=== PATIENT | female | born 1965 | race Caucasian/White ===

== ENCOUNTER 2020-10-25 05:43 | Inpatient (IN) | payer OTHER, SELFPAY ==
[2020-10-25] VITALS (10 sets, daily range): BP systolic 117–150; BP diastolic 56–73; PULSE 18–79; RESP 16–20; TEMP 36.4–36.8; O2SAT 95–98; BMI 40.6
--- NOTE | 2020-10-25 06:40 | ECG_ITS ---
Test Reason : CHEST DISCOMFORT Blood Pressure : / mmHG Vent. Rate : 069 BPM Atrial Rate : 069 BPM P-R Int : 148 ms QRS Dur : 080 ms QT Int : 392 ms P-R-T Axes : 043 024 030 degrees QTc Int : 420 ms Normal sinus rhythm Normal ECG No previous ECGs available Referred By: Kei Slater Electronically Signed By:DEVIN OMER MD
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
[2020-10-25 07:17] LABS: MANUAL DIFF FLAG NO
[2020-10-25] MEDS: clonazePAM 0.5 MG TABLET PO ×3 (07:24→20:20)
[2020-10-25] MEDS: Omeprazole 40 MG CAPSULE.DR PO (07:24)
--- NOTE | 2020-10-25 07:25 | PC.NURSE ---
report taken form Jose Carlos GREER. pt resting on stretcher. no distress. calm and cooperative. pt reports feeling overwhelmed from her job. reports that this morning she felt like she didnt want to feel the pain anymore . reports she had thoughts of overdosing on meds but called her therapist/ and then came to ED for evaluation. pt labs drawn and covid/flu/rsv complete. when pt is medically clear will call n or swat for eval. pt did not want to take catepress with klonopin so only took klonopin. aware.
[2020-10-25 07:35] LABS: Basophils Percent Auto 0.3 % (0-2); Eosinophils Absolute Auto 0.1 X10*3/uL (0.0-0.4); Eosinophils Percent Auto 1.7 % (0-4); Hematocrit 45.7 % (37-47); Hemoglobin 15.3 g/dl (12.0-16.0); Imm Gran Abs Auto 0.04 X10*3/uL (0.00-0.03); Imm Gran Pct Auto 0.6 % (0.0-0.4); Lymphocytes Absolute Auto 1.4 X10*3/uL (1.2-4.9); Lymphocytes Percent Auto 20.1 % (20-40); Mean Corpuscular HGB Conc 33.5 g/dl (31.0-35.0); Mean Corpuscular Hemoglobin 30.4 pg (27.0-33.0); Mean Corpuscular Volume 90.7 fL (80-98); Mean Platelet Volume 9.7 fL (9.4-12.3); Monocytes Absolute Auto 0.5 X10*3/uL (0.1-1.2); Monocytes Percent Auto 7.6 % (2-11); Neutrophils Absolute Auto 4.8 X10*3/uL (2.0-8.3); Neutrophils Percent Auto 69.7 % (45-73); Platelet Count 257 X10*3/uL (160-400); Red Blood Count 5.04 X10*6/uL (4.20-5.50); Red Cell Distribution Width 12.4 % (11.0-16.0); White Blood Count 6.9 X10*3/uL (4.8-10.8)
[2020-10-25 07:38] LABS: Ethanol < 10 mg/dL
[2020-10-25 07:41] LABS: Alanine Aminotransferase 12 U/L (0-31); Alkaline Phosphatase 82 U/L (39-117); Anion Gap 12 (12-20); Aspartate Amino Transferase 21 U/L (5-31); Bilirubin Total 0.5 mg/dL (0.0-1.0); Blood Urea Nitrogen 14 mg/dL (9-16); Calcium 9.5 mg/dL (8.4-10.2); Carbon Dioxide 29 mmol/L (22-29); Chloride 106 mmol/L (96-108); Creatinine Clr Calc Pharmacy 79.3; Estimated Glomerular Filt Rate > 60; Glucose Random 106 mg/dL (60-115); Potassium 4.2 mmol/l (3.3-5.1); Sodium 143 mmol/L (135-145); Total Protein 6.5 g/dL (6.5-8.0)
[2020-10-25 07:47] LABS: Troponin-I High Sensitivity 5.8 ng/L (<3.5-17.0)
[2020-10-25 07:59] LABS: Influenza A PCR NEGATIVE (Negative); Influenza B PCR NEGATIVE (Negative); Resp Syncy Virus RNA Qual PCR NEGATIVE (Negative); SARS COV2 PCR INHOUSE NEGATIVE (Negative)
--- NOTE | 2020-10-25 09:28 | PC.NURSE ---
Late entry: pt transferred to ED pod. Pt reporting that she is not feeling well physically or emotionally, no further details. Reviewed crisis process with pt, and oriented to pod.
[2020-10-25 09:30] LABS: Glucose Urine UA NEG (NEG); Leukocyte Esterase Urine NEG (NEG); Nitrite Urine NEG (NEG); Specific Gravity - Urine 1.015 (1.005-1.025); Urine Blood NEG (NEG); Urine Ketones NEG (NEG); Urine Protein NEG (NEG-TRACE)
[2020-10-25 09:32] LABS: Appearance Urine CLEAR; Color Urine YELLOW
--- NOTE | 2020-10-25 09:55 | PC.NURSE ---
care team in to evaluate pt
[2020-10-25 10:06] LABS: Amphetamine Screen Urine Not Detected (Not Detect); Barbiturates, Urine Not Detected (Not Detect); Benzodiazepines Screen Urine Not Detected (Not Detect); Cannabinoid Screen Urine Not Detected (Not Detect); Cocaine Screen Urine Not Detected (Not Detect); Opiate Screen Urine Not Detected (Not Detect); Phencyclidine Screen Urine Not Detected (Not Detect)
--- NOTE | 2020-10-25 10:25 | PC.NURSE ---
Seen by CARE team, plan for inpatient bedsearch
[2020-10-25] MEDS: cloNIDine HCL 0.1 MG TABLET PO ×3 (10:42→21:25)
[2020-10-25] MEDS: Venlafaxine HCl ER 75 MG CAP.ER.24H PO (10:42)
--- NOTE | 2020-10-25 11:12 | PC.NURSE ---
Pt awake, alert, seen by care team, aware that she is awaiting inpatient bed. Reviewed w/ pty inpatient process- pt states she was admitted to psychiatric unit 17 years ago and so is somewhat familiar. No concerns reported at this time. Given am medications.
--- NOTE | 2020-10-25 15:55 | PC.NURSE ---
Pt resting in room, awake, watching television.
--- NOTE | 2020-10-25 18:51 | PC.NURSE ---
Pt ate turkey sandwich, but unable to eat dinner due to anxiety. Pt states she is anxious about inpatient admission. Spoke w/ pt about inpatient process, pt appeared to be reassured.
--- NOTE | 2020-10-25 20:14 | PC.NURSE ---
Patient in milieu watching TV, pleasant, reported anxiety 03/23, PRN klonopin 0.5 mg administered as ordered, RN to RN reported completed with M5, provider notified/transfer order in placed, deposition pending admission, will continue to monitor.
--- NOTE | 2020-10-25 22:19 | PC.ADMIT ---
this is the first admission for this 55 year old female. legal CV. dx: mdd, anxiety d/o. no drug or alcohol issues. was referred to by the care team after assessment in the er. nurse to nurse, collateral information obtained prior to admission. pt has many outpatient providers and has signed consent for all. reports + support system and has a HCP. encouraged to bring form into the hospital. 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 pt presents as anxious, reports trouble with concentration and focus. low motivation. reports poor sleep. reports decreased appetite reporting she has lost weight, 18# in 6 weeks. pt has multiple medical issues-she uses a cpap machine and has been encouraged to have it brought in. gerd, htn, herpes. pt also has a condition call common variable immune deficiency inwhich she treated with hizentra. this is a SQ administration with a portable pump. it is due on Saturday. pt encouraged to have medication and portable pump brought into the hospital. pt also reports stress incontinence. pt has already received the flu shot. oriented to unit.
[2020-10-25] MEDS: Magnesium Hydrox/Alum Hydrox 30 ML ORAL.SUSP PO (23:07)
[2020-10-25] MEDS: hydrOXYzine HCL 25 MG TABLET PO (23:09)
[2020-10-26 06:10] VITALS: BP 105/65; PULSE 73; RESP 18; TEMP 37; O2SAT 95
[2020-10-26] MEDS: Omeprazole 40 MG CAPSULE.DR PO (06:44)
[2020-10-26 08:48] LABS: Cholesterol 210 mg/dL; HDL Cholesterol 60 mg/dL; LDL Cholesterol Calculated 134 mg/dl; Triglycerides 83 mg/dL
[2020-10-26 09:08] LABS: Free T4 (Free Thyroxine) 1.15 ng/dL (0.71-1.85)
[2020-10-26 09:27] LABS: Estimated Average Glucose 97 mg/dL
[2020-10-26] MEDS: Venlafaxine HCl ER 75 MG CAP.ER.24H PO (09:29)
[2020-10-26 09:30] VITALS: BP 105/65; PULSE 73
[2020-10-26 09:30] LABS: Vitamin B12 299 pg/mL (200-900)
[2020-10-26] MEDS: cloNIDine HCL 0.1 MG TABLET PO ×3 (09:30→20:30)
[2020-10-26] MEDS: clonazePAM 0.5 MG TABLET PO ×3 (09:30→20:28)
[2020-10-26] MEDS: Acetaminophen 325 MG TABLET 650 MG PO (12:06)
[2020-10-26 14:02] VITALS: BP 117/57; PULSE 82
[2020-10-26 14:04] VITALS: BP 117/57; PULSE 82
[2020-10-26] MEDS: Magnesium Hydrox/Alum Hydrox 30 ML ORAL.SUSP PO (17:18)
[2020-10-26 18:00] VITALS: BP 118/76; PULSE 78; TEMP 36.3
[2020-10-26 20:30] VITALS: BP 130/76; PULSE 95
[2020-10-26] MEDS: hydrOXYzine HCL 25 MG TABLET PO (20:31)
--- NOTE | 2020-10-26 21:20 | P.HPPS_ITS ---
HPI Chief Complaint: MAJOR DEPRESSION,NIURKA Sources of Information: patient interviewed, chart reviewed and crisis/core team assessment reviewed HPI Narrative: Ms. Luz is a 55 year-old woman with hx of MDD/NIURKA who self presented to [facility] due to increased anxiety, depressed mood, intrusive/ruminations about somatic concerns. 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 She reports this job was very stressors. It appears that pt began to have somewhat unrealistic fear of harming a patient or having a patient code and not being able to respond appropriately. However, she reports she never had any incident with any of her patients. She also reports that she began checking her own BP incessantly during the day and although slightly elevated but fear her life was at risk. She reports worrying about her financial situation if she can't return to her job or find a new one less stressful. She reports fair sleep. She reports episodes of chest tightness, itchiness on back of neck when feeling anxious. She also has a number of GI complaints and states she has seen GI specialist who gave her carafe. She reports anxious mood has significantly increased to the point that she feels paralyzed. This has trigger symptoms of depression as patient reports feeling increasingly more helpless/hopeless about recovering from severe anxious mood and psychosomatic components. Pt reports she was started on Venlafaxine in August 37.5mg, increased to 75mg po daily begining of September 2020. Pt reports partial response. Past Psychiatric History: Inpatient admission: last inpt 17 years ago, episode of anxiety/depressio n/nightmares, feeling like bugs coming out of her mouth. OP: Pt sees Dr. Xuan Blanton MD; Anny Argueta PsyD ([phone]) Suicide attempts:none Past medication trials: prozac, wellbutrin, lithium, gabapentin, clonidine, effexor, gabapentin, clonazepam. Medical Evaluation Reviewed: Yes [facility] Medical History (Updated 10/27/20 @ 17:55 by Swapna Magaña) Anxiety Depression Hypertension PTSD (post-traumatic stress disorder) Surgical History History of hysterectomy Diagnostics Vital Signs (24Hr): Vital Signs - 24 hr 10/25/20 21:25 10/26/20 06:10 10/26/20 09:30 Temperature 98.6 F Pulse Rate 79 73 73 Respiratory Rate 18 Blood Pressure 117/56 L 105/65 105/65 Pulse Oximetry 95 10/26/20 14:02 10/26/20 14:04 10/26/20 20:30 Temperature Pulse Rate 82 82 95 Respiratory Rate Blood Pressure 117/57 L 117/57 L 130/76 Pulse Oximetry Body Mass Index 40.6 Labs Results: 10/25/20 07:09 10/25/20 07:09 Labs: Laboratory Results - last 48 hr 10/25/20 10/25/20 10/25/20 07:09 07:09 07:09 WBC 6.9 RBC 5.04 Hgb 15.3 Hct 45.7 MCV 90.7 MCH 30.4 MCHC 33.5 RDW 12.4 Plt Count 257 MPV 9.7 Immature Gran % (Auto) 0.6 H Neut % (Auto) 69.7 Lymph % (Auto) 20.1 Hartley % (Auto) 7.6 Eos % (Auto) 1.7 Baso % (Auto) 0.3 Lymph # (Auto) 1.4 Hartley # (Auto) 0.5 Eos # (Auto) 0.1 Baso # (Auto) 0.0 Abs Immat Gran (auto) 0.04 H Absolute Neuts (auto) 4.8 Absolute Nucleated RBC 0.000 Nucleated RBC % (auto) 0.0 Sodium 143 Potassium 4.2 Chloride 106 Carbon Dioxide 29 Anion Gap 12 BUN 14 Creatinine 0.90 Estim Creat Clear Calc 79.3 Estimated GFR > 60 Random Glucose 106 Estimat Average Glucose Hemoglobin A1c % Calcium 9.5 Magnesium Total Bilirubin 0.5 AST 21 ALT 12 Alkaline Phosphatase 82 Troponin I High Sens 5.8 Total Protein 6.5 Albumin 4.0 Triglycerides Cholesterol LDL Cholesterol, Calc HDL Cholesterol Vitamin B12 Folate TSH 1.20 Free T4 Urine Color Urine Appearance Urine pH Ur Specific Iuka Urine Protein Urine Glucose (UA) Urine Ketones Urine Blood Urine Nitrite Ur Leukocyte Esterase Urine Opiates Screen Ur Barbiturates Screen Ur Phencyclidine Scrn Ur Amphetamines Screen U Benzodiazepines Scrn Urine Cocaine Screen U Marijuana (THC) Screen Ethyl Alcohol Coronavirus (PCR) Influenza Type A (PCR) Influenza Type B (PCR) RSV RNA Qual (PCR) 10/25/20 10/25/20 10/25/20 07:09 07:10 09:01 WBC RBC Hgb Hct MCV MCH MCHC RDW Plt Count MPV Immature Gran % (Auto) Neut % (Auto) Lymph % (Auto) Hartley % (Auto) Eos % (Auto) Baso % (Auto) Lymph # (Auto) Hartley # (Auto) Eos # (Auto) Baso # (Auto) Abs Immat Gran (auto) Absolute Neuts (auto) Absolute Nucleated RBC Nucleated RBC % (auto) Sodium Potassium Chloride Carbon Dioxide Anion Gap BUN Creatinine Estim Creat Clear Calc Estimated GFR Random Glucose Estimat Average Glucose Hemoglobin A1c % Calcium Magnesium Total Bilirubin AST ALT Alkaline Phosphatase Troponin I High Sens Total Protein Albumin Triglycerides Cholesterol LDL Cholesterol, Calc HDL Cholesterol Vitamin B12 Folate TSH Free T4 Urine Color YELLOW Urine Appearance CLEAR Urine pH 7.0 Ur Specific Iuka 1.015 Urine Protein NEG Urine Glucose (UA) NEG Urine Ketones NEG Urine Blood NEG Urine Nitrite NEG Ur Leukocyte Esterase NEG Urine Opiates Screen Ur Barbiturates Screen Ur Phencyclidine Scrn Ur Amphetamines Screen U Benzodiazepines Scrn Urine Cocaine Screen U Marijuana (THC) Screen Ethyl Alcohol < 10 Coronavirus (PCR) NEGATIVE Influenza Type A (PCR) NEGATIVE Influenza Type B (PCR) NEGATIVE RSV RNA Qual (PCR) NEGATIVE 10/25/20 10/26/20 10/26/20 09:01 08:00 08:00 WBC RBC Hgb Hct MCV MCH MCHC RDW Plt Count MPV Immature Gran % (Auto) Neut % (Auto) Lymph % (Auto) Hartley % (Auto) Eos % (Auto) Baso % (Auto) Lymph # (Auto) Hartley # (Auto) Eos # (Auto) Baso # (Auto) Abs Immat Gran (auto) Absolute Neuts (auto) Absolute Nucleated RBC Nucleated RBC % (auto) Sodium Potassium Chloride Carbon Dioxide Anion Gap BUN Creatinine Estim Creat Clear Calc Estimated GFR Random Glucose Estimat Average Glucose 97 Hemoglobin A1c % 5.0 Calcium Magnesium 2.0 Total Bilirubin AST ALT Alkaline Phosphatase Troponin I High Sens Total Protein Albumin Triglycerides 83 Cholesterol 210 LDL Cholesterol, Calc 134 HDL Cholesterol 60 Vitamin B12 Folate TSH Free T4 1.15 Urine Color Urine Appearance Urine pH Ur Specific Iuka Urine Protein Urine Glucose (UA) Urine Ketones Urine Blood Urine Nitrite Ur Leukocyte Esterase Urine Opiates Screen Not Detected Ur Barbiturates Screen Not Detected Ur Phencyclidine Scrn Not Detected Ur Amphetamines Screen Not Detected U Benzodiazepines Scrn Not Detected Urine Cocaine Screen Not Detected U Marijuana (THC) Screen Not Detected Ethyl Alcohol Coronavirus (PCR) Influenza Type A (PCR) Influenza Type B (PCR) RSV RNA Qual (PCR) 10/26/20 08:00 WBC RBC Hgb Hct MCV MCH MCHC RDW Plt Count MPV Immature Gran % (Auto) Neut % (Auto) Lymph % (Auto) Hartley % (Auto) Eos % (Auto) Baso % (Auto) Lymph # (Auto) Hartley # (Auto) Eos # (Auto) Baso # (Auto) Abs Immat Gran (auto) Absolute Neuts (auto) Absolute Nucleated RBC Nucleated RBC % (auto) Sodium Potassium Chloride Carbon Dioxide Anion Gap BUN Creatinine Estim Creat Clear Calc Estimated GFR Random Glucose Estimat Average Glucose Hemoglobin A1c % Calcium Magnesium Total Bilirubin AST ALT Alkaline Phosphatase Troponin I High Sens Total Protein Albumin Triglycerides Cholesterol LDL Cholesterol, Calc HDL Cholesterol Vitamin B12 299 Folate 14.0 TSH Free T4 Urine Color Urine Appearance Urine pH Ur Specific Iuka Urine Protein Urine Glucose (UA) Urine Ketones Urine Blood Urine Nitrite Ur Leukocyte Esterase Urine Opiates Screen Ur Barbiturates Screen Ur Phencyclidine Scrn Ur Amphetamines Screen U Benzodiazepines Scrn Urine Cocaine Screen U Marijuana (THC) Screen Ethyl Alcohol Coronavirus (PCR) Influenza Type A (PCR) Influenza Type B (PCR) RSV RNA Qual (PCR) Meds/Allergies Meds Home Medications Acetaminophen (Acetaminophen 325 Mg Tablet) 650 mg PO Q6H PRN PRN Reason: Headache/Pain Mild Scale (1-3) Last Admin: 10/26/20 12:06 Dose: 650 mg Documented by: Al Hydroxide/Mg Hydroxide (Magnesium Hydrox/Alum Hydrox 30 Ml Oral.Susp) 30 ml PO Q6H PRN PRN Reason: Heartburn/Nausea Last Admin: 10/26/20 17:18 Dose: 30 ml Documented by: Aripiprazole (Aripiprazole 2 Mg Tablet) 2 mg PO DAILY [facility] Last Admin: 10/27/20 09:12 Dose: 2 mg Documented by: Clonazepam (Clonazepam 0.5 Mg Tablet) 0.5 mg PO TID NEERAJ Last Admin: 10/27/20 14:30 Dose: Not Given Documented by: Clonidine HCl (Clonidine Hcl 0.1 Mg Tablet) 0.1 mg PO TID [facility]; Protocol Last Admin: 10/27/20 14:31 Dose: Not Given Documented by: Hydroxyzine HCl (Hydroxyzine Hcl 25 Mg Tablet) 25 mg PO BEDTIME PRN PRN Reason: Anxiety Last Admin: 10/26/20 20:31 Dose: 25 mg Documented by: Magnesium Hydroxide (Milk Of Magnesia 30 Ml Oral.Susp) 30 ml PO DAILY PRN PRN Reason: Constipation Last Admin: 10/27/20 09:56 Dose: 30 ml Documented by: Omeprazole (Omeprazole 40 Mg Capsule.Dr) 40 mg PO DAILY [facility] Last Admin: 10/27/20 09:11 Dose: 40 mg Documented by: Simethicone (Simethicone 80 Mg Tab.Chew) 80 mg PO TIDWM [facility] Last Admin: 10/27/20 12:20 Dose: 80 mg Documented by: Trazodone HCl (Trazodone Hcl 50 Mg Tablet) 50 mg PO BEDTIME PRN PRN Reason: Insomnia Venlafaxine HCl (Venlafaxine Hcl Er 75 Mg Cap.Er.24h) 75 mg PO DAILY [facility] Last Admin: 10/27/20 09:12 Dose: 75 mg Documented by: Venlafaxine HCl (Venlafaxine Hcl Er 37.5 Mg Cap.Er.24h) 37.5 mg PO DAILY [facility] Last Admin: 10/27/20 09:12 Dose: 37.5 mg Documented by: Allergies Allergies Allergy/AdvReac Type Severity Reaction Status Date / Time ciprofloxacin Allergy rash Verified 10/25/20 06:38 nitrofurantoin Allergy rash Verified 10/25/20 06:38 [From Macrobid] Sulfa (Sulfonamide Allergy rash Verified 10/25/20 06:38 Antibiotics) quetiapine [From Seroquel] AdvReac suicidal Verified 10/25/20 06:38 ideation Mental Status Exam Mental Status Exam Narrative: Appearance: casually groomed, fair hygiene, uncomfortable with flatulence Behavior: cooperative Psychomotor: some restlessness Speech: clear, normal rate/rhythm, spontaneous TP: tangential TC: somatic complaints, rumination/intrusive thoughts about health/finances, guilt/shame Mood: anxious and depressed Affect: congruent Ah/VH: none Insight/judgment:fair x 2. Memory/cog: alert, oriented x 3. grossly intact to conversational testing. Assessment & Plan Assessment & Plan (1) Common variable immunodeficiency: Status: Acute Code(s): D83.9 - Common variable immunodeficiency, unspecified Assessment and Plan: 1. continue current medications (2) GERD (gastroesophageal reflux disease): Status: Acute Code(s): K21.9 - Gastro-esophageal reflux disease without esophagitis Assessment and Plan: 1. continue omeprazole (3) MDD (major depressive disorder), recurrent severe, without psychosis: Status: Acute Code(s): F33.2 - Major depressive disorder, recurrent severe without psychotic features Assessment and Plan: 1. Increase Venlafaxine to 112.5mg po daily 2. Start abilify 2 mg po daily. (4) NIURKA (generalized anxiety disorder): Status: Acute Code(s): F41.1 - Generalized anxiety disorder
[2020-10-27 06:55] VITALS: BP 144/77; PULSE 86; RESP 16; TEMP 36.9; O2SAT 97
[2020-10-27] MEDS: Simethicone 80 MG TAB.CHEW PO ×3 (09:11→18:14)
[2020-10-27] MEDS: Omeprazole 40 MG CAPSULE.DR PO (09:11)
[2020-10-27 09:12] VITALS: BP 144/77; PULSE 86
[2020-10-27] MEDS: cloNIDine HCL 0.1 MG TABLET PO ×2 (09:12→21:22)
[2020-10-27] MEDS: Venlafaxine HCl ER 75 MG CAP.ER.24H PO (09:12)
[2020-10-27] MEDS: ARIPiprazole 2 MG TABLET PO (09:12)
[2020-10-27] MEDS: Venlafaxine HCl ER 37.5 MG CAP.ER.24H PO (09:12)
[2020-10-27] MEDS: clonazePAM 0.5 MG TABLET PO ×2 (09:13→21:23)
[2020-10-27] MEDS: Milk of Magnesia 30 ML ORAL.SUSP PO (09:56)
--- NOTE | 2020-10-27 17:57 | HO.PSYCHPN ---
Subjective Subjective Date of Service: 10/27/20 Reason For Visit: MAJOR DEPRESSION,NIURKA Subjective Notes: Conditional Voluntary Interim History: Nursing notes reviewed. Pt continues to report intrusive thoughts, rumination about her health/finances. She endorses feelings of worthlessness, guilt/shame. She reports slightly better sleep with atarax. She reports less flatulence with simethicone. She continues to endorse feeling hopeless/helpless and passive suicidal but denies any plan or intent to hurt herself. Medication Compliance: Yes Side effects from medications: No Attending Groups: Yes Review of Systems Constitutional: Reports lethargy Cardiovascular: Reports Abdominal Cramping after Meds and Reports epigastric discomfort Gastrointestinal: Reports dyspepsia Reports Abnormal speech present Mental Status Exam Mental Status Exam Narrative: Appearance: casually groomed, fair hygiene, less uncomfortable with flatulence Behavior: cooperative Psychomotor: some restlessness Speech: clear, normal rate/rhythm, spontaneous TP: tangential TC: somatic complaints, rumination/intrusive thoughts about health/finances, guilt/shame Mood: anxious and depressed Affect: congruent Ah/VH: none Insight/judgment:fair x 2. Memory/cog: alert, oriented x 3. grossly intact to conversational testing. Diagnostics Vital Signs (24Hr): Vital Signs - 24 hr 10/26/20 18:00 10/26/20 20:30 10/27/20 06:55 Temperature 97.4 F 98.5 F Pulse Rate 78 95 86 Respiratory Rate 16 Blood Pressure 118/76 130/76 144/77 H Pulse Oximetry 97 10/27/20 09:12 Temperature Pulse Rate 86 Respiratory Rate Blood Pressure 144/77 H Pulse Oximetry Body Mass Index 40.6 Labs Results: 10/25/20 07:09 10/25/20 07:09 Labs: Laboratory Results - last 48 hr 10/26/20 10/26/20 10/26/20 08:00 08:00 08:00 Estimat Average Glucose 97 Hemoglobin A1c % 5.0 Magnesium 2.0 Triglycerides 83 Cholesterol 210 LDL Cholesterol, Calc 134 HDL Cholesterol 60 Vitamin B12 299 Folate 14.0 Free T4 1.15 Medications Medications Current Medications Generic Name Dose Route Start Last Admin Trade Name Freq PRN Reason Stop Dose Admin Acetaminophen 650 mg 10/25/20 20:25 10/26/20 12:06 Acetaminophen 325 Mg Tablet PO 650 mg Q6H PRN Administration Headache/Pain Mild Scale (1-3) Al Hydroxide/Mg Hydroxide 30 ml 10/25/20 20:25 10/26/20 17:18 Magnesium Hydrox/Alum Hydrox 30 Ml Oral.Susp PO 30 ml Q6H PRN Administration Heartburn/Nausea Aripiprazole 2 mg 10/27/20 09:00 10/27/20 09:12 Aripiprazole 2 Mg Tablet PO 2 mg DAILY NEERAJ Administration Clonazepam 0.5 mg 10/25/20 15:00 10/27/20 14:30 Clonazepam 0.5 Mg Tablet PO Not Given TID NEERAJ Clonidine HCl 0.1 mg 10/25/20 15:00 10/27/20 14:31 Clonidine Hcl 0.1 Mg Tablet PO Not Given TID [facility] Protocol Hydroxyzine HCl 25 mg 10/25/20 20:25 10/26/20 20:31 Hydroxyzine Hcl 25 Mg Tablet PO 25 mg BEDTIME PRN Administration Anxiety Magnesium Hydroxide 30 ml 10/25/20 20:25 10/27/20 09:56 Milk Of Magnesia 30 Ml Oral.Susp PO 30 ml DAILY PRN Administration Constipation Omeprazole 40 mg 10/26/20 09:00 10/27/20 09:11 Omeprazole 40 Mg Capsule.Dr PO 40 mg DAILY NEERAJ Administration Simethicone 80 mg 10/27/20 08:00 10/27/20 12:20 Simethicone 80 Mg Tab.Chew PO 80 mg TIDWM NEERAJ Administration Trazodone HCl 50 mg 10/25/20 20:25 Trazodone Hcl 50 Mg Tablet PO BEDTIME PRN Insomnia Venlafaxine HCl 75 mg 10/27/20 09:00 10/27/20 09:12 Venlafaxine Hcl Er 75 Mg Cap.Er.24h PO 75 mg DAILY NEERAJ Administration Venlafaxine HCl 37.5 mg 10/27/20 09:00 10/27/20 09:12 Venlafaxine Hcl Er 37.5 Mg Cap.Er.24h PO 37.5 mg DAILY NEERAJ Administration Allergies Allergies Allergy/AdvReac Type Severity Reaction Status Date / Time ciprofloxacin Allergy rash Verified 10/25/20 06:38 nitrofurantoin Allergy rash Verified 10/25/20 06:38 [From Macrobid] Sulfa (Sulfonamide Allergy rash Verified 10/25/20 06:38 Antibiotics) quetiapine [From Seroquel] AdvReac suicidal Verified 10/25/20 06:38 ideation Assessment & Plan Assessment & Plan (1) MDD (major depressive disorder), recurrent severe, without psychosis: Status: Acute Code(s): F33.2 - Major depressive disorder, recurrent severe without psychotic features Assessment and Plan: 1. continue venlafaxine 112.5mg po daily 2. continue abilify 2mg po daily (2) NIURKA (generalized anxiety disorder): Status: Acute Code(s): F41.1 - Generalized anxiety disorder Assessment and Plan: 1. continue clonidine and clonazepam Greater than 50% of the session was spent on counseling and/or coordination of care Patient educated on: diagnosis, medication risk/benefits and therapeutic strategies Informed Consent: understands Reason for contiued inpatient stay Substantial Risk for: harm to self and inability to function
--- NOTE | 2020-10-27 19:28 | PC.NURSE ---
Pt refused UA ; pt said has history of hysterectomy.
[2020-10-27 20:35] VITALS: BP 113/83; PULSE 95; TEMP 36.9
[2020-10-27 21:22] VITALS: BP 113/83; PULSE 95
[2020-10-27] MEDS: hydrOXYzine HCL 25 MG TABLET PO (21:23)
[2020-10-28 06:00] VITALS: BP 116/56; PULSE 70; TEMP 36.4; O2SAT 97
[2020-10-28] MEDS: clonazePAM 0.5 MG TABLET PO ×2 (08:57→20:22)
[2020-10-28] MEDS: Venlafaxine HCl ER 37.5 MG CAP.ER.24H PO (08:58)
[2020-10-28] MEDS: ARIPiprazole 2 MG TABLET PO (08:58)
[2020-10-28 08:59] VITALS: BP 116/56; PULSE 70
[2020-10-28] MEDS: Omeprazole 40 MG CAPSULE.DR PO (08:59)
[2020-10-28] MEDS: Venlafaxine HCl ER 75 MG CAP.ER.24H PO (08:59)
[2020-10-28] MEDS: cloNIDine HCL 0.1 MG TABLET PO ×2 (08:59→20:22)
[2020-10-28] MEDS: Simethicone 80 MG TAB.CHEW PO ×3 (09:02→16:41)
[2020-10-28] MEDS: hydrOXYzine HCL 50 MG TABLET PO (14:18)
[2020-10-28 15:00] VITALS: BP 135/58; PULSE 86; RESP 16; TEMP 36.9; O2SAT 97
[2020-10-28 15:17] VITALS: BP 109/51; PULSE 77; RESP 18; TEMP 36.9; O2SAT 97
--- NOTE | 2020-10-28 15:18 | PC.NURSE ---
Pt self administered Hizentra 13 gms subcutaneous.Visteral 50mg po ordered and given prior to treatment. Vital signs 15 min after the start of infusion are WNL. MHC in attendence while infusion is going. Pt denies any discomfort ,SOB or iff effects.
--- NOTE | 2020-10-28 16:12 | P.PNPSI_ITS ---
Subjective Subjective Date of Service: 10/28/20 Reason For Visit: MAJOR DEPRESSION,NIURKA Interim History: Nursing notes reviewed. Pt reports feeling very sedated with abilify. She does not that some of the intrusive thoughts of something terrible going to happen to her although present were slightly less intense. We discussed lowering clonazepam and clonidine. Pt reports fair sleep last night but thinks she slept during the day yesterday and this affected her night sleep. She continues to endorse depressed mood, anxious mood, feeling very hopeless/helpless, guilt related to decision to change jobs although we discussed that it appears something triggered this intense anxiety and fear that she would hurt her pts. Review of Systems Review of Systems Yes all other systems are reviewed and are negative Reports Abnormal speech present Mental Status Exam Mental Status Exam Narrative: Appearance: casually groomed, fair hygiene, less uncomfortable with flatulence Behavior: cooperative Psychomotor: some restlessness Speech: clear, normal rate/rhythm, spontaneous TP: tangential TC: somatic complaints, rumination/intrusive thoughts about health/finances, guilt/shame Mood: anxious and depressed Affect: congruent Ah/VH: none Insight/judgment:fair x 2. Memory/cog: alert, oriented x 3. grossly intact to conversational testing. Diagnostics Vital Signs (24Hr): Vital Signs - 24 hr 10/27/20 20:35 10/27/20 21:22 10/28/20 06:00 Temperature 98.4 F 97.6 F Pulse Rate 95 95 70 Respiratory Rate Blood Pressure 113/83 113/83 116/56 L Pulse Oximetry 97 10/28/20 08:59 10/28/20 15:00 10/28/20 15:17 Temperature 98.4 F 98.4 F Pulse Rate 70 86 77 Respiratory Rate 16 18 Blood Pressure 116/56 L 135/58 L 109/51 L Pulse Oximetry 97 97 Body Mass Index 40.6 Labs Results: 10/25/20 07:09 10/25/20 07:09 Medications Medications Current Medications Generic Name Dose Route Start Last Admin Trade Name Freq PRN Reason Stop Dose Admin Acetaminophen 650 mg 10/25/20 20:25 10/26/20 12:06 Acetaminophen 325 Mg Tablet PO 650 mg Q6H PRN Administration Headache/Pain Mild Scale (1-3) Al Hydroxide/Mg Hydroxide 30 ml 10/25/20 20:25 10/26/20 17:18 Magnesium Hydrox/Alum Hydrox 30 Ml Oral.Susp PO 30 ml Q6H PRN Administration Heartburn/Nausea Aripiprazole 2 mg 10/27/20 09:00 10/28/20 08:58 Aripiprazole 2 Mg Tablet PO 2 mg DAILY NEERAJ Administration Clonazepam 0.5 mg 10/28/20 21:00 Clonazepam 0.5 Mg Tablet PO BID NEERAJ Clonidine HCl 0.1 mg 10/28/20 21:00 Clonidine Hcl 0.1 Mg Tablet PO BID [facility] Protocol Hydroxyzine HCl 50 mg 10/28/20 13:47 10/28/20 14:18 Hydroxyzine Hcl 50 Mg Tablet PO 50 mg Q6H PRN Administration anxiety/sleep Magnesium Hydroxide 30 ml 10/25/20 20:25 10/27/20 09:56 Milk Of Magnesia 30 Ml Oral.Susp PO 30 ml DAILY PRN Administration Constipation Omeprazole 40 mg 10/26/20 09:00 10/28/20 08:59 Omeprazole 40 Mg Capsule.Dr PO 40 mg DAILY NEERAJ Administration Simethicone 80 mg 10/27/20 08:00 10/28/20 12:00 Simethicone 80 Mg Tab.Chew PO 80 mg TIDWM NEERAJ Administration Trazodone HCl 50 mg 10/25/20 20:25 Trazodone Hcl 50 Mg Tablet PO BEDTIME PRN Insomnia Venlafaxine HCl 75 mg 10/27/20 09:00 10/28/20 08:59 Venlafaxine Hcl Er 75 Mg Cap.Er.24h PO 75 mg DAILY NEERAJ Administration Venlafaxine HCl 37.5 mg 10/27/20 09:00 10/28/20 08:58 Venlafaxine Hcl Er 37.5 Mg Cap.Er.24h PO 37.5 mg DAILY NEERAJ Administration Allergies Allergies Allergy/AdvReac Type Severity Reaction Status Date / Time ciprofloxacin Allergy rash Verified 10/25/20 06:38 nitrofurantoin Allergy rash Verified 10/25/20 06:38 [From Macrobid] Sulfa (Sulfonamide Allergy rash Verified 10/25/20 06:38 Antibiotics) quetiapine [From Seroquel] AdvReac suicidal Verified 10/25/20 06:38 ideation Assessment & Plan Assessment & Plan (1) MDD (major depressive disorder), recurrent severe, without psychosis: Status: Acute Code(s): F33.2 - Major depressive disorder, recurrent severe without psychotic features Assessment and Plan: 1. continue venlafaxine 112.5mg po daily 2. continue abilify 2mg po daily (2) NIURKA (generalized anxiety disorder): Status: Acute Code(s): F41.1 - Generalized anxiety disorder Assessment and Plan: 1. Decrease clonidine from 0.1mg po TID to BID 2. Decrease clonazepam from 0.5mg po TID to BID. Greater than 50% of the session was spent on counseling and/or coordination of care
[2020-10-28 18:00] VITALS: BP 112/56; PULSE 65; TEMP 36.7
[2020-10-28 20:22] VITALS: BP 112/56; PULSE 65
[2020-10-29] MEDS: traZODone HCL 50 MG TABLET PO ×3 (02:01→22:18)
[2020-10-29 06:20] VITALS: BP 133/61; PULSE 79; RESP 16; TEMP 36.4; O2SAT 97
[2020-10-29] MEDS: Omeprazole 40 MG CAPSULE.DR PO (08:57)
[2020-10-29 08:58] VITALS: BP 133/61; PULSE 79
[2020-10-29] MEDS: clonazePAM 0.5 MG TABLET PO ×2 (08:58→20:48)
[2020-10-29] MEDS: cloNIDine HCL 0.1 MG TABLET PO (08:58)
[2020-10-29] MEDS: Venlafaxine HCl ER 75 MG CAP.ER.24H PO (08:58)
[2020-10-29] MEDS: ARIPiprazole 2 MG TABLET PO (08:59)
[2020-10-29] MEDS: Venlafaxine HCl ER 37.5 MG CAP.ER.24H PO (08:59)
[2020-10-29] MEDS: Simethicone 80 MG TAB.CHEW PO ×3 (09:21→17:09)
[2020-10-29 17:25] VITALS: BP 106/70; PULSE 75; TEMP 36.3
--- NOTE | 2020-10-29 19:53 | P.PNPSI_ITS ---
Subjective Subjective Date of Service: 10/29/20 Reason For Visit: MAJOR DEPRESSION,NIURKA Interim History: Discussed effects her work has had upon her mental health. Insightful and attempting to trace symptoms to stressors. Medication Compliance: Yes Side effects from medications: No Attending Groups: Yes Review of Systems Reports Abnormal speech present, Reports behavioral changes and Reports memory loss Psychiatric: Reports anxiety, Reports behavioral changes, Reports depression, Reports difficulty concentrating, Reports hopelessness, Reports irritability, Reports memory loss and Reports panic attacks Mental Status Exam Mental Status Exam Patient Appearance: Appropriate Patient Orientation: Person, Place, Time and Situation Level of Consciousness: Alert Patient Behavior: Talkative Mood Description: Depressed and Anxious Affect Description: Flat Patient Cognition Impaired: No Ability to Follow Directions: Good Speech Pattern: Spontaneous Speech Memory Description: Intact Hallucinations: None Delusions: Not Present Thought Process: Goal Oriented and Linear Thought Content: positive for Circumstantial, positive for Goal Oriented, p ositive for Linear, positive for Perseveration and positive for Logical Depressive Symptoms: Increased Anxiety, Insomnia and Difficulty Sleeping Judgement: Fair Diagnostics Vital Signs (24Hr): Vital Signs - 24 hr 10/28/20 20:22 10/29/20 06:20 10/29/20 08:58 Temperature 97.6 F Pulse Rate 65 79 79 Respiratory Rate 16 Blood Pressure 112/56 L 133/61 133/61 Pulse Oximetry 97 10/29/20 17:25 Temperature 97.3 F Pulse Rate 75 Respiratory Rate Blood Pressure 106/70 Pulse Oximetry Body Mass Index 40.6 Labs Results: 10/25/20 07:09 10/25/20 07:09 Medications Medications Current Medications Generic Name Dose Route Start Last Admin Trade Name Tavoq PRN Reason Stop Dose Admin Acetaminophen 650 mg 10/25/20 20:25 10/26/20 12:06 Acetaminophen 325 Mg Tablet PO 650 mg Q6H PRN Administration Headache/Pain Mild Scale (1-3) Al Hydroxide/Mg Hydroxide 30 ml 10/25/20 20:25 10/26/20 17:18 Magnesium Hydrox/Alum Hydrox 30 Ml Oral.Susp PO 30 ml Q6H PRN Administration Heartburn/Nausea Aripiprazole 2 mg 10/27/20 09:00 10/29/20 08:59 Aripiprazole 2 Mg Tablet PO 2 mg DAILY NEERAJ Administration Clonazepam 0.5 mg 10/28/20 21:00 10/29/20 08:58 Clonazepam 0.5 Mg Tablet PO 0.5 mg BID NEERAJ Administration Clonidine HCl 0.1 mg 10/28/20 21:00 10/29/20 08:58 Clonidine Hcl 0.1 Mg Tablet PO 0.1 mg BID NEERAJ Administration Protocol Hydroxyzine HCl 50 mg 10/28/20 13:47 10/28/20 14:18 Hydroxyzine Hcl 50 Mg Tablet PO 50 mg Q6H PRN Administration anxiety/sleep Magnesium Hydroxide 30 ml 10/25/20 20:25 10/27/20 09:56 Milk Of Magnesia 30 Ml Oral.Susp PO 30 ml DAILY PRN Administration Constipation Omeprazole 40 mg 10/26/20 09:00 10/29/20 08:57 Omeprazole 40 Mg Capsule.Dr PO 40 mg DAILY NEERAJ Administration Simethicone 80 mg 10/27/20 08:00 10/29/20 17:09 Simethicone 80 Mg Tab.Chew PO 80 mg TIDWM NEERAJ Administration Trazodone HCl 50 mg 10/25/20 20:25 10/29/20 02:01 Trazodone Hcl 50 Mg Tablet PO 50 mg BEDTIME PRN Administration Insomnia Venlafaxine HCl 75 mg 10/27/20 09:00 10/29/20 08:58 Venlafaxine Hcl Er 75 Mg Cap.Er.24h PO 75 mg DAILY NEERAJ Administration Venlafaxine HCl 37.5 mg 10/27/20 09:00 10/29/20 08:59 Venlafaxine Hcl Er 37.5 Mg Cap.Er.24h PO 37.5 mg DAILY NEERAJ Administration Allergies Allergies Allergy/AdvReac Type Severity Reaction Status Date / Time ciprofloxacin Allergy rash Verified 10/25/20 06:38 nitrofurantoin Allergy rash Verified 10/25/20 06:38 [From Macrobid] Sulfa (Sulfonamide Allergy rash Verified 10/25/20 06:38 Antibiotics) quetiapine [From Seroquel] AdvReac suicidal Verified 10/25/20 06:38 ideation Assessment & Plan Assessment & Plan (1) NIURKA (generalized anxiety disorder): Status: Acute Code(s): F41.1 - Generalized anxiety disorder (2) MDD (major depressive disorder), recurrent severe, without psychosis: Status: Acute Code(s): F33.2 - Major depressive disorder, recurrent severe without psychotic features Assessment and Plan: Review of Trazodone and sleep hygiene. Greater than 50% of the session was spent on counseling and/or coordination of care
[2020-10-29 21:02] VITALS: BP 107/53; PULSE 68
[2020-10-30] MEDS: Magnesium Hydrox/Alum Hydrox 30 ML ORAL.SUSP PO ×2 (02:22→21:17)
[2020-10-30] MEDS: hydrOXYzine HCL 50 MG TABLET PO (02:22)
[2020-10-30 06:35] VITALS: BP 124/69; PULSE 88; RESP 16; TEMP 35.9; O2SAT 97
[2020-10-30 08:59] VITALS: BP 124/69; PULSE 88
[2020-10-30] MEDS: Venlafaxine HCl ER 37.5 MG CAP.ER.24H PO (08:59)
[2020-10-30] MEDS: Simethicone 80 MG TAB.CHEW PO ×3 (08:59→16:42)
[2020-10-30] MEDS: Venlafaxine HCl ER 75 MG CAP.ER.24H PO (08:59)
[2020-10-30] MEDS: cloNIDine HCL 0.1 MG TABLET PO ×2 (08:59→21:13)
[2020-10-30] MEDS: clonazePAM 0.5 MG TABLET PO (09:00)
[2020-10-30] MEDS: Omeprazole 40 MG CAPSULE.DR PO (09:00)
[2020-10-30] MEDS: ARIPiprazole 2 MG TABLET PO (09:00)
[2020-10-30] MEDS: ARIPiprazole 2 MG TABLET 3 MG PO (13:01)
[2020-10-30 18:00] VITALS: BP 130/60; PULSE 82; TEMP 36.7
--- NOTE | 2020-10-30 19:58 | HO.PSYCHPN ---
Subjective Subjective Date of Service: 10/30/20 Reason For Visit: MAJOR DEPRESSION,NIURKA Interim History: Pt reports poor sleep with Trazodone, Vistaril. Reports the sensation of burning in her biceps/chest was relieved with Abilify but has returned. Discussed titration options. Medication Compliance: Yes Side effects from medications: No Attending Groups: Yes Review of Systems Reports Abnormal speech present, Reports behavioral changes and Reports memory loss Psychiatric: Reports abnormal sleep pattern, Reports anxiety, Reports behavioral changes, Reports depression, Reports difficulty concentrating, Reports hopelessness and Reports memory loss Mental Status Exam Mental Status Exam Patient Appearance: Appropriate Patient Orientation: Person, Place, Time and Situation Level of Consciousness: Awake and Alert Patient Behavior: Appropriate and Anxious Mood Description: Depressed and Anxious Affect Description: Flat Patient Cognition Impaired: No Ability to Follow Directions: Good Speech Pattern: Spontaneous Speech Memory Description: Intact Hallucinations: None Delusions: Not Present Thought Process: Intact Thought Content: positive for Intact Depressive Symptoms: Increased Anxiety, Diff. Making Decisions, Hopelessness and Increased Fatigue Judgement: Good Diagnostics Vital Signs (24Hr): Vital Signs - 24 hr 10/29/20 21:02 10/30/20 06:35 10/30/20 08:59 Temperature 96.7 F L Pulse Rate 68 88 88 Respiratory Rate 16 Blood Pressure 107/53 L 124/69 124/69 Pulse Oximetry 97 Body Mass Index 40.6 Labs Results: 10/25/20 07:09 10/25/20 07:09 Medications Medications Current Medications Generic Name Dose Route Start Last Admin Trade Name Freq PRN Reason Stop Dose Admin Acetaminophen 650 mg 10/25/20 20:25 10/26/20 12:06 Acetaminophen 325 Mg Tablet PO 650 mg Q6H PRN Administration Headache/Pain Mild Scale (1-3) Al Hydroxide/Mg Hydroxide 30 ml 10/25/20 20:25 10/30/20 02:22 Magnesium Hydrox/Alum Hydrox 30 Ml Oral.Susp PO 30 ml Q6H PRN Administration Heartburn/Nausea Aripiprazole 5 mg 10/31/20 09:00 Aripiprazole 5 Mg Tablet PO DAILY NEERAJ Clonazepam 0.5 mg 10/31/20 09:00 Clonazepam 0.5 Mg Tablet PO DAILY NEERAJ Clonazepam 1 mg 10/30/20 21:00 Clonazepam 1 Mg Tablet PO BEDTIME NEERAJ Clonidine HCl 0.1 mg 10/28/20 21:00 10/30/20 08:59 Clonidine Hcl 0.1 Mg Tablet PO 0.1 mg BID NEERAJ Administration Protocol Hydroxyzine HCl 50 mg 10/28/20 13:47 10/30/20 02:22 Hydroxyzine Hcl 50 Mg Tablet PO 50 mg Q6H PRN Administration anxiety/sleep Magnesium Hydroxide 30 ml 10/25/20 20:25 10/27/20 09:56 Milk Of Magnesia 30 Ml Oral.Susp PO 30 ml DAILY PRN Administration Constipation Omeprazole 40 mg 10/26/20 09:00 10/30/20 09:00 Omeprazole 40 Mg Capsule.Dr PO 40 mg DAILY NEERAJ Administration Simethicone 80 mg 10/27/20 08:00 10/30/20 16:42 Simethicone 80 Mg Tab.Chew PO 80 mg TIDWM NEERAJ Administration Venlafaxine HCl 75 mg 10/27/20 09:00 10/30/20 08:59 Venlafaxine Hcl Er 75 Mg Cap.Er.24h PO 75 mg DAILY NEERAJ Administration Venlafaxine HCl 37.5 mg 10/27/20 09:00 10/30/20 08:59 Venlafaxine Hcl Er 37.5 Mg Cap.Er.24h PO 37.5 mg DAILY NEERAJ Administration Allergies Allergies Allergy/AdvReac Type Severity Reaction Status Date / Time ciprofloxacin Allergy rash Verified 10/25/20 06:38 nitrofurantoin Allergy rash Verified 10/25/20 06:38 [From Macrobid] Sulfa (Sulfonamide Allergy rash Verified 10/25/20 06:38 Antibiotics) quetiapine [From Seroquel] AdvReac suicidal Verified 10/25/20 06:38 ideation Assessment & Plan Assessment & Plan (1) NIURKA (generalized anxiety disorder): Status: Acute Code(s): F41.1 - Generalized anxiety disorder Assessment and Plan: Increase Klonopin to 0.5 mg a.m. 1 mg hs (2) MDD (major depressive disorder), recurrent severe, without psychosis: Status: Acute Code(s): F33.2 - Major depressive disorder, recurrent severe without psychotic features Assessment and Plan: Increase Abilify to 5 mg daily Greater than 50% of the session was spent on counseling and/or coordination of care
[2020-10-30 21:13] VITALS: BP 130/60; PULSE 82
[2020-10-30] MEDS: clonazePAM 1 MG TABLET PO (21:13)
[2020-10-31 06:55] VITALS: BP 130/65; PULSE 84; RESP 16; TEMP 36.7; O2SAT 97
[2020-10-31] MEDS: Omeprazole 40 MG CAPSULE.DR PO (08:52)
[2020-10-31] MEDS: ARIPiprazole 5 MG TABLET PO (08:53)
[2020-10-31] MEDS: Venlafaxine HCl ER 37.5 MG CAP.ER.24H PO (08:53)
[2020-10-31] MEDS: Venlafaxine HCl ER 75 MG CAP.ER.24H PO (08:53)
[2020-10-31] MEDS: clonazePAM 0.5 MG TABLET PO (08:53)
[2020-10-31 08:54] VITALS: BP 130/65; PULSE 84
[2020-10-31] MEDS: Simethicone 80 MG TAB.CHEW PO ×3 (08:54→18:59)
[2020-10-31] MEDS: cloNIDine HCL 0.1 MG TABLET PO ×2 (08:54→21:14)
[2020-10-31] MEDS: hydrOXYzine HCL 50 MG TABLET PO (14:55)
--- NOTE | 2020-10-31 15:10 | HO.PSYCHPN ---
Subjective Subjective Date of Service: 10/31/20 Reason For Visit: MAJOR DEPRESSION,NIURKA Interim History: Pt reportsslight improvement in symptoms of depression and anxiety. Pt reports she is not as hopeless as when she first came to the unit. She also reports slight improvement in intrusive thoughts mostly of somatic concerns. She continues to endorse depressed mood, anxious mood. She reports sleep last night was fair. She denies SI/HI. She has been visible in the unit, interactive with peers. No behavioral concerns. Review of Systems Review of Systems Yes all other systems are reviewed and are negative Reports Abnormal speech present, Reports behavioral changes and Reports memory loss Psychiatric: Reports behavioral changes and Reports memory loss Mental Status Exam Mental Status Exam Narrative: Appearance: casually groomed, fair hygiene, less uncomfortable with flatulence Behavior: cooperative Psychomotor: some restlessness Speech: clear, normal rate/rhythm, spontaneous TP: tangential TC: somatic complaints, rumination/intrusive thoughts about health/finances, guilt/shame Mood: anxious and depressed Affect: congruent Ah/VH: none Insight/judgment:fair x 2. Memory/cog: alert, oriented x 3. grossly intact to conversational testing. Patient Appearance: Appropriate Patient Orientation: Person, Place, Time and Situation Level of Consciousness: Awake and Alert Patient Behavior: Appropriate and Anxious Mood Description: Depressed and Anxious Affect Description: Flat Patient Cognition Impaired: No Ability to Follow Directions: Good Speech Pattern: Spontaneous Speech Memory Description: Intact Diagnostics Vital Signs (24Hr): Vital Signs - 24 hr 10/30/20 18:00 10/30/20 21:13 10/31/20 06:55 Temperature 98.0 F 98.1 F Pulse Rate 82 82 84 Respiratory Rate 16 Blood Pressure 130/60 130/60 130/65 Pulse Oximetry 97 10/31/20 08:54 Temperature Pulse Rate 84 Respiratory Rate Blood Pressure 130/65 Pulse Oximetry Body Mass Index 40.6 Labs Results: 10/25/20 07:09 10/25/20 07:09 Medications Medications Current Medications Generic Name Dose Route Start Last Admin Trade Name Freq PRN Reason Stop Dose Admin Acetaminophen 650 mg 10/25/20 20:25 10/26/20 12:06 Acetaminophen 325 Mg Tablet PO 650 mg Q6H PRN Administration Headache/Pain Mild Scale (1-3) Al Hydroxide/Mg Hydroxide 30 ml 10/25/20 20:25 10/30/20 21:17 Magnesium Hydrox/Alum Hydrox 30 Ml Oral.Susp PO 30 ml Q6H PRN Administration Heartburn/Nausea Aripiprazole 5 mg 10/31/20 09:00 10/31/20 08:53 Aripiprazole 5 Mg Tablet PO 5 mg DAILY NEERAJ Administration Clonazepam 0.5 mg 10/31/20 09:00 10/31/20 08:53 Clonazepam 0.5 Mg Tablet PO 0.5 mg DAILY NEERAJ Administration Clonazepam 1 mg 10/30/20 21:00 10/30/20 21:13 Clonazepam 1 Mg Tablet PO 1 mg BEDTIME NEERAJ Administration Clonidine HCl 0.1 mg 10/28/20 21:00 10/31/20 08:54 Clonidine Hcl 0.1 Mg Tablet PO 0.1 mg BID NEERAJ Administration Protocol Hydroxyzine HCl 50 mg 10/28/20 13:47 10/31/20 14:55 Hydroxyzine Hcl 50 Mg Tablet PO 50 mg Q6H PRN Administration anxiety/sleep Magnesium Hydroxide 30 ml 10/25/20 20:25 10/27/20 09:56 Milk Of Magnesia 30 Ml Oral.Susp PO 30 ml DAILY PRN Administration Constipation Omeprazole 40 mg 10/26/20 09:00 10/31/20 08:52 Omeprazole 40 Mg Capsule.Dr PO 40 mg DAILY NEERAJ Administration Simethicone 80 mg 10/27/20 08:00 10/31/20 13:33 Simethicone 80 Mg Tab.Chew PO 80 mg TIDWM NEERAJ Administration Venlafaxine HCl 75 mg 10/27/20 09:00 10/31/20 08:53 Venlafaxine Hcl Er 75 Mg Cap.Er.24h PO 75 mg DAILY NEERAJ Administration Venlafaxine HCl 37.5 mg 10/27/20 09:00 10/31/20 08:53 Venlafaxine Hcl Er 37.5 Mg Cap.Er.24h PO 37.5 mg DAILY NEERAJ Administration Allergies Allergies Allergy/AdvReac Type Severity Reaction Status Date / Time ciprofloxacin Allergy rash Verified 10/25/20 06:38 nitrofurantoin Allergy rash Verified 10/25/20 06:38 [From Macrobid] Sulfa (Sulfonamide Allergy rash Verified 10/25/20 06:38 Antibiotics) quetiapine [From Seroquel] AdvReac suicidal Verified 10/25/20 06:38 ideation Assessment & Plan Assessment & Plan (1) MDD (major depressive disorder), recurrent severe, without psychosis: Status: Acute Code(s): F33.2 - Major depressive disorder, recurrent severe without psychotic features Assessment and Plan: 1. continue venlafaxine 112.5mg po daily 2. continue abilify 5mg po daily (2) NIURKA (generalized anxiety disorder): Status: Acute Code(s): F41.1 - Generalized anxiety disorder Assessment and Plan: 1. Continue clonidine 2. Continue clonazepam from 0.5mg po daily and 1mg po qhs. Greater than 50% of the session was spent on counseling and/or coordination of care
[2020-10-31 21:14] VITALS: BP 144/67; PULSE 66
[2020-10-31] MEDS: clonazePAM 1 MG TABLET PO (21:14)
[2020-10-31 22:00] VITALS: BP 144/67; PULSE 66; TEMP 36.2
[2020-11-01] MEDS: Melatonin 3 MG TABLET 6 MG PO ×2 (00:03→22:44)
[2020-11-01 06:30] VITALS: BP 113/54; PULSE 63; RESP 16; TEMP 36.4; O2SAT 97
[2020-11-01] MEDS: Venlafaxine HCl ER 37.5 MG CAP.ER.24H PO (08:59)
[2020-11-01 09:00] VITALS: BP 113/54; PULSE 63
[2020-11-01] MEDS: ARIPiprazole 5 MG TABLET PO (09:00)
[2020-11-01] MEDS: Venlafaxine HCl ER 75 MG CAP.ER.24H PO (09:00)
[2020-11-01] MEDS: Omeprazole 40 MG CAPSULE.DR PO (09:00)
[2020-11-01] MEDS: Simethicone 80 MG TAB.CHEW PO ×3 (09:00→18:03)
[2020-11-01] MEDS: cloNIDine HCL 0.1 MG TABLET PO ×2 (09:00→21:32)
[2020-11-01] MEDS: clonazePAM 0.5 MG TABLET PO (09:00)
--- NOTE | 2020-11-01 15:46 | P.PNPSI_ITS ---
Subjective Subjective Date of Service: 11/01/20 Reason For Visit: MAJOR DEPRESSION,NIURKA Interim History: Pt reports feeling less hopeless/helpless, less anxious. She also reports less intrusive thoughts. She denies SI/HI. She reports good sleep last night with current medications and addition of melatonin. She does report feeling somewhat tired during the day and wonders if this is due to clonidine in the morninig. We discussed lowering dose to 0.1mg po qhs. Review of Systems Review of Systems Yes all other systems are reviewed and are negative Reports Abnormal speech present, Reports behavioral changes and Reports memory loss Psychiatric: Reports behavioral changes and Reports memory loss Mental Status Exam Mental Status Exam Narrative: Appearance: casually groomed, fair hygiene, less uncomfortable with flatulence Behavior: cooperative Psychomotor: some restlessness Speech: clear, normal rate/rhythm, spontaneous TP: tangential TC: somatic complaints, rumination/intrusive thoughts about health/finances, guilt/shame Mood: anxious and depressed Affect: congruent Ah/VH: none Insight/judgment:fair x 2. Memory/cog: alert, oriented x 3. grossly intact to conversational testing. Patient Appearance: Appropriate Patient Orientation: Person, Place, Time and Situation Level of Consciousness: Awake and Alert Patient Behavior: Appropriate and Anxious Mood Description: Depressed and Anxious Affect Description: Flat Patient Cognition Impaired: No Ability to Follow Directions: Good Speech Pattern: Spontaneous Speech Memory Description: Intact Diagnostics Vital Signs (24Hr): Vital Signs - 24 hr 10/31/20 21:14 10/31/20 22:00 11/01/20 06:30 Temperature 97.2 F 97.5 F Pulse Rate 66 66 63 Respiratory Rate 16 Blood Pressure 144/67 H 144/67 H 113/54 L Pulse Oximetry 97 11/01/20 09:00 Temperature Pulse Rate 63 Respiratory Rate Blood Pressure 113/54 L Pulse Oximetry Body Mass Index 40.6 Labs Results: 10/25/20 07:09 10/25/20 07:09 Medications Medications Current Medications Generic Name Dose Route Start Last Admin Trade Name Freq PRN Reason Stop Dose Admin Acetaminophen 650 mg 10/25/20 20:25 10/26/20 12:06 Acetaminophen 325 Mg Tablet PO 650 mg Q6H PRN Administration Headache/Pain Mild Scale (1-3) Al Hydroxide/Mg Hydroxide 30 ml 10/25/20 20:25 10/30/20 21:17 Magnesium Hydrox/Alum Hydrox 30 Ml Oral.Susp PO 30 ml Q6H PRN Administration Heartburn/Nausea Aripiprazole 5 mg 10/31/20 09:00 11/01/20 09:00 Aripiprazole 5 Mg Tablet PO 5 mg DAILY NEERAJ Administration Clonazepam 0.5 mg 10/31/20 09:00 11/01/20 09:00 Clonazepam 0.5 Mg Tablet PO 0.5 mg DAILY NEERAJ Administration Clonazepam 1 mg 10/30/20 21:00 10/31/20 21:14 Clonazepam 1 Mg Tablet PO 1 mg BEDTIME NEERAJ Administration Clonidine HCl 0.1 mg 11/01/20 21:00 Clonidine Hcl 0.1 Mg Tablet PO BEDTIME [facility] Protocol Hydroxyzine HCl 50 mg 10/28/20 13:47 10/31/20 14:55 Hydroxyzine Hcl 50 Mg Tablet PO 50 mg Q6H PRN Administration anxiety/sleep Magnesium Hydroxide 30 ml 10/25/20 20:25 10/27/20 09:56 Milk Of Magnesia 30 Ml Oral.Susp PO 30 ml DAILY PRN Administration Constipation Melatonin 6 mg 10/31/20 15:14 11/01/20 00:03 Melatonin 3 Mg Tablet PO 6 mg BEDTIME PRN Administration Sleep Omeprazole 40 mg 10/26/20 09:00 11/01/20 09:00 Omeprazole 40 Mg Capsule.Dr PO 40 mg DAILY NEERAJ Administration Simethicone 80 mg 10/27/20 08:00 11/01/20 12:33 Simethicone 80 Mg Tab.Chew PO 80 mg TIDWM NEERAJ Administration Venlafaxine HCl 75 mg 10/27/20 09:00 11/01/20 09:00 Venlafaxine Hcl Er 75 Mg Cap.Er.24h PO 75 mg DAILY NEERAJ Administration Venlafaxine HCl 37.5 mg 10/27/20 09:00 11/01/20 08:59 Venlafaxine Hcl Er 37.5 Mg Cap.Er.24h PO 37.5 mg DAILY NEERAJ Administration Allergies Allergies Allergy/AdvReac Type Severity Reaction Status Date / Time ciprofloxacin Allergy rash Verified 10/25/20 06:38 nitrofurantoin Allergy rash Verified 10/25/20 06:38 [From Macrobid] Sulfa (Sulfonamide Allergy rash Verified 10/25/20 06:38 Antibiotics) quetiapine [From Seroquel] AdvReac suicidal Verified 10/25/20 06:38 ideation Assessment & Plan Assessment & Plan (1) MDD (major depressive disorder), recurrent severe, without psychosis: Status: Acute Code(s): F33.2 - Major depressive disorder, recurrent severe without psychotic features Assessment and Plan: 1. continue venlafaxine 112.5mg po daily 2. continue abilify 5mg po daily (2) NIURKA (generalized anxiety disorder): Status: Acute Code(s): F41.1 - Generalized anxiety disorder Assessment and Plan: 1. decrease clonidine to 0.1mg po qhs on 11/01/2020 2. Continue clonazepam from 0.5mg po daily and 1mg po qhs. Greater than 50% of the session was spent on counseling and/or coordination of care
[2020-11-01 18:00] VITALS: BP 112/77; PULSE 75; TEMP 36.6
[2020-11-01 21:32] VITALS: BP 112/77; PULSE 75
[2020-11-01] MEDS: clonazePAM 1 MG TABLET PO (21:33)
[2020-11-02 06:00] VITALS: BP 115/59; PULSE 62; RESP 18; TEMP 36.8; O2SAT 95
[2020-11-02] MEDS: Venlafaxine HCl ER 75 MG CAP.ER.24H PO (08:28)
[2020-11-02] MEDS: clonazePAM 0.5 MG TABLET PO (08:28)
[2020-11-02] MEDS: ARIPiprazole 5 MG TABLET PO (08:29)
[2020-11-02] MEDS: Omeprazole 40 MG CAPSULE.DR PO (08:29)
[2020-11-02] MEDS: Venlafaxine HCl ER 37.5 MG CAP.ER.24H PO (08:29)
[2020-11-02] MEDS: Simethicone 80 MG TAB.CHEW PO ×3 (08:52→17:13)
--- NOTE | 2020-11-02 12:49 | P.PNPSI_ITS ---
Subjective Subjective Date of Service: 11/02/20 Reason For Visit: MAJOR DEPRESSION,NIURKA Interim History: Pt reports decreased symptoms of depression, less anxious mood. She reports less intrusive thoughts of fatalistic somatic concerns. She reports last night she felt asleep but woke up few times. She denies SI/HI. She reports feeling less tired with lowered dose of clonidine without increasing her anxiety. She reports feeling more hopeful about her future. Review of Systems Review of Systems Yes all other systems are reviewed and are negative Reports Abnormal speech present, Reports behavioral changes and Reports memory l oss Psychiatric: Reports behavioral changes and Reports memory loss Mental Status Exam Mental Status Exam Narrative: Appearance: casually groomed, fair hygiene, less uncomfortable with flatulence Behavior: cooperative Psychomotor: some restlessness Speech: clear, normal rate/rhythm, spontaneous TP: tangential TC: no signs of psychosis, more future oriented, less somatic concerns Mood: okay Affect: congruent Ah/VH: none Insight/judgment:fair x 2. Memory/cog: alert, oriented x 3. grossly intact to conversational testing. Patient Appearance: Appropriate Diagnostics Vital Signs (24Hr): Vital Signs - 24 hr 11/01/20 18:00 11/01/20 21:32 11/02/20 06:00 Temperature 98 F 98.2 F Pulse Rate 75 75 62 Respiratory Rate 18 Blood Pressure 112/77 112/77 115/59 L Pulse Oximetry 95 Body Mass Index 40.6 Labs Results: 10/25/20 07:09 10/25/20 07:09 Medications Medications Current Medications Generic Name Dose Route Start Last Admin Trade Name Freq PRN Reason Stop Dose Admin Acetaminophen 650 mg 10/25/20 20:25 10/26/20 12:06 Acetaminophen 325 Mg Tablet PO 650 mg Q6H PRN Administration Headache/Pain Mild Scale (1-3) Al Hydroxide/Mg Hydroxide 30 ml 10/25/20 20:25 10/30/20 21:17 Magnesium Hydrox/Alum Hydrox 30 Ml Oral.Susp PO 30 ml Q6H PRN Administration Heartburn/Nausea Aripiprazole 5 mg 10/31/20 09:00 11/02/20 08:29 Aripiprazole 5 Mg Tablet PO 5 mg DAILY NEERAJ Administration Clonazepam 0.5 mg 10/31/20 09:00 11/02/20 08:28 Clonazepam 0.5 Mg Tablet PO 0.5 mg DAILY NEERAJ Administration Clonazepam 1 mg 10/30/20 21:00 11/01/20 21:33 Clonazepam 1 Mg Tablet PO 1 mg BEDTIME NEERAJ Administration Clonidine HCl 0.1 mg 11/01/20 21:00 11/01/20 21:32 Clonidine Hcl 0.1 Mg Tablet PO 0.1 mg BEDTIME NEERAJ Administration Protocol Hydroxyzine HCl 50 mg 10/28/20 13:47 10/31/20 14:55 Hydroxyzine Hcl 50 Mg Tablet PO 50 mg Q6H PRN Administration anxiety/sleep Magnesium Hydroxide 30 ml 10/25/20 20:25 10/27/20 09:56 Milk Of Magnesia 30 Ml Oral.Susp PO 30 ml DAILY PRN Administration Constipation Melatonin 6 mg 10/31/20 15:14 11/01/20 22:44 Melatonin 3 Mg Tablet PO 6 mg BEDTIME PRN Administration Sleep Omeprazole 40 mg 10/26/20 09:00 11/02/20 08:29 Omeprazole 40 Mg Capsule.Dr PO 40 mg DAILY NEERAJ Administration Simethicone 80 mg 10/27/20 08:00 11/02/20 08:52 Simethicone 80 Mg Tab.Chew PO 80 mg TIDWM NEERAJ Administration Venlafaxine HCl 75 mg 10/27/20 09:00 11/02/20 08:28 Venlafaxine Hcl Er 75 Mg Cap.Er.24h PO 75 mg DAILY NEERAJ Administration Venlafaxine HCl 37.5 mg 10/27/20 09:00 11/02/20 08:29 Venlafaxine Hcl Er 37.5 Mg Cap.Er.24h PO 37.5 mg DAILY NEERAJ Administration Allergies Allergies Allergy/AdvReac Type Severity Reaction Status Date / Time ciprofloxacin Allergy rash Verified 10/25/20 06:38 nitrofurantoin Allergy rash Verified 10/25/20 06:38 [From Macrobid] Sulfa (Sulfonamide Allergy rash Verified 10/25/20 06:38 Antibiotics) quetiapine [From Seroquel] AdvReac suicidal Verified 10/25/20 06:38 ideation Assessment & Plan Assessment & Plan (1) MDD (major depressive disorder), recurrent severe, without psychosis: Status: Acute Code(s): F33.2 - Major depressive disorder, recurrent severe without psychotic features Assessment and Plan: 1. INcrease venlafaxine 150mg po daily on 11/03/2020 2. continue abilify 5mg po daily (2) NIURKA (generalized anxiety disorder): Status: Acute Code(s): F41.1 - Generalized anxiety disorder Assessment and Plan: 1. decrease clonidine to 0.1mg po qhs on 11/01/2020 2. Continue clonazepam from 0.5mg po daily and 1mg po qhs. Greater than 50% of the session was spent on counseling and/or coordination of care
[2020-11-02 16:25] VITALS: BP 141/76; PULSE 79; TEMP 36.9
[2020-11-02 21:17] VITALS: BP 143/63; PULSE 70
[2020-11-02] MEDS: cloNIDine HCL 0.1 MG TABLET PO (21:17)
[2020-11-02] MEDS: clonazePAM 1 MG TABLET PO (21:17)
[2020-11-02] MEDS: hydrOXYzine HCL 50 MG TABLET PO (23:19)
[2020-11-03] MEDS: Melatonin 3 MG TABLET 6 MG PO (01:19)
[2020-11-03 06:00] VITALS: BP 112/55; PULSE 67; RESP 18; TEMP 36.1; O2SAT 96
[2020-11-03] MEDS: Simethicone 80 MG TAB.CHEW PO ×3 (09:12→17:52)
[2020-11-03] MEDS: ARIPiprazole 5 MG TABLET PO (09:12)
[2020-11-03] MEDS: Venlafaxine HCl ER 150 MG CAP.ER.24H PO (09:12)
[2020-11-03] MEDS: clonazePAM 0.5 MG TABLET PO (09:13)
[2020-11-03] MEDS: Omeprazole 40 MG CAPSULE.DR PO (09:13)
--- NOTE | 2020-11-03 12:55 | HO.PSYCHPN ---
Subjective Subjective Date of Service: 11/03/20 Reason For Visit: MAJOR DEPRESSION,NIURKA Interim History: Pt reports feeling much less depressed, more hopeful about her future. She reports less intrusive thoughts of somatic concerns and fatalistic ideas. She reports eating and sleeping better. She has been visible in the unit. She attends assigned groups. She is social with select peers. No behavioral concerns. Pt ready for discharge tomorrow. Review of Systems Review of Systems Yes all other systems are reviewed and are negative Reports Abnormal speech present, Reports behavioral changes and Reports memory loss Psychiatric: Reports behavioral changes and Reports memory loss Mental Status Exam Mental Status Exam Narrative: Appearance: casually groomed, fair hygiene, less uncomfortable with flatulence Behavior: cooperative Psychomotor: some restlessness Speech: clear, normal rate/rhythm, spontaneous TP: tangential TC: no signs of psychosis, more future oriented, less somatic concerns Mood: okay Affect: congruent Ah/VH: none Insight/judgment:fair x 2. Memory/cog: alert, oriented x 3. grossly intact to conversational testing. Patient Appearance: Appropriate Patient Orientation: Person, Place, Time and Situation Level of Consciousness: Awake and Alert Patient Behavior: Appropriate and Anxious Mood Description: Depressed and Anxious Affect Description: Flat Patient Cognition Impaired: No Ability to Follow Directions: Good Speech Pattern: Spontaneous Speech Memory Description: Intact Diagnostics Vital Signs (24Hr): Vital Signs - 24 hr 11/02/20 16:25 11/02/20 21:17 11/03/20 06:00 Temperature 98.5 F 97.0 F Pulse Rate 79 70 67 Respiratory Rate 18 Blood Pressure 141/76 H 143/63 H 112/55 L Pulse Oximetry 96 Body Mass Index 40.6 Labs Results: 10/25/20 07:09 10/25/20 07:09 Medications Medications Current Medications Generic Name Dose Route Start Last Admin Trade Name Freq PRN Reason Stop Dose Admin Acetaminophen 650 mg 10/25/20 20:25 10/26/20 12:06 Acetaminophen 325 Mg Tablet PO 650 mg Q6H PRN Administration Headache/Pain Mild Scale (1-3) Al Hydroxide/Mg Hydroxide 30 ml 10/25/20 20:25 10/30/20 21:17 Magnesium Hydrox/Alum Hydrox 30 Ml Oral.Susp PO 30 ml Q6H PRN Administration Heartburn/Nausea Aripiprazole 5 mg 10/31/20 09:00 11/03/20 09:12 Aripiprazole 5 Mg Tablet PO 5 mg DAILY NEERAJ Administration Clonazepam 0.5 mg 10/31/20 09:00 11/03/20 09:13 Clonazepam 0.5 Mg Tablet PO 0.5 mg DAILY NEERAJ Administration Clonazepam 1 mg 10/30/20 21:00 11/02/20 21:17 Clonazepam 1 Mg Tablet PO 1 mg BEDTIME NEERAJ Administration Clonidine HCl 0.1 mg 11/01/20 21:00 11/02/20 21:17 Clonidine Hcl 0.1 Mg Tablet PO 0.1 mg BEDTIME NEERAJ Administration Protocol Hydroxyzine HCl 50 mg 10/28/20 13:47 11/02/20 23:19 Hydroxyzine Hcl 50 Mg Tablet PO 50 mg Q6H PRN Administration anxiety/sleep Magnesium Hydroxide 30 ml 10/25/20 20:25 10/27/20 09:56 Milk Of Magnesia 30 Ml Oral.Susp PO 30 ml DAILY PRN Administration Constipation Melatonin 6 mg 10/31/20 15:14 11/03/20 01:19 Melatonin 3 Mg Tablet PO 6 mg BEDTIME PRN Administration Sleep Omeprazole 40 mg 10/26/20 09:00 11/03/20 09:13 Omeprazole 40 Mg Capsule.Dr PO 40 mg DAILY NEERAJ Administration Simethicone 80 mg 10/27/20 08:00 11/03/20 12:53 Simethicone 80 Mg Tab.Chew PO 80 mg TIDWM NEERAJ Administration Venlafaxine HCl 150 mg 11/03/20 09:00 11/03/20 09:12 Venlafaxine Hcl Er 150 Mg Cap.Er.24h PO 150 mg DAILY NEERAJ Administration Allergies Allergies Allergy/AdvReac Type Severity Reaction Status Date / Time ciprofloxacin Allergy rash Verified 10/25/20 06:38 nitrofurantoin Allergy rash Verified 10/25/20 06:38 [From Macrobid] Sulfa (Sulfonamide Allergy rash Verified 10/25/20 06:38 Antibiotics) quetiapine [From Seroquel] AdvReac suicidal Verified 10/25/20 06:38 ideation Assessment & Plan Assessment & Plan (1) MDD (major depressive disorder), recurrent severe, without psychosis: Status: Acute Code(s): F33.2 - Major depressive disorder, recurrent severe without psychotic features Assessment and Plan: 1. venlafaxine 150mg po daily on 11/03/2020 2. continue abilify 5mg po daily (2) NIURKA (generalized anxiety disorder): Status: Acute Code(s): F41.1 - Generalized anxiety disorder Assessment and Plan: 1. decrease clonidine to 0.1mg po qhs on 11/01/2020 2. Continue clonazepam from 0.5mg po daily and 1mg po qhs. Greater than 50% of the session was spent on counseling and/or coordination of care
[2020-11-03 18:00] VITALS: BP 128/74; PULSE 80; TEMP 36.8
[2020-11-03 20:41] VITALS: BP 128/74; PULSE 80
[2020-11-03] MEDS: clonazePAM 1 MG TABLET PO (20:41)
[2020-11-03] MEDS: cloNIDine HCL 0.1 MG TABLET PO (20:41)
[2020-11-04 06:50] VITALS: BP 110/53; PULSE 67; RESP 18; TEMP 37; O2SAT 96
[2020-11-04] MEDS: Simethicone 80 MG TAB.CHEW PO (08:43)
[2020-11-04] MEDS: Omeprazole 40 MG CAPSULE.DR PO (08:43)
[2020-11-04] MEDS: ARIPiprazole 5 MG TABLET PO (08:44)
[2020-11-04] MEDS: Venlafaxine HCl ER 150 MG CAP.ER.24H PO (08:44)
[2020-11-04] MEDS: clonazePAM 0.5 MG TABLET PO (08:44)
--- NOTE | 2020-11-04 12:02 | P.DS_ITS ---
DS: Providers Provider Date of Service: 11/05/20 Date of admission: 10/25/20 20:25 Primary care physician: Meghna Parson MD DS: Diagnosis Discharge Diagnosis (1) MDD (major depressive disorder), recurrent severe, without psychosis: Status: Acute (2) INURKA (generalized anxiety disorder): Status: Acute DS: Medications Discharge Medications Home Medications: Home Medications Medication Instructions Recorded Confirmed clonazepam [Klonopin] 0.5 mg PO TID 10/25/20 10/25/20 clonidine HCl 0.1 mg PO TID 10/25/20 10/25/20 omeprazole 40 mg PO DAILY 10/25/20 10/25/20 venlafaxine [Effexor XR] 75 mg PO DAILY 10/25/20 10/25/20 Previous Rx's Medication Instructions Recorded clonazepam 0.5 mg PO DAILY 30 Days #30 tab 11/04/20 clonazepam 1 mg PO BEDTIME 30 Days #30 tab 11/04/20 Discharge Plan Discharge Patient Disposition: Home, Self-Care Referrals: PHP Intake [Other] - 11/07/20 8:00 am Xuan Blanton MD [Physician] - 11/15/20 11:00 am (Telehealth) Meghna Parson MD [Primary Care Provider] - 11/07/20 11:30 am (VIA VIDEO OR PHONE . ) Discharge Medications: New clonidine HCl 0.1 mg Tablet 0.1 mg PO BEDTIME 30 Days Qty: 30 RF: 0 clonazepam 0.5 mg Tablet 0.5 mg PO DAILY 30 Days Qty: 30 RF: 0 clonazepam 1 mg Tablet 1 mg PO BEDTIME 30 Days Qty: 30 RF: 0 venlafaxine 150 mg Capsule,Extended Release 24hr 150 mg PO DAILY 30 Days Qty: 30 RF: 0 hydroxyzine HCl 50 mg Tablet 50 mg PO Q6H PRN (Reason: anxiety/sleep) 15 Days Qty: 30 RF: 0 melatonin 3 mg Tablet 6 mg PO BEDTIME PRN (Reason: Sleep) 30 Days Qty: 30 RF: 0 omeprazole 40 mg Capsule,Delayed Release(Dr/Ec) 40 mg PO DAILY 30 Days Qty: 30 RF: 0 simethicone [Gas Relief (simethicone)] 80 mg Tablet,Chewable 80 mg PO TIDWM 30 Days Qty: 90 RF: 0 aripiprazole [Abilify] 5 mg Tablet 5 mg PO DAILY 30 Days Qty: 30 RF: 0 Discontinued clonidine HCl 0.1 mg Tablet 0.1 mg PO TID RF: 0 venlafaxine [Effexor XR] 75 mg Capsule,Extended Release 24hr 75 mg PO DAILY RF: 0 clonazepam [Klonopin] 0.5 mg Tablet 0.5 mg PO TID RF: 0 omeprazole 40 mg Capsule,Delayed Release(Dr/Ec) 40 mg PO DAILY RF: 0 Discharge Orders: Discharge Order (Routine); Ordered 11/04/20 Ordered By: Swapna Magaña Activity on Discharge: As tolerated Stand Alone Forms: Patient Portal Discharge page Discharge Date/Time: 11/04/20 13:15 Visit Report Forms: Patient Portal Discharge page Care Plan Goals: 1. follow up with referrals 2. take medications as prescribed Health Concerns: 1. Follow up with PCP Plan of Treatment: 1. continue medications as prescribed. Mental Status Exam Mental Status Exam Narrative: Appearance: casually groomed, fair hygiene, less uncomfortable with flatulence Behavior: cooperative Psychomotor: some restlessness Speech: clear, normal rate/rhythm, spontaneous TP: tangential TC: no signs of psychosis, more future oriented, less somatic concerns Mood: okay Affect: congruent Ah/VH: none Insight/judgment:fair x 2. Memory/cog: alert, oriented x 3. grossly intact to conversational testing. Patient Appearance: Appropriate Patient Orientation: Person, Place, Time and Situation Level of Consciousness: Awake and Alert Patient Behavior: Appropriate and Anxious Mood Description: Depressed and Anxious Affect Description: Flat Patient Cognition Impaired: No Ability to Follow Directions: Good Speech Pattern: Spontaneous Speech Memory Description: Intact Data Data Completed and Pending Completed studies during hospitalization [Text1]: CBC, CMP, TSH, Lipid panel, A1C, folate, B12 Imaging None DS: Summary Hospital Course Hospital Course: [address] [address] Psychiatry Admission Note (In)Signed Patient: Germania LuzMR#: [id number]: 1965Acct:[id number]/Sex: 55 / FADM Date: 10/25/20Loc:[id number]: Orlando Martin MD cc: ~ HPI Chief Complaint: MAJOR DEPRESSION,NIURKA Sources of Information: patient interviewed, chart reviewed and crisis/core team assessment reviewed HPI Narrative: Ms. Luz is a 55 year-old woman with hx of MDD/NIURKA who self presented to [facility] due to increased anxiety, depressed mood, intrusive/ruminations about somatic concerns. 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 She reports this job was very stressful. It appears that pt began to have somewhat unrealistic fear of harming a patient or having a patient code and not being able to respond appropriately. However, she reports she never had any incident with any of her patients. She also reports that she began checking her own BP incessantly during the day and although slightly elevated but fear her life was at risk. She reports worrying about her financial situation if she can't return to her job or find a new one less stressful. She reports fair sleep. She reports episodes of chest tightness, itchiness on back of neck when feeling anxious. She also has a number of GI complaints and states she has seen GI specialist who gave her carafe. She reports anxious mood has significantly increased to the point that she feels paralyzed. This has trigger symptoms of depression as patient reports feeling increasingly more helpless/hopeless about recovering from severe anxious mood and psychosomatic components. Pt reports she was started on Venlafaxine in August 37.5mg, increased to 75mg po daily begining of September 2020. Pt reports partial response. Past Psychiatric History: Inpatient admission: last inpt 17 years ago, episode of anxiety/depressio n/nightmares, feeling like bugs coming out of her mouth. OP: Pt sees Dr. Xuan Blanton MD; Anny Argueta [facility] ([phone]) Suicide attempts:none Past medication trials: prozac, wellbutrin, lithium, gabapentin, clonidine, effexor, gabapentin, clonazepam. HOSPITAL COURSE: On the unit, Ms. Luz presented as anxious, blunted affect, intrusive thoughts of catastrophic events of medical nature. She thought she was going to for medical conditions she was not aware of, that she was going to inadvertently kill one of her patients as an RN. She reported increased anxious mood, in termittent suicidal ideation, poor sleep, poor appetite, feeling of worthlessness. She denied any plan or intent to hurt herself. She reported a similar episode more than 10 years ago when she had last inpatient admission. She denied hx of suicide attempts. After reviewing risks, benefits and alternative treatment options, she agreed to increased venlafaxine, which she reported some improvement in mood once it was started. She was on Venlafaxine 75mg po daily, which was gradually increased to 150mg po daily. She was also started on abilify to help with intrusive thoughts/rumination and boost effect of antidepressant. She was initially continued on clonidine 0.1mg po TID and clonazepam 0.5mg po TID. As patient reported decreased symptoms of anxiety and depression, she also reported feeling increasingly sedated. Therefore, clonidine was gradually decreased to 0.1mg po QHS. Clonazepam was switched to 0.5mg po daily and 1mg po qhs. Addition of melatonin for sleep was very helpful. She did use hydroxyzine as needed for anxiety, which she reported helpful. Ms. Luz gradually reported decreased symptoms of depression, less intrusive thoughts, and denied suicidal ideation. Her affect appeared brighter and she was increasingly more visible in the unit. She reported improved sleep/appetite. There were no incidences of disruptive behaviors nor use of restraints. Collateral information gathered from sister who denied any safety concerns and reported improved mood. Time Spent with Patient Time attestation: Total time spent providing and/or coordinating discharge services:
== END 2020-11-04 13:15 | disposition home or self-care (01) | DRG 885 ==
LOC: HO.ED 20:07 → HO.PM5 20:32
PROVIDERS: Clinical Nurse Specialist Psychiatric/Mental Health, Adult; Admitting Provider Psychiatry & Neurology Psychiatry; Emergency Provider Emergency Medicine Emergency Medical Services; PCP Internal Medicine; Visit Provider Social Worker
DX: F33.2 Major depressive disorder, recurrent severe without psychotic features (principal); D83.9 Common variable immunodeficiency, unspecified; F43.10 Post-traumatic stress disorder, unspecified; Z20.828 Contact with and (suspected) exposure to other viral communicable diseases; Z88.2 Allergy status to sulfonamides; K21.9 Gastro-esophageal reflux disease without esophagitis; Z79.899 Other long term (current) drug therapy
CPT/HCPCS: 0241U; 36415; 80053; 80061; 80307; 80320; 81003; 82607; 82746; 83036; 83735; 84439; 84443; 84484; 85025; 93005; 99222; 99232; 99239; 99285

== ENCOUNTER 2020-11-24 08:15 | Outpatient (RCR) | payer OTHER, SELFPAY ==
[2020-11-07 15:24] VITALS: BMI 41.5
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
--- NOTE | 2020-11-15 10:20 | PC.NURSE ---
I called and spoke with staff (Meghna) at [facility], asking about referral process for a CSP. I was informed that because pt has private insurance, there is a year long wait list to obtain a CSP.
--- NOTE | 2020-11-15 10:26 | PC.NURSE ---
I called [facility] in [place] ([phone]) and LM asking for a call back, inquiring about if [facility] might be of use to pt. She was hesitant when I spoke to her about it, and initially declined a referral. I told her I'd call for clarification around whether they might help. I did not give pt's personal info.
--- NOTE | 2020-11-16 14:08 | HO.PHPPROGNO ---
Subjective Subjective Date of Service: 11/16/20 Reason For Visit: depression Interim History: Pt overall feels much less depressed, less anxious. She denied suicidal ideation since she was discharged from hospital. She reports sleep is fair, sometimes wakes up early and unable to go back to sleep. Although she has also noted that drinking caffeineted beverages do affect quality of sleep. She does report one incidence last weekend of intrusive thoughts after she saw an exboyfriend, hearing the word whore. She states these went away. Medication Compliance: Yes Side effects from medications: No Attending Groups: Yes Review of Systems Cardiovascular: Reports no additional cardiovascular complaints Gastrointestinal: Reports no additional gastrointestinal complaints Genitourinary: Reports no additional female genitourinary complaints Musculoskeletal: Reports no additional musculoskeletal complaints Mental Status Exam Mental Status Exam Patient Appearance: Appropriate Patient Orientation: Person, Place, Time and Situation Level of Consciousness: Alert Patient Behavior: Talkative and Anxious Mood Description: Depressed and Anxious Affect Description: Anxious Patient Cognition Impaired: No Ability to Follow Directions: Good Speech Pattern: Spontaneous Speech Memory Description: Intact Diagnostics Vital Signs (24Hr): Body Mass Index 41.5 Assessment & Plan Assessment & Plan (1) NIURKA (generalized anxiety disorder): Status: Acute Code(s): F41.1 - Generalized anxiety disorder Assessment and Plan: 1. no changes in medications at this time. (2) MDD (major depressive disorder), recurrent severe, without psychosis: Status: Acute Code(s): F33.2 - Major depressive disorder, recurrent severe without psychotic features Assessment and Plan: 1. no changes in medications at this time. Certification I certify that partial hospital treatment is medically necessary due to the symptoms and problems resulting from the patient's mental illness and the failure to treat the patient at the partial hospital level of care would likely result in the patient requiring inpatient psychiatric care which could not be prevented at a less intensive level of care. Greater than 50% of the session was spent on counseling and/or coordination of care Discharge Plan Discharge Attending provider: Orlando Martin Medications: No Action clonidine HCl 0.1 mg Tablet 0.1 mg PO BEDTIME 30 Days Qty: 30 RF: 0 clonazepam 0.5 mg Tablet 0.5 mg PO DAILY 30 Days Qty: 30 RF: 0 clonazepam 1 mg Tablet 1 mg PO BEDTIME 30 Days Qty: 30 RF: 0 venlafaxine 150 mg Capsule,Extended Release 24hr 150 mg PO DAILY 30 Days Qty: 30 RF: 0 hydroxyzine HCl 50 mg Tablet 50 mg PO Q6H PRN (Reason: anxiety/sleep) 15 Days Qty: 30 RF: 0 melatonin 3 mg Tablet 6 mg PO BEDTIME PRN (Reason: Sleep) 30 Days Qty: 30 RF: 0 omeprazole 40 mg Capsule,Delayed Release(Dr/Ec) 40 mg PO DAILY 30 Days Qty: 30 RF: 0 simethicone [Gas Relief (simethicone)] 80 mg Tablet,Chewable 80 mg PO TIDWM 30 Days Qty: 90 RF: 0 aripiprazole [Abilify] 5 mg Tablet 5 mg PO DAILY 30 Days Qty: 30 RF: 0 Telehealth Telehealth Location of provider rendering services: practice address Location of patient: address on file Patient Identification confirmed using: Name, : Yes Telehealth method: video Patient verbally consented to treatment: Yes Patient verbally consented to billing insurance company: Yes Patient informed of any privacy concerns related to visit: Yes Time spent with patient (mins): 15
--- NOTE | 2020-11-24 15:41 | PC.NURSE ---
I called and LM for pt's therapist, Dr. Jacki Argueta . I gave a clinical update and informed her about pt's discharge today from [facility].
--- NOTE | 2020-11-24 16:54 | P.PNPSP_ITS ---
Subjective Subjective Date of Service: 11/24/20 Reason For Visit: depression Interim History: Today is pt's last day of PHP. She reports her in patient admission and PHP were very helpful. She denies current symptoms of depression or side effects from medication. She does not believe her regime needs adjustments. Her out patient provider will be sending in refills. She will call if there is any problem with this and we will refill. Sleep is improving, approximately five hours per night, appetite is normal. She denies substance use. She denies SI, plan or intent. I feel more hope. Medically her PCP is working with Lisinopril dosage as BP has been variable (low) and currently she is at 5 mg Medication Compliance: Yes Side effects from medications: No Attending Groups: Yes Review of Systems Cardiovascular: Reports other (lowered bp-working with PCP on Lisinopril dosages) Mental Status Exam Mental Status Exam Patient Appearance: Appropriate Patient Orientation: Person, Place, Time and Situation Level of Consciousness: Awake and Alert Patient Behavior: Appropriate Mood Description: Calm Affect Description: Calm Patient Cognition Impaired: No Ability to Follow Directions: Good Speech Pattern: Clear and Spontaneous Speech Memory Description: Intact Hallucinations: None Delusions: Not Present Thought Process: Intact Thought Content: positive for Intact Depressive Symptoms: Diff. Making Decisions Judgement: Good Diagnostics Vital Signs (24Hr): Body Mass Index 41.5 Assessment & Plan Assessment & Plan (1) MDD (major depressive disorder), recurrent severe, without psychosis: Status: Acute Code(s): F33.2 - Major depressive disorder, recurrent severe without psychotic features Assessment and Plan: -Continue current regime (2) NIURKA (generalized anxiety disorder): Status: Acute Code(s): F41.1 - Generalized anxiety disorder Certification I certify that partial hospital treatment is medically necessary due to the symptoms and problems resulting from the patient's mental illness and the failure to treat the patient at the partial hospital level of care would likely result in the patient requiring inpatient psychiatric care which could not be prevented at a less intensive level of care. Greater than 50% of the session was spent on counseling and/or coordination of care Discharge Plan Discharge Attending provider: Orlando Martin Additional Instructions: Appt with Dr. Jacki Argueta on 08/27/21, at 10:30am. Appt with Dr. Xuan Andrew on 12/14/20, at 9:30am. Also resources were given for [facility] and [facility] [facility], and other support groups at [employer], and [facility] ([email or web address]). Medications: No Action clonidine HCl 0.1 mg Tablet 0.1 mg PO BEDTIME 30 Days Qty: 30 RF: 0 clonazepam 0.5 mg Tablet 0.5 mg PO DAILY 30 Days Qty: 30 RF: 0 clonazepam 1 mg Tablet 1 mg PO BEDTIME 30 Days Qty: 30 RF: 0 venlafaxine 150 mg Capsule,Extended Release 24hr 150 mg PO DAILY 30 Days Qty: 30 RF: 0 hydroxyzine HCl 50 mg Tablet 50 mg PO Q6H PRN (Reason: anxiety/sleep) 15 Days Qty: 30 RF: 0 melatonin 3 mg Tablet 6 mg PO BEDTIME PRN (Reason: Sleep) 30 Days Qty: 30 RF: 0 omeprazole 40 mg Capsule,Delayed Release(Dr/Ec) 40 mg PO DAILY 30 Days Qty: 30 RF: 0 simethicone [Gas Relief (simethicone)] 80 mg Tablet,Chewable 80 mg PO TIDWM 30 Days Qty: 90 RF: 0 aripiprazole [Abilify] 5 mg Tablet 5 mg PO DAILY 30 Days Qty: 30 RF: 0 Telehealth Telehealth Location of provider rendering services: practice address Location of patient: address on file Patient Identification confirmed using: Name, : Yes Telehealth method: video Patient verbally consented to treatment: Yes Patient verbally consented to billing insurance company: Yes Patient informed of any privacy concerns related to visit: Yes Time spent with patient (mins): 15
== END 2020-11-24 23:55 | disposition home or self-care (01) ==
LOC: HO.PHPA 08:15
PROVIDERS: Visit Provider Psychiatry & Neurology Psychiatry
DX: F33.2 Major depressive disorder, recurrent severe without psychotic features (principal); F41.1 Generalized anxiety disorder; Z79.899 Other long term (current) drug therapy
CPT/HCPCS: 90791; 90853

== ENCOUNTER 2021-02-22 12:10 | Inpatient (IN) | payer OTHER, MEDICAID, SELFPAY ==
--- NOTE | 2021-02-22 | ECG_ITS ---
Test Reason : MEDICAL CLEAR Blood Pressure : / mmHG Vent. Rate : 071 BPM Atrial Rate : 071 BPM P-R Int : 154 ms QRS Dur : 078 ms QT Int : 378 ms P-R-T Axes : 043 031 050 degrees QTc Int : 410 ms Normal sinus rhythm Normal ECG When compared with ECG of 25-OCT-2020 07:21, No significant change was found Referred By: Luli Ribera Electronically Signed By:DEVIN OMER MD
[2021-02-22 12:16] VITALS: BP 159/76; BP 162/94; PULSE 76; PULSE 80; RESP 18; TEMP 36.5; O2SAT 97; O2SAT 98; BMI 43.9
[2021-02-22 13:04] LABS: UPreg QC Valid YES; Urine Pregnancy NEGATIVE (NEGATIVE)
[2021-02-22 13:15] LABS: Amphetamine Screen Urine Not Detected (Not Detect); Barbiturates, Urine Not Detected (Not Detect); Benzodiazepines Screen Urine Not Detected (Not Detect); Cannabinoid Screen Urine Not Detected (Not Detect); Cocaine Screen Urine Not Detected (Not Detect); Opiate Screen Urine Not Detected (Not Detect); Phencyclidine Screen Urine Not Detected (Not Detect)
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
[2021-02-22 14:12] LABS: MANUAL DIFF FLAG NO
[2021-02-22 14:22] LABS: Basophils Percent Auto 0.3 % (0-2); Eosinophils Absolute Auto 0.1 X10*3/uL (0.0-0.4); Eosinophils Percent Auto 1.2 % (0-4); Hematocrit 44.8 % (37-47); Hemoglobin 14.9 g/dl (12.0-16.0); Imm Gran Abs Auto 0.03 X10*3/uL (0.00-0.03); Imm Gran Pct Auto 0.5 % (0.0-0.4); Lymphocytes Absolute Auto 1.8 X10*3/uL (1.2-4.9); Lymphocytes Percent Auto 26.9 % (20-40); Mean Corpuscular HGB Conc 33.3 g/dl (31.0-35.0); Mean Corpuscular Hemoglobin 30.3 pg (27.0-33.0); Mean Corpuscular Volume 91.2 fL (80-98); Mean Platelet Volume 9.3 fL (9.4-12.3); Monocytes Absolute Auto 0.5 X10*3/uL (0.1-1.2); Monocytes Percent Auto 6.8 % (2-11); Neutrophils Absolute Auto 4.2 X10*3/uL (2.0-8.3); Neutrophils Percent Auto 64.3 % (45-73); Platelet Count 264 X10*3/uL (160-400); Red Blood Count 4.91 X10*6/uL (4.20-5.50); Red Cell Distribution Width 12.8 % (11.0-16.0); White Blood Count 6.6 X10*3/uL (4.8-10.8)
[2021-02-22 14:44] LABS: Ethanol < 10 mg/dL
[2021-02-22 14:47] LABS: Alanine Aminotransferase 10 U/L (0-31); Albumin Level 4.1 g/dL (3.5-5.0); Alkaline Phosphatase 87 U/L (39-117); Anion Gap 11 (12-20); Aspartate Amino Transferase 20 U/L (5-31); Bilirubin Total 0.4 mg/dL (0.0-1.0); Blood Urea Nitrogen 11 mg/dL (9-16); Calcium 9.8 mg/dL (8.4-10.2); Carbon Dioxide 30 mmol/L (22-29); Chloride 105 mmol/L (96-108); Creatinine Clr Calc Pharmacy 92.3; Estimated Glomerular Filt Rate > 60; Glucose Random 87 mg/dL (60-115); Potassium 4.4 mmol/L (3.3-5.1); Sodium 142 mmol/L (135-145); Total Protein 6.9 g/dL (6.5-8.0)
--- NOTE | 2021-02-22 15:01 | PC.NURSE ---
Report received. Pt resting comfortably in bed at current.
[2021-02-22] MEDS: clonazePAM 0.5 MG TABLET PO (15:04)
[2021-02-22 16:08] LABS: COVID-19 Test Negative (Negative); IDNOW Serial# 9DD0AD1C
--- NOTE | 2021-02-22 17:13 | PC.NURSE ---
Pt resting in bed comfortably, calm, no complaints at this time.
--- NOTE | 2021-02-22 19:11 | PC.NURSE ---
RN to RN report completed with M5, disposition pending M5 admission, patient resting in bed at this time, will continue to monitor.
[2021-02-22 20:40] VITALS: BP 146/76; PULSE 80; TEMP 36.4; O2SAT 98
[2021-02-22] MEDS: clonazePAM 1 MG TABLET PO (21:59)
[2021-02-22 22:00] VITALS: BP 129/87; PULSE 91
[2021-02-22] MEDS: cloNIDine HCL 0.1 MG TABLET PO (22:00)
[2021-02-23] MEDS: hydrOXYzine HCL 25 MG TABLET PO (01:30)
[2021-02-23] MEDS: Melatonin 3 MG TABLET 6 MG PO (01:30)
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
[2021-02-23 06:00] VITALS: BP 112/53; PULSE 68; RESP 18; TEMP 36.6; O2SAT 96
[2021-02-23 06:35] VITALS: BP 112/53; PULSE 84; RESP 18; TEMP 36.3; O2SAT 96
[2021-02-23 08:50] LABS: Cholesterol 254 mg/dL; HDL Cholesterol 67 mg/dL; LDL Cholesterol Calculated 161 mg/dl; Triglycerides 132 mg/dL
[2021-02-23 08:57] LABS: Thyroid Stimulating Hormone 1.45 uIU/mL (0.32-4.0)
[2021-02-23 09:24] LABS: Estimated Average Glucose 91 mg/dL; Hemoglobin A1c % 4.8 %
[2021-02-23] MEDS: Simethicone 80 MG TAB.CHEW PO ×2 (09:41→13:07)
[2021-02-23] MEDS: clonazePAM 1 MG TABLET PO ×2 (09:41→21:12)
[2021-02-23] MEDS: Venlafaxine HCl ER 75 MG CAP.ER.24H PO (09:41)
[2021-02-23] MEDS: ARIPiprazole 10 MG TABLET PO (09:41)
[2021-02-23] MEDS: Omeprazole 40 MG CAPSULE.DR PO (09:41)
[2021-02-23 09:42] VITALS: BP 132/63; PULSE 89
[2021-02-23] MEDS: cloNIDine HCL 0.1 MG TABLET PO ×2 (09:42→21:12)
[2021-02-23] MEDS: Venlafaxine HCl ER 150 MG CAP.ER.24H PO (09:42)
[2021-02-23] MEDS: Acetaminophen 325 MG TABLET 650 MG PO (13:07)
[2021-02-23 16:19] VITALS: BP 114/56; PULSE 82; TEMP 36.8
[2021-02-23 20:55] VITALS: BP 127/72; PULSE 77
[2021-02-23 21:12] VITALS: BP 127/72; PULSE 77
[2021-02-23] MEDS: Mirtazapine 7.5 MG TABLET PO (21:12)
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
[2021-02-24 06:20] VITALS: BP 124/58; PULSE 71; TEMP 36.8; O2SAT 95
[2021-02-24] MEDS: Omeprazole 40 MG CAPSULE.DR PO (06:23)
[2021-02-24] MEDS: Venlafaxine HCl ER 75 MG CAP.ER.24H PO (09:45)
[2021-02-24] MEDS: Venlafaxine HCl ER 150 MG CAP.ER.24H PO (09:46)
[2021-02-24] MEDS: clonazePAM 1 MG TABLET PO ×2 (09:46→21:17)
[2021-02-24 10:11] VITALS: BP 118/53; PULSE 78
[2021-02-24] MEDS: cloNIDine HCL 0.1 MG TABLET PO ×3 (10:11→21:17)
[2021-02-24] MEDS: Milk of Magnesia 30 ML ORAL.SUSP PO (10:12)
--- NOTE | 2021-02-24 10:17 | P.PNPSI_ITS ---
Subjective Subjective Date of Service: 02/24/21 Reason For Visit: SI Subjective Notes: Conditional Voluntary Interim History: pt felt somewhat better with mirtazapine depressed anxious some better perspective Medication Compliance: Yes Side effects from medications: Yes Attending Groups: Intermittent Mental Status Exam Mental Status Exam Patient Appearance: Well Grooomed Patient Orientation: Person, Place, Time and Situation Level of Consciousness: Awake and Appropriate Patient Behavior: Appropriate and Cooperative Mood Description: Depressed, Anxious and Apprehensive Affect Description: Depressed, Anxious, Nervous and Apprehensive Patient Cognition Impaired: No Ability to Follow Directions: Excellent Speech Pattern: Clear Memory Description: Intact Hallucinations: None Delusions: Not Present Thought Process: Rumination Thought Content: positive for Preoccupation, positive for Suicidal Ideation (Passive SI safe in this setting) and negative for Homicidal Ideation Depressive Symptoms: Increased Anxiety, Diff. Making Decisions, Loss of Int. in Activity and Hopelessness Judgement and Insight: Patient is asking for help became panicked and suicidal when unable to function at work Diagnostics Vital Signs (24Hr): Vital Signs - 24 hr 02/23/21 16:19 02/23/21 20:55 02/23/21 21:12 Temperature 98.3 F Pulse Rate 82 77 77 Blood Pressure 114/56 L 127/72 127/72 Pulse Oximetry 02/24/21 06:20 Temperature 98.3 F Pulse Rate 71 Blood Pressure 124/58 L Pulse Oximetry 95 Body Mass Index 43.9 Labs Results: 02/22/21 14:06 02/22/21 14:06 Labs: Laboratory Results - last 48 hr 02/22/21 02/22/21 02/22/21 12:45 12:45 14:06 WBC 6.6 RBC 4.91 Hgb 14.9 Hct 44.8 MCV 91.2 MCH 30.3 MCHC 33.3 RDW 12.8 Plt Count 264 MPV 9.3 L Immature Gran % (Auto) 0.5 H Neut % (Auto) 64.3 Lymph % (Auto) 26.9 Marin % (Auto) 6.8 Eos % (Auto) 1.2 Baso % (Auto) 0.3 Lymph # (Auto) 1.8 Marin # (Auto) 0.5 Eos # (Auto) 0.1 Baso # (Auto) 0.0 Abs Immat Gran (auto) 0.03 Absolute Neuts (auto) 4.2 Absolute Nucleated RBC 0.000 Nucleated RBC % (auto) 0.0 Sodium Potassium Chloride Carbon Dioxide Anion Gap BUN Creatinine Estim Creat Clear Calc Estimated GFR Random Glucose Estimat Average Glucose Hemoglobin A1c % Calcium Total Bilirubin AST ALT Alkaline Phosphatase Total Protein Albumin Triglycerides Cholesterol LDL Cholesterol, Calc HDL Cholesterol TSH Urine Test NEGATIVE Urine Opiates Screen Not Detected Ur Barbiturates Screen Not Detected Ur Phencyclidine Scrn Not Detected Ur Amphetamines Screen Not Detected U Benzodiazepines Scrn Not Detected Urine Cocaine Screen Not Detected U Marijuana (THC) Screen Not Detected Ethyl Alcohol COVID-19 ([facility]) COVID-19 Clin Com 02/22/21 02/22/21 02/22/21 14:06 14:06 15:34 WBC RBC Hgb Hct MCV MCH MCHC RDW Plt Count MPV Immature Gran % (Auto) Neut % (Auto) Lymph % (Auto) Marin % (Auto) Eos % (Auto) Baso % (Auto) Lymph # (Auto) Marin # (Auto) Eos # (Auto) Baso # (Auto) Abs Immat Gran (auto) Absolute Neuts (auto) Absolute Nucleated RBC Nucleated RBC % (auto) Sodium 142 Potassium 4.4 Chloride 105 Carbon Dioxide 30 H Anion Gap 11 L BUN 11 Creatinine 0.84 Estim Creat Clear Calc 92.3 Estimated GFR > 60 Random Glucose 87 Estimat Average Glucose Hemoglobin A1c % Calcium 9.8 Total Bilirubin 0.4 AST 20 ALT 10 Alkaline Phosphatase 87 Total Protein 6.9 Albumin 4.1 Triglycerides Cholesterol LDL Cholesterol, Calc HDL Cholesterol TSH Urine Test Urine Opiates Screen Ur Barbiturates Screen Ur Phencyclidine Scrn Ur Amphetamines Screen U Benzodiazepines Scrn Urine Cocaine Screen U Marijuana (THC) Screen Ethyl Alcohol < 10 COVID-19 ([facility]) Negative COVID-19 Clin Com See Note 02/23/21 02/23/21 07:56 07:56 WBC RBC Hgb Hct MCV MCH MCHC RDW Plt Count MPV Immature Gran % (Auto) Neut % (Auto) Lymph % (Auto) Marin % (Auto) Eos % (Auto) Baso % (Auto) Lymph # (Auto) Marin # (Auto) Eos # (Auto) Baso # (Auto) Abs Immat Gran (auto) Absolute Neuts (auto) Absolute Nucleated RBC Nucleated RBC % (auto) Sodium Potassium Chloride Carbon Dioxide Anion Gap BUN Creatinine Estim Creat Clear Calc Estimated GFR Random Glucose Estimat Average Glucose 91 Hemoglobin A1c % 4.8 Calcium Total Bilirubin AST ALT Alkaline Phosphatase Total Protein Albumin Triglycerides 132 Cholesterol 254 D LDL Cholesterol, Calc 161 HDL Cholesterol 67 TSH 1.45 Urine Test Urine Opiates Screen Ur Barbiturates Screen Ur Phencyclidine Scrn Ur Amphetamines Screen U Benzodiazepines Scrn Urine Cocaine Screen U Marijuana (THC) Screen Ethyl Alcohol COVID-19 ([facility]) COVID-19 Clin Com Medications Medications Current Medications Generic Name Dose Route Start Last Admin Trade Name Freq PRN Reason Stop Dose Admin Acetaminophen 650 mg 02/22/21 19:02 02/23/21 13:07 Acetaminophen 325 Mg Tablet PO 650 mg Q6H PRN Administration Headache/Pain Mild Scale (1-3) Al Hydroxide/Mg Hydroxide 30 ml 02/22/21 19:02 Magnesium Hydrox/Alum Hydrox 30 Ml Oral.Susp PO Q6H PRN Heartburn/Nausea Aripiprazole 10 mg 02/24/21 18:00 Aripiprazole 10 Mg Tablet PO DAILY@1800 [facility] Clonazepam 1 mg 02/22/21 21:00 02/24/21 09:46 Clonazepam 1 Mg Tablet PO 1 mg BID [facility] Administration Clonidine HCl 0.1 mg 02/22/21 21:00 02/23/21 21:12 Clonidine Hcl 0.1 Mg Tablet PO 0.1 mg TID [facility] Administration Protocol Hydroxyzine HCl 25 mg 02/22/21 19:02 02/23/21 01:30 Hydroxyzine Hcl 25 Mg Tablet PO 25 mg BEDTIME PRN Administration Anxiety Hydroxyzine HCl 50 mg 02/22/21 20:43 Hydroxyzine Hcl 50 Mg Tablet PO Q6H PRN anxiety/sleep Magnesium Hydroxide 30 ml 02/22/21 19:02 Milk Of Magnesia 30 Ml Oral.Susp PO DAILY PRN Constipation Melatonin 6 mg 02/22/21 20:43 02/23/21 01:30 Melatonin 3 Mg Tablet PO 6 mg BEDTIME PRN Administration Sleep Mirtazapine 7.5 mg 02/23/21 21:00 02/23/21 21:12 Mirtazapine 7.5 Mg Tablet PO 7.5 mg BEDTIME [facility] Administration Omeprazole 40 mg 02/23/21 06:30 02/24/21 06:23 Omeprazole 40 Mg Capsule.Dr PO 40 mg DAILY@0630 [facility] Administration Simethicone 80 mg 02/23/21 08:00 02/24/21 09:45 Simethicone 80 Mg Tab.Chew PO Not Given TIDWM [facility] Trazodone HCl 50 mg 02/22/21 19:02 Trazodone Hcl 50 Mg Tablet PO BEDTIME PRN Insomnia Venlafaxine HCl 75 mg 02/23/21 09:00 02/24/21 09:45 Venlafaxine Hcl Er 75 Mg Cap.Er.24h PO 75 mg DAILY [facility] Administration Venlafaxine HCl 150 mg 02/23/21 09:00 02/24/21 09:46 Venlafaxine Hcl Er 150 Mg Cap.Er.24h PO 150 mg DAILY [facility] Administration Allergies Allergies Allergy/AdvReac Type Severity Reaction Status Date / Time ciprofloxacin Allergy rash Verified 10/25/20 06:38 nitrofurantoin Allergy rash Verified 10/25/20 06:38 [From Macrobid] Sulfa (Sulfonamide Allergy rash Verified 10/25/20 06:38 Antibiotics) quetiapine [From Seroquel] AdvReac suicidal Verified 10/25/20 06:38 ideation Assessment & Plan Assessment & Plan (1) MDD (major depressive disorder), recurrent severe, without psychosis: Status: Acute Code(s): F33.2 - Major depressive disorder, recurrent severe without psychotic features (2) NIURKA (generalized anxiety disorder): Status: Acute Code(s): F41.1 - Generalized anxiety disorder (3) PTSD (post-traumatic stress disorder): Status: Acute Code(s): F43.10 - Post-traumatic stress disorder, unspecified Assessment and Plan: Diagnosis PTSD and depression Patient denies current active suicidal ideation mirtazapine started at [facility] for help with anxiety and depressive symptoms. Lower Effexor to 150 mg patient with some degree of blurred vision will hold off on increasing Abilify to 15 mg changed to evening may have less side effects. Patient wishes [facility] consider [facility] after discharge Greater than 50% of the session was spent on counseling and/or coordination of care Reason for contiued inpatient stay Substantial Risk for: harm to self, inability to function and rapid decompensation
[2021-02-24 15:32] VITALS: BP 134/67; PULSE 91
[2021-02-24] MEDS: Simethicone 80 MG TAB.CHEW PO (16:37)
[2021-02-24] MEDS: ARIPiprazole 10 MG TABLET PO (17:26)
[2021-02-24 17:45] VITALS: BP 115/54; PULSE 75; TEMP 36.8
[2021-02-24 21:00] VITALS: BP 126/74; PULSE 75
[2021-02-24 21:17] VITALS: BP 126/74; PULSE 75
[2021-02-24] MEDS: Mirtazapine 7.5 MG TABLET PO (21:17)
--- NOTE | 2021-02-24 22:13 | PC.NURSE ---
Pt had family/friend bring in her infusion pump along with a Cpap machine. Pt mentioned that she does not want to use the Cpap machine while on M5. Pt will use her infusion pump once a week either on a Saturday or Saturday.
[2021-02-25 06:15] VITALS: BP 109/58; PULSE 71; RESP 18; TEMP 36.7; O2SAT 95
[2021-02-25] MEDS: Omeprazole 40 MG CAPSULE.DR PO (06:45)
[2021-02-25 09:00] VITALS: BP 109/56; PULSE 71
[2021-02-25] MEDS: cloNIDine HCL 0.1 MG TABLET PO ×2 (09:00→14:53)
[2021-02-25] MEDS: Simethicone 80 MG TAB.CHEW PO ×3 (09:00→16:42)
[2021-02-25] MEDS: Venlafaxine HCl ER 150 MG CAP.ER.24H PO (09:00)
[2021-02-25] MEDS: clonazePAM 1 MG TABLET PO ×2 (09:00→19:58)
--- NOTE | 2021-02-25 10:13 | HO.PSYCHPN ---
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 She reports intrusive thoughts about her deteriorating health and wonders if she will ever feel less depressed or less anxious again. She reports some blurry vision, unclear if due to effexor. She denies SI/HI. She has been visible in the unit, attends some groups. Appearance: casually groomed, good hygiene, in NAD Behavior: calm, cooperative Psychomotor: no agitation or retardation noted Speech: clear, normal rate/rhythm/volume, spontaneous TP: linear TC: no signs of psychosis, hopeless/helpless Mood: depressed Affect:blunted SI:denies HI:denies AH/VH:none Delusions:none Insight/judgment:fair x 2. Memory/cog: alert, oriented x 3. grossly intact to conversational testing. Review of Systems Review of Systems Constitutional : No Weight loss, No Fever, No Chills, No Night Sweats, No Fatigue, No Malaise ENT/Mouth : No Hearing loss, No Ear Pain, No Nasal Congestion, No Sinus Pain, No Hoarseness, No sore throat, No Rhinorrhea, No Swallowing Difficulty Eyes: No Eye Pain, No Swelling, No Redness, No Foreign Body, No Discharge, No Vision Changes Cardiovascular : No Chest Pain, No SOB, No Dyspnea on Exertion, No Orthopnea, No Edema, No Palpitations Respiratory : No Cough, No Sputum, No Wheezing, No Smoke Exposure, No Dyspnea Gastrointestinal : No Nausea, No Vomiting, No Diarrhea, No Constipation, No abdominal Pain, No Hematochezia, No Melena Genitourinary : no irregular bleeding, No Dysuria, No Urinary Frequency, No Hematuria, No Urinary Incontinence, No Urgency, No Flank Pain, No Urinary Flow Changes, No Hesitancy Musculoskeletal : No joint pain, No Myalgias, No Joint Swelling Skin : No Skin Lesions, No rash Neuro : No Weakness, No Numbness, No Paresthesias, No Loss of Consciousness, No Dizziness, No Headache Psych : No Anxiety/Panic, No Depression, No SI/HI/AH/VH, No Social Issues, Heme/Lymph: No Bruising, No Bleeding,No Lymphadenopathy Endocrine : No Polyuria, No Polydipsia, No Temperature Intolerance Yes all other systems are reviewed and are negative Diagnostics Vital Signs (24Hr): Vital Signs - 24 hr 02/25/21 14:53 02/25/21 19:46 02/25/21 19:58 Temperature 97.6 F Pulse Rate 74 71 71 Respiratory Rate Blood Pressure 117/58 L 99/49 L 99/49 L Pulse Oximetry 02/25/21 22:00 02/26/21 06:00 02/26/21 08:34 Temperature 97.7 F Pulse Rate 69 73 92 Respiratory Rate 18 Blood Pressure 103/52 L 109/55 L 128/60 Pulse Oximetry 97 Body Mass Index 43.9 Labs Results: 02/22/21 14:06 02/22/21 14:06 Medications Medications Current Medications Generic Name Dose Route Start Last Admin Trade Name Freq PRN Reason Stop Dose Admin Acetaminophen 650 mg 02/22/21 19:02 02/23/21 13:07 Acetaminophen 325 Mg Tablet PO 650 mg Q6H PRN Administration Headache/Pain Mild Scale (1-3) Al Hydroxide/Mg Hydroxide 30 ml 02/22/21 19:02 Magnesium Hydrox/Alum Hydrox 30 Ml Oral.Susp PO Q6H PRN Heartburn/Nausea Aripiprazole 10 mg 02/24/21 18:00 02/25/21 17:42 Aripiprazole 10 Mg Tablet PO 10 mg DAILY@1800 NEERAJ Administration Clonazepam 1 mg 02/22/21 21:00 02/26/21 08:34 Clonazepam 1 Mg Tablet PO 1 mg BID NEERAJ Administration Clonidine HCl 0.1 mg 02/22/21 21:00 02/26/21 08:34 Clonidine Hcl 0.1 Mg Tablet PO 0.1 mg TID NEERAJ Administration Protocol Hydroxyzine HCl 25 mg 02/22/21 19:02 02/23/21 01:30 Hydroxyzine Hcl 25 Mg Tablet PO 25 mg BEDTIME PRN Administration Anxiety Hydroxyzine HCl 50 mg 02/22/21 20:43 Hydroxyzine Hcl 50 Mg Tablet PO Q6H PRN anxiety/sleep Magnesium Hydroxide 30 ml 02/22/21 19:02 02/24/21 10:12 Milk Of Magnesia 30 Ml Oral.Susp PO 30 ml DAILY PRN Administration Constipation Melatonin 6 mg 02/22/21 20:43 02/26/21 00:10 Melatonin 3 Mg Tablet PO 6 mg BEDTIME PRN Administration Sleep Mirtazapine 7.5 mg 02/23/21 21:00 02/25/21 19:58 Mirtazapine 7.5 Mg Tablet PO 7.5 mg BEDTIME NEERAJ Administration Omeprazole 40 mg 02/23/21 06:30 02/26/21 07:01 Omeprazole 40 Mg Capsule.Dr PO 40 mg DAILY@0630 NEERAJ Administration Simethicone 80 mg 02/23/21 08:00 02/26/21 08:35 Simethicone 80 Mg Tab.Chew PO 80 mg TIDWM NEERAJ Administration Trazodone HCl 50 mg 02/22/21 19:02 Trazodone Hcl 50 Mg Tablet PO BEDTIME PRN Insomnia Venlafaxine HCl 150 mg 02/23/21 09:00 02/26/21 08:35 Venlafaxine Hcl Er 150 Mg Cap.Er.24h PO 150 mg DAILY NEERAJ Administration Allergies Allergies Allergy/AdvReac Type Severity Reaction Status Date / Time ciprofloxacin Allergy rash Verified 10/25/20 06:38 nitrofurantoin Allergy rash Verified 10/25/20 06:38 [From Macrobid] Sulfa (Sulfonamide Allergy rash Verified 10/25/20 06:38 Antibiotics) quetiapine [From Seroquel] AdvReac suicidal Verified 10/25/20 06:38 ideation Assessment & Plan Assessment & Plan (1) MDD (major depressive disorder), recurrent severe, without psychosis: Status: Acute Code(s): F33.2 - Major depressive disorder, recurrent severe without psychotic features (2) NIURKA (generalized anxiety disorder): Status: Acute Code(s): F41.1 - Generalized anxiety disorder (3) PTSD (post-traumatic stress disorder): Status: Acute Code(s): F43.10 - Post-traumatic stress disorder, unspecified Assessment and Plan: Diagnosis PTSD and depression Patient denies current active suicidal ideation mirtazapine started at [facility] for help with anxiety and depressive symptoms. Lower Effexor to 150 mg patient with some degree of blurred vision will hold off on increasing Abilify to 15 mg changed to evening may have less side effects. Patient wishes to consider partial hospital after discharge Greater than 50% of the session was spent on counseling and/or coordination of care Reason for contiued inpatient stay Substantial Risk for: harm to self
[2021-02-25 14:53] VITALS: BP 117/58; PULSE 74
[2021-02-25] MEDS: ARIPiprazole 10 MG TABLET PO (17:42)
[2021-02-25 19:46] VITALS: BP 99/49; PULSE 71; TEMP 36.4
[2021-02-25 19:58] VITALS: BP 99/49; PULSE 71
[2021-02-25] MEDS: Mirtazapine 7.5 MG TABLET PO (19:58)
[2021-02-25 22:00] VITALS: BP 103/52; PULSE 69
[2021-02-26] MEDS: Melatonin 3 MG TABLET 6 MG PO ×2 (00:10→20:50)
[2021-02-26 06:00] VITALS: BP 109/55; PULSE 73; RESP 18; TEMP 36.5; O2SAT 97
[2021-02-26] MEDS: Omeprazole 40 MG CAPSULE.DR PO (07:01)
[2021-02-26 08:34] VITALS: BP 128/60; PULSE 92
[2021-02-26] MEDS: clonazePAM 1 MG TABLET PO ×2 (08:34→20:47)
[2021-02-26] MEDS: cloNIDine HCL 0.1 MG TABLET PO ×3 (08:34→20:48)
[2021-02-26] MEDS: Simethicone 80 MG TAB.CHEW PO ×3 (08:35→18:06)
[2021-02-26] MEDS: Venlafaxine HCl ER 150 MG CAP.ER.24H PO (08:35)
[2021-02-26] MEDS: Acetaminophen 325 MG TABLET 650 MG PO (10:13)
[2021-02-26] MEDS: hydrOXYzine HCL 50 MG TABLET PO (10:13)
--- NOTE | 2021-02-26 10:17 | HO.PSYCHPN ---
Subjective Subjective Date of Service: 02/26/21 Reason For Visit: SI Interim History: Pt reports sleeping slightly better. She reports appetite is fair. 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 She denies SI/HI. She continues to endorse feeling hopeless/helpless, although not suicidal. She has been visible in the unit, attends some groups. MSE Appearance: casually groomed, good hygiene, in NAD Behavior: calm, cooperative Psychomotor: no agitation or retardation noted Speech: clear, normal rate/rhythm/volume, spontaneous TP: linear TC: no signs of psychosis, hopeless/helpless Mood: depressed Affect:blunted SI:denies HI:denies AH/VH:none Delusions:none Insight/judgment:fair x 2. Memory/cog: alert, oriented x 3. grossly intact to conversational testing. Review of Systems Review of Systems Constitutional : No Weight loss, No Fever, No Chills, No Night Sweats, No Fatigue, No Malaise ENT/Mouth : No Hearing loss, No Ear Pain, No Nasal Congestion, No Sinus Pain, No Hoarseness, No sore throat, No Rhinorrhea, No Swallowing Difficulty Eyes: No Eye Pain, No Swelling, No Redness, No Foreign Body, No Discharge, No Vision Changes Cardiovascular : No Chest Pain, No SOB, No Dyspnea on Exertion, No Orthopnea, No Edema, No Palpitations Respiratory : No Cough, No Sputum, No Wheezing, No Smoke Exposure, No Dyspnea Gastrointestinal : No Nausea, No Vomiting, No Diarrhea, No Constipation, No abdominal Pain, No Hematochezia, No Melena Genitourinary : no irregular bleeding, No Dysuria, No Urinary Frequency, No Hematuria, No Urinary Incontinence, No Urgency, No Flank Pain, No Urinary Flow Changes, No Hesitancy Musculoskeletal : No joint pain, No Myalgias, No Joint Swelling Skin : No Skin Lesions, No rash Neuro : No Weakness, No Numbness, No Paresthesias, No Loss of Consciousness, No Dizziness, No Headache Psych : No Anxiety/Panic, No Depression, No SI/HI/AH/VH, No Social Issues, Heme/Lymph: No Bruising, No Bleeding,No Lymphadenopathy Endocrine : No Polyuria, No Polydipsia, No Temperature Intolerance Yes all other systems are reviewed and are negative Mental Status Exam Mental Status Exam Patient Appearance: Well Grooomed Patient Orientation: Person, Place, Time and Situation Level of Consciousness: Awake and Appropriate Patient Behavior: Appropriate and Cooperative Mood Description: Depressed, Anxious and Apprehensive Affect Description: Depressed, Anxious, Nervous and Apprehensive Patient Cognition Impaired: No Ability to Follow Directions: Excellent Speech Pattern: Clear Memory Description: Intact Diagnostics Vital Signs (24Hr): Vital Signs - 24 hr 02/25/21 14:53 02/25/21 19:46 02/25/21 19:58 Temperature 97.6 F Pulse Rate 74 71 71 Respiratory Rate Blood Pressure 117/58 L 99/49 L 99/49 L Pulse Oximetry 02/25/21 22:00 02/26/21 06:00 02/26/21 08:34 Temperature 97.7 F Pulse Rate 69 73 92 Respiratory Rate 18 Blood Pressure 103/52 L 109/55 L 128/60 Pulse Oximetry 97 Body Mass Index 43.9 Labs Results: 02/22/21 14:06 02/22/21 14:06 Medications Medications Current Medications Generic Name Dose Route Start Last Admin Trade Name Freq PRN Reason Stop Dose Admin Acetaminophen 650 mg 02/22/21 19:02 02/26/21 10:13 Acetaminophen 325 Mg Tablet PO 650 mg Q6H PRN Administration Headache/Pain Mild Scale (1-3) Al Hydroxide/Mg Hydroxide 30 ml 02/22/21 19:02 Magnesium Hydrox/Alum Hydrox 30 Ml Oral.Susp PO Q6H PRN Heartburn/Nausea Aripiprazole 10 mg 02/24/21 18:00 02/25/21 17:42 Aripiprazole 10 Mg Tablet PO 10 mg DAILY@1800 [facility]ERAJ Administration Clonazepam 1 mg 02/22/21 21:00 02/26/21 08:34 Clonazepam 1 Mg Tablet PO 1 mg BID NEERAJ Administration Clonidine HCl 0.1 mg 02/22/21 21:00 02/26/21 08:34 Clonidine Hcl 0.1 Mg Tablet PO 0.1 mg TID NEERAJ Administration Protocol Hydroxyzine HCl 25 mg 02/22/21 19:02 02/23/21 01:30 Hydroxyzine Hcl 25 Mg Tablet PO 25 mg BEDTIME PRN Administration Anxiety Hydroxyzine HCl 50 mg 02/22/21 20:43 02/26/21 10:13 Hydroxyzine Hcl 50 Mg Tablet PO 50 mg Q6H PRN Administration anxiety/sleep Magnesium Hydroxide 30 ml 02/22/21 19:02 02/24/21 10:12 Milk Of Magnesia 30 Ml Oral.Susp PO 30 ml DAILY PRN Administration Constipation Melatonin 6 mg 02/22/21 20:43 02/26/21 00:10 Melatonin 3 Mg Tablet PO 6 mg BEDTIME PRN Administration Sleep Mirtazapine 7.5 mg 02/23/21 21:00 02/25/21 19:58 Mirtazapine 7.5 Mg Tablet PO 7.5 mg BEDTIME NEERAJ Administration Omeprazole 40 mg 02/23/21 06:30 02/26/21 07:01 Omeprazole 40 Mg Capsule.Dr PO 40 mg DAILY@0630 NEERAJ Administration Simethicone 80 mg 02/23/21 08:00 02/26/21 08:35 Simethicone 80 Mg Tab.Chew PO 80 mg TIDWM NEERAJ Administration Trazodone HCl 50 mg 02/22/21 19:02 Trazodone Hcl 50 Mg Tablet PO BEDTIME PRN Insomnia Venlafaxine HCl 150 mg 02/23/21 09:00 02/26/21 08:35 Venlafaxine Hcl Er 150 Mg Cap.Er.24h PO 150 mg DAILY NEERAJ Administration Allergies Allergies Allergy/AdvReac Type Severity Reaction Status Date / Time ciprofloxacin Allergy rash Verified 10/25/20 06:38 nitrofurantoin Allergy rash Verified 10/25/20 06:38 [From Macrobid] Sulfa (Sulfonamide Allergy rash Verified 10/25/20 06:38 Antibiotics) quetiapine [From Seroquel] AdvReac suicidal Verified 10/25/20 06:38 ideation Assessment & Plan Assessment & Plan (1) MDD (major depressive disorder), recurrent severe, without psychosis: Status: Acute Code(s): F33.2 - Major depressive disorder, recurrent severe without psychotic features (2) NIURKA (generalized anxiety disorder): Status: Acute Code(s): F41.1 - Generalized anxiety disorder (3) PTSD (post-traumatic stress disorder): Status: Acute Code(s): F43.10 - Post-traumatic stress disorder, unspecified Assessment and Plan: Diagnosis PTSD and depression Patient denies current active suicidal ideation mirtazapine started at [facility] for help with anxiety and depressive symptoms. Lower Effexor to 150 mg patient with some degree of blurred vision will hold off on increasing Abilify to 15 mg changed to evening may have less side effects. Patient wishes to consider partial hospital after discharge Greater than 50% of the session was spent on counseling and/or coordination of care Reason for contiued inpatient stay Substantial Risk for: harm to self
[2021-02-26 14:41] VITALS: BP 128/60; PULSE 85
[2021-02-26] MEDS: ARIPiprazole 10 MG TABLET PO (18:06)
[2021-02-26 20:48] VITALS: BP 119/79; PULSE 80
[2021-02-26] MEDS: Mirtazapine 7.5 MG TABLET PO (20:48)
[2021-02-26 20:55] VITALS: BP 119/79; PULSE 80; TEMP 36.4
[2021-02-27 06:51] VITALS: BP 130/70; PULSE 66; TEMP 36.3; O2SAT 98
[2021-02-27] MEDS: Omeprazole 40 MG CAPSULE.DR PO (06:52)
[2021-02-27] MEDS: Venlafaxine HCl ER 150 MG CAP.ER.24H PO (08:40)
[2021-02-27 08:41] VITALS: BP 133/81; PULSE 74
[2021-02-27] MEDS: cloNIDine HCL 0.1 MG TABLET PO ×2 (08:41→14:03)
[2021-02-27] MEDS: Simethicone 80 MG TAB.CHEW PO ×3 (08:46→17:18)
[2021-02-27] MEDS: clonazePAM 1 MG TABLET PO ×2 (08:47→20:46)
[2021-02-27] MEDS: Acetaminophen 325 MG TABLET 650 MG PO (08:47)
--- NOTE | 2021-02-27 11:14 | P.PNPSI_ITS ---
Subjective Subjective Date of Service: 02/27/21 Reason For Visit: SI Interim History: Patient continues to feel quite fragile and ruminating. Catastrophic thinking continues needs much reassurance denies active thoughts of self-harm in this setting. Is fearful to return home in this state what she might do. Having intrusive flashbacks working on grounding. Medication Compliance: Yes Side effects from medications: No Attending Groups: Yes Mental Status Exam Mental Status Exam Patient Appearance: Well Grooomed Patient Orientation: Person, Place, Time and Situation Level of Consciousness: Awake and Appropriate Patient Behavior: Appropriate and Cooperative Mood Description: Depressed, Anxious, Nervous and Apprehensive Affect Description: Depressed, Anxious, Nervous and Apprehensive Patient Cognition Impaired: No Ability to Follow Directions: Excellent Speech Pattern: Clear Memory Description: Intact Hallucinations: None Delusions: Not Present Thought Process: Rumination Thought Content: positive for Perseveration, positive for Preoccupation and positive for Suicidal Ideation (fearful of impulsivity) Depressive Symptoms: Increased Anxiety, Hopelessness and Difficulty Concentrating Judgement and Insight: Patient needs much reassurance regarding events prior to admission when she was unable to function at work with then having catastrophic thinking and suicidal impulsivity she is preoccupied with this denies intent plan in this setting Diagnostics Vital Signs (24Hr): Vital Signs - 24 hr 02/26/21 14:41 02/26/21 20:48 02/26/21 20:55 Temperature 97.5 F Pulse Rate 85 80 80 Blood Pressure 128/60 119/79 119/79 Pulse Oximetry 02/27/21 06:51 02/27/21 08:41 Temperature 97.3 F Pulse Rate 66 74 Blood Pressure 130/70 133/81 Pulse Oximetry 98 Body Mass Index 43.9 Labs Results: 02/22/21 14:06 02/22/21 14:06 Medications Medications Current Medications Generic Name Dose Route Start Last Admin Trade Name Freq PRN Reason Stop Dose Admin Acetaminophen 650 mg 02/22/21 19:02 02/27/21 08:47 Acetaminophen 325 Mg Tablet PO 650 mg Q6H PRN Administration Headache/Pain Mild Scale (1-3) Al Hydroxide/Mg Hydroxide 30 ml 02/22/21 19:02 Magnesium Hydrox/Alum Hydrox 30 Ml Oral.Susp PO Q6H PRN Heartburn/Nausea Aripiprazole 15 mg 02/27/21 18:00 Aripiprazole 15 Mg Tablet PO DAILY@1800 [facility]ERAJ Clonazepam 1 mg 02/22/21 21:00 02/27/21 08:47 Clonazepam 1 Mg Tablet PO 1 mg BID NEERAJ Administration Clonidine HCl 0.1 mg 02/22/21 21:00 02/27/21 08:41 Clonidine Hcl 0.1 Mg Tablet PO 0.1 mg TID NEERAJ Administration Protocol Hydroxyzine HCl 25 mg 02/22/21 19:02 02/23/21 01:30 Hydroxyzine Hcl 25 Mg Tablet PO 25 mg BEDTIME PRN Administration Anxiety Hydroxyzine HCl 50 mg 02/22/21 20:43 02/26/21 10:13 Hydroxyzine Hcl 50 Mg Tablet PO 50 mg Q6H PRN Administration anxiety/sleep Magnesium Hydroxide 30 ml 02/22/21 19:02 02/24/21 10:12 Milk Of Magnesia 30 Ml Oral.Susp PO 30 ml DAILY PRN Administration Constipation Melatonin 6 mg 02/22/21 20:43 02/26/21 20:50 Melatonin 3 Mg Tablet PO 6 mg BEDTIME PRN Administration Sleep Mirtazapine 15 mg 02/27/21 21:00 Mirtazapine 7.5 Mg Tablet PO BEDTIME [facility] Omeprazole 40 mg 02/23/21 06:30 02/27/21 06:52 Omeprazole 40 Mg Capsule.Dr PO 40 mg DAILY@0630 [facility] Administration Simethicone 80 mg 02/23/21 08:00 02/27/21 08:46 Simethicone 80 Mg Tab.Chew PO 80 mg TIDWM NEERAJ Administration Trazodone HCl 50 mg 02/22/21 19:02 Trazodone Hcl 50 Mg Tablet PO BEDTIME PRN Insomnia Venlafaxine HCl 150 mg 02/23/21 09:00 02/27/21 08:40 Venlafaxine Hcl Er 150 Mg Cap.Er.24h PO 150 mg DAILY NEERAJ Administration Allergies Allergies Allergy/AdvReac Type Severity Reaction Status Date / Time ciprofloxacin Allergy rash Verified 10/25/20 06:38 nitrofurantoin Allergy rash Verified 10/25/20 06:38 [From Macrobid] Sulfa (Sulfonamide Allergy rash Verified 10/25/20 06:38 Antibiotics) quetiapine [From Seroquel] AdvReac suicidal Verified 10/25/20 06:38 ideation Assessment & Plan Assessment & Plan (1) MDD (major depressive disorder), recurrent severe, without psychosis: Status: Acute Code(s): F33.2 - Major depressive disorder, recurrent severe without psychotic features (2) NIURKA (generalized anxiety disorder): Status: Acute Code(s): F41.1 - Generalized anxiety disorder (3) PTSD (post-traumatic stress disorder): Status: Acute Code(s): F43.10 - Post-traumatic stress disorder, unspecified Assessment and Plan: Diagnosis PTSD and depression Patient continues with severe anxiety rumination in fear future. She did respond to reassurance encouragement for grounding and anxiety management strategies. Periods of dissociation and anxiety prior to admission caused catastrophic reaction. Increase Abilify to 15 mg does feel better taking it in the evening increase mirtazapine to 15 mg at bedtime try for step-down to partial hospital program for additional structure support coping strategies , support and safety Greater than 50% of the session was spent on counseling and/or coordination of care Reason for contiued inpatient stay Substantial Risk for: harm to self and rapid decompensation
[2021-02-27 14:03] VITALS: BP 136/58; PULSE 84
[2021-02-27] MEDS: ARIPiprazole 15 MG TABLET PO (17:18)
[2021-02-27] MEDS: Mirtazapine 7.5 MG TABLET 15 MG PO (20:46)
[2021-02-27 20:50] VITALS: BP 115/53; PULSE 97; RESP 18; TEMP 36.6; O2SAT 97
[2021-02-28 06:00] VITALS: BP 90/51; PULSE 80; RESP 16; TEMP 35.4; O2SAT 95
[2021-02-28] MEDS: Omeprazole 40 MG CAPSULE.DR PO (06:08)
[2021-02-28] MEDS: Venlafaxine HCl ER 150 MG CAP.ER.24H PO (08:49)
[2021-02-28] MEDS: Simethicone 80 MG TAB.CHEW PO ×3 (08:49→16:55)
[2021-02-28 08:53] VITALS: BP 90/51; PULSE 80
[2021-02-28] MEDS: Acetaminophen 325 MG TABLET 650 MG PO ×2 (09:56→17:00)
--- NOTE | 2021-02-28 10:23 | P.PNPSI_ITS ---
Subjective Subjective Date of Service: 02/28/21 Reason For Visit: SI Subjective Notes: Conditional Voluntary Interim History: pt with r rumination anxiety regarding her fx clonidine was held x 2 secondary to lowered systolic anxious depressed Medication Compliance: Yes Side effects from medications: Yes Attending Groups: Yes Mental Status Exam Mental Status Exam Patient Appearance: Well Grooomed Patient Orientation: Person, Place, Time and Situation Level of Consciousness: Awake and Appropriate Patient Behavior: Appropriate and Cooperative Mood Description: Depressed, Anxious, Nervous and Apprehensive Affect Description: Depressed, Anxious, Nervous and Apprehensive Patient Cognition Impaired: No Ability to Follow Directions: Excellent Speech Pattern: Clear Memory Description: Intact Hallucinations: None Delusions: Not Present Thought Process: Rumination Thought Content: positive for Perseveration, positive for Preoccupation and positive for Suicidal Ideation (fearful of impulsivity) Depressive Symptoms: Increased Anxiety, Hopelessness and Difficulty Concentrating Judgement and Insight: Patient needs much reassurance regarding events prior to admission when she was unable to function at work with then having catastrophic thinking and suicidal impulsivity she is preoccupied with this denies intent plan in this setting Diagnostics Vital Signs (24Hr): Vital Signs - 24 hr 02/27/21 14:03 02/27/21 20:50 02/28/21 06:00 Temperature 98 F 95.7 F L Pulse Rate 84 97 80 Respiratory Rate 18 16 Blood Pressure 136/58 L 115/53 L 90/51 L Pulse Oximetry 97 95 02/28/21 08:53 Temperature Pulse Rate 80 Respiratory Rate Blood Pressure 90/51 L Pulse Oximetry Body Mass Index 43.9 Labs Results: 02/22/21 14:06 02/22/21 14:06 Medications Medications Current Medications Generic Name Dose Route Start Last Admin Trade Name Freq PRN Reason Stop Dose Admin Acetaminophen 650 mg 02/22/21 19:02 02/28/21 09:56 Acetaminophen 325 Mg Tablet PO 650 mg Q6H PRN Administration Headache/Pain Mild Scale (1-3) Al Hydroxide/Mg Hydroxide 30 ml 02/22/21 19:02 Magnesium Hydrox/Alum Hydrox 30 Ml Oral.Susp PO Q6H PRN Heartburn/Nausea Aripiprazole 15 mg 02/27/21 18:00 02/27/21 17:18 Aripiprazole 15 Mg Tablet PO 15 mg DAILY@1800 NEERAJ Administration Clonidine HCl 0.1 mg 02/22/21 21:00 02/28/21 08:53 Clonidine Hcl 0.1 Mg Tablet PO Not Given TID [facility] Protocol Hydroxyzine HCl 25 mg 02/22/21 19:02 02/23/21 01:30 Hydroxyzine Hcl 25 Mg Tablet PO 25 mg BEDTIME PRN Administration Anxiety Hydroxyzine HCl 50 mg 02/22/21 20:43 02/26/21 10:13 Hydroxyzine Hcl 50 Mg Tablet PO 50 mg Q6H PRN Administration anxiety/sleep Magnesium Hydroxide 30 ml 02/22/21 19:02 02/24/21 10:12 Milk Of Magnesia 30 Ml Oral.Susp PO 30 ml DAILY PRN Administration Constipation Melatonin 6 mg 02/22/21 20:43 02/26/21 20:50 Melatonin 3 Mg Tablet PO 6 mg BEDTIME PRN Administration Sleep Mirtazapine 15 mg 02/27/21 21:00 02/27/21 20:46 Mirtazapine 7.5 Mg Tablet PO 15 mg BEDTIME [facility]ERAJ Administration Omeprazole 40 mg 02/23/21 06:30 02/28/21 06:08 Omeprazole 40 Mg Capsule.Dr PO 40 mg DAILY@0630 NEERAJ Administration Simethicone 80 mg 02/23/21 08:00 02/28/21 08:49 Simethicone 80 Mg Tab.Chew PO 80 mg TIDWM NEERAJ Administration Trazodone HCl 50 mg 02/22/21 19:02 Trazodone Hcl 50 Mg Tablet PO BEDTIME PRN Insomnia Venlafaxine HCl 150 mg 02/23/21 09:00 02/28/21 08:49 Venlafaxine Hcl Er 150 Mg Cap.Er.24h PO 150 mg DAILY NEERAJ Administration Allergies Allergies Allergy/AdvReac Type Severity Reaction Status Date / Time ciprofloxacin Allergy rash Verified 10/25/20 06:38 nitrofurantoin Allergy rash Verified 10/25/20 06:38 [From Macrobid] Sulfa (Sulfonamide Allergy rash Verified 10/25/20 06:38 Antibiotics) quetiapine [From Seroquel] AdvReac suicidal Verified 10/25/20 06:38 ideation Assessment & Plan Assessment & Plan (1) MDD (major depressive disorder), recurrent severe, without psychosis: Status: Acute Code(s): F33.2 - Major depressive disorder, recurrent severe without psychotic features (2) NIURKA (generalized anxiety disorder): Status: Acute Code(s): F41.1 - Generalized anxiety disorder (3) PTSD (post-traumatic stress disorder): Status: Acute Code(s): F43.10 - Post-traumatic stress disorder, unspecified Assessment and Plan: Some improvement in mood continues with significant anxiety in question combination of clonidine and Abilify contributing to some periods of hypotension may benefit from splitting Abilify continue to monitor blood pressure with clonidine for anxiety and PTSD symptoms mirtazapine seems to be helpful Greater than 50% of the session was spent on counseling and/or coordination of care Reason for contiued inpatient stay Substantial Risk for: inability to function and rapid decompensation
[2021-02-28 13:44] VITALS: BP 143/84; PULSE 95
[2021-02-28] MEDS: cloNIDine HCL 0.1 MG TABLET PO ×2 (13:44→20:42)
[2021-02-28] MEDS: clonazePAM 1 MG TABLET PO ×2 (14:51→20:42)
[2021-02-28] MEDS: ARIPiprazole 15 MG TABLET PO (17:22)
[2021-02-28 18:00] VITALS: BP 136/79; PULSE 103; RESP 18; TEMP 36.3; O2SAT 95
[2021-02-28 20:42] VITALS: BP 141/70; PULSE 74
[2021-02-28] MEDS: Mirtazapine 7.5 MG TABLET 15 MG PO (20:42)
[2021-03-01 06:00] VITALS: BP 113/56; PULSE 84; RESP 18; TEMP 35.6; O2SAT 95
[2021-03-01] MEDS: Omeprazole 40 MG CAPSULE.DR PO (06:42)
[2021-03-01 08:55] VITALS: BP 143/73; PULSE 90
[2021-03-01] MEDS: Venlafaxine HCl ER 150 MG CAP.ER.24H PO (08:55)
[2021-03-01] MEDS: clonazePAM 1 MG TABLET PO ×2 (08:55→20:39)
[2021-03-01] MEDS: Acetaminophen 325 MG TABLET 650 MG PO ×2 (08:55→17:59)
[2021-03-01] MEDS: Simethicone 80 MG TAB.CHEW PO ×3 (08:55→17:57)
[2021-03-01] MEDS: cloNIDine HCL 0.1 MG TABLET PO ×3 (08:55→20:39)
[2021-03-01] MEDS: Ibuprofen 400 MG TABLET PO ×2 (14:09→20:40)
[2021-03-01 14:25] VITALS: BP 142/60; PULSE 91
[2021-03-01] MEDS: ARIPiprazole 15 MG TABLET PO (17:57)
[2021-03-01 20:35] VITALS: TEMP 36.7
[2021-03-01 20:39] VITALS: BP 127/77; PULSE 79
[2021-03-01] MEDS: Mirtazapine 7.5 MG TABLET 15 MG PO (20:39)
--- NOTE | 2021-03-01 21:49 | P.PNPSI_ITS ---
Subjective Subjective Date of Service: 03/01/21 Reason For Visit: SI Subjective Notes: Conditional Voluntary Interim History: Pt improving remains ruminating intrusive thoights better with inc abilify 15 mg mirtazapine hs discussed relaxation breathing grounding enc ourage agrees to [facility] rtw half time Mental Status Exam Mental Status Exam Patient Appearance: Well Grooomed Patient Orientation: Person, Place, Time and Situation Level of Consciousness: Awake and Appropriate Patient Behavior: Cooperative Mood Description: Appropriate Affect Description: Constricted and Depressed Patient Cognition Impaired: No Ability to Follow Directions: Good Speech Pattern: Clear Memory Description: Intact Hallucinations: None Delusions: Not Present Thought Process: Goal Oriented Thought Content: positive for Intact Depressive Symptoms: Increased Anxiety and Loss of Int. in Activity Judgement: Fair Diagnostics Vital Signs (24Hr): Vital Signs - 24 hr 03/01/21 06:00 03/01/21 08:55 03/01/21 14:25 Temperature 96.1 F L Pulse Rate 84 90 91 Respiratory Rate 18 Blood Pressure 113/56 L 143/73 H 142/60 H Pulse Oximetry 95 03/01/21 20:35 03/01/21 20:39 Temperature 98.1 F Pulse Rate 79 Respiratory Rate Blood Pressure 127/77 Pulse Oximetry Body Mass Index 43.9 Labs Results: 02/22/21 14:06 02/22/21 14:06 Medications Medications Current Medications Generic Name Dose Route Start Last Admin Trade Name Freq PRN Reason Stop Dose Admin Acetaminophen 650 mg 02/22/21 19:02 03/01/21 17:59 Acetaminophen 325 Mg Tablet PO 650 mg Q6H PRN Administration Headache/Pain Mild Scale (1-3) Al Hydroxide/Mg Hydroxide 30 ml 02/22/21 19:02 Magnesium Hydrox/Alum Hydrox 30 Ml Oral.Susp PO Q6H PRN Heartburn/Nausea Aripiprazole 15 mg 02/27/21 18:00 03/01/21 17:57 Aripiprazole 15 Mg Tablet PO 15 mg DAILY@1800 NEERAJ Administration Clonazepam 1 mg 02/28/21 14:45 03/01/21 20:39 Clonazepam 1 Mg Tablet PO 1 mg BID NEERAJ Administration Clonidine HCl 0.1 mg 02/22/21 21:00 03/01/21 20:39 Clonidine Hcl 0.1 Mg Tablet PO 0.1 mg TID NEERAJ Administration Protocol Hydroxyzine HCl 25 mg 02/22/21 19:02 02/23/21 01:30 Hydroxyzine Hcl 25 Mg Tablet PO 25 mg BEDTIME PRN Administration Anxiety Hydroxyzine HCl 50 mg 02/22/21 20:43 02/26/21 10:13 Hydroxyzine Hcl 50 Mg Tablet PO 50 mg Q6H PRN Administration anxiety/sleep Ibuprofen 400 mg 03/01/21 13:21 03/01/21 20:40 Ibuprofen 400 Mg Tablet PO 400 mg Q6H PRN Administration Pain, Moderate (Pain Scale 4-6 Magnesium Hydroxide 30 ml 02/22/21 19:02 02/24/21 10:12 Milk Of Magnesia 30 Ml Oral.Susp PO 30 ml DAILY PRN Administration Constipation Melatonin 6 mg 02/22/21 20:43 02/26/21 20:50 Melatonin 3 Mg Tablet PO 6 mg BEDTIME PRN Administration Sleep Mirtazapine 15 mg 02/27/21 21:00 03/01/21 20:39 Mirtazapine 7.5 Mg Tablet PO 15 mg BEDTIME NEERAJ Administration Omeprazole 40 mg 02/23/21 06:30 03/01/21 06:42 Omeprazole 40 Mg Capsule.Dr PO 40 mg DAILY@0630 NEERAJ Administration Simethicone 80 mg 02/23/21 08:00 03/01/21 17:57 Simethicone 80 Mg Tab.Chew PO 80 mg TIDWM NEERAJ Administration Trazodone HCl 50 mg 02/22/21 19:02 Trazodone Hcl 50 Mg Tablet PO BEDTIME PRN Insomnia Venlafaxine HCl 150 mg 02/23/21 09:00 03/01/21 08:55 Venlafaxine Hcl Er 150 Mg Cap.Er.24h PO 150 mg DAILY NEERAJ Administration Allergies Allergies Allergy/AdvReac Type Severity Reaction Status Date / Time ciprofloxacin Allergy rash Verified 10/25/20 06:38 nitrofurantoin Allergy rash Verified 10/25/20 06:38 [From Macrobid] Sulfa (Sulfonamide Allergy rash Verified 10/25/20 06:38 Antibiotics) quetiapine [From Seroquel] AdvReac suicidal Verified 10/25/20 06:38 ideation Assessment & Plan Assessment & Plan (1) MDD (major depressive disorder), recurrent severe, without psychosis: Status: Acute Code(s): F33.2 - Major depressive disorder, recurrent severe without psychotic features (2) NIURKA (generalized anxiety disorder): Status: Acute Code(s): F41.1 - Generalized anxiety disorder (3) PTSD (post-traumatic stress disorder): Status: Acute Code(s): F43.10 - Post-traumatic stress disorder, unspecified Assessment and Plan: Some improvement in mood continues with significant anxiety in question combination of clonidine and Abilify contributing to some periods of hypotension may benefit from splitting Abilify continue to monitor blood pressure with clonidine for anxiety and PTSD symptoms mirtazapine seems to be helpful consider for d/c tomm Greater than 50% of the session was spent on counseling and/or coordination of care Reason for contiued inpatient stay Substantial Risk for: harm to self and rapid decompensation
[2021-03-02 06:00] VITALS: BP 112/55; PULSE 67; RESP 16; TEMP 36.1; O2SAT 95
[2021-03-02] MEDS: Omeprazole 40 MG CAPSULE.DR PO (06:56)
[2021-03-02] MEDS: clonazePAM 1 MG TABLET PO (09:19)
[2021-03-02] MEDS: Venlafaxine HCl ER 150 MG CAP.ER.24H PO (09:19)
[2021-03-02] MEDS: cloNIDine HCL 0.1 MG TABLET PO (09:19)
[2021-03-02] MEDS: Simethicone 80 MG TAB.CHEW PO (09:19)
--- NOTE | 2021-03-02 10:03 | PC.NURSE ---
PT HAS BEEN IN BEHAVIORAL CONTROL. SHE HAS BEEN VISIBLE ON THE UNIT AND SOCIAL WITH PEERS/STAFF. 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 PT IS READY AND AWARE OF DISCHARGE. SHE IS FUTURE ORIETED AND OPTIMISTIC ABOUT THE PARTIAL PROGRAM SHE WILL BE ATTENDING. PT DENIES SUICIDAL OR HOMICIDAL IDEATIONS. SHE DENIES DEPRESSION AND ANXIETY. PT HAS NO AUDITORY OR VISUAL HALLUCINATIONS. SHE HAS BEEN INDEPENDENTLY TAKING CARE OF HER ADLS SUCH BATHING AND CHANGING HER CLOTHING. PT IS EATING AND SLEEPING ADEQUATELY. SHE STATED THAT SHE FEELS MUCH BETTER THAN WHEN SHE ARRIVED . PT IS MAINTAINGING EYE CONTACT AND ENGAGING IN CONVERSATION. SHE FEELS LIKE HER HOSPITAL ADMISSION WAS BENEFICIAL TO HER MENTAL HEALTH. PT REPORTS THAT SHE FEELS SAFE ON THE UNIT AND BELIEVES SHE WILL BE SAFE UPON DISCHARGE.
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
== END 2021-03-02 11:05 | disposition home or self-care (01) | DRG 751 ==
LOC: HO.ED 19:10 → HO.PM5 19:11
PROVIDERS: Admitting Provider Social Worker; Emergency Provider Internal Medicine; PCP Internal Medicine; Visit Provider Psychiatry & Neurology Psychiatry
DX: F33.2 Major depressive disorder, recurrent severe without psychotic features (principal); R45.851 Suicidal ideations; K21.9 Gastro-esophageal reflux disease without esophagitis; F41.1 Generalized anxiety disorder; F43.10 Post-traumatic stress disorder, unspecified; Z20.822 Contact with and (suspected) exposure to COVID-19; Z88.2 Allergy status to sulfonamides; Z79.899 Other long term (current) drug therapy
CPT/HCPCS: 36415; 80053; 80061; 80307; 80320; 81025; 83036; 84443; 85025; 87635; 93005; 99285

== ENCOUNTER 2021-03-24 10:30 | Outpatient (RCR) | payer OTHER, MEDICAID, SELFPAY ==
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
[2021-03-03 13:43] VITALS: BMI 43.9
--- NOTE | 2021-03-03 13:58 | PC.ADMIT ---
Patient is a 55 year old female who was referred from where patient was admitted d/t increased in depression SI plan to overdose on her medications secondary to feeling overwhelmed with work stressors. Patient reports increased anxiety with panic attacks. Hx of trauma. Patient is on FMLA from work to work on her mental health. Patient is alert and oriented x4. calm and cooperative. Presents with depressed mood and affect. Denied SI. Gave verbal permission to email her a copy of her safety plan. Asked patient if she was feeling unsafe who could she contact and she stated crisis. Patients medications reconciled with patient and per d/c paperwork. Patient reports taking medications as prescribed.
--- NOTE | 2021-03-07 13:24 | P.PNPSP_ITS ---
Subjective Subjective Date of Service: 03/07/21 Reason For Visit: MDD, NIURKA Interim History: The patient reported improvement of her dysphoria with the increase of Remeron up to 30 mg po qhs. Her blurrry vision remains the same, most likely induced by Abilify 15 mg, she used to tolerate very well Abilify 10 mg without side effects. No safety concerns. Medication Compliance: Yes Side effects from medications: No Attending Groups: Yes Mental Status Exam Mental Status Exam Patient Appearance: Well Grooomed Patient Orientation: Person, Place, Time and Situation Level of Consciousness: Awake Patient Behavior: Appropriate Mood Description: Calm Affect Description: Appropriate Patient Cognition Impaired: No Ability to Follow Directions: Good Speech Pattern: Clear Memory Description: Intact Hallucinations: None Delusions: Not Present Thought Process: Goal Oriented Thought Content: positive for Intact Judgement: Fair Diagnostics Vital Signs (24Hr): Body Mass Index 43.9 Assessment & Plan Assessment & Plan (1) MDD (major depressive disorder), recurrent severe, without psychosis: Status: Acute Code(s): F33.2 - Major depressive disorder, recurrent severe without psychotic features Assessment and Plan: Middle age female, highly functional at baseline with MDD, PTSD and NIURKA, much better since we increased Remeron. Plan: Lower Abilify to 10 mg REst the same. (2) PTSD (post-traumatic stress disorder): Status: Acute Code(s): F43.10 - Post-traumatic stress disorder, unspecified Certification I certify that partial hospital treatment is medically necessary due to the symptoms and problems resulting from the patient's mental illness and the failure to treat the patient at the partial hospital level of care would likely result in the patient requiring inpatient psychiatric care which could not be pr evented at a less intensive level of care. Greater than 50% of the session was spent on counseling and/or coordination of care Discharge Plan Discharge Attending provider: Tyrell Dyson Primary Care Provider: Meghna Parson Medications: New mirtazapine [Remeron] 30 mg tablet 30 mg PO BEDTIME 30 Days Qty: 30 RF: 0 aripiprazole [Abilify] 10 mg tablet 10 mg PO DAILY Qty: 30 RF: 0 Discontinued aripiprazole 15 mg Tablet 15 mg PO DAILY@1800 30 Days Qty: 30 RF: 0 mirtazapine 15 mg tablet 15 mg PO BEDTIME 30 Days Qty: 30 RF: 0 No Action clonidine HCl 0.1 mg tablet 1 tab PO TID Qty: 0 RF: 0 venlafaxine 150 mg capsule,extended release 24hr 1 cap PO DAILY 30 Days Qty: 30 RF: 0 clonazepam 1 mg tablet 1 tab PO BID Qty: 0 RF: 0 hydroxyzine HCl 50 mg Tablet 50 mg PO Q6H PRN (Reason: anxiety/sleep) 15 Days Qty: 30 RF: 0 melatonin 3 mg Tablet 6 mg PO BEDTIME PRN (Reason: Sleep) 30 Days Qty: 30 RF: 0 omeprazole 40 mg Capsule,Delayed Release(Dr/Ec) 40 mg PO DAILY 30 Days Qty: 30 RF: 0 simethicone [Gas Relief (simethicone)] 80 mg Tablet,Chewable 80 mg PO TIDWM 30 Days Qty: 90 RF: 0 Referrals: Meghna Parson MD [Primary Care Provider] - 1 Week Stand Alone Forms: Patient Portal Discharge page Telehealth Telehealth Location of provider rendering services: practice address Location of patient: address on file Patient Identification confirmed using: Name, : Yes Telehealth method: video Patient verbally consented to treatment: Yes Patient verbally consented to billing insurance company: Yes Patient informed of any privacy concerns related to visit: No Time spent with patient (mins): 15
--- NOTE | 2021-03-09 12:44 | HO.PHPPROGNO ---
Subjective Subjective Date of Service: 03/09/21 Reason For Visit: MDD, NIURKA Interim History: The patient is oversedated with Remeron 30 mg, still with blurry vision. Her depression has improved, still anxious at times Medication Compliance: Yes Side effects from medications: No Attending Groups: Yes Review of Systems Acute medical concerns: No Medical Review of Systems: unchanged Mental Status Exam Mental Status Exam Patient Appearance: Well Grooomed Patient Orientation: Person, Place, Time and Situation Level of Consciousness: Awake and Appropriate Patient Behavior: Appropriate Mood Description: Calm Affect Description: Appropriate Patient Cognition Impaired: No Ability to Follow Directions: Good Speech Pattern: Clear Memory Description: Intact Hallucinations: None Delusions: Not Present Thought Process: Goal Oriented Thought Content: positive for Intact Judgement: Fair Diagnostics Vital Signs (24Hr): Body Mass Index 43.9 Assessment & Plan Assessment & Plan (1) GERD (gastroesophageal reflux disease): Status: Acute Code(s): K21.9 - Gastro-esophageal reflux disease without esophagitis Assessment and Plan: Middle age female with MDD, NIRUKA and PTSD, still with blurry vision. Plan: Keep same treatmeent, if she is still oversedated lower Remeron (2) MDD (major depressive disorder), recurrent severe, without psychosis: Status: Acute Code(s): F33.2 - Major depressive disorder, recurrent severe without psychotic features (3) NIURKA (generalized anxiety disorder): Status: Acute Code(s): F41.1 - Generalized anxiety disorder Certification I certify that partial hospital treatment is medically necessary due to the symptoms and problems resulting from the patient's mental illness and the failure to treat the patient at the partial hospital level of care would likely result in the patient requiring inpatient psychiatric care which could not be prevented at a less intensive level of care. Greater than 50% of the session was spent on counseling and/or coordination of care Discharge Plan Discharge Attending provider: Tyrell Dyson Primary Care Provider: Meghna Parson Medications: New mirtazapine [Remeron] 30 mg tablet 30 mg PO BEDTIME 30 Days Qty: 30 RF: 0 aripiprazole [Abilify] 10 mg tablet 10 mg PO DAILY Qty: 30 RF: 0 Discontinued aripiprazole 15 mg Tablet 15 mg PO DAILY@1800 30 Days Qty: 30 RF: 0 mirtazapine 15 mg tablet 15 mg PO BEDTIME 30 Days Qty: 30 RF: 0 No Action clonidine HCl 0.1 mg tablet 1 tab PO TID Qty: 0 RF: 0 venlafaxine 150 mg capsule,extended release 24hr 1 cap PO DAILY 30 Days Qty: 30 RF: 0 clonazepam 1 mg tablet 1 tab PO BID Qty: 0 RF: 0 hydroxyzine HCl 50 mg Tablet 50 mg PO Q6H PRN (Reason: anxiety/sleep) 15 Days Qty: 30 RF: 0 melatonin 3 mg Tablet 6 mg PO BEDTIME PRN (Reason: Sleep) 30 Days Qty: 30 RF: 0 omeprazole 40 mg Capsule,Delayed Release(Dr/Ec) 40 mg PO DAILY 30 Days Qty: 30 RF: 0 simethicone [Gas Relief (simethicone)] 80 mg Tablet,Chewable 80 mg PO TIDWM 30 Days Qty: 90 RF: 0 Referrals: Meghna Parson MD [Primary Care Provider] - 1 Week Stand Alone Forms: Patient Portal Discharge page Telehealth Telehealth Location of provider rendering services: practice address Location of patient: address on file Patient Identification confirmed using: Name, : Yes Telehealth method: video Patient verbally consented to treatment: Yes Patient verbally consented to billing insurance company: Yes Patient informed of any privacy concerns related to visit: No Time spent with patient (mins): 15
--- NOTE | 2021-03-16 13:24 | P.PNPSP_ITS ---
Subjective Subjective Date of Service: 03/16/21 Reason For Visit: MDD, NIURKA Interim History: The patient reported that she has been more anxious after an [employer] meeting. She feels more anxious and dysphoric at times with somatic symptoms such as diarrhea. She has tried Vistaril with minimal effect. Mental Status Exam Mental Status Exam Patient Appearance: Well Grooomed Patient Orientation: Person, Place and Time Level of Consciousness: Awake Patient Behavior: Appropriate Mood Description: Depressed and Nervous Affect Description: Anxious Patient Cognition Impaired: No Ability to Follow Directions: Good Speech Pattern: Clear Memory Description: Intact Hallucinations: None Delusions: Not Present Thought Process: Goal Oriented Thought Content: positive for Intact Depressive Symptoms: Increased Anxiety Judgement: Fair Diagnostics Vital Signs (24Hr): Body Mass Index 43.9 Assessment & Plan Assessment & Plan (1) MDD (major depressive disorder), recurrent severe, without psychosis: Status: Acute Code(s): F33.2 - Major depressive disorder, recurrent severe without psychotic features Assessment and Plan: Adult female with MDD and PTSD, more anxious triggered after an [employer]- [employer] meeting. Plan: Keep same treatment Increase Klonopin 1 mg po tid (2) NIURKA (generalized anxiety disorder): Status: Acute Code(s): F41.1 - Generalized anxiety disorder (3) PTSD (post-traumatic stress disorder): Status: Acute Code(s): F43.10 - Post-traumatic stress disorder, unspecified Certification I certify that partial hospital treatment is medically necessary due to the symptoms and problems resulting from the patient's mental illness and the failure to treat the patient at the partial hospital level of care would likely result in the patient requiring inpatient psychiatric care which could not be prevented at a less intensive level of care. Greater than 50% of the session was spent on counseling and/or coordination of care Discharge Plan Discharge Attending provider: Tyrell Dyson Primary Care Provider: Meghna Parson Medications: New mirtazapine [Remeron] 30 mg tablet 30 mg PO BEDTIME 30 Days Qty: 30 RF: 0 aripiprazole [Abilify] 10 mg tablet 10 mg PO DAILY Qty: 30 RF: 0 Changed clonazepam 1 mg tablet 1 tab PO TID PRN (Reason: anxiety) 7 Days Qty: 21 RF: 0 Discontinued aripiprazole 15 mg Tablet 15 mg PO DAILY@1800 30 Days Qty: 30 RF: 0 mirtazapine 15 mg tablet 15 mg PO BEDTIME 30 Days Qty: 30 RF: 0 No Action clonidine HCl 0.1 mg tablet 1 tab PO TID Qty: 0 RF: 0 venlafaxine 150 mg capsule,extended release 24hr 1 cap PO DAILY 30 Days Qty: 30 RF: 0 hydroxyzine HCl 50 mg Tablet 50 mg PO Q6H PRN (Reason: anxiety/sleep) 15 Days Qty: 30 RF: 0 melatonin 3 mg Tablet 6 mg PO BEDTIME PRN (Reason: Sleep) 30 Days Qty: 30 RF: 0 omeprazole 40 mg Capsule,Delayed Release(Dr/Ec) 40 mg PO DAILY 30 Days Qty: 30 RF: 0 simethicone [Gas Relief (simethicone)] 80 mg Tablet,Chewable 80 mg PO TIDWM 30 Days Qty: 90 RF: 0 Referrals: Meghna Parson MD [Primary Care Provider] - 1 Week Stand Alone Forms: Patient Portal Discharge page Telehealth Telehealth Location of provider rendering services: practice address Location of patient: address on file Patient Identification confirmed using: Name, : Yes Telehealth method: video Patient verbally consented to treatment: Yes Patient verbally consented to billing insurance company: Yes Patient informed of any privacy concerns related to visit: No Time spent with patient (mins): 15
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
--- NOTE | 2021-03-23 17:05 | P.PNPSP_ITS ---
Subjective Subjective Date of Service: 03/23/21 Reason For Visit: MDD, NIURKA Medical Problems Affecting Mental Status: No Interim History: Met with Gemrania today at 2:05pm. She reports that she tried taking 0.5 klonopin at suppertime, but it did not really help manage her overall anxiety, so she stopped. Reviewed current medications, no changes requested or suggested. Her last day in [facility] is tomorrow. She has been working on preparing herself to return to work Saturday, and is practicing anxiety reduction techniques to help keep the anxiety manageable. Germania saw eye doctor earlier this week, and blurry vision was related to eye- glass adjustment. Once completed, symptoms have gone away. She was relieved to find out that it was not due to the abilfy. She believes that she has gained skills and support in program participation, and is taking the future one day at a time . She has appointment with her psych prescriber on Saturday, and does not require any medication refills at this time. Medication Compliance: Yes Side effects from medications: No Attending Groups: Yes Review of Systems Review of Systems Yes all other systems are reviewed and are negative Mental Status Exam Mental Status Exam Patient Appearance: Well Grooomed and Appropriate Patient Orientation: Person, Place, Time and Situation Level of Consciousness: Awake and Appropriate Patient Behavior: Appropriate and Cooperative Mood Description: Calm Affect Description: Appropriate and Anxious Patient Cognition Impaired: No Ability to Follow Directions: Excellent Speech Pattern: Clear and Soft-Spoken Memory Description: Intact Hallucinations: None Delusions: Not Present Thought Process: Intact Thought Content: positive for Intact Depressive Symptoms: Increased Anxiety Judgement: Good Diagnostics Vital Signs (24Hr): Body Mass Index 43.9 Assessment & Plan Patient educated on: diagnosis, medication risk/benefits and therapeutic strategies Informed Consent: understands Reason for contiued partial hosp. stay Substantial Risk for: stable for discharge Certification I certify that partial hospital treatment is medically necessary due to the symptoms and problems resulting from the patient's mental illness and the failure to treat the patient at the partial hospital level of care would likely result in the patient requiring inpatient psychiatric care which could not be prevented at a less intensive level of care. Greater than 50% of the session was spent on counseling and/or coordination of care Discharge Plan Discharge Attending provider: Tyrell Dyson Primary Care Provider: Meghna Parson Medications: New mirtazapine [Remeron] 30 mg tablet 30 mg PO BEDTIME 30 Days Qty: 30 RF: 0 aripiprazole [Abilify] 10 mg tablet 10 mg PO DAILY Qty: 30 RF: 0 Changed clonazepam 1 mg tablet 1 tab PO TID PRN (Reason: anxiety) 7 Days Qty: 21 RF: 0 Discontinued aripiprazole 15 mg Tablet 15 mg PO DAILY@1800 30 Days Qty: 30 RF: 0 mirtazapine 15 mg tablet 15 mg PO BEDTIME 30 Days Qty: 30 RF: 0 No Action clonidine HCl 0.1 mg tablet 1 tab PO TID Qty: 0 RF: 0 venlafaxine 150 mg capsule,extended release 24hr 1 cap PO DAILY 30 Days Qty: 30 RF: 0 hydroxyzine HCl 50 mg Tablet 50 mg PO Q6H PRN (Reason: anxiety/sleep) 15 Days Qty: 30 RF: 0 melatonin 3 mg Tablet 6 mg PO BEDTIME PRN (Reason: Sleep) 30 Days Qty: 30 RF: 0 omeprazole 40 mg Capsule,Delayed Release(Dr/Ec) 40 mg PO DAILY 30 Days Qty: 30 RF: 0 simethicone [Gas Relief (simethicone)] 80 mg Tablet,Chewable 80 mg PO TIDWM 30 Days Qty: 90 RF: 0 Referrals: Meghna Parson MD [Primary Care Provider] - 1 Week Stand Alone Forms: Patient Portal Discharge page Telehealth Telehealth Location of provider rendering services: practice address Location of patient: address on file Patient Identification confirmed using: Name, : Yes Telehealth method: video Patient verbally consented to treatment: Yes Patient verbally consented to billing insurance company: Yes Patient informed of any privacy concerns related to visit: Yes Time spent with patient (mins): 15
--- NOTE | 2021-03-24 13:01 | PC.NURSE ---
Patient is discharging from the [facility] today. Reviewed patient's medications with patient. Patient taking medications as prescribed. Medication education provided. Patient reports improvement in symptoms and is ready to go back to work on Saturday.
--- NOTE | 2021-03-24 16:57 | PC.NURSE ---
I called and Left a message with pt's therapist, Jacki Argueta, informing her of pt's successful treatment stay in [facility], and successful discharge today.
== END 2021-03-27 08:49 | disposition home or self-care (01) ==
LOC: HO.PHPA 10:30
PROVIDERS: PCP Internal Medicine; Visit Provider Psychiatry & Neurology Psychiatry
DX: F33.2 Major depressive disorder, recurrent severe without psychotic features (principal); F41.1 Generalized anxiety disorder; F43.10 Post-traumatic stress disorder, unspecified; Z79.899 Other long term (current) drug therapy
CPT/HCPCS: 90791; 90853; 99212

== ENCOUNTER 2021-06-26 10:00 | Outpatient (RCR) | payer OTHER, SELFPAY ==
[2021-06-02 13:19] VITALS: BMI 46.7
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
--- NOTE | 2021-06-06 09:25 | PC.NURSE ---
Client out because of doctors appointment in am
--- NOTE | 2021-06-06 15:08 | PC.NURSE ---
06/05/21 Clients case was opened in treatment team
--- NOTE | 2021-06-08 14:26 | HO.PHPPROGNO ---
Subjective Subjective Date of Service: 06/08/21 Reason For Visit: MDD, NIURKA, PTSD Subjective Notes: [place] Warning Guardianship: No Medical Problems Affecting Mental Status: No Interim History: Ms. Luz describes feeling increased hyperalertness over the past several days, including intrusive thoughts, hearing the word bondage multiple times. She also describes feeling delusional, and says that she was watching her neighbors yesterday, and thinking that they were dealing drugs, because people had come and gone from their house several times. She states that she does not normally think they are dealing drugs. She states that she is generally ?not feeling at ease ?. We reviewed her current medications. We discussed the recent increase of Effexor from 150 mg daily to 187.5 mg daily. Patient is happy with this medication would like to continue at the 187.5 mg dose. We also discussed clonidine, and side effects related to its use. Discussed possibly omitting midday dose, patient has said she would consider it but is not ready today. We did discuss patient's Abilify 10 mg. Patient has started this medication in August 2020. Since that time, she has had 2 inpatient psychiatric hospitalizations, and 3 partial hospitalization admissions. We discussed side effect profile of Abilify, and discussed possible switch to risperidone. We discussed the risks, benefits, side effects, and alternatives. She is agreeable to making this which at this time. Patient also requesting assistance completing [facility] paperwork. Patient reports that ?I just want to feel like myself again ?. Medication Compliance: Yes Side effects from medications: No Attending Groups: Yes Review of Systems Acute medical concerns: No Medical Review of Systems: unchanged Mental Status Exam Mental Status Exam Narrative: Well-developed, overweight female, no apparent distress. Well groomed, appropriately dressed. Alert and oriented x4. Eye contact within normal limits. No involuntary movements, motor activity appears calm. Patient was calm and cooperative during encounter. Speech was fluent, unimpaired, patient is soft spoken. Patient describes mood as anxious and depressed. Affect congruent with mood. Thought process and associations appear to be goal directed. Thought content appears to be normal, future oriented. Patient reports some delusional thought regarding neighbors yesterday, does not display any today. Patient describes auditory hallucinations yesterday, although denies today. patient denies any thoughts of harm to self or others at this time. Patient appears to be reliable historian, with fair judgment and insight at this time. Ambulation not observed. Patient Appearance: Well Grooomed and Appropriate Patient Orientation: Person, Place, Time and Situation Patient Behavior: Appropriate and Cooperative Diagnostics Vital Signs (24Hr): Body Mass Index 46.7 Assessment & Plan Assessment & Plan (1) MDD (major depressive disorder), recurrent severe, without psychosis: Status: Acute Code(s): F33.2 - Major depressive disorder, recurrent severe without psychotic features Assessment and Plan: Patient is agreeable to stopping Abilify and starting risperidone. She is concerned regarding her blood pressure, and wants to start at very small dose of Risperdal. (2) NIURKA (generalized anxiety disorder): Status: Acute Code(s): F41.1 - Generalized anxiety disorder (3) PTSD (post-traumatic stress disorder): Status: Acute Code(s): F43.10 - Post-traumatic stress disorder, unspecified Assessment and Plan: 1. Lower abilify to 5mg daily X 4 days, then d/c. 2. Start risperdal 0.25mg at bedtime tonight, and after 2 days, increase dose to 0.5mg at bedtime. 3. Plan is to increase risperidone dose Saturday if tolerating well. 4. Scripts sent, including refill for Effexor XR 37.5 Patient educated on: diagnosis, medication risk/benefits and therapeutic strategies Informed Consent: understands Reason for contiued partial hosp. stay Substantial Risk for: inability to function and med/psych decompensation Certification I certify that partial hospital treatment is medically necessary due to the symptoms and problems resulting from the patient's mental illness and the failure to treat the patient at the partial hospital level of care would likely result in the patient requiring inpatient psychiatric care which could not be prevented at a less intensive level of care. Greater than 50% of the session was spent on counseling and/or coordination of care Discharge Plan Discharge Attending provider: Tyrell Dyson Medications: New risperidone 0.5 mg tablet 0.5 mg PO BEDTIME Qty: 14 RF: 0 venlafaxine [Effexor XR] 37.5 mg capsule,extended release 24hr 37.5 mg PO DAILY 14 Days Qty: 14 RF: 0 Discontinued aripiprazole [Abilify] 10 mg tablet 10 mg PO BEDTIME RF: 0 No Action clonidine HCl 0.1 mg tablet 1 tab PO TID Qty: 0 RF: 0 venlafaxine 150 mg capsule,extended release 24hr 1 cap PO DAILY 30 Days Qty: 30 RF: 0 mirtazapine [Remeron] 30 mg tablet 30 mg PO BEDTIME 30 Days Qty: 30 RF: 0 clonazepam 1 mg tablet 1 tab PO TID PRN (Reason: anxiety) 7 Days Qty: 21 RF: 0 hydroxyzine HCl 50 mg tablet 100 mg PO BEDTIME PRN (Reason: anxiety/sleep) RF: 0 Telehealth Telehealth Location of provider rendering services: practice address Location of patient: address on file Patient Identification confirmed using: Name, : Yes Telehealth method: video Patient verbally consented to treatment: Yes Patient verbally consented to billing insurance company: Yes Patient informed of any privacy concerns related to visit: Yes Time spent with patient (mins): 15
--- NOTE | 2021-06-12 17:13 | HO.PHPPROGNO ---
Subjective Subjective Date of Service: 06/12/21 Reason For Visit: MDD, NIURKA, PTSD Subjective Notes: [place] Warning Guardianship: No Medical Problems Affecting Mental Status: Yes (symptoms of a UTI) Interim History: Germania reports that she woke up this morning with urinary discomfort and dryness. She states that since she has begun taking Effexor in August of 2020 she has experienced several urinary tract infections. She reports that she took her last dose of Abilify last night. She states that she woke up Saturday morning, feeling confused, like she did not know who she was and it made her distraught. She says that it took about 10 minutes to ?come out of it ?. She also reports that her blood pressure has been running fairly low, with 90s over 50s some nights. She reports that she has been checking it 3 times a day. When asked if she takes her blood pressure before after her medications, she stated that she checks it afterwards. She was encouraged to check it before she takes her medications, as she takes both Klonopin and clonidine together. She denies any thoughts of harm to self or others at this time, no safety concerns. She does report ongoing symptoms of depression, along with anxiety. She reports that yesterday she was ?feeling really defeated . She also reports that she thinks she will need more time away from work, and was enquiring about receiving documentation from this program. Medication Compliance: Yes Side effects from medications: No Attending Groups: Yes Review of Systems Acute medical concerns: No Medical Review of Systems: changed Review of Systems Review of Systems A full review of systems was completed and was negative with the exception of pertinent positives noted in history of the presenting illness, along with complaints of urinary pain and vaginal dryness this morning. Genitourinary: Reports dysuria and Reports vaginal dryness Comments: Patient reports she feels as if she has a UTI at this time. Mental Status Exam Mental Status Exam Narrative: Well-developed, well-nourished female, no apparent distress. Alert and oriented x4. Appears stated age. Well groomed, appropriately dressed. No involuntary movements noted, motor activity calm, posture within normal limits. Manner and behavior anxious but cooperative. Speech speech was fluent, articulate, unimpaired. Mood and affect anxious, depressed. Thought process and associations were goal-directed, linear. Thought content normal, linear, future oriented. Attention and cognition appropriate. No evidence of delusional thought or any type of hallucinations at this time. Patient denies any thoughts of harm to self or others. Patient appears to be reliable historian. Judgment and insight continue fair. Ambulation not observed. Diagnostics Vital Signs (24Hr): Body Mass Index 46.7 Assessment & Plan Assessment & Plan (1) MDD (major depressive disorder), recurrent severe, without psychosis: Status: Acute Code(s): F33.2 - Major depressive disorder, recurrent severe without psychotic features Assessment and Plan: Patient reports she has completed Abilify yesterday. She has been taking the Risperdal 0.5 mg at bedtime. She reports vaginal dryness, but is not sure if it is related to a possible UTI or to the Risperdal. She is dropping off a specimen at her lab today to rule out UTI. She denies any thoughts of harm to self or others, but does endorse ongoing depressive symptoms, including feeling ?really defeated ?. She is willing to trial increase in Risperdal to 0.5 mg b.i.d. (2) NIURKA (generalized anxiety disorder): Status: Acute Code(s): F41.1 - Generalized anxiety disorder Assessment and Plan: Patient reports that she has been feeling her blood pressure is running too low, and that may be due to some of her anxiety medication. She does report that she continues with some anxious feelings, although they are lessened. A discussion of medications in sued, including dosing and scheduling of both clonidine and Klonopin. Patient reports she has been taking Klonopin consistently for the past 3 years, and that she feels it is working well. We discussed clonidine, and patient is considering either dropping 1 of the 3 doses during the day, or trying a half tab t.i.d.. She has decided that she would prefer to try a half tab t.i.d. at this time. (3) PTSD (post-traumatic stress disorder): Status: Acute Code(s): F43.10 - Post-traumatic stress disorder, unspecified Assessment and Plan: Patient reports waking up Saturday morning feeling confused, as if she were in a dissociative state and did not know who she was. She states that it did resolve after 10 minutes. Assessment and Plan: 1. Increase Risperdal to 0.5 mg b.i.d.. 2. Decrease clonidine to 0.05mg t.i.d. 3. Will see patient either Saturday or to reassess and for further medication titration. 4. No refills needed today as patient has adequate supply at this time. Patient educated on: diagnosis, medication risk/benefits and therapeutic strategies Informed Consent: understands Reason for contiued partial hosp. stay Substantial Risk for: inability to function and med/psych decompensation Certification I certify that partial hospital treatment is medically necessary due to the symptoms and problems resulting from the patient's mental illness and the failure to treat the patient at the partial hospital level of care would likely result in the patient requiring inpatient psychiatric care which could not be prevented at a less intensive level of care. Greater than 50% of the session was spent on counseling and/or coordination of care Discharge Plan Discharge Attending provider: Tyrell Dyson Medications: New risperidone 0.5 mg tablet 0.5 mg PO BEDTIME Qty: 14 RF: 0 venlafaxine [Effexor XR] 37.5 mg capsule,extended release 24hr 37.5 mg PO DAILY 14 Days Qty: 14 RF: 0 Discontinued aripiprazole [Abilify] 10 mg tablet 10 mg PO BEDTIME RF: 0 No Action clonidine HCl 0.1 mg tablet 1 tab PO TID Qty: 0 RF: 0 venlafaxine 150 mg capsule,extended release 24hr 1 cap PO DAILY 30 Days Qty: 30 RF: 0 mirtazapine [Remeron] 30 mg tablet 30 mg PO BEDTIME 30 Days Qty: 30 RF: 0 clonazepam 1 mg tablet 1 tab PO TID PRN (Reason: anxiety) 7 Days Qty: 21 RF: 0 hydroxyzine HCl 50 mg tablet 100 mg PO BEDTIME PRN (Reason: anxiety/sleep) RF: 0 Telehealth Telehealth Location of provider rendering services: practice address Location of patient: address on file Patient Identification confirmed using: Name, : Yes Telehealth method: video Patient verbally consented to treatment: Yes Patient verbally consented to billing insurance company: Yes Patient informed of any privacy concerns related to visit: Yes Time spent with patient (mins): 15
--- NOTE | 2021-06-14 18:47 | HO.PHPPROGNO ---
Subjective Subjective Date of Service: 06/14/21 Reason For Visit: MDD, NIURKA, PTSD Guardianship: No Medical Problems Affecting Mental Status: No Interim History: [place] and reports feeling increased anxiety and depressive symptoms today. Reports that she feels she may need increase in antipsychotic medication, as she is having intrusive thoughts, flashbacks, dissociative episodes, difficulty concentrating, and much difficulty functioning in daily tasks. Denies active SI or self-harm at this time, states ?I just feel very tired . She reports that she is having much difficulty functioning, and believes she would do better if she could remain in this program, as it requires accountability and structure to her day. She states that although she is not suicidal today, she has had passive SI, and is afraid intrusive thoughts as well as SI returning more severely. Patient has had several recent medication changes including switching atypical antipsychotics, and is currently involved in cross titration at this time. She also has recently lowered dose of t.i.d. clonidine, which may be adding to her anxiety. Medication Compliance: Yes Side effects from medications: No Attending Groups: Yes Review of Systems Acute medical concerns: No Medical Review of Systems: unchanged Mental Status Exam Mental Status Exam Narrative: Well-developed female, in NAD. Patient Appearance: Well Grooomed, Fatigued and Appropriate Patient Orientation: Person, Place, Time and Situation Level of Consciousness: Awake, Appropriate and Alert Patient Behavior: Appropriate, Cooperative, Anxious and Good Eye Contact Mood Description: Depressed, Anxious and Sad Affect Description: Appropriate, Depressed and Anxious Patient Cognition Impaired: No Ability to Follow Directions: Good Speech Pattern: Clear, Difficulty Finding Words and Soft-Spoken Memory Description: Intact Hallucinations: None Delusions: Not Present Perceptual Disturbances: Depersonalization (Episodes of disassociation.) Thought Process: Intact Thought Content: positive for Intact and positive for Linear Depressive Symptoms: Increased Anxiety, Diff. Making Decisions, Difficulty Sleeping, Crying Spells, Loss of Int. in Activity, Feelings of Worthlessness, Hopelessness, Isolating-Friends/Family, Feelings of Guilt, Unhappiness, Increased Fatigue, Low Self Esteem and Difficulty Concentrating Judgement: Fair Diagnostics Vital Signs (24Hr): Body Mass Index 46.7 Assessment & Plan Assessment & Plan (1) MDD (major depressive disorder), recurrent severe, without psychosis: Status: Acute Code(s): F33.2 - Major depressive disorder, recurrent severe without psychotic features Assessment and Plan: Patient reports increased anxiety and depressive symptoms, as well as PTSD symptoms. Denies SI presently. Consider further medication changes at this time. Patient is agreeable. She states that although she is not suicidal today, she has had passive SI, and is afraid intrusive thoughts as well as SI returning more severely. Patient has had several recent medication changes including switching atypical antipsychotics, and is currently involved in cross titration at this time. She also has recently lowered dose of t.i.d. clonidine from 1mg TID to 0.5 TID, due to blood pressure concersn, which may be adding to her anxiety. (2) PTSD (post-traumatic stress disorder): Status: Acute Code(s): F43.10 - Post-traumatic stress disorder, unspecified (3) NIURKA (generalized anxiety disorder): Status: Acute Code(s): F41.1 - Generalized anxiety disorder Assessment and Plan: 1. Will try increased risperidone in am, from 0.5mg to 1mg, and ocntinue 0-.5mg at bedtime. 2. Continue other medications without changes at this time. 3. Follow-up as in one to two days. Patient educated on: diagnosis, medication risk/benefits and therapeutic strategies Informed Consent: understands Reason for contiued partial hosp. stay Substantial Risk for: inability to function, rapid decompensation and med/psych decompensation Certification I certify that partial hospital treatment is medically necessary due to the symptoms and problems resulting from the patient's mental illness and the failure to treat the patient at the partial hospital level of care would likely result in the patient requiring inpatient psychiatric care which could not be prevented at a less intensive level of care. Greater than 50% of the session was spent on counseling and/or coordination of care Discharge Plan Discharge Attending provider: Tyrell Dyson Medications: New venlafaxine [Effexor XR] 37.5 mg capsule,extended release 24hr 37.5 mg PO DAILY 14 Days Qty: 14 RF: 0 risperidone 0.5 mg tablet 0.5 mg PO BID Qty: 28 RF: 0 Discontinued aripiprazole [Abilify] 10 mg tablet 10 mg PO BEDTIME RF: 0 No Action clonidine HCl 0.1 mg tablet 1 tab PO TID Qty: 0 RF: 0 venlafaxine 150 mg capsule,extended release 24hr 1 cap PO DAILY 30 Days Qty: 30 RF: 0 mirtazapine [Remeron] 30 mg tablet 30 mg PO BEDTIME 30 Days Qty: 30 RF: 0 clonazepam 1 mg tablet 1 tab PO TID PRN (Reason: anxiety) 7 Days Qty: 21 RF: 0 hydroxyzine HCl 50 mg tablet 100 mg PO BEDTIME PRN (Reason: anxiety/sleep) RF: 0 Telehealth Telehealth Location of provider rendering services: practice address Location of patient: address on file Patient Identification confirmed using: Name, : Yes Telehealth method: video Patient verbally consented to treatment: Yes Patient verbally consented to billing insurance company: Yes Patient informed of any privacy concerns related to visit: Yes Time spent with patient (mins): 15
--- NOTE | 2021-06-15 15:29 | P.PNPSP_ITS ---
Subjective Subjective Date of Service: 06/15/21 Reason For Visit: MDD, NIURKA, PTSD Subjective Notes: [place] Warning Guardianship: No Medical Problems Affecting Mental Status: No Interim History: Germania reports feeling ?like my head it is in my butt?. When asked to explain further, she stated ?I just want to cry, I just want to feel better. I am not thinking clearly. Describes feeling increased symptoms of anxiety and depression. Describes symptoms of disassociation and derealization. Denies thoughts of harm to self or others at this time, but states I feel ?disconnected ?. Denies nightmares. States, ?I just want to curl up and go to sleep right now ?. She reports she took risperidone 0.5mg at bedtime today, and took risperidone 1mg this am. She states that after taking the risperidone, she ?felt like so mebody pulled the carpet out from under me ?. She is not sure if this is related to the medication changes, or to meeting with the EMDR therapist earlier this week. Medication Compliance: Yes Side effects from medications: No Attending Groups: Yes Review of Systems Acute medical concerns: No Medical Review of Systems: unchanged Mental Status Exam Mental Status Exam Narrative: Well-developed, overweight female, appears stated age. Patient Appearance: Well Grooomed, Fatigued and Appropriate Patient Orientation: Person, Place, Time and Situation Level of Consciousness: Awake and Appropriate Patient Behavior: Appropriate, Cooperative and Good Eye Contact Mood Description: Appropriate, Depressed and Anxious Affect Description: Appropriate, Depressed and Anxious Patient Cognition Impaired: No Ability to Follow Directions: Excellent Speech Pattern: Clear, Appropriate and Coherent Memory Description: Intact Hallucinations: None Delusions: Not Present Perceptual Disturbances: Depersonalization and Derealization Thought Process: Intact, Goal Oriented and Linear Thought Content: positive for Intact and positive for Obsessional Thoughts (intrusive thoughts. ) Depressive Symptoms: Increased Anxiety, Diff. Making Decisions, Difficulty Sleeping, Crying Spells, Loss of Int. in Activity, Feelings of Worthlessness, Isolating-Friends/Family, Feelings of Guilt, Unhappiness, Increased Fatigue and Difficulty Concentrating Judgement: Fair Diagnostics Vital Signs (24Hr): Body Mass Index 46.7 Assessment & Plan Assessment & Plan (1) MDD (major depressive disorder), recurrent severe, without psychosis: Status: Acute Code(s): F33.2 - Major depressive disorder, recurrent severe without psychotic features Assessment and Plan: Patient presents with increased symptoms of depression and anxiety, mood dysregulation. Discuss medication options, including possible changes to effexor, risperidone. Risks and benefits of each medication change discussed fully. She plans to continue at Effexor 187.5 mg daily at this time. She would like to try lowering the risperdal to 0.5mg BID for now. We discussed as to whether patient feels she may benefit from a higher level of care at this time. She states that she does not feel she needs to go inpatient right now. Client does not present with safety concerns at this time, as she reports she is not having thoughts of harm to self or others. Patient was encouraged to call crisis when feeling overwhelmed over holiday weekend. She was in agreement with this plan. We discussed any further medication changes. With client's permission I did discuss further with her outpatient psychiatrist. Suggestions included DC Effexor and try another antidepressant, adding low-dose Seroquel, lithium trial. Potential medication changes to be discussed with client during next visit. (2) NIURKA (generalized anxiety disorder): Status: Acute Code(s): F41.1 - Generalized anxiety disorder (3) PTSD (post-traumatic stress disorder): Status: Acute Code(s): F43.10 - Post-traumatic stress disorder, unspecified Assessment and Plan: Patient is considering not participating in EMDR, as she believes it is causing increased startle response, intrusive thoughts, feeling dysregulated. She was encouraged to discuss further with therapy providers. Assessment and Plan: 1. Risperidone 0.5mg BID. 2. Continue other medications as prescribed. 3. Follow-up with patient Saturday06/20/21, or tomorrow if continues to decompensate. Patient educated on: diagnosis, medication risk/benefits and therapeutic strategies Informed Consent: understands Reason for contiued partial hosp. stay Substantial Risk for: inability to function, rapid decompensation and med/psych decompensation Certification I certify that partial hospital treatment is medically necessary due to the symptoms and problems resulting from the patient's mental illness and the failure to treat the patient at the partial hospital level of care would likely result in the patient requiring inpatient psychiatric care which could not be prevented at a less intensive level of care. Greater than 50% of the session was spent on counseling and/or coordination of care Discharge Plan Discharge Attending provider: Tyrell Dyson Medications: New venlafaxine [Effexor XR] 37.5 mg capsule,extended release 24hr 37.5 mg PO DAILY 14 Days Qty: 14 RF: 0 risperidone 0.5 mg tablet 0.5 mg PO BID Qty: 28 RF: 0 Discontinued aripiprazole [Abilify] 10 mg tablet 10 mg PO BEDTIME RF: 0 No Action clonidine HCl 0.1 mg tablet 1 tab PO TID Qty: 0 RF: 0 venlafaxine 150 mg capsule,extended release 24hr 1 cap PO DAILY 30 Days Qty: 30 RF: 0 mirtazapine [Remeron] 30 mg tablet 30 mg PO BEDTIME 30 Days Qty: 30 RF: 0 clonazepam 1 mg tablet 1 tab PO TID PRN (Reason: anxiety) 7 Days Qty: 21 RF: 0 hydroxyzine HCl 50 mg tablet 100 mg PO BEDTIME PRN (Reason: anxiety/sleep) RF: 0 Telehealth Telehealth Location of provider rendering services: practice address Location of patient: address on file Patient Identification confirmed using: Name, : Yes Telehealth method: video Patient verbally consented to treatment: Yes Patient verbally consented to billing insurance company: Yes Patient informed of any privacy concerns related to visit: Yes Time spent with patient (mins): 15
--- NOTE | 2021-06-20 11:42 | P.PNPSP_ITS ---
Subjective Subjective Date of Service: 06/20/21 Reason For Visit: MDD, NIURKA, PTSD Subjective Notes: [place] Warning and Conditional Voluntary Healthcare Proxy: No Guardianship: No Medical Problems Affecting Mental Status: No Interim History: Amie is a 56-year-old single female with no children who self-referred to [facility] on the advice of her therapist and psychiatrist, because of an increase in depression and anxiety symptoms, also experiencing increased PTSD symptoms. Past medication trials include Prozac, Wellbutrin, lithium, gabapentin, lamictal, abilify (15 mg was agitating, recently switched to risperdal during this [facility] admission).? 06/20: I evaluated the pt this afternoon and upon interview she reports she has continued on the lower clonidine dose of 0.05 mg TID and effexor 187.5 mg. Denies SE on increased effexor dose (in past felt blurry vision on higher dose). Does not think clonidine is helping with anxiety anymore but has not stopped due to fear of rebound sx. Says she is ?okay,? but ?still depressed.? Denies psychotic sx, ?Im not hearing voices or anything like that.? Endorses sx of increased anxiety, endorses sx of dissocuation, ?anxiety is there.? On klonopin 1 mg TID but she is likely tolerant to it at this point. Says she doesn't like being alone, this increases anxiety at bedtime. Has also been anxious about having to go back to work. She filed for FMLA but was supposed to return to work today, asked for a letter for work to excuse her for another two weeks as she would like to continue with [facility]. Says ?yesterday I didnt want to get out of bed. ? Sleep has been ?okay,? says remeron helps. No nightmares. Daytime energy is low. Endorses sx of avolition, anhedonia i.e. has dishes in the sink piled up, feels ?disgusted with myself,? still feels like her ?self confidence is blown.? Says risperdal has helped ?a little bit? with anxiety. 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 Medication Compliance: Yes Side effects from medications: No Attending Groups: Yes Review of Systems Acute medical concerns: No Medical Review of Systems: unchanged Mental Status Exam Mental Status Exam Narrative: Well developed female, in NAD. Well groomed, dressed appropriately. Sitting up in chair. Level of attention appropriate to encounter. A&OX4. No involuntary movements noted, motor activity calm. Speech fluent, unimpaired. Describes mood as anxious, depressed . Affect congruent, although much improved.? Reports does not feel depressed at this time, the continues feeling nervous, with excessive worry at times, difficulty relaxing.? Denies any panic attacks.? Denies PTSD symptoms at this time. Thought process and associations linear, goal-directed.? Thought content normal, future oriented.? No evidence of any type of delusions or hallucinations noted or reported.? Denies any type of thoughts of harm to self or others.? Reliable historian.? Judgment and insight appear intact at this time.? Ambulation not observed. Patient Appearance:?Well Grooomed and Appropriate Patient Orientation:?Person, Place, Time and Situation Diagnostics Vital Signs (24Hr): Body Mass Index 46.7 Assessment & Plan Assessment & Plan (1) MDD (major depressive disorder), recurrent severe, without psychosis: Status: Acute Code(s): F33.2 - Major depressive disorder, recurrent severe without psychotic features Assessment and Plan: 1. Continue Risperidone 0.5mg BID for mood stability, sx of derealization (switched from abilify during this [facility] admission) 2. Recommended discontinuing clonidine 0.05 mg TID when she is due for her next refill due to lack of efficacy, not likely to have rebound effects at this dose. 3. Start lamictal 25 mg QD for sx of depression, anxiety, and for mood stability. Reports past benefit on this medication. Reviewed risks and benefits, including SJS and discontinuing for rash. May increase to 50 mg after 2 weeks. 4. Continue Effexor XR 187.5 mg daily for sx of anxiety, depression, PTSD Monitor response to medications. Discharge on stabilization. Patient seen. Chart reviewed. Discussed with team. Certification I certify that partial hospital treatment is medically necessary due to the symptoms and problems resulting from the patient's mental illness and the failure to treat the patient at the partial hospital level of care would likely result in the patient requiring inpatient psychiatric care which could not be prevented at a less intensive level of care. Greater than 50% of the session was spent on counseling and/or coordination of care Discharge Plan Discharge Attending provider: Tyrell Dyson Additional Instructions: Anny RICE, 07/02/2021 , Dr Xuan Gallego 07/14/2021 Medications: New risperidone 0.5 mg tablet 0.5 mg PO BID Qty: 28 RF: 0 lamotrigine [Lamictal] 25 mg tablet 25 mg PO DAILY 30 Days Qty: 45 RF: 0 Continued venlafaxine [Effexor XR] 37.5 mg capsule,extended release 24hr 37.5 mg PO DAILY 30 Days Qty: 30 RF: 0 Discontinued clonidine HCl 0.1 mg tablet 1 tab PO TID Qty: 0 RF: 0 aripiprazole [Abilify] 10 mg tablet 10 mg PO BEDTIME RF: 0 No Action venlafaxine 150 mg capsule,extended release 24hr 1 cap PO DAILY 30 Days Qty: 30 RF: 0 mirtazapine [Remeron] 30 mg tablet 30 mg PO BEDTIME 30 Days Qty: 30 RF: 0 clonazepam 1 mg tablet 1 tab PO TID PRN (Reason: anxiety) 7 Days Qty: 21 RF: 0 hydroxyzine HCl 50 mg tablet 100 mg PO BEDTIME PRN (Reason: anxiety/sleep) RF: 0 Stand Alone Forms: Patient Portal Discharge page
--- NOTE | 2021-06-26 12:18 | P.PNPSP_ITS ---
Subjective Subjective Date of Service: 06/26/21 Reason For Visit: MDD, NIURKA, PTSD Subjective Notes: [place] Warning Guardianship: No Medical Problems Affecting Mental Status: No Interim History: Germania reports she feels that the added lamictal is working well. She describes her depressive symptoms as much improved. Denies any type of thoughts of harm to self or others. Denies any PTSD symptoms today, such as flashbacks, hyperousal or hypervigalence. Describes mood as good, but still anxious . Relates the anxiety to concern about returning to work later this month, and being able to manage at work, in relation to her underlying depression, anxiety, and PTSD. She does state however that she feels she will manage okay. No concerns with sleep, appetite, or safety. She says she believes she feels that her mood is more stabilized now than when she began PHP several weeks ago, and more prepared to discharge and return to work. Medication Compliance: Yes Side effects from medications: No Attending Groups: Yes Review of Systems Acute medical concerns: No Medical Review of Systems: unchanged Review of Systems Review of Systems Yes all other systems are reviewed and are negative Mental Status Exam Mental Status Exam Narrative: Well developed female, in NAD. Well groomed, dressed appropriately. Sitting up in chair. Level of attention appropriate to encounter. A&OX4. No involuntary movements noted, motor activity calm. Speech fluent, unimpaired. Describes mood as anxiuos . Affect congruent, although much improved. Reports does not feel depressed at this time, the continues feeling nervous, with excessive worry at times, difficulty relaxing. Denies any panic attacks. Denies PTSD symptoms at this time. Thought process and associations linear, goal-directed. Thought content normal, future oriented. No evidence of any type of delusions or hallucinations noted or reported. Denies any type of thoughts of harm to self or others. Reliable historian. Judgment and insight appear intact at this time. Ambulation not observed. Patient Appearance: Well Grooomed and Appropriate Patient Orientation: Person, Place, Time and Situation Diagnostics Vital Signs (24Hr): Body Mass Index 46.7 Assessment & Plan Assessment & Plan (1) MDD (major depressive disorder), recurrent severe, without psychosis: Status: Acute Code(s): F33.2 - Major depressive disorder, recurrent severe without psychotic features Assessment and Plan: Patient reports feeling depression is under control at this time, attributes in part to starting Lamictal. Reviewed risk and benefits of medication, including potential side effects. Patient stated that she understood. Patient denies any type of rash at this time. (2) NIURKA (generalized anxiety disorder): Status: Acute Code(s): F41.1 - Generalized anxiety disorder Assessment and Plan: Patient reports some ongoing anxiety, especially related to returning to work. Although she does states she feels her mood is more stable and that she is confident she will be able to turn to work without incident. (3) PTSD (post-traumatic stress disorder): Status: Acute Code(s): F43.10 - Post-traumatic stress disorder, unspecified Assessment and Plan: Patient denies any overt symptoms of PTSD at this time. She continues taking risperidone as ordered, with positive affect regarding any type of intrusive me mories. No type of EPS noted or reported. Assessment and Plan: 1. Patient started lamictal 25mg on 06/21/21. Plan is to continue with lamictal 25mg for one more week, then will increase to lamictal 50mg daily on 07/05, for 2 weeks. She will follow-up with outpatient provider regarding futher titration. 2. Patient is currently tapering down off of clonidine to then d/c within the next week. 3. Continue all other medications as ordered. 4. Will follow-up with outpatient prescriber going forward. Patient educated on: diagnosis, medication risk/benefits and therapeutic strategies Informed Consent: understands Reason for contiued partial hosp. stay Substantial Risk for: stable for discharge Certification I certify that partial hospital treatment is medically necessary due to the symptoms and problems resulting from the patient's mental illness and the failure to treat the patient at the partial hospital level of care would likely result in the patient requiring inpatient psychiatric care which could not be prevented at a less intensive level of care. Greater than 50% of the session was spent on counseling and/or coordination of care Discharge Plan Discharge Attending provider: Tyrell Dyson Medications: New risperidone 0.5 mg tablet 0.5 mg PO BID Qty: 28 RF: 0 lamotrigine [Lamictal] 25 mg tablet 25 mg PO DAILY 30 Days Qty: 45 RF: 0 Continued venlafaxine [Effexor XR] 37.5 mg capsule,extended release 24hr 37.5 mg PO DAILY 30 Days Qty: 30 RF: 0 Discontinued clonidine HCl 0.1 mg tablet 1 tab PO TID Qty: 0 RF: 0 aripiprazole [Abilify] 10 mg tablet 10 mg PO BEDTIME RF: 0 No Action venlafaxine 150 mg capsule,extended release 24hr 1 cap PO DAILY 30 Days Qty: 30 RF: 0 mirtazapine [Remeron] 30 mg tablet 30 mg PO BEDTIME 30 Days Qty: 30 RF: 0 clonazepam 1 mg tablet 1 tab PO TID PRN (Reason: anxiety) 7 Days Qty: 21 RF: 0 hydroxyzine HCl 50 mg tablet 100 mg PO BEDTIME PRN (Reason: anxiety/sleep) RF: 0 Stand Alone Forms: Patient Portal Discharge page Telehealth Telehealth Location of provider rendering services: practice address Location of patient: address on file Patient Identification confirmed using: Name, : Yes Telehealth method: video Patient verbally consented to treatment: Yes Patient verbally consented to billing insurance company: Yes Patient informed of any privacy concerns related to visit: Yes Time spent with patient (mins): 15
--- NOTE | 2021-06-26 12:56 | PC.NURSE ---
Patient scheduled to discharge from [facility] today. Reviewed patient medication with patient. Patient reports she is taking medications as prescribed. Medication education provided. Patient feeling ready to discharge today. Affect is much brighter, decreased depression. Patient denied thoughts to harm self. No safety concerns.
--- NOTE | 2021-06-26 14:24 | PC.NURSE ---
Left a discharge message with Anny Argueta PHD.
== END 2021-06-27 07:16 | disposition home or self-care (01) ==
LOC: HO.PHPA 10:00
PROVIDERS: Visit Provider Psychiatry & Neurology Psychiatry
DX: F33.2 Major depressive disorder, recurrent severe without psychotic features (principal); F43.10 Post-traumatic stress disorder, unspecified; F41.1 Generalized anxiety disorder; Z79.899 Other long term (current) drug therapy
CPT/HCPCS: 90791; 90853

== ENCOUNTER 2021-08-13 14:59 | Inpatient (IN) | payer OTHER, SELFPAY ==
[2021-08-13] VITALS (8 sets, daily range): BP systolic 114–148; BP diastolic 76–98; PULSE 91–109; RESP 9–24; TEMP -13.1–36.8; O2SAT 93–96; BMI 47.2
--- NOTE | 2021-08-13 | ECG_ITS ---
Test Reason : PAIN W/ INSPIRATION Blood Pressure : / mmHG Vent. Rate : 097 BPM Atrial Rate : 097 BPM P-R Int : 144 ms QRS Dur : 080 ms QT Int : 350 ms P-R-T Axes : 039 079 019 degrees QTc Int : 444 ms Poor data quality Normal sinus rhythm RSR' or QR pattern in V1 suggests right ventricular conduction delay Nonspecific ST abnormality Abnormal ECG Heart rate has increased ST more depressed Inferior leads Lateral leads Referred By: Rita Casper Electronically Signed By:NANDO ROTHMAN MD
--- NOTE | ~2021-08-13 | XR_ITS ---
EXAMINATION: XR CHEST CLINICAL INFORMATION: Shortness of breath COMPARISON: None TECHNIQUE: Frontal view of the chest was obtained. 3:28 PM FINDINGS: No significant abnormality is noted involving the heart, lungs, mediastinum, bony thorax or soft tissues. XR/XR chest 1V IMPRESSION: Unremarkable examination.
--- NOTE | ~2021-08-13 | CT_ITS ---
EXAMINATION: CT ANGIOGRAM CHEST WITH AND WITHOUT CONTRAST (CT PULMONARY ANGIOGRAM FOR PE) CLINICAL INFORMATION: Shortness of breath. Left lower extremity swelling. Elevated D-dimer. Deep vein thrombosis. COMPARISON: Chest radiograph done earlier the same day. TECHNIQUE: Prior to contrast administration, noncontrast localization images were obtained. Subsequently, multidetector volumetric imaging was performed from the thoracic inlet to below the diaphragms following the administration of 80 mL Omnipaque 350 intravenous contrast. No contrast reaction reported. Sagittal, coronal, and MIP oblique sagittal reformatted images were obtained on the CT workstation, uploaded to PACS, and reviewed. This CT examination was performed using dose optimization techniques as appropriate, variously including the following: *Automated exposure control. *Adjustment of mA and/or kV according to patient size (this includes techniques or standardized protocols for targeted exams where dose is matched to indication/reason for exam; i.e. extremities or head). *Use of iterative reconstruction technique. Total exam dose-length product 409 mGy-cm. FINDINGS: QUALITY OF STUDY/CONTRAST BOLUS: Satisfactory. PULMONARY ARTERIES: There are extensive bilateral pulmonary emboli within the right and left main pulmonary arteries extending into the segmental and subsegmental pulmonary arteries. No central pulmonary arterial dilatation. THORACIC AORTA: No aneurysm or dissection. LUNG: No focal consolidation, nodules or masses. PLEURA: No pleural effusion or pneumothorax. MEDIASTINUM: Normal heart size. No pericardial effusion. No hilar or mediastinal lymphadenopathy. There is septal bowing and prominence of the right ventricle and right atrium, consistent with right heart strain. CHEST WALL/AXILLA: No axillary or internal mammary lymphadenopathy. OSSEOUS STRUCTURES: No acute or suspicious osseous abnormality. UPPER ABDOMEN: Unremarkable. Mild reflux of contrast into the hepatic veins, which could suggest elevated right heart pressures. CT/CT angio chest PE protocol IMPRESSION: 1. Extensive bilateral pulmonary emboli involving the central right and left pulmonary arteries and extending into the segmental and subsegmental pulmonary arteries. Prominence of the right ventricle and right atrium with septal bowing, indicating right heart strain. Mild reflux of contrast into the hepatic veins, suggesting elevated right heart pressures. 2. No airspace consolidation. VTE: Positive. This critical result was discussed with Rita Casper at 7:26 PM on 08/13/2021 and it was ascertained that the content and urgency of the report was understood at the time of direct communication.
--- NOTE | ~2021-08-13 | US_ITS ---
EXAMINATION: US VENOUS WITH DOPPLER LOWER EXTREMITY, LEFT CLINICAL INFORMATION: Left lower extremity/calf swelling. Shortness of breath. COMPARISON: None TECHNIQUE: Ultrasound of the deep veins is performed from the hip to the calf with compression sonography and color and pulse Doppler assessment. Spectral analysis with color-flow imaging is performed. FINDINGS: Focal, non-occlusive thrombus within the left common femoral vein. Occlusive thrombus within the profunda femoral vein and superficial femoral vein proximally. This extends distally through the left lower extremity including the femoral, popliteal, posterior tibial, and peroneal veins. No Little's cyst. US/US venous duplex LE IMPRESSION: Occlusive thrombus throughout the left lower extremity including the profunda femoral vein, superficial femoral vein, femoral vein, popliteal vein, posterior tibial vein, and peroneal vein. This critical result was discussed with Rita Casper at 7:07 pm on 08/13/2021 and it was ascertained that the content and urgency of the report was understood at the time of direct communication.
[2021-08-13 15:23] LABS: Basophils Percent Auto 0.4 % (0-2); Eosinophils Absolute Auto 0.1 X10*3/uL (0.0-0.4); Eosinophils Percent Auto 1.3 % (0-4); Hematocrit 44.7 % (37.0-47.0); Imm Gran Abs Auto 0.08 X10*3/uL (0.00-0.03); Imm Gran Pct Auto 0.7 % (0.0-0.4); Lymphocytes Absolute Auto 2.6 X10*3/uL (1.2-4.9); Lymphocytes Percent Auto 24.1 % (20-40); MANUAL DIFF FLAG NO; Mean Corpuscular HGB Conc 33.6 g/dl (31.0-35.0); Mean Corpuscular Hemoglobin 29.2 pg (27.0-33.0); Mean Platelet Volume 9.1 fL (9.4-12.3); Monocytes Absolute Auto 0.8 X10*3/uL (0.1-1.2); Monocytes Percent Auto 6.9 % (2-11); Neutrophils Absolute Auto 7.23 x10*3/uL (2.0-8.3); Neutrophils Percent Auto 66.6 % (45-73); Platelet Count 248 X10*3/uL (160-400); Red Blood Count 5.14 X10*6/uL (4.20-5.50); White Blood Count 10.9 X10*3/uL (4.8-10.8)
[2021-08-13 15:42] LABS: Alanine Aminotransferase 7 U/L (0-31); Albumin Level 4.1 g/dL (3.5-5.0); Alkaline Phosphatase 113 U/L (39-117); Anion Gap 14 (12-20); Aspartate Amino Transferase 23 U/L (5-31); Bilirubin Total 0.3 mg/dL (0.0-1.0); Blood Urea Nitrogen 14 mg/dL (9-16); Calcium 9.3 mg/dL (8.4-10.2); Carbon Dioxide 24 mmol/L (22-29); Chloride 107 mmol/L (96-108); Creatinine Clr Calc Pharmacy 67.9; Estimated Glomerular Filt Rate 48; Glucose Random 109 mg/dL (60-115); Potassium 4.4 mmol/L (3.3-5.1); Sodium 141 mmol/L (135-145); Total Protein 7.1 g/dL (6.5-8.0)
[2021-08-13 16:05] LABS: Influenza A PCR NEGATIVE (Negative); Influenza B PCR NEGATIVE (Negative); Resp Syncy Virus RNA Qual PCR NEGATIVE (Negative); SARS COV2 PCR INHOUSE NEGATIVE (Negative)
--- NOTE | 2021-08-13 17:25 | ED.SOB ---
HPI - SOB/Dyspnea General Chief Complaint: Dyspnea Stated Complaint: sob since saturday Time Seen by Provider: 08/13/21 17:14 Source: patient Mode of arrival: ambulatory History of Present Illness HPI Narrative: 56-year-old female with a past medical history of anxiety, depression, GERD, gastric bypass, hysterectomy, HTN, PTSD, sleep apnea, presenting to the ED complaining of exertional dyspnea, SOB, substernal chest pressure, LLE swelling and pain since Saturday. Denies chest pain at present, reports began 8 hours ago however states when takes deep breath feels like tight band around chest. Denies fever, chills, cough, abdominal pain, nausea/vomiting, cigarette smoking, history of blood clots MD elicited complaint: shortness of breath, pain with inspiration and chest pain Related Data Home Medications Medication Instructions Recorded Confirmed hydroxyzine HCl 50 mg tablet 100 mg PO BEDTIME PRN 06/02/21 08/13/21 cefuroxime axetil 250 mg tablet 1 tab PO BID 08/13/21 08/13/21 immun glob G 2 gram/10mL(20 3 ml SUBCUT 08/13/21 %)-prol-IgA 0-50 mcg/mL subcutaneous syrin (Hizentra) Previous Rx's Medication Instructions Recorded venlafaxine 150 mg 1 cap PO DAILY 30 Days #30 cap 03/01/21 capsule,extended release 24 hr mirtazapine 30 mg tablet (Remeron) 30 mg PO BEDTIME 30 Days #30 tab 03/03/21 clonazepam 1 mg tablet 1 tab PO TID PRN 7 Days #21 tab 03/16/21 risperidone 0.5 mg tablet 0.5 mg PO BID #28 tab 06/14/21 lamotrigine 25 mg tablet (Lamictal) 25 mg PO DAILY 30 Days #45 tab 06/20/21 venlafaxine 37.5 mg 37.5 mg PO DAILY 30 Days #30 cap 06/20/21 capsule,extended release 24 hr (Effexor XR) Allergies Allergy/AdvReac Type Severity Reaction Status Date / Time ciprofloxacin Allergy rash Verified 10/25/20 06:38 nitrofurantoin Allergy rash Verified 10/25/20 06:38 [From Macrobid] Sulfa (Sulfonamide Allergy rash Verified 10/25/20 06:38 Antibiotics) quetiapine [From Seroquel] AdvReac suicidal Verified 10/25/20 06:38 ideation Review of Systems Review of Systems: Constitutional: No Fever, No Chills, No Fatigue, No Malaise ENT/Mouth: No Ear Pain, No Nasal Congestion, No sore throat, No Rhinorrhea, No Swallowing Difficulty Eyes: No Eye Pain, No Swelling, No Redness, No Discharge Cardiovascular: + Chest Pain, + SOB, + Dyspnea on Exertion, No Orthopnea, +Edema, No Palpitations Respiratory: No Cough, No Sputum, + Dyspnea Gastrointestinal: No Nausea, No Vomiting, No Diarrhea, No Constipation, No Abdominal pain Genitourinary: No Dysuria, No Urinary Frequency, No Hematuria, No Hesitancy Musculoskeletal: No joint pain, No Myalgias, No Joint Swelling Skin: No Skin Lesions, No rash Neuro: No Weakness, No Numbness, No Dizziness, No Headache Yes all other systems are reviewed and are negative [facility] Past Medical History Attestation statement: The following information was validated with the patient. Medical History Anxiety Common variable immunodeficiency Depression Encounter for colonoscopy following colon polyp removal GERD (gastroesophageal reflux disease) History of sciatica Hypertension PTSD (post-traumatic stress disorder) Sleep apnea Surgical History History of gastric bypass History of hysterectomy Social History Social History Household Members: None Housing: Apartment Do you presently have visiting nurse or other home services: No Alcohol intake: former Patient Tobacco Use Status: Never used Tobacco Use of substances other than those prescribed or required for medical reasons: No Currently Displaying Signs/Symptoms of Drug Intoxication Withdrawal: No Have you been hit, kicked, punched, or otherwise hurt by someone within the past year? If so, by whom?: No Do you feel safe in your current relationship?: No Current Relationship Is there a partner from a previous relationship who is making you feel unsafe now?: No Are you made to feel afraid or neglected: No Advance Directives: No Advance Directives Information Provided: No Do you have thoughts of harming others: None Do you have a plan to hurt others: No Plan Recently lost weight without trying: Unsure Nutrition Risks: No Nutritional Risk Patient : No : No Poor oral hygiene: No service: No Sexual orientation: did not discuss. Physical Exam Vital Signs: Vital Signs: Last Vital Signs Temp 98.1 F 08/14/21 00:00 Pulse 89 08/14/21 00:54 Resp 19 08/14/21 00:54 BP 138/82 08/14/21 00:54 Pulse Ox 94 08/14/21 00:54 Body Mass Index 47.2 Const: General: cooperative, healthy appearing, no acute distress, well developed, alert and awake Orientation/consciousness: patient oriented x3 Limitations: no limitations HENMT: Head: Yes normal to inspection Ears: hearing grossly normal bilaterally General nose exam: Normal external nose present Face and sinus: Yes normal facial exam Eyes: General: appearance normal, both eyes and all related structures EOM: EOMs intact bilaterally Neck: Neck: Yes normal visual inspection and Yes no meningeal signs Resp: Effort & Inspection: normal respiratory effort Auscultation: clear to auscultation bilaterally, no rales, no rhonchi and no wheezes Cardio: Rate: regular rate Heart sounds: S1 normal heart sound present and S2 normal heart sound present GI: Inspection: Yes normal to inspection Palpation (GI): Soft to palpation, nontender, no guarding and not rigid Skin: Rashes: no rashes Wounds: no wounds Neuro: General: patient oriented x3 and no meningeal signs Gait exam (Neuro): Normal gait present Extrem: Other: +LLE edema and calf tenderness Course Course Course Narrative: -1749--mild leukocytosis of 10.9 -COVID-19/influenza/RSV negative XR chest 1V IMPRESSION: Unremarkable examination. -1820-- troponin elevated to 1032.9 patient reports mild substernal chest pressure since yesterday, EKG is nonischemic > will obtain 3hr repeat > Heparin initiated, bolus and drip for NSTEMI/suspected PE -BNP 219. D-dimer 4158 > will obtain CTA. Patient on Hizentra for low IgG, likely cause of thrombosis US venous duplex LE LT IMPRESSION: Occlusive thrombus throughout the left lower extremity including the profunda femoral vein, superficial femoral vein, femoral vein, popliteal vein, posterior tibial vein, and peroneal vein. ? This critical result was discussed with Rita Casper at 7:07 pm on 08/13/2021 and it was ascertained that the content and urgency of the report was understood at the time of direct communication. >> consulted vascular, Dr. Martin will see patient tomorrow, possibly candidate for thrombolysis -repeat troponin 656.8 CT angio chest PE protocol IMPRESSION: 1. Extensive bilateral pulmonary emboli involving the central right and left pulmonary arteries and extending into the segmental and subsegmental pulmonary arteries. Prominence of the right ventricle and right atrium with septal bowing, indicating right heart strain. Mild reflux of contrast into the hepatic veins, suggesting elevated right heart pressures. 2. No airspace consolidation. VTE: Positive. >> case discussed with supervisor phosphoric acid Dr. Bernard, patient will be admitted to ICU MDM - SOB/Dyspnea MDM Narrative Medical decision making narrative: 56-year-old female with a past medical history of anxiety, depression, GERD, gastric bypass, hysterectomy, HTN, PTSD, sleep apnea, presenting to the ED complaining of exertional dyspnea, SOB, substernal chest pressure, LLE swelling and pain since Saturday. On exam initially tachypneic, now tachycardic to 109, NAD, nontoxic appearing, lungs CTA, left lower extremity edema/calf tenderness noted. Concern for CHF vs DVT/PE vs ACS. Lower concern for infectious etiology Plan: EKG, labs, CXR, COVID-19 testing, D-dimer, venous duplex ultrasound, albuterol inhaler, re-evaluate Medical Records Attestation: I reviewed the patient's medical records. Lab Data Attestation: I reviewed the patient's lab results. Result diagrams: 08/13/21 20:25 08/13/21 15:15 Labs: Lab Results 08/13/21 08/13/21 08/13/21 Range/Units 15:15 15:15 15:15 WBC 10.9 H (4.8-10.8) X10*3/uL RBC 5.14 (4.20-5.50) X10*6/uL Hgb 15.0 (12.0-16.0) g/dl Hct 44.7 (37.0-47.0) % MCV 87.0 (80.0-98.0) fL MCH 29.2 (27.0-33.0) pg MCHC 33.6 (31.0-35.0) g/dl RDW 13.0 (11.0-16.0) % Plt Count 248 (160-400) X10*3/uL MPV 9.1 L (9.4-12.3) fL Immature Gran % (Auto) 0.7 H (0.0-0.4) % Neut % (Auto) 66.6 (45-73) % Lymph % (Auto) 24.1 (20-40) % [place] % (Auto) 6.9 (2-11) % Eos % (Auto) 1.3 (0-4) % Baso % (Auto) 0.4 (0-2) % Lymph # (Auto) 2.6 (1.2-4.9) X10*3/uL [place] # (Auto) 0.8 (0.1-1.2) X10*3/uL Eos # (Auto) 0.1 (0.0-0.4) X10*3/uL Baso # (Auto) 0.0 (0.0-0.2) X10*3/uL Abs Immat Gran (auto) 0.08 H (0.00-0.03) X10*3/uL Absolute Neuts (auto) 7.23 (2.0-8.3) x10*3/uL Absolute Nucleated RBC 0.000 (0.0-0.012) X10*3/uL Nucleated RBC % (auto) 0.0 (0.0-0.2) /100WBC PT (9.9-13.0) SEC INR (0.9-1.1) APTT (24.1-38.0) SEC D-Dimer NG/ML Sodium 141 (135-145) mmol/L Potassium 4.4 (3.3-5.1) mmol/L Chloride 107 (96-108) mmol/L Carbon Dioxide 24 (22-29) mmol/L Anion Gap 14 (12-20) BUN 14 (9-16) mg/dL Creatinine 1.18 (0.5-1.4) mg/dL Estim Creat Clear Calc 67.9 Estimated GFR 48 Random Glucose 109 (60-115) mg/dL Calcium 9.3 (8.4-10.2) mg/dL Magnesium 1.9 (1.6-2.6) mg/dL Total Bilirubin 0.3 (0.0-1.0) mg/dL AST 23 (5-31) U/L ALT 7 (0-31) U/L Alkaline Phosphatase 113 D (39-117) U/L Troponin I High Sens (<3.5-17.0) ng/L B-Natriuretic Peptide (<100) pg/mL Total Protein 7.1 (6.5-8.0) g/dL Albumin 4.1 (3.5-5.0) g/dL Influenza Type A (PCR) NEGATIVE (Negative) Influenza Type B (PCR) NEGATIVE (Negative) RSV RNA Qual (PCR) NEGATIVE (Negative) SARS-CoV-2 RNA (RT-PCR) NEGATIVE (Negative) 08/13/21 08/13/21 08/13/21 Range/Units 15:15 17:42 18:51 WBC (4.8-10.8) X10*3/uL RBC (4.20-5.50) X10*6/uL Hgb (12.0-16.0) g/dl Hct (37.0-47.0) % MCV (80.0-98.0) fL MCH (27.0-33.0) pg MCHC (31.0-35.0) g/dl RDW (11.0-16.0) % Plt Count (160-400) X10*3/uL MPV (9.4-12.3) fL Immature Gran % (Auto) (0.0-0.4) % Neut % (Auto) (45-73) % Lymph % (Auto) (20-40) % [place] % (Auto) (2-11) % Eos % (Auto) (0-4) % Baso % (Auto) (0-2) % Lymph # (Auto) (1.2-4.9) X10*3/uL [place] # (Auto) (0.1-1.2) X10*3/uL Eos # (Auto) (0.0-0.4) X10*3/uL Baso # (Auto) (0.0-0.2) X10*3/uL Abs Immat Gran (auto) (0.00-0.03) X10*3/uL Absolute Neuts (auto) (2.0-8.3) x10*3/uL Absolute Nucleated RBC (0.0-0.012) X10*3/uL Nucleated RBC % (auto) (0.0-0.2) /100WBC PT 12.2 (9.9-13.0) SEC INR 1.1 (0.9-1.1) APTT 37.5 (24.1-38.0) SEC D-Dimer 4158 NG/ML Sodium (135-145) mmol/L Potassium (3.3-5.1) mmol/L Chloride (96-108) mmol/L Carbon Dioxide (22-29) mmol/L Anion Gap (12-20) BUN (9-16) mg/dL Creatinine (0.5-1.4) mg/dL Estim Creat Clear Calc Estimated GFR Random Glucose (60-115) mg/dL Calcium (8.4-10.2) mg/dL Magnesium (1.6-2.6) mg/dL Total Bilirubin (0.0-1.0) mg/dL AST (5-31) U/L ALT (0-31) U/L Alkaline Phosphatase (39-117) U/L Troponin I High Sens 1032.9 H* 656.8 H* (<3.5-17.0) ng/L B-Natriuretic Peptide 219 H (<100) pg/mL Total Protein (6.5-8.0) g/dL Albumin (3.5-5.0) g/dL Influenza Type A (PCR) (Negative) Influenza Type B (PCR) (Negative) RSV RNA Qual (PCR) (Negative) SARS-CoV-2 RNA (RT-PCR) (Negative) ECG Data Attestation: I personally reviewed and interpreted this ECG as follows: ECG interpretation date: 08/13/21 ECG interpretation time: 17:46 Interpretation: EKG normal sinus rhythm with rate of 97. Artifact present. FL interval 144. QTC 444 Critical Care Time Critical Care Time Critical Care Time: Yes Total Critical Care Time: 36 Attestation: >35 mins of critical care time was spent evaluating patient, reviewing labs, imaging, speaking to consultants, and re-evaluating patient. Discharge Plan Discharge Clinical Impression: Pulmonary embolism Qualifiers: Pulmonary embolism type: unspecified Chronicity: acute Acute cor pulmonale presence: with acute cor pulmonale Qualified Code(s): I26.09 - Other pulmonary embolism with acute cor pulmonale DVT (deep venous thrombosis) Qualifiers: DVT location: lower extremity Affected thrombotic vein of extremity: unspecified vein of extremity Chronicity: acute Laterality: left Qualified Code(s): I82.402 - Acute embolism and thrombosis of unspecified deep veins of left lower extremity Patient Disposition: Admitted As Inpatient Interventions: Admission Worksheet (ED) Last Done: 08/13/21 22:40 Discharge Date/Time: 08/13/21 22:42
[2021-08-13 17:40] LABS: Magnesium 1.9 mg/dL (1.6-2.6)
[2021-08-13] MEDS: Albuterol Sulfate 90 MCG 8 GM INHALER 4 PUFF INHALE (18:11)
[2021-08-13 18:12] LABS: B Type Natriuretic Peptide 219 pg/mL (<100); Troponin-I High Sensitivity 1032.9 ng/L (<3.5-17.0)
[2021-08-13 18:17] LABS: D Dimer 4158 NG/ML
[2021-08-13 18:50] LABS: INTERNATIONAL NORM RATIO 1.1 (0.9-1.1); Prothrombin Time 12.2 SEC (9.9-13.0)
[2021-08-13 18:53] LABS: Partial Thromboplastin Time 37.5 SEC (24.1-38.0)
[2021-08-13] MEDS: iohexoL 350 MG/ML 100 ML INFUS..BTL IV (19:09)
[2021-08-13 19:21] LABS: Troponin-I High Sensitivity 656.8 ng/L (<3.5-17.0)
[2021-08-13] MEDS: Heparin Sodium,Porcine 5,000 UNIT/ML VIAL 4000 UNIT IVPUSH (19:27)
[2021-08-13] MEDS: Heparin Sodium,Porcine/1/2NS 25,000 UNIT/250 ML IV.SOLN 10 UNIT IVCONT (19:30)
[2021-08-13 20:30] LABS: MANUAL DIFF FLAG NO
[2021-08-13 20:31] LABS: Basophils Absolute Auto 0.1 X10*3/uL (0.0-0.2); Basophils Percent Auto 0.5 % (0-2); Eosinophils Absolute Auto 0.2 X10*3/uL (0.0-0.4); Hematocrit 44.2 % (37.0-47.0); Hemoglobin 14.6 g/dl (12.0-16.0); Imm Gran Abs Auto 0.11 X10*3/uL (0.00-0.03); Imm Gran Pct Auto 0.9 % (0.0-0.4); Lymphocytes Absolute Auto 3.6 X10*3/uL (1.2-4.9); Lymphocytes Percent Auto 29.6 % (20-40); Mean Corpuscular Volume 87.9 fL (80.0-98.0); Mean Platelet Volume 9.1 fL (9.4-12.3); Monocytes Absolute Auto 0.9 X10*3/uL (0.1-1.2); Monocytes Percent Auto 7.1 % (2-11); Neutrophils Absolute Auto 7.32 x10*3/uL (2.0-8.3); Neutrophils Percent Auto 59.9 % (45-73); Platelet Count 231 X10*3/uL (160-400); Red Blood Count 5.03 X10*6/uL (4.20-5.50); Red Cell Distribution Width 13.1 % (11.0-16.0); White Blood Count 12.2 X10*3/uL (4.8-10.8)
--- NOTE | 2021-08-13 20:43 | P.HPCC_ITS ---
History of Present Illness Date of Service: 08/13/21 Attending physician on admission: Loc Bernard Chief Complaint: Dyspnea with exertion This is a 56-year-old female with a past medical history of? anxiety,? depression, GERD, gastric bypass, hysterectomy, and sleep apnea? who presents to the emergency room? with complaints of dyspnea with exertion. ? She also complained of? substernal chest pressure? and left lower extremity edema? since Saturday.? In the emergency room, ? Vital signs were stable, ?satting 93 to 95%? on room air. ? Laboratory data significant for troponin was noted to be elevated to a 1032, BNP? 218, D-dimer 4158 .? EKG nonischemic.? Chest CTA showing Extensive bilateral pulmonary emboli involving the central right and left pulmonary arteries and extending into the segmental and subsegmental pulmonary arteries. Additionally, ? left lower extremity venous dop pler showing Occlusive thrombus throughout the left lower extremity including the profunda femoral vein, superficial femoral vein, femoral vein, popliteal vein, posterior tibial vein, and peroneal vein She was started on heparin drip.?Will be admitted to the ICU for closely? monitoring of? bilateral? pulmonary emboli Review of Systems Review of Systems: Constitutional symptoms:? No weakness, fatigue, fever, sweats.?? Skin symptoms:? No rash,?? Eye symptoms:? Vision unchanged.? ENMT symptoms:? No ear pain, no sore throat, no nasal congestion.?? Respiratory symptoms:? + shortness of breath with exertion, no cough.?? Cardiovascular symptoms:?+ peripheral edema, + chest pressure. no palpitations, no syncope, no diaphoresis.?? Gastrointestinal symptoms:? No abdominal pain, no nausea.?? Genitourinary symptoms:? No dysuria, no hematuria, no vaginal bleeding.?? Musculoskeletal symptoms:? No back pain,?? Neurologic symptoms:? no dizziness, no focal weakness, no incontinence, no headache, no altered level of consciousness.?? Psychiatric symptoms:? Negative except as documented in HPI.? [facility] Past Medical History Medical History Anxiety Common variable immunodeficiency Depression Encounter for colonoscopy following colon polyp removal GERD (gastroesophageal reflux disease) History of sciatica Hypertension PTSD (post-traumatic stress disorder) Sleep apnea Functional capacity: independent ambulation Family History Family history: reviewed and not pertinent Surgical History Surgical History History of gastric bypass History of hysterectomy Social History Social History Household Members: None Housing: Apartment Do you presently have visiting nurse or other home services: No Alcohol intake: former Patient Tobacco Use Status: Never used Tobacco Advance Directives: No Advance Directives Information Provided: No service: No Sexual orientation: did not discuss. Meds Allergies Allergy/AdvReac Type Severity Reaction Status Date / Time ciprofloxacin Allergy rash Verified 10/25/20 06:38 nitrofurantoin Allergy rash Verified 10/25/20 06:38 [From Macrobid] Sulfa (Sulfonamide Allergy rash Verified 10/25/20 06:38 Antibiotics) quetiapine [From Seroquel] AdvReac suicidal Verified 10/25/20 06:38 ideation Active Medications: Current Medications Heparin Sodium (Porcine) (Heparin Sodium,Porcine 5,000 Unit/Ml Vial) 4,800 unit 40 unit/kg (4800 unit) IVPUSH PROTOCOL BOLUS PRN; Protocol PRN Reason: 40 unit/kg - Heparin Protocol Heparin Sodium (Porcine) (Heparin Sodium,Porcine 5,000 Unit/Ml Vial) 9,700 unit 80 unit/kg (9700 unit) IVPUSH PROTOCOL BOLUS PRN; Protocol PRN Reason: 80 unit/kg - Heparin Protocol Heparin Sodium/Sodium Chloride () 25,000 unit in 250 mls @ 0 mls/hr IVCONT .Q0M NEERAJ; Protocol Last Admin: 08/13/21 19:30 Dose: 8.26 units/kg/hr, 10 mls/hr Documented by: Home Medications Medication Instructions Recorded Confirmed Last Taken Type hydroxyzine HCl 50 mg tablet 100 mg PO BEDTIME PRN 06/02/21 06/02/21 06/01/21 20:00 History Physical Exam Vital Signs: Vital Signs: Last Vital Signs Temp 98.0 F 08/13/21 17:22 Pulse 92 08/13/21 20:36 Resp 13 08/13/21 20:36 BP 148/76 H 08/13/21 20:36 Pulse Ox 95 08/13/21 20:36 Body Mass Index 47.2 Cardiac: Regular rate and rhythm, Normal peripheral perfusion, bilateral lower extremity edema worse on left than right.?? Respiratory:? Lungs are clear to auscultation, respirations are non-labored.?? Gastrointestinal:? Soft, Nontender, Non distended, Normal bowel sounds.?? Back:? Nontender, Normal range of motion, Normal alignment.?? Musculoskeletal:? Normal ROM, normal strength, no tenderness, no swelling, no deformity.?? Neurological:? Alert and oriented to person, place, time, and situation, No focal neurological deficit observed.?? Lymphatics:? No lymphadenopathy.? Psychiatric:? Cooperative, appropriate mood & affect, normal judgment.?? Results Labs CBC and Chem 7: 08/13/21 20:25 08/13/21 15:15 Labs: Laboratory Results - last 24 hr 08/13/21 08/13/21 08/13/21 15:15 15:15 15:15 MCV 87.0 MCH 29.2 MCHC 33.6 RDW 13.0 Plt Count 248 MPV 9.1 L Immature Gran % (Auto) 0.7 H Neut % (Auto) 66.6 Lymph % (Auto) 24.1 [place] % (Auto) 6.9 Eos % (Auto) 1.3 Baso % (Auto) 0.4 Lymph # (Auto) 2.6 [place] # (Auto) 0.8 Eos # (Auto) 0.1 Baso # (Auto) 0.0 Abs Immat Gran (auto) 0.08 H Absolute Neuts (auto) 7.23 Absolute Nucleated RBC 0.000 Nucleated RBC % (auto) 0.0 PT INR APTT D-Dimer Anion Gap 14 Estim Creat Clear Calc 67.9 Estimated GFR 48 Random Glucose 109 Calcium 9.3 Magnesium 1.9 Total Bilirubin 0.3 AST 23 ALT 7 Alkaline Phosphatase 113 D Troponin I High Sens B-Natriuretic Peptide Total Protein 7.1 Albumin 4.1 Influenza Type A (PCR) NEGATIVE Influenza Type B (PCR) NEGATIVE RSV RNA Qual (PCR) NEGATIVE SARS-CoV-2 RNA (RT-PCR) NEGATIVE 08/13/21 08/13/21 08/13/21 15:15 17:42 18:51 MCV MCH MCHC RDW Plt Count MPV Immature Gran % (Auto) Neut % (Auto) Lymph % (Auto) [place] % (Auto) Eos % (Auto) Baso % (Auto) Lymph # (Auto) [place] # (Auto) Eos # (Auto) Baso # (Auto) Abs Immat Gran (auto) Absolute Neuts (auto) Absolute Nucleated RBC Nucleated RBC % (auto) PT 12.2 INR 1.1 APTT 37.5 D-Dimer 4158 Anion Gap Estim Creat Clear Calc Estimated GFR Random Glucose Calcium Magnesium Total Bilirubin AST ALT Alkaline Phosphatase Troponin I High Sens 1032.9 H* 656.8 H* B-Natriuretic Peptide 219 H Total Protein Albumin Influenza Type A (PCR) Influenza Type B (PCR) RSV RNA Qual (PCR) SARS-CoV-2 RNA (RT-PCR) 08/13/21 20:25 MCV 87.9 MCH 29.0 MCHC 33.0 RDW 13.1 Plt Count 231 MPV 9.1 L Immature Gran % (Auto) 0.9 H Neut % (Auto) 59.9 Lymph % (Auto) 29.6 [place] % (Auto) 7.1 Eos % (Auto) 2.0 Baso % (Auto) 0.5 Lymph # (Auto) 3.6 [place] # (Auto) 0.9 Eos # (Auto) 0.2 Baso # (Auto) 0.1 Abs Immat Gran (auto) 0.11 H Absolute Neuts (auto) 7.32 Absolute Nucleated RBC 0.000 Nucleated RBC % (auto) 0.0 PT INR APTT D-Dimer Anion Gap Estim Creat Clear Calc Estimated GFR Random Glucose Calcium Magnesium Total Bilirubin AST ALT Alkaline Phosphatase Troponin I High Sens B-Natriuretic Peptide Total Protein Albumin Influenza Type A (PCR) Influenza Type B (PCR) RSV RNA Qual (PCR) SARS-CoV-2 RNA (RT-PCR) Imaging Radiologist's Impressions: Impressions Chest X-Ray 08/13/21 15:20 IMPRESSION: Unremarkable examination. Venous Duplex 08/13/21 17:20 IMPRESSION: Occlusive thrombus throughout the left lower extremity including the profunda femoral vein, superficial femoral vein, femoral vein, popliteal vein, posterior tibial vein, and peroneal vein. This critical result was discussed with Rita Casper at 7:07 pm on 08/13/2021 and it was ascertained that the content and urgency of the report was understood at the time of direct communication. Chest CTA 08/13/21 18:26 IMPRESSION: 1. Extensive bilateral pulmonary emboli involving the central right and left pulmonary arteries and extending into the segmental and subsegmental pulmonary arteries. Prominence of the right ventricle and right atrium with septal bowing, indicating right heart strain. Mild reflux of contrast into the hepatic veins, suggesting elevated right heart pressures. 2. No airspace consolidation. VTE: Positive. This critical result was discussed with Rita Casper at 7:26 PM on 08/13/2021 and it was ascertained that the content and urgency of the report was understood at the time of direct communication. Assessment and Plan (1) Pulmonary embolism: Qualifiers: Acute cor pulmonale presence: with acute cor pulmonale Chronicity: acute Pulmonary embolism type: unspecified Qualified Code(s): I26.09 - Other pulmonary embolism with acute cor pulmonale Status: Acute Plan: Neuro: No acute issues? Cardiac:?? ?Elevated troponin:? EKG nonischemic, likely? demand from bilateral PEs.? Troponins are already trending down.? Continue to trend troponin.? ?DVT of Left lower extremity:? ? venous Doppler of lower extremity showing significant thrombus? throughout the extremity.? Started on heparin drip.? Continue heparin drip Pulmonary: ?Bilateral pulmonary emboli:? CTA demonstrated? bilateral pulmonary emboli involving central right and left pulmonary arteries. ? Patient vital signs are still stable. Started on heparin drip. Cont heparin drip.? Renal:? ??ROSSANA-? nonoliguric.? Likely hypoperfusion. ? Unable to? give? fluids at this time due to elevated BNP.? We will continue to trend? renal indices? closely Endo:?? ?No acute issues GI:?? ?No acute issues ID: ?No acute issues Heme/Onc:? No acute issues. Psych:? No acute issues. Miscellaneous:? No acute issues. Prophylaxis:? IV Heparin, ? no GI prophylaxis at this time CODE:? ? Full code Critical care time: X 60 minutes of critical care time Case reviwed with Attending Dr Bernard (2) DVT (deep venous thrombosis): Qualifiers: Affected thrombotic vein of extremity: unspecified vein of extremity Chronicity: acute DVT location: lower extremity Laterality: left Qualified Code(s): I82.402 - Acute embolism and thrombosis of unspecified deep veins of left lower extremity Status: Acute (3) ROSSANA (acute kidney injury): Status: Acute (4) Elevated troponin: Status: Acute Critical Care Time Critical Care Time (minutes): 60
--- NOTE | 2021-08-13 21:46 | PC.NURSE ---
REPORT GIVEN TO ICE NURSE. PT TRANSFERED IN BED WITH ZOLE BY THIS NURSE AND PCT.
[2021-08-13 23:15] LABS: Appearance Urine CLEAR; Color Urine YELLOW; Glucose Urine UA NEG (NEG); Leukocyte Esterase Urine NEG (NEG); Nitrite Urine NEG (NEG); Specific Gravity - Urine <= 1.005 (1.005-1.025); Urine Blood NEG (NEG); Urine Ketones NEG (NEG); Urine Protein NEG (NEG-TRACE)
[2021-08-14] VITALS (24 sets, daily range): BP systolic 99–168; BP diastolic 74–96; PULSE 85–97; RESP 7–24; TEMP 36.4–37.9; O2SAT 90–98; BMI 48.0
[2021-08-14 01:56] LABS: PTT Heparin Drip 109.4 SEC (53-77.9)
[2021-08-14] MEDS: LORazepam 2 MG/ML VIAL 0.5 MG IVPUSH (02:01)
[2021-08-14 03:02] LABS: PTT Heparin Drip 87.5 SEC (53-77.9)
[2021-08-14 05:31] LABS: MANUAL DIFF FLAG NO
[2021-08-14 05:33] LABS: Basophils Percent Auto 0.3 % (0-2); Eosinophils Absolute Auto 0.2 X10*3/uL (0.0-0.4); Eosinophils Percent Auto 1.8 % (0-4); Hematocrit 41.4 % (37.0-47.0); Hemoglobin 13.8 g/dl (12.0-16.0); Imm Gran Abs Auto 0.08 X10*3/uL (0.00-0.03); Imm Gran Pct Auto 0.8 % (0.0-0.4); Lymphocytes Absolute Auto 2.9 X10*3/uL (1.2-4.9); Lymphocytes Percent Auto 29.9 % (20-40); Mean Corpuscular HGB Conc 33.3 g/dl (31.0-35.0); Monocytes Absolute Auto 0.8 X10*3/uL (0.1-1.2); Monocytes Percent Auto 7.6 % (2-11); Neutrophils Absolute Auto 5.85 x10*3/uL (2.0-8.3); Neutrophils Percent Auto 59.6 % (45-73); Platelet Count 227 X10*3/uL (160-400); Red Blood Count 4.76 X10*6/uL (4.20-5.50); Red Cell Distribution Width 13.1 % (11.0-16.0); White Blood Count 9.8 X10*3/uL (4.8-10.8)
[2021-08-14 05:53] LABS: Albumin Level 3.6 g/dL (3.5-5.0); Anion Gap 13 (12-20); Blood Urea Nitrogen 11 mg/dL (9-16); Calcium 8.8 mg/dL (8.4-10.2); Carbon Dioxide 23 mmol/L (22-29); Chloride 108 mmol/L (96-108); Creatinine Clr Calc Pharmacy 80.1; Estimated Glomerular Filt Rate 57; Glucose Random 111 mg/dL (60-115); Phosphorus 2.7 mg/dL (2.7-4.5); Potassium 4.2 mmol/L (3.3-5.1); Sodium 140 mmol/L (135-145)
[2021-08-14 05:56] LABS: Troponin-I High Sensitivity 471.8 ng/L (<3.5-17.0)
[2021-08-14 05:57] LABS: B Type Natriuretic Peptide 395 pg/mL (<100)
--- NOTE | 2021-08-14 06:13 | PC.NURSE ---
Patient offers no complaints. PRN ativan x1 for insomnia with some effect. Remained NPO except ice chips in case of procedure this morning. Satting mid 90's on RA while awake. Desatting to high 80's with sleep. Placed on 2L NC with good effect. No Chest pain or shortness of breath. Respirations easy. Lungs dim. Left leg slight red, warm, tender to touch. Heparin gtt per protocol.
--- NOTE | 2021-08-14 09:38 | PM.CNGS ---
History of Present Illness Consult details Consult date: 08/14/21 Reason for consult: other (DVT with PE) Narrative: Very pleasant 56-year-old female in her usual state of health approximately 2 weeks prior noted acute onset of swelling of the left lower extremity. She has had prior episodes of this swelling and was attributed to cellulitis. At that time the ultrasound was negative. She presented to the emergency room acutely short of breath. She was found to have extensive left lower extremity DVT with PE. She was subsequently admitted and placed on a heparin drip. She appears to be much more stable today. She is breathing well. She now presents to us Review of Systems Constitutional: Constitutional: Reports as per HPI ENT: Reports system reviewed and no additional complaints, except as documented Cardiovascular: Cardiovascular: Denies chest pain, Denies chest pain at rest and Denies chest pain with activity Respiratory: Respiratory: Denies chest congestion and Denies cough Gastrointestinal: Gastrointestinal: Reports no additional gastrointestinal complaints Musculoskeletal: Musculoskeletal: Denies abnormal gait Integumentary/Breasts: Skin/Breast: Reports pruritus and Denies wounds Neurologic: Reports system reviewed and no additional complaints, except as documented and Denies abnormal gait Psychiatric: Psychiatric: Denies no additional psychiatric complaints PMF Past Medical History Medical History Anxiety Common variable immunodeficiency Depression Encounter for colonoscopy following colon polyp removal GERD (gastroesophageal reflux disease) History of sciatica Hypertension PTSD (post-traumatic stress disorder) Sleep apnea Functional capacity: independent ambulation Family History Family history: reviewed and not pertinent Surgical History Surgical History History of gastric bypass History of hysterectomy Social History Social History Household Members: None Housing: Apartment Do you presently have visiting nurse or other home services: No Alcohol intake: former Patient Tobacco Use Status: Never used Tobacco Use of substances other than those prescribed or required for medical reasons: No Currently Displaying Signs/Symptoms of Drug Intoxication Withdrawal: No Have you been hit, kicked, punched, or otherwise hurt by someone within the past year? If so, by whom?: No Do you feel safe in your current relationship?: No Current Relationship Is there a partner from a previous relationship who is making you feel unsafe now?: No Are you made to feel afraid or neglected: No Advance Directives: No Advance Directives Information Provided: No Do you have thoughts of harming others: None Do you have a plan to hurt others: No Plan Recently lost weight without trying: Unsure Nutrition Risks: No Nutritional Risk Patient : No : No Poor oral hygiene: No service: No Sexual orientation: did not discuss. Meds Allergies Allergy/AdvReac Type Severity Reaction Status Date / Time ciprofloxacin Allergy rash Verified 10/25/20 06:38 nitrofurantoin Allergy rash Verified 10/25/20 06:38 [From Macrobid] Sulfa (Sulfonamide Allergy rash Verified 10/25/20 06:38 Antibiotics) quetiapine [From Seroquel] AdvReac suicidal Verified 10/25/20 06:38 ideation Active Medications: Current Medications Cefuroxime Axetil (Cefuroxime Axetil 250 Mg Tablet) 250 mg PO Q12H [facility] Stop: 08/16/21 23:46 Last Admin: 08/14/21 00:11 Dose: 250 mg Documented by: Heparin Sodium (Porcine) (Heparin Sodium,Porcine 5,000 Unit/Ml Vial) 4,800 unit 40 unit/kg (4800 unit) IVPUSH PROTOCOL BOLUS PRN; Protocol PRN Reason: 40 unit/kg - Heparin Protocol Heparin Sodium (Porcine) (Heparin Sodium,Porcine 5,000 Unit/Ml Vial) 9,700 unit 80 unit/kg (9700 unit) IVPUSH PROTOCOL BOLUS PRN; Protocol PRN Reason: 80 unit/kg - Heparin Protocol Heparin Sodium/Sodium Chloride () 25,000 unit in 250 mls @ 0 mls/hr IVCONT .Q0M NEERAJ; Protocol Last Titration: 08/14/21 03:00 Dose: 4.26 units/kg/hr, 5.16 mls/hr Documented by: Lorazepam (Lorazepam 2 Mg/Ml Vial) 0.5 mg IVPUSH Q6H PRN PRN Reason: Anxiety Last Admin: 08/14/21 02:01 Dose: 0.5 mg Documented by: Home Medications Medication Instructions Recorded Confirmed Last Taken Type hydroxyzine HCl 50 mg tablet 100 mg PO BEDTIME PRN 06/02/21 08/13/21 08/12/21 21:00 History cefuroxime axetil 250 mg tablet 1 tab PO BID 08/13/21 08/13/21 08/13/21 09:00 History immun glob G 2 gram/10mL(20 3 ml SUBCUT 08/13/21 08/12/21 History %)-prol-IgA 0-50 mcg/mL subcutaneous syrin (Hizentra) Physical Exam Vital Signs: Vital Signs: Last Vital Signs Temp 97.5 F 08/14/21 09:00 Pulse 92 08/14/21 09:00 Resp 11 L 08/14/21 09:00 BP 130/93 H 08/14/21 09:00 Pulse Ox 97 08/14/21 09:00 Body Mass Index 48.0 Const: General: cooperative, healthy appearing and comfortable Orientation/consciousness: oriented to person, oriented to place and oriented to time Neck: Carotids: no bruits Chest: Chest palpation & inspection: normal inspection of the chest and normal palpation of entire chest wall Resp: Effort & Inspection: normal respiratory effort and able to speak in complete sentences Cardio: Rate: regular rate Heart sounds: S1 normal heart sound present and S2 normal heart sound present Peripheral pulses: Peripheral pulses 2+ throughout GI: Inspection: Yes normal to inspection Skin: Other: +2 edema, left greater than right General skin exam: dry skin Neuro: General: oriented to person, oriented to place and oriented to time Extrem: General: Yes edema Right lower extremity: full ROM, normal capillary refill and edema Left lower extremity: full ROM, normal capillary refill and edema Psych: Mental Status: mental status grossly normal Results Labs Result diagrams: 08/14/21 05:26 08/14/21 05:26 Labs: Abnormal lab results 08/13/21 08/13/21 08/13/21 Range/Units 15:15 15:15 18:51 WBC 10.9 H (4.8-10.8) X10*3/uL MPV 9.1 L (9.4-12.3) fL Immature Gran % (Auto) 0.7 H (0.0-0.4) % Abs Immat Gran (auto) 0.08 H (0.00-0.03) X10*3/uL PTT (Heparin Protocol) (53-77.9) SEC Troponin I High Sens 1032.9 H* 656.8 H* (<3.5-17.0) ng/L B-Natriuretic Peptide 219 H (<100) pg/mL 08/13/21 08/14/21 08/14/21 Range/Units 20:25 01:27 02:36 WBC 12.2 H (4.8-10.8) X10*3/uL MPV 9.1 L (9.4-12.3) fL Immature Gran % (Auto) 0.9 H (0.0-0.4) % Abs Immat Gran (auto) 0.11 H (0.00-0.03) X10*3/uL PTT (Heparin Protocol) 109.4 H* 87.5 H D (53-77.9) SEC Troponin I High Sens (<3.5-17.0) ng/L B-Natriuretic Peptide (<100) pg/mL 08/14/21 08/14/21 Range/Units 05:26 05:26 WBC (4.8-10.8) X10*3/uL MPV 9.0 L (9.4-12.3) fL Immature Gran % (Auto) 0.8 H (0.0-0.4) % Abs Immat Gran (auto) 0.08 H (0.00-0.03) X10*3/uL PTT (Heparin Protocol) (53-77.9) SEC Troponin I High Sens 471.8 H* (<3.5-17.0) ng/L B-Natriuretic Peptide 395 H (<100) pg/mL Short CBC 08/13/21 08/13/21 08/14/21 Range/Units 15:15 20:25 05:26 WBC 10.9 H 12.2 H 9.8 (4.8-10.8) X10*3/uL Hgb 15.0 14.6 13.8 (12.0-16.0) g/dl Hct 44.7 44.2 41.4 (37.0-47.0) % Plt Count 248 231 227 (160-400) X10*3/uL BMP 08/13/21 08/14/21 15:15 05:26 Sodium 141 140 Potassium 4.4 4.2 Chloride 107 108 Carbon Dioxide 24 23 BUN 14 11 Creatinine 1.18 1.01 Calcium 9.3 8.8 Liver Function 08/13/21 08/14/21 Range/Units 15:15 05:26 Total Bilirubin 0.3 (0.0-1.0) mg/dL AST 23 (5-31) U/L ALT 7 (0-31) U/L Alkaline Phosphatase 113 D (39-117) U/L Albumin 4.1 3.6 (3.5-5.0) g/dL Urine 08/13/21 Range/Units 23:00 Urine Color YELLOW Urine Appearance CLEAR Urine pH 6.0 (5.0-8.0) Ur Specific [place] <= 1.005 (1.005-1.025) Urine Protein NEG (NEG-TRACE) MG/DL Urine Glucose (UA) NEG (NEG) MG/DL All other labs normal. Imaging CT scan - chest: report reviewed and image reviewed Additional studies: Lower extremity venous duplex written report and images were reviewed confirming DVT of the left lower extremity Assessment and Plan (1) DVT (deep venous thrombosis): Qualifiers: Affected thrombotic vein of extremity: unspecified vein of extremity Chronicity: acute DVT location: lower extremity Laterality: left Qualified Code(s): I82.402 - Acute embolism and thrombosis of unspecified deep veins of left lower extremity Status: Acute Patient notes DVT. I have discussed the pathophysiology of venous diseasewith the patient. I have also discussed risk factor modification. I have reviewed the patient's venous testing which reveals DVT the patient would benefit from a left leg endovascular peripheral angiogram with possible angioplasty, stent, and/or thrombolysis. This has been discussed in detail with the patient along with risks, benefits, and complications. This includes but is not limited to bleeding, infection, heart attack, need for emergent surgical repair, limb ischemia, blood vessel damage, bleeding, puncture, kidney injury, bruising, allergic reaction, and skin reaction. The patient demonstrates a clear understanding. We will schedule for the next appropriate time. Thank you for allowing us to assist in this patient's care. Procedures Date of Service Date of Service: 08/14/21
[2021-08-14 10:26] LABS: PTT Heparin Drip 46.5 SEC (53-77.9)
[2021-08-14 10:40] LABS: INTERNATIONAL NORM RATIO 1.1 (0.9-1.1); Prothrombin Time 12.1 SEC (9.9-13.0)
[2021-08-14] MEDS: Heparin Sodium,Porcine 5,000 UNIT/ML VIAL 4800 UNIT IVPUSH (10:56)
--- NOTE | 2021-08-14 11:21 | PM.CCPN ---
Subjective Subjective Date of Service: 08/14/21 Interval History: 56-year-old moderately obese female with an apparent background of common variable immunodeficiency for which she takes replacement IgG and IgA and this was diagnosed after having had frequent respiratory and and bladder infections apparently has been increasingly sedentary because of a ligament injury and presented with a swollen and painful left lower extremity which in retrospect demonstrated the presence of active thrombus to a fair extent and bilateral pretty much saddle emboli near totally obstructing both the right and left pulmonary artery branches with evidence of his significant dilatation of the right ventricle with evidence of a reverse [place] effect and today is she says she is subjectively improved because she can now talk in complete sentences so dyspnea is diminished and sense of chest pressure is diminished and of course she did have a total troponin of a nearly a 1000 which I would have to say in retrospect was right ventricular in origin and although she still has right ventricular dilatation and just evidence of apical contractility my sense on comparing my echo modality to the CT scan last night is that right ventricular than a pressure in dilatation are improved Of course there is compression of the left ventricle with septal paradox but otherwise normal left ventricular anatomy and lung parenchyma were clear I did send off a medical hypercoagulable workup Critical Care Time (minutes): 45 Physical Exam Vital Signs: Vital Signs: Last Vital Signs Temp 99.3 F 08/14/21 11:00 Pulse 90 08/14/21 11:00 Resp 12 08/14/21 11:00 BP 134/93 H 08/14/21 11:00 Pulse Ox 98 08/14/21 11:00 Body Mass Index 48.0 Good bilateral carotid upstrokes no apparent neck vein distension Precordium is quiet no gallops Abdomen soft no organomegaly Chest is perfectly clear with no adventitious sounds Left lower extremity is swollen but pulses are palpable there is no skin livedo and is no cerulea Objective Data Labs CBC & Chem 7: 08/14/21 05:26 08/14/21 05:26 Labs: Laboratory Results - last 24 hr 08/13/21 08/13/21 08/13/21 15:15 15:15 15:15 WBC 10.9 H RBC 5.14 Hgb 15.0 Hct 44.7 MCV 87.0 MCH 29.2 MCHC 33.6 RDW 13.0 Plt Count 248 MPV 9.1 L Immature Gran % (Auto) 0.7 H Neut % (Auto) 66.6 Lymph % (Auto) 24.1 [place] % (Auto) 6.9 Eos % (Auto) 1.3 Baso % (Auto) 0.4 Lymph # (Auto) 2.6 [place] # (Auto) 0.8 Eos # (Auto) 0.1 Baso # (Auto) 0.0 Abs Immat Gran (auto) 0.08 H Absolute Neuts (auto) 7.23 Absolute Nucleated RBC 0.000 Nucleated RBC % (auto) 0.0 PT INR APTT PTT (Heparin Protocol) D-Dimer Sodium 141 Potassium 4.4 Chloride 107 Carbon Dioxide 24 Anion Gap 14 BUN 14 Creatinine 1.18 Estim Creat Clear Calc 67.9 Estimated GFR 48 Random Glucose 109 Calcium 9.3 Phosphorus Magnesium 1.9 Total Bilirubin 0.3 AST 23 ALT 7 Alkaline Phosphatase 113 D Troponin I High Sens B-Natriuretic Peptide Total Protein 7.1 Albumin 4.1 Urine Color Urine Appearance Urine pH Ur Specific [place] Urine Protein Urine Glucose (UA) Urine Ketones Urine Blood Urine Nitrite Ur Leukocyte Esterase Influenza Type A (PCR) NEGATIVE Influenza Type B (PCR) NEGATIVE RSV RNA Qual (PCR) NEGATIVE SARS-CoV-2 RNA (RT-PCR) NEGATIVE 08/13/21 08/13/21 08/13/21 15:15 17:42 18:51 WBC RBC Hgb Hct MCV MCH MCHC RDW Plt Count MPV Immature Gran % (Auto) Neut % (Auto) Lymph % (Auto) [place] % (Auto) Eos % (Auto) Baso % (Auto) Lymph # (Auto) [place] # (Auto) Eos # (Auto) Baso # (Auto) Abs Immat Gran (auto) Absolute Neuts (auto) Absolute Nucleated RBC Nucleated RBC % (auto) PT 12.2 INR 1.1 APTT 37.5 PTT (Heparin Protocol) D-Dimer 4158 Sodium Potassium Chloride Carbon Dioxide Anion Gap BUN Creatinine Estim Creat Clear Calc Estimated GFR Random Glucose Calcium Phosphorus Magnesium Total Bilirubin AST ALT Alkaline Phosphatase Troponin I High Sens 1032.9 H* 656.8 H* B-Natriuretic Peptide 219 H Total Protein Albumin Urine Color Urine Appearance Urine pH Ur Specific [place] Urine Protein Urine Glucose (UA) Urine Ketones Urine Blood Urine Nitrite Ur Leukocyte Esterase Influenza Type A (PCR) Influenza Type B (PCR) RSV RNA Qual (PCR) SARS-CoV-2 RNA (RT-PCR) 08/13/21 08/13/21 08/14/21 20:25 23:00 01:27 WBC 12.2 H RBC 5.03 Hgb 14.6 Hct 44.2 MCV 87.9 MCH 29.0 MCHC 33.0 RDW 13.1 Plt Count 231 MPV 9.1 L Immature Gran % (Auto) 0.9 H Neut % (Auto) 59.9 Lymph % (Auto) 29.6 [place] % (Auto) 7.1 Eos % (Auto) 2.0 Baso % (Auto) 0.5 Lymph # (Auto) 3.6 [place] # (Auto) 0.9 Eos # (Auto) 0.2 Baso # (Auto) 0.1 Abs Immat Gran (auto) 0.11 H Absolute Neuts (auto) 7.32 Absolute Nucleated RBC 0.000 Nucleated RBC % (auto) 0.0 PT INR APTT PTT (Heparin Protocol) 109.4 H* D-Dimer Sodium Potassium Chloride Carbon Dioxide Anion Gap BUN Creatinine Estim Creat Clear Calc Estimated GFR Random Glucose Calcium Phosphorus Magnesium Total Bilirubin AST ALT Alkaline Phosphatase Troponin I High Sens B-Natriuretic Peptide Total Protein Albumin Urine Color YELLOW Urine Appearance CLEAR Urine pH 6.0 Ur Specific [place] <= 1.005 Urine Protein NEG Urine Glucose (UA) NEG Urine Ketones NEG Urine Blood NEG Urine Nitrite NEG Ur Leukocyte Esterase NEG Influenza Type A (PCR) Influenza Type B (PCR) RSV RNA Qual (PCR) SARS-CoV-2 RNA (RT-PCR) 08/14/21 08/14/21 08/14/21 02:36 05:26 05:26 WBC RBC Hgb Hct MCV MCH MCHC RDW Plt Count MPV Immature Gran % (Auto) Neut % (Auto) Lymph % (Auto) [place] % (Auto) Eos % (Auto) Baso % (Auto) Lymph # (Auto) [place] # (Auto) Eos # (Auto) Baso # (Auto) Abs Immat Gran (auto) Absolute Neuts (auto) Absolute Nucleated RBC Nucleated RBC % (auto) PT INR APTT PTT (Heparin Protocol) 87.5 H D D-Dimer Sodium 140 Potassium 4.2 Chloride 108 Carbon Dioxide 23 Anion Gap 13 BUN 11 Creatinine 1.01 Estim Creat Clear Calc 80.1 Estimated GFR 57 Random Glucose 111 Calcium 8.8 Phosphorus 2.7 Magnesium 2.0 Total Bilirubin AST ALT Alkaline Phosphatase Troponin I High Sens 471.8 H* B-Natriuretic Peptide 395 H Total Protein Albumin 3.6 Urine Color Urine Appearance Urine pH Ur Specific [place] Urine Protein Urine Glucose (UA) Urine Ketones Urine Blood Urine Nitrite Ur Leukocyte Esterase Influenza Type A (PCR) Influenza Type B (PCR) RSV RNA Qual (PCR) SARS-CoV-2 RNA (RT-PCR) 08/14/21 08/14/21 08/14/21 05:26 09:58 09:58 WBC 9.8 RBC 4.76 Hgb 13.8 Hct 41.4 MCV 87.0 MCH 29.0 MCHC 33.3 RDW 13.1 Plt Count 227 MPV 9.0 L Immature Gran % (Auto) 0.8 H Neut % (Auto) 59.6 Lymph % (Auto) 29.9 [place] % (Auto) 7.6 Eos % (Auto) 1.8 Baso % (Auto) 0.3 Lymph # (Auto) 2.9 [place] # (Auto) 0.8 Eos # (Auto) 0.2 Baso # (Auto) 0.0 Abs Immat Gran (auto) 0.08 H Absolute Neuts (auto) 5.85 Absolute Nucleated RBC 0.000 Nucleated RBC % (auto) 0.0 PT 12.1 INR 1.1 APTT Cancelled PTT (Heparin Protocol) 46.5 L D D-Dimer Sodium Potassium Chloride Carbon Dioxide Anion Gap BUN Creatinine Estim Creat Clear Calc Estimated GFR Random Glucose Calcium Phosphorus Magnesium Total Bilirubin AST ALT Alkaline Phosphatase Troponin I High Sens B-Natriuretic Peptide Total Protein Albumin Urine Color Urine Appearance Urine pH Ur Specific [place] Urine Protein Urine Glucose (UA) Urine Ketones Urine Blood Urine Nitrite Ur Leukocyte Esterase Influenza Type A (PCR) Influenza Type B (PCR) RSV RNA Qual (PCR) SARS-CoV-2 RNA (RT-PCR) Quality Stroke Does the patient have a stroke diagnosis?: No VTE Prior VTE?: No VTE Risk Level:: Medical - moderate - high VTE Device Contraindication: Treatment Not Indicated VTE Drug Contraindication: N/A - Med Ordered Progress Note: A&P Assessment and plan (1) Elevated troponin: Status: Acute (2) ROSSANA (acute kidney injury): Status: Acute (3) Pulmonary embolism: Status: Acute (4) DVT (deep venous thrombosis): Status: Acute (5) Common variable immunodeficiency: Status: Acute (6) GERD (gastroesophageal reflux disease): Status: Acute (7) MDD (major depressive disorder), recurrent severe, without psychosis: Status: Acute (8) NIURKA (generalized anxiety disorder): Status: Acute (9) PTSD (post-traumatic stress disorder): Status: Acute (10) 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: Status: Acute Assessment and Plan: Fall told because she is clinically improving I will maintain the heparin and not resort to lytics unless there is an exacerbation and await the results of the hypercoagulable workup
[2021-08-14] MEDS: risperiDONE 0.5 MG TABLET PO ×2 (11:57→20:29)
[2021-08-14] MEDS: Venlafaxine HCl ER 150 MG CAP.ER.24H PO (11:57)
[2021-08-14] MEDS: Venlafaxine HCl ER 37.5 MG CAP.ER.24H PO (11:57)
[2021-08-14] MEDS: 0.9 % Sodium Chloride 1,000 ML 100 ML IVCONT (13:38)
[2021-08-14] MEDS: lamoTRIgine 100 MG TABLET PO (13:38)
--- NOTE | 2021-08-14 14:43 | PHA.MEDREC ---
Pharmacy Consult ? Medication Reconciliation Pharmacy has completed the medication reconciliation. spoke with pt at bedside
--- NOTE | 2021-08-14 16:26 | P.OP_ITS ---
Operative Note Operative Note Date of Service: 08/14/21 Narrative: Angiogram report from [facility] Preoperative diagnosis: DVT with PE Postoperative diagnosis: Same Procedure: 1. Ultrasound-guided left common femoral access 2. Vena cavogram 3. Insertion of IVC filter Surgeon:Pramod Martin M.D., FACS, RPVI Electric Range Assembler:None Anesthesia: Local with moderate conscious sedation. Total intraservice moderate sedation time was 30minutes. I monitored the patient's level of consciousness and physiologic status continuously throughout the procedure. Specimens:none Drains:none Estimated blood loss: Less than 10 ml Implant: Bard [place] retriveable filter Indications: 56-year-old female presents for evaluation of extensive DVT of the left lower extremity. There was concern that there was a proximal extent to it and she had significant clot burden. She presents for vena cavogram and IVC filter placement. The possibility of thrombolysis as well. patient has signed the informed consent after reviewing risks, complications, benefits, and alternatives previously discussed with the patient. The patient was given the opportunity to ask any additional questions or voice any concerns. All questions were answered to the patient's satisfaction. Procedure in detail: Patient was brought to the angiography suite prior to which a time-out was called for patient identification and site verification. Bilateral groins were prepped and draped in the standard surgical fashion. Under ultrasound guidance left common femoral vein was punctured with micro puncture needle and wire. Subsequently a precision 4 Algerian sheath was then placed. Bentson wire was advanced to the level of the vena cava. Vena cavogram was then undertaken. We also imaged the iliac veins at as well multiple orthogonal views were undertaken. There was no significant clot burden noted. At this point we decided to place an IVC filter. Was placed in the L2-L3 interspace. This was advanced under fluoroscopic guidance with the Bard in alley sheath. And the Bard [place] filter was then deployed. Completion vena cavogram demonstrated adequate appropriate placement. There is no postprocedure complications. 10 minutes of direct pressure was held. Adequate hemostasis was achieved. Patient was returned to recovery with stable vitals. Interpretation of films: 1. Ultrasound demonstrates appropriate femoral puncture. Image of which was saved. 2. Vena cavogram any iliacs demonstrated no significant clot. 3. Vena cava was less than 3 cm. Completion vena cavogram demonstrated appropriate placement of IVC filter. Conclusion: 1. Successful placement of IVC filter 2. Anticoagulation status: Will need long-term anticoagulation for DVT and PE This note is constructed using voice recognition software. While every effort has been made to ensure accuracy, therapeutic mentor errors may have been included. Thank you for allowing me to participate in the care of your patient. Yours sincerely, Pramod Martin MD, FACS, R.P.V.I.
[2021-08-14 17:30] LABS: PTT Heparin Drip 86.3 SEC (53-77.9)
[2021-08-14] MEDS: Heparin Sodium,Porcine/1/2NS 25,000 UNIT/250 ML IV.SOLN 5.16 UNIT IVCONT (20:24)
[2021-08-14] MEDS: Mirtazapine 30 MG TABLET PO (20:29)
[2021-08-14] MEDS: Acetaminophen 325 MG TABLET 650 MG PO (21:38)
[2021-08-14] MEDS: clonazePAM 1 MG TABLET PO (21:39)
[2021-08-14] MEDS: cloNIDine HCL 0.1 MG TABLET PO (21:39)
[2021-08-14] MEDS: Enoxaparin Sodium 120 MG/0.8 ML SYRINGE 125 MG SUBCUT (22:00)
[2021-08-15] VITALS (16 sets, daily range): BP systolic 107–145; BP diastolic 59–89; PULSE 83–112; RESP 10–23; TEMP 36.7–37.6; O2SAT 91–97; BMI 48.4
[2021-08-15 05:34] LABS: MANUAL DIFF FLAG NO
[2021-08-15 05:49] LABS: Basophils Percent Auto 0.3 % (0-2); Eosinophils Absolute Auto 0.1 X10*3/uL (0.0-0.4); Eosinophils Percent Auto 1.2 % (0-4); Hematocrit 42.1 % (37.0-47.0); Imm Gran Abs Auto 0.06 X10*3/uL (0.00-0.03); Imm Gran Pct Auto 0.7 % (0.0-0.4); Lymphocytes Absolute Auto 1.7 X10*3/uL (1.2-4.9); Lymphocytes Percent Auto 18.6 % (20-40); Mean Corpuscular HGB Conc 33.3 g/dl (31.0-35.0); Mean Corpuscular Hemoglobin 29.4 pg (27.0-33.0); Mean Corpuscular Volume 88.3 fL (80.0-98.0); Monocytes Absolute Auto 0.7 X10*3/uL (0.1-1.2); Monocytes Percent Auto 7.2 % (2-11); Neutrophils Absolute Auto 6.48 x10*3/uL (2.0-8.3); Platelet Count 228 X10*3/uL (160-400); Red Blood Count 4.77 X10*6/uL (4.20-5.50); Red Cell Distribution Width 13.2 % (11.0-16.0)
[2021-08-15 05:55] LABS: Alanine Aminotransferase < 6 U/L (0-31); Albumin Level 3.5 g/dL (3.5-5.0); Alkaline Phosphatase 93 U/L (39-117); Anion Gap 12 (12-20); Aspartate Amino Transferase 17 U/L (5-31); Bilirubin Total 0.4 mg/dL (0.0-1.0); Blood Urea Nitrogen 13 mg/dL (9-16); Calcium 8.6 mg/dL (8.4-10.2); Carbon Dioxide 23 mmol/L (22-29); Chloride 108 mmol/L (96-108); Estimated Glomerular Filt Rate > 60; Glucose Random 120 mg/dL (60-115); INTERNATIONAL NORM RATIO 1.1 (0.9-1.1); Potassium 4.3 mmol/L (3.3-5.1); Prothrombin Time 12.7 SEC (9.9-13.0); Sodium 139 mmol/L (135-145); Total Protein 6.1 g/dL (6.5-8.0)
[2021-08-15] MEDS: Acetaminophen 325 MG TABLET 650 MG PO (06:55)
[2021-08-15] MEDS: Venlafaxine HCl ER 37.5 MG CAP.ER.24H PO (08:25)
[2021-08-15] MEDS: Venlafaxine HCl ER 150 MG CAP.ER.24H PO (08:25)
[2021-08-15] MEDS: cloNIDine HCL 0.1 MG TABLET PO ×3 (08:25→20:26)
[2021-08-15] MEDS: risperiDONE 0.5 MG TABLET PO ×2 (08:26→20:26)
[2021-08-15] MEDS: clonazePAM 1 MG TABLET PO ×3 (08:26→20:26)
[2021-08-15] MEDS: lamoTRIgine 100 MG TABLET PO (08:27)
[2021-08-15] MEDS: Enoxaparin Sodium 120 MG/0.8 ML SYRINGE 125 MG SUBCUT ×2 (08:29→20:26)
--- NOTE | 2021-08-15 11:44 | P.PNCC_ITS ---
Subjective Subjective Date of Service: 08/15/21 Interval History: D6 year old female moderately obese presents with shortness of breath and hypoxemic respiratory failure and apparently had been increasingly sedentary because of a collateral ligament injury and was noted that she had left lower extremity swelling and pain positive deep vein thrombosis positive bilateral right and left main pulmonary artery of near occlusive emboli and evidence of acute cor pulmonale with positive troponin as well as significant distention of the right ventricle both on CT scan and on echo as well comp ressing the interventricular septum but hemodynamically stable with good urine output and normal blood pressures of 130 systolic She has underlying common variable immunodeficiency and has been on subcutaneous immunoglobulin since then Also has underlying depressive disorder and she is on a very comfortable medication regimen that she is happy with and functions very well Critical Care Time (minutes): 35 Physical Exam Vital Signs: Vital Signs: Last Vital Signs Temp 99.0 F 08/15/21 08:00 Pulse 91 08/15/21 11:00 Resp 18 08/15/21 11:00 BP 116/65 08/15/21 11:00 Pulse Ox 95 08/15/21 11:00 Body Mass Index 48.4 Good bilateral carotid upstrokes no neck vein distension Chest clear bilaterally no adventitious sounds Abdomen benign soft good bowel sounds no organomegaly Skin is intact mild left lower extremity edema but no cerulea Objective Data Labs CBC & Chem 7: 08/15/21 05:27 08/15/21 05:27 Labs: Laboratory Results - last 24 hr 08/14/21 08/14/21 08/14/21 09:58 09:58 17:11 WBC RBC Hgb Hct MCV MCH MCHC RDW Plt Count MPV Immature Gran % (Auto) Neut % (Auto) Lymph % (Auto) [place] % (Auto) Eos % (Auto) Baso % (Auto) Lymph # (Auto) [place] # (Auto) Eos # (Auto) Baso # (Auto) Abs Immat Gran (auto) Absolute Neuts (auto) Absolute Nucleated RBC Nucleated RBC % (auto) PT INR PTT (Heparin Protocol) 86.3 H D Factor V Leiden Cancelled Cancelled Factor V Leiden Interp Cancelled Cancelled Sodium Potassium Chloride Carbon Dioxide Anion Gap BUN Creatinine Estim Creat Clear Calc Estimated GFR Random Glucose Calcium Total Bilirubin AST ALT Alkaline Phosphatase Total Protein Albumin Prothrombin [id number] Mut TNP 08/15/21 08/15/21 08/15/21 05:27 05:27 05:27 WBC 9.0 RBC 4.77 Hgb 14.0 Hct 42.1 MCV 88.3 MCH 29.4 MCHC 33.3 RDW 13.2 Plt Count 228 MPV 9.0 L Immature Gran % (Auto) 0.7 H Neut % (Auto) 72.0 Lymph % (Auto) 18.6 L [place] % (Auto) 7.2 Eos % (Auto) 1.2 Baso % (Auto) 0.3 Lymph # (Auto) 1.7 [place] # (Auto) 0.7 Eos # (Auto) 0.1 Baso # (Auto) 0.0 Abs Immat Gran (auto) 0.06 H Absolute Neuts (auto) 6.48 Absolute Nucleated RBC 0.000 Nucleated RBC % (auto) 0.0 PT 12.7 INR 1.1 PTT (Heparin Protocol) Factor V Leiden Factor V Leiden Interp Sodium 139 Potassium 4.3 Chloride 108 Carbon Dioxide 23 Anion Gap 12 BUN 13 Creatinine 0.94 Estim Creat Clear Calc 86.0 Estimated GFR > 60 Random Glucose 120 H Calcium 8.6 Total Bilirubin 0.4 AST 17 ALT < 6 Alkaline Phosphatase 93 Total Protein 6.1 L Albumin 3.5 Prothrombin [id number] Mut Quality Stroke Does the patient have a stroke diagnosis?: No VTE Prior VTE?: No VTE Risk Level:: Medical - moderate - high VTE Device Contraindication: Treatment Not Indicated VTE Drug Contraindication: N/A - Med Ordered Progress Note: A&P Assessment and plan (1) 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: Status: Acute (2) Elevated troponin: Status: Acute (3) ROSSANA (acute kidney injury): Status: Acute (4) Pulmonary embolism: Status: Acute (5) DVT (deep venous thrombosis): Status: Acute (6) Common variable immunodeficiency: Status: Acute (7) GERD (gastroesophageal reflux disease): Status: Acute (8) MDD (major depressive disorder), recurrent severe, without psychosis: Status: Acute (9) NIURKA (generalized anxiety disorder): Status: Acute (10) PTSD (post-traumatic stress disorder): Status: Acute Assessment and Plan: At this point we made the transition to Lovenox and probably by tomorrow morning possibly transition again to apixaban at 10 mg q.12 hourly to complete a week or for an additional week and then reduce to a maintenance dose of 5 mg and probably would need to touch base with her outside truck railroad and bus motor mechanic that she sees but I could not find any connection between the immunodeficient issue and hypercoagulability and this might just be veno due to her sedentary problem
[2021-08-15 12:42] LABS: PTT (LAC) Screen 41 sec (< OR = 40)
[2021-08-15 12:46] LABS: Hexagonal Phase Neutralization NEGATIVE (NEGATIVE)
[2021-08-15 16:01] LABS: Cardiolipin IgG Ab <2.0 GPL-U/mL; Cardiolipin IgM Ab 3.1 MPL-U/mL
--- NOTE | 2021-08-15 17:18 | MHC.CM.PN ---
CM met with admitted patient in room 254 to review d/c plans. No IMM necessary. HCP on file. HCP/friend Delicia Cox ([phone]). A&Ox3. Independent. Employed. Lives alone. Uses no DME or Services. Pt. is fully vaccinated with Pfizer. D/C plan is home without services. Pt is agreeable. Transportation to be arranged by pt. She drove herself to the hospital. CM to follow for d/c needs.
[2021-08-15] MEDS: Mirtazapine 30 MG TABLET PO (20:25)
[2021-08-16] VITALS (8 sets, daily range): BP systolic 104–138; BP diastolic 52–82; PULSE 86–96; RESP 16–18; TEMP 35.9–36.8; O2SAT 92–96; BMI 49.1
--- NOTE | 2021-08-16 01:35 | PC.NURSE ---
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
[2021-08-16] MEDS: cloNIDine HCL 0.1 MG TABLET PO ×3 (08:47→21:35)
[2021-08-16] MEDS: Venlafaxine HCl ER 37.5 MG CAP.ER.24H PO (08:48)
[2021-08-16] MEDS: Venlafaxine HCl ER 150 MG CAP.ER.24H PO (08:48)
[2021-08-16] MEDS: risperiDONE 0.5 MG TABLET PO ×2 (08:48→21:37)
[2021-08-16] MEDS: lamoTRIgine 100 MG TABLET PO (08:48)
[2021-08-16] MEDS: clonazePAM 1 MG TABLET PO ×3 (08:48→21:37)
[2021-08-16] MEDS: Enoxaparin Sodium 120 MG/0.8 ML SYRINGE 125 MG SUBCUT (09:00)
[2021-08-16] MEDS: Omeprazole 20 MG CAPSULE.DR PO (12:27)
--- NOTE | 2021-08-16 13:52 | P.PNIM_ITS ---
Subjective Subjective Date of Service: 08/16/21 Interval History: Patient complaining of upper chest discomfort feels it is related to reflux, and denies shortness of breath, denies palpitation, no leg pain no other acute issues overnight. Review of Systems General no headache, no dizziness, no fever chills. CVS chest discomfort, no pressure, no palpitation. Respiratory no cough, no sob. Gastrointestinal no nausea, no vomiting, heartburn Review of Systems: Yes all other systems are reviewed and are negative Physical Exam Vital Signs: Vital Signs: Last Vital Signs Temp 98.2 F 08/16/21 07:21 Pulse 87 08/16/21 11:40 Resp 18 08/16/21 11:40 BP 112/67 08/16/21 11:40 Pulse Ox 96 08/16/21 11:40 Body Mass Index 49.1 General alert oriented x3 no acute distress Neck no neck vein distension Chest clear bilaterally no adventitious sounds Cardiovascular heart regular rate rhythm Abdomen benign, soft, good bowel sounds no organomegaly Extremities no pitting edema Neuro nonfocal Psych appropriate affect Skin no rash Objective Data Active Medications Acetaminophen (Acetaminophen 325 Mg Tablet) 650 mg PO Q6H PRN PRN Reason: Pain, Moderate (Pain Scale 4-6 Last Admin: 08/15/21 06:55 Dose: 650 mg Documented by: ALIS Al Hydroxide/Mg Hydroxide (Magnesium Hydrox/Alum Hydrox 30 Ml Oral.Susp) 15 ml PO Q4H PRN PRN Reason: Heartburn Cefuroxime Axetil (Cefuroxime Axetil 250 Mg Tablet) 250 mg PO Q12H [facility] Stop: 08/16/21 23:46 Last Admin: 08/16/21 12:27 Dose: 250 mg Documented by: UYEN Clonazepam (Clonazepam 1 Mg Tablet) 1 mg PO TID [facility] Last Admin: 08/16/21 08:48 Dose: 1 mg Documented by: UYEN Clonidine HCl (Clonidine Hcl 0.1 Mg Tablet) 0.1 mg PO TID [facility]; Protocol Last Admin: 08/16/21 08:47 Dose: 0.1 mg Documented by: UYEN Enoxaparin Sodium (Enoxaparin Sodium 120 Mg/0.8 Ml Syringe) 125 mg 1 mg/kg (125 mg) SUBCUT Q12H [facility] Last Admin: 08/16/21 09:00 Dose: 125 mg Documented by: UYEN Lamotrigine (Lamotrigine 100 Mg Tablet) 100 mg PO DAILY [facility] Last Admin: 08/16/21 08:48 Dose: 100 mg Documented by: UYEN Mirtazapine (Mirtazapine 30 Mg Tablet) 30 mg PO BEDTIME [facility] Last Admin: 08/15/21 20:25 Dose: 30 mg Documented by: MABEL Omeprazole (Omeprazole 20 Mg Capsule.Dr) 20 mg PO DAILY@0630 [facility] Last Admin: 08/16/21 12:27 Dose: 20 mg Documented by: UYEN Risperidone (Risperidone 0.5 Mg Tablet) 0.5 mg PO BID [facility] Last Admin: 08/16/21 08:48 Dose: 0.5 mg Documented by: UYEN Venlafaxine HCl (Venlafaxine Hcl Er 150 Mg Cap.Er.24h) 150 mg PO DAILY [facility] Last Admin: 08/16/21 08:48 Dose: 150 mg Documented by: UYEN Venlafaxine HCl (Venlafaxine Hcl Er 37.5 Mg Cap.Er.24h) 37.5 mg PO DAILY [facility] Last Admin: 08/16/21 08:48 Dose: 37.5 mg Documented by: UYEN Labs CBC & Chem 7: 08/15/21 05:27 08/15/21 05:27 Labs: Laboratory Results - last 24 hr 08/14/21 08/14/21 09:58 09:58 Homocysteine 10.0 Anti-Cardiolipin IgG Ab <2.0 Anti-Cardiolipin IgM Ab 3.1 Assessment and Plan (1) 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: Status: Acute (2) Elevated troponin: Status: Acute (3) Pulmonary embolism: Status: Acute (4) DVT (deep venous thrombosis): Status: Acute (5) Common variable immunodeficiency: Status: Acute (6) GERD (gastroesophageal reflux disease): Status: Acute Assessment and Plan: Bilateral pulmonary embolism with cor pulmonale and left lower extremity DVT Patient feeling significantly better with no chest pain or shortness of breath CTA demonstrated? bilateral pulmonary emboli involving central right and left pulmonary arteries DVT likely due to sedentary lifestyle and obesity, outpatient follow-up with Hematology Currently on Lovenox 90 mg b.i.d. will transition to a pexy man 10 mg q.12 hours followed by Eliquis 5 mg b.i.d. Oxygenation stable will recommend out of bed to chair GERD Will place on Prilosec recommend to sit up 45 degrees after each meal Elevated troponin likely due to right ventricular strain Echo reviewed History of common variable immunodeficiency outpatient follow-up with senior cyber security analyst and continue IVIG Morbid obesity contributing to DVT recommend low-calorie diet UTI diagnosed as outpatient continue Ceftin DVT prophylaxis on Eliquis Quality Stroke Does the patient have a stroke diagnosis?: No VTE Prior VTE?: No VTE Risk Level:: Medical - moderate - high VTE Device Contraindication: Treatment Not Indicated VTE Drug Contraindication: N/A - Med Ordered
[2021-08-16] MEDS: Acetaminophen 325 MG TABLET 650 MG PO (21:36)
[2021-08-16] MEDS: Apixaban 5 MG TABLET 10 MG PO (21:36)
[2021-08-16] MEDS: Mirtazapine 30 MG TABLET PO (21:37)
[2021-08-17 03:41] VITALS: BP 126/82; PULSE 89; RESP 16; TEMP 36.4; O2SAT 94
[2021-08-17] MEDS: Omeprazole 20 MG CAPSULE.DR PO (05:46)
[2021-08-17 06:00] VITALS: BMI 49.4
[2021-08-17 07:49] VITALS: BP 121/79; PULSE 89; RESP 18; TEMP 36.5; O2SAT 96
[2021-08-17] MEDS: risperiDONE 0.5 MG TABLET PO (09:43)
[2021-08-17] MEDS: Venlafaxine HCl ER 150 MG CAP.ER.24H PO (09:43)
[2021-08-17] MEDS: Venlafaxine HCl ER 37.5 MG CAP.ER.24H PO (09:43)
[2021-08-17 09:44] VITALS: BP 121/79; PULSE 89
[2021-08-17] MEDS: clonazePAM 1 MG TABLET PO (09:44)
[2021-08-17] MEDS: lamoTRIgine 100 MG TABLET PO (09:44)
[2021-08-17] MEDS: Apixaban 5 MG TABLET 10 MG PO (09:44)
[2021-08-17] MEDS: cloNIDine HCL 0.1 MG TABLET PO (09:44)
[2021-08-17 11:59] VITALS: BP 127/85; PULSE 90; RESP 18; TEMP 36.3; O2SAT 98
--- NOTE | 2021-08-17 12:11 | MHC.CM.PN ---
NURSE CHEMICAL MILLING PROCESSOR NOTE ELECTRONIC MEDICAL RECORD REVIEWED ALONG WITH CASE DISCUSSED AT MULTIPLE DISCIPLINARY ROUNDS PER [facility] PATIENT WILL BE DISCHARGED HOME TODAY AND WILL HAVE NEW SCRIPT FOR ELIBONNIE. THIS HAND IRONER HAS GIVEN PATIENT THE FREE 30-DAY TRIAL OFFER CARD TO TAKE TO HER PHARMACY AND THEN ASK PHARMACIST TO OBTAIN INSURANCE AUTHORIZATION FOR CONTINUATION OF MEDICATIONS ENCOURAGED HER TO FOLLOW UPM WITH PHARMNACY WELL WITH HER PRIMARY CARE DOCTOR DISCHARGE HOME NO SERVICES (NO ORDERS FOR ANY VNA AT D/C -DISCUSSED ON MULTIPLE DISCIPLINARY ROUNDS) TRANSPORTYATION PATIENT TO SELF ARRANGE PCP CHELE VERA PATIENT TO CALL FOR FOLLOW UP FOR 1 WEEK
--- NOTE | 2021-08-17 17:33 | P.DS_ITS ---
DS: Providers Provider Date of Service: 08/17/21 Date of admission: 08/13/21 19:44 Primary care physician: Meghna Parson MD DS: Diagnosis Discharge Diagnosis (1) 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: Status: Acute (2) Elevated troponin: Status: Acute (3) Pulmonary embolism: Status: Acute (4) DVT (deep venous thrombosis): Status: Acute (5) Common variable immunodeficiency: Status: Acute (6) GERD (gastroesophageal reflux disease): Status: Acute DS: Summary Hospital Course Hospital Course: Chief Complaint: Dyspnea with exertion This is a 56-year-old female with a past medical history of? anxiety,? depression, GERD, gastric bypass, hysterectomy, and sleep apnea? who presents to the emergency room? with complaints of dyspnea with exertion. ? She also complained of? substernal chest pressure? and left lower extremity edema? since Saturday.? In the emergency room, ? Vital signs were stable, ?satting 93 to 95%? on room air. ? Laboratory data significant for troponin was noted to be elevated to a 1032, BNP ? 218, D-dimer 4158 .? EKG nonischemic.? Chest CTA showing Extensive bilateral pulmonary emboli involving the central right and left pulmonary arteries and extending into the segmental and subsegmental pulmonary arteries. Additionally, ? left lower extremity venous doppler showing Occlusive thrombus throughout the left lower extremity including the profunda femoral vein, superficial femoral vein, femoral vein, popliteal vein, posterior tibial vein, and peroneal vein She was started on heparin drip.?Will be admitted to the ICU for closely? monitoring of? bilateral? pulmonary emboli Hospital course Patient admitted to intensive care unit with Bilateral pulmonary embolism with cor pulmonale and left lower extremity DVT treated with IV heparin subsequently transferred to medical floor and placed on Lovenox subQ That has been transitioned to Eliquis 10 mg twice a day for 1 week followed by Eliquis 5 mg b.i.d. patient shortness of breath and chest pressure has resolved, she has been ambulating in room, with stable oxygenation Therefore she is being discharged home with close outpatient follow-up with primary care physician, DVT likely due to sedentary lifestyle and obesity patient has been recommended to follow low-calorie diet and lose weight She was noted to have elevated troponin likely due to right ventricular strain, patient has been recommended to continue IVIG treatment for common variable immunodeficiency syndrome, and recommended to finish course of Ceftin for UTI diagnosis outpatient. Time Spent with Patient Time attestation: Total time spent providing and/or coordinating discharge services: Discharge coordination time: Greater than 30 minutes Quality: Stroke Does the patient have a stroke diagnosis?: No Physical Exam Vital Signs: Vital Signs: Last Vital Signs Temp 97.4 F 08/17/21 11:59 Pulse 90 08/17/21 11:59 Resp 18 08/17/21 11:59 BP 127/85 08/17/21 11:59 Pulse Ox 98 08/17/21 11:59 Body Mass Index 49.4 General alert orie nted x3 no acute d istress Neck no ne ck vein distension Chest clear bilat erally no adventit ious sounds Cardio vascular heart reg ular rate rhythm A bdomen benign, sof t, good bowel soun ds no organomegaly Extremities no pi tting edema Neuro nonfocal Psych pb ropriate affect Sk in no rash Discharge Plan Discharge Patient Disposition: Home, Self-Care Discharge Diagnosis: Bilateral pulmonary embolism Left lower extremity DVT Referrals: Meghna Parson MD [Primary Care Provider] - 1 Week Discharge Medications: New Eliquis 5 mg Tablet 10 mg PO BID Qty: 90 RF: 0 Continued venlafaxine 150 mg capsule,extended release 24hr 1 cap PO DAILY 30 Days Qty: 30 RF: 0 mirtazapine [Remeron] 30 mg tablet 30 mg PO BEDTIME 30 Days Qty: 30 RF: 0 hydroxyzine HCl 50 mg tablet 100 mg PO BEDTIME PRN (Reason: anxiety/sleep) RF: 0 risperidone 0.5 mg tablet 0.5 mg PO BID Qty: 28 RF: 0 venlafaxine [Effexor XR] 37.5 mg capsule,extended release 24hr 37.5 mg PO DAILY 30 Days Qty: 30 RF: 0 cefuroxime axetil 250 mg tablet 1 tab PO BID RF: 0 Hizentra 2 gram/10 mL (20 %) Syringe 65 ml SUBCUT SA@09 RF: 0 clonidine HCl 0.1 mg tablet 1 tab PO TID RF: 0 lamotrigine 100 mg tablet 1 tab PO DAILY RF: 0 clonazepam 1 mg tablet 1 tab PO TID RF: 0 Discharge Orders: Discharge Order (Routine); Ordered 08/17/21 Ordered By: Rae Coughlin Diet: advance to usual diet Activity on Discharge: As tolerated Stand Alone Forms: Patient Portal Discharge page, Work/School Release Care Plan Goals: Take Eliquis 5 mg 2 tablets twice daily for 6 more days followed by Eliquis 5 mg 1 tablet daily for next 4-6 months as per 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
[2021-08-17 19:50] LABS: Anti-Thrombin III Antigen 87 % (80-120)
[2021-08-17 22:42] LABS: Protein C Activity 107 % (70-180); Protein S Activity rflx Tot&Fr 62 % (60-140)
== END 2021-08-17 12:18 | disposition home or self-care (01) | DRG 134 ==
LOC: HO.ED 19:44 → HO.EDOVER 19:51 → HO.ICU 20:22 → HO.S3 08-15 18:10
PROVIDERS: Internal Medicine Cardiovascular Disease; Physician Assistant; Physician Assistant Medical; Surgery Vascular Surgery; Admitting Provider Registered Nurse Community Health; Emergency Provider Internal Medicine; PCP Internal Medicine; Visit Provider Hospitalist
PROC: 06H03DZ Insertion of Intraluminal Device into Inferior Vena Cava, Percutaneous Approach (ICD-10-PCS; principal; 2021-08-14 14:00)
DX: I26.09 Other pulmonary embolism with acute cor pulmonale (principal); N17.9 Acute kidney failure, unspecified; D83.9 Common variable immunodeficiency, unspecified; I82.402 Acute embolism and thrombosis of unspecified deep veins of left lower extremity; F43.10 Post-traumatic stress disorder, unspecified; F33.2 Major depressive disorder, recurrent severe without psychotic features; F41.1 Generalized anxiety disorder; E66.01 Morbid (severe) obesity due to excess calories; N39.0 Urinary tract infection, site not specified; Z68.42 Body mass index [BMI] 45.0-49.9, adult; R79.89 Other specified abnormal findings of blood chemistry; K21.9 Gastro-esophageal reflux disease without esophagitis; Z98.84 Bariatric surgery status; Z88.2 Allergy status to sulfonamides; Z20.822 Contact with and (suspected) exposure to COVID-19; Z79.01 Long term (current) use of anticoagulants; Z79.899 Other long term (current) drug therapy
CPT/HCPCS: 0241U; 36415; 37191; 71045; 71275; 80048; 80053; 81003; 81240; 81241; 82040; 83090; 83735; 83880; 84100; 84484; 85025; 85301; 85302; 85303; 85305; 85306; 85379; 85597; 85610; 85613; 85730; 86147; 93005; 93971; 94640; 96365; 96375; 99152; 99153; 99285; 99291; C1758; C1769; C1880; J1650; J2060; Q9967

== ENCOUNTER → 2021-08-31 13:45 | Outpatient (BNVA) | payer OTHER, SELFPAY | PROVIDERS: PCP Internal Medicine; Visit Provider Surgery Vascular Surgery ==

== ENCOUNTER 2021-09-10 15:03 | Emergency (ER) | payer OTHER, SELFPAY ==
--- NOTE | ~2021-09-10 | XR_ITS ---
EXAMINATION: XR CHEST CLINICAL INFORMATION: Chest pressure. Shortness of breath. COMPARISON: Most recent chest radiograph dated 08/13/2021. TECHNIQUE: Frontal view of the chest was obtained. FINDINGS: The lungs are clear. The cardiomediastinal silhouette is normal in size. There is no pleural effusion or pneumothorax. No acute osseous abnormality. XR/XR chest 1V IMPRESSION: No acute cardiopulmonary findings.
--- NOTE | ~2021-09-10 | CT_ITS ---
EXAMINATION: CT ANGIOGRAM CHEST WITH AND WITHOUT CONTRAST (CT PULMONARY ANGIOGRAM FOR PE) CLINICAL INFORMATION: Shortness of breath. Chest pressure. Bilateral saddle pulmonary embolism. COMPARISON: Chest radiograph done earlier the same day. CTA chest dated 08/13/2021. TECHNIQUE: Prior to contrast administration, noncontrast localization images were obtained. Subsequently, multidetector volumetric imaging was performed from the thoracic inlet to below the diaphragms following the administration of 71 mL Omnipaque 350 intravenous contrast. No contrast reaction reported. Sagittal, coronal, and MIP oblique sagittal reformatted images were obtained on the CT workstation, uploaded to PACS, and reviewed. This CT examination was performed using dose optimization techniques as appropriate, variously including the following: *Automated exposure control. *Adjustment of mA and/or kV according to patient size (this includes techniques or standardized protocols for targeted exams where dose is matched to indication/reason for exam; i.e. extremities or head). *Use of iterative reconstruction technique. Total exam dose-length product 484 mGy-cm. FINDINGS: QUALITY OF STUDY/CONTRAST BOLUS: Satisfactory. PULMONARY ARTERIES: Significant interval decrease in previously seen bilateral pulmonary emboli with near complete resolution. There are non-occlusive emboli within left upper and lower lobe segmental pulmonary arteries as well as within right upper lobe segmental pulmonary arteries. Findings are consistent with chronic, resolving pulmonary emboli. THORACIC AORTA: No aneurysm or dissection. LUNG: No pulmonary nodule, mass, or airspace consolidation. No evidence of parenchymal infarction. PLEURA: No pleural effusion or pneumothorax. MEDIASTINUM: Normal heart size. No pericardial effusion. No hilar or mediastinal lymphadenopathy. No evidence of septal bowing or right heart strain. CHEST WALL/AXILLA: No axillary or internal mammary lymphadenopathy. OSSEOUS STRUCTURES: No acute or suspicious osseous abnormality. UPPER ABDOMEN: Unremarkable. No reflux of contrast into the hepatic veins to suggest elevated right heart pressures. CT/CT angio chest PE protocol IMPRESSION: 1. Significant interval decrease with near complete resolution of previously seen bilateral pulmonary emboli. Persistent non-occlusive segmental bilateral pulmonary emboli. 2. No increasing or acute pulmonary embolism. 3. No pulmonary nodule, mass, or airspace consolidation. No evidence of parenchymal infarction. VTE: Negative.
--- NOTE | 2021-09-10 16:05 | ECG_ITS ---
Test Reason : SOB Blood Pressure : / mmHG Vent. Rate : 062 BPM Atrial Rate : 062 BPM P-R Int : 174 ms QRS Dur : 078 ms QT Int : 422 ms P-R-T Axes : 048 024 031 degrees QTc Int : 428 ms Normal sinus rhythm Normal ECG When compared with ECG of 13-AUG-2021 17:46, Vent. rate has decreased BY 35 BPM Referred By: Nyasia Irby Electronically Signed By:NANDO ROTHMAN MD
--- NOTE | 2021-09-10 16:05 | ED_ITS ---
HPI - SOB/Dyspnea General Chief Complaint: Dyspnea Stated Complaint: diff breathing Time Seen by Provider: 09/10/21 16:00 Source: patient Mode of arrival: ambulatory Limitations: no limitations History of Present Illness HPI Narrative: 56-year-old female presents with shortness of breath, pain on inspiration and fatigue for the past 2 days. She does report recent IVC filter on August 14 and diagnosis of bilateral saddle PEs and DVT on August 13. She has been taking her Eliquis twice a day on a daily basis. MD elicited complaint: shortness of breath, pain with inspiration and chest pain Pertinent past history: PE Onset (ago): day(s) (2) Context: recent illness Timing: constant Severity: moderate Exacerbating factors: exertion, movement and inspiration Relieving factors: nothing Known history of: PE and DVT Associated symptoms: pain with inspiration Related Data Home Medications Medication Instructions Recorded Confirmed hydroxyzine HCl 50 mg tablet 100 mg PO BEDTIME PRN 06/02/21 08/13/21 cefuroxime axetil 250 mg tablet 1 tab PO BID 08/13/21 08/13/21 immun glob G 2 gram/10mL(20 65 ml SUBCUT SA@08/13/21 08/14/21 %)-prol-IgA 0-50 mcg/mL subcutaneous syrin (Hizentra) clonazepam 1 mg tablet 1 tab PO TID 08/14/21 08/14/21 clonidine HCl 0.1 mg tablet 1 tab PO TID 08/14/21 08/14/21 lamotrigine 100 mg tablet 1 tab PO DAILY 08/14/21 08/14/21 Previous Rx's Medication Instructions Recorded venlafaxine 150 mg 1 cap PO DAILY 30 Days #30 cap 03/01/21 capsule,extended release 24 hr mirtazapine 30 mg tablet (Remeron) 30 mg PO BEDTIME 30 Days #30 tab 03/03/21 risperidone 0.5 mg tablet 0.5 mg PO BID #28 tab 06/14/21 venlafaxine 37.5 mg 37.5 mg PO DAILY 30 Days #30 cap 06/20/21 capsule,extended release 24 hr (Effexor XR) apixaban 5 mg tablet (Eliquis) 10 mg PO BID #90 tab 08/17/21 Allergies Allergy/AdvReac Type Severity Reaction Status Date / Time ciprofloxacin Allergy rash Verified 08/31/21 14:07 nitrofurantoin Allergy rash Verified 08/31/21 14:07 [From Macrobid] Sulfa (Sulfonamide Allergy rash Verified 08/31/21 14:07 Antibiotics) quetiapine [From Seroquel] AdvReac suicidal Verified 08/31/21 14:07 ideation Review of Systems Review of Systems: Constitutional: No Fever, No Chills ENT/Mouth: No sore throat, No Rhinorrhea, No Swallowing Difficulty Eyes: No Eye Pain, No Swelling, No Redness Cardiovascular: positive Chest pressure, positive SOB, No Orthopnea, positive Edema Respiratory: No Cough, No Sputum, No Wheezing, positive dyspnea Gastrointestinal: No Nausea, No Vomiting, No Diarrhea, No abdominal Pain, No Hematochezia, No Melena Genitourinary: No Dysuria, No Urinary Frequency, No Hematuria Musculoskeletal: No joint pain, No Myalgias Skin: No Skin Lesions, No rash Neuro: No Weakness, No Numbness, No Dizziness, No Headache Psych: No Anxiety/Panic, No Depression Heme/Lymph: No Bruising, No Lymphadenopathy Endocrine: No Polyuria, No Polydipsia Yes all other systems are reviewed and are negative [facility] Past Medical History Attestation statement: The following information was validated with the patient. Source: old records reviewed Medical History Anxiety Common variable immunodeficiency Common variable immunodeficiency Depression Encounter for colonoscopy following colon polyp removal NIURKA (generalized anxiety disorder) GERD (gastroesophageal reflux disease) GERD (gastroesophageal reflux disease) History of sciatica Hypertension MDD (major depressive disorder), recurrent severe, without psychosis PTSD (post-traumatic stress disorder) Sleep apnea Surgical History History of gastric bypass History of hysterectomy Social History Social History Household Members: None Housing: Apartment Do you presently have visiting nurse or other home services: No Alcohol intake: never Patient Tobacco Use Status: Never used Tobacco Advance Directives: No Advance Directives Information Provided: No service: No Current occupational status: employed Sexual orientation: did not discuss. Physical Exam Vital Signs: Vital Signs: Last Vital Signs Temp 98.0 F 09/10/21 16:37 Pulse 65 09/10/21 18:43 Resp 12 09/10/21 18:43 BP 133/78 09/10/21 18:43 Pulse Ox 99 09/10/21 16:37 Body Mass Index 47.8 Appearance: Alert. Oriented X3. No acute distress. Eyes: Pupils equal, round and reactive to light. ENT: Pharynx normal. moist Mucous membranes Neck: Normal inspection. Neck supple. no tracheal stridor. CVS: Normal heart rate and rhythm. Apical pulse equal pulses to extremities. Respiratory: No respiratory distress. Breath sounds normal. Abdomen: Soft and nontender. Skin: Skin warm and dry. Normal skin color. Normal skin turgor. Extremities: Mild bilateral extremity edema Neuro: No motor deficit. No sensory deficit. cranial nerves 2-12 intact. Course Course Course Narrative: 56-year-old female presents with pain on inspiration, shortness of breath, fatigue the past 2 days. Was diagnosed with bilateral saddle PEs and DVT August 13 with an IVC filter placed on August 14. Patient has been taking her Eliquis twice a day and has not missed any doses. Does not report any flights, trauma, or any other unusual symptoms at this time. Based on her past history we will repeat CT PE , rule out ACS. CT PE study indicates improvement. I did discuss this case with Dr. Martin, plan is to continue Eliquis as prescribed and for discharge home. Patient does understand that she must follow-up with primary care physician and or vascular as scheduled. Patient verbalized understanding of and agrees to plan of care discharge home. Consultations Consultation #1: Veronica Time: 18:00 MDM - SOB/Dyspnea Differential Diagnosis Differential diagnosis: Likely congestive heart failure, pneumonia, pulmonary embolism and anemia Medical Records Attestation: I reviewed the patient's medical records. Lab Data Attestation: I reviewed the patient's lab results. Result diagrams: 09/10/21 16:52 09/10/21 17:54 Labs: Lab Results 09/10/21 09/10/21 09/10/21 Range/Units 16:52 16:52 16:52 WBC 8.7 (4.8-10.8) X10*3/uL RBC 4.93 (4.20-5.50) X10*6/uL Hgb 14.3 (12.0-16.0) g/dl Hct 44.0 (37.0-47.0) % MCV 89.2 (80.0-98.0) fL MCH 29.0 (27.0-33.0) pg MCHC 32.5 (31.0-35.0) g/dl RDW 13.5 (11.0-16.0) % Plt Count 276 (160-400) X10*3/uL MPV 9.5 (9.4-12.3) fL Immature Gran % (Auto) 1.1 H (0.0-0.4) % Neut % (Auto) 57.9 (45-73) % Lymph % (Auto) 30.4 (20-40) % [place] % (Auto) 7.9 (2-11) % Eos % (Auto) 2.4 (0-4) % Baso % (Auto) 0.3 (0-2) % Lymph # (Auto) 2.7 (1.2-4.9) X10*3/uL [place] # (Auto) 0.7 (0.1-1.2) X10*3/uL Eos # (Auto) 0.2 (0.0-0.4) X10*3/uL Baso # (Auto) 0.0 (0.0-0.2) X10*3/uL Abs Immat Gran (auto) 0.10 H (0.00-0.03) X10*3/uL Absolute Neuts (auto) 5.1 (2.0-8.3) x10*3/uL Absolute Nucleated RBC 0.000 (0.0-0.012) X10*3/uL Nucleated RBC % (auto) 0.0 (0.0-0.2) /100WBC PT 13.8 H (9.9-13.0) SEC INR 1.2 H (0.9-1.1) APTT 42.7 H (24.1-38.0) SEC Sodium (135-145) mmol/L Potassium (3.3-5.1) mmol/L Chloride (96-108) mmol/L Carbon Dioxide (22-29) mmol/L Anion Gap (12-20) BUN (9-16) mg/dL Creatinine (0.5-1.4) mg/dL Estim Creat Clear Calc Estimated GFR Random Glucose (60-115) mg/dL Calcium (8.4-10.2) mg/dL Total Bilirubin (0.0-1.0) mg/dL Direct Bilirubin (0.0-0.5) mg/dL AST (5-31) U/L ALT (0-31) U/L Alkaline Phosphatase (39-117) U/L Troponin I High Sens 5.7 D (<3.5-17.0) ng/L B-Natriuretic Peptide 18 (<100) pg/mL Total Protein (6.5-8.0) g/dL Albumin (3.5-5.0) g/dL Lipase (8-78) U/L 09/10/21 Range/Units 17:54 WBC (4.8-10.8) X10*3/uL RBC (4.20-5.50) X10*6/uL Hgb (12.0-16.0) g/dl Hct (37.0-47.0) % MCV (80.0-98.0) fL MCH (27.0-33.0) pg MCHC (31.0-35.0) g/dl RDW (11.0-16.0) % Plt Count (160-400) X10*3/uL MPV (9.4-12.3) fL Immature Gran % (Auto) (0.0-0.4) % Neut % (Auto) (45-73) % Lymph % (Auto) (20-40) % [place] % (Auto) (2-11) % Eos % (Auto) (0-4) % Baso % (Auto) (0-2) % Lymph # (Auto) (1.2-4.9) X10*3/uL [place] # (Auto) (0.1-1.2) X10*3/uL Eos # (Auto) (0.0-0.4) X10*3/uL Baso # (Auto) (0.0-0.2) X10*3/uL Abs Immat Gran (auto) (0.00-0.03) X10*3/uL Absolute Neuts (auto) (2.0-8.3) x10*3/uL Absolute Nucleated RBC (0.0-0.012) X10*3/uL Nucleated RBC % (auto) (0.0-0.2) /100WBC PT (9.9-13.0) SEC INR (0.9-1.1) APTT (24.1-38.0) SEC Sodium 140 (135-145) mmol/L Potassium 4.6 (3.3-5.1) mmol/L Chloride 107 (96-108) mmol/L Carbon Dioxide 26 (22-29) mmol/L Anion Gap 12 (12-20) BUN 14 (9-16) mg/dL Creatinine 1.08 (0.5-1.4) mg/dL Estim Creat Clear Calc 74.7 Estimated GFR 53 Random Glucose 80 (60-115) mg/dL Calcium 9.5 D (8.4-10.2) mg/dL Total Bilirubin 0.2 (0.0-1.0) mg/dL Direct Bilirubin < 0.2 (0.0-0.5) mg/dL AST 19 (5-31) U/L ALT 9 (0-31) U/L Alkaline Phosphatase 96 (39-117) U/L Troponin I High Sens (<3.5-17.0) ng/L B-Natriuretic Peptide (<100) pg/mL Total Protein 6.4 L (6.5-8.0) g/dL Albumin 3.9 (3.5-5.0) g/dL Lipase 62 (8-78) U/L Imaging Data Chest x-ray: Attestation: I personally reviewed and interpreted this imaging study as follows: Radiologist's impression: EXAMINATION: XR CHEST CLINICAL INFORMATION: Chest pressure. Shortness of breath. COMPARISON: Most recent chest radiograph dated 08/13/2021. TECHNIQUE: Frontal view of the chest was obtained. FINDINGS: The lungs are clear. The cardiomediastinal silhouette is normal in size. There is no pleural effusion or pneumothorax. No acute osseous abnormality. XR/XR chest 1V IMPRESSION: No acute cardiopulmonary findings. CT PE: Attestation: I personally reviewed and interpreted this imaging study as follows: Radiologist's impression: EXAMINATION: CT ANGIOGRAM CHEST WITH AND WITHOUT CONTRAST (CT PULMONARY ANGIOGRAM FOR PE) CLINICAL INFORMATION: Shortness of breath. Chest pressure. Bilateral saddle pulmonary embolism. COMPARISON: Chest radiograph done earlier the same day. CTA chest dated 08/13/2021. ? TECHNIQUE: Prior to contrast administration, noncontrast localization images were obtained. ? Subsequently, multidetector volumetric imaging was performed from the thoracic inlet to below the diaphragms following the administration of 71 mL Omnipaque 350 intravenous contrast. No contrast reaction reported. Sagittal, coronal, and MIP oblique sagittal reformatted images were obtained on the CT workstation, uploaded to PACS, and reviewed. This CT examination was performed using dose optimization techniques as appropriate, variously including the following: *Automated exposure control. *Adjustment of mA and/or kV according to patient size (this includes techniques or standardized protocols for targeted exams where dose is matched to indication/reason for exam; i.e. extremities or head). *Use of iterative reconstruction technique. Total exam dose-length product 484 mGy-cm. FINDINGS: QUALITY OF STUDY/CONTRAST BOLUS: Satisfactory. PULMONARY ARTERIES: Significant interval decrease in previously seen bilateral pulmonary emboli with near complete resolution. There are non-occlusive emboli within left upper and lower lobe segmental pulmonary arteries as well as within right upper lobe segmental pulmonary arteries. Findings are consistent with chronic, resolving pulmonary emboli.? THORACIC AORTA: No aneurysm or dissection. LUNG: No pulmonary nodule, mass, or airspace consolidation. No evidence of parenchymal infarction. PLEURA: No pleural effusion or pneumothorax. MEDIASTINUM: Normal heart size. No pericardial effusion. No hilar or mediastinal lymphadenopathy. No evidence of septal bowing or right heart strain. CHEST WALL/AXILLA: No axillary or internal mammary lymphadenopathy. OSSEOUS STRUCTURES: No acute or suspicious osseous abnormality.? UPPER ABDOMEN: Unremarkable. No reflux of contrast into the hepatic veins to suggest elevated right heart pressures. CT/CT angio chest PE protocol IMPRESSION: 1. Significant interval decrease with near complete resolution of previously seen bilateral pulmonary emboli. Persistent non-occlusive segmental bilateral pulmonary emboli. ? 2. No increasing or acute pulmonary embolism. ? 3. No pulmonary nodule, mass, or airspace consolidation. No evidence of parenchymal infarction. ? VTE: Negative. ECG Data Attestation: I personally reviewed and interpreted this ECG as follows: Critical Care Time Critical Care Time Critical Care Time: Yes Total Critical Care Time: 40 Attestation: I have personally provided critical care time exclusive of time spent on separately billable procedures. Time includes review of laboratory data, radiol ogy results, discussion with consultants, and monitoring for potential decompensation. Interventions were performed as documented. Discharge Plan Discharge Clinical Impression: Pulmonary embolism Qualifiers: Pulmonary embolism type: unspecified Chronicity: chronic Acute cor pulmonale presence: without acute cor pulmonale Qualified Code(s): I27.82 - Chronic pulmonary embolism Patient Disposition: Home, Self-Care Instructions: Deep Vein Thrombosis (ED) Additional Instructions: you evaluated for chest pressure, shortness of breath, and pain on inspiration. CT scan PE study shows improvement to bilateral pulmonary embolisms. Please continue to take her Eliquis as prescribed. Follow-up with primary care physician as scheduled. Thank you for choosing this emergency department for evaluation. Please follow-up with primary care physician as needed. Return to the emergency department for any new, concerning, or worsening symptoms. Prescriptions: No Action venlafaxine 150 mg capsule,extended release 24hr 1 cap PO DAILY 30 Days Qty: 30 RF: 0 mirtazapine [Remeron] 30 mg tablet 30 mg PO BEDTIME 30 Days Qty: 30 RF: 0 hydroxyzine HCl 50 mg tablet 100 mg PO BEDTIME PRN (Reason: anxiety/sleep) RF: 0 risperidone 0.5 mg tablet 0.5 mg PO BID Qty: 28 RF: 0 venlafaxine [Effexor XR] 37.5 mg capsule,extended release 24hr 37.5 mg PO DAILY 30 Days Qty: 30 RF: 0 cefuroxime axetil 250 mg tablet 1 tab PO BID RF: 0 Hizentra 2 gram/10 mL (20 %) Syringe 65 ml SUBCUT SA@09 RF: 0 clonidine HCl 0.1 mg tablet 1 tab PO TID RF: 0 lamotrigine 100 mg tablet 1 tab PO DAILY RF: 0 clonazepam 1 mg tablet 1 tab PO TID RF: 0 Eliquis 5 mg Tablet 10 mg PO BID Qty: 90 RF: 0 Interventions: ED Discharge Assessment Last Done: 09/10/21 18:49 Discharge Date/Time: 09/10/21 18:58
[2021-09-10 16:37] VITALS: PULSE 71; RESP 12; TEMP 36.7; O2SAT 99; BMI 47.8
[2021-09-10 16:57] LABS: MANUAL DIFF FLAG NO
[2021-09-10 17:04] LABS: INTERNATIONAL NORM RATIO 1.2 (0.9-1.1); Prothrombin Time 13.8 SEC (9.9-13.0)
[2021-09-10 17:05] LABS: Basophils Percent Auto 0.3 % (0-2); Eosinophils Absolute Auto 0.2 X10*3/uL (0.0-0.4); Eosinophils Percent Auto 2.4 % (0-4); Hemoglobin 14.3 g/dl (12.0-16.0); Imm Gran Pct Auto 1.1 % (0.0-0.4); Lymphocytes Absolute Auto 2.7 X10*3/uL (1.2-4.9); Lymphocytes Percent Auto 30.4 % (20-40); Mean Corpuscular HGB Conc 32.5 g/dl (31.0-35.0); Mean Corpuscular Volume 89.2 fL (80.0-98.0); Mean Platelet Volume 9.5 fL (9.4-12.3); Monocytes Absolute Auto 0.7 X10*3/uL (0.1-1.2); Monocytes Percent Auto 7.9 % (2-11); Neutrophils Absolute Auto 5.1 x10*3/uL (2.0-8.3); Neutrophils Percent Auto 57.9 % (45-73); Platelet Count 276 X10*3/uL (160-400); Red Blood Count 4.93 X10*6/uL (4.20-5.50); Red Cell Distribution Width 13.5 % (11.0-16.0); White Blood Count 8.7 X10*3/uL (4.8-10.8)
[2021-09-10 17:06] LABS: Partial Thromboplastin Time 42.7 SEC (24.1-38.0)
[2021-09-10] MEDS: iohexoL 350 MG/ML 100 ML INFUS..BTL IV (17:13)
[2021-09-10 17:17] LABS: B Type Natriuretic Peptide 18 pg/mL (<100); Troponin-I High Sensitivity 5.7 ng/L (<3.5-17.0)
[2021-09-10 18:19] LABS: Alanine Aminotransferase 9 U/L (0-31); Albumin Level 3.9 g/dL (3.5-5.0); Alkaline Phosphatase 96 U/L (39-117); Anion Gap 12 (12-20); Aspartate Amino Transferase 19 U/L (5-31); Bilirubin Direct < 0.2 mg/dL (0.0-0.5); Bilirubin Total 0.2 mg/dL (0.0-1.0); Blood Urea Nitrogen 14 mg/dL (9-16); Calcium 9.5 mg/dL (8.4-10.2); Carbon Dioxide 26 mmol/L (22-29); Chloride 107 mmol/L (96-108); Creatinine Clr Calc Pharmacy 74.7; Estimated Glomerular Filt Rate 53; Glucose Random 80 mg/dL (60-115); Lipase 62 U/L (8-78); Potassium 4.6 mmol/L (3.3-5.1); Sodium 140 mmol/L (135-145); Total Protein 6.4 g/dL (6.5-8.0)
[2021-09-10 18:43] VITALS: BP 133/78; PULSE 65; RESP 12
== END 2021-09-10 18:58 | disposition home or self-care (01) ==
PROVIDERS: Nurse Practitioner Family; Emergency Provider Internal Medicine; PCP Internal Medicine
DX: I27.82 Chronic pulmonary embolism (principal); R06.02 Shortness of breath; R53.83 Other fatigue; I10 Essential (primary) hypertension; Z86.718 Personal history of other venous thrombosis and embolism; Z79.01 Long term (current) use of anticoagulants
CPT/HCPCS: 36415; 71045; 71275; 80048; 80076; 83690; 83880; 84484; 85025; 85610; 85730; 93005; 99284; 99291; Q9967

== ENCOUNTER 2021-09-27 08:54 | Emergency (ER) | payer OTHER, SELFPAY ==
--- NOTE | ~2021-09-27 | CT_ITS ---
EXAMINATION: CT ANGIOGRAM OF THE CHEST WITH AND WITHOUT CONTRAST (CT PULMONARY ANGIOGRAM FOR PE) CLINICAL INFORMATION: Reason for Exam chest pain prior PE COMPARISON: CTA chest 09/10/2021, 08/13/2021, left lower extremity venous Doppler 08/13/2021, IVC filter placement 08/14/2021. TECHNIQUE: Prior to contrast administration, noncontrast localization images were obtained. Subsequently, multidetector volumetric imaging was performed from the thoracic inlet to below the diaphragms following the administration of 75 mL Omnipaque 350 intravenous contrast. Sagittal, coronal, and MIP oblique sagittal reformatted images were obtained on the CT workstation, uploaded to PACS, and reviewed. This CT examination was performed using dose optimization techniques as appropriate, variously including the following: *Automated exposure control *Adjustment of mA and/or kV according to patient size (this includes techniques or standardized protocols for targeted exams where dose is matched to indication/reason for exam; i.e. extremities or head) *Use of iterative reconstruction technique Total exam dose-length product 875 mGy-cm FINDINGS: QUALITY OF STUDY/CONTRAST BOLUS: Satisfactory. PULMONARY ARTERIES: There is no acute central or segmental pulmonary emboli. Some minor linear stranding is again present in the right interlobar pulmonary artery and left lower lobe pulmonary artery, representing chronic sequela from recent acute PE. Other chronic pulmonary embolism findings appear to have resolved since prior imaging. THORACIC AORTA: No aneurysm or dissection. LUNG: The central airways are clear. No endobronchial lesion or bronchiectasis. No lobar or segmental airspace consolidation or groundglass opacities. PLEURA: No pleural effusion or pneumothorax. MEDIASTINUM: Normal heart size. No pericardial effusion. No hilar or mediastinal lymphadenopathy. No evidence of septal bowing or right heart strain. CHEST WALL/AXILLA: No axillary or internal mammary lymphadenopathy. OSSEOUS STRUCTURES: No acute or suspicious osseous abnormality. UPPER ABDOMEN: Unremarkable. No reflux of contrast into the hepatic veins to suggest elevated right heart pressures. CT/CT angio chest PE protocol IMPRESSION: 1. No acute pulmonary embolism. No thoracic aortic dissection. 2. Sequela from prior PE with minor linear stranding in right interlobar pulmonary artery and left lower lobe pulmonary artery. Other chronic PE findings resolved. 3. No pneumothorax, airspace consolidation, or effusion. VTE: negative
[2021-09-27 09:41] VITALS: BP 135/60; PULSE 83; RESP 16; TEMP 36.2; O2SAT 96; BMI 48.5
[2021-09-27 10:09] LABS: D Dimer High Sensitivity < 150 NG/ML
[2021-09-27 10:30] LABS: Anion Gap 10 (12-20); Blood Urea Nitrogen 21 mg/dL (9-16); Calcium 9.2 mg/dL (8.4-10.2); Carbon Dioxide 25 mmol/L (22-29); Chloride 111 mmol/L (96-108); Creatinine Clr Calc Pharmacy 79.1; Estimated Glomerular Filt Rate 56; Glucose Random 96 mg/dL (60-115); Potassium 4.3 mmol/L (3.3-5.1); Sodium 142 mmol/L (135-145)
--- NOTE | 2021-09-27 14:11 | ECG_ITS ---
Test Reason : SOB Blood Pressure : / mmHG Vent. Rate : 063 BPM Atrial Rate : 063 BPM P-R Int : 174 ms QRS Dur : 076 ms QT Int : 422 ms P-R-T Axes : 045 016 026 degrees QTc Int : 431 ms Normal sinus rhythm Low voltage QRS Borderline ECG When compared with ECG of 10-SEP-2021 18:16, No significant change was found Referred By: Nikki Chopra Electronically Signed By:DEVIN OMER MD
--- NOTE | 2021-09-27 14:13 | ED.CHESTPAIN ---
HPI - Chest Pain General Chief Complaint: General Medical Stated Complaint: lung breast pain diff breathing Time Seen by Provider: 09/27/21 14:10 Source: patient Mode of arrival: ambulatory Limitations: no limitations History of Present Illness MD complaint: chest pain Pertinent past history: other (PE back in july on eliquis BID and has IVC filter for LLE DVT had saddle at that time) Onset (ago): hour(s) (woke up with symptoms this AM) Timing of current episode: constant Prior episodes: Yes Onset: during rest Pain location: left chest, right chest and posterior Pain radiation: none Severity: moderate Quality: sharp Relieving factors: nothing Exacerbating factors: inspiration Context: history of DVT/PE Associated symptoms: dyspnea Treatment prior to arrival: none Related Data Home Medications Medication Instructions Recorded Confirmed hydroxyzine HCl 50 mg tablet 100 mg PO BEDTIME PRN 06/02/21 08/13/21 cefuroxime axetil 250 mg tablet 1 tab PO BID 08/13/21 08/13/21 immun glob G 2 gram/10mL(20 65 ml SUBCUT SA@08/13/21 08/14/21 %)-prol-IgA 0-50 mcg/mL subcutaneous syrin (Hizentra) clonazepam 1 mg tablet 1 tab PO TID 08/14/21 08/14/21 clonidine HCl 0.1 mg tablet 1 tab PO TID 08/14/21 08/14/21 lamotrigine 100 mg tablet 1 tab PO DAILY 08/14/21 08/14/21 Previous Rx's Medication Instructions Recorded venlafaxine 150 mg 1 cap PO DAILY 30 Days #30 cap 03/01/21 capsule,extended release 24 hr mirtazapine 30 mg tablet (Remeron) 30 mg PO BEDTIME 30 Days #30 tab 03/03/21 risperidone 0.5 mg tablet 0.5 mg PO BID #28 tab 06/14/21 venlafaxine 37.5 mg 37.5 mg PO DAILY 30 Days #30 cap 06/20/21 capsule,extended release 24 hr (Effexor XR) apixaban 5 mg tablet (Eliquis) 10 mg PO BID #90 tab 08/17/21 Allergies Allergy/AdvReac Type Severity Reaction Status Date / Time ciprofloxacin Allergy rash Verified 08/31/21 14:07 nitrofurantoin Allergy rash Verified 08/31/21 14:07 [From Macrobid] Sulfa (Sulfonamide Allergy rash Verified 08/31/21 14:07 Antibiotics) quetiapine [From Seroquel] AdvReac suicidal Verified 08/31/21 14:07 ideation Review of Systems Review of Systems: Constitutional : No Weight loss, No Fever, No Chills ENT/Mouth : No sore throat, No Rhinorrhea Eyes: No Eye Pain, No Swelling Cardiovascular : pos Chest Pain, pos SOB, no Dyspnea on Exertion, No Orthopnea, No Edema, No Palpitations Respiratory : No Cough, No Sputum Gastrointestinal : no Nausea, No Vomiting, No Diarrhea, No abdominal Pain, No Hematochezia, No Melena Genitourinary : No Dysuria, No Urinary Frequency Musculoskeletal : No joint pain, No Myalgias, No Joint Swelling Skin : No Skin Lesions, No rash Neuro : No Weakness, No Numbness, No Dizziness, No Headache Psych : No Anxiety/Panic, No Depression Heme/Lymph: No Bruising, No Lymphadenopathy Endocrine : No Polyuria, No Polydipsia All other systems reviewed and are negative [facility] Past Medical History Attestation statement: The following information was validated with the patient. 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 Anxiety Common variable immunodeficiency Common variable immunodeficiency Depression DVT (deep venous thrombosis) Encounter for colonoscopy following colon polyp removal NIURKA (generalized anxiety disorder) GERD (gastroesophageal reflux disease) GERD (gastroesophageal reflux disease) History of sciatica Hypertension MDD (major depressive disorder), recurrent severe, without psychosis PTSD (post-traumatic stress disorder) Sleep apnea Surgical History History of gastric bypass History of hysterectomy Social History Social History Household Members: None Housing: Apartment Do you presently have visiting nurse or other home services: No Alcohol intake: never Patient Tobacco Use Status: Never used Tobacco Use of substances other than those prescribed or required for medical reasons: No Advance Directives: Yes Advance Directives Information Provided: Yes Advance Directives on File: No service: No Current occupational status: employed Sexual orientation: did not discuss. Physical Exam Vital Signs: Vital Signs: Last Vital Signs Temp 97.1 F 09/27/21 09:41 Pulse 73 09/27/21 14:44 Resp 17 09/27/21 14:44 BP 143/78 H 09/27/21 14:44 Pulse Ox 98 09/27/21 14:44 BMI result Body Mass Index 48.5 Appearance: Alert. Oriented X3. No acute distress. Eyes: Pupils equal, round and reactive to light. ENT: Pharynx normal. Neck: Normal inspection. Neck supple. CVS: Normal heart rate and rhythm. Pulses normal. Respiratory: No respiratory distress. Breath sounds normal. Abdomen: Soft and non-tender. Skin: Skin warm and dry. Normal skin color. Normal skin turgor. Extremities: No lower extremity edema. No calf ttp Neuro: Oriented X 3. No motor deficit. No sensory deficit. Course Course Course Narrative: trop flat, COVID negative CTA no acute findings signed out pending UA - Dr. Hunt [facility] - Chest Pain MDM Narrative Medical decision making narrative: 56 yo female with reported unprovoked massive PE back in July on eliquis and IVC filter - here with R and left posterior rib pain feels like prior PE has not missed doses - at this time will need labs, CTA, UA , EKG troponin x1, dispo per results and findings. Unlikely PE given medications and IVC filter. Lab Data Result diagrams: 09/27/21 14:42 09/27/21 09:56 Labs: Lab Results 09/27/21 09/27/21 09/27/21 Range/Units 09:56 09:56 14:42 WBC 7.7 (4.8-10.8) X10*3/uL RBC 4.83 (4.20-5.50) X10*6/uL Hgb 13.9 (12.0-16.0) g/dl Hct 42.5 (37.0-47.0) % MCV 88.0 (80.0-98.0) fL MCH 28.8 (27.0-33.0) pg MCHC 32.7 (31.0-35.0) g/dl RDW 14.0 (11.0-16.0) % Plt Count 278 (160-400) X10*3/uL MPV 9.3 L (9.4-12.3) fL Immature Gran % (Auto) 1.0 H (0.0-0.4) % Neut % (Auto) 57.8 (45-73) % Lymph % (Auto) 29.8 (20-40) % Kimball % (Auto) 8.4 (2-11) % Eos % (Auto) 2.6 (0-4) % Baso % (Auto) 0.4 (0-2) % Lymph # (Auto) 2.3 (1.2-4.9) X10*3/uL Kimball # (Auto) 0.6 (0.1-1.2) X10*3/uL Eos # (Auto) 0.2 (0.0-0.4) X10*3/uL Baso # (Auto) 0.0 (0.0-0.2) X10*3/uL Abs Immat Gran (auto) 0.08 H (0.00-0.03) X10*3/uL Absolute Neuts (auto) 4.4 (2.0-8.3) x10*3/uL Absolute Nucleated RBC 0.000 (0.0-0.012) X10*3/uL Nucleated RBC % (auto) 0.0 (0.0-0.2) /100WBC D-Dimer High Sensitivty < 150 NG/ML Sodium 142 (135-145) mmol/L Potassium 4.3 (3.3-5.1) mmol/L Chloride 111 H (96-108) mmol/L Carbon Dioxide 25 (22-29) mmol/L Anion Gap 10 L (12-20) BUN 21 H (9-16) mg/dL Creatinine 1.03 (0.5-1.4) mg/dL Estim Creat Clear Calc 79.1 Estimated GFR 56 Random Glucose 96 (60-115) mg/dL Calcium 9.2 (8.4-10.2) mg/dL Troponin I High Sens (<3.5-17.0) ng/L COVID-19 ([facility]) (Negative) COVID-19 Clin Com 09/27/21 09/27/21 Range/Units 14:42 14:42 WBC (4.8-10.8) X10*3/uL RBC (4.20-5.50) X10*6/uL Hgb (12.0-16.0) g/dl Hct (37.0-47.0) % MCV (80.0-98.0) fL MCH (27.0-33.0) pg MCHC (31.0-35.0) g/dl RDW (11.0-16.0) % Plt Count (160-400) X10*3/uL MPV (9.4-12.3) fL Immature Gran % (Auto) (0.0-0.4) % Neut % (Auto) (45-73) % Lymph % (Auto) (20-40) % Kimball % (Auto) (2-11) % Eos % (Auto) (0-4) % Baso % (Auto) (0-2) % Lymph # (Auto) (1.2-4.9) X10*3/uL Kimball # (Auto) (0.1-1.2) X10*3/uL Eos # (Auto) (0.0-0.4) X10*3/uL Baso # (Auto) (0.0-0.2) X10*3/uL Abs Immat Gran (auto) (0.00-0.03) X10*3/uL Absolute Neuts (auto) (2.0-8.3) x10*3/uL Absolute Nucleated RBC (0.0-0.012) X10*3/uL Nucleated RBC % (auto) (0.0-0.2) /100WBC D-Dimer High Sensitivty NG/ML Sodium (135-145) mmol/L Potassium (3.3-5.1) mmol/L Chloride (96-108) mmol/L Carbon Dioxide (22-29) mmol/L Anion Gap (12-20) BUN (9-16) mg/dL Creatinine (0.5-1.4) mg/dL Estim Creat Clear Calc Estimated GFR Random Glucose (60-115) mg/dL Calcium (8.4-10.2) mg/dL Troponin I High Sens 4.2 (<3.5-17.0) ng/L COVID-19 ([facility]) Negative (Negative) COVID-19 Clin Com See Note ECG Data ECG #1: Attestation: I personally reviewed and interpreted this ECG as follows: ECG interpretation date: 09/27/21 ECG interpretation time: 14:58 Interpretation: Rate: 63 Rhythm: NSR [place]: normal Normal P waves. Normal ILYA. Normal QRS complex. ST T wave : no ASIF, normal qTC: normal prior studies: no acute ischemia The study has been interpreted contemporaneously by me. . Discharge Plan Discharge Clinical Impression: Posterior chest pain Patient Disposition: Home, Self-Care Instructions: Chest Pain (ED) Additional Instructions: return to ED for any worsening symptoms or concerns EKG, troponin heart markers normal, CTA no blood clots COVID negative Prescriptions: No Action venlafaxine 150 mg capsule,extended release 24hr 1 cap PO DAILY 30 Days Qty: 30 RF: 0 mirtazapine [Remeron] 30 mg tablet 30 mg PO BEDTIME 30 Days Qty: 30 RF: 0 hydroxyzine HCl 50 mg tablet 100 mg PO BEDTIME PRN (Reason: anxiety/sleep) RF: 0 risperidone 0.5 mg tablet 0.5 mg PO BID Qty: 28 RF: 0 venlafaxine [Effexor XR] 37.5 mg capsule,extended release 24hr 37.5 mg PO DAILY 30 Days Qty: 30 RF: 0 cefuroxime axetil 250 mg tablet 1 tab PO BID RF: 0 Hizentra 2 gram/10 mL (20 %) Syringe 65 ml SUBCUT SA@09 RF: 0 clonidine HCl 0.1 mg tablet 1 tab PO TID RF: 0 lamotrigine 100 mg tablet 1 tab PO DAILY RF: 0 clonazepam 1 mg tablet 1 tab PO TID RF: 0 Eliquis 5 mg Tablet 10 mg PO BID Qty: 90 RF: 0 Referrals: Meghna Parson MD [Primary Care Provider] - 2 days (if not better) Stand Alone Forms: Work/School Release
[2021-09-27 14:44] VITALS: BP 143/78; PULSE 73; RESP 17; O2SAT 98
[2021-09-27 14:48] LABS: MANUAL DIFF FLAG NO
[2021-09-27 14:52] LABS: Basophils Percent Auto 0.4 % (0-2); Eosinophils Absolute Auto 0.2 X10*3/uL (0.0-0.4); Eosinophils Percent Auto 2.6 % (0-4); Hematocrit 42.5 % (37.0-47.0); Hemoglobin 13.9 g/dl (12.0-16.0); Imm Gran Abs Auto 0.08 X10*3/uL (0.00-0.03); Lymphocytes Absolute Auto 2.3 X10*3/uL (1.2-4.9); Lymphocytes Percent Auto 29.8 % (20-40); Mean Corpuscular HGB Conc 32.7 g/dl (31.0-35.0); Mean Corpuscular Hemoglobin 28.8 pg (27.0-33.0); Mean Platelet Volume 9.3 fL (9.4-12.3); Monocytes Absolute Auto 0.6 X10*3/uL (0.1-1.2); Monocytes Percent Auto 8.4 % (2-11); Neutrophils Absolute Auto 4.4 x10*3/uL (2.0-8.3); Neutrophils Percent Auto 57.8 % (45-73); Platelet Count 278 X10*3/uL (160-400); Red Blood Count 4.83 X10*6/uL (4.20-5.50); White Blood Count 7.7 X10*3/uL (4.8-10.8)
[2021-09-27 15:05] LABS: COVID-19 Test Negative (Negative); IDNOW Serial# 9DD0AD1C
[2021-09-27 15:11] LABS: Troponin-I High Sensitivity 4.2 ng/L (<3.5-17.0)
[2021-09-27] MEDS: iohexoL 350 MG/ML 100 ML INFUS..BTL IV (15:35)
[2021-09-27 16:51] VITALS: BP 151/98; PULSE 65; RESP 18; O2SAT 99
[2021-09-27 17:00] LABS: Appearance Urine CLEAR; Color Urine YELLOW; Glucose Urine UA NEG (NEG); Leukocyte Esterase Urine NEG (NEG); Nitrite Urine NEG (NEG); PH 5.5 (5.0-8.0); Urine Blood NEG (NEG); Urine Ketones NEG (NEG); Urine Protein NEG (NEG-TRACE)
== END 2021-09-27 17:46 | disposition home or self-care (01) ==
PROVIDERS: Emergency Medicine; Emergency Provider Emergency Medicine; PCP Internal Medicine
DX: R07.89 Other chest pain (principal); I10 Essential (primary) hypertension; Z86.718 Personal history of other venous thrombosis and embolism; Z86.711 Personal history of pulmonary embolism; Z79.01 Long term (current) use of anticoagulants; Z20.822 Contact with and (suspected) exposure to COVID-19
CPT/HCPCS: 36415; 71275; 80048; 81003; 84484; 85025; 85379; 87635; 93005; 99284; Q9967

== ENCOUNTER → 2022-03-13 15:16 | Outpatient (BNVA) | payer OTHER, SELFPAY | PROVIDERS: PCP Internal Medicine; Visit Provider Surgery Vascular Surgery | DX: I82.409 Acute embolism and thrombosis of unspecified deep veins of unspecified lower extremity (principal) ==

== ENCOUNTER 2025-04-28 08:22 | Outpatient (AMB) | payer OTHER, SELFPAY ==
--- OUTSIDE RECORDS SUMMARY | 2025-04-28 08:25 | XMS_ITS | Encounter Summary ---
Author Organization [facility] Address [address] [place] [address] Phone Care Team Providers Care Weaving Supervisor Name Role Phone Aretha Bain NP Primary Care Provider [phone] Encounter Details Date Type Department Care Team (Late Contact Info) Description 08/12/2023 Documentation Only [facility] [address] [place] [phone] Marian Alicia MD [address] [place] [id number] Social History Tobacco Use Types Packs/Day Years Used Date Smoking Tobacco: Never Assessed Comments Unknown Sex and Gender Information Value Date Recorded Sex Assigned at Not on file Legal Sex Female 1:59 PM EDT Gender Identity Not on file Sexual Orientation Not on file documented as of this encounter Plan of Treatment Upcoming Encounters Date Type Department Care Team (Late Contact Info) Description 09/29/2025 4:15 PM EST Office Visit [facility] [address] [place] [phone] Jamison Avila MD [address] [place] [address] [place] [address] documented as of this encounter Visit Diagnoses Not on filedocumented in this encounter Care Teams Weaving Supervisor Relationship Specialty Start Date End Date Aretha Bain NP [address] [place] [address] [address] [place] [address] PCP - General Nurse Practitioner 04/12/25 documented as of this encounter
--- OUTSIDE RECORDS SUMMARY | 2025-04-28 08:25 | XMS_ITS | Clinical Summary ---
Author Organization [facility] Address [address] [place] [address] Phone Care Team Providers Care Scientific Publications Editor Name Role Phone Aretah Bain NP Primary Care Provider [phone] Family History Medical History Relation Name Comments Melanoma Maternal Grandmother Melanoma Mother Melanoma Sister Relation Name Status Comments Maternal Grandmother Mother Sister Social History Tobacco Use Types Packs/Day Years Used Date Smoking Tobacco: Never Smokeless Tobacco: Never Comments Unknown Sex and Gender Information Value Date Recorded Sex Assigned at Not on file Legal Sex Female 3:28 AM EST Gender Identity Not on file Sexual Orientation Not on file Obstetrics History Plan of Treatment Upcoming Encounters Date Type Department Care Team ([facility] Contact Info) Description 08/19/2025 2:30 PM EST Office Visit Bariatric Surgery - [address] [phone] Charito Monzon MD [address] [phone] Health Maintenance Due Date Last Done Comments Breast Cancer Screening 1966 DTaP,Tdap,and Td Vaccines (1 - Tdap) 1985 Hepatitis B Vaccines (1 of 3 - 19+ 3-dose series) 1985 Cervical Cancer Screening: P ap Smear 1987 Pneumococcal Vaccine: 50+ Ye ars (1 of 1 - PCV) 2016 Zoster Vaccines (1 of 2) 2016 Colorectal Cancer Screening: Colonoscopy 09/22/2022 Depression Screening 09/22/2022 HIV Screening 09/22/2022 Hepatitis C Screening 09/22/2022 Social Influencers of Health Screening 09/22/2022 COVID-19 Vaccine (1 - 2023-2 5 season) 2024 Influenza Vaccine (#1) 2025 HIB Vaccines Aged Out No longer eligi ble based on patient's age to complete this topic HPV Vaccines Aged Out No longer eligi ble based on patient's age to complete this topic Hepatitis A Vaccines Aged Out No long er eligible based on patient's age to complete this topic IPV Vaccines Aged Out No longer eligi ble based on patient's age to complete this topic MMR Vaccines Aged Out No longer eligi ble based on patient's age to complete this topic Meningococcal ACWY Vaccine Aged Out N o longer eligible based on patient's age to complete this topic Meningococcal B Vaccine Aged Out No l onger eligible based on patient's age to complete this topic RSV Immunization Patients Un vipin 20 months Aged Out No longer eligible b ased on patient's age to complete this topic Varicella Vaccines Aged Out No longer eligible based on patient's age to complete this topic Insurance [phone] (Work) [address] [place] [address] MEDICAID - [place] Care Teams Scientific Publications Editor Relationship Specialty Start Date End Date Aretha Bain NP [address] [facility] [address] [place] [phone] PCP - General Nurse Practitioner 03/02/25
--- NOTE | 2025-04-28 09:08 | A.OFFVIS_ITS ---
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[facility] BMI 55.7 Allergies ciprofloxacin Allergy (Verified 04/28/25 09:08) rash nitrofurantoin (From Macrobid) Allergy (Verified 04/28/25 09:08) rash Sulfa (Sulfonamide Antibiotics) Allergy (Verified 04/28/25 09:08) rash quetiapine (From Seroquel) Adverse Reaction (Verified 04/28/25 09:08) suicidal ideation Medication List - Last Reconciled 04/28/25 by Jarvis Mccarthy MD clonazepam 1 tab PO TID clonidine HCl 1 tab PO TID lamotrigine 1 tab PO DAILY losartan 100 mg PO DAILY omeprazole 40 mg PO DAILY risperidone 0.5 mg PO BID risperidone 1 mg PO BID venlafaxine ER 1 cap PO DAILY 30 days [vitamin d 3 PO] warfarin 5 mg PO DAILY HPI HPI 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[facility] BMI 55.7: Details: Start time: 9.05am, End time: 9.55am I spent 40 minutes speaking with the patient on the phone plus an additional 5 minutes reviewing and updating records for a total of 45 minutes HPI Comments Details: Previous weight loss efforts: MyFitnessPal (calorie countinlbs), WW Wakes up: 8am, Sleeps: 9pm Breakfast: 8.15am (Yogurt, scrambled eggs, Latvian muffin) Lunch: 1pm (Fast food, or cottage cheese) Dinner: 6pm (Cod, steak, chicken) Snacks: 4pm (nuts) Exercise: none Beverages: Coffee (2 Espressos with milk), Tea: (Green tea: 3/wk plain), Soda: rarely, juice: none, ETOH: none PFSH Medical History (Updated 04/28/25 @ 09:33 by Jarvis Mccarthy MD) DJD (degenerative joint disease) Morbid obesity with BMI of 50.0-59.9, adult Sleep apnea treated with continuous positive airway pressure (CPAP) 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 DVT (deep venous thrombosis) History of sciatica Sleep apnea Common variable immunodeficiency GERD (gastroesophageal reflux disease) Encounter for colonoscopy following colon polyp removal NIURKA (generalized anxiety disorder) MDD (major depressive disorder), recurrent severe, without psychosis GERD (gastroesophageal reflux disease) Common variable immunodeficiency Hypertension Anxiety Depression PTSD (post-traumatic stress disorder) Surgical History (Updated 04/28/25 @ 09:19 by Jarvis Mccarthy MD) History of hysterectomy Family History (Updated 04/06/25 @ 08:57 by Skye Stewart CMA) Mother Thyroid condition Acute ITP Anxiety Depression Father CHF (congestive heart failure) Enlarged heart Stomach cancer Social History Household Members: None Housing: Apartment Do you presently have visiting nurse or other home services: No Alcohol intake: never Comment: Pt is A&O and ambulates independently w/walker Patient Tobacco Use Status: Never used Tobacco service: No Current occupational status: employed Sexual orientation: did not discuss. Telehealth Telehealth Telehealth Platform: Telephone Location of provider rendering services: practice address Location of patient: address on file Patient Identification confirmed using: Name, : Yes Telehealth method: voice only Patient verbally consented to treatment: Yes Patient verbally consented to billing insurance company: Yes Patient informed of any privacy concerns related to visit: Yes Minutes spent on Phone/Video with Pt.: 45 Assessment & Plan Assessment & Plan (1) Morbid obesity with BMI of 50.0-59.9, adult: Code(s): E66.01 - Morbid (severe) obesity due to excess calories; Z68.43 - Body mass index [BMI] 50.0-59.9, adult Category: Medical Plan: 1. Plan for lap sleeve gastrectomy. If diaphragmatic or ventral hernias are present at time of surgery, these will be repaired laparoscopically as well. I emphasized the importance of close follow-up, adherence to instructions and good communication. The surgery does not replace the need to change your lifestlyle which is the cause of the obesity problem. The surgery provides the motivation to try again to change your lifestyle, it reduces the appetite and make the johnson sition to a better lifestyle easier and doubles the amount of weight you would lose compared to doing the lifestyle change without the surgery. You will need to be on a liquid diet with protein shakes for 2 weeks before surgery to maximize weight loss and boost your nutritional status to recover better from surgery and also for the first two weeks after surgery to let the stomach heal before we introduce other foods. After the first 2 weeks we will introduce protein bars and soft foods like scrambled eggs, cottage cheese and yogurt and after the 6th week will introduce meat, fish and cooked vegetables in small amounts. Over time you should be able to eat everything in small amounts. Side effects like nausea, vomiting, heartburn or abdominal pain are not common in the practice unless you are not following in the practice. This operation requires lifetime commitment to following in our practice and communication with me. You will much less weight and experience side effects if you don?t communicate or not following in the practice. Complications are rare and in our practice is about 1/10 of the national average. However, you can develop bleeding that may require transfusion (hasn?t happened for year in the practice), you may from complications (we did not have any deaths in the practice) and infections. Infections are usually a result of breakdown in communication or not unde rstanding or following directions correctly. They are difficult to treat, they can happen during the first 6 weeks, they may require to be in the hospital for weeks or even months, not being able to eat by mouth and you may have drains and surgeries to try and correct the issue. Other risks and complications include possible conversion to an open procedure, leaks, small bowel obstruction, blood clots, cardiac, or pulmonary complications, as senior care complications such as ulcers, insufficient weight loss and vitamin deficiencies. 2. You will receive a link of our software pb to generate an individualized nutritional and exercise plan specific for you. Please send me a screenshot of the plans you will generate Meal to include lean meat (beef, fish, pork, turkey, chicken), or english yogurt, or egg whites, or beans with a salad with olive oil and fruits (berries, pears, apples, kiwi). Avoid salt, breads, potatoes, rice, pasta, desserts. 3. If you choose shakes, each shake would be drunk slowly, like coffee in a period of 2 hours. 4. If you choose bars, cut each bar in 4 pieces and eat each piece in 30min to make each bar last 2 hours. 5. I emphasized the importance of measuring accurately the food portion and measure it when serving the food in plate 6. The meal portions include a specific number of forks of meat and salad. You always eat the meat portion but you can replace up to half of salad/vegetables portion with rice, potatoes or pasta, or a fruit if you like. The less you do it the better weight loss will be. 7. One full-size fork is what it can be scooped on the fork without falling aside and not what can be bit with the fork. Use regular forks like those you find in a typical restaurant. 8. Please buy the body composition scale we discussed and send me weight measurements as soon as possible and then once a week. Always include your diet and exercise plan. 9. The best choice would be to purchase a stationary bike, elliptical or treadmill at home that can track calories. Use the [employer] pb to create an exercise plan. 11. Goal is to lose at least 1.5-2lbs per week 12. Goal to lose 10% of your weight before surgery, which is about 31lbs. Ult imate weight goal: 283lbs before surgery 13. Please follow the diet plan exactly without any change. If you don't like something about the plan or you feel hungry you need to communicate with me so I can help you revise the plan. You should not change the plan yourself. 14. To be scheduled for EGD to assess the stomach's anatomy.The possibility of biopsies was discussed. Patient needs to avoid use of NSAIDs and aspirin for 1 week prior to EGD. You must be on liquids only the day before your endoscopy. Risks of perforation and bleeding was discussed with the patient. This will be an outpatient procedure with IV sedation. 15. Start the Zepbound when you get your body composition scale once a week. We discussed the potential side effects of Zepbound such as nausea, vomiting, abdominal pain, diarrhea and constipation and you will need to contact me if any of these symptoms occur or for any other new symptom you may experience Orders: Orders C Reactive Protein Today E66.01 - Morbid (severe) obesity due to excess calories, G47.30 - Sleep apnea, unspecified, I10 - Essential (primary) hypertension, I27.82 - Chronic pulmonary embolism, I82.402 - Acute embolism and thrombosis of unspecified deep veins of left lower extremity, K21.9 - Gastro- esophageal reflux disease without esophagitis, Z68.43 - Body mass index [BMI] 50.0-59.9, adult Hemoglobin A1c Today E66.01 - Morbid (severe) obesity due to excess calories, G47.30 - Sleep apnea, unspecified, I10 - Essential (primary) hypertension, I27.82 - Chronic pulmonary embolism, I82.402 - Acute embolism and thrombosis of unspecified deep veins of left lower extremity, K21.9 - Gastro-esophageal reflux disease without esophagitis, Z68.43 - Body mass index [BMI] 50.0-59.9, adult Complete Blood Count Auto Diff Today E66.01 - Morbid (severe) obesity due to excess calories, G47.30 - Sleep apnea, unspecified, I10 - Essential (primary) hypertension, I27.82 - Chronic pulmonary embolism, I82.402 - Acute embolism and thrombosis of unspecified deep veins of left lower extremity, K21.9 - Gastro- esophageal reflux disease without esophagitis, Z68.43 - Body mass index [BMI] 50.0-59.9, adult Lipid Panel Today E66.01 - Morbid (severe) obesity due to excess calories, G47.30 - Sleep apnea, unspecified, I10 - Essential (primary) hypertension, I27.82 - Chronic pulmonary embolism, I82.402 - Acute embolism and thrombosis of unspecified deep veins of left lower extremity, K21.9 - Gastro-esophageal reflux disease without esophagitis, Z68.43 - Body mass index [BMI] 50.0-59.9, adult Vitamin B12 and Folate Today E66.01 - Morbid (severe) obesity due to excess calories, G47.30 - Sleep apnea, unspecified, I10 - Essential (primary) hypertension, I27.82 - Chronic pulmonary embolism, I82.402 - Acute embolism and thrombosis of unspecified deep veins of left lower extremity, K21.9 - Gastro- esophageal reflux disease without esophagitis, Z68.43 - Body mass index [BMI] 50.0-59.9, adult Vitamin B1 Today E66.01 - Morbid (severe) obesity due to excess calories, G47.30 - Sleep apnea, unspecified, I10 - Essential (primary) hypertension, I27.82 - Chronic pulmonary embolism, I82.402 - Acute embolism and thrombosis of unspecified deep veins of left lower extremity, K21.9 - Gastro-esophageal reflux disease without esophagitis, Z68.43 - Body mass index [BMI] 50.0-59.9, adult TSH reflex Free T4 Today E66.01 - Morbid (severe) obesity due to excess calories, G47.30 - Sleep apnea, unspecified, I10 - Essential (primary) hypertension, I27.82 - Chronic pulmonary embolism, I82.402 - Acute embolism and thrombosis of unspecified deep veins of left lower extremity, K21.9 - Gastro- esophageal reflux disease without esophagitis, Z68.43 - Body mass index [BMI] 50.0-59.9, adult Ferritin Today E66.01 - Morbid (severe) obesity due to excess calories, G47.30 - Sleep apnea, unspecified, I10 - Essential (primary) hypertension, I27.82 - Chronic pulmonary embolism, I82.402 - Acute embolism and thrombosis of unspecified deep veins of left lower extremity, K21.9 - Gastro-esophageal reflux disease without esophagitis, Z68.43 - Body mass index [BMI] 50.0-59.9, adult FL upper GI w air Today E66.01 - Morbid (severe) obesity due to excess calories, G47.30 - Sleep apnea, unspecified, I10 - Essential (primary) hypertension, I27.82 - Chronic pulmonary embolism, I82.402 - Acute embolism and thrombosis of unspecified deep veins of left lower extremity, K21.9 - Gastro- esophageal reflux disease without esophagitis, Z68.43 - Body mass index [BMI] 50.0-59.9, adult Insulin Today E66.01 - Morbid (severe) obesity due to excess calories, G47.30 - Sleep apnea, unspecified, I10 - Essential (primary) hypertension, I27.82 - Chronic pulmonary embolism, I82.402 - Acute embolism and thrombosis of unspecified deep veins of left lower extremity, K21.9 - Gastro-esophageal reflux disease without esophagitis, Z68.43 - Body mass index [BMI] 50.0-59.9, adult H Pylori Breath Test Today E66.01 - Morbid (severe) obesity due to excess calories, G47.30 - Sleep apnea, unspecified, I10 - Essential (primary) hypertension, I27.82 - Chronic pulmonary embolism, I82.402 - Acute embolism and thrombosis of unspecified deep veins of left lower extremity, K21.9 - Gastro- esophageal reflux disease without esophagitis, Z68.43 - Body mass index [BMI] 50.0-59.9, adult IRON PROFILE Today E66.01 - Morbid (severe) obesity due to excess calories, G47.30 - Sleep apnea, unspecified, I10 - Essential (primary) hypertension, I27.82 - Chronic pulmonary embolism, I82.402 - Acute embolism and thrombosis of unspecified deep veins of left lower extremity, K21.9 - Gastro-esophageal reflux disease without esophagitis, Z68.43 - Body mass index [BMI] 50.0-59.9, adult Comprehensive Met. Panel Today E66.01 - Morbid (severe) obesity due to excess calories, G47.30 - Sleep apnea, unspecified, I10 - Essential (primary) hypertension, I27.82 - Chronic pulmonary embolism, I82.402 - Acute embolism and thrombosis of unspecified deep veins of left lower extremity, K21.9 - Gastro- esophageal reflux disease without esophagitis, Z68.43 - Body mass index [BMI] 50.0-59.9, adult Zinc Today E66.01 - Morbid (severe) obesity due to excess calories, G47.30 - Sleep apnea, unspecified, I10 - Essential (primary) hypertension, I27.82 - Chronic pulmonary embolism, I82.402 - Acute embolism and thrombosis of unspecified deep veins of left lower extremity, K21.9 - Gastro-esophageal reflux disease without esophagitis, Z68.43 - Body mass index [BMI] 50.0-59.9, adult Vitamin A Today E66.01 - Morbid (severe) obesity due to excess calories, G47.30 - Sleep apnea, unspecified, I10 - Essential (primary) hypertension, I27.82 - Chronic pulmonary embolism, I82.402 - Acute embolism and thrombosis of unspecified deep veins of left lower extremity, K21.9 - Gastro-esophageal reflux disease without esophagitis, Z68.43 - Body mass index [BMI] 50.0-59.9, adult Vitamin D 25-OH Total Today E66.01 - Morbid (severe) obesity due to excess calories, G47.30 - Sleep apnea, unspecified, I10 - Essential (primary) hypertension, I27.82 - Chronic pulmonary embolism, I82.402 - Acute embolism and thrombosis of unspecified deep veins of left lower extremity, K21.9 - Gastro- esophageal reflux disease without esophagitis, Z68.43 - Body mass index [BMI] 50.0-59.9, adult US abdomen comp w elastography Today E66.01 - Morbid (severe) obesity due to excess calories, G47.30 - Sleep apnea, unspecified, I10 - Essential (primary) hypertension, I27.82 - Chronic pulmonary embolism, I82.402 - Acute embolism and thrombosis of unspecified deep veins of left lower extremity, K21.9 - Gastro- esophageal reflux disease without esophagitis, Z68.43 - Body mass index [BMI] 50.0-59.9, adult XR chest 2V Today E66.01 - Morbid (severe) obesity due to excess calories, G47.30 - Sleep apnea, unspecified, I10 - Essential (primary) hypertension, I27.82 - Chronic pulmonary embolism, I82.402 - Acute embolism and thrombosis of unspecified deep veins of left lower extremity, K21.9 - Gastro-esophageal reflux disease without esophagitis, Z68.43 - Body mass index [BMI] 50.0-59.9, adult ECG 12 lead EKG Today E66.01 - Morbid (severe) obesity due to excess calories, G47.30 - Sleep apnea, unspecified, I10 - Essential (primary) hypertension, I27.82 - Chronic pulmonary embolism, I82.402 - Acute embolism and thrombosis of unspecified deep veins of left lower extremity, K21.9 - Gastro-esophageal reflux disease without esophagitis, Z68.43 - Body mass index [BMI] 50.0-59.9, adult Referrals Behavioral Health Referral E66.01 - Morbid (severe) obesity due to excess calories, G47.30 - Sleep apnea, unspecified, I10 - Essential (primary) hypertension, I27.82 - Chronic pulmonary embolism, I82.402 - Acute embolism and thrombosis of unspecified deep veins of left lower extremity, K21.9 - Gastro- esophageal reflux disease without esophagitis, Z68.43 - Body mass index [BMI] 50.0-59.9, adult Nutrition/Dietitian Referral E66.01 - Morbid (severe) obesity due to excess calories, G47.30 - Sleep apnea, unspecified, I10 - Essential (primary) hypertension, I27.82 - Chronic pulmonary embolism, I82.402 - Acute embolism and thrombosis of unspecified deep veins of left lower extremity, K21.9 - Gastro- esophageal reflux disease without esophagitis, Z68.43 - Body mass index [BMI] 50.0-59.9, adult Medications: New tirzepatide (weight loss) (Zepbound) 2.5 mg (0.5 mL) subcut QWEEK 2 mL 0RF 4 weeks E66.01 - Morbid (severe) obesity due to excess calories, Z68.43 - Body mass index [BMI] 50.0-59.9, adult
[2025-04-28 09:25] VITALS: BMI 55.6
== END 2025-04-28 09:56 | disposition home or self-care (01) ==
LOC: HO.HBS 08:22
PROVIDERS: PCP Nurse Practitioner Family; Visit Provider Surgery
DX: E66.01 Morbid (severe) obesity due to excess calories (principal); Z68.43 Body mass index [BMI] 50.0-59.9, adult
CPT/HCPCS: 98010

== ENCOUNTER 2025-04-30 09:19 | Outpatient (REF) | payer OTHER, SELFPAY ==
--- NOTE | ~2025-04-30 | XR_ITS ---
CLINICAL HISTORY: E66.01 - Morbid (severe) obesity due to excess calories 2 view chest x-ray Comparison: None provided Findings: Lungs are clear without acute infiltrates. No pneumothorax. Heart size normal. No acute bony abnormalities. Impression: No acute processes This document has been electronically signed by: Shahbaz June MD on 04/30/2025 21:00:23
--- NOTE | 2025-04-30 09:24 | ECG_ITS ---
Test Reason : MOR OBS Blood Pressure : */* mmHG Vent. Rate : 80 BPM Atrial Rate : 80 BPM P-R Int : 144 ms QRS Dur : 84 ms QT Int : 372 ms P-R-T Axes : 61 31 70 degrees QTcB Int : 429 ms Normal sinus rhythm Nonspecific ST and T wave abnormality Abnormal ECG When compared with ECG of 27-Sep-2021 14:40, ST now depressed in Anterior leads Referred By: Jarvis Mccarthy Electronically Signed By: JOSEPH CRUZ
--- OUTSIDE RECORDS SUMMARY | 2025-04-30 09:25 | XMS_ITS | Encounter Summary ---
Author Organization [facility] Address [address] [facility] [address] [place] [address] Phone Care Team Providers Care Plant And Equipment Worker Name Role Phone Demond Roegr MD Unavailable [phone] FeltTianna ng MD Unavailable [phone] Yasmeen Ward MD Unavailable [email or web address] Meghna Parson MD Primary Care Provi vipin Madalyn Rogers MD Primary Care Provide r Meghna Parson MD Primary Care Provi vipin Macho Vincent DO Unavailable Camila Nayak SALESPERSON USED CARS Unavailable Mile Reynolds PUBLICITY EXPERT Unavailable Marian Alicia MD Primary Care Provider [phone] Encounter Details Date Type Department Care Team (Late st Contact Info) Description 12/10/2018 Ancillary Orders [facility], X-Ray - [address] [address] Meghna Parson MD [address] [place], [place] [id number] [email or web address] Social History Tobacco Use Types Packs/Day Years Used Date Smoking Tobacco: Never Smokeless Tobacco: Never Alcohol Use Standard Drinks/Week Comments No 0 (1 standard drink = 0.6 oz pur e alcohol) Comments No Sex and Gender Information Value Date Recorded Sex Assigned at Female 01/19/2022 5:34 PM EDT Legal Sex Female 7:45 PM EST Gender Identity Female 01/19/2022 5:34 PM EDT Sexual Orientation Not on file documented as of this encounter Plan of Treatment Not on file documented as of this encounter Results * XR Sacrum and Coccyx (12/10/2018 11:25 AM EST) Anatomical Region Laterality Modality L-spine Radiographic Jessica ging 12/10/2018 12:2 7 PM EST Impressions 12/10/2018 4:36 PM EST No evidence for acute fracture. Degenerative lumbar spondylosis. POS - [email or web address] Edited by: Nicole Gonsalves on 12/10/2018 1:04 PM Narrative 12/10/2018 4:36 PM EST EXAMS: XR SACRUM AND COCCYX, XR LUMBOSACRAL SPINE 4 OR MORE VIEWS HISTORY: Fell yesterday, pain in tailbone. TECHNIQUE: Five views lumbosacral spine, 3 views sacrococcyx. COMPARISON: None FINDINGS: Lumbosacral spine, sacrum and coccyx: No evidence for acute fracture. Normal height and alignment of the lumbosacral vertebrae. There is multilevel degenerative disc space narrowing with anterior marginal osteophytes, endplate sclerotic changes at L4-L5 and L2-L3. Normal sacroiliac joints. Facet arthritic changes notable L3 through S1 bilaterally. Procedure Note Gaby Torres MD - 12/10/2018 EXAMS: XR SACRUM AND COCCYX, XR LUMBOSACRAL SPINE 4 OR MORE VIEWS HISTORY: Fell yesterday, pain in tailbone. TECHNIQUE: Five views lumbosacral spine, 3 views sacrococcyx. COMPARISON: None FINDINGS: Lumbosacral spine, sacrum and coccyx: No evidence for acute fracture. Normal height and alignment of thelumbosacral vertebrae. There is multilevel degenerative disc space narrowing with anteriormarginal osteophytes, endplate sclerotic changes at L4-L5 and L2-L3.Normal sacroiliac joints. Facet arthritic changes notable L3 through [id number]. IMPRESSION: No evidence for acute fracture. Degenerative lumbar spondylosis. POS - [email or web address] Edited by: Nicole Gonsalves on 12/10/2018 1:04 PM Meghna Parson MD IMG XR SPINE Fin al Result * XR LUMBOSACRAL SPINE 4 OR MORE VIEWS (12/10/2018 11:24 AM EST) Anatomical Region Laterality Modality L-spine Radiographic Jessica ging 12/10/2018 12:2 7 PM EST Impressions 12/10/2018 4:36 PM EST No evidence for acute fracture. Degenerative lumbar spondylosis. POS - [email or web address] Edited by: Nicole Gonsalves on 12/10/2018 1:04 PM Narrative 12/10/2018 4:36 PM EST EXAMS: XR SACRUM AND COCCYX, XR LUMBOSACRAL SPINE 4 OR MORE VIEWS HISTORY: Fell yesterday, pain in tailbone. TECHNIQUE: Five views lumbosacral spine, 3 views sacrococcyx. COMPARISON: None FINDINGS: Lumbosacral spine, sacrum and coccyx: No evidence for acute fracture. Normal height and alignment of the lumbosacral vertebrae. There is multilevel degenerative disc space narrowing with anterior marginal osteophytes, endplate sclerotic changes at L4-L5 and L2-L3. Normal sacroiliac joints. Facet arthritic changes notable L3 through S1 bilaterally. Procedure Note Gaby Torres MD - 12/10/2018 EXAMS: XR SACRUM AND COCCYX, XR LUMBOSACRAL SPINE 4 OR MORE VIEWS HISTORY: Fell yesterday, pain in tailbone. TECHNIQUE: Five views lumbosacral spine, 3 views sacrococcyx. COMPARISON: None FINDINGS: Lumbosacral spine, sacrum and coccyx: No evidence for acute fracture. Normal height and alignment of thelumbosacral vertebrae. There is multilevel degenerative disc space narrowing with anteriormarginal osteophytes, endplate sclerotic changes at L4-L5 and L2-L3.Normal sacroiliac joints. Facet arthritic changes notable L3 through [id number]. IMPRESSION: No evidence for acute fracture. Degenerative lumbar spondylosis. POS - [email or web address] Edited by: Nicole Gonsalves on 12/10/2018 1:04 PM us Meghna Parson MD IMG XR SPINE Fin al Result * XR KNEE 4 OR MORE VIEWS (LEFT) (12/10/2018 11:24 AM EST) Anatomical Region Laterality Modality Knee Left Radiographic Jessica ging 12/10/2018 12:2 1 PM EST Impressions 12/10/2018 4:36 PM EST No acute fracture. Tricompartmental degenerative arthrosis, moderate in the medial compartment. POS - [email or web address] Edited by: Nicole Gonsalves on 12/10/2018 12:57 PM Narrative 12/10/2018 4:36 PM EST EXAM: XR KNEE 4 OR MORE VIEWS (LEFT) HISTORY: Pain after a fall, left knee pain after a fall. TECHNIQUE: Four views of the left knee. COMPARISON: None. FINDINGS: There is no fracture or dislocation. No joint effusion. Moderate medial compartment joint space narrowing with distal femoral and proximal tibial marginal osteophytes. Small marginal osteophytes in the lateral compartment with preservation of the joint space. Small posterior patellar osteophytes at the patellofemoral joint. No abnormal periosteal reaction. Procedure Note Gaby Torres MD - 12/10/2018 EXAM: XR KNEE 4 OR MORE VIEWS (LEFT) HISTORY: Pain after a fall, left knee pain after a fall. TECHNIQUE: Four views of the left knee. COMPARISON: None. FINDINGS: There is no fracture or dislocation. No joint effusion. Moderate medial compartment joint space narrowing with distal femoral andproximal tibial marginal osteophytes. Small marginal osteophytes in thelateral compartment with preservation of the joint space. Small posteriorpatellar osteophytes at the patellofemoral joint. No abnormal periostealreaction. IMPRESSION: No acute fracture. Tricompartmental degenerative arthrosis, moderate in the medialcompartment. POS - [email or web address] Edited by: Nicole Gonsalves on 12/10/2018 12:57 PM Meghna Parson MD IMG XR LOWER EXTREM ITY Final Result documented in this encounter Visit Diagnoses Diagnosis Pain Generalized pain Pain Generalized pain Pain Generalized pain Pain Generalized pain documented in this encounter Additional Health Concerns Infection Onset Date Last Indicated Resolved Time CoV-Exposed Comment:Recent close contact documented in the COVID-19 PCR/PRO order 09/25/2021 10/03/2021 10/10/2021 1:[address] CoV-Presumed 10/09/2022 10/09/2022 10/30/2022 1:21 AM EST CoV-Risk 03/01/2023 03/01/2023 03/12/2023 1:22 AM EDT documented as of this encounter Care Teams Plant And Equipment Worker Relationship Specialty Start Date End Date Meghna Parson MD [email or web address] PCP - General Internal Medicine 08/19/17 11/29/19 Madalyn Rogers MD [address] [place] [address] PCP - General 11/30/19 12/30/20 Meghna Pasron MD [email or web address] PCP - General Internal Medicine 12/31/20 01/04/22 Marian Alicia MD [address] [place] [address], [address] [place] [address] [email or web address] PCP - General Family Medicine 01/05/22 Demond Roger MD [address] [place] [address] [email or web address] Historical LMR Provider 02/24/15 10/21/21 Tianna Coello MD [address] [place] [address] [email or web address] Historical LMR Provider 02/24/15 10/21/21 Yasmeen Ward MD [email or web address] Historical LMR Provider 02/24/1510/21 Macho Vincent DO [address] [place] [address] [email or web address] Primary Oncologist Hematology and Oncology 09/13/21 Camila Nayak FNP [address] [place] [address] [email or web address] Nurse Practitioner Medical Oncology 11/03/21 Mile Reynolds CNP [address] [place] [address] [email or web address] Nurse Practitioner Medical Oncology 11/03/21 documented as of this encounter Additional Source Comments The information contained in this document represents components of the legal health record. It is not the complete legal health record.[facility]
--- OUTSIDE RECORDS SUMMARY | 2025-04-30 09:25 | XMS_ITS | Clinical Summary ---
Author Organization [facility] Address [address] [place] [address] Phone Care Team Providers Care Analysis Specialist Name Role Phone Aretha Bain NP Primary Care Provider [phone] Family History Medical History Relation Name Comments [...] Upcoming Encounters Date Type Department Care Team ([facility] Contact Info) Description 08/19/2025 2:30 PM EST Office Visit Bariatric Surgery - [address] [address] Charito Monzon MD [address] [address] Health Maintenance Due Date Last Done Comments [...] patient's age to complete this topic Insurance [phone] (Work) [address] [place] [address] MEDICA[place] - [place] Care Teams Analysis Specialist Relationship Specialty Start Date End Date Aretha Bain NP 75 [facility] 1 [place] [address] PCP - General Nurse Practitioner 03/02/25
--- OUTSIDE RECORDS SUMMARY | 2025-04-30 09:25 | XMS_ITS | Encounter Summary ---
Author Organization [facility] Address [address] [place] [address] Phone Care Team Providers Care Front Facer Name Role Phone Aretha Bain NP Primary Care Provider [phone] Encounter Details Date Type Department Care Team (Late Contact Info) Description 08/12/2023 Documentation Only [facility] [address] [place] [phone] Marian Alicia MD [address] [place] [address] Social History Tobacco Use Types Packs/Day Years [...] Visit [facility] [address] [place] [phone] Jamison Avila MD [address] [place] [address] [place] [address] documented as of this encounter Visit Diagnoses Not on filedocumented in this encounter Care Teams Front Facer Relationship Specialty Start Date End Date Aretha Bain NP [address] [place] [address] 1 [place] [address] PCP - General Nurse Practitioner 04/12/25 documented as of this encounter
== END 2025-04-30 09:20 | disposition home or self-care (01) ==
LOC: HO.XRAY 09:19
PROVIDERS: PCP Nurse Practitioner Family; Visit Provider Surgery
DX: E66.01 Morbid (severe) obesity due to excess calories (principal); I27.82 Chronic pulmonary embolism; I10 Essential (primary) hypertension; K21.9 Gastro-esophageal reflux disease without esophagitis; G47.30 Sleep apnea, unspecified; I82.402 Acute embolism and thrombosis of unspecified deep veins of left lower extremity; Z68.43 Body mass index [BMI] 50.0-59.9, adult
CPT/HCPCS: 71046; 93005

== ENCOUNTER → 2025-04-30 09:24 | Outpatient (BNV) | payer OTHER, SELFPAY | PROVIDERS: PCP Nurse Practitioner Family; Visit Provider Internal Medicine | DX: R94.31 Abnormal electrocardiogram [ECG] [EKG] (principal); E66.01 Morbid (severe) obesity due to excess calories | CPT/HCPCS: 93010 ==

== ENCOUNTER → 2025-04-30 09:37 | Outpatient (BNV) | payer OTHER, SELFPAY | PROVIDERS: PCP Nurse Practitioner Family; Visit Provider Radiology Diagnostic Radiology | DX: E66.01 Morbid (severe) obesity due to excess calories (principal) | CPT/HCPCS: 71046 ==

== ENCOUNTER 2025-05-03 07:20 | Outpatient (REF) | payer OTHER, SELFPAY ==
--- OUTSIDE RECORDS SUMMARY | 2025-05-03 07:23 | XMS_ITS | Encounter Summary ---
Author Organization [facility] Address [address] [place] [address] Care Team Providers Care Cnc Mill And Lathe Operator Name Role Phone Community, Pcp Primary Care Provider Meghna Wright Primary Care Provider Unaaniceto ilable Encounter Details Date Type Department Care Team Description 02/07/2017 Release of Information Medical Records [address] [place] [id number] Abstract, Provider Social History Tobacco Use Types Packs/Day Years Used Date Smoking Tobacco: Never Assessed Sex Assigned at Date Recorded Not on file documented as of this encounter Plan of Treatment Not on file documented as of this encounter Visit Diagnoses Not on filedocumented in this encounter Care Teams Cnc Mill And Lathe Operator Relationship Specialty Start Date End Date Community, Pcp PCP - General Internal Medicine 11/02/16 02/07/17 Meghna Parson PCP - General Internal Medicine 02/08/17 documented as of this encounter
--- OUTSIDE RECORDS SUMMARY | 2025-05-03 07:23 | XMS_ITS | Clinical Summary ---
Author Organization 175 [facility] Address [address] [place] [address] Phone Care Team Providers Care Asphalt Spreader Name Role Phone Aretha Bain NP Primary Care Provider [phone] Family History Medical History Relation Name Comments [...] Upcoming Encounters Date Type Department Care Team ([facility] Contact Info) Description 08/19/2025 2:30 PM EST Office Visit Bariatric Surgery - [address] [address] Charito Monzon MD [address] [address] Health Maintenance Due Date Last Done Comments Breast Cancer Screening 1966 DTaP,Tdap,and Td Vaccines (1 - Tdap) 1985 Hepatitis B Vaccines (1 of 3 - 19+ 3-dose series) 1985 Cervical Cancer Screening: P ap Smear 1987 Pneumococcal Vaccine: 50+ Ye ars (1 of 1 - PCV) 2016 Zoster Vaccines (1 of 2) 2016 Colorectal Cancer Screening: Colonoscopy 09/22/2022 HIV Screening 09/22/2022 Hepatitis C Screening 09/22/2022 Social Influencers of Health Screening 09/22/2022 COVID-19 Vaccine (1 - 2023-2 5 season) 2024 Depression Screening 10/14/2024 Influenza Vaccine (#1) 2025 RSV Immunization Adult Patie nts (1 - 1-dose 75+ series) 2041 HIB Vaccines Aged Out No longer eligi [...] patient's age to complete this topic Insurance [phone] (Work) [address] [id number] MEDICA[place] - [place] Care Teams Asphalt Spreader Relationship Specialty Start Date End Date Aretha Bain NP 75 [facility] 1 [place] [phone] PCP - General Nurse Practitioner 03/02/25
--- OUTSIDE RECORDS SUMMARY | 2025-05-03 07:23 | XMS_ITS | Encounter Summary ---
Author Organization [facility] Address [address] [facility] [address] [place] [address] Phone Care Team Providers Care Flake Or Shred Roll Operator Name Role Phone Demond Roger MD Unavailable [phone] FeltTianna ng MD Unavailable [phone] Yasmeen Ward MD Unavailable [email or web address] Meghna Parson MD Primary Care Provi vipin Madalyn Rogers MD Primary Care Provide r Meghna Parson MD Primary Care Provi vipin Macho Vincent DO Unavailable Camila Nayak APPLICATION ANALYST Unavailable Mile Reynolds CLOTH WEAVER Unavailable Marian Alicia MD Primary Care Provider [phone] Encounter Details Date Type Department Care Team (Late st Contact Info) Description 12/10/2018 Ancillary Orders [facility], X-Ray - [address] [address] Meghna Parson MD [address] [place], [place] [phone] [email or web address] Pain Social History Tobacco Use Types Packs/Day [...] joints. Facet arthritic changes notable L3 through [id number]. IMPRESSION: No evidence for acute fracture. Degenerative [...] joints. Facet arthritic changes notable L3 through [id number]. IMPRESSION: No evidence for acute fracture. Degenerative lumbar spondylosis. POS - [email or web address] Edited by: Nicole Gonsalves on 12/10/2018 1:04 PM us Meghna Parson MD IMG XR SPINE Fin al Result * XR KNEE 4 OR MORE VIEWS (LEFT) (12/10/2018 11:24 AM EST) Anatomical Region Laterality Modality Knee Left Radiographic Jesscia ging 12/10/2018 12:2 1 PM EST Impressions [...] documented as of this encounter Care Teams Flake Or Shred Roll Operator Relationship Specialty Start Date End Date Meghna Parson MD [email or web address] PCP - General Internal Medicine 08/19/17 11/29/19 Madalyn Rogers MD [address] [place] [address] PCP - General 11/30/19 12/30/20 Meghna Parson MD [email or web address] PCP - General Internal Medicine 12/31/20 01/04/22 Marian Alicia MD [address] [place] [address], [address] [place] [address] [email or web address] PCP - General Family Medicine 01/05/22 Demond Roger MD [address] [place] [address] [email or web address] Historical LMR Provider 02/24/15 10/21/21 Tianna Coello MD [address] [place] [address] [email or web address] Historical LMR Provider 02/24/15 10/21/21 Yasmeen Ward MD [email or web address] Historical LMR Provider 02/24/1510/21 Macho Vincent DO [address] [place] [address] [email or web address] Primary Oncologist Hematology and Oncology 09/13/21 Camila Nayak FNP [address] [place] [address] [email or web address] Nurse Practitioner Medical Oncology 11/03/21 Mile Reynolds CNP [address] [place] [address] [email or web address] Nurse Practitioner Medical Oncology 11/03/21 documented as of this encounter Additional Source Comments The information contained in this document represents components of the legal health record. It is not the complete legal health record.[facility]
--- OUTSIDE RECORDS SUMMARY | 2025-05-03 07:23 | XMS_ITS | Encounter Summary ---
Author Organization [facility] Address [address] [place] [address] Phone Care Team Providers Care Public Health Veterinarian Name Role Phone Aretha Bain NP Primary Care Provider Encounter Details Date Type Department Care Team (Late Contact Info) Description 08/12/2023 Documentation Only [facility] [address] [place] [phone] Marian Alicia MD [address] [place] [address] Social History Tobacco Use Types Packs/Day Years [...] Visit [facility] [address] [place] [phone] Jamison Avila MD [address] [place] [address] [place] [address] documented as of this encounter Visit Diagnoses Not on filedocumented in this encounter Care Teams Public Health Veterinarian Relationship Specialty Start Date End Date Aretha Bain NP [address] [place] [address] 1 [place] [address] PCP - General Nurse Practitioner 04/12/25 documented as of this encounter
[2025-05-03 07:34] LABS: MANUAL DIFF FLAG NO
[2025-05-03 08:04] LABS: Hematocrit 44.8 % (37.0-47.0); Hemoglobin 14.7 g/dl (12.0-16.0); Imm Gran Abs Auto 0.17 X10*3/uL (0.00-0.03); Imm Gran Pct Auto 1.3 % (0.0-0.4); Lymphocytes Absolute Auto 3.0 X10*3/uL (1.2-4.9); Mean Corpuscular HGB Conc 32.8 g/dl (31.0-35.0); Mean Corpuscular Hemoglobin 28.5 pg (27.0-33.0); Mean Corpuscular Volume 87.0 fL (80.0-98.0); NRBC Abs Auto 0.000 X10*3/uL (0.0-0.012); NRBC Pct Auto 0.0 /100WBC (0.0-0.2); Platelet Count 337 X10*3/uL (160-400); Red Blood Count 5.15 X10*6/uL (4.20-5.50); White Blood Count 12.7 X10*3/uL (4.8-10.8)
[2025-05-03 08:16] LABS: Hemoglobin A1C 133.4110 umol/L; Total Hemoglobin (HGBA1C) 3856.0978 umol/L
[2025-05-03 08:41] LABS: Alanine Aminotransferase 17 U/L (0-31); Albumin Level 4.3 g/dL (3.5-5.0); Alkaline Phosphatase 123 U/L (39-117); Anion Gap 14 (12-20); Aspartate Amino Transferase 20 U/L (5-31); Blood Urea Nitrogen 29 mg/dL (9-16); Calcium 9.2 mg/dL (8.4-10.2); Carbon Dioxide 33 mmol/L (22-29); Chloride 102 mmol/L (96-108); Cholesterol 235 mg/dL (<200); Estimated Glomerular Filt Rate 33; HDL Cholesterol 47 mg/dL (>40); Iron 48 mcg/dL (30-160); Percent Iron Saturation 21 % (15-50); Potassium 3.4 mmol/L (3.3-5.1); Sodium 146 mmol/L (135-145); Total Iron Binding Capacity 234 mcg/dL (228-428); Total Protein 6.8 g/dL (6.5-8.0); Triglycerides 244 mg/dL (<150); Unsaturated Iron Binding 186 ug/dL
[2025-05-03 09:01] LABS: Ferritin 104 ng/mL (10-250)
[2025-05-03 09:09] LABS: Folate 4.8 ng/mL (> or = 4.0); Vitamin B12 378 pg/mL (200-900)
== END 2025-05-03 07:21 | disposition home or self-care (01) ==
LOC: HO.LAB 07:20
PROVIDERS: PCP Nurse Practitioner Family; Visit Provider Surgery
DX: I82.402 Acute embolism and thrombosis of unspecified deep veins of left lower extremity (principal); I27.82 Chronic pulmonary embolism; I10 Essential (primary) hypertension; K21.9 Gastro-esophageal reflux disease without esophagitis; G47.30 Sleep apnea, unspecified; Z99.89 Dependence on other enabling machines and devices; E66.01 Morbid (severe) obesity due to excess calories; Z68.43 Body mass index [BMI] 50.0-59.9, adult
CPT/HCPCS: 36415; 80053; 80061; 82306; 82607; 82728; 82746; 83036; 83525; 83540; 84425; 84443; 84590; 84630; 85025; 86140

== ENCOUNTER 2025-05-18 14:14 | Outpatient (AMB) | payer OTHER, SELFPAY ==
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
--- OUTSIDE RECORDS SUMMARY | 2025-05-18 14:54 | XMS_ITS | Encounter Summary ---
Author Organization [facility] Address [address] [place] [address] Phone Care Team Providers Care Beverage Inspection Machine Tender Name Role Phone Demond Roger MD Unavailable [phone] FeltTianna ng MD Unavailable [phone] Yasmeen Ward MD Unavailable [email or web address] Meghna Parson MD Primary Care Provi vipin Madalyn Rogers MD Primary Care Provide r Meghna Parson MD Primary Care Provi vipin Macho Vincent DO Unavailable Camila Nayak INSTRUCTIONAL DESIGN CONSULTANT Unavailable [phone] ELECTRICAL PANEL BUILDER Unavailable Marian Alicia MD Primary Care Provider [phone] Encounter Details Date Type Department Care Team (Late st Contact Info) Description 12/10/2018 Ancillary Orders [facility], X-Ray - [address] [address] Meghna Parson MD [address] [place], [place] [id number] [email or web address] Social History Tobacco Use Types Packs/Day [...] joints. Facet arthritic changes notable L3 through [id number]. IMPRESSION: No evidence for acute fracture. Degenerative [...] joints. Facet arthritic changes notable L3 through [id number]. IMPRESSION: No evidence for acute fracture. Degenerative [...] documented as of this encounter Care Teams Beverage Inspection Machine Tender Relationship Specialty Start Date End Date Meghna Parson MD [email or web address] PCP - General Internal Medicine 08/19/17 11/29/19 Madalyn Rogers MD [address] [place] [address] PCP - General 11/30/19 12/30/20 Meghna Parson MD [email or web address] PCP - General Internal Medicine 12/31/20 01/04/22 Marian Alicia MD [address] [place] [address], [address] [place] [address] [email or web address] PCP - General Family Medicine 01/05/22 Demond Roger MD [address] [place] [address] [email or web address] Historical LMR Provider 02/24/15 10/21/21 Tianna Coello MD [address] [place] [id number] [email or web address] Historical LMR Provider 02/24/15 10/21/21 Yasmeen Ward MD [email or web address] Historical LMR Provider 02/24/1510/21 Macho Vincent DO [address] [place] [address] [email or web address] Primary Oncologist Hematology and Oncology 09/13/21 Camila Nayak FNP [address] [place] [address] [email or web address] Nurse Practitioner Medical Oncology 11/03/21 Mile Reynolds CNP [address] [place] [address] [email or web address] Nurse Practitioner Medical Oncology 11/03/21 documented as of this encounter Additional Source Comments The information contained in this document represents components of the legal health record. It is not the complete legal health record.[facility]
--- OUTSIDE RECORDS SUMMARY | 2025-05-18 14:54 | XMS_ITS | Clinical Summary ---
Author Organization [address] [facility] Address [address] [place] [address] Phone Care Team Providers Care O And M Supervisor Name Role Phone Aretha Bain NP Primary Care Provider [phone] Family History Medical History Relation Name Comments [...] Upcoming Encounters Date Type Department Care Team ([facility] Contact Info) Description 08/19/2025 2:30 PM EST Office Visit Bariatric Surgery - [address] [address] Charito Monzon MD [address] [address] Health Maintenance Due Date Last Done Comments [...] patient's age to complete this topic Insurance [phone] (Work) [address] [id number] MEDICA[place] Care Teams O And M Supervisor Relationship Specialty Start Date End Date Aretha Bain NP [address] [facility] [address] [place] [phone] PCP - General Nurse Practitioner 03/02/25
--- OUTSIDE RECORDS SUMMARY | 2025-05-18 14:54 | XMS_ITS | Encounter Summary ---
Author Organization [facility] Address [address] [place] [address] Phone Care Team Providers Care Tool Specialist Name Role Phone Aretha Bain NP Primary Care Provider [phone] Encounter Details Date Type Department Care Team (Late Contact Info) Description 08/12/2023 Documentation Only [facility] [address] [place] [phone] Marian Alicia MD [address] [place] [phone] Social History Tobacco Use Types Packs/Day Years [...] Visit [facility] [address] [place] [phone] Jamison Avila MD [address] [place] [address] [place] [address] documented as of this encounter Visit Diagnoses Not on filedocumented in this encounter Care Teams Tool Specialist Relationship Specialty Start Date End Date Aretha Bain NP [address] [place] [address] [address] [place] [address] PCP - General Nurse Practitioner 04/12/25 documented as of this encounter
--- OUTSIDE RECORDS SUMMARY | 2025-05-18 14:54 | XMS_ITS | Encounter Summary ---
Author Organization [facility] Address [address] [place] [address] Care Team Providers Care Vision Therapist Name Role Phone Community, Pcp Primary Care Provider Meghna Wright Primary Care Provider Unaaniceto ilable Encounter Details Date Type Department Care Team Description 02/07/2017 Release of Information Medical Records [address] [place] [id number] Abstract, Provider Social History Tobacco Use Types Packs/Day Years Used Date Smoking Tobacco: Never Assessed Sex Assigned at Date Recorded Not on file documented as of this encounter Plan of Treatment Not on file documented as of this encounter Visit Diagnoses Not on filedocumented in this encounter Care Teams Vision Therapist Relationship Specialty Start Date End Date Community, Pcp PCP - General Internal Medicine 11/02/16 02/07/17 Meghna Parson PCP - General Internal Medicine 02/08/17 documented as of this encounter
== END 2025-05-18 15:11 | disposition home or self-care (01) ==
LOC: HO.HBST 14:14
PROVIDERS: PCP Nurse Practitioner Family; Visit Provider Counselor Mental Health
DX: F43.10 Post-traumatic stress disorder, unspecified (principal); F33.2 Major depressive disorder, recurrent severe without psychotic features; F41.9 Anxiety disorder, unspecified; Z71.89 Other specified counseling
CPT/HCPCS: 90791

== ENCOUNTER 2025-05-26 09:19 | Day surgery (SDC) | payer OTHER, SELFPAY ==
[2025-05-24 15:02] VITALS: BMI 55.6
--- NOTE | 2025-05-24 15:10 | HO.ANESPROP2 ---
HPI - Anesthesia Eval Consult details Narrative: 60yo F for Upper Endoscopy 2020 saddle PE/DVT (IVC filter placed)- on warfarin with artixtra bridge BMI 55 Anesthesia Pre-Procedure Meds Is the patient on any of the following meds?: GLP1/DPP4 PMFSH Active Problems Active Problems: All Active Problems Vitamin B1 deficiency (Acute) Abnormal EKG (Acute) Elevated troponin (Acute) Pulmonary embolism (Acute) MDD (major depressive disorder), recurrent severe, without psychosis (Acute) DJD (degenerative joint disease) (Acute) GERD (gastroesophageal reflux disease) (Acute) Morbid obesity with BMI of 50.0-59.9, adult (Acute) Sleep apnea treated with continuous positive airway pressure (CPAP) (Acute) Hypertension (Acute) Depression (Acute) Anxiety (Acute) PTSD (post-traumatic stress disorder) (Acute) DVT (deep venous thrombosis) (Acute) Past Medical History Medical History DJD (degenerative joint disease) Morbid obesity with BMI of 50.0-59.9, adult Sleep apnea treated with continuous positive airway pressure (CPAP) 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 DVT (deep venous thrombosis) History of sciatica NIURKA (generalized anxiety disorder) MDD (major depressive disorder), recurrent severe, without psychosis GERD (gastroesophageal reflux disease) Common variable immunodeficiency Hypertension Anxiety Depression PTSD (post-traumatic stress disorder) Family History Family History (Updated 04/06/25 @ 08:57 by Skye Stewart CMA) Mother Thyroid condition Acute ITP Anxiety Depression Father CHF (congestive heart failure) Enlarged heart Stomach cancer Surgical History Surgical History (Updated 05/26/25 @ 10:04 by Beverly Martinez RN) H/O colonoscopy History of esophagogastroduodenoscopy (EGD) History of inferior vena caval filter placement History of hysterectomy Social History Social History Household Members: None Housing: Apartment Do you presently have visiting nurse or other home services: No Alcohol intake: never Comment: Pt is A&O and ambulates independently w/walker Patient Tobacco Use Status: Never used Tobacco service: No Current occupational status: employed Sexual orientation: did not discuss. Meds Allergies Allergy/AdvReac Type Severity Reaction Status Date / Time ciprofloxacin Allergy rash Verified 05/26/25 09:57 nitrofurantoin (From Allergy rash Verified 05/26/25 09:57 Macrobid) Sulfa (Sulfonamide Allergy rash Verified 05/26/25 09:57 Antibiotics) quetiapine (From Seroquel) AdvReac suicidal Verified 05/26/25 09:57 ideation Home Medications ?Medication ?Instructions ?Recorded ?Confirmed ?Last Taken ?Type clonazepam 1 mg tablet 1 tab PO TID 08/14/21 05/24/25 05/25/25 History clonidine HCl 0.1 mg tablet 1 tab PO TID 08/14/21 05/24/25 05/12/25 History lamotrigine 100 mg tablet 1 tab PO DAILY 08/14/21 05/24/25 05/25/25 History risperidone 1 mg tablet 1 mg PO BID 03/13/22 05/24/25 05/25/25 History warfarin 5 mg tablet 5 mg PO DAILY 03/13/22 05/24/25 05/18/25 History vitamin d 3 PO 04/07/25 05/04/25 04/28/25 History losartan 100 mg tablet 100 mg PO DAILY 04/28/25 05/24/25 05/12/25 History omeprazole 40 mg capsule,delayed 40 mg PO DAILY 04/28/25 05/24/25 05/25/25 History release Exam Height,Weight and Vital Signs: Height 5 ft 3 in Weight 142.456 kg Pertinent Lab Results Pertinent Lab Results: Laboratory Tests 05/03/25 07:33 WBC 12.7 H Hgb 14.7 Hct 44.8 Plt Count 337 Sodium 146 H Potassium 3.4 Chloride 102 Carbon Dioxide 33 H BUN 29 H Creatinine 1.60 H Narrative Narrative: EKG 04/2025 Vent. Rate : 80 BPM Atrial Rate : 80 BPM P-R Int : 144 ms QRS Dur : 84 ms QT Int : 372 ms P-R-T Axes : 61 31 70 degrees QTcB Int : 429 ms Normal sinus rhythm Nonspecific ST and T wave abnormality Abnormal ECG When compared with ECG of 27-Sep-2021 14:40, ST now depressed in Anterior leads
[2025-05-26 10:04] VITALS: BMI 53.0
[2025-05-26 10:10] VITALS: BP 137/69; PULSE 73; RESP 16; TEMP 35.9; O2SAT 92
[2025-05-26] MEDS: Lactated Ringers 1,000 ML 80 ML IVCONT (10:18)
[2025-05-26 10:19] LABS: INTERNATIONAL NORM RATIO 1.1 (0.9-1.1); Prothrombin Time 12.3 SEC (10.9-12.4)
--- NOTE | 2025-05-26 10:38 | MHC.SHP ---
Pre-Procedural Eval Section A - 24 Hr Update-Section A only Date of Service: 05/26/25 The patient is an INPATIENT: No The patient has been examined within 24 hours of the surgical procedure. The History & Physical has been completed within 30 days and I have reviewed it.: Yes Section B - Complete if H&P > 30 days Chief Complaint: Morbid (severe) obesity due to excess calories Details of Present Illness: GERD Relevant Family History (Specify if Yes): No Relevant Social History: None Present Medications: None Medical History: No relevant PMH History of Previous Operations: No relevant previous surgery Allergies: Allergies Allergy/AdvReac Type Severity Reaction Status Date / Time ciprofloxacin Allergy rash Verified 05/26/25 09:57 nitrofurantoin (From Allergy rash Verified 05/26/25 09:57 Macrobid) Sulfa (Sulfonamide Allergy rash Verified 05/26/25 09:57 Antibiotics) quetiapine (From Seroquel) AdvReac suicidal Verified 05/26/25 09:57 ideation Review of Systems Sugical H&P ROS: Negative: Constitution, Cardiovascular, Respiratory, Neurological, Psychiatric, Hem-Onc, Allergic/Immunologic, Gastrointestinal, Genitourinary, Musculoskeletal, Integumentary, Endocrine and Eyes/Ears/Nose/Throat Exam Surgical H&P Exam: Normal: HEENT, Normal: Heart, Normal: Lungs, Normal: Extremities, Normal: Abdomen, Normal: Skin and Normal: Neurological Plan Diagnosis/Plan: Unchanged (EGD to assess etiology of GERD. Risks of bleeding and perforation were discussed with the patient and she is in agreement with the plan.) I have reviewed the history and physical and performed a pertinent physical examination on my patient. No changes have occurred unless specified. Time Spent With Patient Time: Total time managing care of this patient today ____ minutes.
--- NOTE | 2025-05-26 10:39 | P.BOP_ITS ---
Brief Operative Note Date of Service: 05/26/25 Pre-op diagnosis: GERD Procedure: PROCEDURE DATE: 05/26/2025 PREOPERATIVE DIAGNOSIS: GERD POSTOPERATIVE DIAGNOSIS: ?Same as above. Small diaphragmatic hernia PROCEDURE: [id number] with biopsies Surgeon: Alejandro Mccarthy M.D.. Ph.D. Marketing Information Coordinator: None ? Anesthesia: IV sedation Estimated blood loss: ?Minimal FINDINGS AND PROCEDURE: ? OPERATIVE INDICATIONS: ?The patient is a 70 year old female known to me who is interested in bariatric surgery. The patient has GERD. Based on this information I recommended an upper endoscopy to evaluate the patient's symptoms. Risks and complications of the surgery were discussed with the patient in advance particularly the possibility of perforation or bleeding that may require surgical intervention. The patient understood the risks and was in agreement with the plan. ? PROCEDURE: After informed consent was obtained by the patient, the patient was ?transferred to the Operating Room and was placed in the supine position.? After successful induction of IV sedation, a mouth block was inserted and the patient was placed in the left lateral decubitus position. An upper endoscopy was performed next, the oropharynx and esophagus appeared within the normal limits. There was a small 2cm hiatal hernia. The z-line was smooth. Two biopsies were obtained from the distal esophagus 2-3 cm proximal to the GE junction and two additional biopsies from the GE junction. The stomach was entered and it appeared to be of normal size. There was no gastritis at distal antrum. There was no stricture or ulcer. A biopsy was obtained from the gastric fundus and the antrum. No significant bleeding was noted from any of the biopsy sites. Retroflexion of the scope confirmed the presence of a small diaphragmatic hernia. The scope was then advanced into the duodenum which appeared to be normal as well. At that point the duodenum ?and the stomach were decompressed and the scope was withdrawn from the patient's mouth. The patient extubated and was transferred in stable condition to the Recovery Room for further care. I was present and performed all steps of the procedure. There were no residents to assist with this case. Matt Mccarthy M.D., Ph.D. Surgeon: Jarvis Mccarthy MD Anesthesia: MAC Was an Marketing Information Coordinator used for this Procedure?: No Estimated blood loss (mL): 0 IV fluids (mL): 400 Urine output (mL): 0 (No Donaldson to record output) Pathology: other (1) antrum x1, 2) fundus x1, 3) GE junction x2, 4) distal esophagus x2) Condition: stable Disposition: PACU
[2025-05-26 11:02] VITALS: BP 106/67; PULSE 77; RESP 16; TEMP 36.2; O2SAT 92
[2025-05-26 11:16] VITALS: BP 131/75; PULSE 73; RESP 16; TEMP 36.2; O2SAT 93
== END 2025-05-26 11:44 | disposition home or self-care (01) ==
PROVIDERS: Nurse Practitioner; PCP Nurse Practitioner Family; Visit Provider Surgery
PROC: 0DJ08ZZ Inspection of Upper Intestinal Tract, Via Natural or Artificial Opening Endoscopic (ICD-10-PCS; CPT 43235; principal; 2025-05-26 11:00)
DX: K21.9 Gastro-esophageal reflux disease without esophagitis (principal); E66.01 Morbid (severe) obesity due to excess calories; Z68.43 Body mass index [BMI] 50.0-59.9, adult; K44.9 Diaphragmatic hernia without obstruction or gangrene; I10 Essential (primary) hypertension; M19.90 Unspecified osteoarthritis, unspecified site; K29.70 Gastritis, unspecified, without bleeding; G47.33 Obstructive sleep apnea (adult) (pediatric); I26.02 Saddle embolus of pulmonary artery with acute cor pulmonale; I82.509 Chronic embolism and thrombosis of unspecified deep veins of unspecified lower extremity; Z95.828 Presence of other vascular implants and grafts; D83.9 Common variable immunodeficiency, unspecified; F33.2 Major depressive disorder, recurrent severe without psychotic features; F41.1 Generalized anxiety disorder; F43.10 Post-traumatic stress disorder, unspecified; Z79.01 Long term (current) use of anticoagulants; Z99.89 Dependence on other enabling machines and devices; Z79.899 Other long term (current) drug therapy; Z88.1 Allergy status to other antibiotic agents; Z88.2 Allergy status to sulfonamides; Z88.8 Allergy status to other drugs, medicaments and biological substances
CPT/HCPCS: 43239; 36415; 85610; 88305; 88313; 88342; J2003; J2704

== ENCOUNTER → 2025-05-26 09:19 | Outpatient (BNV) | payer OTHER, SELFPAY | PROVIDERS: PCP Nurse Practitioner Family; Visit Provider Surgery | DX: K44.9 Diaphragmatic hernia without obstruction or gangrene (principal) | CPT/HCPCS: 43239 ==

== ENCOUNTER → 2025-06-02 08:17 | Outpatient (REF) | payer OTHER, SELFPAY ==
--- NOTE | 2025-06-02 08:20 | CA_ITS ---
Acquisition Time: 2025-06-02 08:31:34 Total Exercise Time: 00:03:51 Test Indications: Abnormal ECG Medications: SEE H&P Protocol: DEBBIE Max HR: 146 BPM 90% of Pred: 161 BPM Max BP: 170/64 mmHG Max Work Load: 5.6 METS Exercise stress test with exercise 3 mins 51 secs of Debbie Protocol, achieving 88% MPHR, requesting to stop due to leg weakness and safety, with reports of SOB, no chest pain, without any arrythmias, with normotensive response to exercise. Without any EKG changes meeting criteria for ischemia at achieved workload. In recovery, pt's breathing improved and feeling back to baseline. Echo images obtained by tech at rest and post peak exercise. Definity contrast utilized. Test reviewed with Dr. Saxena. Referred By: Jarvis Mccarthy Electronically Signed By: Marlon Pérez
== END ==
LOC: HO.CARD 08:17
PROVIDERS: PCP Nurse Practitioner Family; Visit Provider Surgery
DX: R94.31 Abnormal electrocardiogram [ECG] [EKG] (principal)
CPT/HCPCS: 93350; Q9957

== ENCOUNTER → 2025-06-02 08:20 | Outpatient (BNV) | payer OTHER, SELFPAY | PROVIDERS: PCP Nurse Practitioner Family | DX: R06.02 Shortness of breath (principal) | CPT/HCPCS: 93016; 93018; 93350; 93352 ==

== ENCOUNTER 2025-06-03 08:19 | Outpatient (AMB) | payer OTHER, SELFPAY ==
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
== END 2025-06-03 09:55 | disposition home or self-care (01) ==
LOC: HO.HBST 08:19
PROVIDERS: PCP Nurse Practitioner Family; Visit Provider Counselor Mental Health
DX: F33.2 Major depressive disorder, recurrent severe without psychotic features (principal); F43.10 Post-traumatic stress disorder, unspecified; F41.9 Anxiety disorder, unspecified; Z71.89 Other specified counseling
CPT/HCPCS: 90837

== ENCOUNTER 2025-06-22 07:40 | Outpatient (REF) | payer OTHER, SELFPAY ==
--- NOTE | ~2025-06-22 | US_ITS ---
EXAMINATION: US ABDOMEN COMPLETE WITH LIVER ELASTOGRAPHY HISTORY: E66.01 - Morbid (severe) obesity due to excess calories TECHNIQUE: Real-time grayscale ultrasound imaging of the abdomen was performed and images were reviewed. COMPARISON: There are no prior studies available for comparison. FINDINGS: Liver: The right lobe of the liver measures 16.3 cm in size. The left lobe of the liver measures 8.3 cm in size. The liver demonstrates increased echotexture, consistent with steatosis. No focal mass or intrahepatic biliary ductal dilatation is identified. There is normal hepatopedal flow in the portal vein. Ultrasound elastography of the liver was performed with 10 separate measurements of the liver parenchyma with the patient in the supine position. Measurements were obtained approximately 2 cm below Guzman's capsule and perpendicular to the capsule. The median shear wave velocity is 1.37 m/s. The interquartile range/median (IQR/median) is 0.09. Gallbladder and biliary tree: The gallbladder is unremarkable, without evidence of calculi, wall thickening, or pericholecystic fluid. There is no sonographic Mascorro sign. The common bile duct is normal in caliber measuring 4 mm. Kidneys: The right kidney measures 11.6 cm in length. The left kidney measures 10.5 cm in length. The kidneys are unremarkable, without evidence of masses, hydronephrosis, or calculi. Pancreas: The pancreatic head, neck, and body are unremarkable. The pancreatic tail is obscured by bowel gas. Spleen: The spleen is normal in size and contour, measuring 9.9 cm in length. Abdominal aorta and inferior vena cava: The visualized portions of the abdominal aorta and inferior vena cava are normal in caliber. There is no free fluid in the abdomen. US/US abdomen comp w elastography IMPRESSION: Hepatic steatosis. The median shear wave velocity in the liver is 1.37 m/s, corresponding to a median liver stiffness of 5.62 kPa. The IQR/median value is 0.09. This is indicative of a quality data set. Findings are indicative of a low elastography value which rules out advanced chronic liver disease in asymptomatic patients. REFERENCE: Society of Radiologists in Ultrasound Liver Stiffness Thresholds (2020): LIVER STIFFNESS THRESHOLDS: *Shear wave velocity less than 1.3 m/s (Liver Stiffness equal or less than 5 kPa): High probability of being normal. *Shear wave velocity less than 1.7 m/s (Liver Stiffness less than 9 kPa): In the absence of other known clinical signs, rules out compensated advanced chronic liver disease. *Shear wave velocity between 1.7-2.1 m/s (Liver Stiffness 9-13 kPa): Suggestive of compensated advanced chronic liver disease but need further test for confirmation. *Shear wave velocity between 2.1-2.4 m/s (Liver Stiffness 13-17 kPa): Rules in compensated advanced chronic liver disease. *Shear wave velocity greater than 2.4 m/s (Liver Stiffness over 17 kPa): Suggestive of clinically significant portal hypertension. QUALITY OF DATA SET: *IQR/Median value equal or less than 0.15 implies a quality data set. *IQR/Median value over 0.15 implies a poor quality data set. SIGNIFICANT CHANGE FROM PRIOR EXAM: Significant change if liver stiffness measurement is 10% or greater from prior exam. OTHER CONSIDERATIONS: The stage of liver fibrosis may be overestimated in the setting of acute hepatitis, liver inflammation, elevated liver function tests, hepatic vascular congestion, obstructive cholestasis, non-fasting state, and infiltrative diseases such as amyloidosis and lymphoma. In some patients with NAFLD, the liver stiffness thresholds for compensated advanced chronic liver disease may be lower. In causes other than viral hepatitis and NAFLD, liver stiffness thresholds are not well established. Electronically signed by: Demond Howard MD 06/22/2025 08:24 AM EDT
--- OUTSIDE RECORDS SUMMARY | 2025-06-22 07:46 | XMS_ITS | Encounter Summary ---
Author Organization [facility] Address [address] [facility] [address] [place] [address] Phone Care Team Providers Care Furniture Mechanic Name Role Phone Demond Roger MD Unavailable [phone] FeltTianna ng MD Unavailable [phone] Yasmeen Ward MD Unavailable [email or web address] Meghna Parson MD Primary Care Provi vipin Madalyn Rogers MD Primary Care Provide r Meghna Parson MD Primary Care Provi vipin Macho Vincent DO Unavailable Camila Nayak HAIR WORKER Unavailable [phone] FORESTRY PATROLMAN Unavailable Marian Alicia MD Primary Care Provider [phone] Encounter Details Date Type Department Care Team (Late st Contact Info) Description 05/29/2018 Ancillary Orders [facility], X-Ray - [address] [address] SabasLondon MD [address] [facility] [address] [place], [place] [id number] [email or web address] Pain Social History Tobacco Use Types Packs/Day [...] as of this encounter Results * XR HIP 2-3 VW RIGHT (05/29/2018 3:42 PM EDT) Anatomical Region Laterality Modality Hip Right Radiographic Jessica ging 05/29/2018 3:56 PM EDT Impressions 05/29/2018 3:57 PM EDT No significant bony abnormality. POS [id number] Narrative 05/29/2018 3:57 PM EDT COMPARISON: None FINDINGS: AP neutral and frog-lateral views disclose no fracture, subluxation, or other acute bony abnormality. No significant joint space narrowing, periarticular spurring, or aberrant soft tissue calcifications of significance are identified. Femoral head articular surface is smooth. Procedure Note Uzair Joe MD - 05/29/2018 COMPARISON: None FINDINGS: AP neutral and frog-lateral views disclose no fracture, subluxation, orother acute bony abnormality. No significant joint space narrowing,periarticular spurring, or aberrant soft tissue calcifications ofsignificance are identified. Femoral head articular surface is smooth. IMPRESSION: No significant bony abnormality. POS [id number] London Obregon MD IMG XR PELVIS Final Result documented in this encounter Visit Diagnoses Diagnosis Pain Generalized pain Pain Generalized pain documented in this encounter Additional Health Concerns Infection Onset Date Last Indicated Resolved Time CoV-Exposed Comment:Recent close contact documented in the COVID-19 PCR/PRO order 09/25/2021 10/03/2021 10/10/2021 1:[address] CoV-Presumed 10/09/2022 10/09/2022 10/30/2022 1:21 AM EST CoV-Risk 03/01/2023 03/01/2023 03/12/2023 1:22 AM EDT documented as of this encounter Care Teams Furniture Mechanic Relationship Specialty Start Date End Date Meghna Parson MD [email or web address] PCP - General Internal Medicine 08/19/17 11/29/19 Madalyn Rogers MD [address] [place] [address] PCP - General 11/30/19 12/30/20 Meghna Parson MD [email or web address] PCP - General Internal Medicine 12/31/20 01/04/22 Marian Alicia MD [address] [place] [address] [email or web address] PCP - General Family Medicine 01/05/22 Demond Roger MD [address] [place] [address] [email or web address] Historical LMR Provider 02/24/15 10/21/21 Tianna Coello MD [address] [place] [address] [email or web address] Historical LMR Provider 02/24/15 10/21/21 Yasmeen Ward MD [email or web address] Historical LMR Provider 02/24/1510/21 Macho Vincent DO [address] [place] [address] [email or web address] Primary Oncologist Hematology and Oncology 09/13/21 Camila Nayak FNP [address] [place] [address] [email or web address] Nurse Practitioner Medical Oncology 11/03/21 Mile Reynolds CNP [address] [place] [address] [email or web address] Nurse Practitioner Medical Oncology 11/03/21 documented as of this encounter Additional Source Comments The information contained in this document represents components of the legal health record. It is not the complete legal health record.[facility]
--- OUTSIDE RECORDS SUMMARY | 2025-06-22 07:46 | XMS_ITS | Encounter Summary ---
Author Organization [facility] Address [address] [address] Phone Care Team Providers Care Train Attendant Name Role Phone Demond Roger MD Unavailable [phone] FeltTianna ng MD Unavailable [phone] Yasmeen Ward MD Unavailable [email or web address] Meghna Parson MD Primary Care Provi vipin Macho Vincent W DO Unavailable [phone] Camila Nayak LINE INSTALLER Unavailable [phone] SOFT DRINK POWDER MIXER Unavailable Marian Alicia MD Primary Care Provider [phone] Reason for Referral * Consultation (Elective) - Closed Specialty Diagnoses / Procedures Referred By Thompson t Referred To Contact Pulmonary Disease Meghna Parson MD Phone: tel: mailto:[email or web address] [address] [address] Phone: tel: Referral ID Status Reason Start Date Expiration Date Visits Re quested Visits Authorized [id number] Closed 08/25/2021 08/25/2022 1 1 Encounter Details Date Type Department Care Team (Late st Contact Info) Description 08/25/2021 Transcribe Orders [facility], Allergy and Critical Care Medicine [address] [place] [address] [place] [address] Meghna Parson MD [address] [place] [address] [email or web address] Social History Tobacco Use Types Packs/Day Years [...] as of this encounter Plan of Treatment Scheduled Referrals Name Type Priority Associated Diagnoses Order Schedule Ambulatory referral to [facility] Pulmonology Outpatient Referral Routine Ordered: 08/25/2021 documented as of this encounter Visit Diagnoses Not on filedocumented in this encounter Additional Health Concerns Infection Onset Date Last Indicated Resolved Time CoV-Exposed Comment:Recent close contact documented in the COVID-19 PCR/PRO order 09/25/2021 10/03/2021 10/10/2021 1:[address] CoV-Presumed 10/09/2022 10/09/2022 10/30/2022 1:21 AM EST CoV-Risk 03/01/2023 03/01/2023 03/12/2023 1:22 AM EDT documented as of this encounter Care Teams Train Attendant Relationship Specialty Start Date End Date Meghna Parson MD [email or web address] PCP - General Internal Medicine 12/31/20 01/04/22 Marian Alicia MD [address] [place] [address], [address] [place] [address] [email or web address] PCP - General Family Medicine 01/05/22 Demond Roger MD [address] [place] [address] [email or web address] Historical LMR Provider 02/24/15 10/21/21 Tianna Coello MD [address] [place] [address] [email or web address] Historical LMR Provider 02/24/15 10/21/21 Yasmeen Ward MD [email or web address] Historical LMR Provider 02/24/1510/21 Macho Vincent DO [address] [place] [address] [email or web address] Primary Oncologist Hematology and Oncology 09/13/21 Camila Nayak FNP [address] [place] [address] [email or web address] Nurse Practitioner Medical Oncology 11/03/21 Mile Reynolds CNP [address] [place] [address] [email or web address] Nurse Practitioner Medical Oncology 11/03/21 documented as of this encounter Additional Source Comments The information contained in this document represents components of the legal health record. It is not the complete legal health record.[facility]
--- OUTSIDE RECORDS SUMMARY | 2025-06-22 07:46 | XMS_ITS | Encounter Summary ---
Author Organization [facility] Address [address] [facility] [address] [place] [address] Phone Care Team Providers Care Meter Engineer Name Role Phone Demond Roger MD Unavailable [phone] FeltTianna ng MD Unavailable [phone] Yasmeen Ward MD Unavailable [email or web address] Meghna Parson MD Primary Care Provi vipin Madalyn Rogers MD Primary Care Provide r Meghna Parson MD Primary Care Provi vipin Macho Vincent DO Unavailable Camila Nayak VETERANS' COORDINATOR Unavailable [address] PRINCIPAL TECHNICAL SPECIALIST Unavailable Marian Alicia MD Primary Care Provider [phone] Encounter Details Date Type Department Care Team (Late st Contact Info) Description 04/17/2018 Ancillary Orders [facility], X-Ray - [address] [address] Meghna Parson MD [address] [place], [place] [phone] [email or web address]; [email or web address] Social History Tobacco Use Types Packs/Day Years [...] as of this encounter Results * XR CHEST PA AND LATERAL 2 VIEWS (04/17/2018 11:19 AM EDT) Anatomical Region Laterality Modality Chest Radiographic Jessica ging 04/17/2018 11:3 3 AM EDT Impressions 04/17/2018 12:16 PM EDT No evidence of an acute cardiopulmonary process. POS - [id number] Narrative 04/17/2018 12:16 PM EDT HISTORY: See above. COMPARISON: Multiple prior most recent 03/03/2018 FINDINGS: PA and lateral views of the chest are performed. No focal infiltrate, pleural effusion, or evidence of pulmonary edema. No pneumothorax detected. Heart and mediastinal contours are within normal limits. No new compression deformities. Procedure Note Cj Redmond MD - 04/17/2018 HISTORY: See above. COMPARISON: Multiple prior most recent 03/03/2018 FINDINGS: PA and lateral views of the chest are performed. No focal infiltrate,pleural effusion, or evidence of pulmonary edema. No pneumothoraxdetected. Heart and mediastinal contours are within normal limits. Nonew compression deformities. IMPRESSION: No evidence of an acute cardiopulmonary process. POS - [id number] Meghna Parson MD IMG XR CHEST Fin al Result documented in this encounter Visit Diagnoses Diagnosis Cough Wheezing Cough Wheezing documented in this encounter Additional Health Concerns Infection Onset Date Last Indicated Resolved Time CoV-Exposed Comment:Recent close contact documented in the COVID-19 PCR/PRO order 09/25/2021 10/03/2021 10/10/2021 1:[address] CoV-Presumed 10/09/2022 10/09/2022 10/30/2022 1:2 1 AM EST CoV-Risk 03/01/2023 03/01/2023 03/12/2023 1:22 AM EDT documented as of this encounter Care Teams Meter Engineer Relationship Specialty Start Date End Date Meghna Parson MD [email or web address] PCP - General Internal Medicine 08/19/17 11/29/19 Madalyn Rogers MD [address] [place] [address] PCP - General 11/30/19 12/30/20 Meghna Parson MD [email or web address] PCP - General Internal Medicine 12/31/20 01/04/22 Marian Alicia MD [address] [place] [address] [email or web address] PCP - General Family Medicine 01/05/22 Demond Roger MD [address] [place] [address] [email or web address] Historical LMR Provider 02/24/15 10/21/21 Tianna Coello MD [address] [place] [address] [email or web address] Historical LMR Provider 02/24/15 10/21/21 Yasmeen Ward MD [email or web address] Historical LMR Provider 02/24/1510/21 Macho Vincent DO [address] [place] [address] [email or web address] Primary Oncologist Hematology and Oncology 09/13/21 Camila Nayak FNP [address] [place] [address] [email or web address] Nurse Practitioner Medical Oncology 11/03/21 Mile Reynolds CNP [address] [place] [address] [email or web address] Nurse Practitioner Medical Oncology 11/03/21 documented as of this encounter Additional Source Comments The information contained in this document represents components of the legal health record. It is not the complete legal health record.[facility]
--- OUTSIDE RECORDS SUMMARY | 2025-06-22 07:46 | XMS_ITS | Encounter Summary ---
Author Organization [facility] Address [address] [place] [address] Phone Care Team Providers Care Fish Receiver Name Role Phone Aretha Bain NP Primary Care Provider [phone] Encounter Details Date Type Department Care Team (Late Contact Info) Description 08/12/2023 Documentation Only [facility] [address] [place] [phone] Marian Alicia MD [address] [place] [address] Social History Tobacco Use Types Packs/Day Years [...] Visit [facility] [address] [place] [phone] Jamison Avila MD [address] [place] [address] [place] [address] documented as of this encounter Visit Diagnoses Not on filedocumented in this encounter Care Teams Fish Receiver Relationship Specialty Start Date End Date Aretha Bain NP [address] [place] [address] 1 [place] [address] PCP - General Nurse Practitioner 04/12/25 documented as of this encounter
--- OUTSIDE RECORDS SUMMARY | 2025-06-22 07:46 | XMS_ITS | Encounter Summary ---
Author Organization [facility] Address [address] [facility] [address] [place] [address] Phone Care Team Providers Care Vacuum Metalizer Operator Name Role Phone Demond Roger MD Unavailable [phone] FeltTianna ng MD Unavailable [phone] Yasmeen Ward MD Unavailable [email or web address] Meghna Parson MD Primary Care Provi vipin Madalyn Rogers MD Primary Care Provide r Meghna Parson MD Primary Care Provi vipin Macho Vincent DO Unavailable [phone] Camila Nayak NARCOTICS AND/OR VICE DETECTIVE Unavailable [phone] ZIGZAG TOPSTITCHER Unavailable Marian Alicia MD Primary Care Provider [phone] Encounter Details Date Type Department Care Team (Latest Contact Info) Description 07/21/2018 Transcribe Orders [facility] Laboratory [address] [place] [address] Steven Trinidad, DO [address] [facility], [address] [place] [address] [email or web address] Hypogammaglobulinemia (Primary Dx) Social History Tobacco Use Types Packs/Day Years [...] documented as of this encounter Results * (ABNORMAL) Immunoglobulins IgG, IgA, IgM (07/21/2018 10:41 AM EDT) Pathologist [facility] IMMUNOGLOBULIN G 478(L) 700 - 1,600 mg/dL [facility] IgA 67(L) 70 - 400 mg/dL [facility] IMMUNOGLOBULIN M 43 40 - 230 mg/dL [facility] Blood 07/21/2018 10:4 1 AM EDT 07/21/2018 10:52 AM EDT us Steven Trinidad DO LAB BLOOD ORDERABLES Final R esult [facility] [address] [place] [address] * (ABNORMAL) IgG subclasses (07/21/2018 10:41 AM EDT) Pathologist [facility] IGG 1 217(L) 341 - 894 mg/dL [facility] DPT OF LAB MED AND PAT+ IGG 2 181 171 - 632 mg/dl [facility] DPT OF LAB MED AND PAT+ IGG 3 85.1 18.4 - 106.0 mg/dl [facility] DPT OF LAB MED AND PAT+ IGG 4 10.7 2.4 - 121.0 mg/dl [facility] DPT OF LAB MED AND PAT+ TOTAL IGG 463(L) 767 - 1,590 mg/dl [facility] DPT OF LAB MED AND PAT+ Blood 07/21/2018 10:4 1 AM EDT 07/21/2018 10:51 AM EDT Steven Trinidad DO LAB BLOOD ORDERABLES Final R esult [facility] DPT OF LAB MED AND PAT+ [address] [place] [address] * (ABNORMAL) Monoclonal protein study, serum (07/21/2018 10:41 AM EDT) TOTAL PROTEIN 5.9(L) 6.3 - 7.9 g/dL [facility] DPT OF LAB MED AND PAT+ ALBUMIN 3.2(L) 3.4 - 4.7 g/dL [facility] DPT OF LAB MED AND PAT+ ALPHA-1 GLOBULIN 0.2 0.1 - 0.3 g/dL [facility] DPT OF LAB MED AND PAT+ ALPHA-2 GLOBULIN 1.0 0.6 - 1.0 g/dL [facility] DPT OF LAB MED AND PAT+ BETA-GLOBULIN 0.9 0.7 - 1.2 g/dL [facility] DPT OF LAB MED AND PAT+ GAMMA-GLOBULIN 0.5(L) 0.6 - 1.6 g/dL [facility] DPT OF LAB MED AND PAT+ A/G RATIO 1.19 [facility] DPT OF LAB MED AND PAT+ M SPIKE Test component not applicable or not reported. not reported [facility] DPT OF LAB MED AND PAT+ M SPIKE Test component not applicable or not reported. not reported [facility] DPT OF LAB MED AND PAT+ IMPRESSION SEE NOTE [facility] DPT OF LAB MED AND PAT+ Comment: (NOTE) Hypogammaglobulinemia See Immunofixation. IMMUNOFIXATION No monoclonal protein detected. [facility] DPT OF LAB MED AND PAT+ Blood 07/21/2018 10:4 1 AM EDT 07/21/2018 10:51 AM EDT Steven Trinidad DO LAB BLOOD ORDERABLES Final R esult [facility] DPT OF LAB MED AND PAT+ [address] [place] [address] * Tetanus antitoxoid antibody, IgG (07/21/2018 10:41 AM EDT) Tetanus Ab, IgG Positive [facility] LAB MED/PATH [facility]ODGE Comment: (NOTE) REFERENCE VALUE Vaccinated: Positive (>= 0.01 IU/mL) Unvaccinated: Negative (< 0.01 IU/mL) Tetanus IgG Value 1.97 IU/mL [facility] LAB MED/PATH SUPERIOR Comment: (NOTE) ADDITIONAL INFORMATION This test was developed and its performance characteristics determined by [facility] in a manner consistent with CLIA requirements. This test has not been cleared or approved by the U.S. Food and Drug Administration. Blood 07/21/2018 10:4 1 AM EDT 07/21/2018 10:51 AM EDT Steven Trinidad LAB BLOOD ORDERABLES Final R esult [facility] LAB MED/PATH [address] [place] [address] * (ABNORMAL) Comprehensive metabolic panel (07/21/2018 10:41 AM EDT) Pathologist [facility] SODIUM 145 133 - 146 mmol/L [facility] POTASSIUM 4.0 3.3 - 5.1 mmol/L [facility] CHLORIDE 106 96 - 108 mmol/L [facility] CO2 28 21 - 35 mmol/L [facility] BUN 14 6 - 19 mg/dL [facility] CREATININE 1.00 0.5 - 1.5 mg/dL [facility] GLUCOSE 84 70 - 99 mg/dL [facility] ALBUMIN 4.1 3.9 - 4.8 g/dL [facility] TOTAL PROTEIN 6.1(L) 6.5 - 8.0 g/dL [facility] CALCIUM 9.6 8.4 - 10.3 mg/dL [facility] ALKALINE PHOSPHATASE 70 39 - 117 U/L [facility] TOTAL BILIRUBIN 0.3 0.0 - 1.2 mg/dL [facility] AST 21 0 - 37 U/L [facility] ALT 14 0 - 40 U/L [facility] GLOBULIN 2.0 1 - 4.8 g/dL [facility] EGFR 65 >59 mL/min/1.7 3m2 [facility] Comment:If patient is black, multiply result by 1.159. Estimated glomerular filtration rate calculated using the CKD-EPI equation. ANION GAP 15 10 - 20 mmol/L [facility] Blood 07/21/2018 10:4 1 AM EDT 07/21/2018 10:52 AM EDT us Steven Trinidad DO LAB BLOOD ORDERABLES Final R esult [facility] [address] [place] [address] * (ABNORMAL) CBC and differential (07/21/2018 10:41 AM EDT) WBC 7.14 3.40 - 11.20 K/uL [facility] RBC 4.86(H) 3.80 - 4.80 M/uL [facility] HGB 14.6 12.0 - 15.0 g/dL [facility] HCT 43.4 36.0 - 46.0 % [facility] PLT 259 130 - 400 K/uL [facility] MCV 89.3 79.0 - 98.0 fL [facility] MCH 30.0 27.0 - 34.8 pg [facility] MCHC 33.6 31.5 - 36.0 g/dL [facility] RDW 13.0 10.8 - 14.6 % [facility] MPV 10.0 9.4 - 12.4 fl [facility] NRBC 0.00 /100 WBCs [facility] ABSOLUTE NRBC 0.00 K/uL [facility] DIFF METHOD Auto [facility] NEUTS 58.4 45.30 - 77.70 % [facility] LYMPHS 32.5 12.30 - 39.70 % [facility] MONOS 6.7 4.10 - 12.80 % [facility] EOS 1.5 0 - 7.2 % [facility] BASOS 0.3 0 - 2.80 % [facility] Granulocytes, immature (%) 0.6 0.0 - 0.9 % [facility] ABSOLUTE NEUTS 4.17 1.40 - 7.70 K/uL [facility] ABSOLUTE LYMPHS 2.32 0.60 - 3.20 K/uL [facility] ABSOLUTE MONOS 0.48 0.11 - 0.59 K/uL [facility] ABSOLUTE EOS 0.11 0.01 - 0.50 K/uL [facility] ABSOLUTE BASOS 0.02 0.00 - 0.08 K/uL [facility] Granulocytes, immature 0.04 0.00 - 0.05 K/uL [facility] Blood 07/21/2018 10:4 1 AM EDT 07/21/2018 10:52 AM EDT Steven Trinidad DO LAB BLOOD ORDERABLES Final R esult Performing Organization Address City/State/[facility] Co de Phone Number [address] [address] documented in this encounter Visit Diagnoses Diagnosis Hypogammaglobulinemia- Primary Unspecified hypogammaglobulinemia documented in this encounter Additional Health Concerns Infection Onset Date Last Indicated Resolved Time CoV-Exposed Comment:Recent close contact documented in the COVID-19 PCR/PRO order 09/25/2021 10/03/2021 10/10/2021 1:[address] CoV-Presumed 10/09/2022 10/09/2022 10/30/2022 1:21 AM EST CoV-Risk 03/01/2023 03/01/2023 03/12/2023 1:22 AM EDT documented as of this encounter Care Teams Vacuum Metalizer Operator Relationship Specialty Start Date End Date Meghna Parson MD [email or web address] PCP - General Internal Medicine 08/19/17 11/29/19 Madalyn Rogers MD [address] [place] [address] PCP - General 11/30/19 12/30/20 Meghna Parson MD [email or web address] PCP - General Internal Medicine 12/31/20 01/04/22 Marian Alicia MD [address] [place] [address] [address] [place] [address] [email or web address] PCP - General Family Medicine 01/05/22 Demond Roger MD [address] [place] [address] [email or web address] Historical LMR Provider 02/24/15 10/21/21 Tianna Coello MD [address] [place] [address] [email or web address] Historical LMR Provider 02/24/15 10/21/21 Yasmeen Ward MD [email or web address] Historical LMR Provider 02/24/1510/21 Macho Vincent DO [address] [place] [address] [email or web address] [email or web address]. [facility] Primary Oncologist Hematology and Oncology 09/13/21 Camila Nayak FNP [address] [place] [address] [email or web address] Nurse Practitioner Medical Oncology 11/03/21 Mile Reynolds CNP [address] [place] [address] [email or web address] Nurse Practitioner Medical Oncology 11/03/21 documented as of this encounter Additional Source Comments The information contained in this document represents components of the legal health record. It is not the complete legal health record.[facility]
--- OUTSIDE RECORDS SUMMARY | 2025-06-22 07:46 | XMS_ITS | Encounter Summary ---
Author Organization [facility] Address [address] [facility] [address] [place] [address] Phone Care Team Providers Care Personalized Living Assistant Name Role Phone Demond Roger MD Unavailable [phone] FeltTianna ng MD Unavailable [phone] Yasmeen Ward MD Unavailable [email or web address] Meghna Parson MD Primary Care Provi vipin Madalyn Rogers MD Primary Care Provide r Meghna Parson MD Primary Care Provi vipin Macho Vincent DO Unavailable Camila Nayak REHABILITATION TECH Unavailable Mile Reynolds BOX CAR CHECKER Unavailable Marian Alicia MD Primary Care Provider [phone] Encounter Details Date Type Department Care Team (Late st Contact Info) Description 01/26/2019 Ancillary Orders [facility], X-Ray - [address] [address] Meghna Parson MD [address] [place], [place] [id number] [email or web address] Hip pain, left Social History Tobacco Use Types Packs/Day Years [...] of this encounter Results * XR HIP 2 VW LEFT PLUS PELVIS (01/26/2019 2:45 PM EDT) Anatomical Region Laterality Modality Hip Left Radiographic Jessica ging 01/26/2019 3:02 PM EDT Impressions 01/26/2019 3:05 PM EDT No acute fracture or bony displacement is seen. No definitive explanation for left hip pain is seen. There are degenerative changes evident at the L4-5 disc space level. S/S: Fall 6 weeks ago, left hip pain POS - [id number] Narrative 01/26/2019 3:05 PM EDT COMPARISON: Left hip x-ray 05/26/2015 FINDINGS: An AP film of the pelvis obtained along with 2 separate coned-down views of the left hip. There are negligible degenerative changes in the hips. No acute bony injury or bony displacement is evident. No periarticular calcifications are seen. The SI joints are unremarkable. There are degenerative changes at the L4-5 interspace. Procedure Note Volodymyr Rubin MD - 01/26/2019 COMPARISON: Left hip x-ray 05/26/2015 FINDINGS: An AP film of the pelvis obtained along with 2 separate coned-down viewsof the left hip. There are negligible degenerative changes in the hips. No acute bony injury or bony displacement is evident. No periarticular calcifications are seen. The SI joints are unremarkable. There are degenerative changes at the L4-5 interspace. IMPRESSION: No acute fracture or bony displacement is seen. No definitive explanationfor left hip pain is seen. There are degenerative changes evident at theL4-5 disc space level. S/S: Fall 6 weeks ago, left hip pain POS - [id number] Meghna Parson MD IMG XR PELVIS Fin al Result documented in this encounter Visit Diagnoses Diagnosis Hip pain, left Pain in joint, pelvic region and thigh Hip pain, left Pain in joint, pelvic region and thigh documented in this encounter Additional Health Concerns Infection Onset Date Last Indicated Resolved Time CoV-Exposed Comment:Recent close contact documented in the COVID-19 PCR/PRO order 09/25/2021 10/03/2021 10/10/2021 1:[address] CoV-Presumed 10/09/2022 10/09/2022 10/30/2022 1:21 AM EST CoV-Risk 03/01/2023 03/01/2023 03/12/2023 1:22 AM EDT documented as of this encounter Care Teams Personalized Living Assistant Relationship Specialty Start Date End Date Meghna Parson MD [email or web address] PCP - General Internal Medicine 08/19/17 11/29/19 Madalyn Rogers MD [address] [place] [address] PCP - General 11/30/19 12/30/20 Meghna Parson MD [email or web address] PCP - General Internal Medicine 12/31/20 01/04/22 Marian Alicia MD [address] [place] [address] 7 [place] [address] [email or web address] PCP - General Family Medicine 01/05/22 Demond Roger MD [address] [place] [address] [email or web address] Historical LMR Provider 02/24/15 10/21/21 Tianna Coello MD [address] [place] [address] [email or web address] Historical LMR Provider 02/24/15 10/21/21 Yasmeen Ward MD [email or web address] Historical LMR Provider 02/24/1510/21 Macho Vincent DO [address] [place] [address] [email or web address] Primary Oncologist Hematology and Oncology 09/13/21 Camila Nayak FNP [address] [place] [address] Nurse Practitioner Medical Oncology 11/03/21 Mile Reynolds CNP [address] [place] [address] Nurse Practitioner Medical Oncology 11/03/21 documented as of this encounter Additional Source Comments The information contained in this document represents components of the legal health record. It is not the complete legal health record.[facility]
--- OUTSIDE RECORDS SUMMARY | 2025-06-22 07:46 | XMS_ITS | Encounter Summary ---
Author Organization [facility] Address [address] [facility] [address] [place] [address] Phone Care Team Providers Care Improvement Manager Name Role Phone Demond Roger MD Unavailable [phone] FeltmateTianna MD Unavailable [phone] Yasmeen Ward MD Unavailable [email or web address] Madalyn Rogers MD Primary Care Provide r Meghna Parson MD Primary Care Provi vipin Macho Vincent W DO Unavailable Camila Nayak HOGSHEAD HOOPER Unavailable Mile Reynolds STUD DRIVER Unavailable Marian Alicia MD Primary Care Provider [phone] Encounter Details Date Type Department Care Team (Late st Contact Info) Description 07/14/2020 Procedure Pass [facility], [address] [id number] Social History Tobacco Use Types Packs/Day Years [...] documented as of this encounter Care Teams Improvement Manager Relationship Specialty Start Date End Date Madalyn Rogers MD [address] [place] [address] PCP - General 11/30/19 12/30/20 Meghna Parson MD [address] [place] [address] [email or web address] PCP - General Internal Medicine 12/31/20 01/04/22 Marian Alicia MD [address] [place] [address], [facility] 7 [place] [address] [email or web address] PCP - General Family Medicine 01/05/22 Demond Roger MD [address] [place] [address] [email or web address] Historical LMR Provider 02/24/15 10/21/21 Tianna Coello MD [address] [place] [address] [email or web address] Historical LMR Provider 02/24/15 10/21/21 Yasmeen Ward MD [email or web address] Historical LMR Provider 02/24/1510/21 Macho Vincent DO [address] [place] [address] [email or web address] Primary Oncologist Hematology and Oncology 09/13/21 Camila Nayak FNP [address] [place] [address] [email or web address] Nurse Practitioner Medical Oncology 11/03/21 Mile Reynolds CNP [address] [place] [address] [email or web address] Nurse Practitioner Medical Oncology 11/03/21 documented as of this encounter Additional Source Comments The information contained in this document represents components of the legal health record. It is not the complete legal health record.[facility]
--- OUTSIDE RECORDS SUMMARY | 2025-06-22 07:46 | XMS_ITS | Encounter Summary ---
Author Organization [facility] Address [address] [facility] [address] [place] [address] Phone Care Team Providers Care Chef Manager Name Role Phone Demond Roger MD Unavailable [phone] FeltmateTianna MD Unavailable [phone] Yasmeen Ward MD Unavailable [email or web address] Madalyn Rogers MD Primary Care Provide r Meghna Parson MD Primary Care Provi vipin CarltonMacho gary W DO Unavailable [phone] Camila Nayak CHEMISTRY TECHNICAL OFFICER Unavailable [phone] [employer] PESTICIDE USE MEDICAL COORDINATOR Unavailable Marian Alicia MD Primary Care Provider [phone] Encounter Details Date Type Department Care Team (Late st Contact Info) Description 07/14/2020 Ancillary Orders Virtual Department [address] [place] [address] Meghna Parson MD [address] [place], [place] [phone] [email or web address] Breast screening Social History Tobacco Use Types Packs/Day Years [...] documented as of this encounter Results * BI MAMMOGRAM SCREENING WITH TOMOSYNTHESIS WITH CAD (BILATERAL) (09/09/2020 7:57 AM EST) Anatomical Region Laterality Modality Breast Left, Breast Right, Breast Bilateral Bila teral Mammography 09/09/2020 8:04 AM EST Impressions 09/09/2020 8:06 AM EST No mammographic evidence of malignancy. BI-RADS CATEGORY: 1 - Negative. DENSITY: There are scattered fibroglandular densities. Narrative 09/09/2020 8:06 AM EST Standard digital full-field 2-D C view and two-plane tomographic imaging was performed and compared with multiple prior studies, most recently 09/07/2019, with utilization of computer-aided detection. The breasts are composed of scattered fibroglandular densities. The stromal markings are essentially unchanged in overall appearance and distribution. No dominant spiculated mass, suspicious clustered microcalcifications, or focal zone of pathologic skin thickening or retraction are noted to have arisen in the interim. Procedure Note Thad Edwards MD - 09/09/2020 Standard digital full-field 2-D C view and two-plane tomographic imagingwas performed and compared with multiple prior studies, most ilfdwqvc35/25/2019, with utilization of computer-aided detection. The breasts are composed of scattered fibroglandular densities. Thestromal markings are essentially unchanged in overall appearance anddistribution. No dominant spiculated mass, suspicious clusteredmicrocalcifications, or focal zone of pathologic skin thickening orretraction are noted to have arisen in the interim. IMPRESSION: No mammographic evidence of malignancy. BI-RADS CATEGORY: 1 - Negative. DENSITY: There are scattered fibroglandular densities. us Meghna Parson MD IMG MG EXAMS Fin al Result documented in this encounter Visit Diagnoses Diagnosis Breast screening Breast screening, unspecified Breast screening Breast screening, unspecified documented in this encounter Additional Health Concerns Infection Onset Date Last Indicated Resolved Time CoV-Exposed Comment:Recent close contact documented in the COVID-19 PCR/PRO order 09/25/2021 10/03/2021 10/10/2021 1:[address] CoV-Presumed 10/09/2022 10/09/2022 10/30/2022 1:21 AM EST CoV-Risk 03/01/2023 03/01/2023 03/12/2023 1:22 AM EDT documented as of this encounter Care Teams Chef Manager Relationship Specialty Start Date End Date Madalyn Rogers MD [address] [place] [address] PCP - General 11/30/19 12/30/20 Meghna Parson MD [address] [place] [address] [email or web address] PCP - General Internal Medicine 12/31/20 01/04/22 Marian Alicia MD [address] [place] [address], [facility] 7 [place] [address] [email or web address] PCP - General Family Medicine 01/05/22 Demond Roger MD [address] [place] [address] [email or web address] Historical LMR Provider 02/24/15 10/21/21 Tianna Coello MD [address] [place] [address] [email or web address] Historical LMR Provider 02/24/15 10/21/21 Yasmeen Ward MD [email or web address] Historical LMR Provider 02/24/1510/21 Macho Vincent DO [address] [place] [address] [email or web address] Primary Oncologist Hematology and Oncology 09/13/21 Camila Nayak FNP [address] [place] [address] [email or web address] Nurse Practitioner Medical Oncology 11/03/21 Mile Reynolds CNP [address] [place] [address] [email or web address] Nurse Practitioner Medical Oncology 11/03/21 documented as of this encounter Additional Source Comments The information contained in this document represents components of the legal health record. It is not the complete legal health record.[facility]
--- OUTSIDE RECORDS SUMMARY | 2025-06-22 07:46 | XMS_ITS | Encounter Summary ---
Author Organization [facility] Address [address] [facility] [address] [place] [address] Phone Care Team Providers Care Production Line Solderer Name Role Phone Demond Roger MD Unavailable [phone] FeltTianna ng MD Unavailable [phone] Yasmeen Ward MD Unavailable [email or web address] Meghna Parson MD Primary Care Provi vipin Madalyn Rogers MD Primary Care Provide r Meghna Parson MD Primary Care Provi vipin Macho Vincent DO Unavailable [phone] Camila Nayak ELECTRICAL MAINTENANCE MAN Unavailable [phone] Mile Reynolds LPN RN HOSPICE Unavailable Marian Alicia MD Primary Care Provider [phone] Encounter Details Date Type Department Care Team (Late st Contact Info) Description 10/28/2018 Transcribe Orders [facility] Specimen Processing [address] [place] [address] Meghna Parson MD [address] [place], [place] [phone] [email or web address] Urinary tract infection without hematuria, site unspecified (Primary Dx) Social History Tobacco Use Types [...] as of this encounter Results * (ABNORMAL) Urine culture (10/28/2018 4:37 PM EST) Specimen Source/ Description URINE CLEAN CATCH URINE [facility] Special Requests None [facility] GRAM STAIN NO ORGANISMS SEEN [facility] Culture/Test 10,000 to 100,000 colony forming units per ml MIXED HAYLEE (3 OR MORE COLONY TYPES) Culture indicates contamination . Please resubmit if necessary.(A) [facility] Report Status 10/30/2018 FINAL [facility] Urine (Urine) 10/28/2018 4:3 7 PM EST 10/28/2018 4:39 PM EST us Meghna Parson MD MICROBIOLOGY - GENE [facility] ORDERABLES Final Result [facility] [address] [place] [address] * (ABNORMAL) Urinalysis (10/28/2018 4:37 PM EST) COLOR Yellow Yellow [facility] CLARITY Clear [facility] GLUCOSE Negative Negative [facility] BILI Negative Negative [facility] KETONES Negative Negative [facility] SPECIFIC GRAVITY 1.010 1.005 - 1.030 [facility] BLOOD Negative Negative [facility] PH 6.0 5.0 - 8.0 [facility] Protein-UA Negative Negative [facility] NITRITE Negative Negative [facility] Leukocyte esterase, ur Trace(A) Negative [facility] Urine (Urine) 10/28/2018 4:3 7 PM EST 10/28/2018 4:39 PM EST Meghna Parson MD URINE ORDERABLES Fi nal Result [facility] [address] [place] [address] documented in this encounter Visit Diagnoses Diagnosis Urinary tract infection without hematuria, site unspecified- Primary documented in this encounter Additional Health Concerns Infection Onset Date Last Indicated Resolved Time CoV-Exposed Comment:Recent close contact documented in the COVID-19 PCR/PRO order 09/25/2021 10/03/2021 10/10/2021 1:[address] CoV-Presumed 10/09/2022 10/09/2022 10/30/2022 1:21 AM EST CoV-Risk 03/01/2023 03/01/2023 03/12/2023 1:22 AM EDT documented as of this encounter Care Teams Production Line Solderer Relationship Specialty Start Date End Date Meghna Parson MD [email or web address] PCP - General Internal Medicine 08/19/17 11/29/19 Madalyn Rogers MD [address] [place] [address] PCP - General 11/30/19 12/30/20 Meghna Parson MD [email or web address] PCP - General Internal Medicine 12/31/20 01/04/22 Marian Alicia MD [address] [place] [address] 7 [place] [address] PCP - General Family Medicine 01/05/22 Demond Roger MD [address] [place] [address] [email or web address] Historical LMR Provider 02/24/15 10/21/21 Tianna Coello MD [address] [place] [address] [email or web address] Historical LMR Provider 02/24/15 10/21/21 Yasmeen Ward MD [email or web address] Historical LMR Provider 02/24/1510/21 Macho Vincent DO [address] [place] [address] [email or web address] Primary Oncologist Hematology and Oncology 09/13/21 Camila Nayak FNP [address] [place] [address] Nurse Practitioner Medical Oncology 11/03/21 Mile Reynolds CNP [address] [place] [address] [email or web address] Nurse Practitioner Medical Oncology 11/03/21 documented as of this encounter Additional Source Comments The information contained in this document represents components of the legal health record. It is not the complete legal health record.[facility]
--- OUTSIDE RECORDS SUMMARY | 2025-06-22 07:46 | XMS_ITS | Encounter Summary ---
Author Organization [facility] Address [address] [address] Phone Care Team Providers Care Bowl Sander Name Role Phone Demond Roger MD Unavailable [phone] FeltTianna ng MD Unavailable [phone] Yasmeen Ward MD Unavailable [email or web address] Meghna Parson MD Primary Care Provi vipin Madalyn Rogers MD Primary Care Provide r Meghna Parson MD Primary Care Provi vipin Macho Vincent DO Unavailable [phone] Camila Nayak WAREHOUSE ORDER PULLER Unavailable [phone] Mile Reynolds CUP SETTER LOCKSTITCH Unavailable Marian Alicia MD Primary Care Provider [phone] Reason for Referral * Physical Therapy (Routine) - Closed Specialty Diagnoses / Procedures Referred By Thompson t Referred To Contact Physical Therapy Diagnoses SI (sacroiliac) pain Meghna Parson MD Phone: tel: mailto:[email or web address] [address] [place] [address] Phone: tel: Referral ID Status Reason Start Date Expiration Date Visits Re quested Visits Authorized [id number] Closed 01/27/2019 01/28/2020 1 1 Encounter Details Date Type Department Care Team (Latest Contact Info) Description 01/27/2019 Transcribe Orders [facility] [address] [place] [address] Meghna Parson MD [address] [place] [address] [email or web address] SI (sacroiliac) pain (Primary Dx) Social History Tobacco Use Types [...] Associated Diagnoses Order Schedule Ambulatory referral to [facility] Physical Therapy Outpatient Referral Routine SI (sacroiliac) pain Ordered: 01/27/2019 documented as of this encounter Visit Diagnoses Diagnosis SI (sacroiliac) pain- Primary Disorders of sacrum documented in this encounter Additional Health Concerns Infection Onset Date Last Indicated Resolved Time CoV-Exposed Comment:Recent close contact documented in the COVID-19 PCR/PRO order 09/25/2021 10/03/2021 10/10/2021 1:[address] CoV-Presumed 10/09/2022 10/09/2022 10/30/2022 1:21 AM EST CoV-Risk 03/01/2023 03/01/2023 03/12/2023 1:22 AM EDT documented as of this encounter Care Teams Bowl Sander Relationship Specialty Start Date End Date Meghna Parson MD [email or web address] PCP - General Internal Medicine 08/19/17 11/29/19 Madalyn Rogers MD [address] [place] [address] PCP - General 11/30/19 12/30/20 Meghna Parson MD [email or web address] PCP - General Internal Medicine 12/31/20 01/04/22 Marian Alicia MD [address] [place] [address] [email or web address] PCP - General Family Medicine 01/05/22 Demond Roger MD [address] [place] [address] [email or web address] Historical LMR Provider 02/24/15 10/21/21 Tianna Coello MD [address] [place] [address] [email or web address] Historical LMR Provider 02/24/15 10/21/21 Yasmeen Ward MD [email or web address] Historical LMR Provider 02/24/1510/21 Macho Vincent DO [address] [place] [address] [email or web address] Primary Oncologist Hematology and Oncology 09/13/21 Camila Nayak FNP [address] [place] [address] [email or web address] Nurse Practitioner Medical Oncology 11/03/21 Mile Reynolds CNP [address] [place] [address] [email or web address] Nurse Practitioner Medical Oncology 11/03/21 documented as of this encounter Additional Source Comments The information contained in this document represents components of the legal health record. It is not the complete legal health record.[facility]
--- OUTSIDE RECORDS SUMMARY | 2025-06-22 07:46 | XMS_ITS | Encounter Summary ---
Author Organization [facility] Address [address] [facility] [address] [place] [address] Phone Care Team Providers Care Health And Physical Education Professor Name Role Phone Demond Roger MD Unavailable [phone] FeltmateTianna MD Unavailable [phone] Yasmeen Ward MD Unavailable [email or web address] Meghna Parson MD Primary Care Provi vipin CarltonMacho gary W DO Unavailable [phone] Camila Nayak PRODUCTION ILLUSTRATOR Unavailable Mile Reynolds HOSPICE HOME CARE COORDINATOR Unavailable Marian Alicia MD Primary Care Provider [phone] Encounter Details Date Type Department Care Team (Late st Contact Info) Description 08/28/2021 Procedure Pass [facility], [facility] [address] [place], [place] [phone] Social History Tobacco Use Types Packs/Day Years [...] documented as of this encounter Care Teams Health And Physical Education Professor Relationship Specialty Start Date End Date Meghna Parson MD [email or web address] PCP - General Internal Medicine 12/31/20 01/04/22 Marian Alicia MD [address] [place] [address] 7 [place] [address] [email or web address] PCP - General Family Medicine 01/05/22 Demond Roger MD [address] [place] [address] [email or web address] Historical LMR Provider 02/24/15 10/21/21 Tianna Coello MD [address] [place] [address] [email or web address] Historical LMR Provider 02/24/15 10/21/21 Yasmeen Ward MD [email or web address] Historical LMR Provider 02/24/1510/21 Macho Vincent DO [address] [place] [address] [email or web address] Primary Oncologist Hematology and Oncology 09/13/21 Camila Nayak FNP [address] [place] [address] [email or web address] Nurse Practitioner Medical Oncology 11/03/21 Mile Reynolds CNP [address] [place] [address] [email or web address] Nurse Practitioner Medical Oncology 11/03/21 documented as of this encounter Additional Source Comments The information contained in this document represents components of the legal health record. It is not the complete legal health record.[facility]
--- OUTSIDE RECORDS SUMMARY | 2025-06-22 07:46 | XMS_ITS | Encounter Summary ---
Author Organization [facility] Address [address] [place] [address] Phone Care Team Providers Care Medical Service Technician Name Role Phone Demond Roger MD Unavailable [phone] FeltTianna ng MD Unavailable [phone] Yasmeen Ward MD Unavailable [email or web address] Meghna Parson MD Primary Care Provi vipin Madalyn Rogers MD Primary Care Provide r Meghna Parson MD Primary Care Provi vipin Macho Vincent DO Unavailable Camila Nayak DEVELOPMENTAL THERAPIST Unavailable Mile Reynolds 1ST PRESSMAN [employer] Unavailable Marian Alicia MD Primary Care Provider [phone] Encounter Details Date Type Department Care Team (Late st Contact Info) Description 07/31/2018 Ancillary Orders Virtual Department [address] [place] [address] Meghna Parson MD [address] [place], [place] [id number] [email or web address] Breast screening Social History Tobacco Use Types [...] MAMMOGRAM SCREENING WITH TOMOSYNTHESIS WITH CAD (BILATERAL) (09/05/2018 7:54 AM EST) Anatomical Region Laterality Modality Breast Left, Breast Right, Breast Bilateral Bila teral Mammography 09/05/2018 9:25 AM EST Impressions 09/05/2018 9:29 AM EST No mammographic signs of malignancy. Annual screening is recommended. BI-RADS CATEGORY: 1 - Negative. DENSITY: There are scattered fibroglandular densities. POS - [id number] Narrative 09/05/2018 9:29 AM EST Bilateral mammography is performed in conjunction with computed aided detection. 3-D tomography along with 2-D C view imaging was also performed. Comparison made to previous dated as far back as 08/21/2013 and as recent as 09/06/2017. Patient is reportedly status-post left breast biopsy. No suspicious masses, areas of architectural distortion or suspicious microcalcifications. Procedure Note Chema Shoemaker MD - 09/05/2018 Bilateral mammography is performed in conjunction with computed aideddetection. 3-D tomography along with 2-D C view imaging was alsoperformed. Comparison made to previous dated as far back as 08/21/2013 andas recent as 09/06/2017. Patient is reportedly status-post left breast biopsy. No suspicious masses, areas of architectural distortion or suspiciousmicrocalcifications. IMPRESSION: No mammographic signs of malignancy. Annual screening is recommended. BI-RADS CATEGORY: 1 - Negative. DENSITY: There are scattered fibroglandular densities. POS - [id number] Meghna Parson MD IMG MG EXAMS Fin [...] documented as of this encounter Care Teams Medical Service Technician Relationship Specialty Start Date End Date Meghna Parson MD [email or web address] PCP - General Internal Medicine 08/19/17 11/29/19 Madalyn Rogers MD [address] [place] [address] PCP - General 11/30/19 12/30/20 Meghna Parson MD [email or web address] PCP - General Internal Medicine 12/31/20 01/04/22 Marian Alicia MD [address] [place] [address], [address] [place] [address] PCP - General Family Medicine 01/05/22 Demond Roger MD [address] [place] [address] [email or web address] LMR Provider 02/24/15 10/21/21 Tianna Coello MD [address] [place] [address] [email or web address] Historical LMR Provider 02/24/15 10/21/21 Yasmeen Ward MD [email or web address] Historical LMR Provider 02/24/1510/21 aMcho Vincent DO [address] [place] [address] [email or web address] Primary Oncologist Hematology and Oncology 09/13/21 Camila Nayak FNP [address] [place] [address] [email or web address] Nurse Practitioner Medical Oncology 11/03/21 Mile Reynolds CNP [address] [place] [address] [email or web address] Nurse Practitioner Medical Oncology 11/03/21 documented as of this encounter Additional Source Comments The information contained in this document represents components of the legal health record. It is not the complete legal health record.[facility]
--- OUTSIDE RECORDS SUMMARY | 2025-06-22 07:46 | XMS_ITS | Clinical Summary ---
Author Organization [facility], Address [address] [place] [address] Phone Care Team Providers Care Laser Set Up Operator Name Role Phone Aretha Bain NP Primary Care Provider [phone] Allergies Active Allergy Reactions Criticality Noted Date Comments Amoxicillin Rash Low 08/26/2023 Ciprofloxacin Rash Low 02/07/2017 Fluconazole Rash Low 10/18/2021 Lorazepam 10/18/2021 Other reaction(s): agitation Other reaction(s): agitation Nitrofurantoin Anaphylaxis High 07/25/2004 Other reaction(s): Rash Oxycodone-Acetaminophen GI intolerance 07/25/20 04 Quetiapine 10/18/2021 Other reaction(s): loss of appetite Other reaction(s): loss of appetite Quinolones Itching,Rash Low 07/25/2004 Risperidone 08/26/2023 Other reaction(s): rash Sulfa Antibiotics Anaphylaxis High 07/25/2004 Sulfamethoxazole-Trimethopr im 02/07/2017 Medications buPROPion XL (WELLBUTRIN XL) 300 MG 24 hr tablet 08/21/2023 Active clonazePAM (KlonoPIN) 1 MG tablet 08/22/2023 Active cloNIDine (CATAPRES) 0.1 MG tablet Take 0.1 mg by mouth 06/20/2023 Active lamoTRIgine (LaMICtal) 100 MG tablet TAKE 2 & 1/2 TABLETS BY MOUTH ONCE DAILY 08/16/2023 Active risperiDONE (RisperDAL) 1 MG tablet Take 1 mg by mouth 08/09/2023 Active venlafaxine XR (EFFEXOR-XR) 150 MG 24 hr capsule Take 300 mg by mouth 1 (one) time each day 06/19/2023 Active warfarin (COUMADIN) 5 MG tablet Take 5 mg by mouth 06/19/2023 Active torsemide (DEMADEX) 20 MG tablet TAKE 1 TABLET BY MOUTH EVERY DAY 90 tablet 3 11/12/2024 Active losartan (Cozaar) 100 MG tablet Take 1 tablet (100 mg total) by mouth 1 (one) time each day 30 tablet 11 04/12/2025 Active Active Problems Problem Noted Date Diagnosed Date Hypertension 10/18/2021 08/26/2023 Overview (08/26/2023): Last Assessment & Plan: Well-controlled, off lisinopril. Encounters Date Type Department Care Team Description 04/12/2025 4:00 PM EDT Office Visit [facility] [address] [place] [address] Jamison Avila MD Hypertensive heart and chronic kidney disease without heart failure, with stage 1 through stage 4 chronic kidney disease, or unspecified chronic kidney disease (Primary Dx); Stage 3a chronic kidney disease (HCC) from Last 3 Months Immunizations Immunization Administration Dates Next Due DT 06/28/1998 Influenza, MDCK, PF, Quadrivalent 07/20/2017 Influenza, Quadrivalent, Pre servative Free 07/25/2023,08/13/2022,06/29/2021,08/02,08/11/2018 Influenza, Unspecified 06/25/2010 Pfizer SARS-COV-2 12/14/2020,11/23/2020 Pneumococcal Polysaccharide 05/25/2008, 8 Pneumococcal, Unspecified 05/05/2008 Social History Tobacco Use Types Packs/Day Years Used Date Smoking Tobacco: Never Assessed Comments Unknown Sex and Gender Information Value Date Recorded Sex Assigned at Not on file Legal Sex Female 1:59 PM EDT Gender Identity Not on file Sexual Orientation Not on file Plan of Treatment Upcoming Encounters Date Type Department Care Team (Late st Contact Info) Description 09/29/2025 4:15 PM EST [facility] [address] [place] [phone] Jamison Avila MD [address] [place] [phone] Health Maintenance Due Date Last Done Comments Breast Cancer Screening 1965 Hepatitis B Vaccine (1 of 3 - 19+ 3-dose series) 1985 Pneumococcal Vaccine: 50+ Ye ars (3 of 3 - PCV) 05/25/2009 05/25/2008, 05/05/2008, 05/05/2008 Colorectal Cancer Screening: Annual FOBT 2015 Colorectal Cancer Screening: Colonoscopy 2015 Colorectal Cancer Screening: Sigmoidoscopy 2015 Influenza Vaccine (#1) 2025 , 08/13/2022, 06/29/2021, Additional history exists Pneumococcal Vaccine: Peds ( 0 to 5 Years) and At-Risk Patients (6 to 49 Years) Discontinued 05/25/2008, 05/05/2008, 05/05/2008 Insurance Medicaid [place] [facility] Care Teams Laser Set Up Operator Relationship Specialty Start Date End Date Aretha Bain NP [address] [facility] [address] [place] [address] PCP - General Nurse Practitioner 04/12/25
--- OUTSIDE RECORDS SUMMARY | 2025-06-22 07:46 | XMS_ITS | Encounter Summary ---
Author Organization [facility] Address [address] [place] [address] Phone Care Team Providers Care Carbonator Name Role Phone Demond Roger MD Unavailable [phone] FeltTianna ng MD Unavailable [phone] Yasmeen Ward MD Unavailable [email or web address] Meghna Parson MD Primary Care Provi vipin Madalyn Rogers MD Primary Care Provide r Meghna Parson MD Primary Care Provi vipin Macho Vincent DO Unavailable Camila Nayak HAND LASTER Unavailable [phone] BLOOD BANK ATTENDANT Unavailable Marian Alicia MD Primary Care Provider [phone] Encounter Details Date Type Department Care Team (Late st Contact Info) Description 04/24/2018 Transcribe Orders [facility] [address] [place] [address] Meghna Parson MD [address] [place], [place] [phone] [email or web address] Screening for tuberculosis (Primary Dx) Social History Tobacco Use Types [...] documented as of this encounter Results * Quantiferon-TB Gold (04/24/2018 4:17 PM EDT) [facility] QuantiFERON-TB Gold Negative Negative [facility] Comment: (NOTE) No interferon-gamma response to M. tuberculosis antigens was detected. Infection with M. tuberculosis is unlikely. A single negative result does not exclude infection with M. tuberculosis. In patients at high risk for M.tuberculosis infection, a second test should be considered in accordance with the 2017 ATS/IDSA/CDC Clinical Practice Guidelines for Diagnosis of Tuberculosis in Adults and Children [Lewinsohn DM et. al. Clin. Infect. Dis. 2017;64(2):111-115]. TB1 Ag minus Nil 0.01 IU/mL [facility] HODGE TB2 Ag minus Nil 0.01 IU/mL [facility] Mitogen minus Nil >10.00 IU/mL [facility] HOGDE Nil Result 0.01 IU/mL [facility] HODGE Blood 04/24/2018 4:17 PM EDT 04/24/2018 4:18 PM EDT us Meghna Parson MD LAB BLOOD ORDERABLE S Final Result [facility] [address] [place] [address] documented in this encounter Visit Diagnoses Diagnosis Screening for tuberculosis- Primary Screening examination for pulmonary tuberculosis documented in this encounter Additional Health Concerns Infection Onset Date Last Indicated Resolved Time CoV-Exposed Comment:Recent close contact documented in the COVID-19 PCR/PRO order 09/25/2021 10/03/2021 10/10/2021 1:[address] CoV-Presumed 10/09/2022 10/09/2022 10/30/2022 1:21 AM EST CoV-Risk 03/01/2023 03/01/2023 03/12/2023 1:22 AM EDT documented as of this encounter Care Teams Carbonator Relationship Specialty Start Date End Date Meghna Parson MD PCP - General Internal Medicine 08/19/17 11/29/19 Madalyn Rogers MD [address] [place] [address] PCP - General 11/30/19 12/30/20 Meghna Parson MD PCP - General Internal Medicine 12/31/20 01/04/22 Marian Alicia MD [address] [place] [address] 7 [place] [address] [email or web address] PCP - General Family Medicine 01/05/22 Demond Roger MD [address] [place] [address] [email or web address] Historical LMR Provider 02/24/15 10/21/21 Tianna Coello MD [address] [place] [address] [email or web address] Historical LMR Provider 02/24/15 10/21/21 Yasmeen Ward MD [email or web address] Historical LMR Provider 02/24/1510/21 Macho Vincent DO [address] [place] [address] [email or web address] Primary Oncologist Hematology and Oncology 09/13/21 Camila Nayak FNP [address] [place] [address] [email or web address] Nurse Practitioner Medical Oncology 11/03/21 Mile Reynolds CNP [address] [place] [address] [email or web address] Nurse Practitioner Medical Oncology 11/03/21 documented as of this encounter Additional Source Comments The information contained in this document represents components of the legal health record. It is not the complete legal health record.[facility]
--- OUTSIDE RECORDS SUMMARY | 2025-06-22 07:46 | XMS_ITS | Encounter Summary ---
Author Organization [facility] Address [address] [facility] [address] [place] [address] Phone Care Team Providers Care Fluorescent Lamp Replacer Name Role Phone Demond Roger MD Unavailable [phone] FeltTianna ng MD Unavailable [phone] Yasmeen Ward MD Unavailable [email or web address] Meghna Parson MD Primary Care Provi vipin Madalyn Rogers MD Primary Care Provide r Meghna Parson MD Primary Care Provi vipin Macho Vincent DO Unavailable [phone] Camila Nayak PRECISION DEVICES INSPECTOR/TESTER Unavailable Mile Reynolds FARMWORKER FUR Unavailable Marian Alicia MD Primary Care Provider [phone] Encounter Details Date Type Department Care Team (Late st Contact Info) Description 03/05/2018 Ancillary Orders Virtual Department [address] [place] [address] London Obregon MD [address] [facility] [address] [place] [address] [email or web address] Dyspnea, unspecified type; Hypoxemia; Cough; Wheeze; Pulmonary HTN Social History Tobacco Use Types Packs/Day Years [...] documented as of this encounter Results * TTE COMPREHENSIVE (03/06/2018 8:45 AM EDT) Body Surface Area 2.1 m2 Height 160 m Weight 110 kg Systolic BP 109 mmHg Diastolic BP 58 mmHg Left Atrium Dimension Anterior-Posterior 34 15 - 40 mm Aortic Valve Mean Gradient 5.00 mmHg Aortic Valve Time Velocity Integral 304.00 mm Aortic Valve Peak Velocity 1,480.00 mm/s Aortic Valve Peak Gradient 9.00 mmHg Aortic Sinus Diameter 29 mm Ascending Aorta Diameter 26 mm Inferior Vena Cava Diameter 20 0.0 - 21 mm Interventricular Septum Thickness 9 mm Left Ventricle Internal Diameter End Diastole 49 37 - 52 mm Left Ventricle Internal Diameter End Systole 33 22 - 35 mm Left Ventricular Outflow Tract Diameter 19.00 mm LVOT VTI REST 190.00 mm Left Ventricular Outflow Tract Velocity 916.00 mm/s Left Ventricular Outflow Tract Gradient at Rest 3.00 mmHg Left Ventricular Posterior Wall Thickness 9 mm Ejection Fraction 63 50 - 75 Percent Mitral Valve Deceleration Time 193.00 ms Mitral Valve A Wave Speed 815.00 mm/s Mitral Valve E Wave Speed 990.00 mm/s Right Ventricle Basal Diameter 34.80 25 - 41 mm Tricuspid Valve Peak Velocity 2.51 mm/s Raw LV EF% 55 % Aortic Valve Sinus Index 1 14 20 - 32 mm Ascending Aorta Diameter 12 mm Aortic Sinus Index 14 mm Ascending Aorta Index 12 mm Mitral Valve Ea Septal Wave Speed 7.0 cm/s Mitral Valve Ea Lateral Wave Speed 10.3 cm/s Anatomical Region Laterality Modality Heart Ultrasound Narrative 03/06/2018 12:43 PM EDT Left ventricular systolic function is normal. There are no segmental left ventricular wall motion abnormalities noted. The estimated ejection fraction is 63% (Normal 50-75%). There is trace mitral regurgitation The RVSP is calculated at 28 mmHg. Normal pulmonary pressures No prior studies for comparison Left Ventricle The left ventricular cavity size and wall thickness are normal. Left ventricular systolic function is normal. There are no segmental left ventricular wall motion abnormalities noted. The estimated ejection fraction is 63% (Normal 50-75%). The left ventricular ejection fraction was measured by visual estimate. Left ventricular diastolic function appears within normal limits for age. Right Ventricle The right ventricular size is normal. Left Atrium The left atrium is normal in size. LA VolBPIn 23 ml/m2 The left atrial anterior-posterior dimension measures 34 mm (normal 15-40 mm). The pulmonary venous flow profiles are normal. Pulmonary vein connections were not well seen. Right Atrium The right atrium is normal in size. The IVC is normal in size (2.1cm or less). The IVC measures 20 mm (normal <=21 mm). The IVC demonstrates normal collapse with inspiration which is consistent with normal RA pressure. Mitral Valve The mitral valve appears normal. MV E/A 1.2 Leaflet thickness is normal. There is trace mitral regurgitation detected by spectral and color Doppler. Tricuspid Valve The tricuspid valve appears normal. TR pkVel 2.51 m/s. TR pkPG 25 mm Hg. Assuming RAP of 3 mmHg. The RVSP is calculated at 28 mmHg. Normal pulmonary pressures. There is evidence of trace to mild tricuspid regurgitation by color and spectral Doppler. Aortic Valve There is no evidence of aortic regurgitation by color and spectral Doppler. The visualized portions of the thoracic aorta appear normal. Interatrial Septum The interatrial septum appears normal. Interventricular Septum Interventricular septal motion appears normal. General Findings The image quality was good (2). Comparison Findings No prior studies for comparison. us London Obregon MD CV ECHO ORDERABLES Final Result documented in this encounter Visit Diagnoses Diagnosis Dyspnea, unspecified type Hypoxemia Cough Wheeze Wheezing Pulmonary HTN Dyspnea, unspecified type Hypoxemia Cough Wheeze Wheezing Pulmonary HTN documented in this encounter Additional Health Concerns Infection Onset Date Last Indicated Resolved Time CoV-Exposed Comment:Recent close contact documented in the COVID-19 PCR/PRO order 09/25/2021 10/03/2021 10/10/2021 1:[address] CoV-Presumed 10/09/2022 10/09/2022 10/30/2022 1:21 AM EST CoV-Risk 03/01/2023 03/01/2023 03/12/2023 1:22 AM EDT documented as of this encounter Care Teams Fluorescent Lamp Replacer Relationship Specialty Start Date End Date Meghna Parson MD [email or web address] PCP - General Internal Medicine 08/19/17 11/29/19 Madalyn Rogers MD [address] [place] [address] PCP - General 11/30/19 12/30/20 Meghna Parson MD [email or web address] PCP - General Internal Medicine 12/31/20 01/04/22 Marian Alicia MD [address] [place] [address], [facility] 7 [place] [address] [email or web address] PCP - General Family Medicine 01/05/22 Demond Roger MD [address] [place] [address] [email or web address] Historical LMR Provider 02/24/15 10/21/21 Tianna Coello MD [address] [place] [address] [email or web address] Historical LMR Provider 02/24/15 10/21/21 Yasmeen Ward MD [email or web address] Historical LMR Provider 02/24/1510/21 Macho Vincent DO [address] [place] [address] [email or web address] Primary Oncologist Hematology and Oncology 09/13/21 Camila Nayak FNP [address] [place] [address] [email or web address] Nurse Practitioner Medical Oncology 11/03/21 Mile Reynolds CNP [address] [place] [address] [email or web address] Nurse Practitioner Medical Oncology 11/03/21 documented as of this encounter Additional Source Comments The information contained in this document represents components of the legal health record. It is not the complete legal health record.[facility]
--- OUTSIDE RECORDS SUMMARY | 2025-06-22 07:46 | XMS_ITS | Encounter Summary ---
Author Organization [facility] Address [address] [facility] [address] [place] [address] Phone Care Team Providers Care Propeller Tester Name Role Phone Demond Roger MD Unavailable [phone] FeltTianna ng MD Unavailable [phone] Yasmeen Ward MD Unavailable [email or web address] Meghna Parson MD Primary Care Provi vipin Madalyn Rogers MD Primary Care Provide r Meghna Parson MD Primary Care Provi vipin Macho Vincent DO Unavailable [phone] Camila Nayak CHILLING HOOD OPERATOR Unavailable [phone] PAPER SEALER Unavailable Marian Alicia MD Primary Care Provider [phone] Encounter Details Date Type Department Care Team (Late st Contact Info) Description 12/10/2018 Ancillary Orders [facility], X-Ray - [address] [address] Meghna Parson MD [address] [place], [place] [id number] [email or web address] Social History Tobacco Use Types Packs/Day [...] joints. Facet arthritic changes notable L3 through [id number]. IMPRESSION: No evidence for acute fracture. Degenerative [...] joints. Facet arthritic changes notable L3 through [id number]. IMPRESSION: No evidence for acute fracture. Degenerative [...] documented as of this encounter Care Teams Propeller Tester Relationship Specialty Start Date End Date Meghna Parson MD [email or web address] PCP - General Internal Medicine 08/19/17 11/29/19 Madalyn Rogers MD [address] [place] [address] PCP - General 11/30/19 12/30/20 Meghna Parson MD [email or web address] PCP - General Internal Medicine 12/31/20 01/04/22 Marian Alicia MD [address] [place] [address], [address] [place] [address] [email or web address] PCP - General Family Medicine 01/05/22 Demond Roger MD [address] [place] [address] [email or web address] Historical LMR Provider 02/24/15 10/21/21 Tianna Coello MD [address] [place] [address] [email or web address] Historical LMR Provider 02/24/15 10/21/21 Yasmeen Ward MD [email or web address] Historical LMR Provider 02/24/1510/21 Macho Vincent DO [address] [place] [address] [email or web address] Primary Oncologist Hematology and Oncology 09/13/21 Camila Nayak FNP [address] [place] [address] [email or web address] Nurse Practitioner Medical Oncology 11/03/21 Mile Reynolds CNP [address] [place] [address] [email or web address] Nurse Practitioner Medical Oncology 11/03/21 documented as of this encounter Additional Source Comments The information contained in this document represents components of the legal health record. It is not the complete legal health record.[facility]
--- OUTSIDE RECORDS SUMMARY | 2025-06-22 07:46 | XMS_ITS | Encounter Summary ---
Author Organization [facility] Address [address] [facility] [address] [place] [address] Phone Care Team Providers Care Category Consultant Name Role Phone Demond Roger MD Unavailable [phone] FeltTianna ng MD Unavailable [phone] Yasmeen Ward MD Unavailable [email or web address] Meghna Parson MD Primary Care Provi vipin Madalyn Rogers MD Primary Care Provide r Meghna Parson MD Primary Care Provi vipin Macho Vincent DO Unavailable Camila Nayak RESIDENTIAL MORTGAGE MANAGER Unavailable [phone] TENTER FRAME BACK TENDER Unavailable Marian Alicia MD Primary Care Provider [phone] Encounter Details Date Type Department Care Team (Latest Contact Info) Description 05/29/2018 Transcribe Orders [facility] Specimen Processing [address] [place] [address] London Obregon MD [address] [facility] [address] [place], [place] [id number] [email or web address] Urinary tract infection without hematuria, site unspecified [...] documented as of this encounter Results * Urine culture (05/29/2018 4:37 PM EDT) Specimen Source/ Description URINE URINE URINE [facility] Special Requests None [facility] GRAM STAIN NO ORGANISMS SEEN [facility] Culture/Test 10,000 to 100,000 colony forming units per ml MIXED HAYLEE (3 OR MORE COLONY TYPES) Culture indicates contamination . Please resubmit if necessary. [facility] Report Status 05/31/2018 FINAL [facility] Urine (Urine) 05/29/2018 4:3 7 PM EDT 05/29/2018 4:39 PM EDT London Obregon MD MICROBIOLOGY - GENERAL ORDERABL ES Final Result [address] [address] * (ABNORMAL) Urinalysis (05/29/2018 4:37 PM EDT) COLOR STRAW(A) Yellow [facility] CLARITY Clear [facility] GLUCOSE Negative Negative [facility] BILI Negative Negative [facility] KETONES Negative Negative [facility] SPECIFIC GRAVITY <1.005 1.005 - 1.030 [facility] BLOOD Negative Negative [facility] PH 5.5 5.0 - 8.0 [facility] Protein-UA Negative Negative [facility] NITRITE Negative Negative [facility] Leukocyte esterase, ur Negative Negative [facility] Urine (Urine) 05/29/2018 4:3 7 PM EDT 05/29/2018 4:39 PM EDT London Obregon MD URINE ORDERABLES Final Result Performing Organization Address City/State/[facility] Co de Phone Number [facility] [address] [place] [address] documented in this encounter Visit Diagnoses Diagnosis [...] documented as of this encounter Care Teams Category Consultant Relationship Specialty Start Date End Date Meghna Parson MD [email or web address] PCP - General Internal Medicine 08/19/17 11/29/19 Madalyn Rogers MD [address] [place] [address] PCP - General 11/30/19 12/30/20 Meghna Parson MD [email or web address] PCP - General Internal Medicine 12/31/20 01/04/22 Marian Alicia MD [address] [place] [address] 7 [place] [address] PCP - General Family Medicine 01/05/22 Demond Roger MD [address] [place] [address] [email or web address] Historical LMR Provider 02/24/15 10/21/21 Tianna Coello MD [address] [place] [address] [email or web address] Historical LMR Provider 02/24/15 10/21/21 Yasmeen Ward MD [email or web address] Historical LMR Provider 02/24/1510/21 Macho Vincent DO [address] [place] [address] [email or web address] Primary Oncologist Hematology and Oncology 09/13/21 Camila Nayak FNP [address] [place] [address] Nurse Practitioner Medical Oncology 11/03/21 Mile Reynolds CNP [address] [place] [address] [email or web address] Nurse Practitioner Medical Oncology 11/03/21 documented as of this encounter Additional Source Comments The information contained in this document represents components of the legal health record. It is not the complete legal health record.[facility]
--- OUTSIDE RECORDS SUMMARY | 2025-06-22 07:47 | XMS_ITS | Encounter Summary ---
Author Organization [facility] Address [address] [facility] [address] [place] [address] Phone Care Team Providers Care Master Fire Control Technician Name Role Phone Dell Chiang MD Primary Care Provider [phone] Demond Roger MD Unavailable [phone] FeltTianna ng MD Unavailable [phone] Yasmeen Ward MD Unavailable [email or web address] Meghna Parson MD Primary Care Provi vipin Madalyn Rogers MD Primary Care Provide r Meghna Parson MD Primary Care Provi vipin Macho Vincent W DO Unavailable Camila Nayak SPACE OFFICER Unavailable [address] Reynolds QA AUDITOR Unavailable Marian Alicia MD Primary Care Provider [phone] Encounter Details Date Type Department Care Team (Late st Contact Info) Description 08/03/2017 Ancillary Orders [facility], X-Ray - [address] [address] Meghna Parson MD 6 [place] [address] Breast screening Social History Tobacco Use Types Packs/Day Years Used Date Smoking Tobacco: Never Comments Unknown Sex and Gender Information Value Date Recorded Sex Assigned at Female 01/19/2022 5:34 PM EDT Legal Sex Female 7:45 PM EST Gender Identity Female 01/19/2022 5:34 PM EDT Sexual Orientation Not on file documented as of this encounter Plan of Treatment Not on file documented as of this encounter Results * BI MAMMOGRAM SCREENING WITH TOMOSYNTHESIS WITH CAD (BILATERAL) (09/06/2017 8:23 AM EST) Anatomical Region Laterality Modality Breast Left, Breast Right, Breast Bilateral Bila teral Mammography 09/06/2017 8:49 AM EST Impressions 09/06/2017 8:52 AM EST No mammographic evidence of malignancy. BI-RADS CATEGORY: 1 - Negative. DENSITY: There are scattered fibroglandular densities. POS - [id number] Narrative 09/06/2017 8:52 AM EST Standard digital full-field 2-D C view and two-plane tomographic imaging was performed and compared with multiple prior studies, most recently 08/06/2016, with utilization of computer-aided detection. The breasts are composed of scattered fibroglandular densities. The stromal markings are essentially unchanged in overall appearance and distribution. No dominant spiculated mass, suspicious clustered microcalcifications, or focal zone of pathologic skin thickening or retraction are noted to have arisen in the interim. Procedure Note Uzair Joe MD - 09/06/2017 Standard digital full-field 2-D C view and two-plane tomographic imagingwas performed and compared with multiple prior studies, most geianrwk61/24/2016, with utilization of computer-aided detection. The breasts are composed of scattered fibroglandular densities. Thestromal markings are essentially unchanged in overall appearance anddistribution. No dominant spiculated mass, suspicious clusteredmicrocalcifications, or focal zone of pathologic skin thickening orretraction are noted to have arisen in the interim. IMPRESSION: No mammographic evidence of malignancy. BI-RADS CATEGORY: 1 - Negative. DENSITY: There are scattered fibroglandular densities. POS - [id number] Meghna Parson MD IMG MG EXAMS Fin [...] documented as of this encounter Care Teams Master Fire Control Technician Relationship Specialty Start Date End Date Dell Chiang MD [address] [facility] [address] [place] [address] PCP - General 02/18/15 08/18/17 Meghna Parson MD [email or web address] PCP - General Internal Medicine 08/19/17 11/29/19 Madalyn Rogers MD [address] [place] [address] PCP - General 11/30/19 12/30/20 Meghna Parson MD [email or web address] PCP - General Internal Medicine 12/31/20 01/04/22 Marian Alicia MD [address] [place] [address] 7 [place] [address] [email or web address] PCP - General Family Medicine 01/05/22 Demond Roger MD [address] [place] [address] [email or web address] Historical LMR Provider 02/24/15 10/21/21 Tianna Coello MD [address] [place] [address] [email or web address] Historical LMR Provider 02/24/15 10/21/21 Yasmeen Ward MD [email or web address] Historical LMR Provider 02/24/1510/21 Macho Vincent DO [address] [place] [address] [email or web address] Primary Oncologist Hematology and Oncology 09/13/21 Camila Nayak FNP [address] [place] [address] [email or web address] Nurse Practitioner Medical Oncology 11/03/21 Mile Reynolds CNP [address] [place] [address] [email or web address] Nurse Practitioner Medical Oncology 11/03/21 documented as of this encounter Additional Source Comments The information contained in this document represents components of the legal health record. It is not the complete legal health record.[facility]
--- OUTSIDE RECORDS SUMMARY | 2025-06-22 07:47 | XMS_ITS | Encounter Summary ---
Author Organization [facility] Address [address] [address] Phone Care Team Providers Care Flotation Tender Name Role Phone Meghna Parson MD Primary Care Provi vipin Macho Vincent W DO Unavailable [phone] Camila Nayak AGRICULTURAL ECONOMIST Unavailable [phone] HEEL CEMENTER Unavailable Marian Alicia MD Primary Care Provider [phone] Encounter Details Date Type Department Care Team (Late st Contact Info) Description 11/07/2021 Ancillary Orders [facility],Outside Imaging [address] [place], [place] [id number] System, Provider Not In, [place] [address] Social History Tobacco Use Types Packs/Day Years [...] documented as of this encounter Results * US Chest Outside (No Interpretation) (08/14/2021 12:05 AM EDT) Narrative SYSTEMGENERATED, DOCUMENTATION - 11/07/2021 11:17 AM EST This study is for PACS storage only and not for interpretation. us Provider Not In System PhD IMG OUTSIDE IMAGING W /OUT INTERPRETATION Final Result documented in this encounter Visit Diagnoses Not on filedocumented in this encounter Additional Health Concerns Infection Onset Date Last Indicated Resolved Time CoV-Presumed 10/09/2022 10/09/2022 10/30/2022 1:21 AM EST CoV-Risk 03/01/2023 03/01/2023 03/12/2023 1:22 AM EDT documented as of this encounter Care Teams Flotation Tender Relationship Specialty Start Date End Date Meghna Parson MD [email or web address] PCP - General Internal Medicine 12/31/20 01/04/22 Marian Alicia MD [address] [place] [address], [address] [place] [address] [email or web address] PCP - General Family Medicine 01/05/22 Macho Vincent DO [address] [place] [address] [email or web address] Primary Oncologist Hematology and Oncology 09/13/21 Camila Nayak FNP [address] [place] [address] [email or web address] Nurse Practitioner Medical Oncology 11/03/21 Mile Reynolds CNP [address] [place] [address] Nurse Practitioner Medical Oncology 11/03/21 documented as of this encounter Additional Source Comments The information contained in this document represents components of the legal health record. It is not the complete legal health record.[facility]
--- OUTSIDE RECORDS SUMMARY | 2025-06-22 07:47 | XMS_ITS | Encounter Summary ---
Author Organization [facility] Address [address] [facility] [address] [place] [address] Phone Care Team Providers Care Scrap Metal Processing Worker Name Role Phone Demond Roger MD Unavailable [phone] FeltmateTianna MD Unavailable [phone] Yasmeen Ward MD Unavailable [email or web address] Meghna Parson MD Primary Care Provi vipin CarltonMacho gary W DO Unavailable Camila Nayak CASH MANAGEMENT OFFICER Unavailable [phone] ENVIRONMENTAL EMERGENCIES ASSISTANT Unavailable Marian Alicia MD Primary Care Provider [phone] Encounter Details Date Type Department Care Team (Late st Contact Info) Description 05/18/2021 Ancillary Orders Virtual Department [address] [place] [address] Meghna Parson MD [address] [place], [place] [id number] [email or web address] Pain and swelling of left lower leg; Redness Social History Tobacco Use Types Packs/Day Years [...] as of this encounter Results * US Lower Extremity Veins Duplex (Left) (05/18/2021 5:12 PM EDT) Anatomical Region Laterality Modality Hip Left, Thigh Left, Knee L eft, Leg Left, Ankle Left, Foot Left Ultrasound 05/18/2021 5:15 PM EDT Impressions 05/18/2021 5:17 PM EDT No evidence of deep venous thrombosis from the common femoral vein to the popliteal vein in the left lower extremity. There is an area of superficial thrombus near the medial ankle the area of patient indicates is pain. Narrative 05/18/2021 5:17 PM EDT Ultrasonic examination of the deep venous system of the left leg was performed from the common femoral vein into the upper calf and includes the posterior tibial vein at the ankle, and demonstrates preserved flow, compressibility, and augmentation throughout the visualized deep venous system. In the area of pain at the medial ankle there is a thrombosed superficial vein present over a length of somewhat more than 4 cm. Contralateral common femoral vein appears patent and compressible. No Little's cyst. Procedure Note Conrad Maher MD - 05/18/2021 Ultrasonic examination of the deep venous system of the left leg wasperformed from the common femoral vein into the upper calf and includesthe posterior tibial vein at the ankle, and demonstrates preserved flow,compressibility, and augmentation throughout the visualized deep venoussystem. In the area of pain at the medial ankle there is a thrombosedsuperficial vein present over a length of somewhat more than 4 cm.Contralateral common femoral vein appears patent and compressible. NoBaker's cyst. IMPRESSION: No evidence of deep venous thrombosis from the common femoral vein to thepopliteal vein in the left lower extremity. There is an area ofsuperficial thrombus near the medial ankle the area of patient indicatesis pain. Meghna Parson MD CV US VASCULAR Fin al Result documented in this encounter Visit Diagnoses Diagnosis Pain and swelling of left lower leg Redness Unspecified erythematous condition Pain and swelling of left lower leg Redness Unspecified erythematous condition documented in this encounter Additional Health Concerns Infection Onset Date Last Indicated Resolved Time CoV-Exposed Comment:Recent close contact documented in the COVID-19 PCR/PRO order 09/25/2021 10/03/2021 10/10/2021 1:[address] CoV-Presumed 10/09/2022 10/09/2022 10/30/2022 1:21 AM EST CoV-Risk 03/01/2023 03/01/2023 03/12/2023 1:22 AM EDT documented as of this encounter Care Teams Scrap Metal Processing Worker Relationship Specialty Start Date End Date Meghna Parson MD [email or web address] PCP - General Internal Medicine 12/31/20 01/04/22 Marian Alicia MD [address] [place] [address], [address] [place] [address] [email or web address] PCP - General Family Medicine 01/05/22 Demond Roger MD [address] [place] [address] [email or web address] Historical LMR Provider 02/24/15 10/21/21 Tianna Coello MD [address] [place] [address] [email or web address] Historical LMR Provider 02/24/15 10/21/21 Yasmeen Ward MD [email or web address] Historical LMR Provider 02/24/1510/21 Macho Vincent DO [address] [place] [address] [email or web address] Primary Oncologist Hematology and Oncology 09/13/21 Camila Nayak FNP [address] [place] [address] [email or web address] Nurse Practitioner Medical Oncology 11/03/21 Mile Reynolds CNP [address] [place] [address] [email or web address] Nurse Practitioner Medical Oncology 11/03/21 documented as of this encounter Additional Source Comments The information contained in this document represents components of the legal health record. It is not the complete legal health record.[facility]
--- OUTSIDE RECORDS SUMMARY | 2025-06-22 07:47 | XMS_ITS | Encounter Summary ---
Author Organization [facility] Address [address] [facility] [address] [place] [address] Phone Care Team Providers Care Research Leader Name Role Phone Demond Roger MD Unavailable [phone] FeltTianna ng MD Unavailable [phone] Yasmeen Ward MD Unavailable [email or web address] Meghna Parson MD Primary Care Provi vipin Madalyn Rogers MD Primary Care Provide r Meghna Parson MD Primary Care Provi vipin Macho Vincent DO Unavailable Camila Nayak XM1 TANK DRIVER Unavailable Mile Reynolds MASH PREPARATORY OPERATOR Unavailable Marian Alicia MD Primary Care Provider [phone] Encounter Details Date Type Department Care Team (Late st Contact Info) Description 08/23/2017 Transcribe Orders [facility] [address] [place] [address] Meghna Parson MD [address] [place], [place] [id number] [email or web address] Muscle pain (Primary Dx); Leg cramps; Polyuria Social History Tobacco Use Types Packs/Day Years Used Date Smoking Tobacco: Never Comments Unknown Sex and Gender Information Value Date Recorded Sex Assigned at Female 01/19/2022 5:34 PM EDT Legal Sex Female 7:45 PM EST Gender Identity Female 01/19/2022 5:34 PM EDT Sexual Orientation Not on file documented as of this encounter Plan of Treatment Not on file documented as of this encounter Procedures Procedure Name Priority Date/Time Associated Diagnosis Comments URINE CULTURE Routine 08/23/2017 12:32 PM EST Muscle pain Leg cramps Polyuria COMPREHENSIVE METABOLIC PANEL Routine 08/23/2017 12:32 PM EST Muscle pain Leg cramps Polyuria TSH WITH REFLEX Routine 08/23/2017 12:32 PM EST Muscle pain Leg cramps Polyuria URINALYSIS Routine 08/23/2017 12:32 PM EST Muscle pain Leg cramps Polyuria CBC AND DIFFERENTIAL Routine 08/23/2017 12:32 PM EST Muscle pain Leg cramps Polyuria PHOSPHORUS Routine 08/23/2017 12:32 PM EST Muscle pain Leg cramps Polyuria MAGNESIUM Routine 08/23/2017 12:32 PM EST Muscle pain Leg cramps Polyuria HEMOGLOBIN A1C Routine 08/23/2017 12:32 PM EST Muscle pain Leg cramps Polyuria CPK (CREATINE KINASE) Routine 08/23/2017 12:32 PM EST Muscle pain Leg cramps Polyuria documented in this encounter Results * (ABNORMAL) Phosphorus (08/23/2017 12:32 PM EST) PHOSPHORUS 2.3(L) 2.7 - 4.5 mg/dL [facility] Blood 08/23/2017 12:3 2 PM EST 08/23/2017 12:36 PM EST us Meghna Parson MD LAB BLOOD ORDERABLE S Final Result Performing Organization Address [facility]/ZIP Co de Phone Number [address] [address] * Magnesium (08/23/2017 12:32 PM EST) MAGNESIUM 1.8 1.6 - 2.6 mg/dL [facility] Blood 08/23/2017 12:3 2 PM EST 08/23/2017 12:36 PM EST us Meghna Parson MD LAB BLOOD ORDERABLE S Final Result Performing Organization Address [facility] Co de Phone Number [address] [address] * Urine culture (08/23/2017 12:32 PM EST) Specimen Source/ Description URINE CLEAN CATCH URINE URINE [facility] Special Requests None [facility] GRAM STAIN NO ORGANISMS SEEN [facility] Culture/Test 10,000 to 100,000 colony forming units per ml MIXED HAYLEE (3 OR MORE COLONY TYPES) Culture indicates contamination . Please resubmit if necessary. [facility] Report Status 08/25/2017 FINAL [facility] Urine (Urine) 08/23/2017 12: 32 PM EST 08/23/2017 12:37 PM EST Meghna Parson MD MICROBIOLOGY - GENE RAL ORDERABLES Final Result Performing Organization Address [facility] Co de Phone Number [address] [address] * (ABNORMAL) Urinalysis (08/23/2017 12:32 PM EST) COLOR STRAW(A) Yellow [facility] CLARITY Clear [facility] GLUCOSE Negative Negative [facility] BILI Negative Negative [facility] KETONES Negative Negative [facility] SPECIFIC GRAVITY <1.005 1.005 - 1.030 [facility] BLOOD Negative Negative [facility] PH 5.5 5.0 - 8.0 [facility] Protein-UA Negative Negative [facility] NITRITE Negative Negative [facility] Leukocyte esterase, ur Negative Negative [facility] Urine (Urine) 08/23/2017 12: 32 PM EST 08/23/2017 12:36 PM EST us Meghna Parson MD URINE ORDERABLES Fi nal Result Performing Organization Address City/[facility]/ZIP Co de Phone Number [address] [address] * Hemoglobin A1c (08/23/2017 12:32 PM EST) HEMOGLOBIN A1C 4.9 4.3 - 5.8 % [facility] Blood 08/23/2017 12:3 2 PM EST 08/23/2017 12:36 PM EST us Meghna Parson MD LAB BLOOD ORDERABLE S Final Result Performing Organization Address City/[facility]/ZIP Co de Phone Number [address] [address] * (ABNORMAL) CPK (creatine kinase) (08/23/2017 12:32 PM EST) CREATINE KINASE 483(H) 21 - 215 U/L [facility] Blood 08/23/2017 12:3 2 PM EST 08/23/2017 12:36 PM EST us Meghna Parson MD LAB BLOOD ORDERABLE S Final Result Performing Organization Address [facility]/ZIP Co de Phone Number [address] [address] * (ABNORMAL) CBC and differential (08/23/2017 12:32 PM EST) WBC 9.50 3.40 - 11.20 K/uL [facility] RBC 4.88(H) 3.80 - 4.80 M/uL [facility] HGB 14.6 12.0 - 15.0 g/dL [facility] HCT 43.7 36.0 - 46.0 % [facility] PLT 281 130 - 400 K/uL [facility] MCV 89.5 79.0 - 98.0 fL [facility] MCH 29.9 27.0 - 34.8 pg [facility] MCHC 33.4 31.5 - 36.0 g/dL [facility] RDW 12.8 10.8 - 14.6 % [facility] MPV 9.9 9.4 - 12.4 fl [facility] NRBC 0.00 /100 WBCs [facility] ABSOLUTE NRBC 0.00 K/uL [facility] DIFF METHOD Auto [facility] NEUTS 64.0 45.30 - 77.70 % [facility] LYMPHS 25.2 12.30 - 39.70 % [facility] MONOS 8.1 4.10 - 12.80 % [facility] EOS 1.6 0 - 7.2 % [facility] BASOS 0.4 0 - 2.80 % [facility] Granulocytes, immature (%) 0.7 0.0 - 0.9 % [facility] ABSOLUTE NEUTS 6.08 1.40 - 7.70 K/uL [facility] ABSOLUTE LYMPHS 2.39 0.60 - 3.20 K/uL [facility] ABSOLUTE MONOS 0.77(H) 0.11 - 0.59 K/uL [facility] ABSOLUTE EOS 0.15 0.01 - 0.50 K/uL [facility] ABSOLUTE BASOS 0.04 0.00 - 0.08 K/uL [facility] Granulocytes, immature 0.07(H) 0.00 - 0.05 K/uL [facility] Blood 08/23/2017 12:3 2 PM EST 08/23/2017 12:36 PM EST us Meghna Parson MD LAB BLOOD ORDERABLE S Final Result [address] [address] * TSH with reflex (08/23/2017 12:32 PM EST) TSH 1.44 0.27 - 4.20 uIU/mL [facility] Blood 08/23/2017 12:3 2 PM EST 08/23/2017 12:36 PM EST us Meghna Parson MD LAB BLOOD ORDERABLE S Edited Result - Final [facility] [address] [place] [address] * (ABNORMAL) Comprehensive metabolic panel (08/23/2017 12:32 PM EST) SODIUM 142 133 - 146 mmol/L [facility] POTASSIUM 3.7 3.3 - 5.1 mmol/L [facility] CHLORIDE 103 96 - 108 mmol/L [facility] CO2 28 21 - 35 mmol/L [facility] BUN 20(H) 6 - 19 mg/dL [facility] CREATININE 0.80 0.5 - 1.5 mg/dL [facility] GLUCOSE 67(L) 70 - 99 mg/dL [facility] ALBUMIN 4.3 3.9 - 4.8 g/dL [facility] TOTAL PROTEIN 6.5 6.5 - 8.0 g/dL [facility] CALCIUM 9.6 8.4 - 10.3 mg/dL [facility] ALKALINE PHOSPHATASE 73 39 - 117 U/L [facility] TOTAL BILIRUBIN 0.2 0 - 1.2 mg/dL [facility] AST 25 0 - 37 U/L [facility] ALT 13 0 - 40 U/L [facility] GLOBULIN 2.2 1 - 4.8 g/dL [facility] EGFR >60 >60 mL/min/1.7 3m2 [facility] Comment:Abnormal if <60. If patient is -Montenegrin, multiply the result by 1.21. ANION GAP 15 10 - 20 mmol/L [facility] Blood 08/23/2017 12:3 2 PM EST 08/23/2017 12:36 PM EST us Meghna Parson MD LAB BLOOD ORDERABLE S Final Result [facility] [address] [place] [address] documented in this encounter Visit Diagnoses Diagnosis Muscle pain- Primary Unspecified myalgia and myositis Leg cramps Cramp of limb Polyuria documented in this encounter Additional Health Concerns Infection Onset Date Last Indicated Resolved Time CoV-Exposed Comment:Recent close contact documented in the COVID-19 PCR/PRO order 09/25/2021 10/03/2021 10/10/2021 1:[address] CoV-Presumed 10/09/2022 10/09/2022 10/30/2022 1:21 AM EST CoV-Risk 03/01/2023 03/01/2023 03/12/2023 1:22 AM EDT documented as of this encounter Care Teams Research Leader Relationship Specialty Start Date End Date Meghna Parson MD [email or web address] PCP - General Internal Medicine 08/19/17 11/29/19 Madalyn Rogers MD [address] [place] [address] PCP - General 11/30/19 12/30/20 Meghna Parson MD [email or web address] PCP - General Internal Medicine 12/31/20 01/04/22 Marian Alicia MD [address] [place] [address] [address] [place] [address] [email or web address] PCP - General Family Medicine 01/05/22 Demond Roger MD [address] [place] [address] [email or web address] Historical LMR Provider 02/24/15 10/21/21 Tianna Coello MD [address] [place] [address] [email or web address] Historical LMR Provider 02/24/15 10/21/21 Yasmeen Ward MD [email or web address] Historical LMR Provider 02/24/1510/21 Macho Vincent DO [address] [place] [address] [email or web address] Primary Oncologist Hematology and Oncology 09/13/21 Camila Nayak FNP [address] [place] [address] [email or web address] Nurse Practitioner Medical Oncology 11/03/21 Mile Reynolds CNP [address] [place] [address] [email or web address] Nurse Practitioner Medical Oncology 11/03/21 documented as of this encounter Additional Source Comments The information contained in this document represents components of the legal health record. It is not the complete legal health record.[facility]
--- OUTSIDE RECORDS SUMMARY | 2025-06-22 07:47 | XMS_ITS | Encounter Summary ---
Author Organization [facility] Address [address] [facility] [address] [place] [address] Phone Care Team Providers Care Cnc Mill Programmer Name Role Phone Demond Roger MD Unavailable [phone] FeltmateTianna MD Unavailable [phone] Yasmeen Ward MD Unavailable [email or web address] Meghna Parson MD Primary Care Provi vipin CarltonMacho gary W DO Unavailable [phone] Camila Nayak SHUCKER Unavailable GailTristanen RESOURCE PROTECTION SPECIALIST Unavailable Marian Alicia MD Primary Care Provider [phone] Encounter Details Date Type Department Care Team (Late st Contact Info) Description 05/18/2021 Transcribe Orders Virtual Department [address] [place] [address] Meghna Parson MD [address] [place], [place] [phone] [email or web address] Cellulitis, unspecified cellulitis site (Primary Dx); Pain in left leg Social History Tobacco Use Types Packs/Day Years [...] as of this encounter Visit Diagnoses Diagnosis Cellulitis, unspecified cellulitis site- Primary Pain in left leg documented in this encounter Additional Health Concerns Infection Onset Date Last Indicated Resolved Time CoV-Exposed Comment:Recent close contact documented in the COVID-19 PCR/PRO order 09/25/2021 10/03/2021 10/10/2021 1:[address] CoV-Presumed 10/09/2022 10/09/2022 10/30/2022 1:21 AM EST CoV-Risk 03/01/2023 03/01/2023 03/12/2023 1:22 AM EDT documented as of this encounter Care Teams Cnc Mill Programmer Relationship Specialty Start Date End Date Meghna Parson MD [email or web address] PCP - General Internal Medicine 12/31/20 01/04/22 Marian Alicia MD [address] [place] [address], [address] [place] [address] [email or web address] PCP - General Family Medicine 01/05/22 Demond Roger MD [address] [place] [address] [email or web address] Historical LMR Provider 02/24/15 10/21/21 Tianna Coello MD [address] [place] [address] [email or web address] Historical LMR Provider 02/24/15 10/21/21 Yasmeen Ward MD [email or web address] Historical LMR Provider 02/24/1510/21 Macho Vincent DO [address] [place] [address] [email or web address] Primary Oncologist Hematology and Oncology 09/13/21 Camila Nayak FNP [address] [place] [address] [email or web address] Nurse Practitioner Medical Oncology 11/03/21 Mile Reynolds CNP [address] [place] [address] [email or web address] Nurse Practitioner Medical Oncology 11/03/21 documented as of this encounter Additional Source Comments The information contained in this document represents components of the legal health record. It is not the complete legal health record.[facility]
--- OUTSIDE RECORDS SUMMARY | 2025-06-22 07:47 | XMS_ITS | Encounter Summary ---
Author Organization [facility] Address [address] [address] Phone Care Team Providers Care Industrial Roofer Helper Name Role Phone Meghna Parson MD Primary Care Provi vipin Macho Vincent W DO Unavailable [phone] Camila Nayak CORPORATE TRAFFIC MANAGER Unavailable [phone] LICENSED PRACTICAL NURSE INSTRUCTOR Unavailable Marian Alicia MD Primary Care Provider [phone] Encounter Details Date Type Department Care Team (Late st Contact Info) Description 11/07/2021 Ancillary Orders [facility],Outside Imaging [address] [place], [place] [phone] System, Provider Not In, [place] [address] Social History Tobacco Use Types Packs/Day Years [...] * US Chest Outside (No Interpretation) (08/14/2021 12:00 AM EDT) Narrative SYSTEMGENERATED, DOCUMENTATION - 11/07/2021 11:16 AM EST This study is for PACS [...] documented as of this encounter Care Teams Industrial Roofer Helper Relationship Specialty Start Date End Date Meghna Parson MD [email or web address] PCP - General Internal Medicine 12/31/20 01/04/22 Marian Alicia MD [address] [place] [address], [address] [place] [address] [email or web address] PCP - General Family Medicine 01/05/22 Macho Vincent DO [address] [place] [address] [email or web address] Primary Oncologist Hematology and Oncology 09/13/21 Camila Nayak FNP [address] [place] [address] [email or web address] Nurse Practitioner Medical Oncology 11/03/21 Mile Reynolds CNP [address] [place] [address] Nurse Practitioner Medical Oncology 11/03/21 documented as of this encounter Additional Source Comments The information contained in this document represents components of the legal health record. It is not the complete legal health record.[facility]
--- OUTSIDE RECORDS SUMMARY | 2025-06-22 07:47 | XMS_ITS | Encounter Summary ---
Author Organization [facility] Address [address] [facility] [address] [place] [address] Phone Care Team Providers Care Soil Engineer Name Role Phone Dell Chiang MD Primary Care Provider Demond Roger MD Unavailable [phone] FeltTianna ng MD Unavailable [phone] Yasmeen Ward MD Unavailable [email or web address] Meghna Parson MD Primary Care Provi vipin Madalyn Rogers MD Primary Care Provide r Meghna Parson MD Primary Care Provi vipin Macho Vincent W DO Unavailable Camila Nayak HEATING AND COOLING TECHNICIAN Unavailable [phone] MAJOR LEAGUE BASEBALL PLAYER Unavailable Marian Alicia MD Primary Care Provider [phone] Encounter Details Date Type Department Care Team (Late st Contact Info) Description 08/04/2017 Ancillary Orders [address] [address] Meghna Parson MD [address] [place] [address] [email or web address] Cystic thyroid [email or web address] Social History Tobacco Use Types Packs/Day Years [...] as of this encounter Results * US Thyroid Gland (09/06/2017 8:57 AM EST) Anatomical Region Laterality Modality Neck, Head, Chest Ultrasound 09/06/2017 9:00 AM EST Impressions 09/06/2017 9:03 AM EST No significant interval change in right lobe colloid cyst since 01/28/2017. A new small cyst and a separate small nodule present in the left upper pole, not displaying sonographic features particular worrisome for a malignant process. No significant change in complex left lower pole cyst. POS [id number] Narrative 09/06/2017 9:03 AM EST COMPARISON: 01/28/2017 FINDINGS: The right thyroid lobe is grossly stable in size of 5.3 x 1.7 x 1.6 cm. Colloid cyst in the interpolar region is currently measured at 9 x 8 x 6 mm versus previous measurements of 10 x 6 x 6 mm. Right thyroid lobe is otherwise of homogeneous echo-texture. In the upper pole of the left lobe there is a new 4 x 4 x 3 mm cyst and slightly caudal to this a new 6 x 8 x 3 mm hypoechoic nodule. In the upper portion of left lobe there is a stable 8 x 9 x 5 mm hypoechoic nodule and in the lower pole a complex cyst with a small hypoechoic component currently measured 5 x 5 x 4 mm (previously 4 x 4 x 3 mm). No other interval changes are noted. Procedure Note Uzair Joe MD - 09/06/2017 COMPARISON: 01/28/2017 FINDINGS: The right thyroid lobe is grossly stable in size of 5.3 x 1.7 x 1.6 cm.Colloid cyst in the interpolar region is currently measured at 9 x 8 x 6mm versus previous measurements of 10 x 6 x 6 mm. Right thyroid lobe isotherwise of homogeneous echo-texture. In the upper pole of the left lobethere is a new 4 x 4 x 3 mm cyst and slightly caudal to this a new 6 x 8 x3 mm hypoechoic nodule. In the upper portion of left lobe there is astable 8 x 9 x 5 mm hypoechoic nodule and in the lower pole a complex cystwith a small hypoechoic component currently measured 5 x 5 x 4 mm(previously 4 x 4 x 3 mm). No other interval changes are noted. IMPRESSION: No significant interval change in right lobe colloid cyst since01/28/2017. A new small cyst and a separate small nodule present in theleft upper pole, not displaying sonographic features particular worrisomefor a malignant process. No significant change in complex left lower polecyst. POS [id number] us Meghna Parson MD IMG US THYROID Fin al Result documented in this encounter Visit Diagnoses Diagnosis Cystic thyroid nodule Cystic thyroid nodule documented in this encounter Additional Health Concerns Infection Onset Date Last Indicated Resolved Time CoV-Exposed Comment:Recent close contact documented in the COVID-19 PCR/PRO order 09/25/2021 10/03/2021 10/10/2021 1:[address] CoV-Presumed 10/09/2022 10/09/2022 10/30/2022 1:21 AM EST CoV-Risk 03/01/2023 03/01/2023 03/12/2023 1:22 AM EDT documented as of this encounter Care Teams Soil Engineer Relationship Specialty Start Date End Date Dell Chiang MD [address] [facility] [address] [place] [address] PCP - General 02/18/15 08/18/17 Meghna Parson MD [email or web address] PCP - General Internal Medicine 08/19/17 11/29/19 Madalyn Rogers MD [address] [place] [address] PCP - General 11/30/19 12/30/20 Meghna Parson MD [email or web address] PCP - General Internal Medicine 12/31/20 01/04/22 Marian Alicia MD [address] [place] [address] [address] [place] [address] [email or web address] PCP - General Family Medicine 01/05/22 Demond Roger MD [address] [place] [address] [email or web address] Historical LMR Provider 02/24/15 10/21/21 Tianna Coello MD [address] [place] [address] [email or web address] Historical LMR Provider 02/24/15 10/21/21 Yasmeen Ward MD [email or web address] Historical LMR Provider 02/24/1510/21 Macho Vincent DO [address] [place] [address] [email or web address] Primary Oncologist Hematology and Oncology 09/13/21 Camila Nayak FNP [address] [place] [address] [email or web address] Nurse Practitioner Medical Oncology 11/03/21 Mile Reynolds CNP [address] [place] [address] [email or web address] Nurse Practitioner Medical Oncology 11/03/21 documented as of this encounter Additional Source Comments The information contained in this document represents components of the legal health record. It is not the complete legal health record.[facility]
--- OUTSIDE RECORDS SUMMARY | 2025-06-22 07:47 | XMS_ITS | Encounter Summary ---
Author Organization [facility] Address [address] [place] [address] Phone Care Team Providers Care Gourmet Coffee Attendant Name Role Phone Demond Roger MD Unavailable [phone] FeltmateTianna MD Unavailable [phone] Yasmeen Ward MD Unavailable [email or web address] Meghna Parson MD Primary Care Provi vipin CarltonMacho gary W DO Unavailable [phone] Camila Nayak CLIENT RELATIONS ASSOCIATE Unavailable [phone] Pack, Mile ASSISTANT PROFESSOR OF HISTORY Unavailable Marian Alicia MD Primary Care Provider [phone] Encounter Details Date Type Department Care Team (Late st Contact Info) Description 06/13/2021 Transcribe Orders Virtual Department [address] [place] [address] Meghna Parson MD [address] [place], [place] [id number] [email or web address] Post-void dribbling (Primary Dx) Social History Tobacco Use Types [...] as of this encounter Results * US Bladder (06/27/2021 1:32 PM EDT) Anatomical Region Laterality Modality Abdomen, Kidney Ultrasound 06/27/2021 2:35 PM EDT Impressions 06/27/2021 2:37 PM EDT Normal bladder ultrasound POS [id number] Narrative 06/27/2021 2:37 PM EDT No comparison No generalized bladder wall thickening or focal filling defects. Bilateral ureteral jets are visible. Prevoid volume 288 cc. Postvoid volume 32 cc (11% residual) Procedure Note Satya Do MD - 06/27/2021 No comparison No generalized bladder wall thickening or focal filling defects. Bilateral ureteral jets are visible. Prevoid volume 288 cc. Postvoid volume 32 cc (11% residual) IMPRESSION: Normal bladder ultrasound POS [id number] Meghna Parson MD IMG US RENAL Fin al Result documented in this encounter Visit Diagnoses Diagnosis Post-void dribbling- Primary Post-void dribbling documented in this encounter Additional Health Concerns Infection Onset Date Last Indicated Resolved Time CoV-Exposed Comment:Recent close contact documented in the COVID-19 PCR/PRO order 09/25/2021 10/03/2021 10/10/2021 1:[address] CoV-Presumed 10/09/2022 10/09/2022 10/30/2022 1:21 AM EST CoV-Risk 03/01/2023 03/01/2023 03/12/2023 1:22 AM EDT documented as of this encounter Care Teams Gourmet Coffee Attendant Relationship Specialty Start Date End Date Meghna Parson MD [email or web address] PCP - General Internal Medicine 12/31/20 01/04/22 Marian Alicia MD [address] [place] [address], [address] [place] [address] [email or web address] PCP - General Family Medicine 01/05/22 Demond Roger MD [address] [place] [address] [email or web address] Historical LMR Provider 02/24/15 10/21/21 Tianna Coello MD [address] [place] [address] [email or web address] Historical LMR Provider 02/24/15 10/21/21 Yasmeen Ward MD [email or web address] Historical LMR Provider 02/24/1510/21 Macho Vincent DO [address] [place] [address] [email or web address] Primary Oncologist Hematology and Oncology 09/13/21 Camila Nayak FNP [address] [place] [address] [email or web address] Nurse Practitioner Medical Oncology 11/03/21 Mile Reynolds CNP [address] [place] [address] Nurse Practitioner Medical Oncology 11/03/21 documented as of this encounter Additional Source Comments The information contained in this document represents components of the legal health record. It is not the complete legal health record.[facility]
--- OUTSIDE RECORDS SUMMARY | 2025-06-22 07:47 | XMS_ITS | Encounter Summary ---
Author Organization [facility] Address [address] [facility] [address] [place] [address] Phone Care Team Providers Care Snuff Blender Name Role Phone Demond Roger MD Unavailable [phone] FeltTianna ng MD Unavailable [phone] Yasmeen Ward MD Unavailable [email or web address] Meghna Parson MD Primary Care Provi vipin Madalyn Rogers MD Primary Care Provide r Meghna Parson MD Primary Care Provi vipin Macho Vincent DO Unavailable [phone] Camila Nayak EMAIL MARKETING COORDINATOR Unavailable Mile Reynolds BEESWAX BLEACHER Unavailable Marian Alicia MD Primary Care Provider [phone] Encounter Details Date Type Department Care Team (Late st Contact Info) Description 02/13/2018 Transcribe Orders [facility] Laboratory [address] [place] [address] Meghna Parson MD [address] [place], [place] [phone] [email or web address] Fatigue, unspecified type (Primary Dx) Social History Tobacco Use Types [...] documented as of this encounter Results * Vitamin B12 (02/13/2018 10:08 AM EDT) VITAMIN B12 410 232 - 1,245 pg/mL [facility] Comment:The reference range had been changed on January 24, 2018 from 243 - 894pg/mL to 232 - 1245 pg/mL. Blood 02/13/2018 10:0 8 AM EDT 02/13/2018 10:14 AM EDT us Meghna Parson MD LAB BLOOD ORDERABLE S Final Result [address] [address] * Iron and iron binding capacity (02/13/2018 10:08 AM EDT) IRON 70 30 - 160 ug/dL [facility] IRON BINDING CAPACITY 229 228 - 428 ug/dL [facility] TRANSFERRIN SATURAT. 31 15 - 50 % [facility] Blood 02/13/2018 10:0 8 AM EDT 02/13/2018 10:14 AM EDT us Meghna Parson MD LAB BLOOD ORDERABLE S Final Result Performing Organization Address City/[facility]/ZIP Co de Phone Number [address] [address] * (ABNORMAL) Ferritin (02/13/2018 10:08 AM EDT) FERRITIN 154(H) 13 - 150 ug/L [facility] Blood 02/13/2018 10:0 8 AM EDT 02/13/2018 10:14 AM EDT Meghna Parson MD LAB BLOOD ORDERABLE S Final Result Performing Organization Address City/[facility]/ZIP Co de Phone Number [address] [address] * CPK (creatine kinase) (02/13/2018 10:08 AM EDT) CREATINE KINASE 173 21 - 215 U/L [facility] Blood 02/13/2018 10:0 8 AM EDT 02/13/2018 10:14 AM EDT Meghna Parson MD LAB BLOOD ORDERABLE S Final Result Performing Organization Address [facility] Co de Phone Number [address] [address] * TSH with reflex (02/13/2018 10:08 AM EDT) TSH 1.69 0.27 - 4.20 uIU/mL [facility] Blood 02/13/2018 10:0 8 AM EDT 02/13/2018 10:14 AM EDT Meghna Parson MD LAB BLOOD ORDERABLE S Final Result Performing Organization Address City/[facility] Co de Phone Number [address] [address] * CBC and differential (02/13/2018 10:08 AM EDT) WBC 7.06 3.40 - 11.20 K/uL [facility] RBC 4.79 3.80 - 4.80 M/uL [facility] HGB 14.2 12.0 - 15.0 g/dL [facility] HCT 43.5 36.0 - 46.0 % [facility] PLT 262 130 - 400 K/uL [facility] MCV 90.8 79.0 - 98.0 fL [facility] MCH 29.6 27.0 - 34.8 pg [facility] MCHC 32.6 31.5 - 36.0 g/dL [facility] RDW 12.8 10.8 - 14.6 % [facility] MPV 9.8 9.4 - 12.4 fl [facility] NRBC 0.00 /100 WBCs [facility] ABSOLUTE NRBC 0.00 K/uL [facility] DIFF METHOD Auto [facility] NEUTS 55.8 45.30 - 77.70 % [facility] LYMPHS 32.7 12.30 - 39.70 % [facility] MONOS 8.4 4.10 - 12.80 % [facility] EOS 2.1 0 - 7.2 % [facility] BASOS 0.4 0 - 2.80 % [facility] Granulocytes, immature (%) 0.6 0.0 - 0.9 % [facility] ABSOLUTE NEUTS 3.94 1.40 - 7.70 K/uL [facility] ABSOLUTE LYMPHS 2.31 0.60 - 3.20 K/uL [facility] ABSOLUTE MONOS 0.59 0.11 - 0.59 K/uL [facility] ABSOLUTE EOS 0.15 0.01 - 0.50 K/uL [facility] ABSOLUTE BASOS 0.03 0.00 - 0.08 K/uL [facility] Granulocytes, immature 0.04 0.00 - 0.05 K/uL [facility] Blood 02/13/2018 10:0 8 AM EDT 02/13/2018 10:14 AM EDT us Meghna Parson MD LAB BLOOD ORDERABLE S Final Result [facility] [address] [place] [address] * (ABNORMAL) Comprehensive metabolic panel (02/13/2018 10:08 AM EDT) Pathologist [facility] SODIUM 146 133 - 146 mmol/L [facility] POTASSIUM 4.2 3.3 - 5.1 mmol/L [facility] CHLORIDE 106 96 - 108 mmol/L [facility] CO2 27 21 - 35 mmol/L [facility] BUN 17 6 - 19 mg/dL [facility] CREATININE 1.00 0.5 - 1.5 mg/dL [facility] GLUCOSE 69(L) 70 - 99 mg/dL [facility] ALBUMIN 3.9 3.9 - 4.8 g/dL [facility] TOTAL PROTEIN 6.4(L) 6.5 - 8.0 g/dL [facility] CALCIUM 9.3 8.4 - 10.3 mg/dL [facility] ALKALINE PHOSPHATASE 77 39 - 117 U/L [facility] TOTAL BILIRUBIN 0.3 0.0 - 1.2 mg/dL [facility] AST 21 0 - 37 U/L [facility] ALT 13 0 - 40 U/L [facility] GLOBULIN 2.5 1 - 4.8 g/dL [facility] EGFR 65 >59 mL/min/1.7 3m2 [facility] Comment:If patient is black, multiply result by 1.159. The eGFR calculation has changed from the MDRD equation to the CKD-EPI equation as of December 17, 2017. ANION GAP 17 10 - 20 mmol/L [facility] Blood 02/13/2018 10:0 8 AM EDT 02/13/2018 10:14 AM EDT us Meghna Parson MD LAB BLOOD ORDERABLE S Final Result [address] [address] documented in this encounter Visit Diagnoses Diagnosis Fatigue, unspecified type- Primary documented in this encounter Additional Health Concerns Infection Onset Date Last Indicated Resolved Time CoV-Exposed Comment:Recent close contact documented in the COVID-19 PCR/PRO order 09/25/2021 10/03/2021 10/10/2021 1:[address] CoV-Presumed 10/09/2022 10/09/2022 10/30/2022 1:21 AM EST CoV-Risk 03/01/2023 03/01/2023 03/12/2023 1:22 AM EDT documented as of this encounter Care Teams Snuff Blender Relationship Specialty Start Date End Date Meghna Parson MD [email or web address] PCP - General Internal Medicine 08/19/17 11/29/19 Madalyn Rogers MD [address] [place] [address] PCP - General 11/30/19 12/30/20 Meghna Parson MD [email or web address] PCP - General Internal Medicine 12/31/20 01/04/22 Marian Alicia MD [address] [place] [address] [email or web address] PCP - General Family Medicine 01/05/22 Demond Roger MD [address] [place] [address] [email or web address] Historical LMR Provider 02/24/15 10/21/21 Tianna Coello MD [address] [place] [address] [email or web address] Historical LMR Provider 02/24/15 10/21/21 Yasmeen Ward MD [email or web address] Historical LMR Provider 02/24/1510/21 Macho Vincent DO [address] [place] [address] [email or web address] Primary Oncologist Hematology and Oncology 09/13/21 Camila Nayak FNP [address] [place] [address] [email or web address] Nurse Practitioner Medical Oncology 11/03/21 Mile Reynolds CNP [address] [place] [address] [email or web address] Nurse Practitioner Medical Oncology 11/03/21 documented as of this encounter Additional Source Comments The information contained in this document represents components of the legal health record. It is not the complete legal health record.[facility]
--- OUTSIDE RECORDS SUMMARY | 2025-06-22 07:47 | XMS_ITS | Encounter Summary ---
Author Organization [facility] Address [address] [facility] [address] [place] [address] Phone Care Team Providers Care Decorating Kiln Operator Name Role Phone Demond Roger MD Unavailable [phone] FeltmateTianna MD Unavailable [phone] Yasmeen Ward MD Unavailable [email or web address] Meghna Parson MD Primary Care Provi vipin CarltonMacho gary W DO Unavailable Camila Nayak GEOMORPHOLOGY TEACHER Unavailable GailTristanen AVIATION MEDICINE SPECIALIST Unavailable Marian Alicia MD Primary Care Provider [phone] Encounter Details Date Type Department Care Team (Late st Contact Info) Description 10/04/2021 Transcribe Orders Virtual Department 30 [place] [address] Meghna Parson MD [address] [place], [place] [phone] [email or web address] Low back pain, unspecified back pain laterality, unspecified chronicity, unspecified whether sciatica present (Primary Dx) Social History Tobacco Use Types [...] as of this encounter Visit Diagnoses Diagnosis Low back pain, unspecified back pain laterality, unspecified chronicity, unspecified whether sciatica present- Primary documented in this encounter Additional Health Concerns Infection Onset Date Last Indicated Resolved Time CoV-Exposed Comment:Recent close contact documented in the COVID-19 PCR/PRO order 09/25/2021 10/03/2021 10/10/2021 1:[address] CoV-Presumed 10/09/2022 10/09/2022 10/30/2022 1:21 AM EST CoV-Risk 03/01/2023 03/01/2023 03/12/2023 1:22 AM EDT documented as of this encounter Care Teams Decorating Kiln Operator Relationship Specialty Start Date End Date Meghna Parson MD [email or web address] PCP - General Internal Medicine 12/31/20 01/04/22 Marian Alicia MD [address] [place] [address], [address] [place] [address] [email or web address] PCP - General Family Medicine 01/05/22 Demond Roger MD [address] [place] [address] [email or web address] Historical LMR Provider 02/24/15 10/21/21 Tianna Coello MD [address] [place] [address] [email or web address] Historical LMR Provider 02/24/15 10/21/21 Yasmeen Ward MD [email or web address] Historical LMR Provider 02/24/1510/21 Macho Vincent DO [address] [place] [address] [email or web address] Primary Oncologist Hematology and Oncology 09/13/21 Camila Nayak FNP [address] [place] [address] [email or web address] Nurse Practitioner Medical Oncology 11/03/21 Mile Reynolds CNP [address] [place] [address] [email or web address] Nurse Practitioner Medical Oncology 11/03/21 documented as of this encounter Additional Source Comments The information contained in this document represents components of the legal health record. It is not the complete legal health record.[facility]
--- OUTSIDE RECORDS SUMMARY | 2025-06-22 07:47 | XMS_ITS | Encounter Summary ---
Author Organization [facility] Address [address] [facility] [address] [place] [address] Phone Care Team Providers Care Lockstitch Pocket Setter Name Role Phone Demnod Roger MD Unavailable [phone] FeltTianna ng MD Unavailable [phone] Yasmeen Ward MD Unavailable [email or web address] Meghna Parson MD Primary Care Provi vipin Madalyn Rogers MD Primary Care Provide r Meghna Parson MD Primary Care Provi vipin Macho Vincent DO Unavailable [phone] Camila Nayak RUFFLER Unavailable [phone] Mile Reynolds ACCESS NURSE Unavailable Marian Alicia MD Primary Care Provider [phone] Encounter Details Date Type Department Care Team (Late st Contact Info) Description 08/31/2019 Ancillary Orders Virtual Department 30 [place] [address] Meghna Parson MD [address] [place], [place] [phone] [email or web address] Breast screening Social History Tobacco Use [...] MAMMOGRAM SCREENING WITH TOMOSYNTHESIS WITH CAD (BILATERAL) (09/07/2019 3:23 PM EST) Anatomical Region Laterality Modality Breast Left, Breast Right, Breast Bilateral Bila teral Mammography 09/08/2019 9:36 AM EST Impressions 09/08/2019 9:37 AM EST No mammographic evidence of malignancy. Annual mammographic screening is recommended. Patients at this facility are entered into a reminder system for their next appointment. Density: There are scattered fibroglandular densities. BI-RADS CATEGORY: 1 - Negative. POS - [email or web address] Narrative 09/08/2019 9:37 AM EST CLINICAL HISTORY: * Annual TECHNIQUE: Tomosynthesis as well as 2D C-view imaging obtained. Computer-aided detection also utilized. CC and MLO views of both breasts obtained. COMPARISON: multiple prior studies through 08/21/2013 FINDINGS: There is no suspicious mass, calcification or architectural distortion. There is no worrisome change from the patient's prior study. Procedure Note Elvin Serna MD - 09/08/2019 CLINICAL HISTORY: * Annual TECHNIQUE: Tomosynthesis as well as 2D C-view imaging obtained.Computer-aided detection also utilized. CC and MLO views of both breastsobtained. COMPARISON: multiple prior studies through 08/21/2013 FINDINGS: There is no suspicious mass, calcification or architectural distortion. There is no worrisome change from the patient's prior study. IMPRESSION: No mammographic evidence of malignancy. Annual mammographic screening isrecommended. Patients at this facility are entered into a reminder systemfor their next appointment. Density: There are scattered fibroglandular densities. BI-RADS CATEGORY: 1 - Negative. POS - CDHMAM2 Meghna Parson MD IMG MG EXAMS Fin [...] documented as of this encounter Care Teams Lockstitch Pocket Setter Relationship Specialty Start Date End Date Meghna Parson MD [email or web address] PCP - General Internal Medicine 08/19/17 11/29/19 Madalyn Rogers MD [address] [place] [address] PCP - General 11/30/19 12/30/20 Meghna Parson MD [email or web address] PCP - General Internal Medicine 12/31/20 01/04/22 Marian Alicia MD [address] [place] [address] 7 [place] [address] PCP - General Family Medicine 01/05/22 Demond Roger MD [address] [place] [address] [email or web address] Historical LMR Provider 02/24/15 10/21/21 Tianna Coello MD [address] [place] [address] [email or web address] Historical LMR Provider 02/24/15 10/21/21 Yasmeen Ward MD [email or web address] Historical LMR Provider 02/24/1510/21 Macho Vincent DO [address] [place] [address] [email or web address] Primary Oncologist Hematology and Oncology 09/13/21 Camila Nayak FNP [address] [place] [address] [email or web address] Nurse Practitioner Medical Oncology 11/03/21 Mile Reynolds CNP [address] [place] [address] [email or web address] Nurse Practitioner Medical Oncology 11/03/21 documented as of this encounter Additional Source Comments The information contained in this document represents components of the legal health record. It is not the complete legal health record.[facility]
--- OUTSIDE RECORDS SUMMARY | 2025-06-22 07:47 | XMS_ITS | Encounter Summary ---
Author Organization [facility] Address [address] [facility] [address] [place] [address] Phone Care Team Providers Care Parimutuel Cashier Name Role Phone Demond Roger MD Unavailable [phone] FeltTianna ng MD Unavailable [phone] Yasmeen Ward MD Unavailable [email or web address] Meghna Parson MD Primary Care Provi vipin Madalyn Rogers MD Primary Care Provide r Meghna Parson MD Primary Care Provi vipin Macho Vincent DO Unavailable [phone] Camila Nayak CHILD PSYCHOLOGIST Unavailable Mile Reynolds LIVESTOCK FARM MANAGER Unavailable Marian Alicia MD Primary Care Provider [phone] Encounter Details Date Type Department Care Team (Latest Contact Info) Description 03/04/2018 Transcribe Orders [facility] Laboratory [address] [place] [address] SabasLondon MD [address] [facility] [address] [place], [place] [phone] [email or web address] Dyspnea, unspecified type (Primary Dx) Social History Tobacco [...] documented as of this encounter Results * D-dimer (03/04/2018 11:31 AM EDT) D-DIMER <215 <500 ng/mL [facility] Comment:In patients with low to moderate pre-test probability scores for VTE (PE or DVT), a D-Dimer cut-off less than 500 ng/mL ([facility]) has a negative predictive value (NPV) of 97 to 100%. Blood 03/04/2018 11:3 1 AM EDT 03/04/2018 11:33 AM EDT London Obregon MD LAB BLOOD ORDERABLES Final Resu lt Performing Organization Address City/State/[facility] Co de Phone Number [address] [address] documented in this encounter Visit Diagnoses Diagnosis Dyspnea, unspecified type- Primary documented in this encounter Additional Health Concerns Infection Onset Date Last Indicated Resolved Time CoV-Exposed Comment:Recent close contact documented in the COVID-19 PCR/PRO order 09/25/2021 10/03/2021 10/10/2021 1:[address] CoV-Presumed 10/09/2022 10/09/2022 10/30/2022 1:21 AM EST CoV-Risk 03/01/2023 03/01/2023 03/12/2023 1:22 AM EDT documented as of this encounter Care Teams Parimutuel Cashier Relationship Specialty Start Date End Date Meghna Parson MD [email or web address] PCP - General Internal Medicine 08/19/17 11/29/19 Madalyn Rogers MD [address] [place] [address] PCP - General 11/30/19 12/30/20 Meghna Parson MD [email or web address] PCP - General Internal Medicine 12/31/20 01/04/22 Marian Alicia MD [address] [place] [address] [email or web address] PCP - General Family Medicine 01/05/22 Demond Roger MD [address] [place] [address] [email or web address] Historical LMR Provider 02/24/15 10/21/21 Tianna Coello MD [address] [place] [address] [email or web address] Historical LMR Provider 02/24/15 10/21/21 Yasmeen Ward MD [email or web address] Historical LMR Provider 02/24/1510/21 Macho Vincent DO [address] [place] [address] [email or web address] Primary Oncologist Hematology and Oncology 09/13/21 Camila Nayak FNP [address] [place] [address] [email or web address] Nurse Practitioner Medical Oncology 11/03/21 Mile Reynolds CNP [address] [place] [address] [email or web address] Nurse Practitioner Medical Oncology 11/03/21 documented as of this encounter Additional Source Comments The information contained in this document represents components of the legal health record. It is not the complete legal health record.[facility]
--- OUTSIDE RECORDS SUMMARY | 2025-06-22 07:47 | XMS_ITS | Encounter Summary ---
Author Organization [facility] Address [address] [address] Phone Care Team Providers Care Compressor Station Operator Name Role Phone Meghna Parson MD Primary Care Provi vipin Macho Vincent W DO Unavailable [phone] Camila Nayak RUG DRYING MACHINE OPERATOR Unavailable [phone] NARROW FABRIC LOOM FIXER Unavailable Marian Alicia MD Primary Care Provider [phone] Encounter Details Date Type Department Care Team (Late st Contact Info) Description 11/07/2021 Ancillary Orders [facility],Outside Imaging [address] [place], [place] [id number] System, Provider [place] In, [place] [address] Social History Tobacco Use Types Packs/Day Years [...] as of this encounter Results * XR Chest Outside (No Interpretation) (08/13/2021 12:05 AM EDT) Narrative SYSTEMGENERATED, DOCUMENTATION - 11/07/2021 11:19 AM EST This study is for PACS [...] documented as of this encounter Care Teams Compressor Station Operator Relationship Specialty Start Date End Date Meghna Parson MD [email or web address] PCP - General Internal Medicine 12/31/20 01/04/22 Marian Alicia MD [address] [place] [address], [address] [place] [address] [email or web address] PCP - General Family Medicine 01/05/22 Macho Vincent DO [address] [place] [address] [email or web address] U Primary Oncologist Hematology and Oncology 09/13/21 Camila Nayak FNP [address] [place] [address] [email or web address] Nurse Practitioner Medical Oncology 11/03/21 Mile Reynolds CNP [address] [place] [address] Nurse Practitioner Medical Oncology 11/03/21 documented as of this encounter Additional Source Comments The information contained in this document represents components of the legal health record. It is not the complete legal health record.[facility]
--- OUTSIDE RECORDS SUMMARY | 2025-06-22 07:47 | XMS_ITS | Encounter Summary ---
Author Organization [facility] Address [address] [facility] [address] [place] [address] Phone Care Team Providers Care Applied Biology Professor Name Role Phone Demond Roger MD Unavailable [phone] FeltTianna ng MD Unavailable [phone] Yasmeen Ward MD Unavailable [email or web address] Meghna Parson MD Primary Care Provi vipin Madalyn Rogers MD Primary Care Provide r Meghna Parson MD Primary Care Provi vipin Macho Vincent DO Unavailable [phone] Camila Nayak CAR WRECKER Unavailable Mile Reynolds SKIN PEELING MACHINE OPERATOR Unavailable Marian Alciia MD Primary Care Provider [phone] Encounter Details Date Type Department Care Team (Late st Contact Info) Description 11/12/2019 Transcribe Orders Virtual Department 30 [place] [address] Meghna Parson MD [address] [place], [place] [id number] [email or web address] Dysuria (Primary Dx) Social History Tobacco Use Types [...] this encounter Results * (ABNORMAL) Urine culture (11/12/2019 4:30 PM EST) Special Requests None 11/12/2019 6:01 PM EST [facility] GRAM STAIN NO ORGANISMS SEEN 11/13/2019 9:06 AM EST [facility] Urine Culture 10,000 to 100,000 colony forming units per mL MIXED HAYLEE (3 OR MORE COLONY TYPES) Culture indicates contamination . Please resubmit if necessary.(A) 11/14/2019 10:46 AM EST [facility] Urine (Urine) 11/12/2019 4:3 0 PM EST 11/12/2019 6:00 PM EST us Meghna Parson MD MICROBIOLOGY - [facility]ENE [facility] ORDERABLES Final Result [address] [address] * (ABNORMAL) URINALYSIS WITH SEDIMENT (11/12/2019 4:30 PM EST) WBC 0-4(A) NONE SEEN /hpf [facility] RBC NONE SEEN NONE SEEN /hpf [facility] URINE EPITHELIAL 0-4(A) NONE SEEN [facility] MUCUS Trace(A) NONE SEEN /hpf [facility] BACTERIA NONE SEEN NONE SEEN /hpf [facility] COLOR Yellow Yellow [facility] CLARITY Clear [facility] GLUCOSE Negative Negative [facility] BILI Negative Negative [facility] KETONES Negative Negative [facility] SPECIFIC GRAVITY 1.015 1.005 - 1.030 [facility] BLOOD Negative Negative [facility] PH 5.5 5.0 - 8.0 [facility] Protein-UA Negative Negative [facility] NITRITE Negative Negative [facility] Leukocyte esterase, ur Negative Negative [facility] Urine (Urine) 11/12/2019 4:3 0 PM EST 11/12/2019 6:09 PM EST us Meghna Parson MD URINE ORDERABLES Fi nal Result [facility] [address] [place] [address] documented in this encounter Visit Diagnoses Diagnosis Dysuria- Primary documented in this encounter Additional Health Concerns Infection Onset Date Last Indicated Resolved Time CoV-Exposed Comment:Recent close contact documented in the COVID-19 PCR/PRO order 09/25/2021 10/03/2021 10/10/2021 1:[address] CoV-Presumed 10/09/2022 10/09/2022 10/30/2022 1:21 AM EST CoV-Risk 03/01/2023 03/01/2023 03/12/2023 1:22 AM EDT documented as of this encounter Care Teams Applied Biology Professor Relationship Specialty Start Date End Date Meghna Parson MD [email or web address] PCP - General Internal Medicine 08/19/17 11/29/19 Madalyn Rogers MD [address] [place] [address] PCP - General 11/30/19 12/30/20 Meghna Parson MD [email or web address] PCP - General Internal Medicine 12/31/20 01/04/22 Marian Alicia MD [address] [place] [address], [address] [place] [address] [email or web address] PCP - General Family Medicine 01/05/22 Demond Roger MD [address] [place] [address] [email or web address] Historical LMR Provider 02/24/15 10/21/21 Tianna Coello MD [address] [place] [address] [email or web address] Historical LMR Provider 02/24/15 10/21/21 Yasmeen Ward MD [email or web address] Historical LMR Provider 02/24/1510/21 Macho Vincent DO [address] [place] [address] [email or web address] Primary Oncologist Hematology and Oncology 09/13/21 Camila Nayak FNP [address] [place] [address] [email or web address] Nurse Practitioner Medical Oncology 11/03/21 Mile Reynolds CNP [address] [place] [address] [email or web address] Nurse Practitioner Medical Oncology 11/03/21 documented as of this encounter Additional Source Comments The information contained in this document represents components of the legal health record. It is not the complete legal health record.[facility]
--- OUTSIDE RECORDS SUMMARY | 2025-06-22 07:47 | XMS_ITS | Encounter Summary ---
Author Organization [facility] Address [address] [facility] [address] [place] [address] Phone Care Team Providers Care Pallet Assembler Name Role Phone Dell Chiang MD Primary Care Provider [phone] Demond Roger MD Unavailable [phone] FeltTianna ng MD Unavailable [phone] Yasmeen Ward MD Unavailable [email or web address] Meghan Parson MD Primary Care Provi vipin Madalyn Rogers MD Primary Care Provide r Meghna Parson MD Primary Care Provi vipin Macho Vincent DO Unavailable Camila Nayak FINISHER ACCORDION Unavailable Mile Reynolds BOX SHOOK PATCHER Unavailable Marian Alicia MD Primary Care Provider [phone] Encounter Details Date Type Department Care Team (Late st Contact Info) Description 08/05/2017 Transcribe Orders [facility] [address] [place] [address] Steven Trinidad DO [address] [facility], [address] [place] [address] [phone] (work) [email or web address] Severe persistent asthma, unspecified whether complicated (Primary Dx) Social History Tobacco Use Types [...] documented as of this encounter Results * Pulmonary Function Test (09/06/2017 8:06 AM EST) FEV1 liters FVC liters FEV1/FVC % TLC liters DLCO ml/mmHg sec Anatomical Region Laterality Modality Other Impressions 09/06/2017 8:06 AM EST PULMONARY FUNCTION STUDIES Full pulmonary function studies were performed on this 52 y.o. year-old female for evaluation of severe persistent asthma. Reviewed of the medical record reveals that the patient is a never smoker. Prior pulmonary function studies are not available for comparison. SPIROMETRY: The FEV1 is normal at 2.80 L or 117% predicted. The FVC is normal at 3.55 L or 112% predicted. The FEV1/FVC ratio is normal at 79%. After the administration of a bronchodilator agent, there is no significant change. Mid flows and peak flows are also normal. FLOW-VOLUME LOOPS: Evaluation of the flow-volume loops reveals normal morphology of both the inspiratory and expiratory limbs with no significant difference when comparing the tracings performed pre- and post-bronchodilator. LUNG VOLUME MEASUREMENTS BY PLETHYSMOGRAPHY: The total lung capacity is normal at 4.61 L or 97% predicted. The functional residual capacity is normal at 1.56 L or 80% predicted. Of note, the ERV is markedly impaired, likely representing the imprint of body habitus, DIFFUSION CAPACITY: The diffusion capacity is mildly impaired at 18.8 mL/mmHg sec or 71% predicted. Resting oxygen saturation is 97% on room air. IMPRESSION: Abnormal pulmonary function studies as evidenced essentially by an isolated mild impairment in diffusion capacity. In the setting of a markedly impaired ERV and normalization with adjustments for alveolar volume (DLCO/VA 106% predicted), this may in part be secondary to extra pulmonary restriction and body habitus, though underlying pulmonary vascular disease, anemia, and/or early interstitial lung disease cannot be excluded and clinical correlation is advised. Spirometry reveals no evidence of airflow obstruction. Lung volume measurements are normal. Steven L Amos BRISCOE PFT ORDERABLES Final Result documented in this encounter Visit Diagnoses Diagnosis Severe persistent asthma, unspecified whether complicated- Primary Severe persistent asthma, unspecified whether complicated documented in this encounter Additional Health Concerns Infection Onset Date Last Indicated Resolved Time CoV-Exposed Comment:Recent close contact documented in the COVID-19 PCR/PRO order 09/25/2021 10/03/2021 10/10/2021 1:[address] CoV-Presumed 10/09/2022 10/09/2022 10/30/2022 1:21 AM EST CoV-Risk 03/01/2023 03/01/2023 03/12/2023 1:22 AM EDT documented as of this encounter Care Teams Pallet Assembler Relationship Specialty Start Date End Date Dell Chiang MD [address] [facility] [address] [place] [address] PCP - General 02/18/15 08/18/17 Meghna Parson MD [email or web address] PCP - General Internal Medicine 08/19/17 11/29/19 Madalyn Rogers MD [address] [place] [address] PCP - General 11/30/19 12/30/20 Meghna Parson MD [email or web address] PCP - General Internal Medicine 12/31/20 01/04/22 Marian Alicia MD [address] [place] [address], [address] [place] [address] [email or web address] PCP - General Family Medicine 01/05/22 Demond Roger MD [address] [place] [address] [email or web address] Historical LMR Provider 02/24/15 10/21/21 Tianna Coello MD [address] [place] [address] [email or web address] Historical LMR Provider 02/24/15 10/21/21 Yasmeen Ward MD [email or web address] Historical LMR Provider 02/24/1510/21 Macho Vincent DO [address] [place] [address] [email or web address] Primary Oncologist Hematology and Oncology 09/13/21 Camila Nayak FNP [address] [place] [address] [email or web address] Nurse Practitioner Medical Oncology 11/03/21 Mile Reynolds CNP [address] [place] [address] [email or web address] Nurse Practitioner Medical Oncology 11/03/21 documented as of this encounter Additional Source Comments The information contained in this document represents components of the legal health record. It is not the complete legal health record.[facility]
--- OUTSIDE RECORDS SUMMARY | 2025-06-22 07:47 | XMS_ITS | Encounter Summary ---
Author Organization [facility] Address [address] [address] Phone Care Team Providers Care Aoc Director Intelligence Officer Name Role Phone Meghna Parson MD Primary Care Provi vipin Macho Vincent W DO Unavailable [phone] Camila Nayak MARZIPAN MAKER Unavailable [phone] PRESS AND BLOW MACHINE TENDER Unavailable Marian Alicia MD Primary Care Provider [phone] Encounter Details Date Type Department Care Team (Late st Contact Info) Description 11/07/2021 Ancillary Orders [facility],Outside Imaging [address] [place], [place] [id number] System, Provider [place] In, [place] [address] Social History Tobacco Use Types Packs/Day Years [...] documented as of this encounter Results * CT Chest Outside (No Interpretation) (09/27/2021 12:00 AM EST) Narrative SYSTEMGENERATED, DOCUMENTATION - 11/07/2021 11:12 AM EST This study is for PACS [...] documented as of this encounter Care Teams Aoc Director Intelligence Officer Relationship Specialty Start Date End Date Meghna Parson MD [email or web address] PCP - General Internal Medicine 12/31/20 01/04/22 Marian Alicia MD [address] [place] [address], [address] [place] [address] [email or web address] PCP - General Family Medicine 01/05/22 Macho Vincent DO [address] [place] [address] [email or web address] Primary Oncologist Hematology and Oncology 09/13/21 Camila Nayak FNP [address] [place] [address] [email or web address] Nurse Practitioner Medical Oncology 11/03/21 Mile Reynolds CNP [address] [place] [address] Nurse Practitioner Medical Oncology 11/03/21 documented as of this encounter Additional Source Comments The information contained in this document represents components of the legal health record. It is not the complete legal health record.[facility]
--- OUTSIDE RECORDS SUMMARY | 2025-06-22 07:47 | XMS_ITS | Encounter Summary ---
Author Organization [facility] Address [address] [employer] [address] [address] Phone Care Team Providers Care Oil Expeller Operator Name Role Phone Meghna Parson MD Primary Care Provi vipin Macho Vincent W DO Unavailable [phone] Camila Nayak ELECTRICAL ENGINEERING DRAFTING OFFICER Unavailable [phone] MOULDER OPERATOR Unavailable Marian Alicia MD Primary Care Provider [phone] Encounter Details Date Type Department Care Team (Late st Contact Info) Description 11/07/[address] [facility],Outside Imaging [address] [place], [place] [id number] System, Provider [place] In, [place] [address] Social History Tobacco Use Types Packs/Day Years [...] Results * CT Chest Outside (No Interpretation) (09/10/2021 12:00 AM EST) Narrative SYSTEMGENERATED, DOCUMENTATION - 11/07/2021 11:13 AM EST This study is for PACS [...] documented as of this encounter Care Teams Oil Expeller Operator Relationship Specialty Start Date End Date Meghna Parson MD [email or web address] PCP - General Internal Medicine 12/31/20 01/04/22 Marian Alicia MD [address] [place] [address], [address] [place] [address] [email or web address] PCP - General Family Medicine 01/05/22 Macho Vincent DO [address] [place] [address] [email or web address] U Primary Oncologist Hematology and Oncology 09/13/21 Camila Nayak FNP [address] [place] [address] [email or web address] Nurse Practitioner Medical Oncology 11/03/21 Mile Reynolds CNP [address] [place] [address] Nurse Practitioner Medical Oncology 11/03/21 documented as of this encounter Additional Source Comments The information contained in this document represents components of the legal health record. It is not the complete legal health record.[facility]
--- OUTSIDE RECORDS SUMMARY | 2025-06-22 07:47 | XMS_ITS | Encounter Summary ---
Author Organization [facility] Address [address] [facility] [address] [place] [address] Phone Care Team Providers Care Freight Handler Name Role Phone Demond Roger MD Unavailable [phone] FeltTianna ng MD Unavailable [phone] Yasmeen Ward MD Unavailable [email or web address] Meghna Parson MD Primary Care Provi vipin Madalyn Rogers MD Primary Care Provide r Meghna Parson MD Primary Care Provi vipin Macho Vincent DO Unavailable [phone] Camila Nayak WINDSURFING INSTRUCTOR Unavailable Mile Reynolds INFORMATION TECHNOLOGY PROGRAM MANAGER Unavailable Marian Alicia MD Primary Care Provider [phone] Encounter Details Date Type Department Care Team (Late st Contact Info) Description 11/12/2019 Ancillary Orders Virtual Department [address] [place] [address] Meghna Parson MD [address] [place], [place] [phone] [email or web address] Multinodular goiter Social History Tobacco Use Types Packs/Day Years [...] this encounter Results * US Thyroid Gland (11/30/2019 12:37 PM EST) Anatomical Region Laterality Modality Neck, Head, Chest Ultrasound 11/30/2019 1:39 PM EST Impressions 11/30/2019 2:44 PM EST Bilateral cysts/nodules as described above. No specific follow up or fine needle aspiration recommended per ACR TI-RADS. POS - [id number] Narrative 11/30/2019 2:44 PM EST THYROID ULTRASOUND INDICATION: Multinodular goiter TECHNIQUE: Ultrasound evaluation of the thyroid gland was performed with campbell scale and color Doppler imaging. COMPARISON: September 06, 2017 FINDINGS: RIGHT THYROID: Right thyroid lobe demonstrates homogeneous echotexture measuring 5.1 x 1.5 x 1.8 cm. Nodules in right lobe are as: 1. Nodule in mid pole is almost completely cystic (0), anechoic (0), wider than tall (0), with smooth margins (0) and with large comet tail artifact (0). Nodule measures 1.0 x 0.8 x 0.7 cm .As per ACR TI-RADS nodule is categorized as TR-1 (benign) . No specific follow up or fine needle aspiration is recommended. LEFT THYROID: Left thyroid lobe demonstrates heterogeneous echotexture measuring 4.4 x 1.5 x 1.7 cm. Nodule(s) in the left lobe are described below. 1. Nodule in upper pole of is cystic (0). As per ACR TI-RADS nodule is categorized as TR-1 (benign) . No specific follow up or fine needle aspiration is recommended. 2. Nodule in lower pole is almost completely cystic (0), hypoechoic (2), wider than tall (0), with smooth margins (0) and without internal echogenic foci (0) Nodule measures 0.7 x 0.7 x 0.4 cm .As per ACR TI-RADS nodule is categorized as TR-2 ( not suspicious) No specific follow up or fine needle aspiration is recommended. 3. Previous ultrasound measured two additional lesions in the mid pole that are not well defined and appears to represent heterogeneous parenchyma on today's images. ISTHMUS: The isthmus is 0.2 cm wide. There are no thyroid nodules identified. Color doppler demonstrates absence of hyperemia. Procedure Note Chely Grace MD - 11/30/2019 THYROID ULTRASOUND INDICATION: Multinodular goiter TECHNIQUE: Ultrasound evaluation of the thyroid gland was performed withgray scale and color Doppler imaging. COMPARISON: September 06, 2017 FINDINGS: RIGHT THYROID: Right thyroid lobe demonstrates homogeneous echotexturemeasuring 5.1 x 1.5 x 1.8 cm. Nodules in right lobe are as: 1. Nodule in mid pole is almost completely cystic (0), anechoic (0),wider than tall (0), with smooth margins (0) and with large comet tailartifact (0). Nodule measures 1.0 x 0.8 x 0.7 cm .As per ACR TI-RADSnodule is categorized as TR-1 (benign) . No specific follow up or fineneedle aspiration is recommended. LEFT THYROID: Left thyroid lobe demonstrates heterogeneous echotexturemeasuring 4.4 x 1.5 x 1.7 cm. Nodule(s) in the left lobe are describedbelow. 1. Nodule in upper pole of is cystic (0). As per ACR TI-RADS nodule iscategorized as TR-1 (benign) . No specific follow up or fine needleaspiration is recommended. 2. Nodule in lower pole is almost completely cystic (0), hypoechoic (2),wider than tall (0), with smooth margins (0) and without internalechogenic foci (0) Nodule measures 0.7 x 0.7 x 0.4 cm .As per ACR TI-RADSnodule is categorized as TR-2 ( not suspicious) No specific follow up orfine needle aspiration is recommended. 3. Previous ultrasound measured two additional lesions in the mid polethat are not well defined and appears to represent heterogeneousparenchyma on today's images. ISTHMUS: The isthmus is 0.2 cm wide. There are no thyroid nodulesidentified. Color doppler demonstrates absence of hyperemia. IMPRESSION: Bilateral cysts/nodules as described above. No specific follow up or fineneedle aspiration recommended per ACR TI-RADS. POS - [id number] us Meghna Parson MD IMG US THYROID Fin al Result documented in this encounter Visit Diagnoses Diagnosis Multinodular goiter Nontoxic multinodular goiter Multinodular goiter Nontoxic multinodular goiter documented in this encounter Additional Health Concerns Infection Onset Date Last Indicated Resolved Time CoV-Exposed Comment:Recent close contact documented in the COVID-19 PCR/PRO order 09/25/2021 10/03/2021 10/10/2021 1:[address] CoV-Presumed 10/09/2022 10/09/2022 10/30/2022 1:21 AM EST CoV-Risk 03/01/2023 03/01/2023 03/12/2023 1:22 AM EDT documented as of this encounter Care Teams Freight Handler Relationship Specialty Start Date End Date Meghna Parson MD [email or web address] PCP - General Internal Medicine 08/19/17 11/29/19 Madalyn Rogers MD [address] [place] [address] PCP - General 11/30/19 12/30/20 Meghna Parson MD [email or web address] PCP - General Internal Medicine 12/31/20 01/04/22 Marian Alicia MD [address] [place] [address], [address] [place] [address] [email or web address] PCP - General Family Medicine 01/05/22 Demond Roger MD [address] [place] [address] [email or web address] Historical LMR Provider 02/24/15 10/21/21 Tianna Coello MD [address] [place] [address] [email or web address] Historical LMR Provider 02/24/15 10/21/21 Yasmeen Ward MD [email or web address] Historical LMR Provider 02/24/1510/21 Macho Vincent DO [address] [place] [address] [email or web address] Primary Oncologist Hematology and Oncology 09/13/21 Camila Nayak FNP [address] [place] [address] [email or web address] Nurse Practitioner Medical Oncology 11/03/21 Mile Reynolds CNP [address] [place] [address] [email or web address] Nurse Practitioner Medical Oncology 11/03/21 documented as of this encounter Additional Source Comments The information contained in this document represents components of the legal health record. It is not the complete legal health record.[facility]
--- OUTSIDE RECORDS SUMMARY | 2025-06-22 07:47 | XMS_ITS | Clinical Summary ---
Author Organization [facility] Address [address] [address] Phone Care Team Providers Care Retail Sales Specialist Name Role Phone Macho Vincent DO Unavailable Camila Nayak CLOUD SECURITY ARCHITECT Unavailable [employer] TOOTH INSPECTOR Unavailable Marian Alicia MD Primary Care Provider [phone] Allergies Active Allergy Reactions Criticality Noted Date Comments Fluconazole Rash Low 10/18/2021 Lorazepam 10/18/2021 Other reaction(s): agitation Nitrofurantoin Monohyd/M-Cryst Anaphylaxis 07/25/2004 Percocet (Oxycodone-Acetaminophen) GI Upset 07/25/2004 Quetiapine 10/18/2021 Other reaction(s): loss of appetite Quinolones Itching 07/25/2004 Sulfa (Sulfonamide Antibiotics) Anaphylaxis 07/25/2004 Medications miconazole 2 % powder MICONAZOLE NITRATE 2% POWDER 2% POWDER; Dose: 1 APPLICATION; Form: Not available; Route: TOP; Frequency: TID; Directions: Not available; Details: Dispense: 1 Bottle(s); Status: Active; Source: JENNIFER SYKES M.D.; Date: 02/27/2011 1 Active valACYclovir (VALTREX) 1000 MG tablet Take 1,000 mg by mouth as needed. 2 Active cloNIDine HCl (CATAPRES) 0.1 MG tablet Take 0.1 mg by mouth 2 (two) times a day. Active lamoTRIgine (LAMICTAL) 100 MG IMMEDIATE release tablet Take 250 mg by mouth nightly at bedtime. 1 Active mirtazapine (REMERON) 30 MG tablet Take 30 mg by mouth nightly at bedtime. 1 Active clonazePAM (KLONOPIN) 1 MG tablet 1 mg 2 (two) times a day. 2 Active risperiDONE (RISPERDAL) 1 MG tablet 2 (two) times a day. 2 Active venlafaxine (EFFEXOR-XR) 150 MG 24 hr capsule Take 300 mg by mouth daily. Active buPROPion (WELLBUTRIN XL) 300 MG ER 24 hr tablet Take 300 mg by mouth daily. Active clotrimazole-be tamethasone (LOTRISONE) creamIndication s:Intertrigo Apply topically 2 (two) times a day. 30 g 3 Active albuterol 90 mcg/actuation inhaler Inhale 2 puffs into the lungs every 4 (four) hours. Active furosemide (LASIX) 20 MG tabletIndicatio ns:Bilateral leg edema TAKE 2 TABLETS BY MOUTH DAILY 180 tablet 3 3 Active buPROPion (WELLBUTRIN XL) 150 MG ER 24 hr tablet Take 150 mg by mouth every morning. 3 Active ketoconazole 2 % cream APPLY TWICE A DAY X 10-14 DAYS 3 Active omeprazole (PRILOSEC) 40 MG capsuleIndicati ons:Esophageal dysphagia Take 1 capsule (40 mg total) by mouth daily. 180 capsule 1 4 Active triamcinolone acetonide 0.1 % ointmentIndicat ions:Dyshidroti c eczema Apply topically 2 (two) times a day. Apply to dry skin on hands. 2 weeks on/2 weeks off repeat as needed 60 g 3 4 Active famotidine (PEPCID) 20 MG tabletIndicatio ns:Esophageal dysphagia TAKE 1 TABLET BY MOUTH TWICE A DAY 180 tablet 3 4 Active warfarin (COUMADIN) 5 MG tabletIndicatio ns:DVT (deep venous thrombosis) Take 1 tablet (5 mg total) by mouth every morning. Take 5mg daily x 6 days/week Take 2.5mg daily x 1 day/week 90 tablet 3 5 Active Active Problems Patient Care Coordination No te Formatting of this note migh t be different from the original. Height 158.6 cm no shoes 05/20/2023 Problem Noted Date Diagnosed Date Plantar fasciitis, bilateral 07/25/2023 Acute cough 03/05/2023 Assessment & Plan (03/08/2023 10:50 AM EDT): Persistent symptoms. Lungs with less ronchi but now have wheezes throughout. Will start a burst of prednisone. Continue albuterol inhaler, can try OTC expectorants to help clear mucus. Again discussed that bronchitis can last 1-3 weeks, she should continue to be feeling better. Follow up as needed. Assessment & Plan (03/05/2023 4:04 PM EDT): She reports she is feeling improved from when she was in the ED, no further fevers or chills. I am concerned that she now has ronchi throughout her lungs, rather than one-sided as was the assessment in the ED. Will repeat CXR to assess for new pneumonia and can cover with extended antibiotic coverage. If CXR is not worse she will continue to monitor symptoms. Advised that bronchitis should resolve within 1-3 weeks and if she is not feeling better she should be seen again. Urinary urgency 01/23/2023 Intertrigo 01/23/2023 Elevated serum creatinine 04/17/2022 Assessment & Plan (04/17/2022 9:29 AM EDT): Up and down over the years, will check protein:creatinine to determine if proteinuria present, which would make me more concerned about overt CKD. Chronic pain of both knees 04/17/2022 Assessment & Plan (04/17/2022 9:28 AM EDT): At this point, she has knee pain that sounds MSK in origin that is not improving w/ conservative mgmt. Recommend ortho eval. History of DVT of lower extremity 03/08/2022 Assessment & Plan (03/08/2022 9:51 AM EDT): Germania has a history of DVTs. She has a Aurora filter in place and she is also taking Coumadin with an INR of 3.4 earlier this week. I reassured her that there is no clots noted on the ultrasound that she had done earlier this week as well. Follow-up with PCP as directed. She will call if there are any other issues or concerns. She understands and agrees. History of pulmonary embolism 01/23/2022 Endometriosis 10/18/2021 Posttraumatic stress disorder 10/18/2021 Migraine headache 10/18/2021 Mass of ovary 10/18/2021 Hypertension 10/18/2021 Assessment & Plan (04/17/2022 9:27 AM EDT): Well-controlled, off lisinopril. Assessment & Plan (03/08/2022 9:45 AM EDT): Germania Diaz has hypertension and she is taking the above medication as directed without any side effects. her blood pressure is within normal limits and stable. she will follow up as directed. Anxiety 10/18/2021 Polycystic ovarian syndrome 10/18/2021 S/P insertion of IVC (inferior vena caval) filte r 10/18/2021 Overview (10/18/2021): 08/14/2021, [facility] Assessment & Plan (10/18/2021 5:02 PM EST): I have encouraged her to follow through with reevaluation in 6 months for consideration of removal. Obstructive sleep apnea on CPAP 04/02/2018 Overview (04/02/2018): Followed by sleep medicine. Assessment & Plan (04/17/2022 9:28 AM EDT): Needs fitting for new mask. Input referral to [facility] sleep med. Assessment & Plan (04/02/2018 6:07 PM EDT): Scheduled to be seen next week; she will discuss her concerns about whether her current CPAP pressure is adequate with her sleep medicine team. Chronic seasonal allergic rhinitis due to pollen 01/15/2018 Assessment & Plan (01/15/2018 12:59 PM EDT): I advised that she continue Zyrtec, and initiated trial of Singulair. Beyond this, I will defer further management to her PCP. Breast mass 01/15/2018 Overview (01/15/2018): Benign, excised by Dr Sanchez. Resolved Problems Problem Noted Date Diagnosed Date Resolved Date Right leg pain 03/08/2022 01/23/2023 Assessment & Plan (03/08/2022 9:50 AM EDT): Germania presents for right knee pain and I suspect a strain status post exam. I reviewed her most recent ultrasound showing no clot/DVT. I put a referral to physical therapy. She was appreciative. She will call if things get worse or if there are any other issues or concerns. She understands and agrees. halfway (current) use of anticoagulants 03/01/2022 03/18/2024 Assessment & Plan (04/17/2022 9:26 AM EDT): Failed eliquis ==> now coumadin due to breakthrough DVT Severe obesity 10/18/2021 01/11/2022 DVT (deep venous thrombosis) 10/18/2021 01/23/2023 Overview (10/18/2021): 08/13/2021, [facility], s/p IVC filter. Assessment & Plan (04/17/2022 9:27 AM EDT): Most recently DVT in LLE 01/2022. Monitoring. Stable on coumadin w/ no new sx. Acute saddle pulmonary embol ism with acute cor pulmonale 10/18/2021 01/23/2023 Overview (10/18/2021): 08/13/2021, [facility]. Assessment & Plan (04/17/2022 9:27 AM EDT): Hx of, now stable, though w/ ongoing complications, s/p IVC and aurora filter. Assessment & Plan (10/18/2021 5:01 PM EST): She is on anticoagulation and managed by hematology. I have no additional pulmonary recommendation at this time. I do not believe repeat pulmonary function studies would alter management in this context. That being said, I will ask my office staff to obtain images and records from [facility] and plan to review them once available. High priority for COVID-19 vaccination 10/18/2021 01/11/2022 Assessment & Plan (10/18/2021 5:00 PM EST): She was concerned about possible risks of thromboembolic disease associated with booster doses of vaccination, however given the severe Omicron surge and her risk (obesity), as well as absence of significant safety concerns for thromboembolic disease with mRNA vaccines, I have urged booster vaccination dose EVELYN. History of acute bronchitis 04/02/2018 01/23/2023 Overview (04/02/2018): Requiring prolonged prednisone taper, with clear CXR 03/03/18, resolved by mid March. Assessment & Plan (04/02/2018 6:06 PM EDT): This is my best explanation for her bout of wheezing, dyspnea and hypoxemia associated with a viral prodrome and URI symptoms. Her clear CXR, clinical improvement, normal O2 saturation in the office today and normal TTE with normal PASP are reassuring. Monitor clinically going forward. Vocal cord dysfunction 01/15/201801/15 Wheezing 01/15/2018 10/18/2021 Overview (04/02/2018): Negative methacholine challenge study on 10/28/17 arguing against asthma. Assessment & Plan (04/02/2018 6:05 PM EDT): There has been no recurrence recently, and the negative methacholine challenge study strongly argues asthma. She is doing well off all inhalers. I suspect she suffered from a viral pneumonia or bronchitis with associated wheezing and has now recovered. I would continue to monitor her off inhalers. Should ensure influenza vaccination annually, next this fall. Assessment & Plan (01/15/2018 12:59 PM EDT): This been no recent recurrence of wheezing, and the etiology for her prior episodes is unclear. The differential diagnosis would include a postinfectious inflammatory response causing a component of reactive airways disease, versus laryngeal tension and vocal cord dysfunction, as this may also be related to her history of PTSD. Thankfully,her PTSD is better controlled now and there has been no recurrence of her respiratory symptoms. I am reassured by her negative methacholine challenge study, strongly arguing against asthma in this patient, as well as essentially normal pulmonary function studies. At this time, as she is doing well, I would monitor clinically going forward. If there is recurrence or further concern regarding her symptoms, I would recommend referral to ENT and speech therapy for further evaluation as there does not appear to be any significant underlying airways or pulmonary parenchymal disease. Asthma 09/20/2017 01/15/2018 Assessment & Plan (09/20/2017 4:41 PM EST): While you may have asthma, the diagnosis is uncertain, and it would be very helpful to evaluate further. For now: STOP Symbicort. (If your breathing worsens, call us.) We will obtain a methacholine challenge study, and see you in follow-up with a FeNO (exhaled nitric oxide measurement). If asthma confirmed, will try various ICS or ICS/LABA as needed, and consider Singulair given high IgE and atopy. We would then also ensure peak flow meter, asthma action plan and education, etc. An alternate consideration given wheezing most prevalent over the anterior neck is a component of vocal cord dysfunction, which could be further evaluated and managed by ENT and speech therapy. Up to date w flu shot. Encounters Date Type Department Care Team Description 06/03/2025 Telephone Schedule [facility] [address] [place] [address] Unknown, Unknown, Appointment from Last 3 Months Immunizations Immunization Administration Dates Next Due COVID-19 (Pre-08/05) Pfizer Vaccine, mRNA, PF 12/14/2020,11/23/2020 DT 06/28/1998 INFLUENZA, SPLIT VIRUS, TRIV ALENT W/ PRESERVATIVE IM 06/25/2010 Influenza Quadrivalent MDCK Preservative Free IM 07/20/2017 Influenza Quadrivalent Prese rvative Free IM 07/25/2023,08/13/2022,06/29/2021,08/02,08/11/2018 Influenza, Unspecified Formulation 07/25(Deferred: Patient Decision - Gets the flu shot elsewhere., Ordered By: [id number]) Pneumococcal polysaccharide PPSV23 05/25/2008, Pneumococcal, Unspecified Formulation 05/05/2008 Family History Medical History Relation Comments Aortic aneurysm Father Cataracts Father Heart failure Father Breast cancer Maternal Aunt Breast cancer Maternal Grandmother Breast cancer Mother Lung cancer Mother synovial sarcoma , primary pulmonary Relation Status Comments Father Alive Maternal Aunt Maternal Grandmother 94 Mother 57 of synov ial sarcoma Social History Tobacco Use Types Packs/Day Years Used Date Smoking Tobacco: Never Smokeless Tobacco: Never Tobacco Cessation:Counseling Given: Not Answered Alcohol Use Standard Drinks/Week Comments No 0 (1 standard drink = 0.6 oz pur e alcohol) Child or Family Care Answer Date Record ed Do you have problems with on e of the following making it difficult for you to work, study, or receive health care? No 01/08/2022 Education Answer Date Recorded Are you interested in more education? Not on nathalie e 01/14/2024 Are you concerned about learning? Not on file 01/14/2024 No 01/14/2024 No 01/14/2024 Food Answer Date Recorded Within the past 6 months we worried whether our food would run out before we got money to buy more. Never True 01/08/2022 Within the past 6 months the food we bought just didn't last and we didn't have enough money to get more. Never True Residential Stability Answer Date Recor ded What is your housing situation today? I have drake sing 01/08/2022 How many times have you move d in the past 12 months? Zero (I did not move) 01/08/2022 Paying for Meds Answer Date Recorded Do you have trouble paying for medicines? No 01/08/2022 Paying Utility Bills Answer Date Record ed Do you have trouble paying your heating or elect ricity bill? No 01/08/2022 Transportation Answer Date Recorded Has the lack of transportati on kept you from medical appointments or from getting medications? No 01/08/2022 Unemployment Answer Date Recorded Are you currently unemployed or working on a part-time or temporary basis, and looking for work? No 01/08/2022 Digital Access Answer Date Recorded No 03/06/2023 No 03/06/2023 Reliable internet access at home? Not on file 03/06/2023 Device with a working camera? Not on file Intimate Partner Violence Answer Date R ecorded Are you denied basic needs s uch as food, clothing, or medical care? No 03/01/2023 In the past 12 months have y ou been in a relationship with a person who hurts, threatens, or tries to control you? No 03/01/2023 Are you denied basic needs s uch as food, clothing, or medical care? No 03/01/2023 In the past 12 months have y ou been in a relationship with a person who hurts, threatens, or tries to control you? No 03/01/2023 Comments No Sex and Gender Information Value Date Recorded Sex Assigned at Female 01/19/2022 5:34 PM EDT Legal Sex Female 7:45 PM EST Gender Identity Female 01/19/2022 5:34 PM EDT Sexual Orientation Not on file Last Filed Vital Signs Vital Sign Reading Time Taken Comments Blood Pressure 120/60 11/05/2023 1:23 PM EST Pulse 92 11/05/2023 1:23 PM EST Temperature 36.3 C (97.3 F) 11/05/2023 1:23 PM EST Respiratory Rate 33 03/01/2023 10:00 PM EDT Oxygen Saturation 96% 11/05/2023 1:23 PM EST Inhaled Oxygen Concentration - - Weight 154 kg (339 lb 9.6 oz) 11/05/2023 1:23 PM EST Height 158.6 cm (5' 2.44 ) 11/05/2023 1:23 PM ES T Body Mass Index 61.24 11/05/2023 1:23 PM EST Plan of Treatment Health Maintenance Due Date Last Done Comments Adult Td,Tdap Booster 1966 COLOGUARD 2011 COLONOSCOPY 2011 COLORECTAL CANCER SCREENING 2011 FIT TEST 2011 FOBT 2011 SIGMOIDOSCOPY 2011 VIRTUAL COLONOSCOPY 2011 PNEUMOCOCCAL VACCINES (50+ years) (2 of 2 - PCV) 2016 05/25/2008, 05/05/2008 ZOSTER VACCINES (1 of 2) 2016 DEPRESSION SCREENING 01/24/2024 01/23/2023 BLOOD PRESSURE 05/05/2024 11/05/2023 COVID-19 VACCINE ( season) 2024 10/20/2021, 12/14/2020, 11/23/2020 MAMMOGRAM 02/04/2025 02/04/2023, 08/15, 09/09/2020, Additional history exists INFLUENZA VACCINE (#1) 2025 , 08/13/2022, 06/29/2021, Additional history exists SCREENING FOR DIABETES 07/27/2026 07/27/2023, 2022 LIPID PANEL 07/27/2028 07/27/2023, 12/13, 02/28/2019 HEPATITIS C SCREENING Completed 04/20/2008 HIV ONE-TIME SCREENING (18-65 YEARS) Completed 04/20/2008 SMOKING STATUS SCREENING (Once After 26 Yrs) Completed 11/05/2023 HEPATITIS A VACCINES Aged Out No long er eligible based on patient's age to complete this topic HIB VACCINES Aged Out No longer eligi ble based on patient's age to complete this topic MENINGOCOCCAL VACCINES (ACWY) Aged Out No longer eligible based on patient's age to complete this topic MENINGOCOCCAL VACCINES (B) Aged Out N o longer eligible based on patient's age to complete this topic Medical Devices Not on file Procedures Procedure Name Priority Date/Time Associated Diagnosis Comments LIPID PANEL Routine 07/27/2023 8:13 AM EDT Primary hypertension Elevated serum creatinine BI MAMMOGRAM SCREENING WITH TOMOSYNTHESIS WITH CAD (BILATERAL) Routine 02/04/2023 3:14 PM EDT Screening mammogram for breast cancer from Last 3 Months or Most Recently Relevant to Health Maintenance Results * (ABNORMAL) Lipid panel (07/27/2023 8:13 AM EDT) HDL 56 mg/dL [facility] Comment: Interpretation <40 mg/dL: Low HDL cholesterol (major risk factor for CHD) Greater than or equal to 60 mg/dL: High HDL cholesterol ( negative risk factor for CHD) HDL - cholesterol is affected by a number of factors, e.g. smoking, excerise, hormones, sex and age. CHOLESTEROL 271(H) 0 - 240 mg/dL [facility] TRIGLYCERIDES 193(H) 30 - 160 mg/dL [facility] LDL 176(H) 50 - 129 mg/dL [facility] Comment: LDL levels in terms of risk for coronary heart disease: <100 mg/dL: Optimal 100-129 mg/dL: Near or above optimal 130-159 mg/dL: Borderline high 160-189 mg/dL: High >190 mg/dL: Very High CARDIAC RISK RATIO 4.8(H) 3.3 - 4.4 C [facility] Blood 07/27/2023 8:13 AM EDT 07/27/2023 8:21 AM EDT us Marian Alicia MD LAB BLOOD ORDERABLES Bonnie l Result Performing Organization Address City/State/[facility] Co de Phone Number [address] [address] * BI MAMMOGRAM SCREENING WITH TOMOSYNTHESIS WITH CAD (BILATERAL) (02/04/2023 3:14 PM EDT) Anatomical Region Laterality Modality Breast Left, Breast Right, Breast Bilateral Bila teral Mammography 02/04/2023 8:23 PM EDT Impressions 02/04/2023 8:28 PM EDT BILATERAL BREASTS: Negative, no specific mammographic evidence of malignancy. Normal interval follow-up is recommended in 12 months. BI-RADS: BI-RADS CATEGORY: 1 - Negative. DENSITY: There are scattered fibroglandular densities. Narrative 02/04/2023 8:28 PM EDT STUDY: BI MAMMOGRAM SCREENING WITH TOMOSYNTHESIS WITH CAD (BILATERAL) TECHNIQUE: Bilateral full-field digital screening mammography is obtained and read in conjunction with computer-aided detection. Tomosynthesis as well as 2-D C view imaging were obtained. COMPARISON: Comparison made to multiple prior, most recent September 08, 2021, and most remote July 21, 2015. BREAST COMPOSITION: There are scattered areas of fibroglandular density BILATERAL BREASTS: No significant masses, suspicious calcifications or other abnormalities are seen in either breast. Procedure Note Chely Grace MD - 02/04/2023 STUDY: BI MAMMOGRAM SCREENING WITH TOMOSYNTHESIS WITH CAD (BILATERAL) TECHNIQUE: Bilateral full-field digital screening mammography is obtainedand read in conjunction with computer-aided detection. Tomosynthesis aswell as 2-D C view imaging were obtained. COMPARISON: Comparison made to multiple prior, most recent August, and most remote July 21, 2015. BREAST COMPOSITION: There are scattered areas of fibroglandulardensity BILATERAL BREASTS: No significant masses, suspicious calcifications orother abnormalities are seen in either breast. IMPRESSION: BILATERAL BREASTS: Negative, no specific mammographic evidence ofmalignancy. Normal interval follow-up is recommended in 12 months. BI-RADS: BI-RADS CATEGORY: 1 - Negative. DENSITY: There are scattered fibroglandular densities. Marian Alicia MD IMG MG EXAMS Final Res ult from Last 3 Months or Most Recently Relevant to Health Maintenance Insurance [facility] [place] [place] [address] [place] [address] [place] [address] [place] [facility] [place] [facility] [place] [facility] Advance Directives For more information, please contact: [phone] (9AM - 5PM Estella/[facility], Saturday-Saturday) Documents on File Type Date Recorded Patient Bisque Cleaner Expl anation Advance Directive - Non Epic LMR 09/13/2011 12:00 AM Care Teams Retail Sales Specialist Relationship Specialty Start Date End Date Marian Alicia MD [address] [place] [address], [address] [place] Cameron [id number] PCP - General Family Medicine 01/05/22 Macho Vincent DO [address] [place] [id number] [email or web address] Primary Oncologist Hematology and Oncology 09/13/21 Camila Nayak FNP [address] [place] [id number] [email or web address] Nurse Practitioner Medical Oncology 11/03/21 Mile Reynolds CNP [address] [place] [id number] [email or web address] Nurse Practitioner Medical Oncology 11/03/21 Additional Source Comments The information contained in this document represents components of the legal health record. It is not the complete legal health record.[facility]
--- OUTSIDE RECORDS SUMMARY | 2025-06-22 07:47 | XMS_ITS | Encounter Summary ---
Author Organization [facility] Address [address] [facility] [address] [place] [address] Phone Care Team Providers Care Wine Steward/Stewardess Name Role Phone Dell Chiang MD Primary Care Provider [phone] Demond Roger MD Unavailable [phone] FeltTianna ng MD Unavailable [phone] Yasmeen Ward MD Unavailable [email or web address] Meghna Parson MD Primary Care Provi vipin Madalyn Rogers MD Primary Care Provide r Meghna Parson MD Primary Care Provi vipin Macho Vincent W DO Unavailable Camila Nayak DIRECTOR DIGITAL CATALOGUE Unavailable [phone] Mile Reynolds MEDICAL TECHNOLOGIST GENERALIST Unavailable Marian Alicia MD Primary Care Provider [phone] Encounter Details Date Type Department Care Team (Late st Contact Info) Description 08/04/2017 Ancillary Orders [address] [address] Meghna Parson MD 6 [place] [address] [email or web address] Social History Tobacco Use Types Packs/Day Years [...] documented as of this encounter Care Teams Wine Steward/Stewardess Relationship Specialty Start Date End Date Dell Chiang MD [address] [facility] [address] [place] [address] PCP - General 02/18/15 08/18/17 Meghna Parson MD [email or web address] PCP - General Internal Medicine 08/19/17 11/29/19 Madalyn Rogers MD [address] [place] [address] PCP - General 11/30/19 12/30/20 Meghna Parson MD [email or web address] PCP - General Internal Medicine 12/31/20 01/04/22 Marian Alicia MD [address] [place] [address], [address] [place] [address] [email or web address] PCP - General Family Medicine 01/05/22 Demond Roger MD [address] [place] [address] [email or web address] Historical LMR Provider 02/24/15 10/21/21 Tianna Coello MD [address] [place] [address] [email or web address] Historical LMR Provider 02/24/15 10/21/21 Yasmeen Ward MD [email or web address] Historical LMR Provider 02/24/1510/21 Macho Vincent DO [address] [place] [address] [email or web address] Primary Oncologist Hematology and Oncology 09/13/21 Camila Nayak FNP [address] [place] [address] [email or web address] Nurse Practitioner Medical Oncology 11/03/21 Mile Reynolds CNP [address] [place] [address] [email or web address] Nurse Practitioner Medical Oncology 11/03/21 documented as of this encounter Additional Source Comments The information contained in this document represents components of the legal health record. It is not the complete legal health record.[facility]
--- OUTSIDE RECORDS SUMMARY | 2025-06-22 07:47 | XMS_ITS | Encounter Summary ---
Author Organization [facility] Address [address] [facility] [address] [place] [address] Phone Care Team Providers Care Certified Retinal Angiographer Name Role Phone Demond Roger MD Unavailable [phone] FeltmateTianna MD Unavailable [phone] Yasmeen Ward MD Unavailable [email or web address] Meghna Parson MD Primary Care Provi vipin CarltonMacho gary W DO Unavailable Camila Nayak COILED TUBING SUPERVISOR Unavailable Gail, Mile EMPLOYEE COMMUNICATIONS COORDINATOR Unavailable Marian Alicia MD Primary Care Provider [phone] Encounter Details Date Type Department Care Team (Late st Contact Info) Description 08/25/2021 Procedure Pass [facility] [address] [place], [place] [id number] Social History Tobacco Use Types Packs/Day Years [...] documented as of this encounter Care Teams Certified Retinal Angiographer Relationship Specialty Start Date End Date Meghna Parsno MD [email or web address] PCP - General Internal Medicine 12/31/20 01/04/22 Marian Alicia MD [address] [place] [address] [email or web address] PCP - General Family Medicine 01/05/22 Demond Roger MD [address] [place] [address] [email or web address] Historical LMR Provider 02/24/15 10/21/21 Tianna Coello MD [address] [place] [address] [email or web address] Historical LMR Provider 02/24/15 10/21/21 Yasmeen Ward MD [email or web address] Historical LMR Provider 02/24/1510/21 Macho Vincent DO [address] [place] [address] [email or web address] Primary Oncologist Hematology and Oncology 09/13/21 Camila Nayak FNP [address] [place] [address] [email or web address] Nurse Practitioner Medical Oncology 11/03/21 Mile Reynolds CNP [address] [place] [address] [email or web address] Nurse Practitioner Medical Oncology 11/03/21 documented as of this encounter Additional Source Comments The information contained in this document represents components of the legal health record. It is not the complete legal health record.[facility]
--- OUTSIDE RECORDS SUMMARY | 2025-06-22 07:47 | XMS_ITS | Encounter Summary ---
Author Organization [facility], Address [address] [place] [address] Phone Care Team Providers Care Breakdown Man Name Role Phone Aretha Bain CANCER REGISTRY COORDINATOR Primary Care Provider [phone] Encounter Details Date Type Department Care Team (Late st Contact Info) Description 08/12/2023 Documentation Only [facility] [place] [address] [place] [phone] Marian Alicia MD [address] [place] [address] 7 [place] [address] Social History Tobacco Use Types Packs/Day Years [...] Visit [facility], [address] [place] [phone] Jamison Avila MD [address] [place] [phone] documented as of this encounter Visit Diagnoses Not on filedocumented in this encounter Care Teams Breakdown Man Relationship Specialty Start Date End Date Aretha Bain NP [address] [facility] 1 [place] [address] PCP - General Nurse Practitioner 04/12/25 documented as of this encounter
--- OUTSIDE RECORDS SUMMARY | 2025-06-22 07:47 | XMS_ITS | Encounter Summary ---
Author Organization [facility] Address [address] [facility] [address] [place] [address] Phone Care Team Providers Care Design Technology Teacher Name Role Phone Demond Roger MD Unavailable [phone] FeltTianna ng MD Unavailable [phone] Yasmeen Ward MD Unavailable [email or web address] Meghna Parson MD Primary Care Provi vipin Madalyn Rogers MD Primary Care Provide r Meghna Parson MD Primary Care Provi vipin Macho Vincent DO Unavailable Camila Nayak FOWL BLOOD TESTER Unavailable Mile Reynolds PEARL DIGGER Unavailable Marian Alicia MD Primary Care Provider [phone] Encounter Details Date Type Department Care Team (Late st Contact Info) Description 09/18/2019 Ancillary Orders [facility], X-Ray - [address] [address] Georgie Olsen MD [address] [place] [phone] [email or web address] Pneumonia due to infectious organism, unspecified laterality, unspecified part of lung Social History Tobacco Use Types Packs/Day Years [...] XR CHEST PA AND LATERAL 2 VIEWS (09/18/2019 9:58 AM EST) Anatomical Region Laterality Modality Chest Radiographic Jessica ging 09/18/2019 10:0 9 AM EST Impressions 09/18/2019 10:11 AM EST Minor left-sided atelectasis or scarring. No other cardiopulmonary pathology. Narrative 09/18/2019 10:11 AM EST PA and lateral chest, 2 views Compare 04/17/2018. There are a few linear densities in the left mid lung field suggesting scarring or atelectasis. No shant infiltrate/consolidation is apparent on either side. No hyperinflation effusion No interstitial disease Normal heart and mediastinal contour. Procedure Note Satya Do MD - 09/18/2019 PA and lateral chest, 2 views Compare 04/17/2018. There are a few linear densities in the left mid lung field suggestingscarring or atelectasis. No shant infiltrate/consolidation is apparent on either side. No hyperinflation effusion No interstitial disease Normal heart and mediastinal contour. IMPRESSION: Minor left-sided atelectasis or scarring. No other cardiopulmonarypathology. us Georgie Olsen MD IMG XR CHEST Final Resul t documented in this encounter Visit Diagnoses Diagnosis Pneumonia due to infectious organism, unspecified laterality, unspecified part of lung Pneumonia due to infectious organism, unspecified laterality, unspecified part of lung documented in this encounter Additional Health Concerns Infection Onset Date Last Indicated Resolved Time CoV-Exposed Comment:Recent close contact documented in the COVID-19 PCR/PRO order 09/25/2021 10/03/2021 10/10/2021 1:[address] CoV-Presumed 10/09/2022 10/09/2022 10/30/2022 1:21 AM EST CoV-Risk 03/01/2023 03/01/2023 03/12/2023 1:22 AM EDT documented as of this encounter Care Teams Design Technology Teacher Relationship Specialty Start Date End Date Meghna Parson MD [email or web address] PCP - General Internal Medicine 08/19/17 11/29/19 Madalyn Rogers MD [address] [place] [address] PCP - General 11/30/19 12/30/20 Meghna Parson MD [email or web address] PCP - General Internal Medicine 12/31/20 01/04/22 Marian Alicia MD [address] [place] [address] 7 [place] [address] [email or web address] PCP - General Family Medicine 01/05/22 Demond Roger MD [address] [place] [address] [email or web address] Historical LMR Provider 02/24/15 10/21/21 Tianna Coello MD [address] [place] [address] [email or web address] Historical LMR Provider 02/24/15 10/21/21 Yasmeen Ward MD [email or web address] Historical LMR Provider 02/24/1510/21 Macho Vincent DO [address] [place] [address] [email or web address] Primary Oncologist Hematology and Oncology 09/13/21 Camila Nayak FNP [address] [place] [address] [email or web address] Nurse Practitioner Medical Oncology 11/03/21 Mile Reynolds CNP [address] [place] [address] [email or web address] Nurse Practitioner Medical Oncology 11/03/21 documented as of this encounter Additional Source Comments The information contained in this document represents components of the legal health record. It is not the complete legal health record.[facility]
--- OUTSIDE RECORDS SUMMARY | 2025-06-22 07:47 | XMS_ITS | Encounter Summary ---
Author Organization [facility] Address [address] [place] [address] Phone Care Team Providers Care Bone Char Kiln Tender Name Role Phone Macho Vincent DO Unavailable Camila Nayak MACHINE GUN MECHANIC Unavailable [phone] [employer] TAP OUT OPERATOR Unavailable Marian Alicia MD Primary Care Provider [phone] Encounter Details Date Type Department Care Team (Late st Contact Info) Description 08/13/2022 Procedure Pass [address] [address] Social History Tobacco Use Types Packs/Day Years [...] Answer Date Recorded Are you interested in help w ith more adult education (for example, completing high school, GED, job training, learning the [place]or[place] language, technical skills, or developing parenting skills)? No 01/08/2022 Food Answer Date Recorded Within the past [...] your housing situation today? I have drake stoner 01/08/2022 How many times have you move [...] basis, and looking for work? No 01/08/2022 Comments No Sex and Gender Information Value [...] CoV-Risk 03/01/2023 03/01/2023 03/12/2023 1:22 AM EDT Assessment Noted Time PHQ-2 Depression Total Score: 1 01/24/20 23 4:10 PM EDT documented as of this encounter Care Teams Bone Char Kiln Tender Relationship Specialty Start Date End Date Marian Alicia MD [address] [place] [address], [facility] 7 [place], [place] [id number] [email or web address] PCP - General Family Medicine 01/05/22 Macho Vincent DO [address] [place] [address] [email or web address] Primary Oncologist Hematology and Oncology 09/13/21 Camila Nayak FNP [address] [place] [address] [email or web address] Nurse Practitioner Medical Oncology 11/03/21 Mile Reynolds CNP [address] [place] [address] [email or web address] Nurse Practitioner Medical Oncology 11/03/21 documented as of this encounter Additional Source Comments The information contained in this document represents components of the legal health record. It is not the complete legal health record.[facility]
--- OUTSIDE RECORDS SUMMARY | 2025-06-22 07:47 | XMS_ITS | Encounter Summary ---
Author Organization [facility] Address [address] [employer] [address] [address] Phone Care Team Providers Care Maintenance Mechanic Helper Name Role Phone Meghna Parson MD Primary Care Provi vipin Macho Vincent W DO Unavailable [phone] Camila Nayak BATTERY WRECKER OPERATOR Unavailable [phone] Pack Mile BLAST FURNACE KEEPER Unavailable Marian Alicia MD Primary Care Provider [phone] Encounter Details Date Type Department Care Team (Late st Contact Info) Description 11/07/2021 Ancillary Orders [facility],Outside Imaging [address] [place], [place] [id number] System, Provider Not In, [place] [address] Social History Tobacco Use Types Packs/Day Years [...] Results * CT Chest Outside (No Interpretation) (08/13/2021 12:00 AM EDT) Narrative SYSTEMGENERATED, DOCUMENTATION - 11/07/2021 11:18 AM EST This study is for PACS [...] documented as of this encounter Care Teams Maintenance Mechanic Helper Relationship Specialty Start Date End Date Meghna Parson MD [email or web address] PCP - General Internal Medicine 12/31/20 01/04/22 Marian Alicia MD [address] [place] [address], [address] [place] [address] [email or web address] PCP - General Family Medicine 01/05/22 Macho Vincent DO [address] [place] [address] [email or web address] Primary Oncologist Hematology and Oncology 09/13/21 Camila Nayak FNP [address] [place] [address] [email or web address] Nurse Practitioner Medical Oncology 11/03/21 Mile Reynolds CNP [address] [place] [address] Nurse Practitioner Medical Oncology 11/03/21 documented as of this encounter Additional Source Comments The information contained in this document represents components of the legal health record. It is not the complete legal health record.[facility]
--- OUTSIDE RECORDS SUMMARY | 2025-06-22 07:47 | XMS_ITS | Encounter Summary ---
Author Organization [facility] Address [address] [facility] [address] [place] [address] Phone Care Team Providers Care Furnace And Wash Equipment Operator Name Role Phone Demond Roger MD Unavailable [phone] FeltTianna ng MD Unavailable [phone] Yasmeen Wrad MD Unavailable [email or web address] Meghna Parson MD Primary Care Provi vipin Madalyn Rogers MD Primary Care Provide r Meghna Parson MD Primary Care Provi vipin Macho Vincent DO Unavailable [phone] Camila Nayak ANALYTICAL LAB ANALYST Unavailable Mile Reynolds LITIGATION ATTORNEY Unavailable Marian Alicia MD Primary Care Provider [phone] Encounter Details Date Type Department Care Team (Late st Contact Info) Description 11/12/2017 Ancillary Orders Virtual Department [address] [place] [address] Meghna Parson MD [address] [place], [place] [phone] [email or web address] History Tobacco Use Types Packs/Day Years [...] documented as of this encounter Care Teams Furnace And Wash Equipment Operator Relationship Specialty Start Date End Date Meghna Parson MD [email or web address] PCP - General Internal Medicine 08/19/17 11/29/19 Madalyn Rogers MD [address] [place] [address] PCP - General 11/30/19 12/30/20 Meghna Parson MD [email or web address] PCP - General Internal Medicine 12/31/20 01/04/22 Marian Alicia MD [address] [place] [address], [address] [place] [address] [email or web address] PCP - General Family Medicine 01/05/22 Demond Roger MD [address] [place] [address] [email or web address] Historical LMR Provider 02/24/15 10/21/21 Tianna Coello MD [address] [place] [address] [email or web address] Historical LMR Provider 02/24/15 10/21/21 Yasmeen Ward MD [email or web address] Historical LMR Provider 02/24/1510/21 Macho Vincent DO [address] [place] [address] [email or web address] Primary Oncologist Hematology and Oncology 09/13/21 Camila Nayak FNP [address] [place] [address] [email or web address] Nurse Practitioner Medical Oncology 11/03/21 Mile Reynolds CNP [address] [place] [address] [email or web address] Nurse Practitioner Medical Oncology 11/03/21 documented as of this encounter Additional Source Comments The information contained in this document represents components of the legal health record. It is not the complete legal health record.[facility]
--- OUTSIDE RECORDS SUMMARY | 2025-06-22 07:47 | XMS_ITS | Encounter Summary ---
Author Organization [facility] Address [address] [facility] [address] [place] [address] Phone Care Team Providers Care Harbor Department Manager Name Role Phone Dell hCiang MD Primary Care Provider [phone] Demond Roger MD Unavailable [phone] FeltTianna ng MD Unavailable [phone] Yasmeen Ward MD Unavailable [email or web address] Meghna Parson MD Primary Care Provi vipin Madalyn Rogers MD Primary Care Provide r Meghna Parson MD Primary Care Provi vipin Macho Vincent W DO Unavailable [phone] Camila Nayak EXTRACTOR PLANT OPERATOR Unavailable [phone] COLOR SHOP HELPER Unavailable Marian Alicia MD Primary Care Provider [phone] Encounter Details Date Type Department Care Team (Late st Contact Info) Description 08/13/2017 Ancillary Orders [facility] Department [address] [place] [address] Meghna Parson MD [address] [place], [place] [phone] [email or web address] Chest discomfort Social History Tobacco Use Types Packs/Day Years [...] documented as of this encounter Results * FL UGI SERIES DOUBLE CONTRAST (09/09/2017 9:13 AM EST) Anatomical Region Laterality Modality Abdomen Radiographic Jessica ging 09/09/2017 8:10 AM EST Impressions 09/09/2017 12:55 PM EST Probable subcentimeter erosions in the pharynx. Small sliding hiatal hernia with mild gastroesophageal reflux. FLUOROSCOPY TIME: 2 min. 36 sec; 37 IMAGES/FRAMES POS - [id number] Edited by: Isis Jalloh on 09/09/2017 10:13 AM Narrative 09/09/2017 12:55 PM EST HISTORY: Indigestion. Sensation of food being stuck in chest. Possible herpetic lesions seen in the pharynx on clinical exam. COMPARISON: None FINDINGS: Vessel Ordinary Seaman AP view of the abdomen shows a nonobstructed bowel gas pattern. No abdominal stones of concern. Lung bases are clear. Double contrast upper GI examination is performed. Patient swallowed effervescent gas crystals and barium contrast material without difficulty with prompt flow into the stomach. One or two subcentimeter filling defects with surrounding barium in the pharynx concerning for erosions. No mucosal lesion involving the esophagus. No evidence of an esophageal mass or significant stricturing. Small sliding hiatal hernia with mild degree of gastroesophageal reflux. Normal esophageal motility. Normal gastric contours and gastric distention. No evidence of a gastric mass or ulceration. No fold thickening. No duodenal abnormality. Procedure Note Cj Redmond MD - 09/09/2017 HISTORY: Indigestion. Sensation of food being stuck in chest. Possibleherpetic lesions seen in the pharynx on clinical exam. COMPARISON: None FINDINGS: Vessel Ordinary Seaman AP view of the abdomen shows a nonobstructed bowel gas pattern. Noabdominal stones of concern. Lung bases are clear. Double contrast upper GI examination is performed. Patient swallowedeffervescent gas crystals and barium contrast material without difficultywith prompt flow into the stomach. One or two subcentimeter filling defects with surrounding barium in thepharynx concerning for erosions. No mucosal lesion involving theesophagus. No evidence of an esophageal mass or significant stricturing.Small sliding hiatal hernia with mild degree of gastroesophageal reflux.Normal esophageal motility. Normal gastric contours and gastric distention. No evidence of a gastricmass or ulceration. No fold thickening. No duodenal abnormality. IMPRESSION: Probable subcentimeter erosions in the pharynx. Small sliding hiatal hernia with mild gastroesophageal reflux. FLUOROSCOPY TIME: 2 min. 36 sec; 37 IMAGES/FRAMES POS - [id number] Edited by: Isis Jalloh on 09/09/2017 10:13 AM Meghna Parson MD IMG FL MISC Fin al Result documented in this encounter Visit Diagnoses Diagnosis Chest discomfort Other chest pain Chest discomfort Other chest pain documented in this encounter Additional Health Concerns Infection Onset Date Last Indicated Resolved Time CoV-Exposed Comment:Recent close contact documented in the COVID-19 PCR/PRO order 09/25/2021 10/03/2021 10/10/2021 1:[address] CoV-Presumed 10/09/2022 10/09/2022 10/30/2022 1:21 AM EST CoV-Risk 03/01/2023 03/01/2023 03/12/2023 1:22 AM EDT documented as of this encounter Care Teams Harbor Department Manager Relationship Specialty Start Date End Date Dell Chiang MD [address] [place] [address] PCP - General 02/18/15 08/18/17 Meghna Parson MD [email or web address] PCP - General Internal Medicine 08/19/17 11/29/19 Madalyn Rogers MD [address] [place] [address] PCP - General 11/30/19 12/30/20 Meghna Parson MD [email or web address] PCP - General Internal Medicine 12/31/20 01/04/22 Marian Alicia MD [address] [place] [address] 7 [place] [address] [email or web address] PCP - General Family Medicine 01/05/22 Demond Roger MD [address] [place] [address] [email or web address] Historical LMR Provider 02/24/15 10/21/21 Tianna Coello MD [address] [place] [address] [email or web address] Historical LMR Provider 02/24/15 10/21/21 Yasmeen Ward MD [email or web address] Historical LMR Provider 02/24/1510/21 Macho Vincent DO [address] [place] [address] [email or web address] Primary Oncologist Hematology and Oncology 09/13/21 Camila Nayak FNP [address] [place] [address] [email or web address] Nurse Practitioner Medical Oncology 11/03/21 Mile Reynolds CNP [address] [place], [place] [id number] [email or web address] Nurse Practitioner Medical Oncology 11/03/21 documented as of this encounter Additional Source Comments The information contained in this document represents components of the legal health record. It is not the complete legal health record.[facility]
--- OUTSIDE RECORDS SUMMARY | 2025-06-22 07:47 | XMS_ITS | Encounter Summary ---
Author Organization [facility] Address [address] [facility] [address] [place] [address] Phone Care Team Providers Care Director Of Acquisition Marketing Name Role Phone Demond Roger MD Unavailable [phone] FeltmateTianna MD Unavailable [phone] Yasmeen Ward MD Unavailable [email or web address] Meghna Parson MD Primary Care Provi vipin CarltonMacho gary W DO Unavailable [phone] Camila Nayak AMPOULE FILLER AND SEALER Unavailable GailTristanen FUR STORAGE CLERK Unavailable Marian Alicia MD Primary Care Provider [phone] Encounter Details Date Type Department Care Team (Late st Contact Info) Description 10/10/2021 Ancillary Orders Virtual Department [address] [place] [address] Meghna Parson MD [address] [place], [place] [id number] [email or web address] Low back pain, unspecified back pain laterality, unspecified chronicity, unspecified whether sciatica present; RUQ pain Social History Tobacco Use Types Packs/Day Years [...] as of this encounter Results * US ABDOMEN LIMITED RIGHT UPPER QUADRANT (10/11/2021 10:30 AM EST) Anatomical Region Laterality Modality Abdomen Ultrasound 10/11/2021 10:3 7 AM EST Impressions 10/11/2021 10:38 AM EST 1.No acute findings. 2.Hepatic steatosis. Narrative 10/11/2021 10:38 AM EST COMPARISON: None. LIMITED ABDOMEN ULTRASOUND FINDINGS: Liver: Diffusely echogenic. No focal lesions. Gallbladder: Normal. Common bile duct: Normal-4 mm. Pancreas: Imaged pancreas is normal. The pancreatic tail is obscured by bowel gas. Right Kidney: No hydronephrosis. Proximal abdominal aorta/IVC/Main Portal Vein: Unremarkable. Procedure Note Ricardo Sawyer MD - 10/11/2021 COMPARISON: None. LIMITED ABDOMEN ULTRASOUND FINDINGS: Liver: Diffusely echogenic. No focal lesions. Gallbladder: Normal. Common bile duct: Normal-4 mm. Pancreas: Imaged pancreas is normal. The pancreatic tail is obscured bybowel gas. Right Kidney: No hydronephrosis. Proximal abdominal aorta/IVC/Main Portal Vein: Unremarkable. IMPRESSION: 1.No acute findings. 2.Hepatic steatosis. Meghna Parson MD IMG US ABDOMEN Fin al Result documented in this encounter Visit Diagnoses Diagnosis Low back pain, unspecified back pain laterality, unspecified chronicity, unspecified whether sciatica present RUQ pain Abdominal pain, right upper quadrant Low back pain, unspecified back pain laterality, unspecified chronicity, unspecified whether sciatica present RUQ pain Abdominal pain, right upper quadrant documented in this encounter Additional Health Concerns Infection Onset Date Last Indicated Resolved Time CoV-Exposed Comment:Recent close contact documented in the COVID-19 PCR/PRO order 09/25/2021 10/03/2021 10/10/2021 1:[address] CoV-Presumed 10/09/2022 10/09/2022 10/30/2022 1:21 AM EST CoV-Risk 03/01/2023 03/01/2023 03/12/2023 1:22 AM EDT documented as of this encounter Care Teams Director Of Acquisition Marketing Relationship Specialty Start Date End Date Meghna Parson MD [email or web address] PCP - General Internal Medicine 12/31/20 01/04/22 Marian Alicia MD [address] [place] [address] 7 [place] [address] [email or web address] PCP - General Family Medicine 01/05/22 Demond Roger MD [address] [place] [address] [email or web address] Historical LMR Provider 02/24/15 10/21/21 Tianna Coello MD [address] [place] [address] [email or web address] Historical LMR Provider 02/24/15 10/21/21 Yasmeen Ward MD [email or web address] Historical LMR Provider 02/24/1510/21 Macho Vincent DO [address] [place] [address] [email or web address] Primary Oncologist Hematology and Oncology 09/13/21 Camila Nayak FNP [address] [place] [address] [email or web address] Nurse Practitioner Medical Oncology 11/03/21 Mile Reynolds CNP [address] [place] [address] [email or web address] Nurse Practitioner Medical Oncology 11/03/21 documented as of this encounter Additional Source Comments The information contained in this document represents components of the legal health record. It is not the complete legal health record.[facility]
--- OUTSIDE RECORDS SUMMARY | 2025-06-22 07:47 | XMS_ITS | Encounter Summary ---
Author Organization [facility] Address [address] [facility] [address] [place] [address] Phone Care Team Providers Care Chili Powder Mixer Name Role Phone Dell Chiang MD Primary Care Provider [phone] Demond Roger MD Unavailable [phone] FeltTianna ng MD Unavailable [phone] Yasmeen Ward MD Unavailable [email or web address] Meghna Parson MD Primary Care Provi vipin Madalyn Rogers MD Primary Care Provide r Meghna Parson MD Primary Care Provi vipin Macho Vincent W DO Unavailable Camila Nayak BOOT REPAIRER Unavailable [phone] FILTER PRESS OPERATOR Unavailable Marian Alicia MD Primary Care Provider [phone] Encounter Details Date Type Department Care Team (Late st Contact Info) Description 08/04/2017 Ancillary Orders [address] [address] Meghna Parson MD 6 [place] [address] [email or web address] Social History Tobacco Use Types Packs/Day Years [...] documented as of this encounter Care Teams Chili Powder Mixer Relationship Specialty Start Date End Date Dell Chiang MD [address] [facility] [address] [place] [address] PCP - General 02/18/15 08/18/17 Meghna Parson MD [email or web address] PCP - General Internal Medicine 08/19/17 11/29/19 Madalyn Rogers MD [address] [place] [address] PCP - General 11/30/19 12/30/20 Meghna Parson MD [email or web address] PCP - General Internal Medicine 12/31/20 01/04/22 Marian Alicia MD [address] [place] [address], [address] [place] [address] [email or web address] PCP - General Family Medicine 01/05/22 Demond Roger MD [address] [place] [address] [email or web address] Historical LMR Provider 02/24/15 10/21/21 Tianna Coello MD [address] [place] [address] [email or web address] Historical LMR Provider 02/24/15 10/21/21 Yasmeen Ward MD [email or web address] Historical LMR Provider 02/24/1510/21 Macho Vincent DO [address] [place] [address] [email or web address] Primary Oncologist Hematology and Oncology 09/13/21 Camila Nayak FNP [address] [place] [address] [email or web address] Nurse Practitioner Medical Oncology 11/03/21 Mile Reynolds CNP [address] [place] [address] [email or web address] Nurse Practitioner Medical Oncology 11/03/21 documented as of this encounter Additional Source Comments The information contained in this document represents components of the legal health record. It is not the complete legal health record.[facility]
--- OUTSIDE RECORDS SUMMARY | 2025-06-22 07:47 | XMS_ITS | Encounter Summary ---
Author Organization [facility] Address [address] [facility] [address] [place] [address] Phone Care Team Providers Care Coating Inspector Name Role Phone Demond Roger MD Unavailable [phone] FeltTianna ng MD Unavailable [phone] Yasmeen Ward MD Unavailable [email or web address] Meghna Parson MD Primary Care Provi vipin Madalyn Rogers MD Primary Care Provide r Meghna Parson MD Primary Care Provi vipin Macho Vincent DO Unavailable Camila Nayak BEER RUNNER Unavailable [phone] BELT PRESS OPERATOR Unavailable Marian Alicia MD Primary Care Provider [phone] Encounter Details Date Type Department Care Team (Late st Contact Info) Description 03/03/2018 Ancillary Orders [facility], X-Ray - [address] [address] SabasLondon MD [address] [facility] [address] [place], [place] [id number] [email or web address] Dyspnea, unspecified type Social History Tobacco Use Types Packs/Day Years [...] XR CHEST PA AND LATERAL 2 VIEWS (03/03/2018 12:57 PM EDT) Anatomical Region Laterality Modality Chest Radiographic Jessica ging 03/03/2018 12:5 9 PM EDT Impressions 03/03/2018 1:03 PM EDT No evidence of an acute cardiopulmonary process. POS - [id number] Narrative 03/03/2018 1:03 PM EDT HISTORY: Cough, shortness of breath, chest tightness COMPARISON: Multiple prior most recent 12/10/2016 FINDINGS: PA and lateral views of the chest are performed. No focal infiltrate, pleural effusion, or evidence of pulmonary edema. No pneumothorax detected. Heart and mediastinal contours are within normal limits. Stable mild anterior wedging of a few contiguous mid thoracic vertebral bodies. No new compression deformities. Old right lower rib fracture deformities. Procedure Note Cj Redmond MD - 03/03/2018 HISTORY: Cough, shortness of breath, chest tightness COMPARISON: Multiple prior most recent 12/10/2016 FINDINGS: PA and lateral views of the chest are performed. No focal infiltrate,pleural effusion, or evidence of pulmonary edema. No pneumothoraxdetected. Heart and mediastinal contours are within normal limits.Stable mild anterior wedging of a few contiguous mid thoracic vertebralbodies. No new compression deformities. Old right lower rib fracturedeformities. IMPRESSION: No evidence of an acute cardiopulmonary process. POS - [id number] London Obregon MD IMG XR CHEST Final Result documented in this encounter Visit Diagnoses Diagnosis Dyspnea, unspecified type Dyspnea, unspecified type documented in this encounter Additional Health Concerns Infection Onset Date Last Indicated Resolved Time CoV-Exposed Comment:Recent close contact documented in the COVID-19 PCR/PRO order 09/25/2021 10/03/2021 10/10/2021 1:[address] CoV-Presumed 10/09/2022 10/09/2022 10/30/2022 1:21 AM EST CoV-Risk 03/01/2023 03/01/2023 03/12/2023 1:22 AM EDT documented as of this encounter Care Teams Coating Inspector Relationship Specialty Start Date End Date Meghna Parson MD [email or web address] PCP - General Internal Medicine 08/19/17 11/29/19 Madalyn Rogers MD [address] [place] [address] PCP - General 11/30/19 12/30/20 Meghna Parson MD [email or web address] PCP - General Internal Medicine 12/31/20 01/04/22 Marian Alicia MD [address] [place] [address] 7 [place] [address] [email or web address] PCP - General Family Medicine 01/05/22 Demond Roger MD [address] [place] [address] [email or web address] Historical LMR Provider 02/24/15 10/21/21 Tianna Coello MD [address] [place] [address] [email or web address] Historical LMR Provider 02/24/15 10/21/21 Yasmeen Ward MD [email or web address] Historical LMR Provider 02/24/1510/21 Macho Vincent DO [address] [place] [address] [email or web address] Primary Oncologist Hematology and Oncology 09/13/21 Camila Nayak FNP [address] [place] [address] [email or web address] Nurse Practitioner Medical Oncology 11/03/21 Mile Reynolds CNP [address] [place] [address] [email or web address] Nurse Practitioner Medical Oncology 11/03/21 documented as of this encounter Additional Source Comments The information contained in this document represents components of the legal health record. It is not the complete legal health record.[facility]
--- OUTSIDE RECORDS SUMMARY | 2025-06-22 07:47 | XMS_ITS | Encounter Summary ---
Author Organization [facility] Address [address] [place] [address] Phone Care Team Providers Care Search Developer Name Role Phone Macho Vincent DO Unavailable Camila Nayak SALES TRADER Unavailable [phone] [employer] ACCOUNTING SUPERVISOR Unavailable Marian Alicia MD Primary Care Provider [phone] Encounter Details Date Type Department Care Team (Late st Contact Info) Description 03/01/2023 Procedure [facility], Ct Scan - [address] [address] Social History Tobacco Use Types Packs/Day Years [...] high school, GED, job training, learning the Sammarinese language, technical skills, or developing parenting skills)? [...] basis, and looking for work? No 01/08/2022 Intimate Partner Violence Answer Date R ecorded [...] on file documented as of this encounter Functional Status * Calculated C-SSRS Risk Score (Lifetime/Recent) Answer Date of Assessment Author No Risk Indicated 03/01/2023 3:51 PM EDT Yanick Gonzales, ZOEY * [place] Suicide Severity Rating Scale (Screener/Recent Self-Report) Question Answer Date of Assessment Author 1. Wish to be (Past 1 Month) No 023 3:51 PM EDT Yanick Gonzales, RN 2. Non-Specific Active Suici maru Thoughts (Past 1 Month) No 03/01/2023 3:51 PM EDT Estuardo Gonzales RN documented as of this encounter Plan of Treatment Not on file documented as of this encounter Visit Diagnoses Not on filedocumented in this encounter Additional Health Concerns Infection Onset Date Last Indicated Resolved Time CoV-Risk 03/01/2023 03/01/2023 03/12/2023 1:22 AM EDT Assessment Noted Time PHQ-2 Depression Total Score: 1 01/24/20 23 4:10 PM EDT documented as of this encounter Care Teams Search Developer Relationship Specialty Start Date End Date Marian Alicia MD [address] [place] [address], [address] [place] [address] [email or web address] PCP - General Family Medicine 01/05/22 Macho Vincent DO [address] [place] [address] [email or web address] Primary Oncologist Hematology and Oncology 09/13/21 Camila Nayak FNP [address] [place] [address] [email or web address] Nurse Practitioner Medical Oncology 11/03/21 Mile Reynolds CNP [address] [place] [address] [email or web address] Nurse Practitioner Medical Oncology 11/03/21 documented as of this encounter Additional Source Comments The information contained in this document represents components of the legal health record. It is not the complete legal health record.[facility]
--- OUTSIDE RECORDS SUMMARY | 2025-06-22 07:47 | XMS_ITS | Encounter Summary ---
Author Organization [facility], Address [address] [place] [address] Phone Care Team Providers Care Technology And Engineering Teacher Name Role Phone Aretha Bain PORTABLE MACHINE CUTTER Primary Care Provider [phone] Encounter Details Date Type Department Care Team (Late st Contact Info) Description 08/12/2023 Documentation Only [facility] - [place]ie [address] [place] [phone] Marian Alicia MD [address] [place] [address] 7 [place] [address] Social History Tobacco Use Types Packs/Day Years [...] Visit [facility], [address] [place] [phone] Jamison Avila MD [address] [place] [phone] documented as of this encounter Visit Diagnoses Not on filedocumented in this encounter Care Teams Technology And Engineering Teacher Relationship Specialty Start Date End Date Aretha Bain NP [address] [facility] [address] [place] [address] PCP - General Nurse Practitioner 04/12/25 documented as of this encounter
--- OUTSIDE RECORDS SUMMARY | 2025-06-22 07:47 | XMS_ITS | Encounter Summary ---
Author Organization [facility] Address [address] [facility] [address] [place] [address] Phone Care Team Providers Care Airport Skilled Maintenance Supervisor Name Role Phone Demond Roger MD Unavailable [phone] FeltmateTianna MD Unavailable [phone] Yasmeen Ward MD Unavailable [email or web address] Meghna Parson MD Primary Care Provi vipin CarltonMacho gary W DO Unavailable Camila Nayak SOCIAL ORGANIZATION PROFESSOR Unavailable Pack, Mile CUSTOMER CARE CONSULTANT Unavailable Marian Alicia MD Primary Care Provider [phone] Encounter Details Date Type Department Care Team (Late st Contact Info) Description 10/03/2021 Transcribe Orders Virtual Department [address] [place] [address] Meghna Parson MD [address] [place], [place] [id number] [email or web address] Exposure to COVID-19 virus (Primary Dx) Social History Tobacco Use Types [...] documented as of this encounter Results * COVID-19 PCR Order (10/04/2021 12:58 PM EST) COVID Testing Status Specimen received in analyzing lab. Results should be available within 24 to 48 hrs. [facility] Symptomatic? NO [facility] Other 10/04/2021 12:5 8 PM EST 10/04/2021 2:19 PM EST us Meghna Parson MD BODY FLUIDS AND STO OLS ORDERABLES Final Result Performing Organization Address City/State/[facility] Co de Phone Number [address] [address] [facility] [address] [place] [address] documented in this encounter Visit Diagnoses Diagnosis Exposure to COVID-19 virus- Primary documented in this encounter Additional Health Concerns Infection Onset Date Last Indicated Resolved Time CoV-Exposed Comment:Recent close contact documented in the COVID-19 PCR/PRO order 09/25/2021 10/03/2021 10/10/2021 1:[address] CoV-Presumed 10/09/2022 10/09/2022 10/30/2022 1:21 AM EST CoV-Risk 03/01/2023 03/01/2023 03/12/2023 1:22 AM EDT documented as of this encounter Care Teams Airport Skilled Maintenance Supervisor Relationship Specialty Start Date End Date Meghna Parson MD [email or web address] PCP - General Internal Medicine 12/31/20 01/04/22 Marian Alicia MD [address] [place] [address], [address] [place] [address] [email or web address] PCP - General Family Medicine 01/05/22 eDmond Roger MD [address] [place] [address] [email or web address] Historical LMR Provider 02/24/15 10/21/21 Tianna Coello MD [address] [place] [address] [email or web address] Historical LMR Provider 02/24/15 10/21/21 Yasmeen Ward MD [email or web address] Historical LMR Provider 02/24/1510/21 Macho Vincent DO [address] [place] [address] [email or web address] Primary Oncologist Hematology and Oncology 09/13/21 Camila Nayak FNP [address] [place] [address] [email or web address] Nurse Practitioner Medical Oncology 11/03/21 Mile Reynolds CNP [address] [place] [address] [email or web address] Nurse Practitioner Medical Oncology 11/03/21 documented as of this encounter Additional Source Comments The information contained in this document represents components of the legal health record. It is not the complete legal health record.[facility]
--- OUTSIDE RECORDS SUMMARY | 2025-06-22 07:48 | XMS_ITS | Encounter Summary ---
Author Organization [facility] Address [address] [facility] [address] [place] [address] Phone Care Team Providers Care Dedicated Intermodal Truck Driver Name Role Phone Demond Roger MD Unavailable [phone] FeltmateTianna MD Unavailable [phone] Yasmeen Ward MD Unavailable [email or web address] Meghna Parson MD Primary Care Provi vipin CarltonMacho gary W DO Unavailable Camila Nayak SENIOR GENETIC COUNSELOR Unavailable Gail, Mile SECURITY AUDITOR Unavailable Marian Alicia MD Primary Care Provider [phone] Encounter Details Date Type Department Care Team (Late st Contact Info) Description 05/22/2021 Ancillary Orders [facility], X-Ray - [address] [address] [place], London Verde MD [address] [facility] [address] [place], [place] [id number] [email or web address] Erythema Social History Tobacco Use Types Packs/Day Years [...] XR CHEST PA AND LATERAL 2 VIEWS (05/22/2021 12:50 PM EDT) Anatomical Region Laterality Modality Chest Computed Radiogr aphy 05/22/2021 12:5 3 PM EDT Impressions 05/22/2021 12:54 PM EDT No acute abnormality. Narrative 05/22/2021 12:54 PM EDT XR CHEST PA AND LATERAL 2 VIEWS COMPARISON: September 18, 2019 FINDINGS: Devices/Tubes/Lines: None. Lungs: Normal. The lungs are clear. No focal consolidation or pulmonary edema. Pleura: Normal. No pleural effusion or pneumothorax. Heart/Mediastinum: Normal heart and mediastinum. Bones/Soft Tissues: No significant skeletal abnormality. Procedure Note Chely Grace MD - 05/22/2021 XR CHEST PA AND LATERAL 2 VIEWS COMPARISON: September 18, 2019 FINDINGS: Devices/Tubes/Lines: None. Lungs: Normal. The lungs are clear. No focal consolidation or pulmonaryedema. Pleura: Normal. No pleural effusion or pneumothorax. Heart/Mediastinum: Normal heart and mediastinum. Bones/Soft Tissues: No significant skeletal abnormality. IMPRESSION: No acute abnormality. London Obregon MD IMG XR CHEST Final Result documented in this encounter Visit Diagnoses Diagnosis Erythema Unspecified erythematous condition Erythema Unspecified erythematous condition documented in this encounter Additional Health Concerns Infection Onset Date Last Indicated Resolved Time CoV-Exposed Comment:Recent close contact documented in the COVID-19 PCR/PRO order 09/25/2021 10/03/2021 10/10/2021 1:[address] CoV-Presumed 10/09/2022 10/09/2022 10/30/2022 1:21 AM EST CoV-Risk 03/01/2023 03/01/2023 03/12/2023 1:22 AM EDT documented as of this encounter Care Teams Dedicated Intermodal Truck Driver Relationship Specialty Start Date End Date Meghna Parson MD [email or web address] PCP - General Internal Medicine 12/31/20 01/04/22 Marian Alicia MD [address] [place] [address] 7 [place] [address] [email or web address] PCP - General Family Medicine 01/05/22 Demond Roger MD [address] [place] [address] [email or web address] Historical LMR Provider 02/24/15 10/21/21 Tianna Coello MD [address] [place] [address] [email or web address] Historical LMR Provider 02/24/15 10/21/21 Yasmeen Ward MD [email or web address] Historical LMR Provider 02/24/1510/21 Macho Vincent DO [address] [place] [address] [email or web address] Primary Oncologist Hematology and Oncology 09/13/21 Camila Nayak FNP [address] [place] [address] [email or web address] Nurse Practitioner Medical Oncology 11/03/21 Mile Reynolds CNP [address] [place], [place] [phone] [email or web address] Nurse Practitioner Medical Oncology 11/03/21 documented as of this encounter Additional Source Comments The information contained in this document represents components of the legal health record. It is not the complete legal health record.[facility]
--- OUTSIDE RECORDS SUMMARY | 2025-06-22 07:48 | XMS_ITS | Clinical Summary ---
Author Organization [address] [facility] Address [address] [place] [address] Phone Care Team Providers Care Curing Press Maintainer Name Role Phone Aretha Bani NP Primary Care Provider Family History Medical History Relation Name Comments [...] on file Obstetrics History Plan of Treatment Health Maintenance Due Date [...] 09/22/2022 Social Influencers of Health Screening 09/22/2022 Depression Screening 10/14/2024 COVID-19 Vaccine (1 - 2023-2 5 season) 2025 Influenza Vaccine (#1) 2025 RSV Immunization Adult [...] patient's age to complete this topic Insurance * Guarantor: Germania Luz Account Type Relation to Patient Date of Phone Billing Address Personal/Family Self 1965 [phone] (Work) [address] [place] [place] [address] MEDICAID - [place] Care Teams Curing Press Maintainer Relationship Specialty Start Date End Date Aretha Bain NP [address] [place] [phone] PCP - General Nurse Practitioner 03/02/25
--- OUTSIDE RECORDS SUMMARY | 2025-06-22 07:48 | XMS_ITS | Encounter Summary ---
Author Organization [facility] Address [address] [facility] [address] [place] [address] Phone Care Team Providers Care Scheduling Specialist Name Role Phone Demond Roger MD Unavailable [phone] FeltTianna ng MD Unavailable [phone] Yasmeen Ward MD Unavailable [email or web address] Meghna Parson MD Primary Care Provi vipin Madalyn Rogers MD Primary Care Provide r Meghna Parson MD Primary Care Provi vipin Macho Vincent DO Unavailable Camila Nayak ASSOCIATE CIVIL ENGINEER Unavailable [phone] Mile Reynolds CUSTOMS BROKERAGE AGENT Unavailable Marian Alicia MD Primary Care Provider [phone] Encounter Details Date Type Department Care Team (Late st Contact Info) Description 10/24/2017 Transcribe Orders [facility] [address] [place] [address] Bairon Aparicio MD, [place] [address] [id number] [email or web address] Social History Tobacco Use Types Packs/Day Years [...] documented as of this encounter Care Teams Scheduling Specialist Relationship Specialty Start Date End Date Meghna Parson MD [email or web address] PCP - General Internal Medicine 08/19/17 11/29/19 Madalyn Rogers MD [address] [place] [address] PCP - General 11/30/19 12/30/20 Meghna Parson MD [email or web address] PCP - General Internal Medicine 12/31/20 01/04/22 Marian Alicia MD [address] [place] [address], [address] [place] [address] PCP - General Family Medicine 01/05/22 Demond Roger MD [address] [place] [address] [email or web address] Historical LMR Provider 02/24/15 10/21/21 Tianna Coello MD [address] [place] [address] [email or web address] Historical LMR Provider 02/24/15 10/21/21 Yasmeen Ward MD [email or web address] Historical LMR Provider 02/24/1510/21 Macho Vincent DO [address] [place] [address] [email or web address] Primary Oncologist Hematology and Oncology 09/13/21 Camila Nayak FNP [address] [place] [address] [email or web address] Nurse Practitioner Medical Oncology 11/03/21 Mile Reynolds CNP [address] [place] [address] [email or web address] Nurse Practitioner Medical Oncology 11/03/21 documented as of this encounter Additional Source Comments The information contained in this document represents components of the legal health record. It is not the complete legal health record.[facility]
--- OUTSIDE RECORDS SUMMARY | 2025-06-22 07:48 | XMS_ITS | Encounter Summary ---
Author Organization [facility] Address [address] [facility] [address] [place] [address] Phone Care Team Providers Care Pharmacist'S Aide Name Role Phone Macho Vincent DO Unavailable Camila Nayak TEACHER EDUCATION DIRECTOR Unavailable [phone] PackMile BOTTLE BLOWER Unavailable Marian Alicia MD Primary Care Provider [phone] Reason for Visit * Reason Onset Date Comments Appointment 06/03/2025 Encounter Details Date Type Department Care Team (Late st Contact Info) Description 06/03/2025 Telephone [facility] [employer] [facility] [address] [place], [place] [phone] Unknown, Unknown, Appointment Social History Tobacco Use Types Packs/Day Years [...] on file documented as of this encounter Progress Notes * Marian Choi - 06/03/2025 9:32 AM EDT PT lvm on 06/02 requesting a call back to go over information on getting a consult with the weight loss dept. Central Support Owner/Photographer (Please do not reply to this user; this inbox is not monitored.) Thank you. documented in this encounter Plan of Treatment Not on file documented as of this encounter Visit Diagnoses Not on filedocumented in this encounter Additional Health Concerns Assessment Noted Time PHQ-2 Depression Total Score: 1 01/24/20 23 4:10 PM EDT documented as of this encounter Care Teams Pharmacist'S Aide Relationship Specialty Start Date End Date Marian Alicia MD [address] [place] [address], [address] [place] [address] [email or web address] PCP - General Family Medicine 01/05/22 Macho Vincent DO [address] [place] [address] [email or web address] Primary Oncologist Hematology and Oncology 09/13/21 Camila Nayak FNP [address] [place] [address] Nurse Practitioner Medical Oncology 11/03/21 Mile Reynolds CNP [address] [place] [address] Nurse Practitioner Medical Oncology 11/03/21 documented as of this encounter Additional Source Comments The information contained in this document represents components of the legal health record. It is not the complete legal health record.[facility]
== END 2025-06-22 07:41 | disposition home or self-care (01) ==
LOC: HO.US 07:40
PROVIDERS: PCP Nurse Practitioner Family; Visit Provider Surgery
DX: E66.01 Morbid (severe) obesity due to excess calories (principal); Z68.43 Body mass index [BMI] 50.0-59.9, adult; K21.9 Gastro-esophageal reflux disease without esophagitis; I10 Essential (primary) hypertension
CPT/HCPCS: 76700; 76981

== ENCOUNTER → 2025-06-22 07:42 | Outpatient (BNV) | payer OTHER, SELFPAY | PROVIDERS: PCP Nurse Practitioner Family; Visit Provider Radiology Diagnostic Radiology | DX: E66.01 Morbid (severe) obesity due to excess calories (principal); K76.0 Fatty (change of) liver, not elsewhere classified | CPT/HCPCS: 76700 ==

== ENCOUNTER 2025-06-25 08:35 | Outpatient (AMB) | payer OTHER, SELFPAY ==
[2025-06-25 00:13] VITALS: BMI 50.9
--- NOTE | 2025-06-25 00:13 | MHC.OFFVISWM ---
VS Expanded 06/25/25 00:13 Height 5 ft 3 in Weight 287 lb 8 oz BMI 50.9 Body Fat % 70.8 Body Fat Mass 203.7 Fat Free Mass 84 Visceral Fat Rating 30 Body Water % 20 Body Water Mass 57.5 Basal Metabolic Rate/Score 1,193 Intake Visit Reasons: TV Pre Op LSG 07/06/25 Allergies ciprofloxacin Allergy (Verified 06/25/25 00:24) rash nitrofurantoin (From Macrobid) Allergy (Verified 06/25/25 00:24) rash Sulfa (Sulfonamide Antibiotics) Allergy (Verified 06/25/25 00:24) rash quetiapine (From Seroquel) Adverse Reaction (Verified 06/25/25 00:24) suicidal ideation Medication List - Last Reconciled 06/25/25 by Jarvis Mccarthy MD clonazepam 1 tab PO TID clonidine HCl 1 tab PO TID fondaparinux 2.5 mg (0.5 mL) subcut Q24H fondaparinux 2.5 mg (0.5 mL) subcut Q24H lamotrigine 1 tab PO DAILY losartan 100 mg PO DAILY omeprazole 40 mg PO DAILY ondansetron 4 mg PO Q12H pantoprazole 40 mg PO DAILY polyethylene glycol 3350 17 grams PO DAILY risperidone 0.5 mg PO BID risperidone 1 mg PO BID sucralfate 10 mL PO BID thiamine HCl (vitamin B1) 100 mg PO DAILY tirzepatide (weight loss) (Zepbound) 2.5 mg (0.5 mL) subcut QWEEK tirzepatide (weight loss) (Zepbound) 5 mg (0.5 mL) subcut QWEEK venlafaxine ER 1 cap PO DAILY 30 days [vitamin d 3 PO] warfarin 5 mg PO DAILY HPI HPI TV Pre Op LSG 07/06/25: Details: Start time: 3pm, End time: 3.30pm I spent 25 minutes speaking with the patient on the phone plus an additional 5 minutes reviewing and updating records for a total of 30 minutes HPI Comments Details: Overall weight loss: Is doing 2 half bottles of Fairlife, 4 Zone Perfect bars and one meal (11 forks each) Exercise: stationary bike for 300 calories daily PFSH Medical History DJD (degenerative joint disease) Morbid obesity with BMI of 50.0-59.9, adult Sleep apnea treated with continuous positive airway pressure (CPAP) 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 DVT (deep venous thrombosis) History of sciatica NIURKA (generalized anxiety disorder) MDD (major depressive disorder), recurrent severe, without psychosis GERD (gastroesophageal reflux disease) Common variable immunodeficiency Hypertension Anxiety Depression PTSD (post-traumatic stress disorder) Surgical History (Updated 05/26/25 @ 10:04 by Beverly Martinez RN) H/O colonoscopy History of esophagogastroduodenoscopy (EGD) History of inferior vena caval filter placement History of hysterectomy Family History (Updated 04/06/25 @ 08:57 by Skye Stewart CMA) Mother Thyroid condition Acute ITP Anxiety Depression Father CHF (congestive heart failure) Enlarged heart Stomach cancer Social History Household Members: None Housing: Apartment Do you presently have visiting nurse or other home services: No Alcohol intake: never Comment: Pt is A&O and ambulates independently w/walker Patient Tobacco Use Status: Never used Tobacco service: No Current occupational status: employed Sexual orientation: did not discuss. Physical Exam Vital Signs: BMI result Body Mass Index 50.9 Telehealth Telehealth Telehealth Platform: Telephone Location of provider rendering services: practice address Location of patient: address on file Patient Identification confirmed using: Name, : Yes Telehealth method: voice only Patient verbally consented to treatment: Yes Patient verbally consented to billing insurance company: Yes Patient informed of any privacy concerns related to visit: Yes Minutes spent on Phone/Video with Pt.: 30 Assessment & Plan Assessment & Plan (1) Morbid obesity with BMI of 50.0-59.9, adult: Code(s): E66.01 - Morbid (severe) obesity due to excess calories; Z68.43 - Body mass index [BMI] 50.0-59.9, adult Category: Medical Plan: 1. Plan for lap sleeve gastrectomy including upper GI endoscopy. All tests has been completed and reviewed and the patient is cleared for the surgery. If diaphragmatic or ventral hernias are present at time of surgery, these will be repaired laparoscopically as well. The surgery does not replace the need to change your lifestlyle which is the cause of the obesity problem. The surgery provides the motivation to try again to change your lifestyle, it reduces the appetite and make the transition to a better lifestyle easier and doubles the amount of weight you would lose compared to doing the lifestyle change without the surgery. You will need to be on a liquid diet with protein shakes for 2 weeks before surgery to maximize weight loss and boost your nutritional status to recover better from surgery and also for the first two weeks after surgery to let the stomach heal before we introduce other foods. After the first 2 weeks we will introduce protein bars and soft foods like scrambled eggs, cottage cheese and yogurt and after the 6th week will introduce meat, fish and cooked vegetables in small amounts. Over time you should be able to eat everything in small amounts. Side effects like nausea, vomiting, heartburn or abdominal pain are not common in the practice unless you are not following in the practice. This operation requires lifetime commitment to following in our practice and communication with me. You will much less weight and experience side effects if you don?t communicate or not following in the practice. Complications are rare and in our practice is about 1/10 of the national average. However, you can develop bleeding that may require transfusion (hasn?t happened for year in the practice), you may from complications (we did not have any deaths in the practice) and infections. Infections are usually a result of breakdown in communication or not understanding or following directions correctly. They are difficult to treat, they can happen during the first 6 weeks, they may require to be in the hospital for weeks or even months, not being able to eat by mouth and you may have drains and surgeries to try and correct the issue. Other risks and complications include possible conversion to an open procedure, leaks, small bowel obstruction, blood clots, cardiac, or pulmonary complications, as long term care administrator complications such as ulcers, insufficient weight loss and vitamin deficiencies. So far she has proven to be an excellent communicator and very compliant with all our directions accomplishing a great weight loss. I believe that she is an excellent candidate and she is ready. 2. Preop prescriptions were provided and explained the purpose of each one. Need to be purchased preop. Start Pantoprazole now as you get it from the pharmacy, 1 pill per day. Sucralfate and Zofran are for after surgery as needed. 3. Bowel prep: please do 7 packets of Miralax mixing each one with a an 8oz glass of water, crystal light, gatorade zero, or propel on 07/04/25 and the same amount on 07/05/25. The Miralax you begin with one packet at a time in 8oz water or crystal light, gatorade zero, or propel as early in the day as you can and you do them back to back until you finish them. Continue the protein shakes during the bowel prep. 4. Needs to purchase 1oz medicine cups . 5. Needs to purchase Children's liquid Tylenol for postop pain control. 6. She needs to stop the Zepbound no later than 06/29/25. Avoid aspirin, motrin, Advil, Aleve, Ibuprofen, Naproxyn. Tylenol is OK. 7. She needs to purchase the Celebrate multivitamins from the hospital's gift shop. 8. Will do basic preop blood work-up any day between Saturday06/28/25 and Saturday07/02/25 fasting for 12 hours and is scheduled to see the Anesthesiologist prior to the day of surgery. 9. You must stop the Coumadin on 06/30/25 (last pill that day). On 06/30/25, you will start the Fondaparinux, one injection per day, daily until 07/05/25. Do not take the Fondaparinux or Coumadin on 07/06/25. 10. Importance of adherence to postop folllow-up and recommendations was underscored and she understands that. 11. Stop food and bars as of tomorrow 06/25/25 and continue with 4 Fairlife protein shakes (8oz of Fairlife each and NOT the whole bottle) at 9am-11am, 12pm-2pm, 3pm-5pm, 6pm-8pm and one more WHOLE BOTTLE Fairlife protein shake at 9pm-11pm 12. No soups, broths or V8 13. The patient's medical history has been reviewed and they are considered low risk for post op DVT and therefore DVT prophylaxis is not considered necessary. Travel after surgery was reviewed. The patient has not disclosed any travel plans during the first 30 days after surgery and they have been advised that within the first 30 days after surgery any bus, plane, train or car travel over 2 hours in duration is contraindicated due to the possibility of developing blood clots from immobility. Any travel, needs to include periods of ambulation of 10 minutes in duration every 2 hours. Patient was instructed to discuss any plans for travel during this period with their bariatric surgeon. 14. Use your CPAP daily and bring it to the hospital with your mask 14. As of tomorrow, please check your blood pressure daily in the morning. If your blood pressure is: Below 120/70: do not take the Losartan 121/71 to 130/80: take HALF Losartan Over 131/81: take the whole Losartan 15. Please take at the day of surgery the following medications: Losartan if the blood pressure that morning is high enough to justify it based on the above parameters 16. Stop any control pills and don't use them for one month after surgery 17. Absolutely no smoking or vaping, or marijuana until the surgery and for at least the first 4 weeks. Only nicotine patches are allowed. 18. Send me weight measurements on Saturday06/30/25 and then on Saturday07/06/25, the day of surgery before you go to the hospital. 19. Avoid any steroids by mouth for any reason. Let me know if someone prescribes them to you 20. These instructions supersede anything else you read in the handbook, anything you watched in videos or classes or you were told by any other provider. If there is any conflict, you follow the above instructions and nothing else. Orders: Orders C Reactive Protein Today E66.01 - Morbid (severe) obesity due to excess calories, I10 - Essential (primary) hypertension, Z68.43 - Body mass index [BMI] 50.0-59.9, adult Comprehensive Met. Panel Today E66.01 - Morbid (severe) obesity due to excess calories, I10 - Essential (primary) hypertension, Z68.43 - Body mass index [BMI] 50.0-59.9, adult Partial Thromboplastin Time Today E66.01 - Morbid (severe) obesity due to excess calories, I10 - Essential (primary) hypertension, Z68.43 - Body mass index [BMI] 50.0-59.9, adult Prothrombin Time INR Today E66.01 - Morbid (severe) obesity due to excess calories, I10 - Essential (primary) hypertension, Z68.43 - Body mass index [BMI] 50.0-59.9, adult TSH reflex Free T4 Today E66.01 - Morbid (severe) obesity due to excess calories, I10 - Essential (primary) hypertension, Z68.43 - Body mass index [BMI] 50.0-59.9, adult Insulin Today E66.01 - Morbid (severe) obesity due to excess calories, I10 - Essential (primary) hypertension, Z68.43 - Body mass index [BMI] 50.0-59.9, adult Complete Blood Count Auto Diff Today E66.01 - Morbid (severe) obesity due to excess calories, I10 - Essential (primary) hypertension, Z68.43 - Body mass index [BMI] 50.0-59.9, adult Lipid Panel Today E66.01 - Morbid (severe) obesity due to excess calories, I10 - Essential (primary) hypertension, Z68.43 - Body mass index [BMI] 50.0-59.9, adult Hemoglobin A1c Today E66.01 - Morbid (severe) obesity due to excess calories, I10 - Essential (primary) hypertension, Z68.43 - Body mass index [BMI] 50.0-59.9, adult Type and Screen Today E66.01 - Morbid (severe) obesity due to excess calories, I10 - Essential (primary) hypertension, Z68.43 - Body mass index [BMI] 50.0-59.9, adult Medications: New pantoprazole 40 mg PO DAILY 90 tabs 0RF K21.9 - Gastro-esophageal reflux disease without esophagitis fondaparinux Start on 06/30/25 and use one per day until 07/05/25. Do not take on 07/06/25. 2.5 mg (0.5 mL) subcut Q24H 5 mL 0RF I82.402 - Acute embolism and thrombosis of unspecified deep veins of left lower extremity sucralfate 10 mL PO BID 600 mL 2RF K21.9 - Gastro-esophageal reflux disease without esophagitis ondansetron Only take one every 12 hours as needed if you have nausea 4 mg PO Q12H 20 tabs 0RF nausea and vomiting R11.0 - Nausea polyethylene glycol 3350 Mix each measuring cup with 8oz of water, Crystal light, or Gatorade zero, or Propel and do 7 measuring cups on 07/04/25 and another 7 measuring cups on 07/05/25 17 grams PO DAILY 238 grams 0RF Z01.818 - Encounter for other preprocedural examination
--- OUTSIDE RECORDS SUMMARY | 2025-06-25 09:09 | XMS_ITS | Encounter Summary ---
Author Organization [facility] Address [address] [place] [address] Phone Care Team Providers Care Director Child Development Center Name Role Phone Demond Roger MD Unavailable [phone] FeltTianna ng MD Unavailable [phone] Yasmeen Ward MD Unavailable [email or web address] Meghna Parson MD Primary Care Provi vipin Madalyn Rogers MD Primary Care Provide r Meghna Parson MD Primary Care Provi vipin Macho Vincent DO Unavailable [phone] Camila Nayak BUTTERMAKER Unavailable [phone] MAMMOGRAPHY SUPERVISOR Unavailable Marian Alicia MD Primary Care Provider [phone] Encounter Details Date Type Department Care Team (Late st Contact Info) Description 05/29/2018 Ancillary Orders [facility], X-Ray - [address] [address] SabasLondon MD [address] [facility] [address] [place], [place] [id number] [email or web address] Pain Social History Tobacco Use Types Packs/Day [...] as of this encounter Care Teams Director Child Development Center Relationship Specialty Start Date End Date Meghna Parson MD [email or web address] PCP - General Internal Medicine 08/19/17 11/29/19 Madalyn Rogers MD [address] [place] [id number] PCP - General 11/30/19 12/30/20 Meghna Pasron MD [email or web address] PCP - General Internal Medicine 12/31/20 01/04/22 Marian Alicia MD [address] [place] [address] [email or web address] PCP - General Family Medicine 01/05/22 Demond Roger MD [address] [place] [phone] [email or web address] Historical LMR Provider 02/24/15 10/21/21 Tianna Coello MD [address] [place] [id number] [email or web address] Historical LMR Provider 02/24/15 10/21/21 Yasmeen Ward MD [email or web address] Historical LMR Provider 02/24/1510/21 Macho Vincent DO [address] [place] [address] [email or web address] Primary Oncologist Hematology and Oncology 09/13/21 Camila Nayak FNP [address] [place] [phone] [email or web address] Nurse Practitioner Medical Oncology 11/03/21 Mile Reynolds CNP [address] [place] [phone] [email or web address] Nurse Practitioner Medical Oncology 11/03/21 documented as of this encounter Additional Source Comments The information contained in this document represents components of the legal health record. It is not the complete legal health record.[facility]
--- OUTSIDE RECORDS SUMMARY | 2025-06-25 09:09 | XMS_ITS | Encounter Summary ---
Author Organization [facility] Address [address] [place] [address] Phone Care Team Providers Care Scraper Operator Name Role Phone Demond Roger MD Unavailable [phone] FeltmateTianna MD Unavailable [phone] Yasmeen Ward MD Unavailable [email or web address] Madalyn Rogers MD Primary Care Provide r Meghna Parson MD Primary Care Provi vipin Macho Vincent W DO Unavailable Camila Nayak USER EXPERIENCE RESEARCHER Unavailable [phone] PSYCHOLOGY TECHNICIAN Unavailable Marian Alicia MD Primary Care Provider [phone] Encounter Details Date Type Department Care Team (Late st Contact Info) Description 07/14/2020 Procedure [facility], [address] [phone] Social History Tobacco Use Types Packs/Day Years [...] documented as of this encounter Care Teams Scraper Operator Relationship Specialty Start Date End Date Madalyn Rogers MD [address] [place] [address] PCP - General 11/30/19 12/30/20 Meghna Parson MD [address] [place] [address] [email or web address] PCP - General Internal Medicine 12/31/20 01/04/22 Marian Alicia MD [address] [place] [address], [facility] [address] [place] [address] [email or web address] PCP - General Family Medicine 01/05/22 Demond Roger MD [address] [place] [phone] [email or web address] Historical LMR Provider 02/24/15 10/21/21 Tianna Coello MD [address] [place] [phone] [email or web address] Historical LMR Provider 02/24/15 10/21/21 Yasmeen Ward MD [email or web address] Historical LMR Provider 02/24/1510/21 Macho Vincent DO [address] [place] [id number] [email or web address] Primary Oncologist Hematology and Oncology 09/13/21 Camila Nayak FNP [address] [place] [phone] [email or web address] Nurse Practitioner Medical Oncology 11/03/21 Mile Reynolds CNP [address] [place] [phone] [email or web address] Nurse Practitioner Medical Oncology 11/03/21 documented as of this encounter Additional Source Comments The information contained in this document represents components of the legal health record. It is not the complete legal health record.[facility]
--- OUTSIDE RECORDS SUMMARY | 2025-06-25 09:09 | XMS_ITS | Encounter Summary ---
Author Organization [facility] Address [address] [employer] [place] [facility] [address] [place] [address] Phone Care Team Providers Care Rewriter Name Role Phone Demond Roger MD Unavailable [phone] FeltTianna ng MD Unavailable [phone] Yasmeen Ward MD Unavailable [email or web address] Meghna Parson MD Primary Care Provi viipn Madalyn Rogers MD Primary Care Provide r Meghna Parson MD Primary Care Provi vipin Macho Vincent DO Unavailable Camila Nayak AUTOMOTIVE PARTS COUNTERPERSON Unavailable Mile Reynolds CUSTOMS DIRECTOR Unavailable Marian Alicia MD Primary Care Provider [phone] Encounter Details Date Type Department Care Team (Latest Contact Info) Description 07/21/2018 Transcribe Orders [facility] Laboratory [address] [place] [address] Steven Trinidad, DO [address] [facility], [address] [place] [address] [email or web address] Hypogammaglobulinemia (Primary Dx) Social History [...] IgA, IgM (07/21/2018 10:41 AM EDT) Pathologist [facility] IMMUNOGLOBULIN G 478(L) 700 - 1,600 mg/dL [facility] IgA 67(L) 70 - 400 mg/dL [facility] IMMUNOGLOBULIN M 43 40 - 230 mg/dL [facility] Blood 07/21/2018 10:4 1 AM EDT 07/21/2018 10:52 AM EDT us Steven Trinidad DO LAB BLOOD ORDERABLES Final R esult [facility] [address] [place] [address] * (ABNORMAL) IgG subclasses (07/21/2018 10:41 AM EDT) Pathologist [facility] IGG 1 217(L) 341 - 894 mg/dL [facility] DPT OF LAB MED AND PAT+ IGG 2 181 171 - 632 mg/dl [facility] DPT OF LAB MED AND PAT+ IGG 3 85.1 18.4 - 106.0 mg/dl [facility] DPT OF LAB MED AND PAT+ IGG 4 10.7 2.4 - 121.0 mg/dl [facility] DPT OF LAB MED AND PAT+ TOTAL IGG 463(L) 767 - 1,590 mg/dl [facility] DPT OF LAB MED AND PAT+ Blood 07/21/2018 10:4 1 AM EDT 07/21/2018 10:51 AM EDT Steven Trinidad DO LAB BLOOD ORDERABLES Final R esult [facility] DPT OF LAB MED AND PAT+ [address] [place] [address] * (ABNORMAL) Monoclonal protein study, serum (07/21/2018 10:41 AM EDT) TOTAL PROTEIN 5.9(L) 6.3 - 7.9 g/dL [facility] DPT OF LAB MED AND PAT+ ALBUMIN 3.2(L) 3.4 - 4.7 g/dL [facility] DPT OF LAB MED AND PAT+ ALPHA-1 GLOBULIN 0.2 0.1 - 0.3 g/dL [facility] DPT OF LAB MED AND PAT+ ALPHA-2 GLOBULIN 1.0 0.6 - 1.0 g/dL [facility] DPT OF LAB MED AND PAT+ BETA-GLOBULIN 0.9 0.7 - 1.2 g/dL [facility] DPT OF LAB MED AND PAT+ GAMMA-GLOBULIN 0.5(L) 0.6 - 1.6 g/dL [facility] DPT OF LAB MED AND PAT+ A/G RATIO 1.19 [facility] DPT OF LAB MED AND PAT+ M SPIKE Test component not applicable or not reported. not reported [facility] DPT OF LAB MED AND PAT+ M SPIKE Test component not applicable or not reported. not reported [facility] DPT OF LAB MED AND PAT+ IMPRESSION SEE NOTE [facility] DPT OF LAB MED AND PAT+ Comment: (NOTE) Hypogammaglobulinemia See Immunofixation. IMMUNOFIXATION No monoclonal protein detected. [facility] DPT OF LAB MED AND PAT+ Blood 07/21/2018 10:4 1 AM EDT 07/21/2018 10:51 AM EDT Steven Trinidad DO LAB BLOOD ORDERABLES Final R esult [facility] DPT OF LAB MED AND PAT+ [address] [place] [address] * Tetanus antitoxoid antibody, IgG (07/21/2018 10:41 AM EDT) Tetanus Ab, IgG Positive [facility] LAB MED/PATH [facility] Comment: (NOTE) REFERENCE VALUE Vaccinated: Positive (>= 0.01 IU/mL) Unvaccinated: Negative (< 0.01 IU/mL) Tetanus IgG Value 1.97 IU/mL [facility] LAB MED/PATH SUPERIOR Comment: (NOTE) ADDITIONAL INFORMATION This test was developed and its performance characteristics determined by [facility] in a manner consistent with CLIA requirements. This test has not been cleared or approved by the U.S. Food and Drug Administration. Blood 07/21/2018 10:4 1 AM EDT 07/21/2018 10:51 AM EDT Steven Trinidad LAB BLOOD ORDERABLES Final R esult [facility] LAB MED/PATH [address] [place] [address] * (ABNORMAL) Comprehensive metabolic panel (07/21/2018 10:41 AM EDT) Pathologist [facility] SODIUM 145 133 - 146 mmol/L [facility] POTASSIUM 4.0 3.3 - 5.1 mmol/L [facility] CHLORIDE 106 96 - 108 mmol/L [facility] CO2 28 21 - 35 mmol/L [facility] BUN 14 6 - 19 mg/dL [facility] CREATININE 1.00 0.5 - 1.5 mg/dL [facility] GLUCOSE 84 70 - 99 mg/dL [facility] ALBUMIN 4.1 3.9 - 4.8 g/dL [facility] TOTAL PROTEIN 6.1(L) 6.5 - 8.0 g/dL [facility] CALCIUM 9.6 8.4 - 10.3 mg/dL [facility] ALKALINE PHOSPHATASE 70 39 - 117 U/L [facility] TOTAL BILIRUBIN 0.3 0.0 - 1.2 mg/dL [facility] AST 21 0 - 37 U/L [facility] ALT 14 0 - 40 U/L [facility] GLOBULIN 2.0 1 - 4.8 g/dL [facility] EGFR 65 >59 mL/min/1.7 3m2 [facility] Comment:If patient is black, multiply result by 1.159. Estimated glomerular filtration rate calculated using the CKD-EPI equation. ANION GAP 15 10 - 20 mmol/L [facility] Blood 07/21/2018 10:4 1 AM EDT 07/21/2018 10:52 AM EDT us Steven Trinidad DO LAB BLOOD ORDERABLES Final R esult [facility] [address] [place] [address] * (ABNORMAL) CBC and differential (07/21/2018 10:41 AM EDT) WBC 7.14 3.40 - 11.20 K/uL [facility] RBC 4.86(H) 3.80 - 4.80 M/uL [facility] HGB 14.6 12.0 - 15.0 g/dL [facility] HCT 43.4 36.0 - 46.0 % [facility] PLT 259 130 - 400 K/uL [facility] MCV 89.3 79.0 - 98.0 fL [facility] MCH 30.0 27.0 - 34.8 pg [facility] MCHC 33.6 31.5 - 36.0 g/dL [facility] RDW 13.0 10.8 - 14.6 % [facility] MPV 10.0 9.4 - 12.4 fl [facility] NRBC 0.00 /100 WBCs [facility] ABSOLUTE NRBC 0.00 K/uL [facility] DIFF METHOD Auto [facility] NEUTS 58.4 45.30 - 77.70 % [facility] LYMPHS 32.5 12.30 - 39.70 % [facility] MONOS 6.7 4.10 - 12.80 % [facility] EOS 1.5 0 - 7.2 % [facility] BASOS 0.3 0 - 2.80 % [facility] Granulocytes, immature (%) 0.6 0.0 - 0.9 % [facility] ABSOLUTE NEUTS 4.17 1.40 - 7.70 K/uL [facility] ABSOLUTE LYMPHS 2.32 0.60 - 3.20 K/uL [facility] ABSOLUTE MONOS 0.48 0.11 - 0.59 K/uL [facility] ABSOLUTE EOS 0.11 0.01 - 0.50 K/uL [facility] ABSOLUTE BASOS 0.02 0.00 - 0.08 K/uL [facility] Granulocytes, immature 0.04 0.00 - 0.05 K/uL [facility] Blood 07/21/2018 10:4 1 AM EDT 07/21/2018 10:52 AM EDT Steven Trinidad DO LAB BLOOD ORDERABLES Final R esult Performing Organization Address City/State/[facility] Co de Phone Number [address] [address] documented in this encounter Visit Diagnoses Diagnosis Hypogammaglobulinemia- Primary Unspecified hypogammaglobulinemia documented in this encounter Additional Health Concerns Infection Onset Date Last Indicated Resolved Time CoV-Exposed Comment:Recent close contact documented in the COVID-19 PCR/PRO order 09/25/2021 10/03/2021 10/10/2021 1:[address] CoV-Presumed 10/09/2022 10/09/2022 10/30/2022 1:21 AM EST CoV-Risk 03/01/2023 03/01/2023 03/12/2023 1:22 AM EDT documented as of this encounter Care Teams Rewriter Relationship Specialty Start Date End Date Meghna Parson MD [email or web address] PCP - General Internal Medicine 08/19/17 11/29/19 Madalyn Rogers MD [address] [place] [address] PCP - General 11/30/19 12/30/20 Meghna Parson MD [email or web address] PCP - General Internal Medicine 12/31/20 01/04/22 Marian Alicia MD [address] [place] [address] [address] [place] [address] [email or web address] PCP - General Family Medicine 01/05/22 Demond Roger MD [address] [place] [address] [email or web address] Historical LMR Provider 02/24/15 10/21/21 Tianna Coello MD [address] [place] [address] [email or web address] Historical LMR Provider 02/24/15 10/21/21 Yasmeen Ward MD [email or web address] Historical LMR Provider 02/24/1510/21 Macho Vincent DO [address] [place] [address] [email or web address]. [facility] Primary Oncologist Hematology and Oncology 09/13/21 Camila Nayak FNP [address] [place] [address] [email or web address] Nurse Practitioner Medical Oncology 11/03/21 Mile Reynolds CNP [address] [place] [address] [email or web address] Nurse Practitioner Medical Oncology 11/03/21 documented as of this encounter Additional Source Comments The information contained in this document represents components of the legal health record. It is not the complete legal health record.[facility]
--- OUTSIDE RECORDS SUMMARY | 2025-06-25 09:09 | XMS_ITS | Encounter Summary ---
Author Organization [facility] Address [address] [address] Phone Care Team Providers Care Piece Worker Name Role Phone Demond Roger MD Unavailable [phone] FeltTianna ng MD Unavailable [phone] Yasmeen Ward MD Unavailable [email or web address] Meghna Parson MD Primary Care Provi vipin Madalyn Rogers MD Primary Care Provide r Meghna Parson MD Primary Care Provi vipin Macho Vincent DO Unavailable [phone] Camila Nayak KNITTING MACHINE OPERATOR HELPER Unavailable [phone] WOODWORKING SHOP HAND Unavailable Marian Alicia MD Primary Care Provider [phone] Reason for Referral * Physical Therapy (Routine) - Closed Specialty Diagnoses / Procedures Referred By Thompson t Referred To Contact Physical Therapy Diagnoses SI (sacroiliac) pain Meghna Parson MD Phone: tel: mailto:[email or web address] [address] [place] [address] Phone: tel: Referral ID Status Reason Start Date Expiration Date Visits Re quested Visits Authorized [id number] Closed 01/27/2019 01/28/2020 1 1 Encounter Details Date Type Department Care Team (Latest Contact Info) Description 01/27/2019 Transcribe Orders [facility] [address] [place] [address] Meghna Parson MD [address] [place] [address] [email or web address] SI (sacroiliac) pain (Primary Dx) Social History [...] Associated Diagnoses Order Schedule Ambulatory referral to [facility] Physical Therapy Outpatient Referral Routine SI (sacroiliac) [...] documented as of this encounter Care Teams Piece Worker Relationship Specialty Start Date End Date Meghna Parson MD [email or web address] PCP - General Internal Medicine 08/19/17 11/29/19 Madalyn Rogers MD [address] [place] [address] PCP - General 11/30/19 12/30/20 Meghna Parson MD [email or web address] PCP - General Internal Medicine 12/31/20 01/04/22 Marian Alicia MD [address] [place] [address] [email or web address] PCP - General Family Medicine 01/05/22 Demond Roger MD [address] [place] [address] [email or web address] Historical LMR Provider 02/24/15 10/21/21 Tianna Coello MD [address] [place] [address] [email or web address] Historical LMR Provider 02/24/15 10/21/21 Yasmeen Ward MD [email or web address] Historical LMR Provider 02/24/1510/21 Macho Vincent DO [address] [place] [address] [email or web address] [facility] Primary Oncologist Hematology and Oncology 09/13/21 Camila Nayak FNP [address] [place] [address] [email or web address] Nurse Practitioner Medical Oncology 11/03/21 Mile Reynolds CNP [address] [place] [address] [email or web address] Nurse Practitioner Medical Oncology 11/03/21 documented as of this encounter Additional Source Comments The information contained in this document represents components of the legal health record. It is not the complete legal health record.[facility]
--- OUTSIDE RECORDS SUMMARY | 2025-06-25 09:09 | XMS_ITS | Encounter Summary ---
Author Organization [facility] Address [address] [facility] [address] [place] [address] Phone Care Team Providers Care Guide Plant Name Role Phone Demond Roger MD Unavailable [phone] FeltTianna ng MD Unavailable [phone] Yasmeen Ward MD Unavailable [email or web address] Meghna Parson MD Primary Care Provi vipin Madalyn Rogers MD Primary Care Provide r Meghna Parson MD Primary Care Provi vipin Macho Vincent DO Unavailable Camila Nayak TECHNOLOGY INTERN Unavailable [phone] PICKUP DRIVER Unavailable Marian Alicia MD Primary Care Provider [phone] Encounter Details Date Type Department Care Team (Late st Contact Info) Description 03/05/2018 Ancillary Orders Virtual Department [address] [place] [address] London Obregon MD [address] [facility] [address] [place] [address] [email or web address] Dyspnea, unspecified type; Hypoxemia; Cough; Wheeze; Pulmonary [...] documented as of this encounter Care Teams Guide Plant Relationship Specialty Start Date End Date Meghna Parson MD [email or web address] PCP - General Internal Medicine 08/19/17 11/29/19 Madalyn Rogers MD [address] [place] [address] PCP - General 11/30/19 12/30/20 Meghna Parson MD [email or web address] PCP - General Internal Medicine 12/31/20 01/04/22 Marian Alicia MD [address] [place] [address], [facility] [address] [place] [address] [email or web address] PCP - General Family Medicine 01/05/22 Demond Roger MD [address] [place] [address] [email or web address] Historical LMR Provider 02/24/15 10/21/21 Tianna Coello MD [address] [place] [address] [email or web address] Historical LMR Provider 02/24/15 10/21/21 Yasmeen Ward MD [email or web address] Historical LMR Provider 02/24/1510/21 Macho Vincent DO [address] [place] [address] [email or web address]. [facility] Primary Oncologist Hematology and Oncology 09/13/21 Camila Nayak FNP [address] [place] [address] [email or web address] Nurse Practitioner Medical Oncology 11/03/21 Mile Reynolds CNP [address] [place] [address] [email or web address] Nurse Practitioner Medical Oncology 11/03/21 documented as of this encounter Additional Source Comments The information contained in this document represents components of the legal health record. It is not the complete legal health record.[facility]
--- OUTSIDE RECORDS SUMMARY | 2025-06-25 09:09 | XMS_ITS | Encounter Summary ---
Author Organization [facility] Address 399 [facility] [address] [place] [address] Phone Care Team Providers Care Electrical Controls Engineer Name Role Phone Demond Roger MD Unavailable [phone] FeltTianna ng MD Unavailable [phone] Yasmeen Ward MD Unavailable [email or web address] Meghna Parson MD Primary Care Provi vipin Madalyn Rogers MD Primary Care Provide r Meghna Parson MD Primary Care Provi vipin Macho Vincent DO Unavailable Camila Nayak BASEBALL INSPECTOR Unavailable Mile Reynolds CREDIT RELATIONSHIP MANAGER Unavailable Marian Alicia MD Primary Care Provider [phone] Encounter Details Date Type Department Care Team (Late st Contact Info) Description 12/10/2018 Ancillary Orders [facility], X-Ray - [address] [address] Meghna Parson MD [address] [place], [place] [phone] [email or web address] Social History Tobacco Use Types Packs/Day [...] joints. Facet arthritic changes notable L3 through [id number]. IMPRESSION: No evidence for acute fracture. Degenerative [...] joints. Facet arthritic changes notable L3 through [id number]. IMPRESSION: No evidence for acute fracture. Degenerative [...] documented as of this encounter Care Teams Electrical Controls Engineer Relationship Specialty Start Date End Date Meghna Parson MD [email or web address] PCP - General Internal Medicine 08/19/17 11/29/19 Madalyn Rogers MD [address] [place] [address] PCP - General 11/30/19 12/30/20 Meghna Parson MD [email or web address] PCP - General Internal Medicine 12/31/20 01/04/22 Marian Alicia MD [address] [place] [address], [address] [place] [address] [email or web address] PCP - General Family Medicine 01/05/22 Demond Roger MD [address] [place] [address] [email or web address] Historical LMR Provider 02/24/15 10/21/21 Tianna Coello MD [address] [place] [address] [email or web address] Historical LMR Provider 02/24/15 10/21/21 Yasmeen Ward MD [email or web address] Historical LMR Provider 02/24/1510/21 Macho Vincent DO [address] [place] [address] [email or web address] Primary Oncologist Hematology and Oncology 09/13/21 Camila Nayak FNP [address] [place] [address] [email or web address] Nurse Practitioner Medical Oncology 11/03/21 Mile Reynolds CNP [address] [place] [address] [email or web address] Nurse Practitioner Medical Oncology 11/03/21 documented as of this encounter Additional Source Comments The information contained in this document represents components of the legal health record. It is not the complete legal health record.[facility]
--- OUTSIDE RECORDS SUMMARY | 2025-06-25 09:09 | XMS_ITS | Encounter Summary ---
Author Organization [facility] Address 399 [facility] [address] [place] [address] Phone Care Team Providers Care Kennel Worker Name Role Phone Demond Roger MD Unavailable [phone] FeltTianna ng MD Unavailable [phone] Yasmeen Ward MD Unavailable [email or web address] Meghna Parson MD Primary Care Provi vipin Maadlyn Rogers MD Primary Care Provide r Meghna Parson MD Primary Care Provi vipin Macho Vincent DO Unavailable [phone] Camila Nayak FIBERGLASS BONDING MACHINE TENDER Unavailable Mile Reynolds GUIDE PLANT Unavailable Marian Alicia MD Primary Care Provider [phone] Encounter Details Date Type Department Care Team (Late st Contact Info) Description 10/28/2018 Transcribe Orders [facility] Specimen Processing [address] [place] [address] Meghna Parson MD [address] [place], [place] [phone] [email or web address] Urinary tract infection without hematuria, site unspecified [...] Specimen Source/ Description URINE CLEAN CATCH URINE [facility] Special Requests None [facility] GRAM STAIN NO ORGANISMS SEEN [facility] Culture/Test 10,000 to 100,000 colony forming units per ml MIXED HAYLEE (3 OR MORE COLONY TYPES) Culture indicates contamination . Please resubmit if necessary.(A) [facility] Report Status 10/30/2018 FINAL [facility] Urine (Urine) 10/28/2018 4:3 7 PM EST 10/28/2018 4:39 PM EST us Meghna Parson MD MICROBIOLOGY - [facility] ORDERABLES Final Result [facility] [address] [place] [address] * (ABNORMAL) Urinalysis (10/28/2018 4:37 PM EST) COLOR Yellow Yellow [facility] CLARITY Clear [facility] GLUCOSE Negative Negative [facility] BILI Negative Negative [facility] KETONES Negative Negative [facility] SPECIFIC GRAVITY 1.010 1.005 - 1.030 [facility] BLOOD Negative Negative [facility] PH 6.0 5.0 - 8.0 [facility] Protein-UA Negative Negative [facility] NITRITE Negative Negative [facility] Leukocyte esterase, ur Trace(A) Negative [facility] Urine (Urine) 10/28/2018 4:3 7 PM EST 10/28/2018 4:39 PM EST Meghna Parson MD URINE ORDERABLES Fi nal Result [facility] [address] [place] [address] documented in this encounter Visit Diagnoses Diagnosis [...] documented as of this encounter Care Teams Kennel Worker Relationship Specialty Start Date End Date Meghna Parson MD [email or web address] PCP - General Internal Medicine 08/19/17 11/29/19 Madalyn Rogers MD [address] [place] [address] PCP - General 11/30/19 12/30/20 Meghna Parson MD [email or web address] PCP - General Internal Medicine 12/31/20 01/04/22 Marian Alicia MD [address] [place] [address] [address] [place] [address] [email or web address] PCP - General Family Medicine 01/05/22 Demond Roger MD [address] [place] [address] [email or web address] Historical LMR Provider 02/24/15 10/21/21 Tianna Coello MD [address] [place] [address] [email or web address] Historical LMR Provider 02/24/15 10/21/21 Yasmeen Ward MD [email or web address] Historical LMR Provider 02/24/1510/21 Macho Vincent DO [address] [place] [address] [email or web address] Primary Oncologist Hematology and Oncology 09/13/21 Camila Nayak FNP [address] [place] [address] Nurse Practitioner Medical Oncology 11/03/21 Mile Reynolds CNP [address] [place] [address] [email or web address] Nurse Practitioner Medical Oncology 11/03/21 documented as of this encounter Additional Source Comments The information contained in this document represents components of the legal health record. It is not the complete legal health record.[facility]
--- OUTSIDE RECORDS SUMMARY | 2025-06-25 09:09 | XMS_ITS | Clinical Summary ---
Author Organization [facility], Address [address] [place] [address] Phone Care Team Providers Care Chemical Educator Name Role Phone Aretha Bain NP Primary Care Provider [phone] Allergies Active Allergy Reactions Criticality Noted Date [...] Visit [facility] [address] [place] [address] Jamison Avila MD Hypertensive heart and chronic [...] Office Visit [facility] [address] [place] [phone] Jamison Avila MD [address] [facility] [place] [phone] Health Maintenance Due Date Last Done Comments [...] Discontinued 05/25/2008, 05/05/2008, 05/05/2008 Insurance Medicaid [place] [facility] Care Teams Chemical Educator Relationship Specialty Start Date End Date Aretha Bain NP [address] [facility] 1 [place] [address] PCP - General Nurse Practitioner 04/12/25
--- OUTSIDE RECORDS SUMMARY | 2025-06-25 09:09 | XMS_ITS | Encounter Summary ---
Author Organization [facility] Address [address] [facility] [address] [place] [address] Phone Care Team Providers Care Qa Automation Engineer Name Role Phone Demond Roger MD Unavailable [phone] FeltTianna ng MD Unavailable [phone] Yasmeen Ward MD Unavailable [email or web address] Meghna Parson MD Primary Care Provi vipin Madalyn Rogers MD Primary Care Provide r Meghna Parson MD Primary Care Provi vipin Macho Vincent DO Unavailable Camila Nayak TIN WHIZ MACHINE OPERATOR Unavailable Mile Reynolds PRESS TENDER STAR SIGNAL Unavailable Marian Alicia MD Primary Care Provider [phone] Encounter Details Date Type Department Care Team (Late st Contact Info) Description 04/24/2018 Transcribe Orders [facility] Laboratory 30 [place] [address] Meghna Parson MD [address] [place], [place] [phone] [email or web address] Screening for tuberculosis (Primary Dx) Social History [...] * Quantiferon-TB Gold (04/24/2018 4:17 PM EDT) [facility] QuantiFERON-TB Gold Negative Negative [facility]PATH [facility]PERIOR Comment: (NOTE) No interferon-gamma [...] MED/PATH SUPERIOR Mitogen minus Nil >10.00 IU/mL [facility] LAB MED/PATH SUPERIOR HODGE Nil Result 0.01 IU/mL [facility] LAB MED/PATH SUPERIOR HODGE Blood 04/24/2018 4:17 PM EDT 04/24/2018 4:18 PM EDT us Meghna Parson MD LAB BLOOD ORDERABLE S Final Result [facility]PATH SUPERIOR [address] [place] [address] documented in this encounter Visit Diagnoses Diagnosis [...] documented as of this encounter Care Teams Qa Automation Engineer Relationship Specialty Start Date End Date Meghna Parson MD [email or web address] PCP - General Internal Medicine 08/19/17 11/29/19 Madalyn Rogers MD [address] [place] [address] PCP - General 11/30/19 12/30/20 Meghna Parson MD [email or web address] PCP - General Internal Medicine 12/31/20 01/04/22 Marian Alicia MD [address] [place] [address] 7 [place] [address] [email or web address] PCP - General Family Medicine 01/05/22 Demond Roger MD [address] [place] [address] [email or web address] Historical LMR Provider 02/24/15 10/21/21 Tianna Coello MD [address] [place] [address] [email or web address] Historical LMR Provider 02/24/15 10/21/21 Yasmeen Ward MD [email or web address] Historical LMR Provider 02/24/1510/21 Macho Vincent DO [address] [place] [address] [email or web address] Primary Oncologist Hematology and Oncology 09/13/21 Camila Nayak FNP [address] [place] [address] [email or web address] Nurse Practitioner Medical Oncology 11/03/21 Mile Reynolds CNP [address] [place] [address] [email or web address] Nurse Practitioner Medical Oncology 11/03/21 documented as of this encounter Additional Source Comments The information contained in this document represents components of the legal health record. It is not the complete legal health record.[facility]
--- OUTSIDE RECORDS SUMMARY | 2025-06-25 09:09 | XMS_ITS | Encounter Summary ---
Author Organization [facility] Address [address] [facility] [address] [place] [address] Phone Care Team Providers Care Visual Educator Name Role Phone Demond Roger MD Unavailable [phone] FeltmateTianna MD Unavailable [phone] Yasmeen Ward MD Unavailable [email or web address] Meghna Parson MD Primary Care Provi vipin CarltonMacho gary W DO Unavailable Camila Nayak BARTENDER SERVER Unavailable Mile Reynolds PROSECUTING ATTORNEY Unavailable Marian Alicia MD Primary Care Provider [phone] Encounter Details Date Type Department Care Team (Late st Contact Info) Description 08/28/2021 Procedure Pass [facility], [facility] 30 [place], [place] [id number] Social History Tobacco Use Types Packs/Day Years [...] documented as of this encounter Care Teams Visual Educator Relationship Specialty Start Date End Date Meghna Parson MD [email or web address] PCP - General Internal Medicine 12/31/20 01/04/22 Marian Alicia MD [address] [place] [address] 7 [place] [address] [email or web address] PCP - General Family Medicine 01/05/22 Demond Roger MD [address] [place] [address] [email or web address] Historical LMR Provider 02/24/15 10/21/21 Tianna Coello MD [address] [place] [address] [email or web address] Historical LMR Provider 02/24/15 10/21/21 Yasmeen Ward MD [email or web address] Historical LMR Provider 02/24/1510/21 Macho Vincent DO [address] [place] [address] [email or web address] Primary Oncologist Hematology and Oncology 09/13/21 Camila Nayak FNP [address] [place] [address] [email or web address] Nurse Practitioner Medical Oncology 11/03/21 Mile Reynolds CNP [address] [place] [address] [email or web address] Nurse Practitioner Medical Oncology 11/03/21 documented as of this encounter Additional Source Comments The information contained in this document represents components of the legal health record. It is not the complete legal health record.[facility]
--- OUTSIDE RECORDS SUMMARY | 2025-06-25 09:09 | XMS_ITS | Encounter Summary ---
Author Organization [facility] Address [address] [facility] [address] [place] [address] Phone Care Team Providers Care Rice Drier Name Role Phone Demond Roger MD Unavailable [phone] FeltmateTianna MD Unavailable [phone] Yasmeen Ward MD Unavailable [email or web address] Madalyn Rogers MD Primary Care Provide r Meghna Parson MD Primary Care Provi vipin CarltonMacho gary W DO Unavailable [phone] Camila Nayak CPR AMBULANCE DRIVER Unavailable [phone] [employer]EL[employer] Unavailable Marian Alicia MD Primary Care Provider [phone] Encounter Details Date Type Department Care Team (Late st Contact Info) Description 07/14/2020 Ancillary Orders Virtual Department 30 [place] [address] Meghna Parson MD [address] [place], [place] [phone] [email or web address] Breast screening Social History Tobacco Use Types [...] and compared with multiple prior studies, most mtbmbufh62/25/2019, with utilization of computer-aided detection. The breasts [...] documented as of this encounter Care Teams Rice Drier Relationship Specialty Start Date End Date Madalyn Rogers MD [address] [place] [address] PCP - General 11/30/19 12/30/20 Meghna Parson MD [address] [place] [address] [email or web address] PCP - General Internal Medicine 12/31/20 01/04/22 Marian Alicia MD [address] [place] [address], [facility] 7 [place] [address] [email or web address] PCP - General Family Medicine 01/05/22 Demond Roger MD [address] [place] [address] [email or web address] Historical LMR Provider 02/24/15 10/21/21 Tianna Coello MD [address] [place] [address] [email or web address] Historical LMR Provider 02/24/15 10/21/21 Yasmeen Ward MD [email or web address] Historical LMR Provider 02/24/1510/21 Macho Vincent DO [address] [place] [address] [email or web address] Primary Oncologist Hematology and Oncology 09/13/21 Camila Nayak FNP [address] [place] [address] [email or web address] Nurse Practitioner Medical Oncology 11/03/21 Mile Reynolds CNP [address] [place] [address] [email or web address] Nurse Practitioner Medical Oncology 11/03/21 documented as of this encounter Additional Source Comments The information contained in this document represents components of the legal health record. It is not the complete legal health record.[facility]
--- OUTSIDE RECORDS SUMMARY | 2025-06-25 09:09 | XMS_ITS | Encounter Summary ---
Author Organization [facility] Address [address] [facility] [address] [place] [address] Phone Care Team Providers Care Lorry Weigher Name Role Phone Demond Roger MD Unavailable [phone] FeltTianna ng MD Unavailable [phone] Yasmeen Ward MD Unavailable [email or web address] Meghna Parson MD Primary Care Provi vipin Macho Vincent W DO Unavailable [phone] Camila Nayak ANIMATION CAMERA OPERATOR Unavailable [phone] Reynolds ACID PUMP OPERATOR Unavailable Marian Alicia MD Primary Care Provider [phone] Reason for Referral * Consultation (Elective) - Closed Specialty Diagnoses / Procedures Referred By Thompson t Referred To Contact Pulmonary Disease Meghna Parson MD Phone: tel: [email or web address] [address] [address] Phone: tel: Referral ID Status Reason Start Date Expiration Date Visits Re quested Visits Authorized [id number] Closed 08/25/2021 08/25/2022 1 1 Encounter Details Date Type Department Care Team (Late st Contact Info) Description 08/25/2021 Transcribe Orders [facility] Pulmonary, Allergy and Critical Care Medicine [address] [place] [address] [place] [address] Meghna Parson MD [address] [place] [address] [email or web address] Social History Tobacco Use Types Packs/Day Years [...] Associated Diagnoses Order Schedule Ambulatory referral to [facility] Pulmonology Outpatient Referral Routine Ordered: 08/25/2021 [...] documented as of this encounter Care Teams Lorry Weigher Relationship Specialty Start Date End Date Meghna Parson MD [email or web address] PCP - General Internal Medicine 12/31/20 01/04/22 Marian Alicia MD [address] [place] [address], [address] [place] [address] [email or web address] PCP - General Family Medicine 01/05/22 Demond Roger MD [address] [place] [address] [email or web address] Historical LMR Provider 02/24/15 10/21/21 Tianna Coello MD [address] [place] [address] [email or web address] Historical LMR Provider 02/24/15 10/21/21 Yasmeen Ward MD [email or web address] Historical LMR Provider 02/24/1510/21 Macho Vincent DO [address] [place] [address] [email or web address] Primary Oncologist Hematology and Oncology 09/13/21 Camila Nayak FNP [address] [place] [address] [email or web address] Nurse Practitioner Medical Oncology 11/03/21 Mile Reynolds CNP [address] [place] [address] [email or web address] Nurse Practitioner Medical Oncology 11/03/21 documented as of this encounter Additional Source Comments The information contained in this document represents components of the legal health record. It is not the complete legal health record.[facility]
--- OUTSIDE RECORDS SUMMARY | 2025-06-25 09:09 | XMS_ITS | Encounter Summary ---
Author Organization [facility] Address [address] [facility] [address] [place] [address] Phone Care Team Providers Care Launch Commander Harbor Police Name Role Phone Demond Roger MD Unavailable [phone] FeltTianna ng MD Unavailable [phone] Yasmeen Ward MD Unavailable [email or web address] Meghna Parson MD Primary Care Provi vipin Madalyn Rogers MD Primary Care Provide r Meghna Parson MD Primary Care Provi vipin Macho Vincent DO Unavailable [phone] Camila Nayak CRIMINAL PSYCHOLOGIST Unavailable Mile Reynolds FOOD PRODUCTS TESTER Unavailable Marian Alicia MD Primary Care Provider [phone] Encounter Details Date Type Department Care Team (Late st Contact Info) Description 01/26/2019 Ancillary Orders [facility], X-Ray - [address] [address] Meghna Parson MD [address] [place], [place] [phone] [email or web address] Hip pain, left Social History Tobacco Use [...] documented as of this encounter Care Teams Launch Commander [employer] Police Relationship Specialty Start Date End Date Meghna Parson MD [email or web address] PCP - General Internal Medicine 08/19/17 11/29/19 Madalyn Rogers MD [address] [place] [address] PCP - General 11/30/19 12/30/20 Meghna Parson MD [email or web address] PCP - General Internal Medicine 12/31/20 01/04/22 Marian Alicia MD [address] [place] [address] 7 [place] [address] [email or web address] PCP - General Family Medicine 01/05/22 Demond Roger MD [address] [place] [address] [email or web address] Historical LMR Provider 02/24/15 10/21/21 Tianna Coello MD [address] [place] [address] [email or web address] Historical LMR Provider 02/24/15 10/21/21 Yasmeen Ward MD [email or web address] Historical LMR Provider 02/24/1510/21 Macho Vincent DO [address] [place] [address] [email or web address] Primary Oncologist Hematology and Oncology 09/13/21 Camila Nayak FNP [address] [place] [address] Nurse Practitioner Medical Oncology 11/03/21 Mile Reynolds CNP [address] [place] [address] Nurse Practitioner Medical Oncology 11/03/21 documented as of this encounter Additional Source Comments The information contained in this document represents components of the legal health record. It is not the complete legal health record.[facility]
--- OUTSIDE RECORDS SUMMARY | 2025-06-25 09:09 | XMS_ITS | Encounter Summary ---
Author Organization [facility] Address [address] [facility] [address] [place] [address] Phone Care Team Providers Care Forensic Investigator Name Role Phone Demond Roger MD Unavailable [phone] FeltTianna ng MD Unavailable [phone] Yasmeen Ward MD Unavailable [email or web address] Meghna Parson MD Primary Care Provi vipin Madalyn Rogers MD Primary Care Provide r Meghna Parson MD Primary Care Provi vipin Macho Vincent DO Unavailable Camila Nayak LEATHER SCRAPER Unavailable [phone] Reynolds FURNITURE SPRAYER Unavailable Marian Alicia MD Primary Care Provider [phone] Encounter Details Date Type Department Care Team (Late st Contact Info) Description 07/31/2018 Ancillary Orders Virtual Department 30 [place] [address] Meghna Parson MD [address] [place], [place] [id number] [email or web address] Breast screening Social History Tobacco Use Types [...] There are scattered fibroglandular densities. POS - [id number] Narrative 09/05/2018 9:29 AM EST Bilateral mammography [...] There are scattered fibroglandular densities. POS - [id number] Meghna Parson MD IMG MG EXAMS Fin [...] documented as of this encounter Care Teams Forensic Investigator Relationship Specialty Start Date End Date Meghna Parson MD [email or web address] PCP - General Internal Medicine 08/19/17 11/29/19 Madalyn Rogers MD [address] [place] [address] PCP - General 11/30/19 12/30/20 Meghna Parson MD [email or web address] PCP - General Internal Medicine 12/31/20 01/04/22 Marian Alicia MD [address] [place] [address], [address] [place] [address] [email or web address] PCP - General Family Medicine 01/05/22 Demond Roger MD [address] [place] [address] [email or web address] Chao LMR Provider 02/24/15 10/21/21 Tianna Coello MD [address] [place] [address] [email or web address] Historical LMR Provider 02/24/15 10/21/21 Yasmeen Ward MD [email or web address] Historical LMR Provider 02/24/1510/21 Macho Vincent DO [address] [place] [address] [email or web address] Primary Oncologist Hematology and Oncology 09/13/21 Camila Nayak FNP [address] [place] [address] [email or web address] Nurse Practitioner Medical Oncology 11/03/21 Mile Reynolds CNP [address] [place] [address] [email or web address] Nurse Practitioner Medical Oncology 11/03/21 documented as of this encounter Additional Source Comments The information contained in this document represents components of the legal health record. It is not the complete legal health record.[facility]
--- OUTSIDE RECORDS SUMMARY | 2025-06-25 09:09 | XMS_ITS | Encounter Summary ---
Author Organization [facility] Address [address] [facility] [address] [place] [address] Phone Care Team Providers Care Ordnance Technician Name Role Phone Demond Roger MD Unavailable [phone] FeltTianna ng MD Unavailable [phone] Yasmeen Ward MD Unavailable [email or web address] Meghna Parson MD Primary Care Provi vipin Madalyn Rogers MD Primary Care Provide r Meghna Parson MD Primary Care Provi vipin Macho Vincent DO Unavailable Camila Nayak HOST/HOSTESS RESTAURANT Unavailable [phone] Reynolds DEPARTMENTAL BUYER Unavailable Marian Alicia MD Primary Care Provider [phone] Encounter Details Date Type Department Care Team (Latest Contact Info) Description 05/29/2018 Transcribe Orders [facility] Specimen Processing 30 [place] [address] London Obregon MD [address] [facility] [address] [place], [place] [id number] [email or web address] Urinary tract infection without hematuria, site unspecified [...] EDT) Specimen Source/ Description URINE URINE URINE [facility] Special Requests None [facility] GRAM STAIN NO ORGANISMS SEEN [facility] Culture/Test 10,000 to 100,000 colony forming units per ml MIXED HAYLEE (3 OR MORE COLONY TYPES) Culture indicates contamination . Please resubmit if necessary. [facility] Report Status 05/31/2018 FINAL [facility] Urine (Urine) 05/29/2018 4:3 7 PM EDT 05/29/2018 4:39 PM EDT London Obregon MD MICROBIOLOGY - GENERAL ORDERABL ES Final Result [address] [address] * (ABNORMAL) Urinalysis (05/29/2018 4:37 PM EDT) COLOR STRAW(A) Yellow [facility] CLARITY Clear [facility] GLUCOSE Negative Negative [facility] BILI Negative Negative [facility] KETONES Negative Negative [facility] SPECIFIC GRAVITY <1.005 1.005 - 1.030 [facility] BLOOD Negative Negative [facility] PH 5.5 5.0 - 8.0 [facility] Protein-UA Negative Negative [facility] NITRITE Negative Negative [facility] Leukocyte esterase, ur Negative Negative [facility] Urine (Urine) 05/29/2018 4:3 7 PM EDT 05/29/2018 4:39 PM EDT London Obregon MD URINE ORDERABLES Final Result Performing Organization Address City/State/[facility] Co de Phone Number [facility] [address] [place] [address] documented in this encounter Visit Diagnoses Diagnosis [...] documented as of this encounter Care Teams Ordnance Technician Relationship Specialty Start Date End Date Meghna Parson MD [email or web address] PCP - General Internal Medicine 08/19/17 11/29/19 Madalyn Rogers MD [address] [place] [address] PCP - General 11/30/19 12/30/20 Meghna Parson MD [email or web address] PCP - General Internal Medicine 12/31/20 01/04/22 Marian Alicia MD [address] [place] [address] 7 [place] [address] PCP - General Family Medicine 01/05/22 Demond Roger MD [address] [place] [address] [email or web address] Historical LMR Provider 02/24/15 10/21/21 Tianna Coello MD [address] [place] [address] [email or web address] Historical LMR Provider 02/24/15 10/21/21 Yasmeen Ward MD [email or web address] Historical LMR Provider 02/24/1510/21 Macho Vincent DO [address] [place] [address] [email or web address] Primary Oncologist Hematology and Oncology 09/13/21 Camila Nayak FNP [address] [place] [address] Nurse Practitioner Medical Oncology 11/03/21 Mile Reynolds CNP [address] [place] [address] [email or web address] Nurse Practitioner Medical Oncology 11/03/21 documented as of this encounter Additional Source Comments The information contained in this document represents components of the legal health record. It is not the complete legal health record.[facility]
--- OUTSIDE RECORDS SUMMARY | 2025-06-25 09:09 | XMS_ITS | Encounter Summary ---
Author Organization [facility] [place] [facility] Address [address] [place] [address] Phone Care Team Providers Care Financial Reporting Accountant Name Role Phone Aretha Bain NP Primary Care Provider [phone] Encounter Details Date Type Department Care Team (Late Contact Info) Description 08/12/2023 Documentation Only [facility] [address] [place] [phone] Marian Alicia MD [address] [place] [address] Social History Tobacco Use Types Packs/Day Years [...] Visit [facility] [address] [place] [phone] Jamison Avila MD [address] [place] [address] [place] [address] documented as of this encounter Visit Diagnoses Not on filedocumented in this encounter Care Teams Financial Reporting Accountant Relationship Specialty Start Date End Date Aretha Bain NP [address] [place] [address] 1 [place] [address] PCP - General Nurse Practitioner 04/12/25 documented as of this encounter
--- OUTSIDE RECORDS SUMMARY | 2025-06-25 09:10 | XMS_ITS | Encounter Summary ---
Author Organization [facility] Address [address] [facility] [address] [place] [address] Phone Care Team Providers Care Movable Bulkhead Installer Name Role Phone Demond Roger MD Unavailable [phone] FeltmateTianna MD Unavailable [phone] Yasmeen Ward MD Unavailable [email or web address] Meghna Parson MD Primary Care Provi vipin CarltonMacho gary W DO Unavailable [phone] Camila Nayak PRINTING SUPERVISOR Unavailable [phone] Gail, Mile UNIVERSITY DEMONSTRATOR Unavailable Marian Alicia MD Primary Care Provider [phone] Encounter Details Date Type Department Care Team (Late st Contact Info) Description 08/25/2021 Procedure Pass [facility] [address] [place], [place] [id number] Social History Tobacco Use Types Packs/Day Years [...] documented as of this encounter Care Teams Movable Bulkhead Installer Relationship Specialty Start Date End Date Meghna Parson MD [email or web address] PCP - General Internal Medicine 12/31/20 01/04/22 Marian Alicia MD [address] [address] [email or web address] PCP - General Family Medicine 01/05/22 Demond Roger MD [address] [place] [address] [email or web address] Historical LMR Provider 02/24/15 10/21/21 Tianna Coello MD [address] [place] [address] [email or web address] Historical LMR Provider 02/24/15 10/21/21 Yasmeen Ward MD [email or web address] Historical LMR Provider 02/24/1510/21 Macho Vincent DO [address] [place] [address] [email or web address] Primary Oncologist Hematology and Oncology 09/13/21 Camila Nayak FNP [address] [place] [address] [email or web address] Nurse Practitioner Medical Oncology 11/03/21 Mile Reynolds CNP [address] [place] [address] [email or web address] Nurse Practitioner Medical Oncology 11/03/21 documented as of this encounter Additional Source Comments The information contained in this document represents components of the legal health record. It is not the complete legal health record.[facility]
--- OUTSIDE RECORDS SUMMARY | 2025-06-25 09:10 | XMS_ITS | Encounter Summary ---
Author Organization [facility] Address [address] [facility] [address] [place] [address] Phone Care Team Providers Care Section Crews Activities Clerk Name Role Phone Demond Roger MD Unavailable [phone] FeltmateTianna MD Unavailable [phone] Yasmeen Ward MD Unavailable [email or web address] Meghna Parson MD Primary Care Provi vipin CarltonMacho gary W DO Unavailable Camila Nayak HAMMER MILL OPERATOR Unavailable Pack, Mile CARPENTER PACKING Unavailable Marian Alicia MD Primary Care Provider [phone] Encounter Details Date Type Department Care Team (Late st Contact Info) Description 10/03/2021 Transcribe Orders Virtual Department 30 [place] [address] Meghna Parson MD [address] [place], [place] [id number] [email or web address] Exposure to COVID-19 virus (Primary Dx) Social [...] be available within 24 to 48 hrs. [facility] Symptomatic? NO [facility] Other 10/04/2021 12:5 8 PM EST 10/04/2021 2:19 PM EST us Meghna Parson MD BODY FLUIDS AND STO OLS ORDERABLES Final Result Performing Organization Address City/State/[facility] Co de Phone Number [address] [address] [facility] [address] [place] [address] documented in this encounter Visit Diagnoses Diagnosis [...] documented as of this encounter Care Teams Section Crews Activities Clerk Relationship Specialty Start Date End Date Meghna Parson MD [email or web address] PCP - General Internal Medicine 12/31/20 01/04/22 Marian Alicia MD [address] [place] [address], [address] [place] [address] [email or web address] PCP - General Family Medicine 01/05/22 Demond Roger MD [address] [place] [address] [email or web address] Historical LMR Provider 02/24/15 10/21/21 Tianna Coello MD [address] [place] [address] [email or web address] Historical LMR Provider 02/24/15 10/21/21 Yasmeen Ward MD [email or web address] Historical LMR Provider 02/24/1510/21 Macho Vincent DO [address] [place] [address] [email or web address] Primary Oncologist Hematology and Oncology 09/13/21 Camila Nayak FNP [address] [place] [address] [email or web address] Nurse Practitioner Medical Oncology 11/03/21 Mile Reynolds CNP [address] [place] [address] [email or web address] Nurse Practitioner Medical Oncology 11/03/21 documented as of this encounter Additional Source Comments The information contained in this document represents components of the legal health record. It is not the complete legal health record.[facility]
--- OUTSIDE RECORDS SUMMARY | 2025-06-25 09:10 | XMS_ITS | Encounter Summary ---
Author Organization [facility] Address [address] [facility] [address] [place] [address] Phone Care Team Providers Care Archivist Economic History Name Role Phone Dell Chiang MD Primary Care Provider [phone] Demond Roger MD Unavailable [phone] FeltTianna ng MD Unavailable [phone] Yasmeen Ward MD Unavailable [email or web address] Meghna Parson MD Primary Care Provi vipin Madalyn Rogers MD Primary Care Provide r Meghna Parson MD Primary Care Provi vipin Macho Vincent W DO Unavailable [phone] Camila Nayak DIRECTOR AND PROFESSOR Unavailable [phone] Mile Reynolds PROFESSIONAL ATHLETES COACH Unavailable Marian Alicia MD Primary Care Provider [phone] Encounter Details Date Type Department Care Team (Late st Contact Info) Description 08/03/2017 Ancillary Orders [facility] [place] [facility], X-Ray - [address] [address] Meghna Parson MD 6 [place] [address] Breast screening Social History Tobacco Use Types [...] There are scattered fibroglandular densities. POS - [id number] Narrative 09/06/2017 8:52 AM EST Standard digital [...] and compared with multiple prior studies, most nceuyjgm79/24/2016, with utilization of computer-aided detection. The breasts are composed of scattered fibroglandular densities. Thestromal markings are essentially unchanged in overall appearance anddistribution. No dominant spiculated mass, suspicious clusteredmicrocalcifications, or focal zone of pathologic skin thickening orretraction are noted to have arisen in the interim. IMPRESSION: No mammographic evidence of malignancy. BI-RADS CATEGORY: 1 - Negative. DENSITY: There are scattered fibroglandular densities. POS - [id number] Meghna Parson MD IMG MG EXAMS Fin [...] documented as of this encounter Care Teams Archivist Economic History Relationship Specialty Start Date End Date Dell Chiang MD [address] [facility] [address] [place] [address] PCP - General 02/18/15 08/18/17 Meghna Parson MD [email or web address] PCP - General Internal Medicine 08/19/17 11/29/19 Madalyn Rogers MD [address] [place] [address] PCP - General 11/30/19 12/30/20 Meghna Parson MD [email or web address] PCP - General Internal Medicine 12/31/20 01/04/22 Marian Alicia MD [address] [place] [address] 7 [place] [address] [email or web address] PCP - General Family Medicine 01/05/22 Demond Roger MD [address] [place] [address] [email or web address] Historical LMR Provider 02/24/15 10/21/21 Tianna Coello MD [address] [place] [address] [email or web address] Historical LMR Provider 02/24/15 10/21/21 Yasmeen Ward MD [email or web address] Historical LMR Provider 02/24/1510/21 Macho Vincent DO [address] [place] [address] [email or web address] Primary Oncologist Hematology and Oncology 09/13/21 Camila Nayak FNP [address] [place] [address] [email or web address] Nurse Practitioner Medical Oncology 11/03/21 Mile Reynolds CNP [address] [place] [address] [email or web address] Nurse Practitioner Medical Oncology 11/03/21 documented as of this encounter Additional Source Comments The information contained in this document represents components of the legal health record. It is not the complete legal health record.[facility]
--- OUTSIDE RECORDS SUMMARY | 2025-06-25 09:10 | XMS_ITS | Encounter Summary ---
Author Organization [facility] Address [address] [facility] [address] [place] [address] Phone Care Team Providers Care Bicycle Courier Name Role Phone Dell Chiang MD Primary Care Provider [phone] Demond Roger MD Unavailable [phone] FeltTianna ng MD Unavailable [phone] Yasmeen Ward MD Unavailable [email or web address] Meghna Parson MD Primary Care Provi vipin Madalyn Rogers MD Primary Care Provide r Meghna Parson MD Primary Care Provi vipin Macho Vincent W DO Unavailable Camila Nayak LADLE POURER Unavailable Mile Reynolds INDUSTRIAL ROOF PLUMBER Unavailable Marian Alicia MD Primary Care Provider [phone] Encounter Details Date Type Department Care Team (Late st Contact Info) Description 08/04/2017 Ancillary Orders [address] [address] Meghna Parson MD 6 [place] [address] [email or web address] Social History Tobacco Use Types Packs/Day Years [...] documented as of this encounter Care Teams Bicycle Courier Relationship Specialty Start Date End Date Dell Chiang MD [address] [facility] [address] [place] [address] PCP - General 02/18/15 08/18/17 Meghna Parson MD [email or web address] PCP - General Internal Medicine 08/19/17 11/29/19 Madalyn Rogers MD [address] [place] [address] PCP - General 11/30/19 12/30/20 Meghna Parson MD [email or web address] PCP - General Internal Medicine 12/31/20 01/04/22 Marian Alicia MD [address] [place] [address], [address] [place] [address] [email or web address] PCP - General Family Medicine 01/05/22 Demond Roger MD [address] [place] [address] [email or web address].[email or web address] Historical LMR Provider 02/24/15 10/21/21 Tianna Coello MD [address] [place] [address] [email or web address] Historical LMR Provider 02/24/15 10/21/21 Yasmeen Ward MD [email or web address] Historical LMR Provider 02/24/1510/21 Macho Vincent DO [address] [place] [address] [email or web address] Primary Oncologist Hematology and Oncology 09/13/21 Camila Nayak FNP [address] [place] [address] [email or web address] Nurse Practitioner Medical Oncology 11/03/21 Mile Reynolds CNP [address] [place] [address] [email or web address] Nurse Practitioner Medical Oncology 11/03/21 documented as of this encounter Additional Source Comments The information contained in this document represents components of the legal health record. It is not the complete legal health record.[facility]
--- OUTSIDE RECORDS SUMMARY | 2025-06-25 09:10 | XMS_ITS | Encounter Summary ---
Author Organization [facility] Address [address] [facility] [address] [place] [address] Phone Care Team Providers Care Web Applications Developer Name Role Phone Demond Roger MD Unavailable [phone] FeltmateTianna MD Unavailable [phone] Yasmeen Ward MD Unavailable [email or web address] Meghna Parson MD Primary Care Provi vipin CarltonMacho gary W DO Unavailable [phone] Camila Nayak GUEST SERVICE MANAGER Unavailable GailTristanen FUND ACCOUNTING MANAGER Unavailable Marian Alicia MD Primary Care Provider [phone] Encounter Details Date Type Department Care Team (Late st Contact Info) Description 10/10/2021 Ancillary Orders Virtual Department 30 [place] [address] Meghna Parson MD [address] [place], [place] [phone] [email or web address] Low back pain, unspecified back pain laterality, [...] documented as of this encounter Care Teams Web Applications Developer Relationship Specialty Start Date End Date Meghna Parson MD [email or web address] PCP - General Internal Medicine 12/31/20 01/04/22 Marian Alicia MD [address] [place] [address] 7 [place] [address] [email or web address] PCP - General Family Medicine 01/05/22 Demond Roger MD [address] [place] [address] [email or web address] Historical LMR Provider 02/24/15 10/21/21 Tianna Coello MD [address] [place] [address] [email or web address] Historical LMR Provider 02/24/15 10/21/21 Yasmeen Ward MD [email or web address] Historical LMR Provider 02/24/1510/21 Macho Vincent DO 30 [place] [address] [email or web address] Primary Oncologist Hematology and Oncology 09/13/21 Camila Nayak FNP [address] [place] [address] [email or web address] Nurse Practitioner Medical Oncology 11/03/21 Mile Reynolds CNP [address] [place] [address] [email or web address] Nurse Practitioner Medical Oncology 11/03/21 documented as of this encounter Additional Source Comments The information contained in this document represents components of the legal health record. It is not the complete legal health record.[facility]
--- OUTSIDE RECORDS SUMMARY | 2025-06-25 09:10 | XMS_ITS | Encounter Summary ---
Author Organization [facility] Address [address] [facility] [address] [place] [address] Phone Care Team Providers Care Floral Manager Name Role Phone Dell Chiang MD Primary Care Provider [phone] Demond Roger MD Unavailable [phone] FeltTianna ng MD Unavailable [phone] Yasmeen Ward MD Unavailable [email or web address] Meghna Parson MD Primary Care Provi vipin Madalyn Rogers MD Primary Care Provide r Meghna Parson MD Primary Care Provi vipin Macho Vincent W DO Unavailable Camila Nayak EXECUTIVE RELATIONS SPECIALIST Unavailable Mile Reynolds DIE CASTING MACHINE OPERATOR Unavailable Marian Alicia MD Primary Care Provider [phone] Encounter Details Date Type Department Care Team (Late st Contact Info) Description 08/04/2017 Ancillary Orders [address] [address] Meghna Parson MD 6 [place] [address] [email or web address] Social History Tobacco Use Types Packs/Day Years [...] documented as of this encounter Care Teams Floral Manager Relationship Specialty Start Date End Date Dell Chiang MD [address] [facility] [address] [place] [address] PCP - General 02/18/15 08/18/17 Meghna Parson MD [email or web address] PCP - General Internal Medicine 08/19/17 11/29/19 Madalyn Rogers MD [address] [place] [address] PCP - General 11/30/19 12/30/20 Meghna Parson MD [email or web address] PCP - General Internal Medicine 12/31/20 01/04/22 Marian Alicia MD [address] [place] [address], [address] [place] [address] [email or web address] PCP - General Family Medicine 01/05/22 Demond Roger MD [address] [place] [address] [email or web address].[facility] Historical LMR Provider 02/24/15 10/21/21 iTanna Coello MD [address] [place] [address] [email or web address] Historical LMR Provider 02/24/15 10/21/21 Yasmeen Ward MD [email or web address] Historical LMR Provider 02/24/1510/21 Macho Vincent DO [address] [place] [address] [email or web address] Primary Oncologist Hematology and Oncology 09/13/21 Camila Nayak FNP [address] [place] [address] [email or web address] Nurse Practitioner Medical Oncology 11/03/21 Mile Reynolds CNP [address] [place] [address] [email or web address] Nurse Practitioner Medical Oncology 11/03/21 documented as of this encounter Additional Source Comments The information contained in this document represents components of the legal health record. It is not the complete legal health record.[facility]
--- OUTSIDE RECORDS SUMMARY | 2025-06-25 09:10 | XMS_ITS | Encounter Summary ---
Author Organization [facility] Address [address] [facility] [address] [place] [address] Phone Care Team Providers Care Rn Nursery Name Role Phone Demond Roger MD Unavailable [phone] FeltmateTianna MD Unavailable [phone] Yasmeen Ward MD Unavailable [email or web address] Meghna Parson MD Primary Care Provi vipin CarltonMacho gary W DO Unavailable [phone] Camila Nayak HEDIS ANALYST Unavailable GailTristanen ELEVATOR ADJUSTER Unavailable Marian Alicia MD Primary Care Provider [phone] Encounter Details Date Type Department Care Team (Late st Contact Info) Description 10/04/2021 Transcribe Orders Virtual Department 30 [place] [address] Meghna Parson MD [address] [place], [place] [phone] [email or web address] Low back pain, unspecified back pain laterality, [...] documented as of this encounter Care Teams Rn Nursery Relationship Specialty Start Date End Date Mehgna Parsno MD [email or web address] PCP - General Internal Medicine 12/31/20 01/04/22 Marian Alicia MD [address] [place] [address], [address] [place] [address] [email or web address] PCP - General Family Medicine 01/05/22 Demond Roger MD [address] [place] [address] [email or web address] Historical LMR Provider 02/24/15 10/21/21 Tianna Coello MD [address] [place] [address] [email or web address] Historical LMR Provider 02/24/15 10/21/21 Yasmeen Ward MD [email or web address] Historical LMR Provider 02/24/1510/21 Macho Vincent DO [address] [place] [address] [email or web address] Primary Oncologist Hematology and Oncology 09/13/21 Camila Nayak FNP [address] [place] [address] [email or web address] Nurse Practitioner Medical Oncology 11/03/21 Mile Reynolds CNP [address] [place] [address] [email or web address] Nurse Practitioner Medical Oncology 11/03/21 documented as of this encounter Additional Source Comments The information contained in this document represents components of the legal health record. It is not the complete legal health record.[facility]
--- OUTSIDE RECORDS SUMMARY | 2025-06-25 09:11 | XMS_ITS | Encounter Summary ---
Author Organization [facility] Address [address] [facility] [address] [place] [address] Phone Care Team Providers Care Supervisor Shrimp Pond Name Role Phone Demond Roger MD Unavailable [phone] FeltTianna ng MD Unavailable [phone] Yasmeen Ward MD Unavailable [email or web address] Meghna Parson MD Primary Care Provi vipin Madalyn Rogers MD Primary Care Provide r Meghna Parson MD Primary Care Provi vipin Macho Vincent DO Unavailable [phone] Camila Nayak SUBSCRIPTION AGENT Unavailable [phone] Mile Reynolds LOG RAFT WORKER Unavailable Marian Alicia MD Primary Care Provider [phone] Encounter Details Date Type Department Care Team (Late st Contact Info) Description 11/12/2017 Ancillary Orders Virtual Department 30 [place] [address] Meghna Parson MD [address] [place], [place] [phone] [email or web address] Social History Tobacco Use Types Packs/Day Years [...] documented as of this encounter Care Teams Supervisor Shrimp Pond Relationship Specialty Start Date End Date Meghna Parson MD [email or web address] PCP - General Internal Medicine 08/19/17 11/29/19 Madalyn Rogers MD [address] [place] [address] PCP - General 11/30/19 12/30/20 Meghna Parson MD [email or web address] PCP - General Internal Medicine 12/31/20 01/04/22 Marian Alicia MD [address] [place] [address], [address] [place] [address] PCP - General Family Medicine 01/05/22 Demond Roger MD [address] [place] [address] [email or web address] Historical LMR Provider 02/24/15 10/21/21 Tianna Coello MD [address] [place] [address] [email or web address] Historical LMR Provider 02/24/15 10/21/21 Yasmeen Ward MD [email or web address] Historical LMR Provider 02/24/1510/21 Macho Vincent DO [address] [place] [address] [email or web address] Primary Oncologist Hematology and Oncology 09/13/21 Camila Nayak FNP [address] [place] [address] [email or web address] Nurse Practitioner Medical Oncology 11/03/21 Mile Reynolds CNP [address] [place] [address] [email or web address] Nurse Practitioner Medical Oncology 11/03/21 documented as of this encounter Additional Source Comments The information contained in this document represents components of the legal health record. It is not the complete legal health record.[facility]
--- OUTSIDE RECORDS SUMMARY | 2025-06-25 09:11 | XMS_ITS | Encounter Summary ---
Author Organization [facility] Address [address] [facility] [address] [place] [address] Phone Care Team Providers Care Oyster Planter Name Role Phone Demond Roger MD Unavailable [phone] FeltmateTianna MD Unavailable [phone] Yasmeen Ward MD Unavailable [email or web address] Meghna Parson MD Primary Care Provi vipin CarltonMacho gary W DO Unavailable Camila Nayak TOOTH CUTTER Unavailable Pack, Mile INSIDE FINISHER Unavailable Marian Alicia MD Primary Care Provider [phone] Encounter Details Date Type Department Care Team (Late st Contact Info) Description 05/18/2021 Ancillary Orders Virtual Department 30 [place] [address] Meghna Parson MD [address] [place], [place] [id number] [email or web address] Pain and swelling of left lower leg; [...] documented as of this encounter Care Teams Oyster Planter Relationship Specialty Start Date End Date Meghna Parson MD [email or web address] PCP - General Internal Medicine 12/31/20 01/04/22 Marian Alicia MD [address] [place] [address], [address] [place] [address] [email or web address] PCP - General Family Medicine 01/05/22 Demond Roger MD [address] [place] [address] [email or web address] Historical LMR Provider 02/24/15 10/21/21 Tianna Coello MD [address] [place] [address] [email or web address] Historical LMR Provider 02/24/15 10/21/21 Yasmeen Ward MD [email or web address] Historical LMR Provider 02/24/1510/21 Macho Vincent DO [address] [place] [address] [email or web address] Primary Oncologist Hematology and Oncology 09/13/21 Camila Nayak FNP [address] [place] [address] [email or web address] Nurse Practitioner Medical Oncology 11/03/21 Mile Reynolds CNP [address] [place] [address] [email or web address] Nurse Practitioner Medical Oncology 11/03/21 documented as of this encounter Additional Source Comments The information contained in this document represents components of the legal health record. It is not the complete legal health record.[facility]
--- OUTSIDE RECORDS SUMMARY | 2025-06-25 09:11 | XMS_ITS | Encounter Summary ---
Author Organization [facility] Address [address] [facility] [address] [place] [address] Phone Care Team Providers Care Orchid Hand Name Role Phone Demond Roger MD Unavailable [phone] FeltmateTianna MD Unavailable [phone] Yasmeen Ward MD Unavailable [email or web address] Meghna Parson MD Primary Care Provi vipin CarltonMacho gary W DO Unavailable [phone] Camila Nayak BOND TRADER Unavailable GailTristanen COMPENSATION MANAGER Unavailable Marian Alicia MD Primary Care Provider [phone] Encounter Details Date Type Department Care Team (Late st Contact Info) Description 05/18/2021 Transcribe Orders Virtual Department 30 [place] [address] Meghna Parson MD [address] [place], [place] [phone] [email or web address] Cellulitis, unspecified cellulitis site (Primary Dx); Pain [...] documented as of this encounter Care Teams Orchid Hand Relationship Specialty Start Date End Date Meghna Parson MD [email or web address] PCP - General Internal Medicine 12/31/20 01/04/22 Marian Alicia MD [address] [place] [address], [address] [place] [address] [email or web address] PCP - General Family Medicine 01/05/22 Demond Roger MD [address] [place] [address] [email or web address] Historical LMR Provider 02/24/15 10/21/21 Tianna Coello MD [address] [place] [address] [email or web address] Historical LMR Provider 02/24/15 10/21/21 Yasmeen Ward MD [email or web address] Historical LMR Provider 02/24/1510/21 Macho Vincent DO [address] [place] [address] [email or web address] Primary Oncologist Hematology and Oncology 09/13/21 Camila Nayak FNP [address] [place] [address] [email or web address] Nurse Practitioner Medical Oncology 11/03/21 Mile Reynolds CNP [address] [place] [address] [email or web address] Nurse Practitioner Medical Oncology 11/03/21 documented as of this encounter Additional Source Comments The information contained in this document represents components of the legal health record. It is not the complete legal health record.[facility]
--- OUTSIDE RECORDS SUMMARY | 2025-06-25 09:11 | XMS_ITS | Encounter Summary ---
Author Organization [facility] Address [address] [facility] [address] [place] [address] Phone Care Team Providers Care Installers Mechanical Name Role Phone Dell Chiang MD Primary Care Provider [phone] Demond Roger MD Unavailable [phone] FeltTianna gn MD Unavailable [phone] Yasmeen Ward MD Unavailable [email or web address] Meghna Parson MD Primary Care Provi vipin Madalyn Rogers MD Primary Care Provide r Meghna Parson MD Primary Care Provi vipin Macho Vincent DO Unavailable Camila Nayak PHARM TECH Unavailable Mile Reynolds DISTRICT LOSS PREVENTION MANAGER Unavailable Marian Alicia MD Primary Care Provider [phone] Encounter Details Date Type Department Care Team (Late st Contact Info) Description 08/05/2017 Transcribe Orders [facility] [address] [place] [address] Steven Trinidad DO [address] [facility], [address] [place] [address] [phone] (work) [email or web address] Severe persistent asthma, unspecified whether complicated (Primary [...] documented as of this encounter Care Teams Installers Mechanical Relationship Specialty Start Date End Date Dell Chiang MD [address] [facility] [address] [place] [address] PCP - General 02/18/15 08/18/17 Meghna Parson MD [email or web address] PCP - General Internal Medicine 08/19/17 11/29/19 Madalyn Rogers MD [address] [place] [address] PCP - General 11/30/19 12/30/20 Meghna Parson MD [email or web address] PCP - General Internal Medicine 12/31/20 01/04/22 Marian Alicia MD [address] [place] [address], [address] [place] [address] [email or web address] PCP - General Family Medicine 01/05/22 Demond Roger MD [address] [place] [address] [email or web address] Historical LMR Provider 02/24/15 10/21/21 Tianna Coello MD [address] [place] [address] [email or web address] Historical LMR Provider 02/24/15 10/21/21 Yasmeen Ward MD [email or web address] Historical LMR Provider 02/24/1510/21 Macho Vincent DO [address] [place] [address] [email or web address] Primary Oncologist Hematology and Oncology 09/13/21 Camila Nayak FNP [address] [place] [address] [email or web address] Nurse Practitioner Medical Oncology 11/03/21 Mile Reynolds CNP [address] [place] [address] [email or web address] Nurse Practitioner Medical Oncology 11/03/21 documented as of this encounter Additional Source Comments The information contained in this document represents components of the legal health record. It is not the complete legal health record.[facility]
--- OUTSIDE RECORDS SUMMARY | 2025-06-25 09:11 | XMS_ITS | Encounter Summary ---
Author Organization [facility] Address [address] [facility] [address] [place] [address] Phone Care Team Providers Care Library Clerk Talking Books Name Role Phone Dell Chiang MD Primary Care Provider [phone] Demond Roger MD Unavailable [phone] FeltTianna ng MD Unavailable [phone] Yasmeen Ward MD Unavailable [email or web address] Meghna Parson MD Primary Care Provi vipin Madalyn Rogers MD Primary Care Provide r Meghna Parson MD Primary Care Provi vipin Macho Vincent W DO Unavailable [phone] Camila Nayak KERRICK KLEANER OPERATOR Unavailable Mile Reynolds ADOLESCENT PSYCHIATRIST Unavailable Marian Alicia MD Primary Care Provider [phone] Encounter Details Date Type Department Care Team (Late st Contact Info) Description 08/13/2017 Ancillary Orders [facility] Department 30 [place] [address] Meghna Parson MD 7[address] [place], [place] [phone] [email or web address] Chest discomfort Social History Tobacco Use Types [...] pharynx on clinical exam. COMPARISON: None FINDINGS: Casting Carrier AP view of the abdomen shows a [...] pharynx on clinical exam. COMPARISON: None FINDINGS: Casting Carrier AP view of the abdomen shows a [...] documented as of this encounter Care Teams Library Clerk Talking Books Relationship Specialty Start Date End Date Dell Chiang MD [address] [place] [address] PCP - General 02/18/15 08/18/17 Meghna Parson MD [email or web address]) PCP - General Internal Medicine 08/19/17 11/29/19 Madalyn Rogers MD [address] [place] [address] PCP - General 11/30/19 12/30/20 Meghna Parson MD [email or web address] ([employer]) PCP - General Internal Medicine 12/31/20 01/04/22 Marian Alicia MD [address] [place] [address] 7 [place] [address] [email or web address] PCP - General Family Medicine 01/05/22 Demond Roger MD [address] [place] [address] [email or web address] Historical LMR Provider 02/24/15 10/21/21 Tianna Coello MD [address] [place] [address] [email or web address] Historical LMR Provider 02/24/15 10/21/21 Yasmeen Ward MD [email or web address] Historical LMR Provider 02/24/1510/21 Macho Vincent DO 30 [place] [address] [email or web address]. [facility] Primary Oncologist Hematology and Oncology 09/13/21 Camila Nayak FNP 30 [place] [address] [email or web address] Nurse Practitioner Medical Oncology 11/03/21 Mile Reynolds CNP [address] [place], [place] [address] [email or web address] Nurse Practitioner Medical Oncology 11/03/21 documented as of this encounter Additional Source Comments The information contained in this document represents components of the legal health record. It is not the complete legal health record.[facility]
--- OUTSIDE RECORDS SUMMARY | 2025-06-25 09:11 | XMS_ITS | Clinical Summary ---
Author Organization [facility] Address [address] [address] Phone Care Team Providers Care Heel Sander Rubber Name Role Phone Macho Vincent DO Unavailable [phone] Camila Nayak CIRCLE SHEAR OPERATOR Unavailable [phone] PackMile ELECTROPLATING WORKER Unavailable Marian Alicia MD Primary Care Provider [phone] Allergies Active Allergy Reactions Criticality Noted Date [...] a history of DVTs. She has a Nice filter in place and she is also [...] fitting for new mask. Input referral to [facility] sleep med. Assessment & Plan (04/02/2018 6:07 [...] issues or concerns. She understands and agrees. 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 Assessment & Plan (04/17/2022 9:27 AM EDT): Hx of, now stable, though w/ ongoing complications, s/p IVC and albertina filter. Assessment & Plan (10/18/2021 5:01 PM EST): She is on anticoagulation and managed by hematology. I have no additional pulmonary recommendation at this time. I do not believe repeat pulmonary function studies would alter management in this context. That being said, I will ask my office staff to obtain images and records from [facility] and plan to review them once [...] Type Department Care Team Description 06/03/2025 Telephone Orbiter [facility] General Surgical Care [address] [...] Gets the flu shot elsewhere., Ordered By: [id number]) Pneumococcal polysaccharide PPSV23 05/25/2008, Pneumococcal, Unspecified Formulation [...] (07/27/2023 8:13 AM EDT) HDL 56 mg/dL [facility] Comment: Interpretation <40 mg/dL: Low HDL cholesterol (major risk factor for CHD) Greater than or equal to 60 mg/dL: High HDL cholesterol ( negative risk factor for CHD) HDL - cholesterol is affected by a number of factors, e.g. smoking, excerise, hormones, sex and age. CHOLESTEROL 271(H) 0 - 240 mg/dL [facility] TRIGLYCERIDES 193(H) 30 - 160 mg/dL [facility] LDL 176(H) 50 - 129 mg/dL [facility] Comment: LDL levels in terms of risk for coronary heart disease: <100 mg/dL: Optimal 100-129 mg/dL: Near or above optimal 130-159 mg/dL: Borderline high 160-189 mg/dL: High >190 mg/dL: Very High CARDIAC RISK RATIO 4.8(H) 3.3 - 4.4 C [facility] Blood 07/27/2023 8:13 AM EDT 07/27/2023 8:21 AM EDT us Marian Alicia MD LAB BLOOD ORDERABLES Bonnie l Result Performing Organization Address City/State/[facility] Co de Phone Number [address] [address] * BI MAMMOGRAM SCREENING WITH TOMOSYNTHESIS WITH [...] Most Recently Relevant to Health Maintenance Insurance [facility] TOGETHER [facility] [place] [address] [place] [address] [place] [address] [facility]GETHER [facility] Advance Directives For more information, please contact: [phone] (9AM - 5PM Est[place]/[facility], Saturday-Saturday) Documents on File Type Date Recorded 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 anation Advance Directive - Non Epic LMR 09/13/2011 12:00 AM Care Teams Heel Sander Rubber Relationship Specialty Start Date End Date Marian Alicia MD [address] [place] [address], [address] [place] [address] PCP - General Family Medicine 01/05/22 Macho Vincent DO [address] [place] [address] [email or web address] Primary Oncologist Hematology and Oncology 09/13/21 Camila Nayak FNP [address] [place] [address] [email or web address] Nurse Practitioner Medical Oncology 11/03/21 Mile Reynolds CNP [address] [place] [address] [email or web address] Nurse Practitioner Medical Oncology 11/03/21 Additional Source Comments The information contained in this document represents components of the legal health record. It is not the complete legal health record.[facility]
--- OUTSIDE RECORDS SUMMARY | 2025-06-25 09:11 | XMS_ITS | Encounter Summary ---
Author Organization [facility] Address [address] [place] [address] Phone Care Team Providers Care Body And Frame Man Name Role Phone Macho Vincent DO Unavailable Camila Nayak SOCIAL SERVICE ASSISTANT Unavailable PackMile SENIOR BUSINESS ARCHITECT Unavailable Marian Alicia MD Primary Care Provider [phone] Encounter Details Date Type Department Care Team (Late st Contact Info) Description 08/13/2022 Procedure Pass [address] [address] Social History Tobacco Use Types Packs/Day Years [...] high school, GED, job training, learning the Irish language, technical skills, or developing parenting skills)? [...] documented as of this encounter Care Teams Body And Frame Man Relationship Specialty Start Date End Date Marian Alicia MD [address] [place] [address], [facility] 7 [place], [place] [phone] PCP - General Family Medicine 01/05/22 Macho Vincent DO [address] [place] [address] [email or web address] Primary Oncologist Hematology and Oncology 09/13/21 Camila Nayak FNP [address] [place] [address] [email or web address] Nurse Practitioner Medical Oncology 11/03/21 Mile Reynolds CNP [address] [place] [address] [email or web address] Nurse Practitioner Medical Oncology 11/03/21 documented as of this encounter Additional Source Comments The information contained in this document represents components of the legal health record. It is not the complete legal health record.[facility]
--- OUTSIDE RECORDS SUMMARY | 2025-06-25 09:11 | XMS_ITS | Encounter Summary ---
Author Organization [facility] Address [address] [facility] [address] [place] [address] Phone Care Team Providers Care General Service Officer Name Role Phone Dell Chiang MD Primary Care Provider [phone] Demond Roger MD Unavailable [phone] FeltTianna ng MD Unavailable [phone] Yasmeen Ward MD Unavailable [email or web address] Meghna Parson MD Primary Care Provi vipin Madalny Rogers MD Primary Care Provide r Meghna Parson MD Primary Care Provi vipin Macho Vincent W DO Unavailable [phone] Camila Nayak MICROFILMER Unavailable Mile Reynolds TOP LIFT NAILER Unavailable Marian Alicia MD Primary Care Provider [phone] Encounter Details Date Type Department Care Team (Late st Contact Info) Description 08/04/2017 Ancillary Orders [address] [address] Meghna Parson MD 6 [place] [address] [email or web address] Cystic thyroid nodule Social History Tobacco Use [...] documented as of this encounter Care Teams General Service Officer Relationship Specialty Start Date End Date Dell Chiang MD [address] [facility] [address] [place] [address] PCP - General 02/18/15 08/18/17 Meghna Parson MD [email or web address] PCP - General Internal Medicine 08/19/17 11/29/19 Madalyn Rogers MD [address] [place] [address] PCP - General 11/30/19 12/30/20 Meghna Parson MD [email or web address] PCP - General Internal Medicine 12/31/20 01/04/22 Marian Alicia MD [address] [place] [address] 7 [place] [address] [email or web address] PCP - General Family Medicine 01/05/22 Demond Roger MD [address] [place] [address] [email or web address] Historical LMR Provider 02/24/15 10/21/21 Tianna Coello MD [address] [place] [address] [email or web address] Historical LMR Provider 02/24/15 10/21/21 Yasmeen Ward MD [email or web address] Historical LMR Provider 02/24/1510/21 Macho Vincent DO 30 [place] [address] [email or web address]. [facility] Primary Oncologist Hematology and Oncology 09/13/21 Camila Nayak FNP 30 [place] [address] [email or web address] Nurse Practitioner Medical Oncology 11/03/21 Mile Reynolds CNP [address] [place] [address] [email or web address] Nurse Practitioner Medical Oncology 11/03/21 documented as of this encounter Additional Source Comments The information contained in this document represents components of the legal health record. It is not the complete legal health record.[facility]
--- OUTSIDE RECORDS SUMMARY | 2025-06-25 09:11 | XMS_ITS | Encounter Summary ---
Author Organization [facility] Address [address] [employer] [address] [address] Phone Care Team Providers Care Research Greenhouse Supervisor Name Role Phone Meghna Parson MD Primary Care Provi vipin Macho Vincent W DO Unavailable [phone] Camila Nayak REHABILITATION NURSE Unavailable [phone] Pack, Mile AUTOMOBILE LEASING SUPERVISOR Unavailable Marian Alicia MD Primary Care Provider [phone] Encounter Details Date Type Department Care Team (Late st Contact Info) Description 11/07/2021 Ancillary Orders [facility] [address] [place], [place] [id number] System, Provider Not In, [place] [address] Social History Tobacco Use Types Packs/Day Years [...] as of this encounter Care Teams Research Greenhouse Supervisor Relationship Specialty Start Date End Date Meghna Parson MD [email or web address] PCP - General Internal Medicine 12/31/20 01/04/22 Marian Alicia MD [address] [place] [address], [address] [place] [address] [email or web address] PCP - General Family Medicine 01/05/22 Macho Vincent DO [address] [place] [address] [email or web address] U Primary Oncologist Hematology and Oncology 09/13/21 Camila Nayak FNP [address] [place] [address] [email or web address] Nurse Practitioner Medical Oncology 11/03/21 Mile Reynolds CNP [address] [place] [address] Nurse Practitioner Medical Oncology 11/03/21 documented as of this encounter Additional Source Comments The information contained in this document represents components of the legal health record. It is not the complete legal health record.[facility]
--- OUTSIDE RECORDS SUMMARY | 2025-06-25 09:11 | XMS_ITS | Encounter Summary ---
Author Organization [facility] Address [address] [address] Phone Care Team Providers Care Family Assistant Name Role Phone Meghna Parson MD Primary Care Provi vipin Macho Vincent W DO Unavailable [phone] Camila Nayak TEXTILE CLOTHING AND FOOTWEAR MECHANIC Unavailable [phone] NEEDLE LOOM OPERATOR HELPER Unavailable Marian Alicia MD Primary Care Provider [phone] Encounter Details Date Type Department Care Team (Late st Contact Info) Description 11/07/2021 Ancillary Orders [facility],Outside Imaging [address] [place], [place] [id number] System, Provider [place] In, [place] [address] Social History Tobacco Use Types Packs/Day Years [...] documented as of this encounter Care Teams Family Assistant Relationship Specialty Start Date End Date Meghna Parson MD [email or web address] PCP - General Internal Medicine 12/31/20 01/04/22 Marian Alicia MD [address] [place] [address], [address] [place] [address] [email or web address] PCP - General Family Medicine 01/05/22 Macho Vincent DO [address] [place] [address] [email or web address] Primary Oncologist Hematology and Oncology 09/13/21 Camila Nayak FNP [address] [place] [address] [email or web address] Nurse Practitioner Medical Oncology 11/03/21 Mile Reynolds CNP [address] [place] [address] Nurse Practitioner Medical Oncology 11/03/21 documented as of this encounter Additional Source Comments The information contained in this document represents components of the legal health record. It is not the complete legal health record.[facility]
--- OUTSIDE RECORDS SUMMARY | 2025-06-25 09:11 | XMS_ITS | Encounter Summary ---
Author Organization [facility] Address [address] [facility] [address] [place] [address] Phone Care Team Providers Care Electrical Integrator Name Role Phone Demond Roger MD Unavailable [phone] FeltTianna ng MD Unavailable [phone] Yasmeen Ward MD Unavailable [email or web address] Meghna Parson MD Primary Care Provi vipin Madalyn Rogers MD Primary Care Provide r Meghna Parson MD Primary Care Provi vipin Macho Vincent DO Unavailable Camila Nayak WAFER PRODUCTION LEAD WORKER Unavailable Mile Reynolds IT INVESTMENT/PORTFOLIO MANAGER Unavailable Marian Alicia MD Primary Care Provider [phone] Encounter Details Date Type Department Care Team (Late st Contact Info) Description 02/13/2018 Transcribe Orders [facility] Laboratory 30 [place] [address] Meghna Parson MD [address] [place], [place] [id number] [email or web address] Fatigue, unspecified type (Primary Dx) Social History [...] VITAMIN B12 410 232 - 1,245 pg/mL [facility] Comment:The reference range had been changed on January 24, 2018 from 243 - 894pg/mL to 232 - 1245 pg/mL. Blood 02/13/2018 10:0 8 AM EDT 02/13/2018 10:14 AM EDT us Meghna Parson MD LAB BLOOD ORDERABLE S Final Result [address] [address] * Iron and iron binding capacity (02/13/2018 10:08 AM EDT) IRON 70 30 - 160 ug/dL [facility] IRON BINDING CAPACITY 229 228 - 428 ug/dL [facility] TRANSFERRIN SATURAT. 31 15 - 50 % [facility] Blood 02/13/2018 10:0 8 AM EDT 02/13/2018 10:14 AM EDT us Meghna Parson MD LAB BLOOD ORDERABLE S Final Result Performing Organization Address City/[facility]/ZIP Co de Phone Number [address] [address] * (ABNORMAL) Ferritin (02/13/2018 10:08 AM EDT) FERRITIN 154(H) 13 - 150 ug/L [facility] Blood 02/13/2018 10:0 8 AM EDT 02/13/2018 10:14 AM EDT Meghna Parson MD LAB BLOOD ORDERABLE S Final Result Performing Organization Address City/[facility]/ZIP Co de Phone Number [address] [address] * CPK (creatine kinase) (02/13/2018 10:08 AM EDT) CREATINE KINASE 173 21 - 215 U/L [facility] Blood 02/13/2018 10:0 8 AM EDT 02/13/2018 10:14 AM EDT Meghna Parson MD LAB BLOOD ORDERABLE S Final Result Performing Organization Address [facility] Co de Phone Number [address] [address] * TSH with reflex (02/13/2018 10:08 AM EDT) TSH 1.69 0.27 - 4.20 uIU/mL [facility] Blood 02/13/2018 10:0 8 AM EDT 02/13/2018 10:14 AM EDT Meghna Parson MD LAB BLOOD ORDERABLE S Final Result Performing Organization Address City/[facility] Co de Phone Number [address] [address] * CBC and differential (02/13/2018 10:08 AM EDT) WBC 7.06 3.40 - 11.20 K/uL [facility] RBC 4.79 3.80 - 4.80 M/uL [facility] HGB 14.2 12.0 - 15.0 g/dL [facility] HCT 43.5 36.0 - 46.0 % [facility] PLT 262 130 - 400 K/uL [facility] MCV 90.8 79.0 - 98.0 fL [facility] MCH 29.6 27.0 - 34.8 pg [facility] MCHC 32.6 31.5 - 36.0 g/dL [facility] RDW 12.8 10.8 - 14.6 % [facility] MPV 9.8 9.4 - 12.4 fl [facility] NRBC 0.00 /100 WBCs [facility] ABSOLUTE NRBC 0.00 K/uL [facility] DIFF METHOD Auto [facility] NEUTS 55.8 45.30 - 77.70 % [facility] LYMPHS 32.7 12.30 - 39.70 % [facility] MONOS 8.4 4.10 - 12.80 % [facility] EOS 2.1 0 - 7.2 % [facility] BASOS 0.4 0 - 2.80 % [facility] Granulocytes, immature (%) 0.6 0.0 - 0.9 % [facility] ABSOLUTE NEUTS 3.94 1.40 - 7.70 K/uL [facility] ABSOLUTE LYMPHS 2.31 0.60 - 3.20 K/uL [facility] ABSOLUTE MONOS 0.59 0.11 - 0.59 K/uL [facility] ABSOLUTE EOS 0.15 0.01 - 0.50 K/uL [facility] ABSOLUTE BASOS 0.03 0.00 - 0.08 K/uL [facility] Granulocytes, immature 0.04 0.00 - 0.05 K/uL [facility] Blood 02/13/2018 10:0 8 AM EDT 02/13/2018 10:14 AM EDT us Meghna Parson MD LAB BLOOD ORDERABLE S Final Result [facility] [address] [place] [address] * (ABNORMAL) Comprehensive metabolic panel (02/13/2018 10:08 AM EDT) Pathologist [facility] SODIUM 146 133 - 146 mmol/L [facility] POTASSIUM 4.2 3.3 - 5.1 mmol/L [facility] CHLORIDE 106 96 - 108 mmol/L [facility] CO2 27 21 - 35 mmol/L [facility] BUN 17 6 - 19 mg/dL [facility] CREATININE 1.00 0.5 - 1.5 mg/dL [facility] GLUCOSE 69(L) 70 - 99 mg/dL [facility] ALBUMIN 3.9 3.9 - 4.8 g/dL [facility] TOTAL PROTEIN 6.4(L) 6.5 - 8.0 g/dL [facility] CALCIUM 9.3 8.4 - 10.3 mg/dL [facility] ALKALINE PHOSPHATASE 77 39 - 117 U/L [facility] TOTAL BILIRUBIN 0.3 0.0 - 1.2 mg/dL [facility] AST 21 0 - 37 U/L [facility] ALT 13 0 - 40 U/L [facility] GLOBULIN 2.5 1 - 4.8 g/dL [facility] EGFR 65 >59 mL/min/1.7 3m2 [facility] Comment:If patient is black, multiply result by 1.159. The eGFR calculation has changed from the MDRD equation to the CKD-EPI equation as of December 17, 2017. ANION GAP 17 10 - 20 mmol/L [facility] Blood 02/13/2018 10:0 8 AM EDT 02/13/2018 10:14 AM EDT us Meghna Parson MD LAB BLOOD ORDERABLE S Final Result [address] [address] documented in this encounter Visit Diagnoses Diagnosis [...] as of this encounter Care Teams Electrical Integrator Relationship Specialty Start Date End Date Meghna Parson MD [email or web address] PCP - General Internal Medicine 08/19/17 11/29/19 Madalyn Rogers MD [address] [place] [address] PCP - General 11/30/19 12/30/20 Meghna Parson MD [email or web address] PCP - General Internal Medicine 12/31/20 01/04/22 Marian Alicia MD [address] [place] [address] [email or web address] PCP - General Family Medicine 01/05/22 Demond Roger MD [address] [place] [address] [email or web address] Historical LMR Provider 02/24/15 10/21/21 Tianna Coello MD [address] [place] [address] [email or web address] Historical LMR Provider 02/24/15 10/21/21 Yasmeen Ward MD [email or web address] Historical LMR Provider 02/24/1510/21 Macho Vincent DO [address] [place] [address] [email or web address] Primary Oncologist Hematology and Oncology 09/13/21 Camila Nayak FNP [address] [place] [address] [email or web address] Nurse Practitioner Medical Oncology 11/03/21 Mile Reynolds CNP [address] [place] [address] [email or web address] Nurse Practitioner Medical Oncology 11/03/21 documented as of this encounter Additional Source Comments The information contained in this document represents components of the legal health record. It is not the complete legal health record.[facility]
--- OUTSIDE RECORDS SUMMARY | 2025-06-25 09:11 | XMS_ITS | Encounter Summary ---
Author Organization [facility] Address [address] [facility] [address] [place] [address] Phone Care Team Providers Care Ict Business Analyst Name Role Phone Demond Roger MD Unavailable [phone] FeltTianna ng MD Unavailable [phone] Yasmeen Ward MD Unavailable [email or web address] Meghna Parson MD Primary Care Provi vipin Madalyn Rogers MD Primary Care Provide r Meghna Parson MD Primary Care Provi vipin Macho Vincent DO Unavailable Camila Nayak WARRANTY COORDINATOR Unavailable Mile Reynolds HORSE SHOW MANAGER Unavailable Marian Alicia MD Primary Care Provider [phone] Encounter Details Date Type Department Care Team (Late st Contact Info) Description 08/31/2019 Ancillary Orders Virtual Department 30 [place] [address] Meghna Parson MD [address] [place], [place] [id number] [email or web address] Breast screening Social History Tobacco Use Types [...] documented as of this encounter Care Teams Ict Business Analyst Relationship Specialty Start Date End Date Meghna Parson MD [email or web address] PCP - General Internal Medicine 08/19/17 11/29/19 Madalyn Rogers MD [address] [place] [address] PCP - General 11/30/19 12/30/20 Meghna Parson MD [email or web address] PCP - General Internal Medicine 12/31/20 01/04/22 Marian Alicia MD [address] [place] [address] 7 [place] [address] [email or web address] PCP - General Family Medicine 01/05/22 Demond Roger MD [address] [place] [address] [email or web address] Historical LMR Provider 02/24/15 10/21/21 Tianna Coello MD [address] [place] [address] [email or web address] Historical LMR Provider 02/24/15 10/21/21 Yasmeen Ward MD [email or web address] Historical LMR Provider 02/24/1510/21 Macho Vincent DO [address] [place] [address] [email or web address] Primary Oncologist Hematology and Oncology 09/13/21 Camila Nayak FNP [address] [place] [address] [email or web address] Nurse Practitioner Medical Oncology 11/03/21 Mile Reynolds CNP [address] [place] [address] [email or web address] Nurse Practitioner Medical Oncology 11/03/21 documented as of this encounter Additional Source Comments The information contained in this document represents components of the legal health record. It is not the complete legal health record.[facility]
--- OUTSIDE RECORDS SUMMARY | 2025-06-25 09:11 | XMS_ITS | Encounter Summary ---
Author Organization [facility] Address [address] [employer] [address] Phone Care Team Providers Care Video And Sound Recorder Name Role Phone Meghna Parson MD Primary Care Provi vipin Macho Vincent W DO Unavailable [phone] Camila Nayak SALES AND MARKETING ASSISTANT Unavailable [phone] CANE FLUME WATCHMAN Unavailable Marian Alicia MD Primary Care Provider [phone] Encounter Details Date Type Department Care Team (Late st Contact Info) Description 11/07/2021 Ancillary Orders [facility],Outside Imaging [address] [place], [place] [phone] System, Provider [place] In, [place] [address] Social History Tobacco Use Types Packs/Day Years [...] documented as of this encounter Care Teams Video And Sound Recorder Relationship Specialty Start Date End Date Meghna Parson MD [email or web address] PCP - General Internal Medicine 12/31/20 01/04/22 Marian Alicia MD [address] [place] [address], [address] [place] [address] [email or web address] PCP - General Family Medicine 01/05/22 Macho Vincent DO [address] [place] [address] [email or web address] Primary Oncologist Hematology and Oncology 09/13/21 Camila Nayak FNP [address] [place] [address] [email or web address] Nurse Practitioner Medical Oncology 11/03/21 Mile Reynolds CNP [address] [place] [address] Nurse Practitioner Medical Oncology 11/03/21 documented as of this encounter Additional Source Comments The information contained in this document represents components of the legal health record. It is not the complete legal health record.[facility]
--- OUTSIDE RECORDS SUMMARY | 2025-06-25 09:11 | XMS_ITS | Encounter Summary ---
Author Organization [facility] Address [address] [employer] [address] [address] Phone Care Team Providers Care School Supervisor Name Role Phone Meghna Parson MD Primary Care Provi vipin Macho Vincent W DO Unavailable [phone] Camila Nayak ULTRASOUND TECHNOL Unavailable [phone] MACHINE HOOP MAKER HELPER Unavailable Marian Alicia MD Primary Care Provider [phone] Encounter Details Date Type Department Care Team (Late st Contact Info) Description 11/07/2021 Ancillary Orders [facility],Outside Imaging [address] [place], [place] [phone] System, Provider [place] In, [place] [address] Social History Tobacco Use Types Packs/Day Years [...] documented as of this encounter Care Teams School Supervisor Relationship Specialty Start Date End Date Meghna Parson MD [email or web address] PCP - General Internal Medicine 12/31/20 01/04/22 Marian Alicia MD [address] [place] [address], [address] [place] [address] [email or web address] PCP - General Family Medicine 01/05/22 Macho Vincent DO [address] [place] [address] [email or web address] Primary Oncologist Hematology and Oncology 09/13/21 Camila Nayak FNP [address] [place] [address] [email or web address] Nurse Practitioner Medical Oncology 11/03/21 Mile Reynolds CNP [address] [place] [address] Nurse Practitioner Medical Oncology 11/03/21 documented as of this encounter Additional Source Comments The information contained in this document represents components of the legal health record. It is not the complete legal health record.[facility]
--- OUTSIDE RECORDS SUMMARY | 2025-06-25 09:11 | XMS_ITS | Encounter Summary ---
Author Organization [facility] Address [address] [employer] [address] [address] Phone Care Team Providers Care Upper Cutter Machine Name Role Phone Meghna Parson MD Primary Care Provi vipin Macho Vincent W DO Unavailable [phone] Camila Nayak INTERIOR DESIGNER Unavailable [phone] BUMBOATER Unavailable Marian Alicia MD Primary Care Provider [phone] Encounter Details Date Type Department Care Team (Late st Contact Info) Description 11/07/2021 Ancillary Orders [facility],Outside Imaging 30 [place], [place] [phone] System, Provider [place] In, [place] [address] Social History Tobacco Use Types Packs/Day Years [...] documented as of this encounter Care Teams Upper Cutter Machine Relationship Specialty Start Date End Date Meghna Parson MD [email or web address] PCP - General Internal Medicine 12/31/20 01/04/22 Marian Alicia MD [address] [place] [address], [address] [place] [address] [email or web address] PCP - General Family Medicine 01/05/22 Macho Vincent DO [address] [place] [address] [email or web address] Primary Oncologist Hematology and Oncology 09/13/21 Camila Nayak FNP [address] [place] [address] [email or web address] Nurse Practitioner Medical Oncology 11/03/21 Mile Reynolds CNP [address] [place] [address] Nurse Practitioner Medical Oncology 11/03/21 documented as of this encounter Additional Source Comments The information contained in this document represents components of the legal health record. It is not the complete legal health record.[facility]
--- OUTSIDE RECORDS SUMMARY | 2025-06-25 09:11 | XMS_ITS | Encounter Summary ---
Author Organization [facility], Address [address] [place] [address] Phone Care Team Providers Care Chemist Helper Name Role Phone Aretha Bain [employer] Primary Care Provider [phone] Encounter Details Date Type Department Care Team (Late st Contact Info) Description 08/12/2023 Documentation Only [facility] - [place] [address] [place] [phone] Marian Alicia MD [address] [place] [address] 7 [place] [address] Social History Tobacco Use Types Packs/Day Years [...] Visit [facility], [address] [place] [phone] Jamison Avila MD [address] [place] [phone] documented as of this encounter Visit Diagnoses Not on filedocumented in this encounter Care Teams Chemist Helper Relationship Specialty Start Date End Date Aretha Bain NP [address] [facility] [address] [place] [address] PCP - General Nurse Practitioner 04/12/25 documented as of this encounter
--- OUTSIDE RECORDS SUMMARY | 2025-06-25 09:11 | XMS_ITS | Encounter Summary ---
Author Organization [facility] Address [address] [facility] [address] [place] [address] Phone Care Team Providers Care Road Machinery Inspector Name Role Phone Demond Roger MD Unavailable [phone] FeltTianna gn MD Unavailable [phone] Yasmeen Ward MD Unavailable [email or web address] Meghna Parson MD Primary Care Provi vipin Madalyn Rogers MD Primary Care Provide r Meghna Parson MD Primary Care Provi vipin Macho Vincent DO Unavailable [phone] Camila Nayak TRIM OPERATOR Unavailable Mile Reynolds TELEPHONE DIAPHRAGM ASSEMBLER Unavailable Marian Alicia MD Primary Care Provider [phone] Encounter Details Date Type Department Care Team (Latest Contact Info) Description 03/04/2018 Transcribe Orders [facility] Laboratory 30 [place] [address] SabasLondon MD [address] [facility] [address] [place], [place] [phone] [email or web address] Dyspnea, unspecified type (Primary Dx) Social [...] AM EDT) D-DIMER <215 <500 ng/mL [facility] Comment:In patients with low to moderate pre-test probability scores for VTE (PE or DVT), a D-Dimer cut-off less than 500 ng/mL ([facility]) has a negative predictive value (NPV) of 97 to 100%. Blood 03/04/2018 11:3 1 AM EDT 03/04/2018 11:33 AM EDT London Obregon MD LAB BLOOD ORDERABLES Final Resu lt Performing Organization Address City/State/[facility] Co de Phone Number [address] [place] [address] [address] documented in this encounter Visit Diagnoses Diagnosis Dyspnea, unspecified type- Primary documented in this encounter Additional Health Concerns Infection Onset Date Last Indicated Resolved Time CoV-Exposed Comment:Recent close contact documented in the COVID-19 PCR/PRO order 09/25/2021 10/03/2021 10/10/2021 1:[address] CoV-Presumed 10/09/2022 10/09/2022 10/30/2022 1:21 AM EST CoV-Risk 03/01/2023 03/01/2023 03/12/2023 1:22 AM EDT documented as of this encounter Care Teams Road Machinery Inspector Relationship Specialty Start Date End Date Meghna Parson MD [email or web address] PCP - General Internal Medicine 08/19/17 11/29/19 Madalyn Rogers MD [address] [place] [address] PCP - General 11/30/19 12/30/20 Meghna Parson MD [email or web address] PCP - General Internal Medicine 12/31/20 01/04/22 Marian Alicia MD [address] [place] [address] [email or web address] PCP - General Family Medicine 01/05/22 Demond Roger MD [address] [place] [address] [email or web address] Historical LMR Provider 02/24/15 10/21/21 Tianna Coello MD [address] [place] [address] [email or web address] Historical LMR Provider 02/24/15 10/21/21 Yasmeen Ward MD [email or web address] Historical LMR Provider 02/24/1510/21 Macho Vincent DO [address] [place] [address] [email or web address] Primary Oncologist Hematology and Oncology 09/13/21 Camila Nayak FNP [address] [place] [address] [email or web address] Nurse Practitioner Medical Oncology 11/03/21 Mile Reynolds CNP [address] [place] [address] [email or web address] Nurse Practitioner Medical Oncology 11/03/21 documented as of this encounter Additional Source Comments The information contained in this document represents components of the legal health record. It is not the complete legal health record.[facility]
--- OUTSIDE RECORDS SUMMARY | 2025-06-25 09:11 | XMS_ITS | Encounter Summary ---
Author Organization [facility] Address [address] [facility] [address] [place] [address] Phone Care Team Providers Care Strainer Tender Name Role Phone Demond Roger MD Unavailable [phone] FeltmateTianna MD Unavailable [phone] Yasmeen Ward MD Unavailable [email or web address] Meghna Parson MD Primary Care Provi vipin CarltonMacho gary W DO Unavailable Camila Nayak PASSENGER BRAKEMAN Unavailable Pack, Mile SECURITY INCIDENT RESPONSE ENGINEER Unavailable Marian Alicia MD Primary Care Provider [phone] Encounter Details Date Type Department Care Team (Late st Contact Info) Description 06/13/2021 Transcribe Orders Virtual Department 30 [place] [address] Meghna Parson MD [address] [place], [place] [phone] [email or web address] Post-void dribbling (Primary Dx) Social History Tobacco [...] 2:37 PM EDT Normal bladder ultrasound POS [id number] Narrative 06/27/2021 2:37 PM EDT No comparison [...] (11% residual) IMPRESSION: Normal bladder ultrasound POS [id number] Meghna Parson MD IMG US RENAL Fin [...] documented as of this encounter Care Teams Strainer Tender Relationship Specialty Start Date End Date Meghna Parson MD [email or web address] PCP - General Internal Medicine 12/31/20 01/04/22 Marian Alicia MD [address] [place] [address], [address] [place] [address] [email or web address] PCP - General Family Medicine 01/05/22 Demond Roger MD [address] [place] [address] [email or web address] Historical LMR Provider 02/24/15 10/21/21 Tianna Coello MD [address] [place] [address] [email or web address] Historical LMR Provider 02/24/15 10/21/21 Yasmeen Ward MD [email or web address] Historical LMR Provider 02/24/1510/21 Macho Vinecnt DO [address] [place] [address] [email or web address]. [facility] Primary Oncologist Hematology and Oncology 09/13/21 Camila Nayak FNP [address] [place] [address] [email or web address] Nurse Practitioner Medical Oncology 11/03/21 Mile Reynolds CNP [address] [place] [address] Nurse Practitioner Medical Oncology 11/03/21 documented as of this encounter Additional Source Comments The information contained in this document represents components of the legal health record. It is not the complete legal health record.[facility]
--- OUTSIDE RECORDS SUMMARY | 2025-06-25 09:11 | XMS_ITS | Encounter Summary ---
Author Organization [facility] Address [address] [facility] [address] [place] [address] Phone Care Team Providers Care Glost Tile Shader Name Role Phone Demond Roger MD Unavailable [phone] FeltTianna ng MD Unavailable [phone] Yasmeen Ward MD Unavailable [email or web address] Meghna Parson MD Primary Care Provi vipin Madalyn Rogers MD Primary Care Provide r Meghna Parson MD Primary Care Provi vipin Macho Vincent DO Unavailable [phone] Camila Nayak ENDOSCOPE TECHNICIAN Unavailable Mile Reynolds CONSERVATION SCIENTIST Unavailable Marian Alicia MD Primary Care Provider [phone] Encounter Details Date Type Department Care Team (Late st Contact Info) Description 08/23/2017 Transcribe Orders [facility] Laboratory [address] [place] [address] Meghna Parson MD [address] [place], [place] [phone] [email or web address] Muscle pain (Primary Dx); Leg cramps; Polyuria [...] EST) PHOSPHORUS 2.3(L) 2.7 - 4.5 mg/dL [facility] Blood 08/23/2017 12:3 2 PM EST 08/23/2017 12:36 PM EST us Meghna Parson MD LAB BLOOD ORDERABLE S Final Result Performing Organization Address [facility]/ZIP Co de Phone Number [address] [address] * Magnesium (08/23/2017 12:32 PM EST) MAGNESIUM 1.8 1.6 - 2.6 mg/dL [facility] Blood 08/23/2017 12:3 2 PM EST 08/23/2017 12:36 PM EST us Meghna Parson MD LAB BLOOD ORDERABLE S Final Result Performing Organization Address [facility] Co de Phone Number [address] [address] * Urine culture (08/23/2017 12:32 PM EST) Specimen Source/ Description URINE CLEAN CATCH URINE URINE [facility] Special Requests None [facility] GRAM STAIN NO ORGANISMS SEEN [facility] Culture/Test 10,000 to 100,000 colony forming units per ml MIXED HAYLEE (3 OR MORE COLONY TYPES) Culture indicates contamination . Please resubmit if necessary. [facility] Report Status 08/25/2017 FINAL [facility] Urine (Urine) 08/23/2017 12: 32 PM EST 08/23/2017 12:37 PM EST Meghna Parson MD MICROBIOLOGY - GENE RAL ORDERABLES Final Result Performing Organization Address [facility] Co de Phone Number [address] [address] * (ABNORMAL) Urinalysis (08/23/2017 12:32 PM EST) COLOR STRAW(A) Yellow [facility] CLARITY Clear [facility] GLUCOSE Negative Negative [facility] BILI Negative Negative [facility] KETONES Negative Negative [facility] SPECIFIC GRAVITY <1.005 1.005 - 1.030 [facility] BLOOD Negative Negative [facility] PH 5.5 5.0 - 8.0 [facility] Protein-UA Negative Negative [facility] NITRITE Negative Negative [facility] Leukocyte esterase, ur Negative Negative [facility] Urine (Urine) 08/23/2017 12: 32 PM EST 08/23/2017 12:36 PM EST us Meghna Parson MD URINE ORDERABLES Fi nal Result Performing Organization Address City/[facility]/ZIP Co de Phone Number [address] [address] * Hemoglobin A1c (08/23/2017 12:32 PM EST) HEMOGLOBIN A1C 4.9 4.3 - 5.8 % [facility] Blood 08/23/2017 12:3 2 PM EST 08/23/2017 12:36 PM EST us Meghna Parson MD LAB BLOOD ORDERABLE S Final Result Performing Organization Address [facility]/ZIP Co de Phone Number [address] [address] * (ABNORMAL) CPK (creatine kinase) (08/23/2017 12:32 PM EST) CREATINE KINASE 483(H) 21 - 215 U/L [facility] Blood 08/23/2017 12:3 2 PM EST 08/23/2017 12:36 PM EST us Meghna Parson MD LAB BLOOD ORDERABLE S Final Result Performing Organization Address [facility]/ZIP Co de Phone Number [address] [address] * (ABNORMAL) CBC and differential (08/23/2017 12:32 PM EST) WBC 9.50 3.40 - 11.20 K/uL [facility] RBC 4.88(H) 3.80 - 4.80 M/uL [facility] HGB 14.6 12.0 - 15.0 g/dL [facility] HCT 43.7 36.0 - 46.0 % [facility] PLT 281 130 - 400 K/uL [facility] MCV 89.5 79.0 - 98.0 fL [facility] MCH 29.9 27.0 - 34.8 pg [facility] MCHC 33.4 31.5 - 36.0 g/dL [facility] RDW 12.8 10.8 - 14.6 % [facility] MPV 9.9 9.4 - 12.4 fl [facility] NRBC 0.00 /100 WBCs [facility] ABSOLUTE NRBC 0.00 K/uL [facility] DIFF METHOD Auto [facility] NEUTS 64.0 45.30 - 77.70 % [facility] LYMPHS 25.2 12.30 - 39.70 % [facility] MONOS 8.1 4.10 - 12.80 % [facility] EOS 1.6 0 - 7.2 % [facility] BASOS 0.4 0 - 2.80 % [facility] Granulocytes, immature (%) 0.7 0.0 - 0.9 % [facility] ABSOLUTE NEUTS 6.08 1.40 - 7.70 K/uL [facility] ABSOLUTE LYMPHS 2.39 0.60 - 3.20 K/uL [facility] ABSOLUTE MONOS 0.77(H) 0.11 - 0.59 K/uL [facility] ABSOLUTE EOS 0.15 0.01 - 0.50 K/uL [facility] ABSOLUTE BASOS 0.04 0.00 - 0.08 K/uL [facility] Granulocytes, immature 0.07(H) 0.00 - 0.05 K/uL [facility] Blood 08/23/2017 12:3 2 PM EST 08/23/2017 12:36 PM EST us Meghna Parson MD LAB BLOOD ORDERABLE S Final Result [address] [address] * TSH with reflex (08/23/2017 12:32 PM EST) TSH 1.44 0.27 - 4.20 uIU/mL [facility] Blood 08/23/2017 12:3 2 PM EST 08/23/2017 12:36 PM EST us Meghna Parson MD LAB BLOOD ORDERABLE S Edited Result - Final [facility] [address] [place] [address] * (ABNORMAL) Comprehensive metabolic panel (08/23/2017 12:32 PM EST) SODIUM 142 133 - 146 mmol/L [facility] POTASSIUM 3.7 3.3 - 5.1 mmol/L [facility] CHLORIDE 103 96 - 108 mmol/L [facility] CO2 28 21 - 35 mmol/L [facility] BUN 20(H) 6 - 19 mg/dL [facility] CREATININE 0.80 0.5 - 1.5 mg/dL [facility] GLUCOSE 67(L) 70 - 99 mg/dL [facility] ALBUMIN 4.3 3.9 - 4.8 g/dL [facility] TOTAL PROTEIN 6.5 6.5 - 8.0 g/dL [facility] CALCIUM 9.6 8.4 - 10.3 mg/dL [facility] ALKALINE PHOSPHATASE 73 39 - 117 U/L [facility] TOTAL BILIRUBIN 0.2 0 - 1.2 mg/dL [facility] AST 25 0 - 37 U/L [facility] ALT 13 0 - 40 U/L [facility] GLOBULIN 2.2 1 - 4.8 g/dL [facility] EGFR >60 >60 mL/min/1.7 3m2 [facility] Comment:Abnormal if <60. If patient is -Japanese, multiply the result by 1.21. ANION GAP 15 10 - 20 mmol/L [facility] Blood 08/23/2017 12:3 2 PM EST 08/23/2017 12:36 PM EST us Meghna Parson MD LAB BLOOD ORDERABLE S Final Result [facility] [address] [place] [address] documented in this encounter Visit Diagnoses Diagnosis [...] documented as of this encounter Care Teams Glost Tile Shader Relationship Specialty Start Date End Date Meghna Parson MD [email or web address] PCP - General Internal Medicine 08/19/17 11/29/19 aMdalyn Rogers MD [address] [place] [address] PCP - General 11/30/19 12/30/20 Meghna Parson MD [email or web address] PCP - General Internal Medicine 12/31/20 01/04/22 Marian Alicia MD [address] [place] [address] 7 [place] [address] PCP - General Family Medicine 01/05/22 Demond Roger MD [address] [place] [address] [email or web address] Historical LMR Provider 02/24/15 10/21/21 Tianna Coello MD [address] [place] [address] [email or web address] Historical LMR Provider 02/24/15 10/21/21 Yasmeen Ward MD [email or web address] Historical LMR Provider 02/24/1510/21 Macho Vincent DO [address] [place] [address] [email or web address] Primary Oncologist Hematology and Oncology 09/13/21 Camila Nayak FNP [address] [place] [address] [email or web address] Nurse Practitioner Medical Oncology 11/03/21 Mile Reynolds CNP [address] [place] [address] [email or web address] Nurse Practitioner Medical Oncology 11/03/21 documented as of this encounter Additional Source Comments The information contained in this document represents components of the legal health record. It is not the complete legal health record.[facility]
--- OUTSIDE RECORDS SUMMARY | 2025-06-25 09:11 | XMS_ITS | Encounter Summary ---
Author Organization [facility] Address [address] [facility] [address] [place] [address] Phone Care Team Providers Care Software Recruiter Name Role Phone Demond Roger MD Unavailable [phone] FeltTianna ng MD Unavailable [phone] Yasmeen Ward MD Unavailable [email or web address] Meghna Parson MD Primary Care Provi vipin Madalyn Rogers MD Primary Care Provide r Meghna Parson MD Primary Care Provi vipin Macho Vincent DO Unavailable Camila Nayak CHEMICAL MACHINE TENDER Unavailable Mile Reynolds ELIGIBILITY AND OCCUPANCY INTERVIEWER Unavailable Marian Alicia MD Primary Care Provider [phone] Encounter Details Date Type Department Care Team (Late st Contact Info) Description 03/03/2018 Ancillary Orders [facility], X-Ray - [address] [address] Sabas, London Verde MD [address] [facility] [address] [place], [place] [phone] [email or web address] Dyspnea, unspecified type Social History Tobacco Use [...] documented as of this encounter Care Teams Software Recruiter Relationship Specialty Start Date End Date Meghna Parson MD [email or web address] PCP - General Internal Medicine 08/19/17 11/29/19 Madalyn Rogers MD [address] [place] [address] PCP - General 11/30/19 12/30/20 Meghna Parson MD [email or web address] PCP - General Internal Medicine 12/31/20 01/04/22 Marian Alicia MD [address] [place] [address] 7 [place] [address] [email or web address] PCP - General Family Medicine 01/05/22 Demond Roger MD [address] [place] [address] [email or web address] Historical LMR Provider 02/24/15 10/21/21 Tianna Coello MD [address] [place] [address] [email or web address] Historical LMR Provider 02/24/15 10/21/21 Yasmeen Ward MD [email or web address] Historical LMR Provider 02/24/1510/21 Macho Vincent DO [address] [place] [address] [email or web address] Primary Oncologist Hematology and Oncology 09/13/21 Camila Nayak FNP [address] [place] [address] [email or web address] Nurse Practitioner Medical Oncology 11/03/21 Mile Reynolds CNP [address] [place] [address] [email or web address] Nurse Practitioner Medical Oncology 11/03/21 documented as of this encounter Additional Source Comments The information contained in this document represents components of the legal health record. It is not the complete legal health record.[facility]
--- OUTSIDE RECORDS SUMMARY | 2025-06-25 09:11 | XMS_ITS | Encounter Summary ---
Author Organization [facility], Address [address] [place] [address] Phone Care Team Providers Care Agile Developer Name Role Phone Aretha Bain ACCESS LEAD Primary Care Provider [phone] Encounter Details Date Type Department Care Team (Late st Contact Info) Description 08/12/2023 Documentation Only [facility] - [place] [address] [place] [phone] Marian Alicia MD [address] [place] [address] 7 [place] [address] Social History Tobacco Use Types Packs/Day Years [...] Visit [facility], [address] [place] [phone] Jamison Avila MD [address] [address] [place] [phone] documented as of this encounter Visit Diagnoses Not on filedocumented in this encounter Care Teams Agile Developer Relationship Specialty Start Date End Date Aretha Bain NP [address] [facility] 1 [place] [address] PCP - General Nurse Practitioner 04/12/25 documented as of this encounter
--- OUTSIDE RECORDS SUMMARY | 2025-06-25 09:11 | XMS_ITS | Encounter Summary ---
Author Organization [facility] Address [address] [facility] [address] [place] [address] Phone Care Team Providers Care Acoustical Material Worker Name Role Phone Demond Roger MD Unavailable [phone] FeltTianna ng MD Unavailable [phone] Yasmeen Ward MD Unavailable [email or web address] Meghna Parson MD Primary Care Provi vipin Madalyn Rogers MD Primary Care Provide r Meghna Parson MD Primary Care Provi vipin Macho Vincent DO Unavailable [phone] Camila Nayak CRUTCHING CONTRACTOR Unavailable Mile Reynolds TUBE BUILDER Unavailable Marian Alicia MD Primary Care Provider [phone] Encounter Details Date Type Department Care Team (Late st Contact Info) Description 09/18/2019 Ancillary Orders [facility], X-Ray - [address] [address] Georgie Olsen MD [address] [place] [phone] [email or web address] Pneumonia due to infectious [...] documented as of this encounter Care Teams Acoustical Material Worker Relationship Specialty Start Date End Date Meghna Parson MD [email or web address] PCP - General Internal Medicine 08/19/17 11/29/19 Madalyn Rogers MD [address] [place] [address] PCP - General 11/30/19 12/30/20 Meghna Parson MD [email or web address] PCP - General Internal Medicine 12/31/20 01/04/22 Marian Alicia MD [address] [place] [address] 7 [place] [address] [email or web address] PCP - General Family Medicine 01/05/22 Demond Roger MD [address] [place] [address] [email or web address] Historical LMR Provider 02/24/15 10/21/21 Tianna Coello MD [address] [place] [address] [email or web address] Historical LMR Provider 02/24/15 10/21/21 Yasmeen aWrd MD [email or web address] Historical LMR Provider 02/24/1510/21 Macho Vincent DO [address] [place] [address] [email or web address] Primary Oncologist Hematology and Oncology 09/13/21 Camila Nayak FNP [address] [place] [address] [email or web address] Nurse Practitioner Medical Oncology 11/03/21 Mile Reynolds CNP [address] [place] [address] [email or web address] Nurse Practitioner Medical Oncology 11/03/21 documented as of this encounter Additional Source Comments The information contained in this document represents components of the legal health record. It is not the complete legal health record.[facility]
--- OUTSIDE RECORDS SUMMARY | 2025-06-25 09:11 | XMS_ITS | Encounter Summary ---
Author Organization [facility] Address [address] [facility] [address] [place] [address] Phone Care Team Providers Care Company Pilot Name Role Phone Demond Roger MD Unavailable [phone] FeltTianna ng MD Unavailable [phone] Yasmeen Ward MD Unavailable [email or web address] Meghna Parson MD Primary Care Provi vipin Madalyn Rogers MD Primary Care Provide r Meghna Parson MD Primary Care Provi vipin Macho Vincent DO Unavailable Camila Nayak SCAGLIOLA MECHANIC Unavailable Mile Reynolds PACKAGING MANAGER Unavailable Marian Alicia MD Primary Care Provider [phone] Encounter Details Date Type Department Care Team (Late st Contact Info) Description 11/12/2019 Transcribe Orders Virtual Department 30 [place] [address] Meghna Parson MD [address] [place], [place] [phone] [email or web address] Dysuria (Primary Dx) Social History Tobacco Use [...] Special Requests None 11/12/2019 6:01 PM EST [facility] GRAM STAIN NO ORGANISMS SEEN 11/13/2019 9:06 AM EST [facility] Urine Culture 10,000 to 100,000 colony forming units per mL MIXED HAYLEE (3 OR MORE COLONY TYPES) Culture indicates contamination . Please resubmit if necessary.(A) 11/14/2019 10:46 AM EST [facility] Urine (Urine) 11/12/2019 4:3 0 PM EST 11/12/2019 6:00 PM EST us Meghna Parson MD MICROBIOLOGY - GENE [facility] ORDERABLES Final Result [address] [address] * (ABNORMAL) URINALYSIS WITH SEDIMENT (11/12/2019 4:30 PM EST) WBC 0-4(A) NONE SEEN /hpf [facility] RBC NONE SEEN NONE SEEN /hpf [facility] URINE EPITHELIAL 0-4(A) NONE SEEN [facility] MUCUS Trace(A) NONE SEEN /hpf [facility] BACTERIA NONE SEEN NONE SEEN /hpf [facility] COLOR Yellow Yellow [facility] CLARITY Clear [facility] GLUCOSE Negative Negative [facility] BILI Negative Negative [facility] KETONES Negative Negative [facility] SPECIFIC GRAVITY 1.015 1.005 - 1.030 [facility] BLOOD Negative Negative [facility] PH 5.5 5.0 - 8.0 [facility] Protein-UA Negative Negative [facility] NITRITE Negative Negative [facility] Leukocyte esterase, ur Negative Negative [facility] Urine (Urine) 11/12/2019 4:3 0 PM EST 11/12/2019 6:09 PM EST us Meghna Parson MD URINE ORDERABLES Fi nal Result [facility] [address] [place] [address] documented in this encounter Visit Diagnoses Diagnosis Dysuria- Primary documented in this encounter Additional Health Concerns Infection Onset Date Last Indicated Resolved Time CoV-Exposed Comment:Recent close contact documented in the COVID-19 PCR/PRO order 09/25/2021 10/03/2021 10/10/2021 1:[address] CoV-Presumed 10/09/2022 10/09/2022 10/30/2022 1:21 AM EST CoV-Risk 03/01/2023 03/01/2023 03/12/2023 1:22 AM EDT documented as of this encounter Care Teams Company Pilot Relationship Specialty Start Date End Date Meghna Parson MD [email or web address] PCP - General Internal Medicine 08/19/17 11/29/19 Madalyn Rogers MD [address] [place] [address] PCP - General 11/30/19 12/30/20 Meghna Parson MD [email or web address] PCP - General Internal Medicine 12/31/20 01/04/22 Marian Alicia MD [address] [place] [address], [address] [place] [address] [email or web address] PCP - General Family Medicine 01/05/22 Demond Roger MD [address] [place] [address] [email or web address] Historical LMR Provider 02/24/15 10/21/21 Tianna Coello MD [address] [place] [address] [email or web address] Historical LMR Provider 02/24/15 10/21/21 Yasmeen Ward MD [email or web address] Historical LMR Provider 02/24/1510/21 Macho Vincent DO [address] [place] [address] [email or web address] Primary Oncologist Hematology and Oncology 09/13/21 Camila Nayak FNP [address] [place] [address] [email or web address] Nurse Practitioner Medical Oncology 11/03/21 Mile Reynolds CNP [address] [place] [address] [email or web address] Nurse Practitioner Medical Oncology 11/03/21 documented as of this encounter Additional Source Comments The information contained in this document represents components of the legal health record. It is not the complete legal health record.[facility]
--- OUTSIDE RECORDS SUMMARY | 2025-06-25 09:12 | XMS_ITS | Encounter Summary ---
Author Organization [facility] Address [address] [employer] [facility] [address] [place] [address] Phone Care Team Providers Care Preforming Machine Operator Name Role Phone Demond Roger MD Unavailable [phone] FeltmateTianna MD Unavailable [phone] Yasmeen Ward MD Unavailable [email or web address] Meghna Parson MD Primary Care Provi vipin CarltonMacho gary W DO Unavailable Camila Nayak DYE LAB TECHNICIAN Unavailable Gail, Mile PRESSER [employer] Unavailable Marian Alicia MD Primary Care Provider [phone] Encounter Details Date Type Department Care Team (Late st Contact Info) Description 05/22/2021 Ancillary Orders [facility], X-Ray - [address] [address] Sabas, London Verde MD [address] [facility] [address] [place], [place] [id number] [email or web address] Erythema Social History Tobacco Use Types [...] documented as of this encounter Care Teams Preforming Machine Operator Relationship Specialty Start Date End Date Meghna Parson MD [email or web address] PCP - General Internal Medicine 12/31/20 01/04/22 Marian Alicia MD [address] [place] [address] 7 [place] [address] [email or web address] [email or web address] PCP - General Family Medicine 01/05/22 Demond Roger MD [address] [place] [address] [email or web address] Historical LMR Provider 02/24/15 10/21/21 Tianna Coello MD [address] [place] [address] [email or web address] Historical LMR Provider 02/24/15 10/21/21 Yasmeen Ward MD [email or web address] Historical LMR Provider 02/24/1510/21 Macho Vincent DO [address] [place] [address] [email or web address] Primary Oncologist Hematology and Oncology 09/13/21 Camila Nayak FNP [address] [place] [address] [email or web address] Nurse Practitioner Medical Oncology 11/03/21 Mile Reynolds CNP [address] [place], [place] [address] [email or web address] Nurse Practitioner Medical Oncology 11/03/21 documented as of this encounter Additional Source Comments The information contained in this document represents components of the legal health record. It is not the complete legal health record.[facility]
--- OUTSIDE RECORDS SUMMARY | 2025-06-25 09:12 | XMS_ITS | Encounter Summary ---
Author Organization [facility] Address [address] [facility] [address] [place] [address] Phone Care Team Providers Care Sketcher Name Role Phone Demond Roger MD Unavailable [phone] FeltTianna ng MD Unavailable [phone] Yasmeen Ward MD Unavailable [email or web address] Meghna Parson MD Primary Care Provi vipin Madalyn Rogers MD Primary Care Provide r Meghna Parson MD Primary Care Provi vipin Macho Vincent DO Unavailable Camila Nayak JUVENILE COUNSELOR Unavailable Mile Reynolds CHEMICAL INSPECTOR Unavailable Marian Alicia MD Primary Care Provider [phone] Encounter Details Date Type Department Care Team (Late st Contact Info) Description 10/24/2017 Transcribe Orders [facility] [address] [place] [address] Bairon Aparicio MD, [place] [address] [id number] [email or web address] Social History Tobacco Use Types Packs/Day Years [...] documented as of this encounter Care Teams Sketcher Relationship Specialty Start Date End Date Meghna Parson MD [email or web address] PCP - General Internal Medicine 08/19/17 11/29/19 Madalyn Rogers MD [address] [place] [address] PCP - General 11/30/19 12/30/20 Meghna Parson MD [email or web address] PCP - General Internal Medicine 12/31/20 01/04/22 Marian Alicia MD [address] [place] [address], [address] [place] [address] PCP - General Family Medicine 01/05/22 Demond Roger MD [address] [place] [address] [email or web address] Historical LMR Provider 02/24/15 10/21/21 Tianna Coello MD [address] [place] [address] [email or web address] Historical LMR Provider 02/24/15 10/21/21 Yasmeen Ward MD [email or web address] Historical LMR Provider 02/24/1510/21 Macho Vincent DO [address] [place] [address] [email or web address] Primary Oncologist Hematology and Oncology 09/13/21 Camila Nayak FNP [address] [place] [address] [email or web address] Nurse Practitioner Medical Oncology 11/03/21 Mile Reynolds CNP [address] [place] [address] [email or web address] Nurse Practitioner Medical Oncology 11/03/21 documented as of this encounter Additional Source Comments The information contained in this document represents components of the legal health record. It is not the complete legal health record.[facility]
--- OUTSIDE RECORDS SUMMARY | 2025-06-25 09:12 | XMS_ITS | Clinical Summary ---
Author Organization [facility] Address [address] [place] [address] Phone Care Team Providers Care Upper Tier Name Role Phone Aretha Bain NP Primary Care Provider [phone] Family History Medical History Relation Name Comments [...] of Phone Billing Address Personal/Family Self 1965 [phone] (Work) [address] [place] [address] MEDICA[place] Care Teams Upper Tier Relationship Specialty Start Date End Date Aretha Bain NP [address] [place] [phone] PCP - General Nurse Practitioner 03/02/25
--- OUTSIDE RECORDS SUMMARY | 2025-06-25 09:12 | XMS_ITS | Encounter Summary ---
Author Organization [facility] Address [address] [place] [address] Phone Care Team Providers Care Propeller Mechanic Name Role Phone Macho Vincent DO Unavailable [phone] Camila Nayak BEHAVIOR SUPPORT SPECIALIST Unavailable PackTristanen SHIFTMAN Unavailable Marian Alicia MD Primary Care Provider [phone] Encounter Details Date Type Department Care Team (Late st Contact Info) Description 03/01/2023 Procedure Pass [facility], Ct Scan - [address] [address] Social History Tobacco Use Types Packs/Day Years [...] high school, GED, job training, learning the Spanish language, technical skills, or developing parenting skills)? [...] 3:51 PM EDT Yanick Gonzales, ZOEY * Rankin Suicide Severity Rating Scale (Screener/Recent Self-Report) Question [...] as of this encounter Care Teams Propeller Mechanic Relationship Specialty Start Date End Date Marian Alicia MD [address] [place] [address], [address] [place] [address] [email or web address] PCP - General Family Medicine 01/05/22 Macho Vincent DO [address] [place] [address] [email or web address] Primary Oncologist Hematology and Oncology 09/13/21 Camila Nayak FNP [address] [place] [address] [email or web address] Nurse Practitioner Medical Oncology 11/03/21 Mile Reynolds CNP [address] [place] [address] [email or web address] Nurse Practitioner Medical Oncology 11/03/21 documented as of this encounter Additional Source Comments The information contained in this document represents components of the legal health record. It is not the complete legal health record.[facility]
--- OUTSIDE RECORDS SUMMARY | 2025-06-25 09:12 | XMS_ITS | Encounter Summary ---
Author Organization [facility] Address [address] [facility] [address] [place] [address] Phone Care Team Providers Care Drilling Engineering Manager Name Role Phone Macho Vincent DO Unavailable Camila Nayak PROJECT MGR Unavailable PackMile LOZENGE DOUGH MIXER Unavailable Marian Alicia MD Primary Care Provider [phone] Reason for Visit * Reason Onset Date Comments Appointment 06/03/2025 Encounter Details Date Type Department Care Team (Late st Contact Info) Description 06/03/2025 Telephone [facility] General Surgical Care [address] [place], [place] [phone] Unknown, Unknown, Appointment Social History Tobacco Use [...] with the weight loss dept. Central Support Dry End Operator (Please do not reply to this user; this inbox is not monitored.) Thank you. documented in this encounter Plan of Treatment Not on file documented as of this encounter Visit Diagnoses Not on filedocumented in this encounter Additional Health Concerns Assessment Noted Time PHQ-2 Depression Total Score: 1 01/24/20 23 4:10 PM EDT documented as of this encounter Care Teams Drilling Engineering Manager Relationship Specialty Start Date End Date Marian Alicia MD [address] [place] [address], [address] [place] [address] [email or web address] PCP - General Family Medicine 01/05/22 Macho Vincent DO [address] [place] [address] [email or web address] Primary Oncologist Hematology and Oncology 09/13/21 Camila Nayak FNP [address] [place] [address] Nurse Practitioner Medical Oncology 11/03/21 Mile Reynolds CNP [address] [place] [address] Nurse Practitioner Medical Oncology 11/03/21 documented as of this encounter Additional Source Comments The information contained in this document represents components of the legal health record. It is not the complete legal health record.[facility]
--- OUTSIDE RECORDS SUMMARY | 2025-06-25 09:12 | XMS_ITS | Encounter Summary ---
Author Organization [facility] Address [address] [employer] [address] [address] Phone Care Team Providers Care Technical Aid Name Role Phone Meghna Parson MD Primary Care Provi vipin Macho Vincent W DO Unavailable [phone] Camila Nayak COLLECTIONS OFFICER Unavailable [phone] Pack, Mile PIN MAKER Unavailable Marian Alicia MD Primary Care Provider [phone] Encounter Details Date Type Department Care Team (Late st Contact Info) Description 11/07/2021 Ancillary Orders [facility],Outside Imaging [address] [place], [place] [phone] System, Provider Not In, [place] [address] Social History Tobacco Use Types Packs/Day Years [...] documented as of this encounter Care Teams Technical Aid Relationship Specialty Start Date End Date Meghna Parson MD [email or web address] PCP - General Internal Medicine 12/31/20 01/04/22 Marian Alicia MD [address] [place] [address], [address] [place] [address] [email or web address] PCP - General Family Medicine 01/05/22 Macho Vincent DO [address] [place] [address] [email or web address] Primary Oncologist Hematology and Oncology 09/13/21 Camila Nayak FNP [address] [place] [address] [email or web address] Nurse Practitioner Medical Oncology 11/03/21 Mile Reynolds CNP [address] [place] [address] Nurse Practitioner Medical Oncology 11/03/21 documented as of this encounter Additional Source Comments The information contained in this document represents components of the legal health record. It is not the complete legal health record.[facility]
== END 2025-06-25 16:13 | disposition home or self-care (01) ==
LOC: HO.HBS 08:35
PROVIDERS: PCP Nurse Practitioner Family; Visit Provider Surgery
DX: E66.01 Morbid (severe) obesity due to excess calories (principal); Z68.43 Body mass index [BMI] 50.0-59.9, adult
CPT/HCPCS: 98014

== ENCOUNTER 2025-07-01 08:32 | Outpatient (REF) | payer OTHER, SELFPAY ==
[2025-07-01 09:28] LABS: MANUAL DIFF FLAG NO
[2025-07-01 09:56] LABS: Hematocrit 44.2 % (37.0-47.0); Hemoglobin 14.9 g/dl (12.0-16.0); Imm Gran Abs Auto 0.08 X10*3/uL (0.00-0.03); Imm Gran Pct Auto 0.9 % (0.0-0.4); Lymphocytes Absolute Auto 1.8 X10*3/uL (1.2-4.9); Mean Corpuscular HGB Conc 33.7 g/dl (31.0-35.0); Mean Corpuscular Hemoglobin 28.9 pg (27.0-33.0); Mean Corpuscular Volume 85.7 fL (80.0-98.0); NRBC Abs Auto 0.000 X10*3/uL (0.0-0.012); NRBC Pct Auto 0.0 /100WBC (0.0-0.2); Platelet Count 342 X10*3/uL (160-400); Red Blood Count 5.16 X10*6/uL (4.20-5.50); White Blood Count 8.5 X10*3/uL (4.8-10.8)
[2025-07-01 10:31] LABS: INTERNATIONAL NORM RATIO 2.2 (0.9-1.1); Prothrombin Time 25.4 SEC (10.9-12.4)
[2025-07-01 10:32] LABS: Partial Thromboplastin Time 49.0 SEC (26.7-34.1)
[2025-07-01 10:51] LABS: Alanine Aminotransferase 11 U/L (0-31); Albumin Level 4.6 g/dL (3.5-5.0); Alkaline Phosphatase 90 U/L (39-117); Anion Gap 10 (12-20); Aspartate Amino Transferase 20 U/L (5-31); Blood Urea Nitrogen 21 mg/dL (9-16); Calcium 9.8 mg/dL (8.4-10.2); Carbon Dioxide 27 mmol/L (22-29); Chloride 109 mmol/L (96-108); Cholesterol 227 mg/dL (<200); Estimated Glomerular Filt Rate 51; HDL Cholesterol 46 mg/dL (>40); Potassium 3.9 mmol/L (3.3-5.1); Sodium 142 mmol/L (135-145); Total Protein 6.9 g/dL (6.5-8.0); Triglycerides 125 mg/dL (<150)
== END 2025-07-01 08:33 | disposition home or self-care (01) ==
LOC: HO.LAB 08:32
PROVIDERS: PCP Nurse Practitioner Family; Visit Provider Surgery
DX: E66.01 Morbid (severe) obesity due to excess calories (principal); I10 Essential (primary) hypertension; Z68.43 Body mass index [BMI] 50.0-59.9, adult
CPT/HCPCS: 36415; 80053; 80061; 83036; 83525; 84443; 85025; 85610; 85730; 86140

== ENCOUNTER 2025-07-05 06:00 | Outpatient (REF) | payer OTHER, SELFPAY ==
--- OUTSIDE RECORDS SUMMARY | 2025-07-05 06:03 | XMS_ITS | Encounter Summary ---
Author Organization [facility] Address [address] [facility] [address] [place] [address] Phone Care Team Providers Care Ordnance Truck Installation Supervisor Name Role Phone Demond Roger MD Unavailable [phone] FeltTianna ng MD Unavailable [phone] Yasmeen Ward MD Unavailable [email or web address] Meghna Parson MD Primary Care Provi vipin Madalyn Rogers MD Primary Care Provide r Meghna Parson MD Primary Care Provi vipin Macho Vincent DO Unavailable Camila Nayak [employer] Unavailable Mile Reynolds USER SUPPORT ANALYST SUPERVISOR Unavailable Marian Alicia MD Primary Care Provider [phone] Encounter Details Date Type Department Care Team (Late st Contact Info) Description 05/29/2018 Ancillary Orders [facility], X-Ray - [address] [address] SabasLondon MD [address] [facility] [address] [place], [place] [phone] [email or web address] Pain Social History Tobacco Use [...] as of this encounter Care Teams Ordnance Truck Installation Supervisor Relationship Specialty Start Date End Date Meghna Parson MD [email or web address] PCP - General Internal Medicine 08/19/17 11/29/19 Madalyn Rogers MD [address] [place] [address] PCP - General 11/30/19 12/30/20 Meghna Parson MD [email or web address] PCP - General Internal Medicine 12/31/20 01/04/22 Marian Alicia MD [address] [place] [address] [email or web address] PCP - General Family Medicine 01/05/22 Demond Roger MD [address] [place] [address] [email or web address] Historical LMR Provider 02/24/15 10/21/21 Tianna Coello MD [address] [place] [address] [email or web address] Historical LMR Provider 02/24/15 10/21/21 Yasmeen Ward MD [email or web address] Historical LMR Provider 02/24/1510/21 Macho Vincent DO [address] [place] [address] [email or web address] Primary Oncologist Hematology and Oncology 09/13/21 Camila Nayak FNP [address] [place] [address] [email or web address] Nurse Practitioner Medical Oncology 11/03/21 Mile Reynolds CNP [address] [place] [address] [email or web address] Nurse Practitioner Medical Oncology 11/03/21 documented as of this encounter Additional Source Comments The information contained in this document represents components of the legal health record. It is not the complete legal health record.[facility]
--- OUTSIDE RECORDS SUMMARY | 2025-07-05 06:03 | XMS_ITS | Encounter Summary ---
Author Organization [facility] Address [address] [facility] [address] [place] [address] Phone Care Team Providers Care Scientific Editor Name Role Phone Demond Roger MD Unavailable [phone] FeltTianna ng MD Unavailable [phone] Yasmeen Ward MD Unavailable [email or web address] Meghna Parson MD Primary Care Provi vipin Madalyn Rogers MD Primary Care Provide r Meghna Parson MD Primary Care Provi vipin Macho Vincent DO Unavailable Camila Nayak BELT KNIFE FEEDER Unavailable [phone] Reynolds WORM PICKER Unavailable Marian Alicia MD Primary Care Provider [phone] Encounter Details Date Type Department Care Team (Late st Contact Info) Description 03/05/2018 Ancillary Orders Virtual Department 30 [place] [address] London Obregon MD [address] [facility] [address] [place] [address] [email or web address] Dyspnea, unspecified type; Hypoxemia; Cough; Wheeze; Pulmonary [...] documented as of this encounter Care Teams Scientific Editor Relationship Specialty Start Date End Date Meghna Parson MD [email or web address] PCP - General Internal Medicine 08/19/17 11/29/19 Madalyn Rogers MD [address] [place] [address] PCP - General 11/30/19 12/30/20 Meghna Parson MD [email or web address] PCP - General Internal Medicine 12/31/20 01/04/22 Marian Alicia MD [address] [place] [address], [facility] [[email or web address] 7 [place] [address] [email or web address] PCP - General Family Medicine 01/05/22 Demond Roger MD [address] [place] [address] [email or web address] Historical LMR Provider 02/24/15 10/21/21 Tianna Coello MD [address] [place] [address] [email or web address] Historical LMR Provider 02/24/15 10/21/21 Yasmeen Ward MD [email or web address] Historical LMR Provider 02/24/1510/21 Macho Vincent DO [address] [place] [address] [email or web address] Primary Oncologist Hematology and Oncology 09/13/21 Camila Nayak FNP [address] [place] [address] [email or web address] Nurse Practitioner Medical Oncology 11/03/21 Mile Reynolds CNP [address] [place] [address] [email or web address] Nurse Practitioner Medical Oncology 11/03/21 documented as of this encounter Additional Source Comments The information contained in this document represents components of the legal health record. It is not the complete legal health record.[facility]
--- OUTSIDE RECORDS SUMMARY | 2025-07-05 06:03 | XMS_ITS | Encounter Summary ---
Author Organization [facility] Address [address] [employer] [address] [place] [address] Phone Care Team Providers Care Box Brander Name Role Phone Demond Roger MD Unavailable [phone] FeltmateTianna MD Unavailable [phone] Yasmeen Ward MD Unavailable [email or web address] Madalyn Rogers MD Primary Care Provide r Meghna Parson MD Primary Care Provi vipin CarltonMacho gary W DO Unavailable [phone] Camila Nayak MILLER KILN DRIED SALT Unavailable [phone] [employer] FINANCIAL ADMINISTRATOR Unavailable Marian Alicia MD Primary Care Provider [phone] Encounter Details Date Type Department Care Team (Late st Contact Info) Description 07/14/2020 Ancillary Orders Virtual Department 30 [place] [address] Meghna Parson MD [address] [place], [place] [phone] [email or web address] Breast screening Social History Tobacco Use Types [...] and compared with multiple prior studies, most groymtfp50/25/2019, with utilization of computer-aided detection. The breasts [...] documented as of this encounter Care Teams Box Brander Relationship Specialty Start Date End Date aMdalyn Rogers MD [address] [place] [address] PCP - General 11/30/19 12/30/20 Meghna Parson MD [address] [place] [address] PCP - General Internal Medicine 12/31/20 01/04/22 Marian Alicia MD [address] [place] [address], [facility] 7 [place] [address] [email or web address] PCP - General Family Medicine 01/05/22 Demond Roger MD [address] [place] [address] [email or web address] Historical LMR Provider 02/24/15 10/21/21 Tianna Coello MD [address] [place] [address] [email or web address] Historical LMR Provider 02/24/15 10/21/21 Yasmeen Ward MD [email or web address] Historical LMR Provider 02/24/1510/21 Macho Vincent DO [address] [place] [address] [email or web address] Primary Oncologist Hematology and Oncology 09/13/21 Camila Nayak FNP [address] [place] [address] [email or web address] Nurse Practitioner Medical Oncology 11/03/21 Mile Reynolds CNP [address] [place] [address] [email or web address] Nurse Practitioner Medical Oncology 11/03/21 documented as of this encounter Additional Source Comments The information contained in this document represents components of the legal health record. It is not the complete legal health record.[facility]
--- OUTSIDE RECORDS SUMMARY | 2025-07-05 06:03 | XMS_ITS | Encounter Summary ---
Author Organization [facility] Address [address] [facility] [address] [place] [address] Phone Care Team Providers Care Botany Professor Name Role Phone Demond Roger MD Unavailable [phone] FeltTianna ng MD Unavailable [phone] Yasmeen Ward MD Unavailable [email or web address] Meghna Parson MD Primary Care Provi vipin Madalyn Rogers MD Primary Care Provide r Meghna Parson MD Primary Care Provi vipin Macho Vincent DO Unavailable [phone] Camila Nayak SENIOR COMPENSATION CONSULTANT Unavailable Mile Reynolds COMPUTER SUPPORT SPECIALIST Unavailable Marian Alicia MD Primary Care Provider [phone] Encounter Details Date Type Department Care Team (Late st Contact Info) Description 10/28/2018 Transcribe Orders [facility] Specimen Processing 30 [place] [address] Meghna Parson MD [address] [place], [place] [phone] [email or web address] Urinary tract infection without hematuria, site unspecified [...] Specimen Source/ Description URINE CLEAN CATCH URINE [facility] Special Requests None [facility] GRAM STAIN NO ORGANISMS SEEN [facility] Culture/Test 10,000 to 100,000 colony forming units per ml MIXED HAYLEE (3 OR MORE COLONY TYPES) Culture indicates contamination . Please resubmit if necessary.(A) [facility] Report Status 10/30/2018 FINAL [facility] Urine (Urine) 10/28/2018 4:3 7 PM EST 10/28/2018 4:39 PM EST us Meghna Parson MD MICROBIOLOGY - [facility] ORDERABLES Final Result [facility] 30 [place] [address] * (ABNORMAL) Urinalysis (10/28/2018 4:37 PM EST) COLOR Yellow Yellow [facility] CLARITY Clear [facility] GLUCOSE Negative Negative [facility] BILI Negative Negative [facility] KETONES Negative Negative [facility] SPECIFIC GRAVITY 1.010 1.005 - 1.030 [facility] BLOOD Negative Negative [facility] PH 6.0 5.0 - 8.0 [facility] Protein-UA Negative Negative [facility] NITRITE Negative Negative [facility] Leukocyte esterase, ur Trace(A) Negative [facility] Urine (Urine) 10/28/2018 4:3 7 PM EST 10/28/2018 4:39 PM EST Meghna Parson MD URINE ORDERABLES Fi nal Result [facility] 30 [place] [address] documented in this encounter Visit Diagnoses Diagnosis [...] documented as of this encounter Care Teams Botany Professor Relationship Specialty Start Date End Date Meghna Parson MD [email or web address] PCP - General Internal Medicine 08/19/17 11/29/19 Madalyn Rogers MD [address] [place] [address] PCP - General 11/30/19 12/30/20 Meghna Parson MD [email or web address] PCP - General Internal Medicine 12/31/20 01/04/22 Marian Alicai MD [address] [place] [address] 7 [place] [address] PCP - General Family Medicine 01/05/22 Demond Roger MD [address] [place] [address] [email or web address] Historical LMR Provider 02/24/15 10/21/21 Tianna Coello MD [address] [place] [address] [email or web address] Historical LMR Provider 02/24/15 10/21/21 Yasmene Ward MD [email or web address] Historical LMR Provider 02/24/1510/21 Macho Vincent DO [address] [place] [address] [email or web address] Primary Oncologist Hematology and Oncology 09/13/21 Camila Nayak FNP [address] [place] [address] Nurse Practitioner Medical Oncology 11/03/21 Mile Reynolds CNP [address] [place] [address] [email or web address] Nurse Practitioner Medical Oncology 11/03/21 documented as of this encounter Additional Source Comments The information contained in this document represents components of the legal health record. It is not the complete legal health record.[facility]
--- OUTSIDE RECORDS SUMMARY | 2025-07-05 06:03 | XMS_ITS | Encounter Summary ---
Author Organization [facility] Address [address] [facility] [address] [place] [address] Phone Care Team Providers Care Content Publisher Name Role Phone Demond Roger MD Unavailable [phone] FeltTianna ng MD Unavailable [phone] Yasmeen Ward MD Unavailable [email or web address] Meghna Parson MD Primary Care Provi vipin Madalyn Rogers MD Primary Care Provide r Meghna Parson MD Primary Care Provi vipin Macho Vincent DO Unavailable [phone] Camila Nayak SHOWROOM SALES ASSISTANT Unavailable Mile Renyolds FUNERAL DIRECTOR AND EMBALMER Unavailable Marian Alicia MD Primary Care Provider [phone] Encounter Details Date Type Department Care Team (Late st Contact Info) Description 04/17/2018 Ancillary Orders [facility], X-Ray - [address] [address] Meghna Parson MD [address] [place], [place] [phone] [email or web address] Cough; Wheezing Social History Tobacco Use Types [...] documented as of this encounter Care Teams Content Publisher Relationship Specialty Start Date End Date Meghna Parson MD [email or web address] PCP - General Internal Medicine 08/19/17 11/29/19 Madalyn Rogers MD [address] [place] [address] PCP - General 11/30/19 12/30/20 Meghna Parson MD [email or web address] PCP - General Internal Medicine 12/31/20 01/04/22 Marian Alicia MD [address] [place] [address] [email or web address] PCP - General Family Medicine 01/05/22 Demond Roger MD [address] [place] [address] [email or web address] Historical LMR Provider 02/24/15 10/21/21 Tianna Coello MD [address] [place] [address] [email or web address] Historical LMR Provider 02/24/15 10/21/21 Yasmeen Ward MD [email or web address] Historical LMR Provider 02/24/1510/21 Macho Vincent DO [address] [place] [address] [email or web address] Primary Oncologist Hematology and Oncology 09/13/21 Camila Nayak FNP [address] [place] [address] [email or web address] Nurse Practitioner Medical Oncology 11/03/21 Mile Reynolds CNP [address] [place] [address] [email or web address] Nurse Practitioner Medical Oncology 11/03/21 documented as of this encounter Additional Source Comments The information contained in this document represents components of the legal health record. It is not the complete legal health record.[facility]
--- OUTSIDE RECORDS SUMMARY | 2025-07-05 06:03 | XMS_ITS | Encounter Summary ---
Author Organization [facility] Address [address] [facility] [address] [place] [address] Phone Care Team Providers Care Road Monkey Name Role Phone Demond Roger MD Unavailable [phone] FeltTianna ng MD Unavailable [phone] Yasmeen Ward MD Unavailable [email or web address] Meghna Parson MD Primary Care Provi vipin Madalyn Rogers MD Primary Care Provide r Meghna Parson MD Primary Care Provi vipin Macho Vincent DO Unavailable Camila Nayak SMASH FIXER Unavailable [phone] Reynolds SECURITY SHIFT MANAGER Unavailable Marian Alicia MD Primary Care Provider [phone] Encounter Details Date Type Department Care Team (Latest Contact Info) Description 05/29/2018 Transcribe Orders [facility] Specimen Processing 30 [place] [address] London Obregon MD [address] [facility] [address] [place], [place] [id number] [email or web address] Urinary tract infection without hematuria, site unspecified [...] EDT) Specimen Source/ Description URINE URINE URINE [facility] Special Requests None [facility] GRAM STAIN NO ORGANISMS SEEN [facility] Culture/Test 10,000 to 100,000 colony forming units per ml MIXED HAYLEE (3 OR MORE COLONY TYPES) Culture indicates contamination . Please resubmit if necessary. [facility] Report Status 05/31/2018 FINAL [facility] Urine (Urine) 05/29/2018 4:3 7 PM EDT 05/29/2018 4:39 PM EDT London Obregon MD MICROBIOLOGY - GENERAL ORDERABL ES Final Result [address] [address] * (ABNORMAL) Urinalysis (05/29/2018 4:37 PM EDT) COLOR STRAW(A) Yellow [facility] CLARITY Clear [facility] GLUCOSE Negative Negative [facility] BILI Negative Negative [facility] KETONES Negative Negative [facility] SPECIFIC GRAVITY <1.005 1.005 - 1.030 [facility] BLOOD Negative Negative [facility] PH 5.5 5.0 - 8.0 [facility] Protein-UA Negative Negative [facility] NITRITE Negative Negative [facility] Leukocyte esterase, ur Negative Negative [facility] Urine (Urine) 05/29/2018 4:3 7 PM EDT 05/29/2018 4:39 PM EDT London Obregon MD URINE ORDERABLES Final Result Performing Organization Address City/State/[facility] Co de Phone Number [facility] [address] [place] [address] documented in this encounter Visit Diagnoses Diagnosis [...] as of this encounter Care Teams Road Monkey Relationship Specialty Start Date End Date Meghna Parson MD [email or web address] PCP - General Internal Medicine 08/19/17 11/29/19 Madalyn Rogers MD [address] [place] [address] PCP - General 11/30/19 12/30/20 Meghna Parson MD [email or web address] PCP - General Internal Medicine 12/31/20 01/04/22 Marian Alicia MD [address] [place] [address] 7 [place] [address] PCP - General Family Medicine 01/05/22 Demond Roger MD [address] [place] [address] [email or web address] Historical LMR Provider 02/24/15 10/21/21 Tianna Coello MD [address] [place] [address] [email or web address] Historical LMR Provider 02/24/15 10/21/21 Yasmeen Ward MD [email or web address] Historical LMR Provider 02/24/1510/21 Macho Vincent DO [address] [place] [address] [email or web address] Primary Oncologist Hematology and Oncology 09/13/21 Camila Nayak FNP [address] [place] [address] Nurse Practitioner Medical Oncology 11/03/21 Mile Reynolds CNP [address] [place] [address] [email or web address] Nurse Practitioner Medical Oncology 11/03/21 documented as of this encounter Additional Source Comments The information contained in this document represents components of the legal health record. It is not the complete legal health record.[facility]
--- OUTSIDE RECORDS SUMMARY | 2025-07-05 06:03 | XMS_ITS | Encounter Summary ---
Author Organization [facility] Address [address] [place] [address] Phone Care Team Providers Care Surface Hydrologist Name Role Phone Aretha Bain NP Primary Care Provider [phone] Encounter Details Date Type Department Care Team (Late Contact Info) Description 08/12/2023 Documentation Only [facility] [address] [place] [phone] Marian Alicia MD [address] [place] [address] Social History Tobacco Use Types Packs/Day Years [...] Visit [facility] [address] [place] [phone] Jamison Avila MD [address] [place] [address] [place] [address] documented as of this encounter Visit Diagnoses Not on filedocumented in this encounter Care Teams Surface Hydrologist Relationship Specialty Start Date End Date Aretha Bain NP [address] [place] [address] 1 [place] [address] PCP - General Nurse Practitioner 04/12/25 documented as of this encounter
--- OUTSIDE RECORDS SUMMARY | 2025-07-05 06:03 | XMS_ITS | Encounter Summary ---
Author Organization [facility] Address [address] [facility] [address] [place] [address] Phone Care Team Providers Care Meter Readers Supervisor Name Role Phone Demond Roger MD Unavailable [phone] FeltTianna ng MD Unavailable [phone] Yasmeen Ward MD Unavailable [email or web address] Meghna Parson MD Primary Care Provi vipin Madalyn Rogers MD Primary Care Provide r Meghna Parson MD Primary Care Provi vipin Macho Vincent DO Unavailable [phone] Camila Nayak ADMINISTRATOR PESTICIDE Unavailable Mile Reynolds GAS REVERSER Unavailable Marian Alicia MD Primary Care Provider [phone] Encounter Details Date Type Department Care Team (Late st Contact Info) Description 07/31/2018 Ancillary Orders Virtual Department 30 [place] [address] Meghna Parson MD [address] [place], [place] [phone] [email or web address] Breast screening Social History Tobacco Use [...] There are scattered fibroglandular densities. POS - [id number] Narrative 09/05/2018 9:29 AM EST Bilateral mammography [...] There are scattered fibroglandular densities. POS - [id number] Meghna Parson MD IMG MG EXAMS Fin [...] as of this encounter Care Teams Meter Readers Supervisor Relationship Specialty Start Date End Date Meghna Parson MD [email or web address] PCP - General Internal Medicine 08/19/17 11/29/19 Madalyn Rogers MD [address] [place] [address] PCP - General 11/30/19 12/30/20 Meghna Parson MD [email or web address] PCP - General Internal Medicine 12/31/20 01/04/22 Marian Alicia MD [address] [place] [address], [address] [place] [address] [email or web address] PCP - General Family Medicine 01/05/22 Demond Roger MD [address] [place] [address] [email or web address] Chao LMR Provider 02/24/15 10/21/21 Tianna Coello MD [address] [place] [address] [email or web address] Historical LMR Provider 02/24/15 10/21/21 Yasmeen Ward MD [email or web address] Historical LMR Provider 02/24/1510/21 Macho Vincent DO [address] [place] [address] [email or web address] Primary Oncologist Hematology and Oncology 09/13/21 Camila Nayak FNP [address] [place] [address] [email or web address] Nurse Practitioner Medical Oncology 11/03/21 Mile Reynolds CNP [address] [place] [address] [email or web address] Nurse Practitioner Medical Oncology 11/03/21 documented as of this encounter Additional Source Comments The information contained in this document represents components of the legal health record. It is not the complete legal health record.[facility]
--- OUTSIDE RECORDS SUMMARY | 2025-07-05 06:03 | XMS_ITS | Encounter Summary ---
Author Organization [facility] Address [address] [facility] [address] [place] [address] Phone Care Team Providers Care Associate Chemist Name Role Phone Demond Roger MD Unavailable [phone] FeltTianna ng MD Unavailable [phone] Yasmeen Ward MD Unavailable [email or web address] Meghna Parson MD Primary Care Provi vipin Madalyn Rogers MD Primary Care Provide r Meghna Parson MD Primary Care Provi vipin Macho Vincent DO Unavailable Camila Nayak POULTRY CLEANER Unavailable [phone] STRATEGIC MARKETING LEADER Unavailable Marian Alicia MD Primary Care Provider [phone] Encounter Details Date Type Department Care Team (Late st Contact Info) Description 12/10/2018 Ancillary Orders [facility], X-Ray - [address] [address] Meghna Parson MD [address] [place], [place] [id number] [email or web address] Social History Tobacco Use Types Packs/Day [...] joints. Facet arthritic changes notable L3 through [id number]. IMPRESSION: No evidence for acute fracture. Degenerative [...] joints. Facet arthritic changes notable L3 through [id number]. IMPRESSION: No evidence for acute fracture. Degenerative [...] documented as of this encounter Care Teams Associate Chemist Relationship Specialty Start Date End Date Meghna Parson MD [email or web address] PCP - General Internal Medicine 08/19/17 11/29/19 Madalyn Rogers MD [address] [place] [address] PCP - General 11/30/19 12/30/20 Meghna Parson MD [email or web address] PCP - General Internal Medicine 12/31/20 01/04/22 Marian Alicia MD [address] [place] [address], [address] [place] [address] [email or web address] PCP - General Family Medicine 01/05/22 Demond Roger MD [address] [place] [address] [email or web address] Historical LMR Provider 02/24/15 10/21/21 Tianna Coello MD [address] [place] [address] [email or web address] Historical LMR Provider 02/24/15 10/21/21 Yasmeen Ward MD [email or web address] Historical LMR Provider 02/24/1510/21 Macho Vincent DO [address] [place] [address] [email or web address] Primary Oncologist Hematology and Oncology 09/13/21 Camila Nayak FNP [address] [place] [address] [email or web address] Nurse Practitioner Medical Oncology 11/03/21 Mile Reynolds CNP [address] [place] [address] [email or web address] Nurse Practitioner Medical Oncology 11/03/21 documented as of this encounter Additional Source Comments The information contained in this document represents components of the legal health record. It is not the complete legal health record.[facility]
--- OUTSIDE RECORDS SUMMARY | 2025-07-05 06:03 | XMS_ITS | Clinical Summary ---
Author Organization [facility], Address [address] [place] [address] Phone Care Team Providers Care Vp Analytics Name Role Phone Aretha Bain NP Primary Care Provider [phone] Allergies Active Allergy Reactions Criticality Noted Date [...] Visit [facility] [address] [place] [address] Jamison Avila MD Hypertensive heart and chronic [...] Office Visit [facility] [address] [place] [phone] Jamison Avila MD [address] [facility] [place] [phone] Health Maintenance Due Date Last Done Comments [...] Discontinued 05/25/2008, 05/05/2008, 05/05/2008 Insurance Medicaid [place] [facility] Care Teams Vp Analytics Relationship Specialty Start Date End Date Aretha Bain NP [address] [facility] 1 [place] [address] PCP - General Nurse Practitioner 04/12/25
--- OUTSIDE RECORDS SUMMARY | 2025-07-05 06:03 | XMS_ITS | Encounter Summary ---
Author Organization [facility] Address [address] [facility] [address] [place] [address] Phone Care Team Providers Care Security Compliance Engineer Name Role Phone Demond Roger MD Unavailable [phone] FeltmateTianna MD Unavailable [phone] Yasmeen Ward MD Unavailable [email or web address] Meghna Parson MD Primary Care Provi vipin CarltonMacho gary W DO Unavailable Camila Nayak STUDENT AFFAIRS VICE PRESIDENT Unavailable Mile Reynolds SENIOR CARE SPECIALIST Unavailable Marian Alicia MD Primary Care Provider [phone] Encounter Details Date Type Department Care Team (Late st Contact Info) Description 08/28/2021 Procedure Pass [facility] [address] [place], [place] [id number] Social History Tobacco Use Types Packs/Day Years [...] documented as of this encounter Care Teams Security Compliance Engineer Relationship Specialty Start Date End Date Meghna Parson MD [email or web address] PCP - General Internal Medicine 12/31/20 01/04/22 Marian Alicia MD [address] [place] [address] 7 [place] [address] [email or web address] PCP - General Family Medicine 01/05/22 Demond Roger MD [address] [place] [address] [email or web address] Historical LMR Provider 02/24/15 10/21/21 Tianna Coello MD [address] [place] [address] [email or web address] Historical LMR Provider 02/24/15 10/21/21 Yasmeen Ward MD [email or web address] Historical LMR Provider 02/24/1510/21 Macho Vincent DO [address] [place] [address] [email or web address]. [facility] Primary Oncologist Hematology and Oncology 09/13/21 Camila Nayak FNP [address] [place] [address] [email or web address] Nurse Practitioner Medical Oncology 11/03/21 Mile Reynolds CNP [address] [place] [address] [email or web address] Nurse Practitioner Medical Oncology 11/03/21 documented as of this encounter Additional Source Comments The information contained in this document represents components of the legal health record. It is not the complete legal health record.[facility]
--- OUTSIDE RECORDS SUMMARY | 2025-07-05 06:03 | XMS_ITS | Encounter Summary ---
Author Organization [facility] Address [address] [facility] [address] [place] [address] Phone Care Team Providers Care Machine Stuffer Name Role Phone Demond Roger MD Unavailable [phone] FeltTianna ng MD Unavailable [phone] Yasmeen Ward MD Unavailable [email or web address] Meghna Parson MD Primary Care Provi vipin Madalyn Rogers MD Primary Care Provide r Meghna Parson MD Primary Care Provi vipin Macho Vincent DO Unavailable [phone] Camila Nayak SKIN PILER Unavailable Mile Reynolds SALESFORCE TRAINER Unavailable Marian Alicia MD Primary Care Provider [phone] Encounter Details Date Type Department Care Team (Late st Contact Info) Description 04/24/2018 Transcribe Orders [facility] [address] [place] [address] Meghna Parson MD [address] [place], [place] [id number] [email or web address] Screening for tuberculosis (Primary Dx) Social History [...] * Quantiferon-TB Gold (04/24/2018 4:17 PM EDT) [facility] QuantiFERON-TB Gold Negative Negative [facility] Comment: (NOTE) No interferon-gamma [...] MED/PATH SUPERIOR Mitogen minus Nil >10.00 IU/mL [facility] MED/PATH SUPERIOR HODGE Nil Result 0.01 IU/mL [facility] MED/PATH SUPERIOR HODGE Blood 04/24/2018 4:17 PM EDT 04/24/2018 4:18 PM EDT us Meghna Parson MD LAB BLOOD ORDERABLE S Final Result [facility] [address] [place] [address] documented in this encounter Visit Diagnoses Diagnosis [...] documented as of this encounter Care Teams Machine Stuffer Relationship Specialty Start Date End Date Meghna Parson MD [email or web address] PCP - General Internal Medicine 08/19/17 11/29/19 Madalyn Rogers MD [address] [place] [address] PCP - General 11/30/19 12/30/20 Meghna Parson MD [email or web address] PCP - General Internal Medicine 12/31/20 01/04/22 Marian Alicia MD [address] [place] [address] 7 [place] [address] [email or web address] PCP - General Family Medicine 01/05/22 Demond Roger MD [address] [place] [address] [email or web address] Historical LMR Provider 02/24/15 10/21/21 Tianna Coello MD [address] [place] [address] [email or web address] Historical LMR Provider 02/24/15 10/21/21 Yasmeen Ward MD [email or web address] Historical LMR Provider 02/24/1510/21 Macho Vincent DO [address] [place] [address] [email or web address] Primary Oncologist Hematology and Oncology 09/13/21 Camila Nayak FNP [address] [place] [address] [email or web address] Nurse Practitioner Medical Oncology 11/03/21 Mile Reynolds CNP [address] [place] [address] [email or web address] Nurse Practitioner Medical Oncology 11/03/21 documented as of this encounter Additional Source Comments The information contained in this document represents components of the legal health record. It is not the complete legal health record.[facility]
--- OUTSIDE RECORDS SUMMARY | 2025-07-05 06:03 | XMS_ITS | Encounter Summary ---
Author Organization [facility] Address [address] [facility] [address] [place] [address] Phone Care Team Providers Care Flooring Mechanic Name Role Phone Demond Roger MD Unavailable [phone] FeltmateTianna MD Unavailable [phone] Yasmeen Ward MD Unavailable [email or web address] Madalyn Rogers MD Primary Care Provide r Meghna Parson MD Primary Care Provi vipin Macho Vincent W DO Unavailable [phone] Camila Nayak ELEVATOR SERVICE MECHANIC Unavailable [address] Reynolds BIOLOGICS SPECIALIST Unavailable Marian Alicia MD Primary Care Provider [phone] Encounter Details Date Type Department Care Team (Late st Contact Info) Description 07/14/2020 Procedure Pass [facility], [address] [id number] Social History Tobacco Use Types Packs/Day Years [...] documented as of this encounter Care Teams Flooring Mechanic Relationship Specialty Start Date End Date Madalyn Rogers MD [address] [place] [address] PCP - General 11/30/19 12/30/20 Meghna Parson MD [address] [place] [address] [email or web address] PCP - General Internal Medicine 12/31/20 01/04/22 Marian Alicia MD [address] [place] [address], [facility] 7 [place] [address] [email or web address] PCP - General Family Medicine 01/05/22 Demond Roger MD [address] [place] [address] [email or web address] Historical LMR Provider 02/24/15 10/21/21 Tianna Coello MD [address] [place] [address] [email or web address] Historical LMR Provider 02/24/15 10/21/21 Yasmeen Ward MD [email or web address] Historical LMR Provider 02/24/1510/21 Macho Vincent DO [address] [place] [address] [email or web address] Primary Oncologist Hematology and Oncology 09/13/21 Camila Nayak FNP [address] [place] [address] [email or web address] Nurse Practitioner Medical Oncology 11/03/21 Mile Reynolds CNP [address] [place] [address] [email or web address] Nurse Practitioner Medical Oncology 11/03/21 documented as of this encounter Additional Source Comments The information contained in this document represents components of the legal health record. It is not the complete legal health record.[facility]
--- OUTSIDE RECORDS SUMMARY | 2025-07-05 06:03 | XMS_ITS | Encounter Summary ---
Author Organization [facility] Address [address] [address] Phone Care Team Providers Care Technology Director Name Role Phone Demond Roger MD Unavailable [phone] FeltTianna ng MD Unavailable [phone] Yasmeen Ward MD Unavailable [email or web address] Meghna Parson MD Primary Care Provi vipin Madalyn Rogers MD Primary Care Provide r Meghna Parson MD Primary Care Provi vipin Macho Vincent DO Unavailable [phone] Camila Nayak BUSINESS REPRESENTATIVE Unavailable [phone] SUPERINTENDENT COMPRESSOR STATIONS Unavailable Marian Alicia MD Primary Care Provider [phone] Reason for Referral * Physical Therapy (Routine) - Closed Specialty Diagnoses / Procedures Referred By Thompson t Referred To Contact Physical Therapy Diagnoses SI (sacroiliac) pain Meghna Parson MD Phone: tel: mailto:[email or web address] [address] [place] [address] Phone: tel: Referral ID Status Reason Start Date Expiration Date Visits Re quested Visits Authorized [id number] Closed 01/27/2019 01/28/2020 1 1 Encounter Details Date Type Department Care Team (Latest Contact Info) Description 01/27/2019 Transcribe Orders [facility] [address] [place] [address] Meghna Parson MD [address] [place] [address] [email or web address] SI (sacroiliac) pain (Primary Dx) Social History [...] Order Schedule Ambulatory referral to [facility] Physical Therapy Outpatient Referral Routine SI (sacroiliac) [...] documented as of this encounter Care Teams Technology Director Relationship Specialty Start Date End Date Meghna Parson MD [email or web address] PCP - General Internal Medicine 08/19/17 11/29/19 Madalyn Rogers MD [address] [place] [address] PCP - General 11/30/19 12/30/20 Meghna Parson MD [email or web address] PCP - General Internal Medicine 12/31/20 01/04/22 Marian Alicia MD [address] [place] [address] [email or web address] PCP - General Family Medicine 01/05/22 Demond Roger MD [address] [place] [address] [email or web address] Historical LMR Provider 02/24/15 10/21/21 Tianna Coello MD [address] [place] [address] [email or web address] Historical LMR Provider 02/24/15 10/21/21 Yasmeen Ward MD [email or web address] Historical LMR Provider 02/24/1510/21 Macho Vincent DO [address] [place] [address] [email or web address]. [facility] Primary Oncologist Hematology and Oncology 09/13/21 Camila Nayak FNP [address] [place] [address] [email or web address] Nurse Practitioner Medical Oncology 11/03/21 Mile Reynolds CNP [address] [place] [address] [email or web address] Nurse Practitioner Medical Oncology 11/03/21 documented as of this encounter Additional Source Comments The information contained in this document represents components of the legal health record. It is not the complete legal health record.[facility]
--- OUTSIDE RECORDS SUMMARY | 2025-07-05 06:03 | XMS_ITS | Encounter Summary ---
Author Organization [facility] Address [address] [facility] [address] [place] [address] Phone Care Team Providers Care Guest Experience Captain Name Role Phone Demond Roger MD Unavailable [phone] FeltTianna ng MD Unavailable [phone] Yasmeen Ward MD Unavailable [email or web address] Meghna Parson MD Primary Care Provi vipin Madalyn Rogers MD Primary Care Provide r Meghna Parson MD Primary Care Provi vipin Macho Vincent DO Unavailable Camila Nayak CHIEF DEPUTY COURT CLERK Unavailable [phone] Reynolds SENIOR TRIAL ATTORNEY Unavailable Marian Alicia MD Primary Care Provider [phone] Encounter Details Date Type Department Care Team (Latest Contact Info) Description 07/21/2018 Transcribe Orders [facility] Laboratory [address] [place] [address] Steven Trinidad, DO [address], [address] [place] [address] [email or web address] Hypogammaglobulinemia (Primary Dx) Social History [...] IMMUNOGLOBULIN G 478(L) 700 - 1,600 mg/dL [facility] IgA 67(L) 70 - 400 mg/dL [facility] IMMUNOGLOBULIN M 43 40 - 230 mg/dL [facility] Blood 07/21/2018 10:4 1 AM EDT 07/21/2018 10:52 AM EDT us Steven Trinidad DO LAB BLOOD ORDERABLES Final R esult [facility] [address] [place] [address] * (ABNORMAL) IgG subclasses (07/21/2018 10:41 AM EDT) Pathologist [facility] IGG 1 217(L) 341 - 894 mg/dL [facility] DPT OF LAB MED AND PAT+ IGG 2 181 171 - 632 mg/dl [facility] DPT OF LAB MED AND PAT+ IGG 3 85.1 18.4 - 106.0 mg/dl [facility] DPT OF LAB MED AND PAT+ IGG 4 10.7 2.4 - 121.0 mg/dl [facility] DPT OF LAB MED AND PAT+ TOTAL IGG 463(L) 767 - 1,590 mg/dl [facility] DPT OF LAB MED AND PAT+ Blood 07/21/2018 10:4 1 AM EDT 07/21/2018 10:51 AM EDT Steven Trinidad DO LAB BLOOD ORDERABLES Final R esult [facility] DPT OF LAB MED AND PAT+ [address] [place] [address] * (ABNORMAL) Monoclonal protein study, serum (07/21/2018 10:41 AM EDT) TOTAL PROTEIN 5.9(L) 6.3 - 7.9 g/dL [facility] DPT OF LAB MED AND PAT+ ALBUMIN 3.2(L) 3.4 - 4.7 g/dL [facility] DPT OF LAB MED AND PAT+ ALPHA-1 GLOBULIN 0.2 0.1 - 0.3 g/dL [facility] DPT OF LAB MED AND PAT+ ALPHA-2 GLOBULIN 1.0 0.6 - 1.0 g/dL [facility] DPT OF LAB MED AND PAT+ BETA-GLOBULIN 0.9 0.7 - 1.2 g/dL [facility] DPT OF LAB MED AND PAT+ GAMMA-GLOBULIN 0.5(L) 0.6 - 1.6 g/dL [facility] DPT OF LAB MED AND PAT+ A/G RATIO 1.19 [facility] DPT OF LAB MED AND PAT+ M SPIKE Test component not applicable or not reported. not reported [facility] DPT OF LAB MED AND PAT+ M SPIKE Test component not applicable or not reported. not reported [facility] DPT OF LAB MED AND PAT+ IMPRESSION SEE NOTE [facility] DPT OF LAB MED AND PAT+ Comment: (NOTE) Hypogammaglobulinemia See Immunofixation. IMMUNOFIXATION No monoclonal protein detected. [facility] DPT OF LAB MED AND PAT+ Blood 07/21/2018 10:4 1 AM EDT 07/21/2018 10:51 AM EDT Steven Trinidad DO LAB BLOOD ORDERABLES Final R esult [facility] DPT OF LAB MED AND PAT+ [address] [place] [address] * Tetanus antitoxoid antibody, IgG (07/21/2018 10:41 AM EDT) Tetanus Ab, IgG Positive [facility] LAB MED/PATH SUPERIOR HODGE Comment: (NOTE) REFERENCE VALUE Vaccinated: Positive (>= 0.01 IU/mL) Unvaccinated: Negative (< 0.01 IU/mL) Tetanus IgG Value 1.97 IU/mL [facility] DEP LAB MED/PATH SUPERIOR Comment: (NOTE) ADDITIONAL INFORMATION This test was developed and its performance characteristics determined by [facility] in a manner consistent with CLIA requirements. This test has not been cleared or approved by the U.S. Food and Drug Administration. Blood 07/21/2018 10:4 1 AM EDT 07/21/2018 10:51 AM EDT Steven Trinidad LAB BLOOD ORDERABLES Final R esult [facility] LAB MED/PATH SUPERIOR [address] [place] [address] * (ABNORMAL) Comprehensive metabolic panel (07/21/2018 10:41 AM EDT) Pathologist [facility] SODIUM 145 133 - 146 mmol/L [facility] POTASSIUM 4.0 3.3 - 5.1 mmol/L [facility] CHLORIDE 106 96 - 108 mmol/L [facility] CO2 28 21 - 35 mmol/L [facility] BUN 14 6 - 19 mg/dL [facility] CREATININE 1.00 0.5 - 1.5 mg/dL [facility] GLUCOSE 84 70 - 99 mg/dL [facility] ALBUMIN 4.1 3.9 - 4.8 g/dL [facility] TOTAL PROTEIN 6.1(L) 6.5 - 8.0 g/dL [facility] CALCIUM 9.6 8.4 - 10.3 mg/dL [facility] ALKALINE PHOSPHATASE 70 39 - 117 U/L [facility] TOTAL BILIRUBIN 0.3 0.0 - 1.2 mg/dL [facility] AST 21 0 - 37 U/L [facility] ALT 14 0 - 40 U/L [facility] GLOBULIN 2.0 1 - 4.8 g/dL [facility] EGFR 65 >59 mL/min/1.7 3m2 [facility] Comment:If patient is black, multiply result by 1.159. Estimated glomerular filtration rate calculated using the CKD-EPI equation. ANION GAP 15 10 - 20 mmol/L [facility] Blood 07/21/2018 10:4 1 AM EDT 07/21/2018 10:52 AM EDT us Steven Trinidad DO LAB BLOOD ORDERABLES Final R esult [facility] [address] [place] [address] * (ABNORMAL) CBC and differential (07/21/2018 10:41 AM EDT) WBC 7.14 3.40 - 11.20 K/uL [facility] RBC 4.86(H) 3.80 - 4.80 M/uL [facility] HGB 14.6 12.0 - 15.0 g/dL [facility] HCT 43.4 36.0 - 46.0 % [facility] PLT 259 130 - 400 K/uL [facility] MCV 89.3 79.0 - 98.0 fL [facility] MCH 30.0 27.0 - 34.8 pg [facility] MCHC 33.6 31.5 - 36.0 g/dL [facility] RDW 13.0 10.8 - 14.6 % [facility] MPV 10.0 9.4 - 12.4 fl [facility] NRBC 0.00 /100 WBCs [facility] ABSOLUTE NRBC 0.00 K/uL [facility] DIFF METHOD Auto [facility] NEUTS 58.4 45.30 - 77.70 % [facility] LYMPHS 32.5 12.30 - 39.70 % [facility] MONOS 6.7 4.10 - 12.80 % [facility] EOS 1.5 0 - 7.2 % [facility] BASOS 0.3 0 - 2.80 % [facility] Granulocytes, immature (%) 0.6 0.0 - 0.9 % [facility] ABSOLUTE NEUTS 4.17 1.40 - 7.70 K/uL [facility] ABSOLUTE LYMPHS 2.32 0.60 - 3.20 K/uL [facility] ABSOLUTE MONOS 0.48 0.11 - 0.59 K/uL [facility] ABSOLUTE EOS 0.11 0.01 - 0.50 K/uL [facility] ABSOLUTE BASOS 0.02 0.00 - 0.08 K/uL [facility] Granulocytes, immature 0.04 0.00 - 0.05 K/uL [facility] Blood 07/21/2018 10:4 1 AM EDT 07/21/2018 10:52 AM EDT Steven Trinidad DO LAB BLOOD ORDERABLES Final R esult Performing Organization Address City/State/[facility] Co de Phone Number [address] [address] documented in this encounter Visit Diagnoses Diagnosis Hypogammaglobulinemia- Primary Unspecified hypogammaglobulinemia documented in this encounter Additional Health Concerns Infection Onset Date Last Indicated Resolved Time CoV-Exposed Comment:Recent close contact documented in the COVID-19 PCR/PRO order 09/25/2021 10/03/2021 10/10/2021 1:[address] CoV-Presumed 10/09/2022 10/09/2022 10/30/2022 1:21 AM EST CoV-Risk 03/01/2023 03/01/2023 03/12/2023 1:22 AM EDT documented as of this encounter Care Teams Guest Experience Captain Relationship Specialty Start Date End Date Meghna Parson MD [email or web address] PCP - General Internal Medicine 08/19/17 11/29/19 Madalyn Rogers MD [address] [place] [address] PCP - General 11/30/19 12/30/20 Meghna Parson MD [email or web address] PCP - General Internal Medicine 12/31/20 01/04/22 Marian Alicia MD [address] [place] [address] [address] [place] [address] [email or web address] PCP - General Family Medicine 01/05/22 Demond Roger MD [address] [place] [address] [email or web address] Historical LMR Provider 02/24/15 10/21/21 Tianna Coello MD [address] [place] [address] [email or web address] Historical LMR Provider 02/24/15 10/21/21 Yasmeen Ward MD [email or web address] Historical LMR Provider 02/24/1510/21 Macho Vincent DO [address] [place] [address] [email or web address] Primary Oncologist Hematology and Oncology 09/13/21 Camila Nayak FNP [address] [place] [address] [email or web address] Nurse Practitioner Medical Oncology 11/03/21 Mile Reynolds CNP [address] [place] [address] [email or web address] Nurse Practitioner Medical Oncology 11/03/21 documented as of this encounter Additional Source Comments The information contained in this document represents components of the legal health record. It is not the complete legal health record.[facility]
--- OUTSIDE RECORDS SUMMARY | 2025-07-05 06:03 | XMS_ITS | Encounter Summary ---
Author Organization [facility] Address [address] [facility] [address] [place] [address] Phone Care Team Providers Care Arborist Name Role Phone Demond Roger MD Unavailable [phone] FeltmateTianna MD Unavailable [phone] Yasmeen Ward MD Unavailable [email or web address] Meghna Parson MD Primary Care Provi vipin CarltonMacho gary W DO Unavailable Camila Nayak BUZZLE BUFFER Unavailable Pack, Mile CUSTOM HARVESTER Unavailable Marian Alicia MD Primary Care Provider [phone] Encounter Details Date Type Department Care Team (Late st Contact Info) Description 10/03/2021 Transcribe Orders Virtual Department [address] [place] [address] Meghna Parson MD [address] [place], [place] [phone] [email or web address] Exposure to COVID-19 virus (Primary Dx) Social [...] be available within 24 to 48 hrs. [facility] Symptomatic? NO [facility] Other 10/04/2021 12:5 8 PM EST 10/04/2021 2:19 PM EST us Meghna Parson MD BODY FLUIDS AND STO OLS ORDERABLES Final Result Performing Organization Address City/State/[facility] Co de Phone Number [address] [address] [facility] [address] [place] [address] documented in this encounter Visit Diagnoses Diagnosis [...] documented as of this encounter Care Teams Arborist Relationship Specialty Start Date End Date Meghna Parson MD [email or web address] PCP - General Internal Medicine 12/31/20 01/04/22 Marian Alicia MD [address] [place] [address], [address] [place] [address] [email or web address] PCP - General Family Medicine 01/05/22 Demond Roger MD [address] [place] [address] [email or web address] Historical LMR Provider 02/24/15 10/21/21 Tianna Coello MD [address] [place] [address] [email or web address] Historical LMR Provider 02/24/15 10/21/21 Yasmeen Ward MD [email or web address] Historical LMR Provider 02/24/1510/21 Macho Vincent DO [address] [place] [address] [email or web address] Primary Oncologist Hematology and Oncology 09/13/21 Camila Nayak FNP [address] [place] [address] [email or web address] Nurse Practitioner Medical Oncology 11/03/21 Mile Reynolds CNP [address] [place] [address] [email or web address] Nurse Practitioner Medical Oncology 11/03/21 documented as of this encounter Additional Source Comments The information contained in this document represents components of the legal health record. It is not the complete legal health record.[facility]
--- OUTSIDE RECORDS SUMMARY | 2025-07-05 06:03 | XMS_ITS | Encounter Summary ---
Author Organization [facility] Address [address] [facility] [address] [place] [address] Phone Care Team Providers Care Furnace Firer Name Role Phone Demond Roger MD Unavailable [phone] FeltTianna ng MD Unavailable [phone] Yasmeen Ward MD Unavailable [email or web address] Meghna Parson MD Primary Care Provi vipin Madalyn Rogers MD Primary Care Provide r Meghna Parson MD Primary Care Provi vipin Macho Vincent DO Unavailable [phone] Camila Nayak STAVE CUTTING SUPERVISOR Unavailable [phone] PRICING LEAD Unavailable Marian Alicia MD Primary Care Provider [phone] Encounter Details Date Type Department Care Team (Late st Contact Info) Description 01/26/2019 Ancillary Orders [facility], X-Ray - [address] [address] Meghna Parson MD [address] [place], [place] [phone] [email or web address], left Social History Tobacco Use [...] as of this encounter Care Teams Furnace Firer Relationship Specialty Start Date End Date Meghna Parson MD [email or web address] PCP - General Internal Medicine 08/19/17 11/29/19 Madalyn Rogers MD [address] [place] [address] PCP - General 11/30/19 12/30/20 Meghna Parson MD [email or web address] PCP - General Internal Medicine 12/31/20 01/04/22 Marian Alicia MD [address] [place] [address] 7 [place] [address] [email or web address] PCP - General Family Medicine 01/05/22 Demond Roger MD [address] [place] [address] [email or web address] Historical LMR Provider 02/24/15 10/21/21 Tianna Coello MD [address] [place] [id number] [email or web address] Historical LMR Provider 02/24/15 10/21/21 Yasmeen Ward MD [email or web address] Historical LMR Provider 02/24/1510/21 Macho Vincent DO [address] [place] [address] [email or web address] Primary Oncologist Hematology and Oncology 09/13/21 Camila Nayak FNP [address] [place] [address] Nurse Practitioner Medical Oncology 11/03/21 Mile Reynolds CNP [address] [place] [address] Nurse Practitioner Medical Oncology 11/03/21 documented as of this encounter Additional Source Comments The information contained in this document represents components of the legal health record. It is not the complete legal health record.[facility]
--- OUTSIDE RECORDS SUMMARY | 2025-07-05 06:03 | XMS_ITS | Encounter Summary ---
Author Organization [facility] Address [address] [address] Phone Care Team Providers Care Sanforizing Machine Operator Name Role Phone Demond Roger MD Unavailable [phone] FeltTianna ng MD Unavailable [phone] Yasmeen Ward MD Unavailable [email or web address] Meghna Parson MD Primary Care Provi vipin Macho Vincent W DO Unavailable [phone] Camila Nayak ORDER CHECKER PACKER PROCESSER Unavailable [phone] SUBSTATION TECHNICIAN Unavailable Marian Alicia MD Primary Care Provider [phone] Reason for Referral * Consultation (Elective) - Closed Specialty Diagnoses / Procedures Referred By [place] t Referred To Contact Pulmonary Disease Meghna Parson MD Phone: tel: [email or web address] [address] [address] Phone: tel: Referral ID Status Reason Start Date Expiration Date Visits Re quested Visits Authorized [id number] Closed 08/25/2021 08/25/2022 1 1 Encounter Details Date Type Department Care Team (Late st Contact Info) Description 08/25/2021 Transcribe Orders [facility] Pulmonary, Allergy and Critical Care Medicine [address] [place] [address] [place] [address] Meghna Parson MD [address] [place] [address] [email or web address] Social History Tobacco Use Types Packs/Day Years [...] Associated Diagnoses Order Schedule Ambulatory referral to [facility] Pulmonology Outpatient Referral Routine Ordered: 08/25/2021 documented [...] documented as of this encounter Care Teams Sanforizing Machine Operator Relationship Specialty Start Date End Date Meghna Parson MD [email or web address] PCP - General Internal Medicine 12/31/20 01/04/22 Marian Alicia MD [address] [place] [address], [address] [place] [address] [email or web address] PCP - General Family Medicine 01/05/22 Demond Roger MD [address] [place] [address] [email or web address] Historical LMR Provider 02/24/15 10/21/21 Tianna Coello MD [address] [place] [address] [email or web address] Historical LMR Provider 02/24/15 10/21/21 Yasmeen Ward MD [email or web address] Historical LMR Provider 02/24/1510/21 Macho Vincent DO [address] [place] [address] [email or web address] Primary Oncologist Hematology and Oncology 09/13/21 Camila Nayak FNP [address] [place] [address] [email or web address] Nurse Practitioner Medical Oncology 11/03/21 Mile Reynolds CNP [address] [place] [address] [email or web address] Nurse Practitioner Medical Oncology 11/03/21 documented as of this encounter Additional Source Comments The information contained in this document represents components of the legal health record. It is not the complete legal health record.[facility]
--- OUTSIDE RECORDS SUMMARY | 2025-07-05 06:04 | XMS_ITS | Clinical Summary ---
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 Input referral to [facility] sleep med. Assessment & Plan (04/02/2018 [...] issues or concerns. She understands and agrees. 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 Assessment & Plan (04/17/2022 9:27 AM EDT): [...] staff to obtain images and records from [facility] and plan to review them once available. [...] Type Department Care Team Description 06/03/2025 Telephone [employer] [facility] [address] [place] [...] Gets the flu shot elsewhere., Ordered By: [id number]) Pneumococcal polysaccharide PPSV23 05/25/2008, Pneumococcal, Unspecified Formulation [...] SCREENING 01/24/2024 01/23/2023 BLOOD PRESSURE 05/05/2024 11/05/2023 MAMMOGRAM 02/04/2025 02/04/2023, 08/15, 09/09/2020, Additional history exists INFLUENZA VACCINE (#1) 2025 , 08/13/2022, 06/29/2021, Additional history exists COVID-19 VACCINE ( - 2024- season) 2025 10/20/2021, 12/14/2020, 11/23/2020 SCREENING FOR DIABETES 07/27/2026 07/27/2023, 2022 LIPID [...] (07/27/2023 8:13 AM EDT) HDL 56 mg/dL [facility] Comment: Interpretation <40 mg/dL: Low HDL cholesterol (major risk factor for CHD) Greater than or equal to 60 mg/dL: High HDL cholesterol ( negative risk factor for CHD) HDL - cholesterol is affected by a number of factors, e.g. smoking, excerise, hormones, sex and age. CHOLESTEROL 271(H) 0 - 240 mg/dL [facility] TRIGLYCERIDES 193(H) 30 - 160 mg/dL [facility] LDL 176(H) 50 - 129 mg/dL [facility] Comment: LDL levels in terms of risk for coronary heart disease: <100 mg/dL: Optimal 100-129 mg/dL: Near or above optimal 130-159 mg/dL: Borderline high 160-189 mg/dL: High >190 mg/dL: Very High CARDIAC RISK RATIO 4.8(H) 3.3 - 4.4 C [facility] Blood 07/27/2023 8:13 AM EDT 07/27/2023 8:21 AM EDT us Marian Alicia MD LAB BLOOD ORDERABLES Bonnie l Result Performing Organization Address City/State/[facility] Co de Phone Number [address] [address] * BI MAMMOGRAM SCREENING WITH TOMOSYNTHESIS WITH [...] Most Recently Relevant to Health Maintenance Insurance [facility] [employer] [place] [address] [place] [address] [place] [address] [facility] [place] [facility]HER [facility] Advance Directives For more information, please contact: [phone] (9AM - 5PM Estella/[facility], Saturday-Saturday) Documents on File Type Date Recorded Patient Audio Engineer Expl anation Advance Directive - Non Epic LMR 09/13/2011 12:00 AM Care Teams Head Of Geography Relationship Specialty Start Date End Date Marian Alicia MD [address] [place] [address], [address] JUANIS Cameron [address] [email or web address] PCP - General Family Medicine 01/05/22 Macho Vincent DO [address] [place] [address] [email or web address] Primary Oncologist Hematology and Oncology 09/13/21 Camila Nayak FNP [address] [place] [address] [email or web address] Nurse Practitioner Medical Oncology 11/03/21 Mile Reynolds CNP [address] [place] [address] [email or web address] Nurse Practitioner Medical Oncology 11/03/21 Additional Source Comments The information contained in this document represents components of the legal health record. It is not the complete legal health record.[facility]
--- OUTSIDE RECORDS SUMMARY | 2025-07-05 06:04 | XMS_ITS | Encounter Summary ---
Author Organization [facility] Address [address] [facility] [address] [place] [address] Phone Care Team Providers Care Software Test Technician Name Role Phone Demond Roger MD Unavailable [phone] FeltmateTianna MD Unavailable [phone] Yasmeen Ward MD Unavailable [email or web address] Meghna Parson MD Primary Care Provi vipin CarltonMacho gary W DO Unavailable Camila Nayak SUPERVISOR FELLING BUCKING Unavailable [phone] GailTristanen DANCE MASTER Unavailable Marian Alicia MD Primary Care Provider [phone] Encounter Details Date Type Department Care Team (Late st Contact Info) Description 10/04/2021 Transcribe Orders Virtual Department 30 [place] [address] Meghna Parson MD [address] [place], [place] [id number] [email or web address] Low back pain, unspecified back pain laterality, [...] as of this encounter Care Teams Software Test Technician Relationship Specialty Start Date End Date Meghna Parson MD [email or web address] PCP - General Internal Medicine 12/31/20 01/04/22 Marian Alicia MD [address] [place] [address], [address] [place] [address] [email or web address] PCP - General Family Medicine 01/05/22 Demond Roger MD [address] [place] [address] [email or web address] Historical LMR Provider 02/24/15 10/21/21 Tianna Coello MD [address] [place] [address] [email or web address] Historical LMR Provider 02/24/15 10/21/21 Yasmeen Ward MD [email or web address] Historical LMR Provider 02/24/1510/21 Macho Vincent DO [address] [place] [address] [email or web address] Primary Oncologist Hematology and Oncology 09/13/21 Camila Nayak FNP [address] [place] [address] [email or web address] Nurse Practitioner Medical Oncology 11/03/21 Mile Reynolds CNP [address] [place] [address] [email or web address] Nurse Practitioner Medical Oncology 11/03/21 documented as of this encounter Additional Source Comments The information contained in this document represents components of the legal health record. It is not the complete legal health record.[facility]
--- OUTSIDE RECORDS SUMMARY | 2025-07-05 06:04 | XMS_ITS | Encounter Summary ---
Author Organization [facility] Address [address] [facility] [address] [place] [address] Phone Care Team Providers Care Commercial Sheet Metal Foreman Name Role Phone Demond Roger MD Unavailable [phone] FeltmateTianna MD Unavailable [phone] Yasmeen Ward MD Unavailable [email or web address] Meghna Parson MD Primary Care Provi vipin CarltonMacho gary W DO Unavailable [phone] Camila Nayak GYNECOLOGIST Unavailable [phone], Mile REED WORKER Unavailable Marian Alicia MD Primary Care Provider [phone] Encounter Details Date Type Department Care Team (Late st Contact Info) Description 05/18/2021 Ancillary Orders Virtual Department 30 [place] [address] Mehgna Parson MD [address] [place], [place] [phone] [email or web address] Pain and swelling of left lower leg; [...] documented as of this encounter Care Teams Commercial Sheet Metal Foreman Relationship Specialty Start Date End Date Meghna Parson MD PCP - General Internal Medicine 12/31/20 01/04/22 Marian Alicia MD [address] [place] [address], [address] [place] [address] [email or web address] PCP - General Family Medicine 01/05/22 Demond Roger MD [address] [place] [address] [email or web address] Historical LMR Provider 02/24/15 10/21/21 Tianna Coello MD [address] [place] [address] [email or web address] Historical LMR Provider 02/24/15 10/21/21 Yasmeen Ward MD [email or web address] Historical LMR Provider 02/24/1510/21 Macho Vincent DO [address] [place] [address] [email or web address] Primary Oncologist Hematology and Oncology 09/13/21 Camila Nayak FNP [address] [place] [address] [email or web address] Nurse Practitioner Medical Oncology 11/03/21 Mile Reynolds CNP [address] [place] [address] [email or web address] Nurse Practitioner Medical Oncology 11/03/21 documented as of this encounter Additional Source Comments The information contained in this document represents components of the legal health record. It is not the complete legal health record.[facility]
--- OUTSIDE RECORDS SUMMARY | 2025-07-05 06:04 | XMS_ITS | Encounter Summary ---
Author Organization [facility] Address [address] [facility] [address] [place] [address] Phone Care Team Providers Care Supervisor Pit And Auxiliaries Name Role Phone Dell Chiang MD Primary Care Provider [phone] Demond Roger MD Unavailable [phone] FeltTianna ng MD Unavailable [phone] Yasmeen Ward MD Unavailable [email or web address] Meghna Parson MD Primary Care Provi vipin Madalyn Rogers MD Primary Care Provide r Meghna Parson MD Primary Care Provi vipin Macho Vincent W DO Unavailable [phone] Camila Nayak MEDICAL APPOINTMENT SCHEDULER Unavailable Mile Reynolds HABILITATION SPECIALIST Unavailable Marian Alicia MD Primary Care Provider [phone] Encounter Details Date Type Department Care Team (Late st Contact Info) Description 08/03/2017 Ancillary Orders [facility], X-Ray - [address] [address] Meghna Parson MD 6 [place] [address] [email or web address] Breast screening Social History Tobacco Use Types [...] There are scattered fibroglandular densities. POS - [id number] Narrative 09/06/2017 8:52 AM EST Standard digital [...] and compared with multiple prior studies, most tgupzjou61/24/2016, with utilization of computer-aided detection. The breasts are composed of scattered fibroglandular densities. Thestromal markings are essentially unchanged in overall appearance anddistribution. No dominant spiculated mass, suspicious clusteredmicrocalcifications, or focal zone of pathologic skin thickening orretraction are noted to have arisen in the interim. IMPRESSION: No mammographic evidence of malignancy. BI-RADS CATEGORY: 1 - Negative. DENSITY: There are scattered fibroglandular densities. POS - [id number] Meghna Parson MD IMG MG EXAMS Fin [...] as of this encounter Care Teams Supervisor Pit And Auxiliaries Relationship Specialty Start Date End Date Dell Chiang MD [address] [facility] [address] [place] [address] PCP - General 02/18/15 08/18/17 Meghna Parson MD [email or web address] PCP - General Internal Medicine 08/19/17 11/29/19 Madalyn Rogers MD [address] [place] [address] PCP - General 11/30/19 12/30/20 Meghna Parson MD [email or web address] PCP - General Internal Medicine 12/31/20 01/04/22 Marian Alicia MD [address] [place] [address] 7 [place] [address] [email or web address] PCP - General Family Medicine 01/05/22 Demond Roger MD [address] [place] [address] [email or web address] Historical LMR Provider 02/24/15 10/21/21 Tianna Coello MD [address] [place] [address] [email or web address] Historical LMR Provider 02/24/15 10/21/21 Yasmeen Ward MD [email or web address] Historical LMR Provider 02/24/1510/21 Macho Vincent DO [address] [place] [address] [email or web address] Primary Oncologist Hematology and Oncology 09/13/21 Camila Nayak FNP [address] [place] [address] [email or web address] Nurse Practitioner Medical Oncology 11/03/21 Mile Reynolds CNP [address] [place] [address] [email or web address] Nurse Practitioner Medical Oncology 11/03/21 documented as of this encounter Additional Source Comments The information contained in this document represents components of the legal health record. It is not the complete legal health record.[facility]
--- OUTSIDE RECORDS SUMMARY | 2025-07-05 06:04 | XMS_ITS | Encounter Summary ---
Author Organization [facility] Address [address] [place] [address] Care Team Providers Care Glass Etcher Name Role Phone Meghna Parson Primary Care Provider Unava ilable Encounter Details Date Type Department Care Team Description 12/29/2019 Fuel Cell Designer Report Medical Records [address] [place] [address] Satya Mercado Social History Tobacco Use Types Packs/Day Years Used Date Smoking Tobacco: Never Smokeless Tobacco: Never Sex Assigned at Date Recorded Not on file documented as of this encounter Plan of Treatment Not on file documented as of this encounter Visit Diagnoses Not on filedocumented in this encounter Care Teams Glass Etcher Relationship Specialty Start Date End Date Meghna Parson PCP - General Internal Medicine 02/08/17 documented as of this encounter
--- OUTSIDE RECORDS SUMMARY | 2025-07-05 06:04 | XMS_ITS | Encounter Summary ---
Author Organization [facility] Address [address] [place] [address] Phone Care Team Providers Care Mushroom Farmer Name Role Phone Macho Vincent DO Unavailable Camila Nayak REGIONAL ADMINISTRATIVE ASSISTANT Unavailable PackTristanen DIRECTOR OF VIDEO ANALYTICS Unavailable Marian Alicia MD Primary Care Provider [phone] Encounter Details Date Type Department Care Team (Late st Contact Info) Description 08/13/2022 Procedure Pass [address] [address] Social History Tobacco Use Types Packs/Day Years [...] high school, GED, job training, learning the Belarusian language, technical skills, or developing parenting skills)? [...] documented as of this encounter Care Teams Mushroom Farmer Relationship Specialty Start Date End Date Marian Alicia MD [address] [place] [address], [facility] [address] [place], [place] [phone] PCP - General Family Medicine 01/05/22 Macho Vincent DO [address] [place] [address] [email or web address] Primary Oncologist Hematology and Oncology 09/13/21 Camila Nayak FNP [address] [place] [address] [email or web address] Nurse Practitioner Medical Oncology 11/03/21 Mile Reynolds CNP [address] [place] [address] [email or web address] Nurse Practitioner Medical Oncology 11/03/21 documented as of this encounter Additional Source Comments The information contained in this document represents components of the legal health record. It is not the complete legal health record.[facility]
--- OUTSIDE RECORDS SUMMARY | 2025-07-05 06:04 | XMS_ITS | Encounter Summary ---
Author Organization [facility] Address [address] [facility] [address] [place] [address] Phone Care Team Providers Care Lens Polisher Name Role Phone Demond Roger MD Unavailable [phone] FeltmateTianna MD Unavailable [phone] Yasmeen Ward MD Unavailable [email or web address] Meghna Parson MD Primary Care Provi vipin CarltonMacho gary W DO Unavailable Camila Nayak BINDING CEMENTER FRENCH CORD Unavailable [phone], Mile CURRICULUM SPECIALIST Unavailable Marian Alicia MD Primary Care Provider [phone] Encounter Details Date Type Department Care Team (Late st Contact Info) Description 06/13/2021 Transcribe Orders Virtual Department 30 [place] [address] Meghna Parson MD [address] [place], [place] [phone] [email or web address] Post-void dribbling (Primary Dx) Social History Tobacco [...] 2:37 PM EDT Normal bladder ultrasound POS [id number] Narrative 06/27/2021 2:37 PM EDT No comparison [...] (11% residual) IMPRESSION: Normal bladder ultrasound POS [id number] Meghna Parson MD IMG US RENAL Fin [...] documented as of this encounter Care Teams Lens Polisher Relationship Specialty Start Date End Date Meghna Parson MD [email or web address] PCP - General Internal Medicine 12/31/20 01/04/22 Marian Alicia MD [address] [place] [address], [address] [place] [address] [email or web address] PCP - General Family Medicine 01/05/22 Demond Roger MD [address] [place] [address] [email or web address] Historical LMR Provider 02/24/15 10/21/21 Tianna Coello MD [address] [place] [address] [email or web address] Historical LMR Provider 02/24/15 10/21/21 Yasmeen Ward MD [email or web address] Historical LMR Provider 02/24/1510/21 Macho Vincent DO [address] [place] [address] [email or web address] Primary Oncologist Hematology and Oncology 09/13/21 Camila Nayak FNP [address] [place] [address] [email or web address] Nurse Practitioner Medical Oncology 11/03/21 Mile Reynolds CNP [address] [place] [address] Nurse Practitioner Medical Oncology 11/03/21 documented as of this encounter Additional Source Comments The information contained in this document represents components of the legal health record. It is not the complete legal health record.[facility]
--- OUTSIDE RECORDS SUMMARY | 2025-07-05 06:04 | XMS_ITS | Encounter Summary ---
Author Organization [facility] Address [address] [facility] [address] [place] [address] Phone Care Team Providers Care Time Clerk Name Role Phone Demond Roger MD Unavailable [phone] FeltmateTianna MD Unavailable [phone] Yasmeen Ward MD Unavailable [email or web address] Meghna Parson MD Primary Care Provi vipin CarltonMacho gary W DO Unavailable [phone] Camila Nayak PET CARE ASSOCIATE Unavailable [phone], Mile CLEANING VALIDATION CONSULTANT Unavailable Marian Alicia MD Primary Care Provider [phone] Encounter Details Date Type Department Care Team (Late st Contact Info) Description 08/25/2021 Procedure Pass [facility] [address] [place], [place] [id number] Social History Tobacco Use Types Packs/Day Years [...] documented as of this encounter Care Teams Time Clerk Relationship Specialty Start Date End Date Meghna Parson MD [email or web address] PCP - General Internal Medicine 12/31/20 01/04/22 Marian Alicia MD [address] [place] [address] [email or web address] PCP - General Family Medicine 01/05/22 Demond Roger MD [address] [place] [address] [email or web address] Historical LMR Provider 02/24/15 10/21/21 Tianna Coello MD [address] [place] [address] [email or web address] Historical LMR Provider 02/24/15 10/21/21 Yasemen Ward MD [email or web address] Historical LMR Provider 02/24/1510/21 Macho Vincent DO [address] [place] [address] [email or web address] Primary Oncologist Hematology and Oncology 09/13/21 Camila Nayak FNP [address] [place] [address] [email or web address] Nurse Practitioner Medical Oncology 11/03/21 Mile Reynolds CNP [address] [place] [address] [email or web address] Nurse Practitioner Medical Oncology 11/03/21 documented as of this encounter Additional Source Comments The information contained in this document represents components of the legal health record. It is not the complete legal health record.[facility]
--- OUTSIDE RECORDS SUMMARY | 2025-07-05 06:04 | XMS_ITS | Encounter Summary ---
Author Organization [facility] Address [address] [facility] [address] [place] [address] Phone Care Team Providers Care Event Planning Manager Name Role Phone Demond Roger MD Unavailable [phone] FeltTianna ng MD Unavailable [phone] Yasmeen Ward MD Unavailable [email or web address] Meghna Parson MD Primary Care Provi vipin Madalyn Rogers MD Primary Care Provide r Meghna Parson MD Primary Care Provi vipin Macho Vincent DO Unavailable [phone] Camila Nayak LINE ASSEMBLER AIRCRAFT Unavailable Mile Reynolds REHAB TECH Unavailable Marian Alicia MD Primary Care Provider [phone] Encounter Details Date Type Department Care Team (Late st Contact Info) Description 02/13/2018 Transcribe Orders [facility] Laboratory [address] [place] [address] Meghna Parson MD [address] [place], [place] [id number] [email or web address] Fatigue, unspecified type (Primary Dx) Social History [...] VITAMIN B12 410 232 - 1,245 pg/mL [facility] Comment:The reference range had been changed on January 24, 2018 from 243 - 894pg/mL to 232 - 1245 pg/mL. Blood 02/13/2018 10:0 8 AM EDT 02/13/2018 10:14 AM EDT us Meghna Parson MD LAB BLOOD ORDERABLE S Final Result [address] [address] * Iron and iron binding capacity (02/13/2018 10:08 AM EDT) IRON 70 30 - 160 ug/dL [facility] IRON BINDING CAPACITY 229 228 - 428 ug/dL [facility] TRANSFERRIN SATURAT. 31 15 - 50 % [facility] Blood 02/13/2018 10:0 8 AM EDT 02/13/2018 10:14 AM EDT us Meghna Parson MD LAB BLOOD ORDERABLE S Final Result Performing Organization Address City/[facility]/ZIP Co de Phone Number [address] [address] * (ABNORMAL) Ferritin (02/13/2018 10:08 AM EDT) FERRITIN 154(H) 13 - 150 ug/L [facility] Blood 02/13/2018 10:0 8 AM EDT 02/13/2018 10:14 AM EDT Meghna Parson MD LAB BLOOD ORDERABLE S Final Result Performing Organization Address City/[facility]/ZIP Co de Phone Number [address] [address] * CPK (creatine kinase) (02/13/2018 10:08 AM EDT) CREATINE KINASE 173 21 - 215 U/L [facility] Blood 02/13/2018 10:0 8 AM EDT 02/13/2018 10:14 AM EDT Meghna Parson MD LAB BLOOD ORDERABLE S Final Result Performing Organization Address [facility] Co de Phone Number [address] [address] * TSH with reflex (02/13/2018 10:08 AM EDT) TSH 1.69 0.27 - 4.20 uIU/mL [facility] Blood 02/13/2018 10:0 8 AM EDT 02/13/2018 10:14 AM EDT Meghna Parson MD LAB BLOOD ORDERABLE S Final Result Performing Organization Address City/[facility] Co de Phone Number [address] [address] * CBC and differential (02/13/2018 10:08 AM EDT) WBC 7.06 3.40 - 11.20 K/uL [facility] RBC 4.79 3.80 - 4.80 M/uL [facility] HGB 14.2 12.0 - 15.0 g/dL [facility] HCT 43.5 36.0 - 46.0 % [facility] PLT 262 130 - 400 K/uL [facility] MCV 90.8 79.0 - 98.0 fL [facility] MCH 29.6 27.0 - 34.8 pg [facility] MCHC 32.6 31.5 - 36.0 g/dL [facility] RDW 12.8 10.8 - 14.6 % [facility] MPV 9.8 9.4 - 12.4 fl [facility] NRBC 0.00 /100 WBCs [facility] ABSOLUTE NRBC 0.00 K/uL [facility] DIFF METHOD Auto [facility] NEUTS 55.8 45.30 - 77.70 % [facility] LYMPHS 32.7 12.30 - 39.70 % [facility] MONOS 8.4 4.10 - 12.80 % [facility] EOS 2.1 0 - 7.2 % [facility] BASOS 0.4 0 - 2.80 % [facility] Granulocytes, immature (%) 0.6 0.0 - 0.9 % [facility] ABSOLUTE NEUTS 3.94 1.40 - 7.70 K/uL [facility] ABSOLUTE LYMPHS 2.31 0.60 - 3.20 K/uL [facility] ABSOLUTE MONOS 0.59 0.11 - 0.59 K/uL [facility] ABSOLUTE EOS 0.15 0.01 - 0.50 K/uL [facility] ABSOLUTE BASOS 0.03 0.00 - 0.08 K/uL [facility] Granulocytes, immature 0.04 0.00 - 0.05 K/uL [facility] Blood 02/13/2018 10:0 8 AM EDT 02/13/2018 10:14 AM EDT us Meghna Parson MD LAB BLOOD ORDERABLE S Final Result [facility] [address] [place] [address] * (ABNORMAL) Comprehensive metabolic panel (02/13/2018 10:08 AM EDT) Pathologist [facility] SODIUM 146 133 - 146 mmol/L [facility] POTASSIUM 4.2 3.3 - 5.1 mmol/L [facility] CHLORIDE 106 96 - 108 mmol/L [facility] CO2 27 21 - 35 mmol/L [facility] BUN 17 6 - 19 mg/dL [facility] CREATININE 1.00 0.5 - 1.5 mg/dL [facility] GLUCOSE 69(L) 70 - 99 mg/dL [facility] ALBUMIN 3.9 3.9 - 4.8 g/dL [facility] TOTAL PROTEIN 6.4(L) 6.5 - 8.0 g/dL [facility] CALCIUM 9.3 8.4 - 10.3 mg/dL [facility] ALKALINE PHOSPHATASE 77 39 - 117 U/L [facility] TOTAL BILIRUBIN 0.3 0.0 - 1.2 mg/dL [facility] AST 21 0 - 37 U/L [facility] ALT 13 0 - 40 U/L [facility] GLOBULIN 2.5 1 - 4.8 g/dL [facility] EGFR 65 >59 mL/min/1.7 3m2 [facility] Comment:If patient is black, multiply result by 1.159. The eGFR calculation has changed from the MDRD equation to the CKD-EPI equation as of December 17, 2017. ANION GAP 17 10 - 20 mmol/L [facility] Blood 02/13/2018 10:0 8 AM EDT 02/13/2018 10:14 AM EDT us Meghna Parson MD LAB BLOOD ORDERABLE S Final Result [address] [address] documented in this encounter Visit Diagnoses Diagnosis Fatigue, unspecified type- Primary documented in this encounter Additional Health Concerns Infection Onset Date Last Indicated Resolved Time CoV-Exposed Comment:Recent close contact documented in the COVID-19 PCR/PRO order 09/25/2021 10/03/2021 10/10/2021 1:[address] CoV-Presumed 10/09/2022 10/09/2022 10/30/2022 1:21 AM EST CoV-Risk 03/01/2023 03/01/2023 03/12/2023 1:22 AM EDT documented as of this encounter Care Teams Event Planning Manager Relationship Specialty Start Date End Date Meghna Parson MD [email or web address] PCP - General Internal Medicine 08/19/17 11/29/19 Madalyn Rogers MD [address] [place] [address] PCP - General 11/30/19 12/30/20 Meghna Parson MD [email or web address] PCP - General Internal Medicine 12/31/20 01/04/22 Marian Alicia MD [address] [place] [address] [email or web address] PCP - General Family Medicine 01/05/22 Demond Roger MD [address] [place] [address] [email or web address] Historical LMR Provider 02/24/15 10/21/21 Tianna Coello MD [address] [place] [address] [email or web address] Historical LMR Provider 02/24/15 10/21/21 Yasmeen Ward MD [email or web address] Historical LMR Provider 02/24/1510/21 Macho Vincent DO [address] [place] [address] [email or web address] Primary Oncologist Hematology and Oncology 09/13/21 Camila Nayak FNP [address] [place] [address] [email or web address] Nurse Practitioner Medical Oncology 11/03/21 Mile Reynolds CNP [address] [place] [address] [email or web address] Nurse Practitioner Medical Oncology 11/03/21 documented as of this encounter Additional Source Comments The information contained in this document represents components of the legal health record. It is not the complete legal health record.[facility]
--- OUTSIDE RECORDS SUMMARY | 2025-07-05 06:04 | XMS_ITS | Encounter Summary ---
Author Organization [facility], Address [address] [place] [address] Phone Care Team Providers Care Screen Printing Supervisor Name Role Phone Aretha Bain WEB DESIGNER DEVELOPER Primary Care Provider [phone] Encounter Details Date Type Department Care Team (Late st Contact Info) Description 08/12/2023 Documentation Only [facility] [employer] [facility] [address] [place] [phone] Marian Alicia MD [address] [place] [address] 7 [place] [address] Social History Tobacco Use Types Packs/Day Years [...] Visit [facility], [address] [phone] Jamison Avila MD [address] [place] [phone] documented as of this encounter Visit Diagnoses Not on filedocumented in this encounter Care Teams Screen Printing Supervisor Relationship Specialty Start Date End Date Aretha Bain NP [address] [facility] 1 [place] [address] PCP - General Nurse Practitioner 04/12/25 documented as of this encounter
--- OUTSIDE RECORDS SUMMARY | 2025-07-05 06:04 | XMS_ITS | Encounter Summary ---
Author Organization [facility] Address [address] [employer] [address] [address] Phone Care Team Providers Care Manager Of Drilling Name Role Phone Meghna Parson MD Primary Care Provi vipin Macho Vincent W DO Unavailable [phone] Camila Nayak PUBLIC TRANSIT TROLLEY DRIVER Unavailable [phone] FORENSIC SCIENCE TECHNICIAN Unavailable Marian Alicia MD Primary Care Provider [phone] Encounter Details Date Type Department Care Team (Late st Contact Info) Description 11/07/2021 Ancillary Orders [facility],Outside Imaging [address] [place], [place] [phone] System, Provider [place] In, [place] [address] Social History Tobacco Use Types Packs/Day Years [...] documented as of this encounter Care Teams Manager Of Drilling Relationship Specialty Start Date End Date Meghna Parson MD [email or web address] PCP - General Internal Medicine 12/31/20 01/04/22 Marian Alicia MD [address] [place] [address], [address] [place] [address] [email or web address] PCP - General Family Medicine 01/05/22 Macho Vincent DO [address] [place] [address] [email or web address] Primary Oncologist Hematology and Oncology 09/13/21 Camila Nayak FNP [address] [place] [address] [email or web address] Nurse Practitioner Medical Oncology 11/03/21 Mile Reynolds CNP [address] [place] [address] Nurse Practitioner Medical Oncology 11/03/21 documented as of this encounter Additional Source Comments The information contained in this document represents components of the legal health record. It is not the complete legal health record.[facility]
--- OUTSIDE RECORDS SUMMARY | 2025-07-05 06:04 | XMS_ITS | Encounter Summary ---
Author Organization [facility] Address [address] [facility] [address] [place] [address] Phone Care Team Providers Care Ship Cleaner Name Role Phone Demond Roger MD Unavailable [phone] FeltTianna ng MD Unavailable [phone] Yasmeen Ward MD Unavailable [email or web address] Meghna Parson MD Primary Care Provi vipin Madalyn Rogers MD Primary Care Provide r Meghna Parson MD Primary Care Provi vipin Macho Vincent DO Unavailable [phone] Camila Nayak LECTURER IN COMPUTER SCIENCE Unavailable [phone] OCEAN BIOLOGIST Unavailable Marian Alicia MD Primary Care Provider [phone] Encounter Details Date Type Department Care Team (Latest Contact Info) Description 03/04/2018 Transcribe Orders [facility] Laboratory 30 [place] [address] SabasLondon MD [address] [facility] [address] [place], [place] [phone] [email or web address] Dyspnea, unspecified type (Primary Dx) Social History [...] AM EDT) D-DIMER <215 <500 ng/mL [facility] Comment:In patients with low to moderate pre-test probability scores for VTE (PE or DVT), a D-Dimer cut-off less than 500 ng/mL ([facility]) has a negative predictive value (NPV) of 97 to 100%. Blood 03/04/2018 11:3 1 AM EDT 03/04/2018 11:33 AM EDT London Obregon MD LAB BLOOD ORDERABLES Final Resu lt Performing Organization Address City/State/[facility] Co de Phone Number [address] [address] documented in this encounter Visit Diagnoses Diagnosis Dyspnea, unspecified type- Primary documented in this encounter Additional Health Concerns Infection Onset Date Last Indicated Resolved Time CoV-Exposed Comment:Recent close contact documented in the COVID-19 PCR/PRO order 09/25/2021 10/03/2021 10/10/2021 1:[address] CoV-Presumed 10/09/2022 10/09/2022 10/30/2022 1:21 AM EST CoV-Risk 03/01/2023 03/01/2023 03/12/2023 1:22 AM EDT documented as of this encounter Care Teams Ship Cleaner Relationship Specialty Start Date End Date Meghna Parson MD [email or web address] PCP - General Internal Medicine 08/19/17 11/29/19 Madalyn Rogers MD [address] [place] [address] PCP - General 11/30/19 12/30/20 Meghna Parson MD [email or web address] PCP - General Internal Medicine 12/31/20 01/04/22 Marian Alicia MD [address] [place] [address] [email or web address] PCP - General Family Medicine 01/05/22 Demond Roger MD [address] [place] [address] [email or web address] Historical LMR Provider 02/24/15 10/21/21 Tianna Coello MD [address] [place] [address] [email or web address] Historical LMR Provider 02/24/15 10/21/21 Yasmeen Ward MD [email or web address] Historical LMR Provider 02/24/1510/21 Macho Vincent DO [address] [place] [address] [email or web address] Primary Oncologist Hematology and Oncology 09/13/21 Camila Nayak FNP [address] [place] [address] [email or web address] Nurse Practitioner Medical Oncology 11/03/21 Mile Reynolds CNP [address] [place] [address] [email or web address] Nurse Practitioner Medical Oncology 11/03/21 documented as of this encounter Additional Source Comments The information contained in this document represents components of the legal health record. It is not the complete legal health record.[facility]
--- OUTSIDE RECORDS SUMMARY | 2025-07-05 06:04 | XMS_ITS | Encounter Summary ---
Author Organization [facility] Address [address] [facility] [address] [place] [address] Phone Care Team Providers Care Audit Officer Name Role Phone Demond Roger MD Unavailable [phone] FeltmateTianna MD Unavailable [phone] Yasmeen Ward MD Unavailable [email or web address] Meghna Parson MD Primary Care Provi vipin CarltonMacho gary W DO Unavailable Camila Nayak ROCK BREAKER Unavailable GailTristanen CUSTOMER RELATIONSHIP SPECIALIST Unavailable Marian Alicia MD Primary Care Provider [phone] Encounter Details Date Type Department Care Team (Late st Contact Info) Description 10/10/2021 Ancillary Orders Virtual Department [address] [place] [address] Meghna Parson MD [address] [place], [place] [phone] [email or web address] Low back pain, unspecified back pain laterality, [...] documented as of this encounter Care Teams Audit Officer Relationship Specialty Start Date End Date Meghna Parson MD [email or web address] PCP - General Internal Medicine 12/31/20 01/04/22 Marian Alicia MD [address] [place] [address] 7 [place] [address] [email or web address] PCP - General Family Medicine 01/05/22 Demond Roger MD [address] [place] [address] [email or web address] Historical LMR Provider 02/24/15 10/21/21 Tianna Coello MD [address] [place] [address] [email or web address] Historical LMR Provider 02/24/15 10/21/21 Yasmeen Ward MD [email or web address] Historical LMR Provider 02/24/1510/21 Macho Vincent DO [address] [place] [address] [email or web address] Primary Oncologist Hematology and Oncology 09/13/21 Camila Nayak FNP [address] [place] [address] [email or web address] Nurse Practitioner Medical Oncology 11/03/21 Mile Reynolds CNP [address] [place] [address] [email or web address] Nurse Practitioner Medical Oncology 11/03/21 documented as of this encounter Additional Source Comments The information contained in this document represents components of the legal health record. It is not the complete legal health record.[facility]
--- OUTSIDE RECORDS SUMMARY | 2025-07-05 06:04 | XMS_ITS | Encounter Summary ---
Author Organization [facility], Address [address] [place] [address] Phone Care Team Providers Care Medical Typist Name Role Phone Aretha Bain GRADUATE ASSISTANT ATHLETIC TRAINER Primary Care Provider [phone] Encounter Details Date Type Department Care Team (Late st Contact Info) Description 08/12/2023 Documentation Only [facility] [address] [place] [phone] Marian Alicia MD [address] [place] [address] 7 [place] [address] Social History Tobacco Use Types Packs/Day Years [...] Visit [facility], [address] [place] [phone] Jamison Avila MD [address] [facility] [place] [phone] documented as of this encounter Visit Diagnoses Not on filedocumented in this encounter Care Teams Medical Typist Relationship Specialty Start Date End Date Aretha Bain NP [address] [facility] 1 [place] [address] PCP - General Nurse Practitioner 04/12/25 documented as of this encounter
--- OUTSIDE RECORDS SUMMARY | 2025-07-05 06:04 | XMS_ITS | Encounter Summary ---
Author Organization [facility] Address [address] [place] [address] Phone Care Team Providers Care Internet Specialist Name Role Phone Macho Vincent DO Unavailable Camila Nayak COLOR SEPARATION PHOTOGRAPHER Unavailable PackTristanen DIRECTOR OF OPERATIONS SUPPORT Unavailable Marian Alicia MD Primary Care Provider [phone] Encounter Details Date Type Department Care Team (Late st Contact Info) Description 03/01/2023 Procedure [facility], Ct Scan - [address] [address] Social History Tobacco Use Types Packs/Day Years [...] 3:51 PM EDT Yanick Gonzales, ZOEY * Camp Suicide Severity Rating Scale (Screener/Recent Self-Report) Question [...] documented as of this encounter Care Teams Internet Specialist Relationship Specialty Start Date End Date Marian Alicia MD [address] [place] [address], [address] [place] [address] [email or web address] PCP - General Family Medicine 01/05/22 Macho Vincent DO [address] [place] [address] [email or web address] Primary Oncologist Hematology and Oncology 09/13/21 Camila Nayak FNP [address] [place] [address] [email or web address] Nurse Practitioner Medical Oncology 11/03/21 Mile Reynolds CNP [address] [place] [address] [email or web address] Nurse Practitioner Medical Oncology 11/03/21 documented as of this encounter Additional Source Comments The information contained in this document represents components of the legal health record. It is not the complete legal health record.[facility]
--- OUTSIDE RECORDS SUMMARY | 2025-07-05 06:04 | XMS_ITS | Encounter Summary ---
Author Organization [facility] Address [address] [employer] [address] [address] Phone Care Team Providers Care Gaming Manager Name Role Phone Meghna Parson MD Primary Care Provi vipin Macho Vincent W DO Unavailable [phone] Camila Nayak HEALTH UNDERWRITER Unavailable [phone], Mile HEAD OPERATOR Unavailable Marian Alicia MD Primary Care Provider [phone] Encounter Details Date Type Department Care Team (Late st Contact Info) Description 11/07/2021 Ancillary Orders [facility],Outside Imaging [address] [place], [place] [phone] System, Provider Not In, [place] [address] Social History Tobacco Use Types Packs/Day Years [...] documented as of this encounter Care Teams Gaming Manager Relationship Specialty Start Date End Date Meghna Parson MD [email or web address] PCP - General Internal Medicine 12/31/20 01/04/22 Marian Alicia MD [address] [place] [address], [address] [place] [address] [email or web address] PCP - General Family Medicine 01/05/22 Macho Vincent DO [address] [place] [address] [email or web address] U Primary Oncologist Hematology and Oncology 09/13/21 Camila Nayak FNP [address] [place] [address] [email or web address] Nurse Practitioner Medical Oncology 11/03/21 Mile Reynolds CNP [address] [place] [address] Nurse Practitioner Medical Oncology 11/03/21 documented as of this encounter Additional Source Comments The information contained in this document represents components of the legal health record. It is not the complete legal health record.[facility]
--- OUTSIDE RECORDS SUMMARY | 2025-07-05 06:04 | XMS_ITS | Clinical Summary ---
Author Organization [facility] Address [address] [place] [address] Phone Care Team Providers Care Agricultural Sciences Professor Name Role Phone Aretha Bain NP Primary Care Provider [phone] Family History Medical History Relation Name Comments [...] of Phone Billing Address Personal/Family Self 1965 [phone] (Work) [address] [place] [place] [address] [place] - [place] Care Teams Agricultural Sciences Professor Relationship Specialty Start Date End Date Aretha Bain NP [address] [place] [phone] PCP - General Nurse Practitioner 03/02/25
--- OUTSIDE RECORDS SUMMARY | 2025-07-05 06:04 | XMS_ITS | Encounter Summary ---
Author Organization [facility] Address [address] [facility] [address] [place] [address] Phone Care Team Providers Care Director Of Medical Review Name Role Phone Demond Roger MD Unavailable [phone] FeltTianna ng MD Unavailable [phone] Yasmeen Ward MD Unavailable [email or web address] Meghna Parson MD Primary Care Provi vipin Madalyn Rogers MD Primary Care Provide r Meghna Parson MD Primary Care Provi vipin Macho Vincent DO Unavailable [phone] Camila Nayak KETTLE CHIPPER Unavailable Mile Reynolds MAINSTREAMING FACILITATOR Unavailable Marian Alicia MD Primary Care Provider [phone] Encounter Details Date Type Department Care Team (Late st Contact Info) Description 09/18/2019 Ancillary Orders [facility], X-Ray - [address] [address] Georgie Olsen MD [address] [place] [phone] [email or web address] Pneumonia due to infectious [...] of this encounter Care Teams Director Of Medical Review Relationship Specialty Start Date End Date Meghna Parson MD [email or web address] PCP - General Internal Medicine 08/19/17 11/29/19 Madalyn Rogers MD [address] [place] [address] PCP - General 11/30/19 12/30/20 Meghna Parson MD [email or web address] PCP - General Internal Medicine 12/31/20 01/04/22 Marian Alicia MD [address] [place] [address] 7 [place] [address] [email or web address] PCP - General Family Medicine 01/05/22 Demond Roger MD [address] [place] [address] [email or web address] Historical LMR Provider 02/24/15 10/21/21 Tianna Coello MD [address] [place] [address] [email or web address] Historical LMR Provider 02/24/15 10/21/21 Yasmeen Ward MD [email or web address] Historical LMR Provider 02/24/1510/21 Macho Vincent DO [address] [place] [address] [email or web address] Primary Oncologist Hematology and Oncology 09/13/21 Camila Nayak FNP [address] [place] [address] [email or web address] Nurse Practitioner Medical Oncology 11/03/21 Mile Reynolds CNP [address] [place] [address] [email or web address] Nurse Practitioner Medical Oncology 11/03/21 documented as of this encounter Additional Source Comments The information contained in this document represents components of the legal health record. It is not the complete legal health record.[facility]
--- OUTSIDE RECORDS SUMMARY | 2025-07-05 06:04 | XMS_ITS | Encounter Summary ---
Author Organization [facility] Address [address] [address] Phone Care Team Providers Care Fluorescent Lamp Replacer Name Role Phone Meghna Parson MD Primary Care Provi vipin Macho Vincent W DO Unavailable [phone] Camila Nayak LASER OPERATOR Unavailable [phone] [address], Mile BURNISHER Unavailable Marian Alicia MD Primary Care Provider [phone] Encounter Details Date Type Department Care Team (Late st Contact Info) Description 11/07/2021 Ancillary Orders [facility],Outside Imaging 30 [place], [place] [id number] System, Provider [place] In, [place] [address] Social History Tobacco Use Types Packs/Day Years [...] Start Date End Date Meghna Parson MD [email or web address] PCP - General Internal Medicine 12/31/20 01/04/22 Marian Alicia MD [address] [place] [address], [address] [place] [address] [email or web address] PCP - General Family Medicine 01/05/22 Macho Vincent DO [address] [place] [address] [email or web address] U Primary Oncologist Hematology and Oncology 09/13/21 Camila Nayak FNP [address] [place] [address] [email or web address] Nurse Practitioner Medical Oncology 11/03/21 Mile Reynolds CNP [address] [place] [address] Nurse Practitioner Medical Oncology 11/03/21 documented as of this encounter Additional Source Comments The information contained in this document represents components of the legal health record. It is not the complete legal health record.[facility]
--- OUTSIDE RECORDS SUMMARY | 2025-07-05 06:04 | XMS_ITS | Encounter Summary ---
Author Organization [facility] Address [address] [facility] [address] [place] [address] Phone Care Team Providers Care Elevator Constructor Electric Name Role Phone Demond Roger MD Unavailable [phone] FeltTianna ng MD Unavailable [phone] Yasmeen Ward MD Unavailable [email or web address] Meghna Parson MD Primary Care Provi vipin Madalyn Rogers MD Primary Care Provide r Meghna Parson MD Primary Care Provi vipin Macho Vincent DO Unavailable [phone] Camila Nayak PROPERTY CARETAKER Unavailable Mile Reynolds DEMAND PLANNING MANAGER Unavailable Marian Alicia MD Primary Care Provider [phone] Encounter Details Date Type Department Care Team (Late st Contact Info) Description 11/12/2019 Ancillary Orders Virtual Department 30 [place] [address] Meghna Parson MD [address] [place], [place] [id number] [email or web address] goiter Social History Tobacco Use Types [...] aspiration recommended per ACR TI-RADS. POS - [id number] Narrative 11/30/2019 2:44 PM EST THYROID ULTRASOUND [...] aspiration recommended per ACR TI-RADS. POS - [id number] us Meghna Parson MD IMG US THYROID [...] documented as of this encounter Care Teams Elevator Constructor Electric Relationship Specialty Start Date End Date Meghna Parson MD [email or web address] PCP - General Internal Medicine 08/19/17 11/29/19 Madalyn Rogers MD [address] [place] [address] PCP - General 11/30/19 12/30/20 Meghna Parson MD [email or web address] PCP - General Internal Medicine 12/31/20 01/04/22 Marian Alicia MD [address] [place] [address], [address] [place] [address] [email or web address] PCP - General Family Medicine 01/05/22 Demond Roger MD [address] [place] [address] [email or web address] Historical LMR Provider 02/24/15 10/21/21 Tianna Coello MD [address] [place] [address] [email or web address] Historical LMR Provider 02/24/15 10/21/21 Yasmeen Ward MD [email or web address] Historical LMR Provider 02/24/1510/21 Macho Vincent DO [address] [place] [address] [email or web address]. [facility] Primary Oncologist Hematology and Oncology 09/13/21 Camila Nayak FNP [address] [place] [address] [email or web address] Nurse Practitioner Medical Oncology 11/03/21 Mile Reynolds CNP [address] [place] [address] [email or web address] Nurse Practitioner Medical Oncology 11/03/21 documented as of this encounter Additional Source Comments The information contained in this document represents components of the legal health record. It is not the complete legal health record.[facility]
--- OUTSIDE RECORDS SUMMARY | 2025-07-05 06:04 | XMS_ITS | Encounter Summary ---
Author Organization [facility] Address [address] [address] Phone Care Team Providers Care Equine Intern Name Role Phone Meghna Parson MD Primary Care Provi vipin Macho Vincent W DO Unavailable [phone] Camila Nayak POOL CLEANER Unavailable Pack Mile MUSHROOM PICKER Unavailable Marian Alicia MD Primary Care Provider [phone] Encounter Details Date Type Department Care Team (Late st Contact Info) Description 11/07/2021 Ancillary Orders [facility],Outside Imaging 30 [place], [place] [phone] System, Provider [place] In, [place] [address] Social History Tobacco Use Types Packs/Day Years [...] documented as of this encounter Care Teams Equine Intern Relationship Specialty Start Date End Date Meghna Parson MD [email or web address] PCP - General Internal Medicine 12/31/20 01/04/22 Marian Alicia MD [address] [place] [address], [address] [place] [address] [email or web address] PCP - General Family Medicine 01/05/22 Macho Vincent DO [address] [place] [address] [email or web address] U Primary Oncologist Hematology and Oncology 09/13/21 Camila Nayak FNP [address] [place] [address] [email or web address] Nurse Practitioner Medical Oncology 11/03/21 Mile Reynolds CNP [address] [place] [address] Nurse Practitioner Medical Oncology 11/03/21 documented as of this encounter Additional Source Comments The information contained in this document represents components of the legal health record. It is not the complete legal health record.[facility]
--- OUTSIDE RECORDS SUMMARY | 2025-07-05 06:04 | XMS_ITS | Encounter Summary ---
Author Organization [facility] Address [address] [address] Phone Care Team Providers Care Automation Analyst Name Role Phone Meghna Parson MD Primary Care Provi vipin Macho Vincent W DO Unavailable Camila Nayak EVENT OPERATIONS MANAGER Unavailable [phone], Mile PUBLIC HEALTH ADVISOR Unavailable Marian Alicia MD Primary Care Provider [phone] Encounter Details Date Type Department Care Team (Late st Contact Info) Description 11/07/2021 Ancillary Orders [facility],Outside Imaging 30 [place], [place] [id number] System, Provider [place] In, [place] [address] Social History Tobacco Use Types Packs/Day Years [...] documented as of this encounter Care Teams Automation Analyst Relationship Specialty Start Date End Date Meghna Parson MD [email or web address] PCP - General Internal Medicine 12/31/20 01/04/22 Marian Alicia MD [address] [place] [address], [address] [place] [address] [email or web address] PCP - General Family Medicine 01/05/22 Macho Vincent DO [address] [place] [address] [email or web address] U Primary Oncologist Hematology and Oncology 09/13/21 Camila Nayak FNP [address] [place] [address] [email or web address] Nurse Practitioner Medical Oncology 11/03/21 Mile Reynolds CNP [address] [place] [address] Nurse Practitioner Medical Oncology 11/03/21 documented as of this encounter Additional Source Comments The information contained in this document represents components of the legal health record. It is not the complete legal health record.[facility]
--- OUTSIDE RECORDS SUMMARY | 2025-07-05 06:04 | XMS_ITS | Encounter Summary ---
Author Organization [facility] Address [address] [facility] [address] [place] [address] Phone Care Team Providers Care Actuarial Science Teacher Name Role Phone Dell Chiang MD Primary Care Provider [phone] Demond Roger MD Unavailable [phone] FeltTianna ng MD Unavailable [phone] Yasmeen Ward MD Unavailable [email or web address] Meghna Parson MD Primary Care Provi vipin Madalyn Rogers MD Primary Care Provide r Meghna Parson MD Primary Care Provi vipin Macho Vincent W DO Unavailable Camila Nayak [employer] ROUTEMAN Unavailable Mile Reynolds ASSOCIATE SCHOOL PSYCHOLOGIST Unavailable Marian Alicia MD Primary Care Provider [phone] Encounter Details Date Type Department Care Team (Late st Contact Info) Description 08/04/2017 Ancillary Orders [address] [address] Meghna Parson MD 6 [place] [address] [email or web address] Cystic thyroid nodule Social History Tobacco Use [...] documented as of this encounter Care Teams Actuarial Science Teacher Relationship Specialty Start Date End Date Dell Chiang MD [address] [facility] [address] [place] [address] PCP - General 02/18/15 08/18/17 Meghna Parson MD [email or web address] PCP - General Internal Medicine 08/19/17 11/29/19 Madalyn Rogers MD [address] [place] [address] PCP - General 11/30/19 12/30/20 Meghna Parson MD [email or web address] PCP - General Internal Medicine 12/31/20 01/04/22 Marian Alicia MD [address] [place] [address] 7 [place] [address] [email or web address] PCP - General Family Medicine 01/05/22 Demond Roger MD [address] [place] [address] [email or web address] Historical LMR Provider 02/24/15 10/21/21 Tianna Coello MD [address] [place] [address] [email or web address] Historical LMR Provider 02/24/15 10/21/21 Yasmeen Ward MD [email or web address] Historical LMR Provider 02/24/1510/21 Macho Vincent DO 30 [place] [address] [email or web address] Primary Oncologist Hematology and Oncology 09/13/21 Camila Nayak FNP 30 [place] [address] [email or web address] Nurse Practitioner Medical Oncology 11/03/21 Mile Reynolds CNP [address] [place] [address] [email or web address] Nurse Practitioner Medical Oncology 11/03/21 documented as of this encounter Additional Source Comments The information contained in this document represents components of the legal health record. It is not the complete legal health record.[facility]
--- OUTSIDE RECORDS SUMMARY | 2025-07-05 06:04 | XMS_ITS | Encounter Summary ---
Author Organization [facility] Address [address] [facility] [address] [place] [address] Phone Care Team Providers Care Phone Banker Name Role Phone Demond Roger MD Unavailable [phone] FeltTianna ng MD Unavailable [phone] Yasmeen Ward MD Unavailable [email or web address] Meghna Parson MD Primary Care Provi vipin Madalyn Rogers MD Primary Care Provide r Meghna Parson MD Primary Care Provi vipin Macho Vincent DO Unavailable Camila Nayak FERMENTATION ENGINEER Unavailable [phone] Mile Reynolds GAMING ASSOCIATE Unavailable Marian Alicia MD Primary Care Provider [phone] Encounter Details Date Type Department Care Team (Late st Contact Info) Description 10/24/2017 Transcribe Orders [facility] 30 [place] [address] Bairon Aparicio MD, [place] [address] [id number] [email or web address] Social History Tobacco Use Types Packs/Day Years [...] documented as of this encounter Care Teams Phone Banker Relationship Specialty Start Date End Date Meghna Parson MD [email or web address] PCP - General Internal Medicine 08/19/17 11/29/19 Madalyn Rogers MD [address] [place] [address] PCP - General 11/30/19 12/30/20 Meghna Parson MD [email or web address] PCP - General Internal Medicine 12/31/20 01/04/22 Marian Alicia MD [address] [place] [address], [address] [place] [address] [email or web address] PCP - General Family Medicine 01/05/22 Demond Roger MD [address] [place] [address] [email or web address] Historical LMR Provider 02/24/15 10/21/21 Tianna Coello MD [address] [place] [address] [email or web address] Historical LMR Provider 02/24/15 10/21/21 Yasmeen Ward MD [email or web address] Historical LMR Provider 02/24/1510/21 Macho Vincent DO [address] [place] [address] [email or web address] Primary Oncologist Hematology and Oncology 09/13/21 Camila Nayak FNP [address] [place] [address] [email or web address] Nurse Practitioner Medical Oncology 11/03/21 Mile Reynolds CNP [address] [place] [address] [email or web address] Nurse Practitioner Medical Oncology 11/03/21 documented as of this encounter Additional Source Comments The information contained in this document represents components of the legal health record. It is not the complete legal health record.[facility]
--- OUTSIDE RECORDS SUMMARY | 2025-07-05 06:04 | XMS_ITS | Encounter Summary ---
Author Organization [facility] Address [address] [employer] [address] [address] Phone Care Team Providers Care French Folder Name Role Phone Meghna Parson MD Primary Care Provi vipin Macho Vincent W DO Unavailable [phone] Camila Nayak CAFE AIDE Unavailable [phone] Mile BOTTOM BRUSHER Unavailable Marian Alicia MD Primary Care Provider [phone] Encounter Details Date Type Department Care Team (Late st Contact Info) Description 11/07/2021 Ancillary Orders [facility],Outside Imaging 30 [place], [place] [id number] System, Provider Not In, [place] [address] Social History Tobacco Use Types Packs/Day Years [...] documented as of this encounter Care Teams French Folder Relationship Specialty Start Date End Date Meghna Parson MD [email or web address] PCP - General Internal Medicine 12/31/20 01/04/22 Marian Alicia MD [address] [place] [address], [address] [place] [address] [email or web address] PCP - General Family Medicine 01/05/22 Macho Vincent DO [address] [place] [address] [email or web address] U Primary Oncologist Hematology and Oncology 09/13/21 Camila Nayak FNP [address] [place] [address] [email or web address] Nurse Practitioner Medical Oncology 11/03/21 Mile Reynolds CNP [address] [place] [address] Nurse Practitioner Medical Oncology 11/03/21 documented as of this encounter Additional Source Comments The information contained in this document represents components of the legal health record. It is not the complete legal health record.[facility]
--- OUTSIDE RECORDS SUMMARY | 2025-07-05 06:04 | XMS_ITS | Encounter Summary ---
Author Organization [facility] Address [address] [facility] [address] [place] [address] Phone Care Team Providers Care Genetic Counselor Name Role Phone Demond Roger MD Unavailable [phone] FeltTianna ng MD Unavailable [phone] Yasmeen Ward MD Unavailable [email or web address] Meghna Parson MD Primary Care Provi vipin Madalyn Rogers MD Primary Care Provide r Meghna Parson MD Primary Care Provi vipin Macho Vincent DO Unavailable Camila Nayak CARTOGRAPHIC DESIGNER Unavailable Mile Reynolds OFFICE MOVER Unavailable Marian Alicia MD Primary Care Provider [phone] Encounter Details Date Type Department Care Team (Late st Contact Info) Description 11/12/2017 Ancillary Orders Virtual Department 30 [place] [address] Meghna Parson MD [address] [place], [place] [phone] [email or web address] Social History Tobacco Use Types Packs/Day Years [...] documented as of this encounter Care Teams Genetic Counselor Relationship Specialty Start Date End Date Meghna Parson MD [email or web address] PCP - General Internal Medicine 08/19/17 11/29/19 Madalyn Rogers MD [address] [place] [address] PCP - General 11/30/19 12/30/20 Meghna Parson MD [email or web address] PCP - General Internal Medicine 12/31/20 01/04/22 Marian Alicia MD [address] [place] [address], [address] [place] [address] PCP - General Family Medicine 01/05/22 Demond Roger MD [address] [place] [address] [email or web address] Historical LMR Provider 02/24/15 10/21/21 Tianna Coello MD [address] [place] [address] [email or web address] Historical LMR Provider 02/24/15 10/21/21 Yasmeen Ward MD [email or web address] Historical LMR Provider 02/24/1510/21 Macho Vincent DO [address] [place] [address] [email or web address] Primary Oncologist Hematology and Oncology 09/13/21 Camila Nayak FNP [address] [place] [address] [email or web address] Nurse Practitioner Medical Oncology 11/03/21 Mile Reynolds CNP [address] [place] [address] [email or web address] Nurse Practitioner Medical Oncology 11/03/21 documented as of this encounter Additional Source Comments The information contained in this document represents components of the legal health record. It is not the complete legal health record.[facility]
--- OUTSIDE RECORDS SUMMARY | 2025-07-05 06:04 | XMS_ITS | Encounter Summary ---
Author Organization [facility] Address [address] [facility] [address] [place] [address] Phone Care Team Providers Care Coil Cleaner Name Role Phone Dell Chiang MD Primary Care Provider [phone] Demond Roger MD Unavailable [phone] FeltTianna ng MD Unavailable [phone] Yasmeen Ward MD Unavailable [email or web address] Meghna Parson MD Primary Care Provi vipin Madalyn Rogers MD Primary Care Provide r Meghna Parson MD Primary Care Provi vipin Macho Vincent W DO Unavailable [phone] Camila Nayak BUFF WHEEL FABRICATOR Unavailable Mile Reynolds INSULATION SPRAYER Unavailable Marian Alicia MD Primary Care Provider [phone] Encounter Details Date Type Department Care Team (Late st Contact Info) Description 08/04/2017 Ancillary Orders [address] [address] Meghna Parson MD 6 [place] [address] [email or web address] Social History Tobacco Use Types Packs/Day Years [...] documented as of this encounter Care Teams Coil Cleaner Relationship Specialty Start Date End Date Dell Chiang MD [address] [facility] [address] [place] [address] PCP - General 02/18/15 08/18/17 Meghna Parson MD [email or web address] PCP - General Internal Medicine 08/19/17 11/29/19 Madalyn Rogers MD [address] [place] [address] PCP - General 11/30/19 12/30/20 Meghna Parson MD [email or web address] PCP - General Internal Medicine 12/31/20 01/04/22 Marian Alicia MD [address] [place] [address], [address] [place] [address] [email or web address] PCP - General Family Medicine 01/05/22 Demond Roger MD [address] [place] [address] [email or web address] Historical LMR Provider 02/24/15 10/21/21 Tianna Coello MD [address] [place] [address] [email or web address] Historical LMR Provider 02/24/15 10/21/21 Yasmeen Ward MD [email or web address] Historical LMR Provider 02/24/1510/21 Macho Vincent DO [address] [place] [address] [email or web address] Primary Oncologist Hematology and Oncology 09/13/21 Camila Nayak FNP [address] [place] [address] [email or web address] Nurse Practitioner Medical Oncology 11/03/21 Mile Reynolds CNP [address] [place] [address] [email or web address] Nurse Practitioner Medical Oncology 11/03/21 documented as of this encounter Additional Source Comments The information contained in this document represents components of the legal health record. It is not the complete legal health record.[facility]
--- OUTSIDE RECORDS SUMMARY | 2025-07-05 06:04 | XMS_ITS | Encounter Summary ---
Author Organization [facility] Address [address] [employer] [facility] [address] [place] [address] Phone Care Team Providers Care Career Coordinator Name Role Phone Demond Roger MD Unavailable [phone] FeltmateTianna MD Unavailable [phone] Yasmeen Ward MD Unavailable [email or web address] Meghna Parson MD Primary Care Provi vipin CarltonMacho gary W DO Unavailable [phone] Camila Nayak PAINTER PLATE Unavailable [phone] Gail, Mile TREAD BUILDER Unavailable Marian Alicia MD Primary Care Provider [phone] Encounter Details Date Type Department Care Team (Late st Contact Info) Description 05/22/2021 Ancillary Orders [facility], X-Ray - [address] [address] Sabas, [place] Verde MD [address] [facility] [address] [place], [place] [id number] [email or web address] Erythema Social History Tobacco Use Types Packs/Day [...] documented as of this encounter Care Teams Career Coordinator Relationship Specialty Start Date End Date Meghna Parson MD [email or web address] PCP - General Internal Medicine 12/31/20 01/04/22 Marian Alicia MD [address] [place] [address] 7 [place] [address] [email or web address] PCP - General Family Medicine 01/05/22 Demond Roger MD [address] [place] [address] [email or web address] Historical LMR Provider 02/24/15 10/21/21 Tianna Coello MD [address] [place] [address] [email or web address] Historical LMR Provider 02/24/15 10/21/21 Yasmeen Ward MD [email or web address] Historical LMR Provider 02/24/1510/21 Macho Vincent DO [address] [place] [address] [email or web address] [facility] Primary Oncologist Hematology and Oncology 09/13/21 Camila Nayak FNP [address] [place] [address] [email or web address] Nurse Practitioner Medical Oncology 11/03/21 Mile Reynolds CNP [address] [place], [place] [address] [email or web address] Nurse Practitioner Medical Oncology 11/03/21 documented as of this encounter Additional Source Comments The information contained in this document represents components of the legal health record. It is not the complete legal health record.[facility]
--- OUTSIDE RECORDS SUMMARY | 2025-07-05 06:04 | XMS_ITS | Encounter Summary ---
Author Organization [facility] Address [address] [facility] [address] [place] [address] Phone Care Team Providers Care Splicing Machine Operator Automatic Name Role Phone Demond Roger MD Unavailable [phone] FeltTianna ng MD Unavailable [phone] Yasmeen Ward MD Unavailable [email or web address] Meghna Parson MD Primary Care Provi vipin Madalyn Rogers MD Primary Care Provide r Meghna Parson MD Primary Care Provi vipin Macho Vincent DO Unavailable Camila Nayak GEOGRAPHY PROFESSOR Unavailable Mile Reynolds COMMODITIES BROKER Unavailable Marian Alicia MD Primary Care Provider [phone] Encounter Details Date Type Department Care Team (Late st Contact Info) Description 03/03/2018 Ancillary Orders [facility], X-Ray - [address] [address] SabasLondon MD [address] [facility] [address] [place], [place] [id number] [email or web address] Dyspnea, unspecified type Social History Tobacco [...] documented as of this encounter Care Teams Splicing Machine Operator Automatic Relationship Specialty Start Date End Date Meghna Parson MD [email or web address] PCP - General Internal Medicine 08/19/17 11/29/19 Madalyn Rogers MD [address] [place] [address] PCP - General 11/30/19 12/30/20 Meghna Parson MD [email or web address] PCP - General Internal Medicine 12/31/20 01/04/22 Marian Alicia MD [address] [place] [address] 7 [place] [address] [email or web address] PCP - General Family Medicine 01/05/22 Demond Roger MD [address] [place] [address] [email or web address] Historical LMR Provider 02/24/15 10/21/21 Tianna Coello MD [address] [place] [address] [email or web address] Historical LMR Provider 02/24/15 10/21/21 Yasmeen Ward MD [email or web address] Historical LMR Provider 02/24/1510/21 Macho Vincent DO [address] [place] [address] [email or web address] Primary Oncologist Hematology and Oncology 09/13/21 Camila Nayak FNP [address] [place] [address] [email or web address] Nurse Practitioner Medical Oncology 11/03/21 Mile Reynolds CNP [address] [place] [address] [email or web address] Nurse Practitioner Medical Oncology 11/03/21 documented as of this encounter Additional Source Comments The information contained in this document represents components of the legal health record. It is not the complete legal health record.[facility]
--- OUTSIDE RECORDS SUMMARY | 2025-07-05 06:04 | XMS_ITS | Encounter Summary ---
Author Organization [facility] Address [address] [facility] [address] [place] [address] Phone Care Team Providers Care Concrete Engineering Technician Name Role Phone Dell Chiang MD Primary Care Provider [phone] Demond Roger MD Unavailable [phone] FeltTianna ng MD Unavailable [phone] Yasmeen Ward MD Unavailable [email or web address] Meghna Parson MD Primary Care Provi vipin Madalyn Rogers MD Primary Care Provide r Meghna Parson MD Primary Care Provi vipin Macho Vincent DO Unavailable Camila Nayak PHARMACEUTICAL SALES Unavailable Mile Reynolds ALLIGATOR TRAPPER Unavailable Marian Alicia MD Primary Care Provider [phone] Encounter Details Date Type Department Care Team (Late st Contact Info) Description 08/05/2017 Transcribe Orders [facility] [address] [place] [address] Steven Trinidad DO [address] [facility], [address] [place] [address] [phone] (work) [email or web address] Severe persistent asthma, unspecified whether complicated (Primary [...] documented as of this encounter Care Teams Concrete Engineering Technician Relationship Specialty Start Date End Date Dell Chiang MD [address] [facility] [address] [place] [address] PCP - General 02/18/15 08/18/17 Meghna Parson MD [email or web address] PCP - General Internal Medicine 08/19/17 11/29/19 Madalyn Rogers MD [address] [place] [address] PCP - General 11/30/19 12/30/20 Meghna Parson MD [email or web address] PCP - General Internal Medicine 12/31/20 01/04/22 Marian Alicia MD [address] [place] [address], [address] [place] [address] [email or web address] PCP - General Family Medicine 01/05/22 Demond Roger MD [address] [place] [address] [email or web address] Historical LMR Provider 02/24/15 10/21/21 Tianna Coello MD [address] [place] [address] [email or web address] Historical LMR Provider 02/24/15 10/21/21 Yasmeen Ward MD [email or web address] Historical LMR Provider 02/24/1510/21 Macho Vincent DO [address] [place] [address] [email or web address] Primary Oncologist Hematology and Oncology 09/13/21 Camila Nayak FNP [address] [place] [address] [email or web address] Nurse Practitioner Medical Oncology 11/03/21 Mile Reynolds CNP [address] [place] [address] [email or web address] Nurse Practitioner Medical Oncology 11/03/21 documented as of this encounter Additional Source Comments The information contained in this document represents components of the legal health record. It is not the complete legal health record.[facility]
--- OUTSIDE RECORDS SUMMARY | 2025-07-05 06:04 | XMS_ITS | Encounter Summary ---
Author Organization [facility] Address [address] [facility] [address] [place] [address] Phone Care Team Providers Care Occupational Therapy Professor Name Role Phone Demond Roger MD Unavailable [phone] FeltTianna ng MD Unavailable [phone] Yasmeen Ward MD Unavailable [email or web address] Meghna Parson MD Primary Care Provi vipin Madalyn Rogers MD Primary Care Provide r Meghna Parson MD Primary Care Provi vipin Macho Vincent DO Unavailable Camila Nayak HOUSEKEEPING AND LAUNDRY TEAM LEADER Unavailable Mile Reynolds INSURANCE SERVICE REPRESENTATIVE Unavailable Marian Alicia MD Primary Care Provider [phone] Encounter Details Date Type Department Care Team (Late st Contact Info) Description 08/23/2017 Transcribe Orders [facility] Laboratory 30 [place] [address] Meghna Parson MD [address] [place], [place] [id number] [email or web address] Muscle pain (Primary Dx); Leg cramps; Polyuria [...] EST) PHOSPHORUS 2.3(L) 2.7 - 4.5 mg/dL [facility] Blood 08/23/2017 12:3 2 PM EST 08/23/2017 12:36 PM EST us Meghna Parson MD LAB BLOOD ORDERABLE S Final Result Performing Organization Address [facility]/ZIP Co de Phone Number [address] [address] * Magnesium (08/23/2017 12:32 PM EST) MAGNESIUM 1.8 1.6 - 2.6 mg/dL [facility] Blood 08/23/2017 12:3 2 PM EST 08/23/2017 12:36 PM EST us Meghna Parson MD LAB BLOOD ORDERABLE S Final Result Performing Organization Address [facility] Co de Phone Number [address] [address] * Urine culture (08/23/2017 12:32 PM EST) Specimen Source/ Description URINE CLEAN CATCH URINE URINE [facility] Special Requests None [facility] GRAM STAIN NO ORGANISMS SEEN [facility] Culture/Test 10,000 to 100,000 colony forming units per ml MIXED HAYLEE (3 OR MORE COLONY TYPES) Culture indicates contamination . Please resubmit if necessary. [facility] Report Status 08/25/2017 FINAL [facility] Urine (Urine) 08/23/2017 12: 32 PM EST 08/23/2017 12:37 PM EST Meghna Parson MD MICROBIOLOGY - GENE RAL ORDERABLES Final Result Performing Organization Address [facility] Co de Phone Number [address] [address] * (ABNORMAL) Urinalysis (08/23/2017 12:32 PM EST) COLOR STRAW(A) Yellow [facility] CLARITY Clear [facility] GLUCOSE Negative Negative [facility] BILI Negative Negative [facility] KETONES Negative Negative [facility] SPECIFIC GRAVITY <1.005 1.005 - 1.030 [facility] BLOOD Negative Negative [facility] PH 5.5 5.0 - 8.0 [facility] Protein-UA Negative Negative [facility] NITRITE Negative Negative [facility] Leukocyte esterase, ur Negative Negative [facility] Urine (Urine) 08/23/2017 12: 32 PM EST 08/23/2017 12:36 PM EST us Meghna Parson MD URINE ORDERABLES Fi nal Result Performing Organization Address City/[facility]/ZIP Co de Phone Number [address] [address] * Hemoglobin A1c (08/23/2017 12:32 PM EST) HEMOGLOBIN A1C 4.9 4.3 - 5.8 % [facility] Blood 08/23/2017 12:3 2 PM EST 08/23/2017 12:36 PM EST us Meghna Parson MD LAB BLOOD ORDERABLE S Final Result Performing Organization Address City/[facility]/ZIP Co de Phone Number [address] [address] * (ABNORMAL) CPK (creatine kinase) (08/23/2017 12:32 PM EST) CREATINE KINASE 483(H) 21 - 215 U/L [facility] Blood 08/23/2017 12:3 2 PM EST 08/23/2017 12:36 PM EST us Meghna Parson MD LAB BLOOD ORDERABLE S Final Result Performing Organization Address [facility]/ZIP Co de Phone Number [address] [address] * (ABNORMAL) CBC and differential (08/23/2017 12:32 PM EST) WBC 9.50 3.40 - 11.20 K/uL [facility] RBC 4.88(H) 3.80 - 4.80 M/uL [facility] HGB 14.6 12.0 - 15.0 g/dL [facility] HCT 43.7 36.0 - 46.0 % [facility] PLT 281 130 - 400 K/uL [facility] MCV 89.5 79.0 - 98.0 fL [facility] MCH 29.9 27.0 - 34.8 pg [facility] MCHC 33.4 31.5 - 36.0 g/dL [facility] RDW 12.8 10.8 - 14.6 % [facility] MPV 9.9 9.4 - 12.4 fl [facility] NRBC 0.00 /100 WBCs [facility] ABSOLUTE NRBC 0.00 K/uL [facility] DIFF METHOD Auto [facility] NEUTS 64.0 45.30 - 77.70 % [facility] LYMPHS 25.2 12.30 - 39.70 % [facility] MONOS 8.1 4.10 - 12.80 % [facility] EOS 1.6 0 - 7.2 % [facility] BASOS 0.4 0 - 2.80 % [facility] Granulocytes, immature (%) 0.7 0.0 - 0.9 % [facility] ABSOLUTE NEUTS 6.08 1.40 - 7.70 K/uL [facility] ABSOLUTE LYMPHS 2.39 0.60 - 3.20 K/uL [facility] ABSOLUTE MONOS 0.77(H) 0.11 - 0.59 K/uL [facility] ABSOLUTE EOS 0.15 0.01 - 0.50 K/uL [facility] ABSOLUTE BASOS 0.04 0.00 - 0.08 K/uL [facility] Granulocytes, immature 0.07(H) 0.00 - 0.05 K/uL [facility] Blood 08/23/2017 12:3 2 PM EST 08/23/2017 12:36 PM EST us Meghna Parson MD LAB BLOOD ORDERABLE S Final Result [address] [address] * TSH with reflex (08/23/2017 12:32 PM EST) TSH 1.44 0.27 - 4.20 uIU/mL [facility] Blood 08/23/2017 12:3 2 PM EST 08/23/2017 12:36 PM EST us Meghna Parson MD LAB BLOOD ORDERABLE S Edited Result - Final [facility] [address] [place] [address] * (ABNORMAL) Comprehensive metabolic panel (08/23/2017 12:32 PM EST) SODIUM 142 133 - 146 mmol/L [facility] POTASSIUM 3.7 3.3 - 5.1 mmol/L [facility] CHLORIDE 103 96 - 108 mmol/L [facility] CO2 28 21 - 35 mmol/L [facility] BUN 20(H) 6 - 19 mg/dL [facility] CREATININE 0.80 0.5 - 1.5 mg/dL [facility] GLUCOSE 67(L) 70 - 99 mg/dL [facility] ALBUMIN 4.3 3.9 - 4.8 g/dL [facility] TOTAL PROTEIN 6.5 6.5 - 8.0 g/dL [facility] CALCIUM 9.6 8.4 - 10.3 mg/dL [facility] ALKALINE PHOSPHATASE 73 39 - 117 U/L [facility] TOTAL BILIRUBIN 0.2 0 - 1.2 mg/dL [facility] AST 25 0 - 37 U/L [facility] ALT 13 0 - 40 U/L [facility] GLOBULIN 2.2 1 - 4.8 g/dL [facility] EGFR >60 >60 mL/min/1.7 3m2 [facility] Comment:Abnormal if <60. If patient is -Cypriot, multiply the result by 1.21. ANION GAP 15 10 - 20 mmol/L [facility] Blood 08/23/2017 12:3 2 PM EST 08/23/2017 12:36 PM EST us Meghna Parson MD LAB BLOOD ORDERABLE S Final Result [facility] [address] [place] [address] documented in this encounter Visit Diagnoses Diagnosis [...] documented as of this encounter Care Teams Occupational Therapy Professor Relationship Specialty Start Date End Date Meghna Parson MD [email or web address] PCP - General Internal Medicine 08/19/17 11/29/19 Madalyn Rogers MD [address] [place] [address] PCP - General 11/30/19 12/30/20 Meghna Parson MD [email or web address] PCP - General Internal Medicine 12/31/20 01/04/22 Marian Alicia MD [address] [place] [address] 7 [place] [address] [email or web address] PCP - General Family Medicine 01/05/22 Demond Roger MD [address] [place] [address] [email or web address] Historical LMR Provider 02/24/15 10/21/21 Tianna Coello MD [address] [place] [address] [email or web address] Historical LMR Provider 02/24/15 10/21/21 Yasmeen Ward MD [email or web address] Historical LMR Provider 02/24/1510/21 Macho Vincent DO [address] [place] [address] [email or web address] Primary Oncologist Hematology and Oncology 09/13/21 Camila Nayak FNP [address] [place] [address] [email or web address] Nurse Practitioner Medical Oncology 11/03/21 Mile Reynolds CNP [address] [place] [address] [email or web address] Nurse Practitioner Medical Oncology 11/03/21 documented as of this encounter Additional Source Comments The information contained in this document represents components of the legal health record. It is not the complete legal health record.[facility]
--- OUTSIDE RECORDS SUMMARY | 2025-07-05 06:04 | XMS_ITS | Encounter Summary ---
Author Organization [facility] Address [address] [facility] [address] [place] [address] Phone Care Team Providers Care Sports Marketing Internship Name Role Phone Demond Roger MD Unavailable [phone] FeltTianna ng MD Unavailable [phone] Yasmeen Ward MD Unavailable [email or web address] Meghna Parson MD Primary Care Provi vipin Madalyn Rogers MD Primary Care Provide r Meghna Parson MD Primary Care Provi vipin Macho iVncent DO Unavailable [phone] Camila Nayak MIND READER Unavailable Mile Reynolds CABINET AND TRIM INSTALLER Unavailable Marian Alicia MD Primary Care Provider [phone] Encounter Details Date Type Department Care Team (Late st Contact Info) Description 11/12/2019 Transcribe Orders Virtual Department [address] [place] [address] Meghna Parson MD [address] [place], [place] [phone] [email or web address] Dysuria (Primary Dx) Social History Tobacco Use [...] Special Requests None 11/12/2019 6:01 PM EST [facility] GRAM STAIN NO ORGANISMS SEEN 11/13/2019 9:06 AM EST [facility] Urine Culture 10,000 to 100,000 colony forming units per mL MIXED HAYLEE (3 OR MORE COLONY TYPES) Culture indicates contamination . Please resubmit if necessary.(A) 11/14/2019 10:46 AM EST [facility] Urine (Urine) 11/12/2019 4:3 0 PM EST 11/12/2019 6:00 PM EST us Meghna Parson MD MICROBIOLOGY - GENE [facility] ORDERABLES Final Result [address] [address] * (ABNORMAL) URINALYSIS WITH SEDIMENT (11/12/2019 4:30 PM EST) WBC 0-4(A) NONE SEEN /hpf [facility] RBC NONE SEEN NONE SEEN /hpf [facility] URINE EPITHELIAL 0-4(A) NONE SEEN [facility] MUCUS Trace(A) NONE SEEN /hpf [facility] BACTERIA NONE SEEN NONE SEEN /hpf [facility] COLOR Yellow Yellow [facility] CLARITY Clear [facility] GLUCOSE Negative Negative [facility] BILI Negative Negative [facility] KETONES Negative Negative [facility] SPECIFIC GRAVITY 1.015 1.005 - 1.030 [facility] BLOOD Negative Negative [facility] PH 5.5 5.0 - 8.0 [facility] Protein-UA Negative Negative [facility] NITRITE Negative Negative [facility] Leukocyte esterase, ur Negative Negative [facility] Urine (Urine) 11/12/2019 4:3 0 PM EST 11/12/2019 6:09 PM EST us Meghna Parson MD URINE ORDERABLES Fi nal Result [facility] [address] [place] [address] documented in this encounter Visit Diagnoses Diagnosis Dysuria- Primary documented in this encounter Additional Health Concerns Infection Onset Date Last Indicated Resolved Time CoV-Exposed Comment:Recent close contact documented in the COVID-19 PCR/PRO order 09/25/2021 10/03/2021 10/10/2021 1:[address] CoV-Presumed 10/09/2022 10/09/2022 10/30/2022 1:21 AM EST CoV-Risk 03/01/2023 03/01/2023 03/12/2023 1:22 AM EDT documented as of this encounter Care Teams Sports Marketing Internship Relationship Specialty Start Date End Date Meghna Parson MD [email or web address] PCP - General Internal Medicine 08/19/17 11/29/19 Madalyn Rogers MD [address] [place] [address] PCP - General 11/30/19 12/30/20 Meghna Parson MD [email or web address] PCP - General Internal Medicine 12/31/20 01/04/22 Marian Alicia MD [address] [place] [address], [address] [place] [address] [email or web address] PCP - General Family Medicine 01/05/22 Demond Roger MD [address] [place] [address] [email or web address] Historical LMR Provider 02/24/15 10/21/21 Tianna Coello MD [address] [place] [address] [email or web address] Historical LMR Provider 02/24/15 10/21/21 Yasmeen Ward MD [email or web address] Historical LMR Provider 02/24/1510/21 Macho Vincent DO [address] [place] [address] [email or web address] Primary Oncologist Hematology and Oncology 09/13/21 Camila Nayak FNP [address] [place] [address] [email or web address] Nurse Practitioner Medical Oncology 11/03/21 Mile Reynolds CNP [address] [place] [address] [email or web address] Nurse Practitioner Medical Oncology 11/03/21 documented as of this encounter Additional Source Comments The information contained in this document represents components of the legal health record. It is not the complete legal health record[facility]
--- OUTSIDE RECORDS SUMMARY | 2025-07-05 06:04 | XMS_ITS | Encounter Summary ---
Author Organization [facility] Address [address] [facility] [address] [place] [address] Phone Care Team Providers Care Medical Oncology Physician Name Role Phone Dell Chiang MD Primary Care Provider [phone] Demond Roger MD Unavailable [phone] FeltTianna ng MD Unavailable [phone] Yasmeen Ward MD Unavailable [email or web address] Meghna Parson MD Primary Care Provi vipin Madalyn Rogers MD Primary Care Provide r Meghna Parson MD Primary Care Provi vipin Macho Vincent W DO Unavailable [phone] Camila Nayak LEAD APPLICATION ARCHITECT Unavailable [phone] SENIOR CARE SPECIALIST Unavailable Marian Alicia MD Primary Care Provider [phone] Encounter Details Date Type Department Care Team (Late st Contact Info) Description 08/13/2017 Ancillary Orders [facility] Department 30 [place] [address] Meghna Parson MD [address] [place], [place] [address] [phone] [email or web address] Chest discomfort Social History Tobacco Use Types [...] pharynx on clinical exam. COMPARISON: None FINDINGS: Sammying Machine Operator AP view of the abdomen shows a [...] pharynx on clinical exam. COMPARISON: None FINDINGS: Sammying Machine Operator AP view of the abdomen shows a [...] as of this encounter Care Teams Medical Oncology Physician Relationship Specialty Start Date End Date Dell Chiang MD [address] [place] [address] PCP - General 02/18/15 08/18/17 Meghna Parson MD [email or web address] PCP - General Internal Medicine 08/19/17 11/29/19 Madalyn Rogers MD [address] [place] [address] PCP - General 11/30/19 12/30/20 Meghna Parson MD [email or web address] PCP - General Internal Medicine 12/31/20 01/04/22 Marian Alicia MD [address] [place] [address] 7 [place] [address] [email or web address] PCP - General Family Medicine 01/05/22 Demond Roger MD [address] [place] [address] [email or web address] Historical LMR Provider 02/24/15 10/21/21 Tianna Coello MD [address] [place] [address] [email or web address] Historical LMR Provider 02/24/15 10/21/21 Yasmeen Ward MD [email or web address] Historical LMR Provider 02/24/1510/21 Macho Vincent DO 30 [place] [address] [email or web address]. [facility] Primary Oncologist Hematology and Oncology 09/13/21 Camila Nayak FNP 30 [place] [address] [email or web address] Nurse Practitioner Medical Oncology 11/03/21 Mile Reynolds CNP [address] [place], [place] [address] [email or web address] Nurse Practitioner Medical Oncology 11/03/21 documented as of this encounter Additional Source Comments The information contained in this document represents components of the legal health record. It is not the complete legal health record.[facility]
--- OUTSIDE RECORDS SUMMARY | 2025-07-05 06:04 | XMS_ITS | Encounter Summary ---
Author Organization [facility] Address [address] [facility] [address] [place] [address] Phone Care Team Providers Care Bill Checker Name Role Phone Mahco Vincent DO Unavailable [phone] Camila Nayak FACILITIES SPECIALIST Unavailable [employer] AUTO WRECKER Unavailable Marian Alicia MD Primary Care Provider [phone] Reason for Visit * Reason Onset Date Comments Appointment 06/03/2025 Encounter Details Date Type Department Care Team (Late st Contact Info) Description 06/03/2025 Telephone [facility] [address] [place], [place] [id number] Unknown, Unknown, Appointment Social History Tobacco Use [...] with the weight loss dept. Central Support Qa Tester (Please do not reply to this user; this inbox is not monitored.) Thank you. documented in this encounter Plan of Treatment Not on file documented as of this encounter Visit Diagnoses Not on filedocumented in this encounter Additional Health Concerns Assessment Noted Time PHQ-2 Depression Total Score: 1 01/24/20 23 4:10 PM EDT documented as of this encounter Care Teams Bill Checker Relationship Specialty Start Date End Date Marian Alicia MD [address] [place] [address], [address] [place] [address] [email or web address] PCP - General Family Medicine 01/05/22 Macho Vincent DO [address] [place] [address] [email or web address] Primary Oncologist Hematology and Oncology 09/13/21 Camila Nayak FNP [address] [place] [address] Nurse Practitioner Medical Oncology 11/03/21 Mile Reynolds CNP [address] [place] [address] Nurse Practitioner Medical Oncology 11/03/21 documented as of this encounter Additional Source Comments The information contained in this document represents components of the legal health record. It is not the complete legal health record.[facility]
--- OUTSIDE RECORDS SUMMARY | 2025-07-05 06:04 | XMS_ITS | Encounter Summary ---
Author Organization [facility] Address [address] [facility] [address] [place] [address] Phone Care Team Providers Care Management Architect Name Role Phone Dell Chiang MD Primary Care Provider [phone] Demond Roger MD Unavailable [phone] FeltTianna ng MD Unavailable [phone] Yasmeen Ward MD Unavailable [email or web address] Meghna Parson MD Primary Care Provi vipin Madalyn Rogers MD Primary Care Provide r Meghna Parson MD Primary Care Provi vipin Macho Vincent W DO Unavailable Camila Nayak TYPE PROOF REPRODUCER Unavailable Mile Reynolds WALLPAPERER HELPER Unavailable Marian Alicia MD Primary Care Provider [phone] Encounter Details Date Type Department Care Team (Late st Contact Info) Description 08/04/2017 Ancillary Orders [address] [address] Meghna Parson MD 6 [place] [address] [email or web address] Social History Tobacco Use Types Packs/Day Years [...] documented as of this encounter Care Teams Management Architect Relationship Specialty Start Date End Date Dell Chiang MD [address] [facility] [address] [place] [address] PCP - General 02/18/15 08/18/17 Meghna Parson MD [email or web address] PCP - General Internal Medicine 08/19/17 11/29/19 Madalyn Rogers MD [address] [place] [address] PCP - General 11/30/19 12/30/20 Meghna Parson MD [email or web address] PCP - General Internal Medicine 12/31/20 01/04/22 Marian Alicia MD [address] [place] [address], [address] [place] [address] [email or web address] PCP - General Family Medicine 01/05/22 Demond Roger MD [address] [place] [address] [email or web address] Historical LMR Provider 02/24/15 10/21/21 Tianna Coello MD [address] [place] [address] [email or web address] Historical LMR Provider 02/24/15 10/21/21 Yasmeen Ward MD [email or web address] Historical LMR Provider 02/24/1510/21 Macho Vincent DO [address] [place] [address] [email or web address] Primary Oncologist Hematology and Oncology 09/13/21 Camila Nayak FNP [address] [place] [address] [email or web address] Nurse Practitioner Medical Oncology 11/03/21 Mile Reynolds CNP [address] [place] [address] [email or web address] Nurse Practitioner Medical Oncology 11/03/21 documented as of this encounter Additional Source Comments The information contained in this document represents components of the legal health record. It is not the complete legal health record.[facility]
--- OUTSIDE RECORDS SUMMARY | 2025-07-05 06:04 | XMS_ITS | Encounter Summary ---
Author Organization [facility] Address [address] [facility] [address] [place] [address] Phone Care Team Providers Care Die Cast Technician Name Role Phone Demond Roger MD Unavailable [phone] FeltTianna ng MD Unavailable [phone] Yasmeen Ward MD Unavailable [email or web address] Meghna Parson MD Primary Care Provi vipin Madalyn Rogers MD Primary Care Provide r Meghna Parson MD Primary Care Provi vipin Macho Vincent DO Unavailable [phone] Camila Nayak RECEIVING SUPERVISOR Unavailable [phone] BILL OF LADING CLERK Unavailable Marian Alicia MD Primary Care Provider [phone] Encounter Details Date Type Department Care Team (Late st Contact Info) Description 08/31/2019 Ancillary Orders Virtual Department 30 [place] [address] Meghna Parson MD [address]36 [place], [place] [phone] [email or web address] Breast screening Social History Tobacco Use [...] documented as of this encounter Care Teams Die Cast Technician Relationship Specialty Start Date End Date Meghna Parson MD [email or web address] PCP - General Internal Medicine 08/19/17 11/29/19 Madalyn Rogers MD [address] [place] [address] PCP - General 11/30/19 12/30/20 Meghna Parson MD [email or web address] PCP - General Internal Medicine 12/31/20 01/04/22 Marian Alicia MD [address] [place] [address] 7 [place] [address] [email or web address] PCP - General Family Medicine 01/05/22 Demond Roger MD [address] [place] [address] [email or web address] Historical LMR Provider 02/24/15 10/21/21 Tianna Coello MD [address] [place] [address] [email or web address] Historical LMR Provider 02/24/15 10/21/21 Yasmeen Ward MD [email or web address] Historical LMR Provider 02/24/1510/21 Macho Vincent DO [address] [place] [address] [email or web address] Primary Oncologist Hematology and Oncology 09/13/21 Camila Nayak FNP [address] [place] [address] [email or web address] Nurse Practitioner Medical Oncology 11/03/21 Mile Reynolds CNP [address] [place] [address] [email or web address] Nurse Practitioner Medical Oncology 11/03/21 documented as of this encounter Additional Source Comments The information contained in this document represents components of the legal health record. It is not the complete legal health record.[facility]
--- OUTSIDE RECORDS SUMMARY | 2025-07-05 06:04 | XMS_ITS | Encounter Summary ---
Author Organization [facility] Address [address] [facility] [address] [place] [address] Phone Care Team Providers Care Oven Worker Name Role Phone Demond Roger MD Unavailable [phone] FeltmateTianna MD Unavailable [phone] Yasmeen Ward MD Unavailable [email or web address] Meghna Parson MD Primary Care Provi vipin CarltonMacho gary W DO Unavailable [phone] Camila Nayak RAILROAD POLICE OFFICER Unavailable GailTristanen BOWLING ALLEY MANAGER Unavailable Marian Alicia MD Primary Care Provider [phone] Encounter Details Date Type Department Care Team (Late st Contact Info) Description 05/18/2021 Transcribe Orders Virtual Department 30 [place] [address] Meghna Parson MD 7[address] [place], [place] [phone] [email or web address] Cellulitis, unspecified cellulitis site (Primary Dx); Pain [...] documented as of this encounter Care Teams Oven Worker Relationship Specialty Start Date End Date Meghna Parson MD [email or web address] PCP - General Internal Medicine 12/31/20 01/04/22 Marian Alicia MD [address] [place] [address], [address] [place] [address] [email or web address] PCP - General Family Medicine 01/05/22 Demond Roger MD [address] [place] [address] [email or web address] Historical LMR Provider 02/24/15 10/21/21 Tianna Coello MD [address] [place] [address] [email or web address] Historical LMR Provider 02/24/15 10/21/21 Yasmeen Ward MD [email or web address] Historical LMR Provider 02/24/1510/21 Macho Vincent DO [address] [place] [address] [email or web address] Primary Oncologist Hematology and Oncology 09/13/21 Camila Nayak FNP [address] [place] [address] [email or web address] Nurse Practitioner Medical Oncology 11/03/21 Mile Reynolds CNP [address] [place] [address] [email or web address] Nurse Practitioner Medical Oncology 11/03/21 documented as of this encounter Additional Source Comments The information contained in this document represents components of the legal health record. It is not the complete legal health record.[facility]
[2025-07-05 07:39] LABS: INTERNATIONAL NORM RATIO 1.2 (0.9-1.1); Prothrombin Time 14.3 SEC (10.9-12.4)
[2025-07-05 07:42] LABS: Partial Thromboplastin Time 38.1 SEC (26.7-34.1)
== END 2025-07-05 06:01 | disposition home or self-care (01) ==
LOC: HO.LAB 06:00
PROVIDERS: PCP Nurse Practitioner Family; Visit Provider Surgery
DX: I82.402 Acute embolism and thrombosis of unspecified deep veins of left lower extremity (principal)
CPT/HCPCS: 36415; 85610; 85730

== ENCOUNTER 2025-07-06 06:25 | Inpatient (IN) | payer OTHER, SELFPAY ==
[2025-06-29 16:12] VITALS: BMI 50.8
--- NOTE | 2025-07-02 11:17 | HO.ANESPROP2 ---
Documented by User: Rita Bang NP 07/02/25 11:24 HPI - Anesthesia Eval Consult details Narrative: 60 yr old female for Gastrectomy Sleeve,EGD,possible Diaphragmatic Hernia,possible Ventral Hernia,possible Open BMI 51 JOSÉ MIGUEL: on CPAP H/O DVT: IVC filter left LE, on coumadin Anesthesia Pre-Procedure Meds Is the patient on any of the following meds?: GLP1/DPP4 PMFSH Active Problems Active Problems: All Active Problems (Updated 06/29/25 @ 16:16 by Brigida Whittington RN) Vitamin B1 deficiency (Acute) Abnormal EKG (Acute) Elevated troponin (Acute) Pulmonary embolism (Acute) MDD (major depressive disorder), recurrent severe, without psychosis (Acute) DJD (degenerative joint disease) (Acute) GERD (gastroesophageal reflux disease) (Acute) Morbid obesity with BMI of 50.0-59.9, adult (Acute) Sleep apnea treated with continuous positive airway pressure (CPAP) (Acute) Hypertension (Acute) Depression (Acute) Anxiety (Acute) PTSD (post-traumatic stress disorder) (Acute) DVT (deep venous thrombosis) (Acute) Past Medical History Medical History Steatosis, liver Hx pulmonary embolism Arthritis DJD (degenerative joint disease) Morbid obesity with BMI of 50.0-59.9, adult Sleep apnea treated with continuous positive airway pressure (CPAP) 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 DVT (deep venous thrombosis) History of sciatica NIURKA (generalized anxiety disorder) MDD (major depressive disorder), recurrent severe, without psychosis GERD (gastroesophageal reflux disease) Common variable immunodeficiency Hypertension Anxiety Depression PTSD (post-traumatic stress disorder) Family History Family History Mother Thyroid condition Acute ITP Anxiety Depression Father CHF (congestive heart failure) Enlarged heart Stomach cancer Surgical History Surgical History Hx of tonsillectomy (1975) H/O colonoscopy History of esophagogastroduodenoscopy (EGD) (05/26/25) History of inferior vena caval filter placement (08/14/21) History of hysterectomy (2003) Social History Social History Household Members Other:: father Housing: House Are you a primary adult care manager to a significant other at home: No Do you presently have visiting nurse or other home services: No Alcohol intake: never Comment: Pt is A&O and ambulates independently w/walker Patient Tobacco Use Status: Never used Tobacco e-Cigarette/Vaping Use: Never Used Use of substances other than those prescribed or required for medical reasons: No Have you been hit, kicked, punched, or otherwise hurt by someone within the past year? If so, by whom?: No Are you DNR?: No Advance Directives: No Advance Directives Information Provided: Yes Advance Directives on File: No Poor oral hygiene: No service: No Current occupational status: employed Sexual orientation: did not discuss. Meds Allergies Allergy/AdvReac Type Severity Reaction Status Date / Time ciprofloxacin Allergy rash Verified 07/06/25 06:28 nitrofurantoin (From Allergy rash Verified 07/06/25 06:28 Macrobid) Sulfa (Sulfonamide Allergy rash Verified 07/06/25 06:28 Antibiotics) quetiapine (From Seroquel) AdvReac suicidal Verified 07/06/25 06:28 ideation Home Medications ?Medication ?Instructions ?Recorded ?Confirmed ?Last Taken ?Type clonazepam 1 mg tablet 1 tab PO BID 08/14/21 07/06/25 05/25/25 History lamotrigine 100 mg tablet 2.5 tab PO DAILY 08/14/21 07/06/25 05/25/25 History risperidone 1 mg tablet 1 mg PO BEDTIME 03/13/22 07/06/25 05/25/25 History warfarin 5 mg tablet 5 mg PO DAILY 03/13/22 07/06/25 06/30/25 History losartan 100 mg tablet 100 mg PO DAILY 04/28/25 07/06/25 05/12/25 History omeprazole 40 mg capsule,delayed 40 mg PO DAILY 04/28/25 07/06/25 05/25/25 History release cholecalciferol (vitamin D3) 50 2,500 unit PO DAILY 06/29/25 07/06/25 Unknown History mcg (2,000 unit) tablet (Vitamin D3) venlafaxine 150 mg 300 mg PO DAILY 06/29/25 07/06/25 Unknown History capsule,extended release 24 hr Exam Height,Weight and Vital Signs: Height 5 ft 3 in Weight 130.181 kg Pertinent Lab Results Pertinent Lab Results: Laboratory Tests 07/01/25 09:15 Blood Type A Positive Antibody Screen NEGATIVE Laboratory Tests 07/01/25 09:26 WBC 8.5 RBC 5.16 Hgb 14.9 Hct 44.2 Plt Count 342 Sodium 142 Potassium 3.9 BUN 21 H Creatinine 1.09 Narrative Narrative: EKG 04/2025 Vent. Rate : 80 BPM Atrial Rate : 80 BPM P-R Int : 144 ms QRS Dur : 84 ms QT Int : 372 ms P-R-T Axes : 61 31 70 degrees QTcB Int : 429 ms Normal sinus rhythm Nonspecific ST and T wave abnormality Abnormal ECG When compared with ECG of 27-Sep-2021 14:40, ST now depressed in Anterior leads Stress echo 05/2025 Conclusion : Stress echo is negative for ischemia at achieved workload with low confidence of interpretation. 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 DVT (deep venous thrombosis) History of sciatica NIURKA (generalized anxiety disorder) MDD (major depressive disorder), recurrent severe, without psychosis GERD (gastroesophageal reflux disease) Common variable immunodeficiency Hypertension Anxiety Depression PTSD (post-traumatic stress disorder) Family History Family History Mother Thyroid condition Acute ITP Anxiety Depression Father CHF (congestive heart failure) Enlarged heart Stomach cancer Surgical History Surgical History Hx of tonsillectomy (1975) H/O colonoscopy History of esophagogastroduodenoscopy (EGD) (05/26/25) History of inferior vena caval filter placement (08/14/21) History of hysterectomy (2004) History of Problems with Anesthesia: No Social History Social History Household Members Other:: father Housing: House Are you a primary adult care manager to a significant other at home: No Do you presently have visiting nurse or other home services: No Alcohol intake: never Comment: Pt is A&O and ambulates independently w/walker Patient Tobacco Use Status: Never used Tobacco e-Cigarette/Vaping Use: Never Used Use of substances other than those prescribed or required for medical reasons: No Have you been hit, kicked, punched, or otherwise hurt by someone within the past year? If so, by whom?: No Are you DNR?: No Advance Directives: No Advance Directives Information Provided: Yes Advance Directives on File: No Poor oral hygiene: No service: No Current occupational status: employed Sexual orientation: did not discuss. Meds Allergies Allergy/AdvReac Type Severity Reaction Status Date / Time ciprofloxacin Allergy rash Verified 07/06/25 06:28 nitrofurantoin (From Allergy rash Verified 07/06/25 06:28 Macrobid) Sulfa (Sulfonamide Allergy rash Verified 07/06/25 06:28 Antibiotics) quetiapine (From Seroquel) AdvReac suicidal Verified 07/06/25 06:28 ideation Home Medications ?Medication ?Instructions ?Recorded ?Confirmed ?Last Taken ?Type clonazepam 1 mg tablet 1 tab PO BID 08/14/21 07/06/25 05/25/25 History lamotrigine 100 mg tablet 2.5 tab PO DAILY 08/14/21 07/06/25 05/25/25 History risperidone 1 mg tablet 1 mg PO BEDTIME 03/13/22 07/06/25 05/25/25 History warfarin 5 mg tablet 5 mg PO DAILY 03/13/22 07/06/25 06/30/25 History losartan 100 mg tablet 100 mg PO DAILY 04/28/25 07/06/25 05/12/25 History omeprazole 40 mg capsule,delayed 40 mg PO DAILY 04/28/25 07/06/25 05/25/25 History release cholecalciferol (vitamin D3) 50 2,500 unit PO DAILY 06/29/25 07/06/25 Unknown History mcg (2,000 unit) tablet (Vitamin D3) venlafaxine 150 mg 300 mg PO DAILY 06/29/25 07/06/25 Unknown History capsule,extended release 24 hr Exam Airway Mallampati Class: II TM Dist: >3cm Neck ROM: Full Loose/Missing/Broken Teeth: Yes and Lower Heart: RRR Lungs: CTA Assessment and Plan Assessment Anesthesia Assessment: Anesthesia Plan Discussed and Chart Reviewed Final Anesthetic Review History of Problems with Anesthesia: No NPO: Yes ASA Class: III Final Preanesthetic Review: Meds/Allgs Chart Reviewed, Consent Obtained/Reviewed and Anes Risks/Benef Reviewed Patient Risk: Intermediate Procedure Risk: Intermediate Anesthetic Plan Anesthetic Plan: GA Disposition: Standard PACU
[2025-07-06] VITALS (10 sets, daily range): BP systolic 122–155; BP diastolic 57–79; PULSE 68–85; RESP 13–18; TEMP 36–37; O2SAT 92–99
--- OUTSIDE RECORDS SUMMARY | 2025-07-06 06:31 | XMS_ITS | Encounter Summary ---
Author Organization [facility] Address [address] [facility] [address] [place] [address] Phone Care Team Providers Care Objective C Developer Name Role Phone Demond Roger MD Unavailable [phone] FeltmateTianna MD Unavailable [phone] Yasmeen Ward MD Unavailable [email or web address] Madalyn Rogers MD Primary Care Provide r Meghna Parson MD Primary Care Provi vipin CarltonMacho gary W DO Unavailable Camila Nayak MISSION SUPPORT SPECIALIST Unavailable [employer] GARBAGE MAN Unavailable Marian Alicia MD Primary Care Provider [phone] Encounter Details Date Type Department Care Team (Late st Contact Info) Description 07/14/2020 Ancillary Orders Virtual Department 30 [place] [address] Meghna Parson MD [address] [place], [place] [phone] [email or web address] Breast screening Social History Tobacco Use Types [...] and compared with multiple prior studies, most /25/2019, with utilization of computer-aided detection. The breasts [...] documented as of this encounter Care Teams Objective C Developer Relationship Specialty Start Date End Date Madalyn Rogers MD [address] [place] [address] PCP - General 11/30/19 12/30/20 Meghna Parson MD [address] [place] [address] [email or web address] PCP - General Internal Medicine 12/31/20 01/04/22 Marian Alicia MD [address] [place] [address], [facility] 7 [place] [address] [email or web address] PCP - General Family Medicine 01/05/22 Demond Roger MD [address] [place] [address] [email or web address] Historical LMR Provider 02/24/15 10/21/21 Tianna Coello MD [address] [place] [address] [email or web address] Historical LMR Provider 02/24/15 10/21/21 Yasmeen Ward MD [email or web address] Historical LMR Provider 02/24/1510/21 Macho Vincent DO [address] [place] [address] [email or web address] Primary Oncologist Hematology and Oncology 09/13/21 Camila Nayak FNP [address] [place] [address] [email or web address] Nurse Practitioner Medical Oncology 11/03/21 Mile Reynolds CNP [address] [place] [address] [email or web address] Nurse Practitioner Medical Oncology 11/03/21 documented as of this encounter Additional Source Comments The information contained in this document represents components of the legal health record. It is not the complete legal health record.[facility]
--- OUTSIDE RECORDS SUMMARY | 2025-07-06 06:31 | XMS_ITS | Encounter Summary ---
Author Organization [facility] Address [address] [facility] [address] [place] [address] Phone Care Team Providers Care Utility Sales And Service Manager Name Role Phone Demond Roger MD Unavailable [phone] FeltTinana ng MD Unavailable [phone] Yasmeen Ward MD Unavailable [email or web address] Meghna Parson MD Primary Care Provi vipin Madalyn Rogers MD Primary Care Provide r Meghna Parson MD Primary Care Provi vipin Macho Vincent DO Unavailable [phone] Camila Nayak TRAFFIC WORKFORCE REPRESENTATIVE Unavailable [phone] CLIENT ADVOCATE Unavailable Marian Alicia MD Primary Care Provider [phone] Encounter Details Date Type Department Care Team (Late st Contact Info) Description 03/05/2018 Ancillary Orders Virtual Department 30 [place] [address] London Obregon MD [address] [facility] [address] [place] [address] [email or web address] Dyspnea, unspecified type; Hypoxemia; Cough; Wheeze; Pulmonary [...] documented as of this encounter Care Teams Utility Sales And Service Manager Relationship Specialty Start Date End Date Meghna Parson MD [email or web address] PCP - General Internal Medicine 08/19/17 11/29/19 Madalyn Rogers MD [address] [place] [address] PCP - General 11/30/19 12/30/20 Meghna Parson MD [email or web address] PCP - General Internal Medicine 12/31/20 01/04/22 Marian Alicia MD [address] [place] [address], [facility] 7 [place] [address] [email or web address] PCP - General Family Medicine 01/05/22 Demond Roger MD [address] [place] [address] [email or web address] Historical LMR Provider 02/24/15 10/21/21 Tianna Coello MD [address] [place] [address] [email or web address] Historical LMR Provider 02/24/15 10/21/21 Yasmeen Ward MD [email or web address] Historical LMR Provider 02/24/1510/21 Macho Vincent DO [address] [place] [address] [email or web address]. [facility] Primary Oncologist Hematology and Oncology 09/13/21 Camila Nayak FNP [address] [place] [address] [email or web address] Nurse Practitioner Medical Oncology 11/03/21 Mile Reynolds CNP [address] [place] [address] [email or web address] Nurse Practitioner Medical Oncology 11/03/21 documented as of this encounter Additional Source Comments The information contained in this document represents components of the legal health record. It is not the complete legal health record.[facility]
--- OUTSIDE RECORDS SUMMARY | 2025-07-06 06:31 | XMS_ITS | Encounter Summary ---
Author Organization [facility] Address [address] [facility] [address] [place] [address] Phone Care Team Providers Care Legal Writing Professor Name Role Phone Demond Roger MD Unavailable [phone] FeltmateTianna MD Unavailable [phone] Yasmeen Ward MD Unavailable [email or web address] Meghna Parson MD Primary Care Provi vipin CarltonMacho gary W DO Unavailable [phone] Camila Nayak LICENSED AUDIOLOGIST Unavailable [phone] WEDDING DECORATOR Unavailable Marian Alicia MD Primary Care Provider [phone] Encounter Details Date Type Department Care Team (Late st Contact Info) Description 08/25/2021 Procedure Pass [facility] 30 [place], [place] [id number] Social History Tobacco Use Types Packs/Day Years [...] documented as of this encounter Care Teams Legal Writing Professor Relationship Specialty Start Date End Date Meghna Parson MD [email or web address] PCP - General Internal Medicine 12/31/20 01/04/22 Marian Alicia MD [address] [place] [address] [email or web address] PCP - General Family Medicine 01/05/22 Demond Roger MD [address] [place] [address] [email or web address] Historical LMR Provider 02/24/15 10/21/21 Tianna Coello MD [address] [place] [address] [email or web address] Historical LMR Provider 02/24/15 10/21/21 Yasmeen Ward MD [email or web address].[facility] Historical LMR Provider 02/24/1510/21 Macho Vincent DO [address] [place] [address] [email or web address] [place] Primary Oncologist Hematology and Oncology 09/13/21 Camila Nayak FNP [address] [place] [address] [email or web address] Nurse Practitioner Medical Oncology 11/03/21 Mile Reynolds CNP [address] [place] [address] [email or web address] Nurse Practitioner Medical Oncology 11/03/21 documented as of this encounter Additional Source Comments The information contained in this document represents components of the legal health record. It is not the complete legal health record.[facility]
--- OUTSIDE RECORDS SUMMARY | 2025-07-06 06:31 | XMS_ITS | Encounter Summary ---
Author Organization [facility] Address [address] [facility] [address] [place] [address] Phone Care Team Providers Care Prep Room Supervisor Name Role Phone Demond Roger MD Unavailable [phone] FeltTianna ng MD Unavailable [phone] Yasmeen Ward MD Unavailable [email or web address] Meghna Parson MD Primary Care Provi vipin Madalyn Rogers MD Primary Care Provide r Meghna Parson MD Primary Care Provi vipin Macho Vincent DO Unavailable Camila Nayak CASH TELLER Unavailable Mile Reynolds SENIOR PRODUCT CONSULTANT Unavailable Marian Alicia MD Primary Care Provider [phone] Encounter Details Date Type Department Care Team (Late st Contact Info) Description 04/24/2018 Transcribe Orders [facility] Laboratory [address] [place] [address] Meghna Parson MD [address] [place], [place] [id number] [email or web address] Screening for tuberculosis (Primary Dx) Social History [...] * Quantiferon-TB Gold (04/24/2018 4:17 PM EDT) [facility] QuantiFERON-TB Gold Negative Negative [facility] Comment: (NOTE) No [...] MED/PATH SUPERIOR Mitogen minus Nil >10.00 IU/mL [facility] LAB MED/PATH SUPERIOR HODGE Nil Result 0.01 IU/mL [facility] LAB MED/PATH SUPERIOR HODGE Blood 04/24/2018 4:17 PM EDT 04/24/2018 4:18 PM EDT us Meghna Parson MD LAB BLOOD ORDERABLE S Final Result [facility] [address] [place] [address] documented in this encounter Visit Diagnoses Diagnosis [...] documented as of this encounter Care Teams Prep Room Supervisor Relationship Specialty Start Date End Date Meghna Parson MD [email or web address] PCP - General Internal Medicine 08/19/17 11/29/19 Madalyn Rogers MD [address] [place] [address] PCP - General 11/30/19 12/30/20 Meghna Parson MD [email or web address] PCP - General Internal Medicine 12/31/20 01/04/22 Marian Alicia MD [address] [place] [address] 7 [place] [address] [email or web address] PCP - General Family Medicine 01/05/22 Demond Roger MD [address] [place] [address] [email or web address] Historical LMR Provider 02/24/15 10/21/21 Tianna Coello MD [address] [place] [address] [email or web address] Historical LMR Provider 02/24/15 10/21/21 Yasmeen Ward MD [email or web address] Historical LMR Provider 02/24/1510/21 Macho Vincent DO [address] [place] [address] [email or web address] Primary Oncologist Hematology and Oncology 09/13/21 Camila Nayak FNP [address] [place] [address] [email or web address] Nurse Practitioner Medical Oncology 11/03/21 Mile Reynolds CNP [address] [place] [address] [email or web address] Nurse Practitioner Medical Oncology 11/03/21 documented as of this encounter Additional Source Comments The information contained in this document represents components of the legal health record. It is not the complete legal health record.[facility]
--- OUTSIDE RECORDS SUMMARY | 2025-07-06 06:31 | XMS_ITS | Encounter Summary ---
Author Organization [facility] Address [address] [facility] [address] [place] [address] Phone Care Team Providers Care Electric Accounting Machine Operator Name Role Phone Demond Roger MD Unavailable [phone] FeltTianna ng MD Unavailable [phone] Yasmeen Ward MD Unavailable [email or web address] Meghna Parson MD Primary Care Provi vipin Madalyn Rogers MD Primary Care Provide r Meghna Parson MD Primary Care Provi vipin Macho Vincent DO Unavailable Camila Nayak BRANCH OPERATIONS MANAGER Unavailable Mile Reynolds FIRST AID TRAINER Unavailable Marian Alicia MD Primary Care Provider [phone] Encounter Details Date Type Department Care Team (Latest Contact Info) Description 07/21/2018 Transcribe Orders [facility] Laboratory [address] [place] [address] Steven Trinidad, DO [address] [facility], [address] [place] [address] [email or web address] Hypogammaglobulinemia (Primary Dx) Social History [...] IgA, IgM (07/21/2018 10:41 AM EDT) Pathologist [facility] IMMUNOGLOBULIN G 478(L) 700 - 1,600 mg/dL [facility] IgA 67(L) 70 - 400 mg/dL [facility] IMMUNOGLOBULIN M 43 40 - 230 mg/dL [facility] Blood 07/21/2018 10:4 1 AM EDT 07/21/2018 10:52 AM EDT us Steven Trinidad DO LAB BLOOD ORDERABLES Final R esult [facility] [address] [place] [address] * (ABNORMAL) IgG subclasses (07/21/2018 10:41 AM EDT) Pathologist [facility] IGG 1 217(L) 341 - 894 mg/dL [facility] DPT OF LAB MED AND PAT+ IGG 2 181 171 - 632 mg/dl [facility]PT OF LAB MED AND PAT+ IGG 3 85.1 18.4 - 106.0 mg/dl [facility] OF LAB MED AND PAT+ IGG 4 10.7 2.4 - 121.0 mg/dl [facility] DPT OF LAB MED AND PAT+ TOTAL IGG 463(L) 767 - 1,590 mg/dl [facility] DPT OF LAB MED AND PAT+ Blood 07/21/2018 10:4 1 AM EDT 07/21/2018 10:51 AM EDT Steven Trinidad DO LAB BLOOD ORDERABLES Final R esult [facility] DPT OF LAB MED AND PAT+ [address] [place] [address] * (ABNORMAL) Monoclonal protein study, serum (07/21/2018 10:41 AM EDT) TOTAL PROTEIN 5.9(L) 6.3 - 7.9 g/dL [facility] DPT OF LAB MED AND PAT+ ALBUMIN 3.2(L) 3.4 - 4.7 g/dL [facility] DPT OF LAB MED AND PAT+ ALPHA-1 GLOBULIN 0.2 0.1 - 0.3 g/dL [facility] DPT OF LAB MED AND PAT+ ALPHA-2 GLOBULIN 1.0 0.6 - 1.0 g/dL [facility] DPT OF LAB MED AND PAT+ BETA-GLOBULIN 0.9 0.7 - 1.2 g/dL [facility] DPT OF LAB MED AND PAT+ GAMMA-GLOBULIN 0.5(L) 0.6 - 1.6 g/dL [facility] DPT OF LAB MED AND PAT+ A/G RATIO 1.19 [facility] LAB MED AND PAT+ M SPIKE Test component not applicable or not reported. not reported [facility] DPT OF LAB MED AND PAT+ M SPIKE Test component not applicable or not reported. not reported [facility] DPT OF LAB MED AND PAT+ IMPRESSION SEE NOTE [facility] DPT OF LAB MED AND PAT+ Comment: (NOTE) Hypogammaglobulinemia See Immunofixation. IMMUNOFIXATION No monoclonal protein detected. [facility] DPT OF LAB MED AND PAT+ Blood 07/21/2018 10:4 1 AM EDT 07/21/2018 10:51 AM EDT Steven Trinidad DO LAB BLOOD ORDERABLES Final R esult [facility] DPT OF LAB MED AND PAT+ [address] [place] [address] * Tetanus antitoxoid antibody, IgG (07/21/2018 10:41 AM EDT) Tetanus Ab, IgG Positive [facility] LAB MED/PATH SUPERIOR HODGE Comment: (NOTE) REFERENCE VALUE Vaccinated: Positive (>= 0.01 IU/mL) Unvaccinated: Negative (< 0.01 IU/mL) Tetanus IgG Value 1.97 IU/mL [facility] DEP LAB MED/PATH SUPERIOR Comment: (NOTE) ADDITIONAL INFORMATION This test was developed and its performance characteristics determined by [facility] in a manner consistent with CLIA requirements. This test has not been cleared or approved by the U.S. Food and Drug Administration. Blood 07/21/2018 10:4 1 AM EDT 07/21/2018 10:51 AM EDT Steven Trinidad LAB BLOOD ORDERABLES Final R esult [facility] LAB MED/PATH SUPERIOR [address] [place] [address] * (ABNORMAL) Comprehensive metabolic panel (07/21/2018 10:41 AM EDT) Pathologist [facility] SODIUM 145 133 - 146 mmol/L [facility] POTASSIUM 4.0 3.3 - 5.1 mmol/L [facility] CHLORIDE 106 96 - 108 mmol/L [facility] CO2 28 21 - 35 mmol/L [facility] BUN 14 6 - 19 mg/dL [facility] CREATININE 1.00 0.5 - 1.5 mg/dL [facility] GLUCOSE 84 70 - 99 mg/dL [facility] ALBUMIN 4.1 3.9 - 4.8 g/dL [facility] TOTAL PROTEIN 6.1(L) 6.5 - 8.0 g/dL [facility] CALCIUM 9.6 8.4 - 10.3 mg/dL [facility] ALKALINE PHOSPHATASE 70 39 - 117 U/L [facility] TOTAL BILIRUBIN 0.3 0.0 - 1.2 mg/dL [facility] AST 21 0 - 37 U/L [facility] ALT 14 0 - 40 U/L [facility] GLOBULIN 2.0 1 - 4.8 g/dL [facility] EGFR 65 >59 mL/min/1.7 3m2 [facility] Comment:If patient is black, multiply result by 1.159. Estimated glomerular filtration rate calculated using the CKD-EPI equation. ANION GAP 15 10 - 20 mmol/L [facility] Blood 07/21/2018 10:4 1 AM EDT 07/21/2018 10:52 AM EDT us Steven Trinidad DO LAB BLOOD ORDERABLES Final R esult [facility] [address] [place] [address] * (ABNORMAL) CBC and differential (07/21/2018 10:41 AM EDT) WBC 7.14 3.40 - 11.20 K/uL [facility] RBC 4.86(H) 3.80 - 4.80 M/uL [facility] HGB 14.6 12.0 - 15.0 g/dL [facility] HCT 43.4 36.0 - 46.0 % [facility] PLT 259 130 - 400 K/uL [facility] MCV 89.3 79.0 - 98.0 fL [facility] MCH 30.0 27.0 - 34.8 pg [facility] MCHC 33.6 31.5 - 36.0 g/dL [facility] RDW 13.0 10.8 - 14.6 % [facility] MPV 10.0 9.4 - 12.4 fl [facility] NRBC 0.00 /100 WBCs [facility] ABSOLUTE NRBC 0.00 K/uL [facility] DIFF METHOD Auto [facility] NEUTS 58.4 45.30 - 77.70 % [facility] LYMPHS 32.5 12.30 - 39.70 % [facility] MONOS 6.7 4.10 - 12.80 % [facility] EOS 1.5 0 - 7.2 % [facility] BASOS 0.3 0 - 2.80 % [facility] Granulocytes, immature (%) 0.6 0.0 - 0.9 % [facility] ABSOLUTE NEUTS 4.17 1.40 - 7.70 K/uL [facility] ABSOLUTE LYMPHS 2.32 0.60 - 3.20 K/uL [facility] ABSOLUTE MONOS 0.48 0.11 - 0.59 K/uL [facility] ABSOLUTE EOS 0.11 0.01 - 0.50 K/uL [facility] ABSOLUTE BASOS 0.02 0.00 - 0.08 K/uL [facility] Granulocytes, immature 0.04 0.00 - 0.05 K/uL [facility] Blood 07/21/2018 10:4 1 AM EDT 07/21/2018 10:52 AM EDT Steven Trinidad DO LAB BLOOD ORDERABLES Final R esult Performing Organization Address City/State/[facility] Co de Phone Number [address] [address] documented in this encounter Visit Diagnoses Diagnosis Hypogammaglobulinemia- Primary Unspecified hypogammaglobulinemia documented in this encounter Additional Health Concerns Infection Onset Date Last Indicated Resolved Time CoV-Exposed Comment:Recent close contact documented in the COVID-19 PCR/PRO order 09/25/2021 10/03/2021 10/10/2021 1:[address] CoV-Presumed 10/09/2022 10/09/2022 10/30/2022 1:21 AM EST CoV-Risk 03/01/2023 03/01/2023 03/12/2023 1:22 AM EDT documented as of this encounter Care Teams Electric Accounting Machine Operator Relationship Specialty Start Date End Date Meghna Parson MD [email or web address] PCP - General Internal Medicine 08/19/17 11/29/19 Madalyn Rogers MD [address] [place] [address] PCP - General 11/30/19 12/30/20 Meghna Parson MD [email or web address] PCP - General Internal Medicine 12/31/20 01/04/22 Marian Alicia MD [address] [place] [address] [address] [place] [address] [email or web address] PCP - General Family Medicine 01/05/22 Demond Roger MD [address] [place] [address] [email or web address] Historical LMR Provider 02/24/15 10/21/21 Tianna Coello MD [address] [place] [address] [email or web address] Historical LMR Provider 02/24/15 10/21/21 Yasmeen Ward MD [email or web address] Historical LMR Provider 02/24/1510/21 Macho Vincent DO [address] [place] [address] [email or web address] Primary Oncologist Hematology and Oncology 09/13/21 Camila Nayak FNP [address] [place] [address] [email or web address] Nurse Practitioner Medical Oncology 11/03/21 Mile Reynolds CNP [address] [place] [address] [email or web address] Nurse Practitioner Medical Oncology 11/03/21 documented as of this encounter Additional Source Comments The information contained in this document represents components of the legal health record. It is not the complete legal health record.[facility]
--- OUTSIDE RECORDS SUMMARY | 2025-07-06 06:31 | XMS_ITS | Encounter Summary ---
Author Organization [facility] Address [address] [facility] [address] [place] [address] Phone Care Team Providers Care Electric Sign Wirer Name Role Phone Demond Roger MD Unavailable [phone] FeltTianna ng MD Unavailable [phone] Yasmeen Ward MD Unavailable [email or web address] Meghna Parson MD Primary Care Provi vipin Madalyn Rogers MD Primary Care Provide r Meghna Parson MD Primary Care Provi vipin Macho Vincent DO Unavailable [phone] Camila Nayak CUTTER MACHINE TENDER Unavailable [phone] Mile Reynolds TOOLROOM HELPER Unavailable Marian Alicia MD Primary Care Provider [phone] Encounter Details Date Type Department Care Team (Late st Contact Info) Description 10/28/2018 Transcribe Orders [facility] Specimen Processing [address] [place] [address] Meghna Parson MD [address] [place], [place] [id number] [email or web address] Urinary tract infection without hematuria, site unspecified [...] Specimen Source/ Description URINE CLEAN CATCH URINE [facility] Special Requests None [facility] GRAM STAIN NO ORGANISMS SEEN [facility] Culture/Test 10,000 to 100,000 colony forming units per ml MIXED HAYLEE (3 OR MORE COLONY TYPES) Culture indicates contamination . Please resubmit if necessary.(A) [facility] Report Status 10/30/2018 FINAL [facility] Urine (Urine) 10/28/2018 4:3 7 PM EST 10/28/2018 4:39 PM EST us Meghna Parson MD MICROBIOLOGY - [facility] ORDERABLES Final Result [facility] [address] [place] [address] * (ABNORMAL) Urinalysis (10/28/2018 4:37 PM EST) COLOR Yellow Yellow [facility] CLARITY Clear [facility] GLUCOSE Negative Negative [facility] BILI Negative Negative [facility] KETONES Negative Negative [facility] SPECIFIC GRAVITY 1.010 1.005 - 1.030 [facility] BLOOD Negative Negative [facility] PH 6.0 5.0 - 8.0 [facility] Protein-UA Negative Negative [facility] NITRITE Negative Negative [facility] Leukocyte esterase, ur Trace(A) Negative [facility] Urine (Urine) 10/28/2018 4:3 7 PM EST 10/28/2018 4:39 PM EST Meghna Parson MD URINE ORDERABLES Fi nal Result [facility] [address] [place] [address] documented in this encounter Visit Diagnoses Diagnosis [...] as of this encounter Care Teams Electric Sign Wirer Relationship Specialty Start Date End Date Meghna Parson MD [email or web address] PCP - General Internal Medicine 08/19/17 11/29/19 Madalyn Rogers MD [address] [place] [address] PCP - General 11/30/19 12/30/20 Meghna Parson MD [email or web address] PCP - General Internal Medicine 12/31/20 01/04/22 Marian Alicia MD [address] [place] [address] 7 [place] [address] PCP - General Family Medicine 01/05/22 Demond Roger MD [address] [place] [address] [email or web address] Historical LMR Provider 02/24/15 10/21/21 Tianna Coello MD [address] [place] [address] [email or web address] Historical LMR Provider 02/24/15 10/21/21 Yasmeen Ward MD [email or web address] Historical LMR Provider 02/24/1510/21 Macho Vincent DO [address] [place] [address] [email or web address] Primary Oncologist Hematology and Oncology 09/13/21 Camila Nayak FNP [address] [place] [address] Nurse Practitioner Medical Oncology 11/03/21 Mile Reynolds CNP [address] [place] [address] [email or web address] Nurse Practitioner Medical Oncology 11/03/21 documented as of this encounter Additional Source Comments The information contained in this document represents components of the legal health record. It is not the complete legal health record.[facility]
--- OUTSIDE RECORDS SUMMARY | 2025-07-06 06:31 | XMS_ITS | Encounter Summary ---
Author Organization [facility] Address [address] [facility] [address] [place] [address] Phone Care Team Providers Care Donor Technician Name Role Phone Demond Roger MD Unavailable [phone] FeltTianna ng MD Unavailable [phone] Yasmeen Ward MD Unavailable [email or web address] Meghna Parson MD Primary Care Provi vipin Madalyn Rogers MD Primary Care Provide r Meghna Parson MD Primary Care Provi vipin Macho Vincent DO Unavailable [phone] Camila Nayak ULTRASOUND APPLICATIONS SPECIALIST Unavailable Mile Reynolds QUALITY ASSURANCE SUPERVISOR Unavailable Marian Alicia MD Primary Care Provider [phone] Encounter Details Date Type Department Care Team (Late st Contact Info) Description 07/31/2018 Ancillary Orders Virtual Department [address] [place] [address] Meghna Parson MD [address] [place], [place] [id number] [email or web address] Breast screening Social History Tobacco Use [...] There are scattered fibroglandular densities. POS - [id number] Narrative 09/05/2018 9:29 AM EST Bilateral mammography [...] There are scattered fibroglandular densities. POS - [id number] Meghna Parson MD IMG MG EXAMS Fin [...] documented as of this encounter Care Teams Donor Technician Relationship Specialty Start Date End Date Meghna Parson MD [email or web address] PCP - General Internal Medicine 08/19/17 11/29/19 Madalyn Rogers MD [address] [place] [address] PCP - General 11/30/19 12/30/20 Meghna Parson MD [email or web address] PCP - General Internal Medicine 12/31/20 01/04/22 Marian Alicia MD [address] [place] [address], [address] [place] [address] PCP - General Family Medicine 01/05/22 Demodn Roger MD [address] [place] [address] [email or web address] Chao LMR Provider 02/24/15 10/21/21 Tianna Coello MD [address] [place] [address] [email or web address] Historical LMR Provider 02/24/15 10/21/21 Yasmeen Ward MD [email or web address] Historical LMR Provider 02/24/1510/21 Macho Vincent DO [address] [place] [address] [email or web address] Primary Oncologist Hematology and Oncology 09/13/21 Camila Nayak FNP [address] [place] [address] [email or web address] Nurse Practitioner Medical Oncology 11/03/21 Mile Reynolds CNP [address] [place] [address] [email or web address] Nurse Practitioner Medical Oncology 11/03/21 documented as of this encounter Additional Source Comments The information contained in this document represents components of the legal health record. It is not the complete legal health record.[facility]
--- OUTSIDE RECORDS SUMMARY | 2025-07-06 06:31 | XMS_ITS | Encounter Summary ---
Author Organization [facility] Address [address] [facility] [address] [place] [address] Phone Care Team Providers Care Electric Motor Tester Assembler Name Role Phone Demond Roger MD Unavailable [phone] FeltmateTianna MD Unavailable [phone] Yasmeen Ward MD Unavailable [email or web address] Meghna Parson MD Primary Care Provi vipin CarltonMacho gary W DO Unavailable [phone] Camila Nayak SHEEP OR CALF GRADER Unavailable Pack, Mile QA DEVELOPER Unavailable Marian Alicia MD Primary Care Provider [phone] Encounter Details Date Type Department Care Team (Late st Contact Info) Description 10/03/2021 Transcribe Orders Virtual Department [address] [place] [address] Meghna Parson MD [address] [place], [place] [phone] [email or web address] Exposure to COVID-19 virus (Primary Dx) Social [...] be available within 24 to 48 hrs. [facility] Symptomatic? NO [facility] Other 10/04/2021 12:5 8 PM EST 10/04/2021 2:19 PM EST us Meghna Parson MD BODY FLUIDS AND STO OLS ORDERABLES Final Result Performing Organization Address City/State/[facility] Co de Phone Number [address] [address] [facility] [address] [place] [address] documented in this encounter Visit Diagnoses Diagnosis [...] as of this encounter Care Teams Electric Motor Tester Assembler Relationship Specialty Start Date End Date Meghna Parson MD [email or web address] PCP - General Internal Medicine 12/31/20 01/04/22 Marian Alicia MD [address] [place] [address], [address] [place] [address] [email or web address] PCP - General Family Medicine 01/05/22 Demond Roger MD [address] [place] [address] [email or web address] Historical LMR Provider 02/24/15 10/21/21 Tianna Coello MD [address] [place] [address] [email or web address] Historical LMR Provider 02/24/15 10/21/21 Yasmeen Ward MD [email or web address] Historical LMR Provider 02/24/1510/21 Macho Vincent DO [address] [place] [address] [email or web address] Primary Oncologist Hematology and Oncology 09/13/21 Camila Nayak FNP [address] [place] [address] [email or web address] Nurse Practitioner Medical Oncology 11/03/21 Mile Reynolds CNP [address] [place] [address] [email or web address] Nurse Practitioner Medical Oncology 11/03/21 documented as of this encounter Additional Source Comments The information contained in this document represents components of the legal health record. It is not the complete legal health record.[facility]
--- OUTSIDE RECORDS SUMMARY | 2025-07-06 06:31 | XMS_ITS | Encounter Summary ---
Author Organization [facility] Address [address] [facility] [address] [place] [address] Phone Care Team Providers Care Quality Assurance Nurse Name Role Phone Demond Roger MD Unavailable [phone] FeltTianna ng MD Unavailable [phone] Yasmeen Ward MD Unavailable [email or web address] Meghna Parson MD Primary Care Provi vipin Macho Vincent W DO Unavailable Camila Nayak PATIENT EXPERIENCE COORDINATOR Unavailable [phone] PAPER STEAMER Unavailable Marian Alicia MD Primary Care Provider [phone] Reason for Referral * Consultation (Elective) - Closed Specialty Diagnoses / Procedures Referred By [place] t Referred To Contact Pulmonary Disease Meghna Parson MD Phone: tel: mailto:[email or web address] [address] [address] Phone: tel: Referral ID Status Reason Start Date Expiration Date Visits Re quested Visits Authorized [id number] Closed 08/25/2021 08/25/2022 1 1 Encounter Details Date Type Department Care Team (Late st Contact Info) Description 08/25/2021 Transcribe Orders [facility] Pulmonary, Allergy and Critical Care Medicine [address] [place] [address] [place] [address] Meghna Parson MD [address] [place] [address] [email or web address] Social History Tobacco Use Types Packs/Day Years [...] Diagnoses Order Schedule Ambulatory referral to [facility] Pulmonology Outpatient Referral Routine Ordered: 08/25/2021 documented [...] documented as of this encounter Care Teams Quality Assurance Nurse Relationship Specialty Start Date End Date Meghna Parson MD [email or web address] PCP - General Internal Medicine 12/31/20 01/04/22 Marian Alicia MD [address] [place] [address], [address] [place] [address] [email or web address] PCP - General Family Medicine 01/05/22 Demond Roger MD [address] [place] [address] [email or web address] Historical LMR Provider 02/24/15 10/21/21 Tianna Coello MD [address] [place] [address] [email or web address] Historical LMR Provider 02/24/15 10/21/21 Yasmeen Ward MD [email or web address] Historical LMR Provider 02/24/1510/21 Macho Vincent DO [address] [place] [address] [email or web address] Primary Oncologist Hematology and Oncology 09/13/21 Camila Nayak FNP [address] [place] [address] [email or web address] Nurse Practitioner Medical Oncology 11/03/21 Mile Reynolds CNP [address] [place] [address] [email or web address] Nurse Practitioner Medical Oncology 11/03/21 documented as of this encounter Additional Source Comments The information contained in this document represents components of the legal health record. It is not the complete legal health record.[facility]
--- OUTSIDE RECORDS SUMMARY | 2025-07-06 06:31 | XMS_ITS | Encounter Summary ---
Author Organization [facility] Address [address] [facility] [address] [place] [address] Phone Care Team Providers Care Radio Presenter Name Role Phone Demond Roger MD Unavailable [phone] FeltmateTianna MD Unavailable [phone] Yasmeen Ward MD Unavailable [email or web address] Meghna Parson MD Primary Care Provi vipin CarltonMacho gary W DO Unavailable [phone] Camila Nayak WAREHOUSE DELIVERY DRIVER Unavailable Mile Reynolds AUDIOPROSTHOLOGIST Unavailable Marian Alicia MD Primary Care Provider [phone] Encounter Details Date Type Department Care Team (Late st Contact Info) Description 08/28/2021 Procedure Pass [facility] [address] [place], [place] [phone] Social History Tobacco Use Types Packs/Day Years [...] documented as of this encounter Care Teams Radio Presenter Relationship Specialty Start Date End Date Meghna Parson MD [email or web address] PCP - General Internal Medicine 12/31/20 01/04/22 Marian Alicia MD [address] [address] 7 [place] [address] [email or web address] PCP - General Family Medicine 01/05/22 Demond Roger MD [address] [place] [address] [email or web address] Historical LMR Provider 02/24/15 10/21/21 Tianna Coello MD [address] [place] [address] [email or web address] Historical LMR Provider 02/24/15 10/21/21 Yasmeen Ward MD [email or web address] Historical LMR Provider 02/24/1510/21 Macho Vincent DO [address] [place] [address] [email or web address]. [facility] Primary Oncologist Hematology and Oncology 09/13/21 Camila Nayak FNP [address] [place] [address] [email or web address] Nurse Practitioner Medical Oncology 11/03/21 Mile Reynolds CNP [address] [place] [address] [email or web address] Nurse Practitioner Medical Oncology 11/03/21 documented as of this encounter Additional Source Comments The information contained in this document represents components of the legal health record. It is not the complete legal health record.[facility]
--- OUTSIDE RECORDS SUMMARY | 2025-07-06 06:31 | XMS_ITS | Encounter Summary ---
Author Organization [facility] Address [address] [address] Phone Care Team Providers Care Jointer Machine Operator Name Role Phone Demond Roger MD Unavailable [phone] FeltTianna ng MD Unavailable [phone] Yasmeen Ward MD Unavailable [email or web address] Meghna Parson MD Primary Care Provi vipin Madalyn Rogers MD Primary Care Provide r Meghna Parson MD Primary Care Provi vipin Macho Vincent DO Unavailable [phone] Camila Nayak FAMILY READINESS SUPPORT ASSISTANT Unavailable [phone] CEMENT CONTRACTOR Unavailable Marian Alicia MD Primary Care Provider [phone] Reason for Referral * Physical Therapy (Routine) - Closed Specialty Diagnoses / Procedures Referred By [place] t Referred To Contact Physical Therapy Diagnoses SI (sacroiliac) pain Meghna Parson MD Phone: tel: mailto:[email or web address] [address] [place] [address] Phone: tel: Referral ID Status Reason Start Date Expiration Date Visits Re quested Visits Authorized [id number] Closed 01/27/2019 01/28/2020 1 1 Encounter Details Date Type Department Care Team (Latest Contact Info) Description 01/27/2019 Transcribe Orders [facility] [address] [place] [address] Meghna Parson MD [address] [place] [address] [email or web address] SI (sacroiliac) pain (Primary Dx) Social History [...] Associated Diagnoses Order Schedule Ambulatory referral to [facility] Physical Therapy Outpatient Referral Routine SI (sacroiliac) [...] documented as of this encounter Care Teams Jointer Machine Operator Relationship Specialty Start Date End Date Meghna Parson MD [email or web address] PCP - General Internal Medicine 08/19/17 11/29/19 Madalyn Rogers MD [address] [place] [address] PCP - General 11/30/19 12/30/20 Meghna Parson MD [email or web address] PCP - General Internal Medicine 12/31/20 01/04/22 Marian Alicia MD [address] [place] [address] [email or web address] PCP - General Family Medicine 01/05/22 Demond Roger MD [address] [place] [address] [email or web address] Historical LMR Provider 02/24/15 10/21/21 Tianna Coello MD [address] [place] [address] [email or web address] .[facility] Historical LMR Provider 02/24/15 10/21/21 Yasmeen Ward MD [email or web address] Historical LMR Provider 02/24/1510/21 Macho Vincent DO [address] [place] [address] [email or web address].[email or web address]. [facility] Primary Oncologist Hematology and Oncology 09/13/21 Camila Nayak FNP [address] [place] [address] [email or web address] Nurse Practitioner Medical Oncology 11/03/21 Mile Reynolds CNP [address] [place] [address] [email or web address] Nurse Practitioner Medical Oncology 11/03/21 documented as of this encounter Additional Source Comments The information contained in this document represents components of the legal health record. It is not the complete legal health record.[facility]
--- OUTSIDE RECORDS SUMMARY | 2025-07-06 06:31 | XMS_ITS | Clinical Summary ---
Author Organization [facility] Address [address] [place] [address] Phone Care Team Providers Care Employment Service Specialist Name Role Phone Aretha Bain NP Primary Care Provider [phone] Allergies Active Allergy Reactions Criticality Noted Date [...] Visit [facility] [address] [place] [address] Jamison Avila MD Hypertensive heart and chronic [...] Office Visit [facility] [address] [place] [phone] Jamison Avila MD [address] [facility] [place] [phone] Health Maintenance Due Date Last Done Comments [...] Discontinued 05/25/2008, 05/05/2008, 05/05/2008 Insurance Medicaid [place] [facility] Care Teams Employment Service Specialist Relationship Specialty Start Date End Date Aretha Bain NP [address] [facility] 1 [place] [address] PCP - General Nurse Practitioner 04/12/25
--- OUTSIDE RECORDS SUMMARY | 2025-07-06 06:31 | XMS_ITS | Encounter Summary ---
Author Organization [facility] Address [address] [facility] [address] [place] [address] Phone Care Team Providers Care Professor Of Nursing Name Role Phone Demond Roger MD Unavailable [phone] FeltTianna ng MD Unavailable [phone] Yasmeen Ward MD Unavailable [email or web address] Meghna Parson MD Primary Care Provi vipin Madalyn Rogers MD Primary Care Provide r Meghna Parson MD Primary Care Provi vipin Macho Vincent DO Unavailable Camila Nayak FACILITIES LOCATOR Unavailable Mile Reynolds REST ROOM MATRON Unavailable Marian Alicia MD Primary Care Provider [phone] Encounter Details Date Type Department Care Team (Late st Contact Info) Description 04/17/2018 Ancillary Orders [facility], X-Ray - [address] [address] Meghna Parson MD [address] [place], [place] [phone] [email or web address] Cough; Wheezing Social History Tobacco Use Types [...] documented as of this encounter Care Teams Professor Of Nursing Relationship Specialty Start Date End Date Meghna Parson MD [email or web address] PCP - General Internal Medicine 08/19/17 11/29/19 Madalyn Rogers MD [address] [place] [address] PCP - General 11/30/19 12/30/20 Meghna Parson MD [email or web address] PCP - General Internal Medicine 12/31/20 01/04/22 Marian Alicia MD [address] [place] [address] [email or web address] PCP - General Family Medicine 01/05/22 Demond Roger MD [address] [place] [address] [email or web address] Historical LMR Provider 02/24/15 10/21/21 Tianna Coello MD [address] [place] [address] [email or web address] .[email or web address] Historical LMR Provider 02/24/15 10/21/21 Yasmeen Ward MD [email or web address] Historical LMR Provider 02/24/1510/21 Macho Vincent DO [address] [place] [address] [email or web address] Primary Oncologist Hematology and Oncology 09/13/21 Camila Naayk FNP [address] [place] [address] [email or web address] Nurse Practitioner Medical Oncology 11/03/21 Mile Reynolds CNP [address] [place] [address] [email or web address] Nurse Practitioner Medical Oncology 11/03/21 documented as of this encounter Additional Source Comments The information contained in this document represents components of the legal health record. It is not the complete legal health record.[facility]
--- OUTSIDE RECORDS SUMMARY | 2025-07-06 06:31 | XMS_ITS | Encounter Summary ---
Author Organization [facility] Address [address] [facility] [address] [place] [address] Phone Care Team Providers Care Referral And Information Aide Name Role Phone Demond Roger MD Unavailable [phone] FeltmateTianna MD Unavailable [phone] Yasmeen Ward MD Unavailable [email or web address] Madalyn Rogers MD Primary Care Provide r Meghna Parson MD Primary Care Provi vipin Macho Vincent W DO Unavailable [phone] Camila Nayak TRANSMITTER OPERATOR Unavailable [phone] REGISTERED RADIOLOGIC TECHNOLOGIST Unavailable Marian Alicia MD Primary Care Provider [phone] Encounter Details Date Type Department Care Team (Late st Contact Info) Description 07/14/2020 Procedure Pass [facility], [address] [phone] Social History Tobacco Use Types Packs/Day Years [...] documented as of this encounter Care Teams Referral And Information Aide Relationship Specialty Start Date End Date Madalyn Rogers MD [address] [place] [address] PCP - General 11/30/19 12/30/20 Meghna Parson MD [address] [place] [address] [email or web address] PCP - General Internal Medicine 12/31/20 01/04/22 Marian Alicia MD [address] [place] [address], [facility] 7 [place] [address] [email or web address] PCP - General Family Medicine 01/05/22 Demond Roger MD [address] [place] [address] [email or web address] Historical LMR Provider 02/24/15 10/21/21 Tianna Coello MD [address] [place] [address] [email or web address] Historical LMR Provider 02/24/15 10/21/21 Yasmeen Ward MD [email or web address] Historical LMR Provider 02/24/1510/21 Macho Vincent DO [address] [place] [address] [email or web address] Primary Oncologist Hematology and Oncology 09/13/21 Camila Nayak FNP [address] [place] [address] [email or web address] Nurse Practitioner Medical Oncology 11/03/21 Mile Reynolds CNP [address] [place] [address] [email or web address] Nurse Practitioner Medical Oncology 11/03/21 documented as of this encounter Additional Source Comments The information contained in this document represents components of the legal health record. It is not the complete legal health record.[facility]
--- OUTSIDE RECORDS SUMMARY | 2025-07-06 06:31 | XMS_ITS | Encounter Summary ---
Author Organization [facility] Address [address] [facility] [address] [place] [address] Phone Care Team Providers Care Director Online Marketing Name Role Phone Demond Roger MD Unavailable [phone] FeltTianna ng MD Unavailable [phone] Yasmeen Ward MD Unavailable [email or web address] Meghna Parson MD Primary Care Provi vipin Madalyn Rogers MD Primary Care Provide r Meghna Parson MD Primary Care Provi vipin Macho Vincent DO Unavailable [phone] Camila Nayak DIRECTOR INVESTMENT BANKING Unavailable Mile Reynolds TIMBER SELECTOR Unavailable Marian Alicia MD Primary Care Provider [phone] Encounter Details Date Type Department Care Team (Late st Contact Info) Description 01/26/2019 Ancillary Orders [facility], X-Ray - [address] [address] Meghna aPrson MD [address] [place], [place] [phone] .Swapdom Hip pain, left Social History Tobacco Use [...] as of this encounter Care Teams Director Online Marketing Relationship Specialty Start Date End Date Meghna Parson MD [email or web address] PCP - General Internal Medicine 08/19/17 11/29/19 Madalyn Rogers MD [address] [place] [address] PCP - General 11/30/19 12/30/20 Meghna Parson MD [email or web address] PCP - General Internal Medicine 12/31/20 01/04/22 Marian Alicia MD [address] [place] [address] 7 [place] [address] PCP - General Family Medicine 01/05/22 Demond Roger MD [address] [place] [address] [email or web address] Historical LMR Provider 02/24/15 10/21/21 Tianna Coello MD [address] [place] [address] [email or web address] Historical LMR Provider 02/24/15 10/21/21 Yasmeen Ward MD [email or web address] Historical LMR Provider 02/24/1510/21 Macho Vincent DO [address] [place] [address] [email or web address] Primary Oncologist Hematology and Oncology 09/13/21 Camila Nayak FNP [address] [place] [address] Nurse Practitioner Medical Oncology 11/03/21 Mile Reynolds CNP [address] [place] [address] Nurse Practitioner Medical Oncology 11/03/21 documented as of this encounter Additional Source Comments The information contained in this document represents components of the legal health record. It is not the complete legal health record.[facility]
--- OUTSIDE RECORDS SUMMARY | 2025-07-06 06:31 | XMS_ITS | Encounter Summary ---
Author Organization [facility] Address [address] [place] [address] Phone Care Team Providers Care Coffee Roaster Helper Name Role Phone Aretha Bain NP Primary Care Provider [phone] Encounter Details Date Type Department Care Team (Late Contact Info) Description 08/12/2023 Documentation Only [facility] [address] [place] [phone] Marian Alicia MD [address] [place] [address] Social History Tobacco Use Types Packs/Day Years [...] Visit [facility] [address] [place] [phone] Jamison Avila MD [address] [place] [address] [place] [address] documented as of this encounter Visit Diagnoses Not on filedocumented in this encounter Care Teams Coffee Roaster Helper Relationship Specialty Start Date End Date Aretha Bain NP [address] [place] [address] 1 [place] [address] PCP - General Nurse Practitioner 04/12/25 documented as of this encounter
--- OUTSIDE RECORDS SUMMARY | 2025-07-06 06:31 | XMS_ITS | Encounter Summary ---
Author Organization [facility] Address [address] [facility] [address] [place] [address] Phone Care Team Providers Care Supervisor Title Name Role Phone Demond Roger MD Unavailable [phone] FeltTianna ng MD Unavailable [phone] Yasmeen Ward MD Unavailable [email or web address] Meghna Parson MD Primary Care Provi vipin Madalyn Rogers MD Primary Care Provide r Meghna Parson MD Primary Care Provi vipin Macho Vincent DO Unavailable [phone] Camila Nayak RETAIL SHIFT SUPERVISOR Unavailable Mile Reynolds SLEEP TECHNICIAN Unavailable Marian Alicia MD Primary Care Provider [phone] Encounter Details Date Type Department Care Team (Latest Contact Info) Description 05/29/2018 Transcribe Orders [facility] Specimen Processing [address] [place] [address] London Obregon MD [address] [facility] [address] [place], [place] [phone] [email or web address] Urinary tract infection without hematuria, site [...] EDT) Specimen Source/ Description URINE URINE URINE [employer] [facility] [facility] Special Requests None [employer] [facility] GRAM STAIN NO ORGANISMS SEEN [facility] [facility] [facility] Culture/Test 10,000 to 100,000 colony forming units per ml MIXED HAYLEE (3 OR MORE COLONY TYPES) Culture indicates contamination . Please resubmit if necessary. [employer] [facility] [facility] Report Status 05/31/2018 FINAL [employer] [facility] Urine (Urine) 05/29/2018 4:3 7 PM EDT 05/29/2018 4:39 PM EDT London Obregon MD MICROBIOLOGY - GENERAL ORDERABL ES Final Result [address] [address] * (ABNORMAL) Urinalysis (05/29/2018 4:37 PM EDT) COLOR STRAW(A) Yellow [employer] [facility] CLARITY Clear [facility] [facility] [facility] GLUCOSE Negative Negative [facility] [facility] [facility] BILI Negative Negative [facility] [facility] KETONES Negative Negative [facility] [facility] SPECIFIC GRAVITY <1.005 1.005 - 1.030 [facility] [facility] BLOOD Negative Negative [facility] PH 5.5 5.0 - 8.0 [facility] [facility] Protein-UA Negative Negative [facility] [facility] NITRITE Negative Negative [facility] [facility] Leukocyte esterase, ur Negative Negative [facility] [facility] [facility] Urine (Urine) 05/29/2018 4:3 7 PM EDT 05/29/2018 4:39 PM EDT London Obregon MD URINE ORDERABLES Final Result Performing Organization Address City/State/[facility] Co de Phone Number [facility] [facility] [facility] [address] [place] [address] documented in this encounter Visit Diagnoses Diagnosis [...] as of this encounter Care Teams Supervisor Title Relationship Specialty Start Date End Date Meghna Parson MD [email or web address] PCP - General Internal Medicine 08/19/17 11/29/19 Madalyn Rogers MD [address] [place] [address] PCP - General 11/30/19 12/30/20 Meghna Parson MD [email or web address] PCP - General Internal Medicine 12/31/20 01/04/22 Marian Alicia MD [address] [place] [address] 7 [place] [address] PCP - General Family Medicine 01/05/22 Demond Roger MD [address] [place] [address] [email or web address] Historical LMR Provider 02/24/15 10/21/21 Tianna Coello MD [address] [place] [address] [email or web address] Historical LMR Provider 02/24/15 10/21/21 Yasmeen Ward MD [email or web address] Historical LMR Provider 02/24/1510/21 Macho Vincent DO [address] [place] [address] [email or web address] Primary Oncologist Hematology and Oncology 09/13/21 Camila Nayak FNP [address] [place] [address] Nurse Practitioner Medical Oncology 11/03/21 Mile Reynlods CNP [address] [place] [address] [email or web address] Nurse Practitioner Medical Oncology 11/03/21 documented as of this encounter Additional Source Comments The information contained in this document represents components of the legal health record. It is not the complete legal health record.[facility]
--- OUTSIDE RECORDS SUMMARY | 2025-07-06 06:31 | XMS_ITS | Encounter Summary ---
Author Organization [facility] Address [address] [facility] [address] [place] [address] Phone Care Team Providers Care Rodding Machine Tender Name Role Phone Demond Roger MD Unavailable [phone] FeltTianna ng MD Unavailable [phone] Yasmeen Ward MD Unavailable [email or web address] Meghna Parson MD Primary Care Provi vipin Madalyn Rogers MD Primary Care Provide r Meghna Parson MD Primary Care Provi vipin Macho Vincent DO Unavailable [phone] Camila Nayak CONTACT ACID PLANT OPERATOR HELPER Unavailable [phone] Reynolds DIVISION MANAGER Unavailable Marian Alicia MD Primary Care Provider [phone] Encounter Details Date Type Department Care Team (Late st Contact Info) Description 05/29/2018 Ancillary Orders [facility], X-Ray - [address] [address] Sabas[address] MD [address] [facility] [address] [place], [place] [id number] [email or web address] Pain Social History Tobacco Use Types Packs/Day [...] documented as of this encounter Care Teams Rodding Machine Tender Relationship Specialty Start Date End Date Meghna Parson MD [email or web address] PCP - General Internal Medicine 08/19/17 11/29/19 Madalyn Rogers MD [address] [place] [address] PCP - General 11/30/19 12/30/20 Meghna Parson MD [email or web address] PCP - General Internal Medicine 12/31/20 01/04/22 Marian Alicia MD [address] [place] [address] [email or web address] PCP - General Family Medicine 01/05/22 Demond Roger MD [address] [place] [address] [email or web address] Historical LMR Provider 02/24/15 10/21/21 Tianna Coello MD [address] [place] [address] [email or web address] Historical LMR Provider 02/24/15 10/21/21 Yasmeen Ward MD [email or web address] Historical LMR Provider 02/24/1510/21 Macho Vincent DO [address] [place] [address] [email or web address] Primary Oncologist Hematology and Oncology 09/13/21 Camila Nayak FNP [address] [place] [address] [email or web address] Nurse Practitioner Medical Oncology 11/03/21 Mile Reynolds CNP [address] [place] [address] [email or web address] Nurse Practitioner Medical Oncology 11/03/21 documented as of this encounter Additional Source Comments The information contained in this document represents components of the legal health record. It is not the complete legal health record.[facility]
--- OUTSIDE RECORDS SUMMARY | 2025-07-06 06:31 | XMS_ITS | Encounter Summary ---
Author Organization [facility] Address [address] [facility] [address] [place] [address] Phone Care Team Providers Care Making Line Worker Name Role Phone Demond Roger MD Unavailable [phone] FeltmateTianna MD Unavailable [phone] Yasmeen Ward MD Unavailable [email or web address] Meghna Parson MD Primary Care Provi vipin CarltonMacho gary W DO Unavailable Camila Nayak SUPPORT TEAM MEMBER Unavailable GailTristanen EIGHT SECTION BLOWER Unavailable Marian Alicia MD Primary Care Provider [phone] Encounter Details Date Type Department Care Team (Late st Contact Info) Description 10/04/2021 Transcribe Orders Virtual Department 30 [place] [address] Meghna Parson MD [address] [place], [place] [id number] [email or web address] Low back pain, unspecified back pain laterality, [...] documented as of this encounter Care Teams Making Line Worker Relationship Specialty Start Date End Date Meghna Parson MD [email or web address] PCP - General Internal Medicine 12/31/20 01/04/22 Marian Alicia MD [address] [place] [address], [address] [place] [address] [email or web address] PCP - General Family Medicine 01/05/22 Demond Roger MD [address] [place] [address] [email or web address] Historical LMR Provider 02/24/15 10/21/21 Tianna Coello MD [address] [place] [address] [email or web address] Historical LMR Provider 02/24/15 10/21/21 Yasmeen Ward MD [email or web address] Historical LMR Provider 02/24/1510/21 Macho Vincent DO [address] [place] [address] [email or web address] Primary Oncologist Hematology and Oncology 09/13/21 Camila Nayak FNP [address] [place] [address] [email or web address] Nurse Practitioner Medical Oncology 11/03/21 Mile Reynolds CNP [address] [place] [address] [email or web address] Nurse Practitioner Medical Oncology 11/03/21 documented as of this encounter Additional Source Comments The information contained in this document represents components of the legal health record. It is not the complete legal health record.[facility]
--- OUTSIDE RECORDS SUMMARY | 2025-07-06 06:31 | XMS_ITS | Encounter Summary ---
Author Organization [facility] Address [address] [facility] [address] [place] [address] Phone Care Team Providers Care Drapery Cutter Machine Name Role Phone Demond Roger MD Unavailable [phone] FeltTianna ng MD Unavailable [phone] Yasmeen Ward MD Unavailable [email or web address] Meghna Parson MD Primary Care Provi vipin Madlayn Rogers MD Primary Care Provide r Meghan Parson MD Primary Care Provi vipin Macho Vincent DO Unavailable [phone] Camila Nayak TOWER OPERATOR Unavailable Mile Reynolds AVIATION TECHNICAL SYSTEMS SPECIALIST Unavailable Marian Alicia MD Primary Care Provider [phone] Encounter Details Date Type Department Care Team (Late st Contact Info) Description 12/10/2018 Ancillary Orders [facility], X-Ray - [address] [address] Meghna Parson MD [address] [place], [place] [phone] [email or web address] Social History Tobacco Use Types Packs/Day [...] joints. Facet arthritic changes notable L3 through [id number]. IMPRESSION: No evidence for acute fracture. Degenerative [...] joints. Facet arthritic changes notable L3 through [id number]. IMPRESSION: No evidence for acute fracture. Degenerative [...] documented as of this encounter Care Teams Drapery Cutter Machine Relationship Specialty Start Date End Date Meghna Parson MD [email or web address] PCP - General Internal Medicine 08/19/17 11/29/19 Madalyn Rogers MD [address] [place] [address] PCP - General 11/30/19 12/30/20 Meghna Parson MD [email or web address] PCP - General Internal Medicine 12/31/20 01/04/22 Marian Alicia MD [address] [place] [address], [address] [place] [address] [email or web address] PCP - General Family Medicine 01/05/22 Demond Roger MD [address] [place] [address] [email or web address] Historical LMR Provider 02/24/15 10/21/21 Tianna Coello MD [address] [place] [address] [email or web address] Historical LMR Provider 02/24/15 10/21/21 Yasmeen Ward MD [email or web address] Historical LMR Provider 02/24/1510/21 Macho Vincent DO [address] [place] [address] [email or web address] Primary Oncologist Hematology and Oncology 09/13/21 Camila Nayak FNP [address] [place] [address] [email or web address] Nurse Practitioner Medical Oncology 11/03/21 Mile Reynolds CNP [address] [place] [address] [email or web address] Nurse Practitioner Medical Oncology 11/03/21 documented as of this encounter Additional Source Comments The information contained in this document represents components of the legal health record. It is not the complete legal health record.[facility]
--- OUTSIDE RECORDS SUMMARY | 2025-07-06 06:32 | XMS_ITS | Encounter Summary ---
Author Organization [facility] Address [address] [facility] [address] [place] [address] Phone Care Team Providers Care Threshing Machine Operator Name Role Phone Demond Roger MD Unavailable [phone] FeltTianna ng MD Unavailable [phone] Yasmeen Ward MD Unavailable [email or web address] Meghna Parson MD Primary Care Provi vipin Madalyn Rogers MD Primary Care Provide r Meghna Parson MD Primary Care Provi vipin Macho Vincent DO Unavailable Camila Nayak ROOF FIXER Unavailable Mile Reynolds PROPOSAL DEVELOPMENT MANAGER Unavailable Marian Alicia MD Primary Care Provider [phone] Encounter Details Date Type Department Care Team (Late st Contact Info) Description 11/12/2019 Ancillary Orders Virtual Department 30 [place] [address] Meghna Parson MD [address] [place], [place] [phone] [email or web address] Multinodular goiter Social History Tobacco Use Types [...] aspiration recommended per ACR TI-RADS. POS - [id number] Narrative 11/30/2019 2:44 PM EST THYROID ULTRASOUND [...] aspiration recommended per ACR TI-RADS. POS - [id number] us Meghna Parson MD IMG US THYROID [...] documented as of this encounter Care Teams Threshing Machine Operator Relationship Specialty Start Date End Date Meghna Parson MD [email or web address] PCP - General Internal Medicine 08/19/17 11/29/19 Madalyn Rogers MD [address] [place] [address] PCP - General 11/30/19 12/30/20 Meghna Parson MD [email or web address] PCP - General Internal Medicine 12/31/20 01/04/22 Marian Alicia MD [address] [place] [address], [address] [place] [address] [email or web address] PCP - General Family Medicine 01/05/22 Demond Roger MD [address] [place] [address] [email or web address] Historical LMR Provider 02/24/15 10/21/21 Tianna Coello MD [address] [place] [address] [email or web address] Historical LMR Provider 02/24/15 10/21/21 Yasmeen Ward MD [email or web address] Historical LMR Provider 02/24/1510/21 Macho Vincent DO [address] [place] [address] [email or web address]. [facility] Primary Oncologist Hematology and Oncology 09/13/21 Camila Nayak FNP [address] [place] [place] [address] [email or web address] Nurse Practitioner Medical Oncology 11/03/21 Mile Reynolds CNP [address] [place] [place] [address] [email or web address] Nurse Practitioner Medical Oncology 11/03/21 documented as of this encounter Additional Source Comments The information contained in this document represents components of the legal health record. It is not the complete legal health record.[facility]
--- OUTSIDE RECORDS SUMMARY | 2025-07-06 06:32 | XMS_ITS | Encounter Summary ---
Author Organization [facility] Address [address] [facility] [address] [place] [address] Phone Care Team Providers Care Customer Operations Associate Name Role Phone Dell Chiang MD Primary Care Provider [phone] Demond Roger MD Unavailable [phone] FeltTianna ng MD Unavailable [phone] Yasmeen Ward MD Unavailable [email or web address] Meghna Parson MD Primary Care Provi vipin Madalyn Rogers MD Primary Care Provide r Meghna Parson MD Primary Care Provi vipin Macho Vincent DO Unavailable [phone] Camila Nayak SAS STATISTICAL PROGRAMMER Unavailable Mile Reynolds FOOD QUALITY TECHNICIAN Unavailable Marian Alicia MD Primary Care Provider [phone] Encounter Details Date Type Department Care Team (Late st Contact Info) Description 08/05/2017 Transcribe Orders [facility] [address] [place] [address] Steven Trinidad DO [address] [facility], [address] [place] [address] [phone] (work) [email or web address] Severe persistent asthma, unspecified whether complicated (Primary [...] documented as of this encounter Care Teams Customer Operations Associate Relationship Specialty Start Date End Date Dell Chiang MD [address] [facility] [address] [place] [address] PCP - General 02/18/15 08/18/17 Meghna Parson MD [email or web address] PCP - General Internal Medicine 08/19/17 11/29/19 Madalyn Rogers MD [address] [place] [address] PCP - General 11/30/19 12/30/20 Meghna Parson MD [email or web address] PCP - General Internal Medicine 12/31/20 01/04/22 Marian Alicia MD [address] [place] [address], [address] [place] [address] [email or web address] PCP - General Family Medicine 01/05/22 Demond Roger MD [address] [place] [address] [email or web address] Historical LMR Provider 02/24/15 10/21/21 Tianna Coello MD [address] [place] [address] [email or web address] Historical LMR Provider 02/24/15 10/21/21 Yasmeen Ward MD [email or web address] Historical LMR Provider 02/24/1510/21 Macho Vincent DO [address] [place] [address] [email or web address] Primary Oncologist Hematology and Oncology 09/13/21 Camila Nayak FNP [address] [place] [address] [email or web address] Nurse Practitioner Medical Oncology 11/03/21 Mile Reynolds CNP [address] [place] [address] [email or web address] Nurse Practitioner Medical Oncology 11/03/21 documented as of this encounter Additional Source Comments The information contained in this document represents components of the legal health record. It is not the complete legal health record.[facility]
--- OUTSIDE RECORDS SUMMARY | 2025-07-06 06:32 | XMS_ITS | Encounter Summary ---
Author Organization [facility] Address [address] [facility] [address] [place] [address] Phone Care Team Providers Care Trucker Name Role Phone Demond Roger MD Unavailable [phone] FeltmateTianna MD Unavailable [phone] Yasmeen Ward MD Unavailable [email or web address] Meghna Parson MD Primary Care Provi vipin CarltonMacho gary W DO Unavailable [phone] Camila Nayak [employer] Unavailable [phone] GailTristanen NURSE GENERAL DUTY Unavailable Marian Alicia MD Primary Care Provider [phone] Encounter Details Date Type Department Care Team (Late st Contact Info) Description 10/10/2021 Ancillary Orders Virtual Department 30 [place] [address] Meghna Parson MD [address] [place], [place] [phone] [email or web address] Low back pain, unspecified back pain laterality, [...] documented as of this encounter Care Teams Trucker Relationship Specialty Start Date End Date Meghna Parson MD [email or web address] PCP - General Internal Medicine 12/31/20 01/04/22 Marian Alicia MD [address] [place] [address] [address] [place] [address] [email or web address] PCP - General Family Medicine 01/05/22 Demond Roger MD [address] [place] [address] [email or web address] Historical LMR Provider 02/24/15 10/21/21 Tianna Coello MD [address] [place] [address] [email or web address] Historical LMR Provider 02/24/15 10/21/21 Yasmeen Ward MD [email or web address].[facility] Historical LMR Provider 02/24/1510/21 Macho Vincent DO 30 [place] [address] [email or web address] Primary Oncologist Hematology and Oncology 09/13/21 Camila Nayak FNP [address] [place] [address] [email or web address] Nurse Practitioner Medical Oncology 11/03/21 Mile Reynolds CNP [address] [place] [address] [email or web address] Nurse Practitioner Medical Oncology 11/03/21 documented as of this encounter Additional Source Comments The information contained in this document represents components of the legal health record. It is not the complete legal health record.[facility]
--- OUTSIDE RECORDS SUMMARY | 2025-07-06 06:32 | XMS_ITS | Encounter Summary ---
Author Organization [facility] Address [address] [facility] [address] [place] [address] Phone Care Team Providers Care Job Placement Specialist Name Role Phone Demond Roger MD Unavailable [phone] FeltTianna ng MD Unavailable [phone] Yasmeen Ward MD Unavailable [email or web address] Meghna Parson MD Primary Care Provi vipin Madalyn Rogers MD Primary Care Provide r Meghna Parson MD Primary Care Provi vipin Macho Vincent DO Unavailable [phone] Camila Nayak FORECLOSURE CLERK Unavailable Mile Reynolds SURGERY ASSISTANT Unavailable Marian Alicia MD Primary Care Provider [phone] Encounter Details Date Type Department Care Team (Latest Contact Info) Description 03/04/2018 Transcribe Orders [facility] Laboratory [address] [place] [address] SabasLondon MD [address] [facility] [address] [place], [place] [phone] [email or web address] Dyspnea, unspecified type (Primary Dx) Social [...] AM EDT) D-DIMER <215 <500 ng/mL [facility] Comment:In patients with low to moderate pre-test probability scores for VTE (PE or DVT), a D-Dimer cut-off less than 500 ng/mL ([facility]) has a negative predictive value (NPV) of 97 to 100%. Blood 03/04/2018 11:3 1 AM EDT 03/04/2018 11:33 AM EDT London Obregon MD LAB BLOOD ORDERABLES Final Resu lt Performing Organization Address City/State/[facility] Co de Phone Number [address] [address] documented in this encounter Visit Diagnoses Diagnosis Dyspnea, unspecified type- Primary documented in this encounter Additional Health Concerns Infection Onset Date Last Indicated Resolved Time CoV-Exposed Comment:Recent close contact documented in the COVID-19 PCR/PRO order 09/25/2021 10/03/2021 10/10/2021 1:[address] CoV-Presumed 10/09/2022 10/09/2022 10/30/2022 1:21 AM EST CoV-Risk 03/01/2023 03/01/2023 03/12/2023 1:22 AM EDT documented as of this encounter Care Teams Job Placement Specialist Relationship Specialty Start Date End Date Meghna Parson MD [email or web address] PCP - General Internal Medicine 08/19/17 11/29/19 Madalyn Rogers MD [address] [place] [address] PCP - General 11/30/19 12/30/20 Meghna Parson MD [email or web address] PCP - General Internal Medicine 12/31/20 01/04/22 Marian Alicia MD [address] [place] [address] [email or web address] PCP - General Family Medicine 01/05/22 Demond Roger MD [address] [place] [address] [email or web address] Historical LMR Provider 02/24/15 10/21/21 Tianna Coello MD [address] [place] [address] [email or web address] Historical LMR Provider 02/24/15 10/21/21 Yasmeen Ward MD [email or web address].[facility] Historical LMR Provider 02/24/1510/21 Macho Vincent DO [address] [place] [address] [email or web address]. [facility] Primary Oncologist Hematology and Oncology 09/13/21 Camila Nayak FNP [address] [place] [address] [email or web address] Nurse Practitioner Medical Oncology 11/03/21 Mile Reynolds CNP [address] [place] [address] [email or web address] Nurse Practitioner Medical Oncology 11/03/21 documented as of this encounter Additional Source Comments The information contained in this document represents components of the legal health record. It is not the complete legal health record.[facility]
--- OUTSIDE RECORDS SUMMARY | 2025-07-06 06:32 | XMS_ITS | Encounter Summary ---
Author Organization [facility] Address [address] [address] Phone Care Team Providers Care Physical Therapy Coordinator Name Role Phone Meghna Parson MD Primary Care Provi vipin Macho Vincent W DO Unavailable [phone] Camila Nayak ON SITE CONSTRUCTION SUPERINTENDENT Unavailable [phone], Mile POLICE AND FIRE DISPATCHER Unavailable Marian Alicia MD Primary Care Provider [phone] Encounter Details Date Type Department Care Team (Late st Contact Info) Description 11/07/2021 Ancillary Orders [facility],Outside Imaging [address] [place], [place] [phone] System, Provider Not In, [place] [address] Social History Tobacco Use Types Packs/Day Years [...] documented as of this encounter Care Teams Physical Therapy Coordinator Relationship Specialty Start Date End Date Meghna Parson MD [email or web address] PCP - General Internal Medicine 12/31/20 01/04/22 Marian Alicia MD [address] [place] [address], [address] [place] [address] [email or web address] PCP - General Family Medicine 01/05/22 Macho Vincent DO [address] [place] [address] [email or web address].[email or web address] Primary Oncologist Hematology and Oncology 09/13/21 Camila Nayak FNP [address] [place] [address] [email or web address] Nurse Practitioner Medical Oncology 11/03/21 Mile Reynolds CNP [address] [place] [address] Nurse Practitioner Medical Oncology 11/03/21 documented as of this encounter Additional Source Comments The information contained in this document represents components of the legal health record. It is not the complete legal health record.[facility]
--- OUTSIDE RECORDS SUMMARY | 2025-07-06 06:32 | XMS_ITS | Encounter Summary ---
Author Organization [facility] Address [address] [facility] [address] [place] [address] Phone Care Team Providers Care Psych Rn Name Role Phone Dell Chiang MD Primary Care Provider [phone] Demond Roger MD Unavailable [phone] FeltTianna ng MD Unavailable [phone] Yasmeen Ward MD Unavailable [email or web address] Meghna Parson MD Primary Care Provi vipin Madalyn Rogers MD Primary Care Provide r Meghna Parson MD Primary Care Provi vipin Macho Vincent W DO Unavailable Camila Nayak WEB DEVELOPMENT MANAGER Unavailable [phone] Reynolds RN ONCOLOGY RESEARCH Unavailable Marian Alicia MD Primary Care Provider [phone] Encounter Details Date Type Department Care Team (Late st Contact Info) Description 08/04/2017 Ancillary Orders [address] [address] Meghna Parson MD [address] [place] [address] [email or web address] Social History Tobacco Use Types Packs/Day Years [...] documented as of this encounter Care Teams Psych Rn Relationship Specialty Start Date End Date Dell Chiang MD [address] [facility] [address] [place] [address] PCP - General 02/18/15 08/18/17 Meghna Parson MD [email or web address] PCP - General Internal Medicine 08/19/17 11/29/19 Madalyn Rogers MD [address] [place] [address] PCP - General 11/30/19 12/30/20 Meghna Parson MD [email or web address] PCP - General Internal Medicine 12/31/20 01/04/22 Marian Alicia MD [address] [place] [address], [address] [place] [address] [email or web address] PCP - General Family Medicine 01/05/22 Demond Roger MD [address] [place] [address] [email or web address] Historical LMR Provider 02/24/15 10/21/21 Tianna Coello MD [address] [place] [address] [email or web address] Historical LMR Provider 02/24/15 10/21/21 Yasmeen Ward MD [email or web address] Historical LMR Provider 02/24/1510/21 Macho Vincent DO [address] [place] [address] [email or web address] Primary Oncologist Hematology and Oncology 09/13/21 Camila Nayak FNP [address] [place] [address] [email or web address] Nurse Practitioner Medical Oncology 11/03/21 Mile Reynolds CNP [address] [place] [address] [email or web address] Nurse Practitioner Medical Oncology 11/03/21 documented as of this encounter Additional Source Comments The information contained in this document represents components of the legal health record. It is not the complete legal health record.[facility]
--- OUTSIDE RECORDS SUMMARY | 2025-07-06 06:32 | XMS_ITS | Clinical Summary ---
Author Organization [facility] Address [address] [address] Phone Care Team Providers Care Drill Sergeant Name Role Phone Macho Vincent DO Unavailable [phone] Camila Nayak MONTESSORI PRESCHOOL TEACHER Unavailable [phone] [employer]Mile EDITORIAL INTERN Unavailable Marian Alicia MD Primary Care Provider [phone] Allergies Active Allergy Reactions Criticality Noted Date [...] a history of DVTs. She has a [place] filter in place and she is also [...] fitting for new mask. Input referral to [facility] sleep med. Assessment & Plan (04/02/2018 [...] or concerns. She understands and agrees. 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 Assessment & Plan (04/17/2022 9:27 AM EDT): [...] staff to obtain images and records from [facility] and plan to review them once available. [...] Type Department Care Team Description 06/03/2025 Telephone [employer] [facility] General Surgical Care [address] [place] [...] Gets the flu shot elsewhere., Ordered By: [id number]) Pneumococcal polysaccharide PPSV23 05/25/2008, Pneumococcal, Unspecified Formulation [...] (07/27/2023 8:13 AM EDT) HDL 56 mg/dL [facility] Comment: Interpretation <40 mg/dL: Low HDL cholesterol (major risk factor for CHD) Greater than or equal to 60 mg/dL: High HDL cholesterol ( negative risk factor for CHD) HDL - cholesterol is affected by a number of factors, e.g. smoking, excerise, hormones, sex and age. CHOLESTEROL 271(H) 0 - 240 mg/dL [facility] TRIGLYCERIDES 193(H) 30 - 160 mg/dL [facility] LDL 176(H) 50 - 129 mg/dL [facility] Comment: LDL levels in terms of risk for coronary heart disease: <100 mg/dL: Optimal 100-129 mg/dL: Near or above optimal 130-159 mg/dL: Borderline high 160-189 mg/dL: High >190 mg/dL: Very High CARDIAC RISK RATIO 4.8(H) 3.3 - 4.4 C [facility] Blood 07/27/2023 8:13 AM EDT 07/27/2023 8:21 AM EDT us Marian Alicia MD LAB BLOOD ORDERABLES Bonnie l Result Performing Organization Address City/State/[facility] Co de Phone Number [address] [address] * BI MAMMOGRAM SCREENING WITH TOMOSYNTHESIS WITH [...] Most Recently Relevant to Health Maintenance Insurance [facility] TOGETHER M[employer] HALE [facility] TOGETHER [place] [place] [address] [place] [address] [place] [address]HER [place] [facility] TOGETHER MCO HALE [facility] Advance Directives For more information, please contact: [phone] (9AM - 5PM Estella/[facility], Saturday-Saturday) Documents on File Type Date Recorded Patient Cable Supervisor Expl anation Advance Directive - Non Epic LMR 09/13/2011 12:00 AM Care Teams Drill Sergeant Relationship Specialty Start Date End Date Marian Alicia MD [address] [place] [address], [address] [place] [address] [email or web address] PCP - General Family Medicine 01/05/22 Macho Vincent DO [address] [place] [address] [email or web address] Primary Oncologist Hematology and Oncology 09/13/21 Camila Nayak FNP [address] [place] [address] [email or web address] Nurse Practitioner Medical Oncology 11/03/21 Mile Reynolds CNP [address] [place] [address] [email or web address] Nurse Practitioner Medical Oncology 11/03/21 Additional Source Comments The information contained in this document represents components of the legal health record. It is not the complete legal health record.[facility]
--- OUTSIDE RECORDS SUMMARY | 2025-07-06 06:32 | XMS_ITS | Encounter Summary ---
Author Organization [facility] Address [address] [facility] [address] [address] Phone Care Team Providers Care Manufacturer Representative Name Role Phone Meghna Parson MD Primary Care Provi vipin Macho Vincent W DO Unavailable [phone] Camila Nayak LEARNING MANAGER Unavailable [phone] Pack, Mile BEADER TENDER Unavailable Marian Alicia MD Primary Care Provider [phone] Encounter Details Date Type Department Care Team (Late st Contact Info) Description 11/07/2021 Ancillary Orders [facility],Outside Imaging [address] [place], [place] [id number] System, Provider Not In, [place] [address] Social History Tobacco Use Types Packs/Day Years [...] documented as of this encounter Care Teams Manufacturer Representative Relationship Specialty Start Date End Date Meghna Parson MD [email or web address] PCP - General Internal Medicine 12/31/20 01/04/22 Marian Alicia MD [address] [place] [address], [address] [place] [address] [email or web address] PCP - General Family Medicine 01/05/22 Macho Vincent DO [address] [place] [address] [email or web address] Primary Oncologist Hematology and Oncology 09/13/21 Camila Nayak FNP [address] [place] [address] [email or web address] Nurse Practitioner Medical Oncology 11/03/21 Mile Reynolds CNP [address] [place] [address] Nurse Practitioner Medical Oncology 11/03/21 documented as of this encounter Additional Source Comments The information contained in this document represents components of the legal health record. It is not the complete legal health record.[facility]
--- OUTSIDE RECORDS SUMMARY | 2025-07-06 06:32 | XMS_ITS | Encounter Summary ---
Author Organization [facility] Address [address] [employer] [address] [address] Phone Care Team Providers Care Residential Remodeling Subcontractor Name Role Phone Meghna Parson MD Primary Care Provi vipin Macho Vincent W DO Unavailable [phone] Camila Nayak CITY ROUTE DRIVER Unavailable [phone] TAR LEVELER Unavailable Marian Alicia MD Primary Care Provider [phone] Encounter Details Date Type Department Care Team (Late st Contact Info) Description 11/07/2021 Ancillary Orders [facility],Outside Imaging [address] [place], [place] [id number] System, Provider Not In, [place] [address] Social History Tobacco Use Types Packs/Day Years [...] documented as of this encounter Care Teams Residential Remodeling Subcontractor Relationship Specialty Start Date End Date Meghna Parson MD [email or web address] PCP - General Internal Medicine 12/31/20 01/04/22 Marian Alicia MD [address] [place] [address], [address] [place] [address] [email or web address] PCP - General Family Medicine 01/05/22 Macho Vincent DO [address] [place] [address] [email or web address] Primary Oncologist Hematology and Oncology 09/13/21 Camila Nayak FNP [address] [place] [address] [email or web address] Nurse Practitioner Medical Oncology 11/03/21 Mile Reynolds CNP [address] [place] [address] Nurse Practitioner Medical Oncology 11/03/21 documented as of this encounter Additional Source Comments The information contained in this document represents components of the legal health record. It is not the complete legal health record.[facility]
--- OUTSIDE RECORDS SUMMARY | 2025-07-06 06:32 | XMS_ITS | Encounter Summary ---
Author Organization [facility] Address [address] [facility] [address] [place] [address] Phone Care Team Providers Care Finding Fastener Name Role Phone Demond Roger MD Unavailable [phone] FeltTianna ng MD Unavailable [phone] Yasmeen Ward MD Unavailable [email or web address] Meghna Parson MD Primary Care Provi vipin Madalyn Rogers MD Primary Care Provide r Meghna Parson MD Primary Care Provi vipin Macho Vincent DO Unavailable [phone] Camila Nayak MOVIE MACHINE OPERATOR Unavailable [phone] Reynolds PECAN SHELLER Unavailable Marian Alicia MD Primary Care Provider [phone] Encounter Details Date Type Department Care Team (Late st Contact Info) Description 02/13/2018 Transcribe Orders [facility] Laboratory [address] [place] [address] Meghna Parson MD [address] [place], [place] [id number] [email or web address] Fatigue, unspecified type (Primary Dx) Social History [...] VITAMIN B12 410 232 - 1,245 pg/mL [facility] Comment:The reference range had been changed on January 24, 2018 from 243 - 894pg/mL to 232 - 1245 pg/mL. Blood 02/13/2018 10:0 8 AM EDT 02/13/2018 10:14 AM EDT us Meghna Parson MD LAB BLOOD ORDERABLE S Final Result [address] [address] * Iron and iron binding capacity (02/13/2018 10:08 AM EDT) IRON 70 30 - 160 ug/dL [facility] IRON BINDING CAPACITY 229 228 - 428 ug/dL [facility] TRANSFERRIN SATURAT. 31 15 - 50 % [facility] Blood 02/13/2018 10:0 8 AM EDT 02/13/2018 10:14 AM EDT us Meghna Parson MD LAB BLOOD ORDERABLE S Final Result Performing Organization Address City/[facility]/ZIP Co de Phone Number [address] [address] * (ABNORMAL) Ferritin (02/13/2018 10:08 AM EDT) FERRITIN 154(H) 13 - 150 ug/L [facility] Blood 02/13/2018 10:0 8 AM EDT 02/13/2018 10:14 AM EDT Meghna Parson MD LAB BLOOD ORDERABLE S Final Result Performing Organization Address City/[facility]/ZIP Co de Phone Number [address] [address] * CPK (creatine kinase) (02/13/2018 10:08 AM EDT) CREATINE KINASE 173 21 - 215 U/L [facility] Blood 02/13/2018 10:0 8 AM EDT 02/13/2018 10:14 AM EDT Meghna Parson MD LAB BLOOD ORDERABLE S Final Result Performing Organization Address [facility] Co de Phone Number [address] [address] * TSH with reflex (02/13/2018 10:08 AM EDT) TSH 1.69 0.27 - 4.20 uIU/mL [facility] Blood 02/13/2018 10:0 8 AM EDT 02/13/2018 10:14 AM EDT Meghna Parson MD LAB BLOOD ORDERABLE S Final Result Performing Organization Address City/[facility] Co de Phone Number [address] [address] * CBC and differential (02/13/2018 10:08 AM EDT) WBC 7.06 3.40 - 11.20 K/uL [facility] RBC 4.79 3.80 - 4.80 M/uL [facility] HGB 14.2 12.0 - 15.0 g/dL [facility] HCT 43.5 36.0 - 46.0 % [facility] PLT 262 130 - 400 K/uL [facility] MCV 90.8 79.0 - 98.0 fL [facility] MCH 29.6 27.0 - 34.8 pg [facility] MCHC 32.6 31.5 - 36.0 g/dL [facility] RDW 12.8 10.8 - 14.6 % [facility] MPV 9.8 9.4 - 12.4 fl [facility] NRBC 0.00 /100 WBCs [facility] ABSOLUTE NRBC 0.00 K/uL [facility] DIFF METHOD Auto [facility] NEUTS 55.8 45.30 - 77.70 % [facility] LYMPHS 32.7 12.30 - 39.70 % [facility] MONOS 8.4 4.10 - 12.80 % [facility] EOS 2.1 0 - 7.2 % [facility] BASOS 0.4 0 - 2.80 % [facility] Granulocytes, immature (%) 0.6 0.0 - 0.9 % [facility] ABSOLUTE NEUTS 3.94 1.40 - 7.70 K/uL [facility] ABSOLUTE LYMPHS 2.31 0.60 - 3.20 K/uL [facility] ABSOLUTE MONOS 0.59 0.11 - 0.59 K/uL [facility] ABSOLUTE EOS 0.15 0.01 - 0.50 K/uL [facility] ABSOLUTE BASOS 0.03 0.00 - 0.08 K/uL [facility] Granulocytes, immature 0.04 0.00 - 0.05 K/uL [facility] Blood 02/13/2018 10:0 8 AM EDT 02/13/2018 10:14 AM EDT us Meghna Parson MD LAB BLOOD ORDERABLE S Final Result [facility] [address] [place] [address] * (ABNORMAL) Comprehensive metabolic panel (02/13/2018 10:08 AM EDT) Pathologist [facility] SODIUM 146 133 - 146 mmol/L [facility] POTASSIUM 4.2 3.3 - 5.1 mmol/L [facility] CHLORIDE 106 96 - 108 mmol/L [facility] CO2 27 21 - 35 mmol/L [facility] BUN 17 6 - 19 mg/dL [facility] CREATININE 1.00 0.5 - 1.5 mg/dL [facility] GLUCOSE 69(L) 70 - 99 mg/dL [facility] ALBUMIN 3.9 3.9 - 4.8 g/dL [facility] TOTAL PROTEIN 6.4(L) 6.5 - 8.0 g/dL [facility] CALCIUM 9.3 8.4 - 10.3 mg/dL [facility] ALKALINE PHOSPHATASE 77 39 - 117 U/L [facility] TOTAL BILIRUBIN 0.3 0.0 - 1.2 mg/dL [facility] AST 21 0 - 37 U/L [facility] ALT 13 0 - 40 U/L [facility] GLOBULIN 2.5 1 - 4.8 g/dL [facility] EGFR 65 >59 mL/min/1.7 3m2 [facility] Comment:If patient is black, multiply result by 1.159. The eGFR calculation has changed from the MDRD equation to the CKD-EPI equation as of December 17, 2017. ANION GAP 17 10 - 20 mmol/L [facility] Blood 02/13/2018 10:0 8 AM EDT 02/13/2018 10:14 AM EDT us Meghna Parson MD LAB BLOOD ORDERABLE S Final Result [address] [address] documented in this encounter Visit Diagnoses Diagnosis Fatigue, unspecified type- Primary documented in this encounter Additional Health Concerns Infection Onset Date Last Indicated Resolved Time CoV-Exposed Comment:Recent close contact documented in the COVID-19 PCR/PRO order 09/25/2021 10/03/2021 10/10/2021 1:[address] CoV-Presumed 10/09/2022 10/09/2022 10/30/2022 1:21 AM EST CoV-Risk 03/01/2023 03/01/2023 03/12/2023 1:22 AM EDT documented as of this encounter Care Teams Finding Fastener Relationship Specialty Start Date End Date Meghna Parson MD [email or web address] PCP - General Internal Medicine 08/19/17 11/29/19 Madalyn Rogers MD [address] [place] [address] PCP - General 11/30/19 12/30/20 Meghna Parson MD [email or web address] PCP - General Internal Medicine 12/31/20 01/04/22 Marain Alicia MD [address] [place] [address] [email or web address] PCP - General Family Medicine 01/05/22 Demond Roger MD [address] [place] [address] [email or web address] Historical LMR Provider 02/24/15 10/21/21 Tianna Coello MD [address] [place] [address] [email or web address] Historical LMR Provider 02/24/15 10/21/21 Yasmeen Ward MD [email or web address] Historical LMR Provider 02/24/1510/21 Macho Vincent DO [address] [place] [address] [email or web address] Primary Oncologist Hematology and Oncology 09/13/21 Camila Nayak FNP [address] [place] [address] [email or web address] Nurse Practitioner Medical Oncology 11/03/21 Mile Reynolds CNP [address] [place] [address] [email or web address] Nurse Practitioner Medical Oncology 11/03/21 documented as of this encounter Additional Source Comments The information contained in this document represents components of the legal health record. It is not the complete legal health record.[facility]
--- OUTSIDE RECORDS SUMMARY | 2025-07-06 06:32 | XMS_ITS | Encounter Summary ---
Author Organization [facility] Address [address] [place] [address] Phone Care Team Providers Care Wire Frame Lampshade Maker Name Role Phone Macho Vincent DO Unavailable Camila Nayak BAND ATTACHER Unavailable [phone] [employer]ristan[employer] CHILD NURSE Unavailable Marian Alicia MD Primary Care Provider [phone] Encounter Details Date Type Department Care Team (Late st Contact Info) Description 03/01/2023 Procedure Pass [facility], Ct Scan - [address] [address] Social History Tobacco Use Types Packs/Day Years [...] high school, GED, job training, learning the [place] language, technical skills, or developing parenting skills)? [...] 3:51 PM EDT Yanick Gonzales, ZOEY * [place] Suicide Severity Rating Scale (Screener/Recent Self-Report) Question [...] documented as of this encounter Care Teams Wire Frame Lampshade Maker Relationship Specialty Start Date End Date Marian Alicia MD [address] [place] [address], [address] [place] [address] [email or web address] PCP - General Family Medicine 01/05/22 Macho Vincent DO [address] [place] [address] [email or web address] Primary Oncologist Hematology and Oncology 09/13/21 Camila Nayak FNP [address] [place] [address] [email or web address] Nurse Practitioner Medical Oncology 11/03/21 Mile Reynolds CNP [address] [place] [address] [email or web address] Nurse Practitioner Medical Oncology 11/03/21 documented as of this encounter Additional Source Comments The information contained in this document represents components of the legal health record. It is not the complete legal health record.[facility]
--- OUTSIDE RECORDS SUMMARY | 2025-07-06 06:32 | XMS_ITS | Encounter Summary ---
Author Organization [facility] Address [address] [facility] [address] [place] [address] Phone Care Team Providers Care Farm Machinery Engine Mechanic Name Role Phone Demond Roger MD Unavailable [phone] FeltTianna ng MD Unavailable [phone] Yasmeen Ward MD Unavailable [email or web address] Meghna Parson MD Primary Care Provi vipin Madalyn Rogers MD Primary Care Provide r Meghna Parson MD Primary Care Provi vipin Macho Vincent DO Unavailable Camila Nayak GENERAL INTERNAL MEDICINE PHYSICIAN Unavailable [phone] TECHNOLOGY INSTRUCTOR Unavailable Marian Alicia MD Primary Care Provider [phone] Encounter Details Date Type Department Care Team (Late st Contact Info) Description 11/12/2019 Transcribe Orders Virtual Department 30 [place] [address] Meghna Parson MD [address] [place], [place] [id number] [email or web address] Dysuria (Primary Dx) Social History Tobacco Use [...] Special Requests None 11/12/2019 6:01 PM EST [facility] GRAM STAIN NO ORGANISMS SEEN 11/13/2019 9:06 AM EST [facility] Urine Culture 10,000 to 100,000 colony forming units per mL MIXED HAYLEE (3 OR MORE COLONY TYPES) Culture indicates contamination . Please resubmit if necessary.(A) 11/14/2019 10:46 AM EST [facility] Urine (Urine) 11/12/2019 4:3 0 PM EST 11/12/2019 6:00 PM EST us Meghna Parson MD MICROBIOLOGY - GENE [facility] ORDERABLES Final Result [address] [address] * (ABNORMAL) URINALYSIS WITH SEDIMENT (11/12/2019 4:30 PM EST) WBC 0-4(A) NONE SEEN /hpf [facility] RBC NONE SEEN NONE SEEN /hpf [facility] URINE EPITHELIAL 0-4(A) NONE SEEN [facility] MUCUS Trace(A) NONE SEEN /hpf [facility] BACTERIA NONE SEEN NONE SEEN /hpf [facility] COLOR Yellow Yellow [facility] CLARITY Clear [facility] GLUCOSE Negative Negative [facility] BILI Negative Negative [facility] KETONES Negative Negative [facility] SPECIFIC GRAVITY 1.015 1.005 - 1.030 [facility] BLOOD Negative Negative [facility] PH 5.5 5.0 - 8.0 [facility] Protein-UA Negative Negative [facility] NITRITE Negative Negative [facility] Leukocyte esterase, ur Negative Negative [facility] Urine (Urine) 11/12/2019 4:3 0 PM EST 11/12/2019 6:09 PM EST us Meghna Parson MD URINE ORDERABLES Fi nal Result [facility] [address] [place] [address] documented in this encounter Visit Diagnoses Diagnosis Dysuria- Primary documented in this encounter Additional Health Concerns Infection Onset Date Last Indicated Resolved Time CoV-Exposed Comment:Recent close contact documented in the COVID-19 PCR/PRO order 09/25/2021 10/03/2021 10/10/2021 1:[address] CoV-Presumed 10/09/2022 10/09/2022 10/30/2022 1:21 AM EST CoV-Risk 03/01/2023 03/01/2023 03/12/2023 1:22 AM EDT documented as of this encounter Care Teams Farm Machinery Engine Mechanic Relationship Specialty Start Date End Date Meghna Parson MD [email or web address] PCP - General Internal Medicine 08/19/17 11/29/19 Madalyn Rogers MD [address] [place] [address] PCP - General 11/30/19 12/30/20 Meghna Parson MD [email or web address] PCP - General Internal Medicine 12/31/20 01/04/22 Marian Alicia MD [address] [place] [address], [address] [place] [address] [email or web address] PCP - General Family Medicine 01/05/22 Demond Roger MD [address] [place] [address] [email or web address] Historical LMR Provider 02/24/15 10/21/21 Tianna Coello MD [address] [place] [address] [email or web address] Historical LMR Provider 02/24/15 10/21/21 Yasmeen Ward MD [email or web address] Historical LMR Provider 02/24/1510/21 Macho Vincent DO [address] [place] [address] [email or web address] Primary Oncologist Hematology and Oncology 09/13/21 Camila Nayak FNP [address] [place] [address] [email or web address] Nurse Practitioner Medical Oncology 11/03/21 Mile Reynolds CNP [address] [place] [address] [email or web address] Nurse Practitioner Medical Oncology 11/03/21 documented as of this encounter Additional Source Comments The information contained in this document represents components of the legal health record. It is not the complete legal health record.[facility]
--- OUTSIDE RECORDS SUMMARY | 2025-07-06 06:32 | XMS_ITS | Encounter Summary ---
Author Organization [facility] Address [address] [facility] [address] [place] [address] Phone Care Team Providers Care Freight Car Cleaner Delta System Name Role Phone Demond Roger MD Unavailable [phone] FeltmateTianna MD Unavailable [phone] Yasmeen Ward MD Unavailable [email or web address] Mgehna Parson MD Primary Care Provi vipin CarltonMacho gary W DO Unavailable Camila Nayak COMPENSATION COORDINATOR Unavailable [phone] LEASING MANAGER Unavailable Marian Alicia MD Primary Care Provider [phone] Encounter Details Date Type Department Care Team (Late st Contact Info) Description 05/18/2021 Ancillary Orders Virtual Department 30 [place] [address] Meghna Parson MD [address] [place], [place] [phone] [email or web address] Pain and swelling of left lower leg; [...] as of this encounter Care Teams Freight Car Cleaner [employer] Relationship Specialty Start Date End Date Meghna Parson MD [email or web address] PCP - General Internal Medicine 12/31/20 01/04/22 Marian Alicia MD [address] [place] [address], [address] [place] [address] [email or web address] PCP - General Family Medicine 01/05/22 Demond Roger MD [address] [place] [address] [email or web address] Historical LMR Provider 02/24/15 10/21/21 Tianna Coello MD [address] [place] [address] [email or web address] Historical LMR Provider 02/24/15 10/21/21 Yasmeen Ward MD [email or web address] Historical LMR Provider 02/24/1510/21 Macho Vincent DO [address] [place] [address] [email or web address] Primary Oncologist Hematology and Oncology 09/13/21 Camila Nayak FNP [address] [place] [address] [email or web address] Nurse Practitioner Medical Oncology 11/03/21 Mile Reynolds CNP [address] [place] [address] [email or web address] Nurse Practitioner Medical Oncology 11/03/21 documented as of this encounter Additional Source Comments The information contained in this document represents components of the legal health record. It is not the complete legal health record.[facility]
--- OUTSIDE RECORDS SUMMARY | 2025-07-06 06:32 | XMS_ITS | Encounter Summary ---
Author Organization [facility] Address [address] [facility] [address] [place] [address] Phone Care Team Providers Care Logistics Engineer Name Role Phone Demond Roger MD Unavailable [phone] FeltTianna ng MD Unavailable [phone] Yasmeen Ward MD Unavailable [email or web address] Meghna Parson MD Primary Care Provi vipin Madalyn Rogers MD Primary Care Provide r Meghna Parson MD Primary Care Provi vipin Macho Vincent DO Unavailable Camila Nayak INSTRUMENT TECHNOLOGIST Unavailable Mile Reynolds INSURANCE ADJUSTER Unavailable Marian Alicia MD Primary Care Provider [phone] Encounter Details Date Type Department Care Team (Late st Contact Info) Description 10/24/2017 Transcribe Orders [facility] [address] [place] [address] Bairon Aparicio MD, [place] [address] [phone] [email or web address] Social History Tobacco Use Types Packs/Day Years [...] documented as of this encounter Care Teams Logistics Engineer Relationship Specialty Start Date End Date Meghna Parson MD [email or web address] PCP - General Internal Medicine 08/19/17 11/29/19 Madalyn Rogers MD [address] [place] [address] PCP - General 11/30/19 12/30/20 Meghna Parson MD [email or web address] PCP - General Internal Medicine 12/31/20 01/04/22 Marian Alicia MD [address] [place] [address], [address] [place] [address] PCP - General Family Medicine 01/05/22 Demond Roger MD [address] [place] [address] [email or web address] Historical LMR Provider 02/24/15 10/21/21 Tianna Coello MD [address] [place] [address] [email or web address] Historical LMR Provider 02/24/15 10/21/21 Yasmeen Ward MD [email or web address] Historical LMR Provider 02/24/1510/21 Macho Vincent DO [address] [place] [address] [email or web address] Primary Oncologist Hematology and Oncology 09/13/21 Camila Nayak FNP [address] [place] [address] [email or web address] Nurse Practitioner Medical Oncology 11/03/21 Mile Reynolds CNP [address] [place] [address] [email or web address] Nurse Practitioner Medical Oncology 11/03/21 documented as of this encounter Additional Source Comments The information contained in this document represents components of the legal health record. It is not the complete legal health record.[facility]
--- OUTSIDE RECORDS SUMMARY | 2025-07-06 06:32 | XMS_ITS | Encounter Summary ---
Author Organization [facility] Address [address] [facility] [address] [place] [address] Phone Care Team Providers Care Building And Grounds Supervisor Name Role Phone Dell Chiang MD Primary Care Provider [phone] Demond Roger MD Unavailable [phone] FeltTianna ng MD Unavailable [phone] Yasmeen Ward MD Unavailable [email or web address] Meghna Parson MD Primary Care Provi vipin Madalyn Rogers MD Primary Care Provide r Meghna Parson MD Primary Care Provi vipin Macho Vincent W DO Unavailable [phone] Camila Nayak PROCUREMENT BUYER Unavailable [phone] PROPERTY CONTROLLER Unavailable Marian Alicia MD Primary Care Provider [phone] Encounter Details Date Type Department Care Team (Late st Contact Info) Description 08/04/2017 Ancillary Orders [address] [address] Meghna Parson MD 6 [place] [address] [email or web address] Cystic thyroid nodule Social History Tobacco Use [...] documented as of this encounter Care Teams Building And Grounds Supervisor Relationship Specialty Start Date End Date Dell Chiang MD [address] [facility] [address] [place] [address] PCP - General 02/18/15 08/18/17 Meghna Parson MD [email or web address] PCP - General Internal Medicine 08/19/17 11/29/19 Madalyn Rogers MD [address] [place] [address] PCP - General 11/30/19 12/30/20 Meghna Parson MD [email or web address] PCP - General Internal Medicine 12/31/20 01/04/22 Marian Alicia MD [address] [place] [address] 7 [place] [address] [email or web address] PCP - General Family Medicine 01/05/22 Demond Roger MD [address] [place] [address] [email or web address] Historical LMR Provider 02/24/15 10/21/21 Tianna Coello MD [address] [place] [address] [email or web address] Historical LMR Provider 02/24/15 10/21/21 Yasmeen Ward MD [email or web address] Historical LMR Provider 02/24/1510/21 Macho Vincent DO 30 [place] [address] [email or web address] [email or web address] Primary Oncologist Hematology and Oncology 09/13/21 Camila Nayak FNP 30 [place] [address] [email or web address] Nurse Practitioner Medical Oncology 11/03/21 Mile Reynolds CNP [address] [place] [address] [email or web address] Nurse Practitioner Medical Oncology 11/03/21 documented as of this encounter Additional Source Comments The information contained in this document represents components of the legal health record. It is not the complete legal health record.[facility]
--- OUTSIDE RECORDS SUMMARY | 2025-07-06 06:32 | XMS_ITS | Encounter Summary ---
Author Organization [facility] Address [address] [facility] [address] [place] [address] Phone Care Team Providers Care Ship Design Teacher Name Role Phone Demond Roger MD Unavailable [phone] FeltTianna ng MD Unavailable [phone] Yasmeen Ward MD Unavailable [email or web address] Meghna Parson MD Primary Care Provi vipin Madalyn Rogers MD Primary Care Provide r Meghna Parson MD Primary Care Provi vipin Macoh Vincent DO Unavailable Camila Nayak ENGINE LATHE SET UP OPERATOR Unavailable [phone] CUTTER MACHINE Unavailable Marian Alicia MD Primary Care Provider [phone] Encounter Details Date Type Department Care Team (Late st Contact Info) Description 08/23/2017 Transcribe Orders [facility] Laboratory 30 [place] [address] Meghna Parson MD [address] [place], [place] [phone] [email or web address] (now [employer]) Muscle pain (Primary Dx); Leg cramps; Polyuria [...] EST) PHOSPHORUS 2.3(L) 2.7 - 4.5 mg/dL [facility] Blood 08/23/2017 12:3 2 PM EST 08/23/2017 12:36 PM EST us Meghna Parson MD LAB BLOOD ORDERABLE S Final Result Performing Organization Address [facility]/ZIP Co de Phone Number [address] [address] * Magnesium (08/23/2017 12:32 PM EST) MAGNESIUM 1.8 1.6 - 2.6 mg/dL [facility] Blood 08/23/2017 12:3 2 PM EST 08/23/2017 12:36 PM EST us Meghna Parson MD LAB BLOOD ORDERABLE S Final Result Performing Organization Address [facility] Co de Phone Number [address] [address] * Urine culture (08/23/2017 12:32 PM EST) Specimen Source/ Description URINE CLEAN CATCH URINE URINE [facility] Special Requests None [facility] GRAM STAIN NO ORGANISMS SEEN [facility] Culture/Test 10,000 to 100,000 colony forming units per ml MIXED HAYLEE (3 OR MORE COLONY TYPES) Culture indicates contamination . Please resubmit if necessary. [facility] Report Status 08/25/2017 FINAL [facility] Urine (Urine) 08/23/2017 12: 32 PM EST 08/23/2017 12:37 PM EST Meghna Parson MD MICROBIOLOGY - GENE RAL ORDERABLES Final Result Performing Organization Address [facility] Co de Phone Number [address] [address] * (ABNORMAL) Urinalysis (08/23/2017 12:32 PM EST) COLOR STRAW(A) Yellow [facility] CLARITY Clear [facility] GLUCOSE Negative Negative [facility] BILI Negative Negative [facility] KETONES Negative Negative [facility] SPECIFIC GRAVITY <1.005 1.005 - 1.030 [facility] BLOOD Negative Negative [facility] PH 5.5 5.0 - 8.0 [facility] Protein-UA Negative Negative [facility] NITRITE Negative Negative [facility] Leukocyte esterase, ur Negative Negative [facility] Urine (Urine) 08/23/2017 12: 32 PM EST 08/23/2017 12:36 PM EST us Meghna Parson MD URINE ORDERABLES Fi nal Result Performing Organization Address City/[facility]/ZIP Co de Phone Number [address] [address] * Hemoglobin A1c (08/23/2017 12:32 PM EST) HEMOGLOBIN A1C 4.9 4.3 - 5.8 % [facility] Blood 08/23/2017 12:3 2 PM EST 08/23/2017 12:36 PM EST us Meghna Parson MD LAB BLOOD ORDERABLE S Final Result Performing Organization Address City/[facility]/ZIP Co de Phone Number [address] [address] * (ABNORMAL) CPK (creatine kinase) (08/23/2017 12:32 PM EST) CREATINE KINASE 483(H) 21 - 215 U/L [facility] Blood 08/23/2017 12:3 2 PM EST 08/23/2017 12:36 PM EST us Meghna Parson MD LAB BLOOD ORDERABLE S Final Result Performing Organization Address [facility]/ZIP Co de Phone Number [address] [address] * (ABNORMAL) CBC and differential (08/23/2017 12:32 PM EST) WBC 9.50 3.40 - 11.20 K/uL [facility] RBC 4.88(H) 3.80 - 4.80 M/uL [facility] HGB 14.6 12.0 - 15.0 g/dL [facility] HCT 43.7 36.0 - 46.0 % [facility] PLT 281 130 - 400 K/uL [facility] MCV 89.5 79.0 - 98.0 fL [facility] MCH 29.9 27.0 - 34.8 pg [facility] MCHC 33.4 31.5 - 36.0 g/dL [facility] RDW 12.8 10.8 - 14.6 % [facility] MPV 9.9 9.4 - 12.4 fl [facility] NRBC 0.00 /100 WBCs [facility] ABSOLUTE NRBC 0.00 K/uL [facility] DIFF METHOD Auto [facility] NEUTS 64.0 45.30 - 77.70 % [facility] LYMPHS 25.2 12.30 - 39.70 % [facility] MONOS 8.1 4.10 - 12.80 % [facility] EOS 1.6 0 - 7.2 % [facility] BASOS 0.4 0 - 2.80 % [facility] Granulocytes, immature (%) 0.7 0.0 - 0.9 % [facility] ABSOLUTE NEUTS 6.08 1.40 - 7.70 K/uL [facility] ABSOLUTE LYMPHS 2.39 0.60 - 3.20 K/uL [facility] ABSOLUTE MONOS 0.77(H) 0.11 - 0.59 K/uL [facility] ABSOLUTE EOS 0.15 0.01 - 0.50 K/uL [facility] ABSOLUTE BASOS 0.04 0.00 - 0.08 K/uL [facility] Granulocytes, immature 0.07(H) 0.00 - 0.05 K/uL [facility] Blood 08/23/2017 12:3 2 PM EST 08/23/2017 12:36 PM EST us Meghna Parson MD LAB BLOOD ORDERABLE S Final Result [address] [address] * TSH with reflex (08/23/2017 12:32 PM EST) TSH 1.44 0.27 - 4.20 uIU/mL [facility] Blood 08/23/2017 12:3 2 PM EST 08/23/2017 12:36 PM EST us Meghna Parson MD LAB BLOOD ORDERABLE S Edited Result - Final [facility] [address] [place] [address] * (ABNORMAL) Comprehensive metabolic panel (08/23/2017 12:32 PM EST) SODIUM 142 133 - 146 mmol/L [facility] POTASSIUM 3.7 3.3 - 5.1 mmol/L [facility] CHLORIDE 103 96 - 108 mmol/L [facility] CO2 28 21 - 35 mmol/L [facility] BUN 20(H) 6 - 19 mg/dL [facility] CREATININE 0.80 0.5 - 1.5 mg/dL [facility] GLUCOSE 67(L) 70 - 99 mg/dL [facility] ALBUMIN 4.3 3.9 - 4.8 g/dL [facility] TOTAL PROTEIN 6.5 6.5 - 8.0 g/dL [facility] CALCIUM 9.6 8.4 - 10.3 mg/dL [facility] ALKALINE PHOSPHATASE 73 39 - 117 U/L [facility] TOTAL BILIRUBIN 0.2 0 - 1.2 mg/dL [facility] AST 25 0 - 37 U/L [facility] ALT 13 0 - 40 U/L [facility] GLOBULIN 2.2 1 - 4.8 g/dL [facility] EGFR >60 >60 mL/min/1.7 3m2 [facility] Comment:Abnormal if <60. If patient is -Citizen Of [place], multiply the result by 1.21. ANION GAP 15 10 - 20 mmol/L [facility] Blood 08/23/2017 12:3 2 PM EST 08/23/2017 12:36 PM EST us Meghna Parson MD LAB BLOOD ORDERABLE S Final Result [facility] [address] [place] [address] documented in this encounter Visit Diagnoses Diagnosis [...] as of this encounter Care Teams Ship Design Teacher Relationship Specialty Start Date End Date Meghna Parson MD [email or web address] PCP - General Internal Medicine 08/19/17 11/29/19 Madalyn Rogers MD [address] [place] [address] PCP - General 11/30/19 12/30/20 Meghna Parson MD [email or web address] PCP - General Internal Medicine 12/31/20 01/04/22 Marian Alicia MD [address] [place] [address] 7 [place] [address] [email or web address] PCP - General Family Medicine 01/05/22 Demond Roger MD [address] [place] [address] [email or web address] Historical LMR Provider 02/24/15 10/21/21 Tianna Coello MD [address] [place] [address] [email or web address] Historical LMR Provider 02/24/15 10/21/21 Yasmeen Ward MD [email or web address] Historical LMR Provider 02/24/1510/21 Macho Vincent DO [address] [place] [address] [email or web address] Primary Oncologist Hematology and Oncology 09/13/21 Camila Nayak FNP [address] [place] [address] [email or web address] Nurse Practitioner Medical Oncology 11/03/21 Mile Reynolds CNP [address] [place] [address] [email or web address] Nurse Practitioner Medical Oncology 11/03/21 documented as of this encounter Additional Source Comments The information contained in this document represents components of the legal health record. It is not the complete legal health record.[facility]
--- OUTSIDE RECORDS SUMMARY | 2025-07-06 06:32 | XMS_ITS | Encounter Summary ---
Author Organization [facility], Address [address] [place] [address] Phone Care Team Providers Care Doughnut Batter Mixer Name Role Phone Aretha Bain SHOVEL LOGGER Primary Care Provider [phone] Encounter Details Date Type Department Care Team (Late st Contact Info) Description 08/12/2023 Documentation Only [facility] [address] [place] [phone] Marian Alicia MD [address] [place] [address] 7 [place] [address] Social History Tobacco Use Types Packs/Day Years [...] Visit [facility], [address] [phone] Jamison Avila MD [address] [place] [phone] documented as of this encounter Visit Diagnoses Not on filedocumented in this encounter Care Teams Doughnut Batter Mixer Relationship Specialty Start Date End Date Aretha Bain NP [address] [facility] 1 [place] [address] PCP - General Nurse Practitioner 04/12/25 documented as of this encounter
--- OUTSIDE RECORDS SUMMARY | 2025-07-06 06:32 | XMS_ITS | Encounter Summary ---
Author Organization [facility] Address [address] [place] [address] Phone Care Team Providers Care Director Of Curriculum Name Role Phone Macho Vincent DO Unavailable [phone] Camila Nayak KENO WRITER/RUNNER Unavailable [phone] PackTristanen CONTINUOUS TOWEL ROLLER Unavailable Marian Alicia MD Primary Care Provider [phone] Encounter Details Date Type Department Care Team (Late st Contact Info) Description 08/13/2022 Procedure Pass [address] [address] Social History Tobacco Use Types Packs/Day Years [...] high school, GED, job training, learning the Monegasque language, technical skills, or developing parenting skills)? [...] of this encounter Care Teams Director Of Curriculum Relationship Specialty Start Date End Date Marian Alicia MD [address] [place] [address], [address] [place], [place] [id number] [email or web address] PCP - General Family Medicine 01/05/22 Macho Vincent DO [address] [place] [address] [email or web address] Primary Oncologist Hematology and Oncology 09/13/21 Camila Nayak FNP [address] [place] [address] [email or web address] Nurse Practitioner Medical Oncology 11/03/21 Mile Reynolds CNP [address] [place] [address] [email or web address] Nurse Practitioner Medical Oncology 11/03/21 documented as of this encounter Additional Source Comments The information contained in this document represents components of the legal health record. It is not the complete legal health record.[facility]
--- OUTSIDE RECORDS SUMMARY | 2025-07-06 06:32 | XMS_ITS | Encounter Summary ---
Author Organization [facility] Address [address] [facility] [address] [place] [address] Phone Care Team Providers Care Radarman Name Role Phone Demond Roger MD Unavailable [phone] FeltmateTianna MD Unavailable [phone] Yasmeen Ward MD Unavailable [email or web address] Meghna Parson MD Primary Care Provi vipin CarltonMacho gary W DO Unavailable [phone] Camila Nayak FIELD CROP TECHNICAL OFFICER Unavailable [phone] GailTristanen LIFE TESTER OUTBOARD MOTORS Unavailable Marian Alicia MD Primary Care Provider [phone] Encounter Details Date Type Department Care Team (Late st Contact Info) Description 05/18/2021 Transcribe Orders Virtual Department 30 [place] [address] Meghna Parson MD 736 [place], [place] [id number] [email or web address] Cellulitis, unspecified cellulitis site (Primary Dx); Pain [...] documented as of this encounter Care Teams Radarman Relationship Specialty Start Date End Date Meghna Parson MD [email or web address] PCP - General Internal Medicine 12/31/20 01/04/22 Marian Alicia MD [address] [place] [address], [address] [place] [address] PCP - General Family Medicine 01/05/22 Demond Roger MD [address] [place] [address] [email or web address] Historical LMR Provider 02/24/15 10/21/21 Tianna Coello MD [address] [place] [address] [email or web address] Historical LMR Provider 02/24/15 10/21/21 Yasmeen Ward MD [email or web address] Historical LMR Provider 02/24/1510/21 Macho Vincent DO [address] [place] [address] [email or web address] Primary Oncologist Hematology and Oncology 09/13/21 Camila Nayak FNP [address] [place] [address] Nurse Practitioner Medical Oncology 11/03/21 Mile Reynolds CNP [address] [place] [address] Nurse Practitioner Medical Oncology 11/03/21 documented as of this encounter Additional Source Comments The information contained in this document represents components of the legal health record. It is not the complete legal health record.[facility]
--- OUTSIDE RECORDS SUMMARY | 2025-07-06 06:32 | XMS_ITS | Encounter Summary ---
Author Organization [facility] Address [address] [address] Phone Care Team Providers Care Medical Auditor Name Role Phone Meghna Parson MD Primary Care Provi vipin Macho Vincent W DO Unavailable [phone] Camila Nayak MACHINE ATTENDANT Unavailable [phone] Mile TERMINOLOGIST Unavailable Marian Alicia MD Primary Care Provider [phone] Encounter Details Date Type Department Care Team (Late st Contact Info) Description 11/07/2021 Ancillary Orders [facility],Outside Imaging 30 [place], [place] [address] System, Provider Not In, [place] [address] Social History Tobacco Use Types Packs/Day Years [...] as of this encounter Care Teams Medical Auditor Relationship Specialty Start Date End Date Meghna Parson MD [email or web address] PCP - General Internal Medicine 12/31/20 01/04/22 Marian Alicia MD [address] [place] [address], [address] [place] [address] [email or web address] PCP - General Family Medicine 01/05/22 Macho Vincent DO [address] [place] [address] [email or web address] U Primary Oncologist Hematology and Oncology 09/13/21 Camila Nayak FNP [address] [place] [address] [email or web address] Nurse Practitioner Medical Oncology 11/03/21 Mile Reynolds CNP [address] [place] [address] Nurse Practitioner Medical Oncology 11/03/21 documented as of this encounter Additional Source Comments The information contained in this document represents components of the legal health record. It is not the complete legal health record.[facility]
--- OUTSIDE RECORDS SUMMARY | 2025-07-06 06:32 | XMS_ITS | Encounter Summary ---
Author Organization [facility] Address [address] [address] Phone Care Team Providers Care Sink Maker Name Role Phone Meghna Parson MD Primary Care Provi vipin Macho Vincent W DO Unavailable [phone] Camila Nayak DRESSING ROOM PORTER Unavailable [phone] SELF PROPELLED DREDGE OPERATOR Unavailable Marian Alicia MD Primary Care Provider [phone] Encounter Details Date Type Department Care Team (Late st Contact Info) Description 11/07/2021 Ancillary Orders [facility],Outside Imaging 30 [place], [place] [phone] System, Provider [place] In, [place] [address] Social History Tobacco Use Types Packs/Day Years [...] documented as of this encounter Care Teams Sink Maker Relationship Specialty Start Date End Date Meghna Parson MD [email or web address] PCP - General Internal Medicine 12/31/20 01/04/22 Marian Alicia MD [address] [place] [address], [address] [place] [address] [email or web address] PCP - General Family Medicine 01/05/22 Macho Vincent DO [address] [place] [address] [email or web address] Primary Oncologist Hematology and Oncology 09/13/21 Camila Nayak FNP [address] [place] [address] [email or web address] Nurse Practitioner Medical Oncology 11/03/21 Mile Reynolds CNP [address] [place] [address] Nurse Practitioner Medical Oncology 11/03/21 documented as of this encounter Additional Source Comments The information contained in this document represents components of the legal health record. It is not the complete legal health record.[facility]
--- OUTSIDE RECORDS SUMMARY | 2025-07-06 06:32 | XMS_ITS | Encounter Summary ---
Author Organization [facility], Address [address] [place] [address] Phone Care Team Providers Care Dining Chair Seat Cushion Trimmer Name Role Phone Aretha Bain FRAME BENDER Primary Care Provider [phone] Encounter Details Date Type Department Care Team (Late st Contact Info) Description 08/12/2023 Documentation Only [facility] [address] [place] [phone] Marian Alicia MD [address] [place] [address] 7 [place] [address] Social History Tobacco Use Types Packs/Day Years [...] Visit [facility], [address] [place] [phone] Jamison Avila MD [address] [facility] [place] [address] documented as of this encounter Visit Diagnoses Not on filedocumented in this encounter Care Teams Dining Chair Seat Cushion Trimmer Relationship Specialty Start Date End Date Aretha Bain NP [address] [facility] 1 [place] [address] PCP - General Nurse Practitioner 04/12/25 documented as of this encounter
--- OUTSIDE RECORDS SUMMARY | 2025-07-06 06:32 | XMS_ITS | Clinical Summary ---
Author Organization 175 [facility] Address 175 [place] [address] Phone Care Team Providers Care Chamber Worker Name Role Phone Aretha Bain NP Primary Care Provider [phone] Family History Medical History Relation Name Comments [...] of Phone Billing Address Personal/Family Self 1965 [phone] (Work) [address] [place] [address] MED[place] Care Teams Chamber Worker Relationship Specialty Start Date End Date Aretha Bain NP [address] [place] [address] PCP - General Nurse Practitioner 03/02/25
--- OUTSIDE RECORDS SUMMARY | 2025-07-06 06:32 | XMS_ITS | Encounter Summary ---
Author Organization [facility] Address [address] [facility] [address] [place] [address] Phone Care Team Providers Care Executive Coordinator Name Role Phone Demond Roger MD Unavailable [phone] FeltTianna ng MD Unavailable [phone] Yasmeen Ward MD Unavailable [email or web address] Meghna Parson MD Primary Care Provi vipin Madalyn Rogers MD Primary Care Provide r Meghna Parson MD Primary Care Provi vipin Macho Vincent DO Unavailable Camila Nayak POURER CRANE LADLE Unavailable [phone] Mile Reynolds COMPARISON SHOPPER Unavailable Marian Alicia MD Primary Care Provider [phone] Encounter Details Date Type Department Care Team (Late st Contact Info) Description 09/18/2019 Ancillary Orders [facility], X-Ray - [address] [address] Georgie Olsen MD [address] [place] [phone] [email or web address] Pneumonia due to infectious [...] documented as of this encounter Care Teams Executive Coordinator Relationship Specialty Start Date End Date Meghna Parson MD [email or web address] PCP - General Internal Medicine 08/19/17 11/29/19 Madalyn Rogers MD [address] [place] [address] PCP - General 11/30/19 12/30/20 Meghna Parson MD [email or web address] PCP - General Internal Medicine 12/31/20 01/04/22 Marian Alicia MD [address] [place] [address] 7 [place] [address] [email or web address] PCP - General Family Medicine 01/05/22 Demond Roger MD [address] [place] [address] [email or web address] Historical LMR Provider 02/24/15 10/21/21 Tianna Coello MD [address] [place] [address] [email or web address] Historical LMR Provider 02/24/15 10/21/21 Yasmeen Ward MD [email or web address] Historical LMR Provider 02/24/1510/21 Macho Vincent DO [address] [place] [address] [email or web address] Primary Oncologist Hematology and Oncology 09/13/21 Camila Nayak FNP [address] [place] [address] [email or web address] Nurse Practitioner Medical Oncology 11/03/21 Mile Reynolds CNP [address] [place] [address] [email or web address] Nurse Practitioner Medical Oncology 11/03/21 documented as of this encounter Additional Source Comments The information contained in this document represents components of the legal health record. It is not the complete legal health record.[facility]
--- OUTSIDE RECORDS SUMMARY | 2025-07-06 06:32 | XMS_ITS | Encounter Summary ---
Author Organization [facility] Address [address] [facility] [address] [place] [address] Phone Care Team Providers Care Strainer Cleaner Name Role Phone Demond Roger MD Unavailable [phone] FeltTianna ng MD Unavailable [phone] Yasmeen Ward MD Unavailable [email or web address] Meghna Parson MD Primary Care Provi vipin Madalyn Rogers MD Primary Care Provide r Meghna Parson MD Primary Care Provi vipin Macho Vincent DO Unavailable Camila Nayak RAILROAD SURVEYOR Unavailable [phone] Mile Reynolds HANDLE ATTACHER Unavailable Marian Alicia MD Primary Care Provider [phone] Encounter Details Date Type Department Care Team (Late st Contact Info) Description 11/12/2017 Ancillary Orders Virtual Department 30 [place] [address] Meghna Parson MD 736 [place], [place] [phone] [email or web address] Social History Tobacco Use Types Packs/Day Years [...] as of this encounter Care Teams Strainer Cleaner Relationship Specialty Start Date End Date Meghna Parson MD [email or web address] PCP - General Internal Medicine 08/19/17 11/29/19 Madalyn Rogers MD [address] [place] [address] PCP - General 11/30/19 12/30/20 Meghna Parson MD [email or web address] PCP - General Internal Medicine 12/31/20 01/04/22 Marian Alicia MD [address] [place] [address], [address] [place] [address] [email or web address] PCP - General Family Medicine 01/05/22 Demond Roger MD [address] [place] [address] [email or web address] Historical LMR Provider 02/24/15 10/21/21 Tianna Coello MD [address] [place] [address] [email or web address] Historical LMR Provider 02/24/15 10/21/21 Yasmeen Ward MD [email or web address] Historical LMR Provider 02/24/1510/21 Macho Vincent DO [address] [place] [address] [email or web address] Primary Oncologist Hematology and Oncology 09/13/21 Camila Nayak FNP [address] [place] [address] [email or web address] Nurse Practitioner Medical Oncology 11/03/21 Mile Reynolds CNP [address] [place] [address] [email or web address] Nurse Practitioner Medical Oncology 11/03/21 documented as of this encounter Additional Source Comments The information contained in this document represents components of the legal health record. It is not the complete legal health record.[facility]
--- OUTSIDE RECORDS SUMMARY | 2025-07-06 06:32 | XMS_ITS | Encounter Summary ---
Author Organization [facility] Address 399 [facility] [address] [place] [address] Phone Care Team Providers Care Taco Maker Name Role Phone Dell Chiang MD Primary Care Provider [phone] Demond Roger MD Unavailable [phone] FeltTianna ng MD Unavailable [phone] Yasmeen Ward MD Unavailable [email or web address] Meghna Parson MD Primary Care Provi vipin Madalyn Rogers MD Primary Care Provide r Meghna Parson MD Primary Care Provi vipin Macho Vincent W DO Unavailable Camila Nayak SHAPING MACHINE OPERATOR Unavailable Mile Reynolds MANAGER BANK Unavailable Marian Alicia MD Primary Care Provider [phone] Encounter Details Date Type Department Care Team (Late st Contact Info) Description 08/13/2017 Ancillary Orders [facility] Department 30 [place] [address] Meghna Parson MD 736 [place], [place] [phone] [email or web address] Chest discomfort Social History Tobacco Use Types [...] pharynx on clinical exam. COMPARISON: None FINDINGS: Fan Blade Aligner AP view of the abdomen shows a [...] pharynx on clinical exam. COMPARISON: None FINDINGS: Fan Blade Aligner AP view of the abdomen shows a [...] documented as of this encounter Care Teams Taco Maker Relationship Specialty Start Date End Date Dell Chiang MD [address] [place] [address] PCP - General 02/18/15 08/18/17 Meghna Parson MD [email or web address] PCP - General Internal Medicine 08/19/17 11/29/19 Madalyn Rogers MD [address] [place] [address] PCP - General 11/30/19 12/30/20 Meghna Parson MD [email or web address] PCP - General Internal Medicine 12/31/20 01/04/22 Marian Alicia MD [address] [place] [address] 7 [place] [address] [email or web address] PCP - General Family Medicine 01/05/22 Demond Roger MD [address] [place] [address] [email or web address] Historical LMR Provider 02/24/15 10/21/21 Tianna Coello MD [address] [place] [address] [email or web address] Historical LMR Provider 02/24/15 10/21/21 Yasmeen Ward MD [email or web address] Historical LMR Provider 02/24/1510/21 Macho Vincent DO 30 [place] [address] [email or web address] [facility] Primary Oncologist Hematology and Oncology 09/13/21 Camila Nayak FNP 30 [place] [address] [email or web address] Nurse Practitioner Medical Oncology 11/03/21 Mile Reynolds CNP [address] [place], [place] [address] [email or web address] Nurse Practitioner Medical Oncology 11/03/21 documented as of this encounter Additional Source Comments The information contained in this document represents components of the legal health record. It is not the complete legal health record.[facility]
--- OUTSIDE RECORDS SUMMARY | 2025-07-06 06:32 | XMS_ITS | Encounter Summary ---
Author Organization [facility] Address 399 [facility] [address] [place] [address] Phone Care Team Providers Care Silk Screen Processor Name Role Phone Dell Chiang MD Primary Care Provider [phone] Demond Roger MD Unavailable [phone] FeltTianna ng MD Unavailable [phone] Yasmeen Ward MD Unavailable [email or web address] Meghna Parson MD Primary Care Provi vipin Madalyn Rogers MD Primary Care Provide r Meghna Parson MD Primary Care Provi vipin Macho Vincent W DO Unavailable [phone] Camila Nayak LIFE UNDERWRITER Unavailable Mile Reynolds BUGGY MAN Unavailable Marian Alicia MD Primary Care Provider [phone] Encounter Details Date Type Department Care Team (Late st Contact Info) Description 08/03/2017 Ancillary Orders [facility], X-Ray - [address] [address] Meghna Parson MD [address] [place] [address] Breast screening Social History Tobacco Use Types [...] There are scattered fibroglandular densities. POS - [id number] Narrative 09/06/2017 8:52 AM EST Standard digital [...] and compared with multiple prior studies, most vryihtjf74/24/2016, with utilization of computer-aided detection. The breasts are composed of scattered fibroglandular densities. Thestromal markings are essentially unchanged in overall appearance anddistribution. No dominant spiculated mass, suspicious clusteredmicrocalcifications, or focal zone of pathologic skin thickening orretraction are noted to have arisen in the interim. IMPRESSION: No mammographic evidence of malignancy. BI-RADS CATEGORY: 1 - Negative. DENSITY: There are scattered fibroglandular densities. POS - [id number] Meghna Parson MD IMG MG EXAMS Fin [...] documented as of this encounter Care Teams Silk Screen Processor Relationship Specialty Start Date End Date Dell Chiang MD [address] [facility] [address] [place] [address] PCP - General 02/18/15 08/18/17 Meghna Parson MD [email or web address] PCP - General Internal Medicine 08/19/17 11/29/19 Madalyn Rogers MD [address] [place] [address] PCP - General 11/30/19 12/30/20 Meghna Parson MD [email or web address] PCP - General Internal Medicine 12/31/20 01/04/22 Marian Alicia MD [address] [place] [address] 7 [place] [address] [email or web address] PCP - General Family Medicine 01/05/22 Demond Roger MD [address] [place] [address] [email or web address] Historical LMR Provider 02/24/15 10/21/21 Tianna Coello MD [address] [place] [address] [email or web address] Historical LMR Provider 02/24/15 10/21/21 Yasmeen Ward MD [email or web address] Historical LMR Provider 02/24/1510/21 Macho Vincent DO [address] [place] [address] [email or web address] Primary Oncologist Hematology and Oncology 09/13/21 Camila Nayak FNP [address] [place] [address] [email or web address] Nurse Practitioner Medical Oncology 11/03/21 Mile Reynolds CNP [address] [place] [address] [email or web address] Nurse Practitioner Medical Oncology 11/03/21 documented as of this encounter Additional Source Comments The information contained in this document represents components of the legal health record. It is not the complete legal health record.[facility]
--- OUTSIDE RECORDS SUMMARY | 2025-07-06 06:32 | XMS_ITS | Encounter Summary ---
Author Organization [facility] Address [address] [facility] [address] [place] [address] Phone Care Team Providers Care Leg Breaker Name Role Phone Demond Roger MD Unavailable [phone] FeltmateTianna MD Unavailable [phone] Yasmeen Ward MD Unavailable [email or web address] Meghna Parson MD Primary Care Provi vipin CarltonMacho gary W DO Unavailable [phone] Camila Nayak WATER HAULER Unavailable [phone], Mile SINGLE ENDING MACHINE OPERATOR Unavailable Marian Alicia MD Primary Care Provider [phone] Encounter Details Date Type Department Care Team (Late st Contact Info) Description 06/13/2021 Transcribe Orders Virtual Department 30 [place] [address] Meghna Parson MD [address] [place], [place] [id number] Post-void dribbling (Primary Dx) Social History Tobacco [...] 2:37 PM EDT Normal bladder ultrasound POS [id number] Narrative 06/27/2021 2:37 PM EDT No comparison [...] (11% residual) IMPRESSION: Normal bladder ultrasound POS [id number] Meghna Parson MD IMG US RENAL Fin [...] documented as of this encounter Care Teams Leg Breaker Relationship Specialty Start Date End Date Meghna Parson MD [email or web address] PCP - General Internal Medicine 12/31/20 01/04/22 Marian Alicia MD [address] [place] [address], [address] [place] [address] [email or web address] PCP - General Family Medicine 01/05/22 Demond Roger MD [address] [place] [address] [email or web address] Historical LMR Provider 02/24/15 10/21/21 Tianna Coello MD [address] [place] [address] [email or web address] Historical LMR Provider 02/24/15 10/21/21 Yasmeen Ward MD [email or web address] Historical LMR Provider 02/24/1510/21 Macho Vincent DO [address] [place] [address] [email or web address] Primary Oncologist Hematology and Oncology 09/13/21 Camila Nayak FNP [address] [place] [address] [email or web address] Nurse Practitioner Medical Oncology 11/03/21 Mile Reynolds CNP [address] [place] [address] Nurse Practitioner Medical Oncology 11/03/21 documented as of this encounter Additional Source Comments The information contained in this document represents components of the legal health record. It is not the complete legal health record.[facility]
--- OUTSIDE RECORDS SUMMARY | 2025-07-06 06:32 | XMS_ITS | Encounter Summary ---
Author Organization [facility] Address [address] [facility] [address] [place] [address] Phone Care Team Providers Care Registered Nurse Surgical Services Name Role Phone Demond Roger MD Unavailable [phone] FeltTianna ng MD Unavailable [phone] Yasmeen Ward MD Unavailable [email or web address] Meghna Parson MD Primary Care Provi vipin Madalyn Rogers MD Primary Care Provide r Meghna Parson MD Primary Care Provi vipin Macho Vincent DO Unavailable [phone] Camila Nayak PROGRAM DIRECTOR SCOUTING Unavailable [phone] Reynolds GOLF COURSE ASSISTANT Unavailable Marian Alicia MD Primary Care Provider [phone] Encounter Details Date Type Department Care Team (Late st Contact Info) Description 03/03/2018 Ancillary Orders [facility], X-Ray - [address] [address] [place] MD [address] [facility] [address] [place], [place] [id number] [email or web address] Dyspnea, unspecified type Social History [...] documented as of this encounter Care Teams Registered Nurse Surgical Services Relationship Specialty Start Date End Date Meghna Parson MD [email or web address] PCP - General Internal Medicine 08/19/17 11/29/19 Madalyn Rogers MD [address] [place] [address] PCP - General 11/30/19 12/30/20 Meghna Parson MD [email or web address] PCP - General Internal Medicine 12/31/20 01/04/22 Marian Alicia MD [address] [place] [address] 7 [place] [address] [email or web address] PCP - General Family Medicine 01/05/22 Demond Roger MD [address] [place] [address] [email or web address] Historical LMR Provider 02/24/15 10/21/21 Tianna Coello MD [address] [place] [address] [email or web address] Historical LMR Provider 02/24/15 10/21/21 Yasmeen Ward MD [email or web address] Historical LMR Provider 02/24/1510/21 Macho Vincent DO [address] [place] [address] [email or web address] Primary Oncologist Hematology and Oncology 09/13/21 Camila Nayak FNP [address] [place] [address] [email or web address] Nurse Practitioner Medical Oncology 11/03/21 Mile Reynolds CNP [address] [place] [address] [email or web address] Nurse Practitioner Medical Oncology 11/03/21 documented as of this encounter Additional Source Comments The information contained in this document represents components of the legal health record. It is not the complete legal health record.[facility]
--- OUTSIDE RECORDS SUMMARY | 2025-07-06 06:32 | XMS_ITS | Encounter Summary ---
Author Organization [facility] Address [address] [employer] [facility] [address] [place] [address] Phone Care Team Providers Care Field Installation Technician Name Role Phone Macho Vincent DO Unavailable [phone] Camila Nayak CHARCOAL BURNER BEEHIVE KILN Unavailable PackMile DIALYSIS CLINICAL MANAGER Unavailable Marian Alicia MD Primary Care Provider [phone] Reason for Visit * Reason Onset Date Comments Appointment 06/03/2025 Encounter Details Date Type Department Care Team (Late st Contact Info) Description 06/03/2025 Telephone [facility] General Surgical Care [address] [place], [place] [id number] Unknown, Unknown, Appointment Social History Tobacco Use [...] with the weight loss dept. Central Support Medical Billing Clerk (Please do not reply to this user; this inbox is not monitored.) Thank you. documented in this encounter Plan of Treatment Not on file documented as of this encounter Visit Diagnoses Not on filedocumented in this encounter Additional Health Concerns Assessment Noted Time PHQ-2 Depression Total Score: 1 01/24/20 23 4:10 PM EDT documented as of this encounter Care Teams Field Installation Technician Relationship Specialty Start Date End Date Marian Alicia MD [address] [place] [address], [address] [place] [address] [email or web address] PCP - General Family Medicine 01/05/22 Macho Vincent DO [address] [place] [address] [email or web address] Primary Oncologist Hematology and Oncology 09/13/21 Camila Nayak FNP [address] [place] [address] Nurse Practitioner Medical Oncology 11/03/21 Mile Reynolds CNP [address] [place] [address] Nurse Practitioner Medical Oncology 11/03/21 documented as of this encounter Additional Source Comments The information contained in this document represents components of the legal health record. It is not the complete legal health record.[facility]
--- OUTSIDE RECORDS SUMMARY | 2025-07-06 06:32 | XMS_ITS | Encounter Summary ---
Author Organization [facility] Address [address] [facility] [address] [place] [address] Phone Care Team Providers Care Certified Juvenile Probation Officer Name Role Phone Dell Chiang MD Primary Care Provider [phone] Demond Roger MD Unavailable [phone] FeltTianna ng MD Unavailable [phone] Yasmeen Ward MD Unavailable [email or web address] Meghna Parson MD Primary Care Provi vipin Madalyn Rogers MD Primary Care Provide r Meghna Parson MD Primary Care Provi vipin Macho Vincent W DO Unavailable [phone] Camila Nayak LIGHTOUT EXAMINER Unavailable Mile Reynolds SURFACE SUPPLY BREATHING APPARATUS Unavailable Marian Alicia MD Primary Care Provider [phone] Encounter Details Date Type Department Care Team (Late st Contact Info) Description 08/04/2017 Ancillary Orders [address] [address] Meghna Parson MD 6 [place] [address] [email or web address] Social History Tobacco Use Types Packs/Day Years [...] as of this encounter Care Teams Certified Juvenile Probation Officer Relationship Specialty Start Date End Date Dell Chiang MD [address] [facility] [address] [place] [address] PCP - General 02/18/15 08/18/17 Meghna Parson MD [email or web address] PCP - General Internal Medicine 08/19/17 11/29/19 Madalyn Rogers MD [address] [place] [address] PCP - General 11/30/19 12/30/20 Meghna Parson MD [email or web address] PCP - General Internal Medicine 12/31/20 01/04/22 Marian Alicia MD [address] [place] [address], [address] [place] [address] [email or web address] PCP - General Family Medicine 01/05/22 Demond Roger MD [address] [place] [address] [email or web address] Historical LMR Provider 02/24/15 10/21/21 Tianna Coello MD [address] [place] [address] [email or web address] Historical LMR Provider 02/24/15 10/21/21 Yasmeen Ward MD [email or web address] Historical LMR Provider 02/24/1510/21 Macho Vincent DO [address] [place] [address] [email or web address] Primary Oncologist Hematology and Oncology 09/13/21 Camila Nayak FNP [address] [place] [address] [email or web address] Nurse Practitioner Medical Oncology 11/03/21 Mile Reynolds CNP [address] [place] [address] [email or web address] Nurse Practitioner Medical Oncology 11/03/21 documented as of this encounter Additional Source Comments The information contained in this document represents components of the legal health record. It is not the complete legal health record.[facility]
--- OUTSIDE RECORDS SUMMARY | 2025-07-06 06:32 | XMS_ITS | Encounter Summary ---
Author Organization [facility] Address [address] [facility] [address] [place] [address] Phone Care Team Providers Care Auto Finance Sales Rep Name Role Phone Demond Roger MD Unavailable [phone] FeltTianna ng MD Unavailable [phone] Yasmeen Ward MD Unavailable [email or web address] Meghna Parson MD Primary Care Provi vipin Madalyn Rogers MD Primary Care Provide r Meghna Parson MD Primary Care Provi vipin Macho Vincent DO Unavailable [phone] Camila Nayak FRENCH TUTOR Unavailable Mile Reynolds PERFORATOR Unavailable Marian Alicia MD Primary Care Provider [phone] Encounter Details Date Type Department Care Team (Late st Contact Info) Description 08/31/2019 Ancillary Orders Virtual Department 30 [place] [address] Meghna Parson MD [address] [place], [place] [phone] [email or web address] Breast screening Social History Tobacco Use [...] documented as of this encounter Care Teams Auto Finance Sales Rep Relationship Specialty Start Date End Date Meghna Parson MD [email or web address] PCP - General Internal Medicine 08/19/17 11/29/19 Madalyn Rogers MD [address] [place] [address] PCP - General 11/30/19 12/30/20 Meghna Parson MD [email or web address] PCP - General Internal Medicine 12/31/20 01/04/22 Marian Alicia MD [address] [place] [address] 7 [place] [address] PCP - General Family Medicine 01/05/22 Demond Roger MD [address] [place] [address] [email or web address] Historical LMR Provider 02/24/15 10/21/21 Tianna Coello MD [address] [place] [address] [email or web address] Historical LMR Provider 02/24/15 10/21/21 Yasmeen Ward MD [email or web address] Historical LMR Provider 02/24/1510/21 Macho Vincent DO [address] [place] [address] [email or web address] Primary Oncologist Hematology and Oncology 09/13/21 Camila Nayak FNP [address] [place] [address] [email or web address] Nurse Practitioner Medical Oncology 11/03/21 Mile Reynolds CNP [address] [place] [address] [email or web address] Nurse Practitioner Medical Oncology 11/03/21 documented as of this encounter Additional Source Comments The information contained in this document represents components of the legal health record. It is not the complete legal health record.[facility]
--- OUTSIDE RECORDS SUMMARY | 2025-07-06 06:32 | XMS_ITS | Encounter Summary ---
Author Organization [facility] Address [address] [employer] [address] [address] Phone Care Team Providers Care Commissioning Specialist Name Role Phone Meghna Parson MD Primary Care Provi vipin Macho Vincent W DO Unavailable [phone] Camila Nayak SENIOR MAINTENANCE TECHNICIAN Unavailable [phone], [address] MANAGER STERILE Unavailable Marian Alicia MD Primary Care Provider [phone] Encounter Details Date Type Department Care Team (Late st Contact Info) Description 11/07/2021 Ancillary Orders [facility],Outside Imaging [address] [place], [place] [phone] System, Provider Not In, [place] [address] Social History Tobacco Use Types Packs/Day Years [...] documented as of this encounter Care Teams Commissioning Specialist Relationship Specialty Start Date End Date Meghna Parson MD [email or web address] PCP - General Internal Medicine 12/31/20 01/04/22 Marian Alicia MD [address] [place] [address], [address] [place] [address] [email or web address] PCP - General Family Medicine 01/05/22 Macho Vincent DO [address] [place] [address] [email or web address] Primary Oncologist Hematology and Oncology 09/13/21 Camila Nayak FNP [address] [place] [address] [email or web address] Nurse Practitioner Medical Oncology 11/03/21 Mile Reynolds CNP [address] [place] [address] Nurse Practitioner Medical Oncology 11/03/21 documented as of this encounter Additional Source Comments The information contained in this document represents components of the legal health record. It is not the complete legal health record.[facility]
--- OUTSIDE RECORDS SUMMARY | 2025-07-06 06:32 | XMS_ITS | Encounter Summary ---
Author Organization [facility] Address [address] [facility] [address] [place] [address] Phone Care Team Providers Care Brewing Director Name Role Phone Demond Roger MD Unavailable [phone] FeltmateTianna MD Unavailable [phone] Yasmeen Ward MD Unavailable [email or web address] Meghna Parson MD Primary Care Provi vipin CarltonMacho gary W DO Unavailable Camila Nayak AIRFIELD ENGINEER OFFICER Unavailable [phone], Mile DATA PROCESSING SYSTEMS CONSULTANT Unavailable Marian Alicia MD Primary Care Provider [phone] Encounter Details Date Type Department Care Team (Late st Contact Info) Description 05/22/2021 Ancillary Orders [facility], X-Ray - [address] [address] Sabas, [place] Verde MD [address] [facility] [address] [place], [place] [phone] [email or web address] Erythema Social History Tobacco Use Types [...] documented as of this encounter Care Teams Brewing Director Relationship Specialty Start Date End Date Meghna Parson MD [email or web address] PCP - General Internal Medicine 12/31/20 01/04/22 Marian Alicia MD [address] [place] [address] 7 [place] [address] [email or web address] PCP - General Family Medicine 01/05/22 Demond Roger MD [address] [place] [address] [email or web address] Historical LMR Provider 02/24/15 10/21/21 Tianna Coello MD [address] [place] [address] [email or web address] Historical LMR Provider 02/24/15 10/21/21 Yasmeen Ward MD [email or web address] Historical LMR Provider 02/24/1510/21 Macho Vincent DO 30 [place] [address] [email or web address]. [email or web address] Primary Oncologist Hematology and Oncology 09/13/21 Camila Nayak FNP [address] [place] [address] [email or web address] Nurse Practitioner Medical Oncology 11/03/21 Mile Reynolds CNP [address] [place], [place] [address] [email or web address] Nurse Practitioner Medical Oncology 11/03/21 documented as of this encounter Additional Source Comments The information contained in this document represents components of the legal health record. It is not the complete legal health record.[facility]
[2025-07-06] MEDS: Lactated Ringers 1,000 ML 999 ML IV (06:35)
[2025-07-06] MEDS: Aprepitant 32 MG/4.4 ML VIAL IVPUSH (06:45)
--- NOTE | 2025-07-06 07:17 | PHA.MEDREC ---
Pharmacy Consult ? Medication Reconciliation Pharmacy has completed the medication reconciliation. Reviewed med rec done by nursing.
--- NOTE | 2025-07-06 07:26 | P.HPSUR_ITS ---
Pre-Procedural Eval Section A - 24 Hr Update-Section A only Date of Service: 07/06/25 The patient is an INPATIENT: Yes The patient has been examined within 24 hours of the surgical procedure. The History & Physical has been completed within 30 days and I have reviewed it.: Yes Section B - Complete if H&P > 30 days Chief Complaint: sleeve gastrectomy Relevant Family History (Specify if Yes): No Relevant Social History: None Present Medications: None Medical History: No relevant PMH History of Previous Operations: No relevant previous surgery Allergies: Allergies Allergy/AdvReac Type Severity Reaction Status Date / Time ciprofloxacin Allergy rash Verified 07/06/25 06:28 nitrofurantoin (From Allergy rash Verified 07/06/25 06:28 Macrobid) Sulfa (Sulfonamide Allergy rash Verified 07/06/25 06:28 Antibiotics) quetiapine (From Seroquel) AdvReac suicidal Verified 07/06/25 06:28 ideation Review of Systems Sugical H&P ROS: Negative: Constitution, Cardiovascular, Respiratory, Neurol ogical, Psychiatric, Hem-Onc, Allergic/Immunologic, Gastrointestinal, Genitourinary, Musculoskeletal, Integumentary, Endocrine and Eyes/Ears/Nose/Throat Exam Surgical H&P Exam: Normal: HEENT, Normal: Heart, Normal: Lungs, Normal: Extremities, Normal: Abdomen, Normal: Skin and Normal: Neurological Plan Diagnosis/Plan: Unchanged I have reviewed the history and physical and performed a pertinent physical examination on my patient. No changes have occurred unless specified. Time Spent With Patient Time: Total time managing care of this patient today ____ minutes.
--- NOTE | 2025-07-06 07:30 | PM.OP ---
Brief Operative Note Date of Service: 07/06/25 Pre-op diagnosis: Morbid obesity with comorbidities (see below) Post-op diagnosis: same (& congenital abdominal adhesions) Procedure: INITIAL PATIENT BMI ON PRESENTATION AT OUR OFFICE: 55.7 kg/m2 LAST BMI BEFORE SURGERY: 50.2 kg/m2 COMORBIDITIES: sleep apnea on CPAP, hypertension, DJD, depression, anxiety, GERD, liver steatosis, history of VTE ?The patient presented to the Weight Management Program with significant obesity that was negatively impacting the patient's comorbidities as listed above.? The program is a phased program with a special focus on preoperative medical weight management to promote substantial weight loss and prepare the patients for the second phase of the program: bariatric surgery. The patient participated in an intensive weekly lifestyle ?intervention and exercise program during which the patient ?has lost between the initial office visit and the last preoperative visit 31.1 lbs, or 9.9% of initial actual body weight. It was deemed appropriate for the patient to now have bariatric surgery. In light of the current Covid-19 pandemic and the well documented strong association of obesity and increased risk of worse outcomes if infected with Covid-19 (REFERENCES:https://pubmed.ncbi.nlm.nih.gov/25516257/,?https://pubmed.ncbi.nlm.nih.gov/61613371/), any delay in undergoing bariatric surgery may lead to the patient's worsening health condition and increased?risk of more severe Covid-19 disease if infected. In addition a recent?study from [facility] [place] published in [employer] on 10/09/2021 ([email or web address]) found that, among patients with obesity, substantial weight loss achieved with surgery was associated with improved outcomes of COVID-19 infection. The findings suggest that obesity can be a modifiable risk factor for the severity of COVID-19 infection. In addition, the patient met the BMI-criteria for bariatric surgery based on the BMI on initial presentation. The patient should not be penalized for achieving such weight loss because ?it is not sustainable long-term without surgical intervention and it was achieved in preparation for bariatric surgery ?under my direction and based on my published research ([email or web address] and?[email or web address].soard.org/article/[email or web address])[email or web address]/pdf) ?that a 10% preoperative weight loss improves long-term weight loss after surgery and reduces perioperative complications.? Insurance carriers such as [facility] have endorsed my recommendations ?and have included in their policies criteria to include a 10% preoperative weight loss requirement. PROCEDURE: Esophago-gastroscopy, laparoscopic lysis of adhesions, laparoscopic sleeve gastrectomy and laparoscopic gastropexy INDICATIONS: This is a 60 year-old female who was electively scheduled for laparoscopic, possibly open sleeve gastrectomy. The risks and complications of the procedure were discussed with the patient in advance, particularly the possibility of ; pulmonary embolism; staple line leak; bleeding; GERD; cardiac, pulmonary, or renal complications; as well as long-term problems such as insufficient weight loss, vitamin deficiency, strictures, or ulcers. The patient understood all the risks, and was in agreement to proceed with surgery. DESCRIPTION OF PROCEDURE: After informed consent was obtained from the patient, the patient was given preoperative antibiotics, and was transferred to the operating room. After successful induction of general anesthesia, pneumatic compression devices were placed on both lower extremities. An upper endoscopy was performed next. The oropharynx and esophagus appeared to be within normal limits. There was no diaphragmatic hernia present.The stomach was entered. Then after all fluid and air were suctioned and the stomach was fully decompressed, the scope was withdrawn and secured in the mid esophagus. The patient was then prepped and draped in the usual sterile manner, and abdominal access was established at the right upper quadrant with the Sarah technique. A 12 mm blunt port was inserted, and the abdomen was insufflated with CO2 to a pressure of 15 mmHg. Under direct visualization, additional ports were placed, specifically two 5 mm Versi-step ports to the left upper quadrant, and a 5 mm Versi-Step port to the right upper quadrant. 1% lidocaine plain was used to infiltrate all port sites as well as all fascia defects. Following that, the patient was placed in a steep reverse Trendelenburg position. An additional 5 mm port was placed to the right flank for the Mediflex retractor that was used to retract the left lobe of the liver. The gastro-esophageal fat pad was opened with the ultrasonic device (Thunderbeat, Olympus) and the anterior esophagus and hiatus were exposed. The angle of His was opened with the ultrasonic device the fundus of the stomach from any diaphragmatic and splenic attachments. I then opened the gastrocolic ligament between the transverse colon and the greater curvature of the stomach with the ultrasonic device to enter the lesser sac and facilitate the ligation of the short gastric vessels. I started at a mid-point along the greater curvature and using the Thunderbeat, all short gastric vessels were divided all the way to the angle of His until the left chaz was completely dissected at its entirety. I then divided the gastro-colic ligament distally to a distance of about 3-4 cm proximal to the pylorus. There were extensive congenital adhesions between the pancreas and posterior gastric wall. Those were lysed completely with the ultrasonic device. Adhesiolysis took approximately 45 min to complete. The stomach was then divided transversely with three Endo YEISON-45 purple and three YEISON-60 articulating purple loads using the Shadow PuppetIA stapler and loads. Every effort was made that the gastric sleeve had a tubular shape and an even caliber throughout. Once the sleeve resection was completed, the staple line of the gastric sleeve was reinforced with Hemoclips. The resected stomach was retrieved without difficulty from the Sarah port. A gastropexy was then performed in order to prevent postoperative GERD and partial gastric volvulus. Several interrupted 2.0 Surgidac sutures were placed between the sleeve's staple line and the previously divided greater omentum and gastro-colic ligament using the Endo-Stitch device. ?An upper endoscopy was performed. There was no narrowing at the GE junction. The scope was easily advanced all the way to the pylorus which was clearly visualized. There was no narrowing anywhere and the sleeve's caliber was even throughout. The sleeve's staple line was inspected and there was no evidence of ischemia, bleeding or dehiscence. At that point the gastroscope was withdrawn from the patient?s mouth while we were decompressing the bowel and the stomach from any remaining air. I looked into the lesser sac to see how the sleeve was situating and it was situating well. There was no bleeding from the staple line, spleen, or short gastric vessels. The Mediflex retractor was removed, and the undersurface of the liver was inspected and there was no bleeding. The patient was placed in supine position. I closed the fascial defect of the 12 mm port site with a figure of eight #1 Polysorb suture. Then 30cc Ropivacaine plain with 10 mg of Dexamethasone were used to infiltrate the fascial closure as well as all skin incisions. At this point, the abdomen was deflated, all ports were removed under direct vision, and no bleeding was noted from any of the port sites. The skin incisions were irrigated with saline and were closed with 4-0 absorbable monofilament sutures. Steri-Strips and OpSites were used to cover all incisions. The patient was extubated and was transferred in stable condition to the recovery room for further care. I was present and performed all cruz parts of the procedure. Ms. Madrigal was the international first officer. There were no residents to assist with this case. Matt Mccarthy MD, PhD, FACS Surgeon: Jarvis Mccarthy MD Anesthesia: GETA, local and other (TAP block) Was an River Cross[place] Supervisor used for this Procedure?: No River Crossing Supervisor: Ana M Madrigal Estimated blood loss (mL): 10 IV fluids (mL): 2,200 Urine output (mL): 0 (No Donaldson to record output) Pathology: other (1) Stomach) Condition: stable Disposition: PACU
--- NOTE | 2025-07-06 07:34 | P.PNGS_ITS ---
Subjective Subjective Date of Service: 07/07/25 Interval history: Feels well. Mild incisional pain. She is tolerating phase 1 bariatric diet Physical Exam 2 Vital Signs: Vital Signs: Last Vital Signs Temp 98.3 F 07/06/25 06:32 Pulse 85 07/06/25 06:32 Resp 14 07/06/25 06:32 BP 133/72 07/06/25 06:32 Pulse Ox 97 07/06/25 06:32 O2 Del Method Room Air 07/06/25 06:32 BMI result Body Mass Index 50.8 GI: Inspection: Yes normal to inspection, Yes incision (clean, dry and intact) and Yes obesity Palpation (GI): Soft to palpation Extrem: Right lower extremity: normal to inspection (no calf tenderness) L eft lower extremity: normal to inspection (no calf tenderness) Objective Data Active Medications Lactated Ringer's (Lr) 1,000 mls @ 100 mls/hr IVCONT .Q10H NEERAJ Lactated Ringer's (Lr) 1,000 mls @ 999 mls/hr IV .Q1H1M NEERAJ Stop: 07/06/25 08:30 Last Admin: 07/06/25 06:35 Dose: 999 mls/hr Documented By: MADDIE Labs 07/07/25 05:42 07/07/25 05:42 Procedures Date of Service Date of Service: 07/07/25 Progress Note: A&P Assessment and plan (1) Morbid obesity with BMI of 50.0-59.9, adult: Status: Acute Assessment and Plan: s/p laparoscopic sleeve gastrectomy, lysis of adhesions and gastropexy Doing well Will check am labs and if OK the patient will be discharged home (2) PTSD (post-traumatic stress disorder): Status: Acute (3) Depression: Status: Acute (4) Anxiety: Status: Acute (5) Hypertension: Status: Acute (6) DVT (deep venous thrombosis): Status: Acute (7) Pulmonary embolism: Status: Acute (8) GERD (gastroesophageal reflux disease): Status: Acute (9) DJD (degenerative joint disease): Status: Acute (10) Sleep apnea treated with continuous positive airway pressure (CPAP): Status: Acute (11) Steatosis, liver: Status: Acute (12) S/P laparoscopic sleeve gastrectomy: Status: Acute (13) Congenital intra-abdominal adhesions: Status: Acute Time Spent With Patient Time: Total time managing care of this patient today ____ minutes. Quality Stroke Does the patient have a stroke diagnosis?: No VTE Prior VTE?: Yes VTE Risk Level:: Surgical - moderate VTE Device Contraindication: N/A - Device Ordered VTE Drug Contraindication: Treatment Not Indicated
--- NOTE | 2025-07-06 10:08 | P.DS_ITS ---
DS: Providers Provider Date of Service: 07/07/25 Date of admission: 07/06/25 06:25 Date of discharge: 07/07/25 Primary care physician: Aretha Bain NP DS: Diagnosis Discharge Diagnosis (1) Morbid obesity with BMI of 50.0-59.9, adult: Status: Acute (2) PTSD (post-traumatic stress disorder): Status: Acute (3) Depression: Status: Acute (4) Anxiety: Status: Acute (5) Hypertension: Status: Acute (6) DVT (deep venous thrombosis): Status: Acute (7) Pulmonary embolism: Status: Acute (8) GERD (gastroesophageal reflux disease): Status: Acute (9) DJD (degenerative joint disease): Status: Acute (10) Sleep apnea treated with continuous positive airway pressure (CPAP): Status: Acute (11) Steatosis, liver: Status: Acute (12) S/P laparoscopic sleeve gastrectomy: Status: Acute (13) Congenital intra-abdominal adhesions: Status: Acute DS: Summary Hospital Course Hospital Course: ADMITTING DIAGNOSIS: morbid obesity, liver steatosis, DVT/PE, MDD, DJD, GERD, JOSÉ MIGUEL on CPAP, HTN, anxiety, PTSD DISCHARGE DIAGNOSIS: same, s/p laparoscopic sleeve gastrectomy and gastropexy PAST SURGICAL HISTORY:? H/O colonoscopy History of esophagogastroduodenoscopy (EGD) History of inferior vena caval filter placement History of hysterectomy PROCEDURE: upper endoscopy, laparoscopic sleeve gastrectomy and gastropexy DISCHARGE SUMMARY: History of Present Illness: The patient is a?60 year-old woman with a BMI of?50.8 kg/m2 and associated co- morbidities as described above. The patient had extensive work-up, lost?27.1 lbs preoperatively and was electively scheduled for laparoscopic, possible open sleeve gastrectomy and gastropexy. Risks and complications of the surgery were discussed with the patient in advance, particularly the possibility of , pulmonary embolism, anastomotic leak, bleeding, bowel injury, GERD, cardiac, renal or pulmonary complications. The patient understood all the risks and was in agreement with the surgical plan. Hospital Course: The patient underwent an uneventful laparoscopic sleeve gastrectomy with gastropexy on the day of admission. Postoperatively, the patient was transferred to the surgical floor. The patient received IV acetaminophen and IV Dilaudid for pain control. Patient was started on bariatric phase 1 diet POD #0. On postoperative day one, the patient was feeling well without nausea, vomiting, fevers, or tachycardia. The patient had some mild incisional pain and the abdomen was soft.? ? On the morning of postoperative day one, the patient was continued on 1 ounce of water or ice every half hour. During the day, the patient did fairly well, having some incisional pain, but able to ambulate adequately and to tolerate liquids well. Since the patient is doing well, we decided that the patient was ready to be discharged. The patient was given instructions to follow-up in office next week and to call the office for any fever over 101, persistent abdominal pain, nausea, vomiting, GERD, symptoms of DVT such as calf tenderness, or leg swelling, or pulmonary embolism such as chest pain or shortness of breath.? The patient was also instructed to drink 40-60 ounces of liquids per day using the 1-ounce cups. The patient had been given prescriptions for Tylenol for pain, Zofran prn for nausea, and pantoprazole and carafate previously. The patient was encouraged to ambulate and use the incentive spirometer. The patient was allowed to shower, but no baths, and encouraged to stay active at home. All of these instructions were given to the patient personally. All questions were answered and the patient understood all instructions, the instructions were also given to the patient in print. Time Attestation Discharge Coordination Time (in mins): 30 Quality: Safe Use of Opioids Does Pt have an Active Cancer Diagnosis on the Problem List?: No Quality: Stroke Does the patient have a stroke diagnosis?: No Physical Exam Vital Signs: Vital Signs: Last Vital Signs Temp 98.5 F 07/06/25 09:53 Pulse 69 07/06/25 10:03 Resp 13 07/06/25 10:03 BP 128/61 07/06/25 10:03 Pulse Ox 96 07/06/25 10:03 O2 Del Method Nasal Cannula 07/06/25 10:03 O2 Flow Rate 6 07/06/25 10:03 BMI result Body Mass Index 50.8 DS: Data Data Completed and Pending Completed studies during hospitalization [Text1]: Procedures Insertion of Intraluminal Device into Inferior Vena Cava, Percutaneous Approach (08/13/21) Pending studies at discharge: Pending at discharge 07/06/25 09:13 Surgical [PTH] Routine Discharge Plan Discharge Anticipated Discharge Date/Time: 07/06/25 10:05 Patient Disposition: Home, Self-Care Discharge Diagnosis: s/p laparoscopic sleeve gastrectomy with gastropexy Referrals: Aretha Bain, PROGRAMMING COORDINATOR [Primary Care Provider, [facility]] - 1 Week Discharge Medications: Continued lamotrigine 100 mg tablet 2.5 tab PO DAILY clonazepam 1 mg tablet 1 tab PO BID venlafaxine 150 mg capsule,extended release 24hr 300 mg PO DAILY risperidone 1 mg tablet 1 mg PO BEDTIME sucralfate 100 mg/mL suspension 10 ml PO BID Qty: 600 2RF pantoprazole 40 mg tablet,delayed release (DR/EC) 40 mg PO DAILY Qty: 90 0RF ondansetron 4 mg tablet,disintegrating 4 mg PO Q12H Qty: 20 0RF Rx Instructions: Only take one every 12 hours as needed if you have nausea Held warfarin 5 mg tablet 5 mg PO DAILY Hold Instructions: Resume on 07/07/25. Only resume when given instructions to do so by Dr. Mccarthy losartan 100 mg tablet 100 mg PO DAILY Hold Instructions: Resume on 07/07/25. Only resume according to parameters given by Dr. Mccarthy Discontinued thiamine HCl (vitamin B1) 100 mg tablet 100 mg PO DAILY Qty: 90 0RF Zepbound 5 mg/0.5 mL pen injector 5 mg subcut QWEEK Qty: 2 0RF cholecalciferol (vitamin D3) [Vitamin D3] 50 mcg (2,000 unit) Tablet 2,500 unit PO DAILY omeprazole 40 mg capsule,delayed release(DR/EC) 40 mg PO DAILY fondaparinux 2.5 mg/0.5 mL syringe 2.5 mg subcut Q24H Qty: 5 0RF Rx Instructions: Start on 06/30/25 and use one per day until 07/05/25. Do not take on 07/06/25. polyethylene glycol 3350 17 gram/dose powder 17 g PO DAILY Qty: 238 0RF Rx Instructions: Mix each measuring cup with 8oz of water, Crystal light, or Gatorade zero, or Propel and do 7 measuring cups on 07/04/25 and another 7 measuring cups on 07/05/25 Discharge Orders: Discharge Order (Routine); Ordered 07/07/25 Ordered By: Jarvis Mccarthy Activity on Discharge: No heavy lifting Stand Alone Forms: Patient Portal Discharge page Print Language: Nigerian Care Plan Goals: weight loss Health Concerns: morbid obesity Plan of Treatment: No tub baths, sex or returning to work until discussed at first post op appointment. No alcohol, tobacco or illegal drug use. Continue to use incentive spirometer hourly while awake. Walk in home for 5- 10 minutes every 2 hours during the first week. Wear abdominal binder with activity. Follow all meal plan instructions from your bariatric surgeon. Review bariatric handbook and call with any questions. Discharge Instructions 1. Please call your doctor or come back to the emergency room should any new symptoms arise. 2. Activity: abstain from alcohol,? limited stair climbing, no bending, no driving, no exercise, no illicit substances, no lifting, no sex, no tub bath, no work. 4. Diet: follow your bariatric surgeon's recommendations for advancing diet. 5. Dressing Change/Wound Care: Your incisions are covered with waterproof dressings. You can shower with these and pat dry. Do not rub over dressings or incisions. If the area is tender, you may apply an ice pack for short intervals (no more than 20 minutes on, followed by at least 20 minutes off). Do not apply heat. Do not use creams, lotions, or topical antibiotics unless instructed to do so by your surgeon. 6. Call your doctor if: - Your temperature exceeds 101.5 F - You experience excessive pain or swelling - You have an unexpected reaction to medication - You have excessive bleeding - You experience continued vomiting/nausea - Your incision begins to separate - Your incision shows signs of infection such as increased redness, swelling, excessive pain, heat, or drainage (light blood or clear fluid is normal) General instructions: No lifting greater than 10 lbs for the next 6 weeks[address] within 24 hours of taking narcotic pain medications. If you do not move your bowels in the next 2 days, please take milk of magnesia over the counter. Please follow the post op diet and do not advance your diet until instructed by your surgeon or until you are seen in the office in about 1 week. Please walk around your home every hour or two to prevent blood clots from forming in your legs. You do not need to wake from sleeping to walk. Please sleep in a bed or couch to prevent kinking at the hips and knees. Please take your incentive spirometer (your lung affiliate marketing specialist) home with you and use it for the next few days to prevent pneumonias. You may shower; no hot tubs, baths or swimming pools. Please make sure you are consuming 40-60 ounces of total fluids per day. Avoid all carbonation. Please call the office with any questions or concerns such as increasing abdominal pain, fever, chills, shortness of breath, chest pain, leg pain or swelling, or redness or drainage from your incisions. Do not hesitate to contact the office with any questions at . The patient's medical history has been reviewed and they are considered low risk for post op DVT and therefore DVT prophylaxis is not considered necessary. Travel after surgery was reviewed. The patient has not disclosed any travel plans during the first 30 days after surgery and they have been advised that within the first 30 days after surgery any bus, plane, train or car travel over 2 hours in duration is contraindicated due to the possibility of developing blood clots from immobility. Any travel, needs to include periods of ambulation of 10 minutes in duration every 2 hours.? The patient was instructed to discuss any plans for travel during this period with their bariatric surgeon. Assessment: s/p laparoscopic sleeve gastrectomy with gastropexy Discharge Date/Time: 07/07/25 09:26
[2025-07-06] MEDS: Lactated Ringers 1,000 ML 100 ML IVCONT ×2 (11:04→20:55)
[2025-07-06] MEDS: 0.9 % Sodium Chloride Flush 3 ML SYRINGE IVFLUSH (15:52)
[2025-07-07 03:00] VITALS: BP 133/73; PULSE 71; RESP 18; TEMP 36.2; O2SAT 97
[2025-07-07] MEDS: Lactated Ringers 1,000 ML 100 ML IVCONT (06:27)
[2025-07-07 06:30] LABS: MANUAL DIFF FLAG NO
[2025-07-07 06:38] LABS: Hematocrit 39.2 % (37.0-47.0); Hemoglobin 13.2 g/dl (12.0-16.0); Imm Gran Abs Auto 0.12 X10*3/uL (0.00-0.03); Imm Gran Pct Auto 0.8 % (0.0-0.4); Lymphocytes Absolute Auto 1.2 X10*3/uL (1.2-4.9); Mean Corpuscular HGB Conc 33.7 g/dl (31.0-35.0); Mean Corpuscular Hemoglobin 29.3 pg (27.0-33.0); Mean Corpuscular Volume 86.9 fL (80.0-98.0); NRBC Abs Auto 0.000 X10*3/uL (0.0-0.012); NRBC Pct Auto 0.0 /100WBC (0.0-0.2); Platelet Count 290 X10*3/uL (160-400); Red Blood Count 4.51 X10*6/uL (4.20-5.50); White Blood Count 14.4 X10*3/uL (4.8-10.8)
[2025-07-07 06:55] LABS: Anion Gap 9 (12-20); Blood Urea Nitrogen 14 mg/dL (9-16); Calcium 8.9 mg/dL (8.4-10.2); Carbon Dioxide 26 mmol/L (22-29); Chloride 112 mmol/L (96-108); Creatinine Clr Calc Pharmacy 89.7; Estimated Glomerular Filt Rate > 60; Potassium 4.3 mmol/L (3.3-5.1); Sodium 143 mmol/L (135-145)
[2025-07-07 07:00] VITALS: BP 135/80; PULSE 75; RESP 18; TEMP 36.4; O2SAT 96
[2025-07-07] MEDS: Venlafaxine HCl ER 150 MG CAP.ER.24H 300 MG PO (07:37)
[2025-07-07] MEDS: 0.9 % Sodium Chloride Flush 3 ML SYRINGE IVFLUSH (07:38)
--- NOTE | 2025-07-07 08:29 | HO.POSTANES ---
Post Anesthesia Evaluation Post Anesthesia Evaluation Date of Service: 07/07/25 Vital Signs: Vital Signs Temp Pulse Resp BP Pulse Ox O2 Del Method 07/07/25 07:00 97.6 F 75 18 135/80 96 Room Air 07/07/25 03:00 97.2 F 71 18 133/73 97 Room Air 07/06/25 23:00 98.4 F 80 18 122/59 L 97 Room Air Anesthesia: General Mental Status: Awake Pain Control: Satisfactory Nausea/Vomiting: None Hydration: Adequate Anesthesia-Related Issues: No Anes. Related Issues
--- NOTE | 2025-07-07 09:33 | MHC.CM.PN ---
Patient dc'd home self care via private transport prior to CM assessment.
== END 2025-07-07 09:26 | disposition home or self-care (01) | DRG 403 ==
LOC: HO.SSSA 06:28 → HO.S3 09:52
PROVIDERS: Surgery; Admitting Provider Physician Assistant Surgical; PCP Nurse Practitioner Family; Visit Provider Physician Assistant Surgical
PROC: 0DB64Z3 Excision of Stomach, Percutaneous Endoscopic Approach, Vertical (ICD-10-PCS; CPT 43845; principal; 2025-07-06 07:30)
DX: E66.01 Morbid (severe) obesity due to excess calories (principal); K76.0 Fatty (change of) liver, not elsewhere classified; Q43.3 Congenital malformations of intestinal fixation; F32.A Depression, unspecified; G47.33 Obstructive sleep apnea (adult) (pediatric); Z68.43 Body mass index [BMI] 50.0-59.9, adult; I10 Essential (primary) hypertension; M19.90 Unspecified osteoarthritis, unspecified site; F41.9 Anxiety disorder, unspecified; K21.9 Gastro-esophageal reflux disease without esophagitis; Z86.718 Personal history of other venous thrombosis and embolism; Z79.899 Other long term (current) drug therapy
CPT/HCPCS: 36415; 80048; 85014; 85018; 85025; 86850; 86900; 86901; 88304; 88307; 88342; A4649; C9145; J0131; J0690; J1100; J1171; J1308; J1920; J2003; J2250; J2405; J2704; J2795; J3010; J7120

== ENCOUNTER → 2025-07-06 06:25 | Outpatient (BNV) | payer OTHER, SELFPAY | PROVIDERS: Admitting Provider Physician Assistant Surgical; PCP Nurse Practitioner Family; Visit Provider Surgery | DX: E66.01 Morbid (severe) obesity due to excess calories (principal); Z68.43 Body mass index [BMI] 50.0-59.9, adult; F43.10 Post-traumatic stress disorder, unspecified; F32.9 Major depressive disorder, single episode, unspecified; F41.9 Anxiety disorder, unspecified; I10 Essential (primary) hypertension; I82.402 Acute embolism and thrombosis of unspecified deep veins of left lower extremity; I27.82 Chronic pulmonary embolism; K21.9 Gastro-esophageal reflux disease without esophagitis; M19.90 Unspecified osteoarthritis, unspecified site; G47.30 Sleep apnea, unspecified; K76.0 Fatty (change of) liver, not elsewhere classified; Z98.84 Bariatric surgery status; Q43.3 Congenital malformations of intestinal fixation | CPT/HCPCS: 43659; 43775; 99024 ==

== ENCOUNTER 2025-07-14 12:39 | Outpatient (AMB) | payer OTHER, SELFPAY ==
--- NOTE | 2025-07-14 12:54 | MHC.OFFVISWM ---
VS Expanded 07/14/25 13:13 BP 129/76 Blood Pressure Location Rt brachial Blood Pressure Position Sitting Pulse 87 Pulse Source Pulse Oximeter Temp 96.1 F L Temperature Source Temporal Artery Scan Pulse Oximetry 96 Oxygen Delivery Method Room Air Height 5 ft 3 in Weight 275 lb 3.2 oz BMI 48.7 Body Fat % 51.3 Body Fat Mass 141.0 Fat Free Mass 134.0 Visceral Fat Rating 19.0 Body Water % 34.6 Body Water Mass 95.2 Muscle Mass/Score 127.2 Basal Metabolic Rate/Score 1,925 Intake Visit Reasons: (OV) PO LSG 07/06/25 Allergies ciprofloxacin Allergy (Verified 07/14/25 13:15) rash nitrofurantoin (From Macrobid) Allergy (Verified 07/14/25 13:15) rash Sulfa (Sulfonamide Antibiotics) Allergy (Verified 07/14/25 13:15) rash quetiapine (From Seroquel) Adverse Reaction (Verified 07/14/25 13:15) suicidal ideation Medication List - Last Reconciled 07/14/25 by BRANDON Tidwell clonazepam 1 tab PO BID lamotrigine 2.5 tabs PO DAILY losartan 100 mg PO DAILY Held on 07/07/25. Instructions: Resume on 07/07/25. Only resume according to parameters given by Dr. Mccarthy ondansetron 4 mg PO Q12H pantoprazole 40 mg PO DAILY risperidone 1 mg PO BEDTIME sucralfate 10 mL PO BID venlafaxine ER 300 mg PO DAILY warfarin 5 mg PO DAILY Held on 07/07/25. Instructions: Resume on 07/07/25. Only resume when given instructions to do so by Dr. Mccarthy HPI Comments Details: Pt is s/p LSG 07/07/2025, 8d ago. No pain. No nausea. Tolerating Fairlife shakes, 3 bottles per day. Hydration is adequate, 40-60oz total per day, using Gatorade Zero and water. Warfarin- restarted 7.5mg today, also and Saturday; 5mg Saturday, Saturday; INR 1.2 today and will recheck Saturday morning; also has been taking fondaparinux to bridge since POD2. [facility] Medical History (Updated 07/14/25 @ 13:26 by BRANDON Tidwell) Steatosis, liver Hx pulmonary embolism Arthritis DJD (degenerative joint disease) Morbid obesity with BMI of 50.0-59.9, adult Sleep apnea treated with continuous positive airway pressure (CPAP) 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 DVT (deep venous thrombosis) History of sciatica NIURKA (generalized anxiety disorder) MDD (major depressive disorder), recurrent severe, without psychosis GERD (gastroesophageal reflux disease) Common variable immunodeficiency Hypertension Anxiety Depression PTSD (post-traumatic stress disorder) Surgical History (Updated 07/14/25 @ 13:16 by Skye Stewart CMA) S/P laparoscopic sleeve gastrectomy Hx of tonsillectomy (1975) H/O colonoscopy History of esophagogastroduodenoscopy (EGD) (05/26/25) History of inferior vena caval filter placement (08/14/21) History of hysterectomy (2003) Family History Mother Thyroid condition Acute ITP Anxiety Depression Father CHF (congestive heart failure) Enlarged heart Stomach cancer Social History Household Members: Family Household Members Other:: father Housing: House Are you a primary home care manager rn to a significant other at home: No Do you presently have visiting nurse or other home services: No 75 years or older and lives alone: No Alcohol intake: never Comment: Pt is A&O and ambulates independently w/walker Patient Tobacco Use Status: Never used Tobacco e-Cigarette/Vaping Use: Never Used service: No Current occupational status: employed Sexual orientation: did not discuss. Physical Exam Vital Signs: Last Vital Signs Temp 96.1 F L 07/14/25 13:13 Pulse 87 07/14/25 13:13 BP 129/76 07/14/25 13:13 Pulse Ox 96 07/14/25 13:13 Oxygen Delivery Method Room Air 07/14/25 13:13 BMI result Body Mass Index 48.7 Const General: cooperative, comfortable and no acute distress Orientation/consciousness: patient oriented x3 GI Other: soft, nontender, nondistended, steri-strips c/d/i Neuro General: patient oriented x3 Assessment & Plan Assessment & Plan (1) S/P laparoscopic sleeve gastrectomy: Code(s): Z98.84 - Bariatric surgery status Category: Surgical (2) Morbid obesity: Code(s): E66.01 - Morbid (severe) obesity due to excess calories Category: Medical Plan May shower tomorrow but no bath or submersion of abdomen in water. May start exercise tomorrow.? No abdominal exercises x 6 weeks. Abdominal binder for the next 2 weeks with activity or exercise. Continue meal plan per Dr Cuenca until next f/u in 5 weeks. Reviewed pantoprazole and carafate dosing. Reminded of the pace of drinking 2 mL/min or 1oz per 15 min. Continue warfarin and fondaparinux bridge per Dr. Cuenca. INR recheck on Saturday. Will be emailed link for post op video for review.
[2025-07-14 13:13] VITALS: BP 129/76; PULSE 87; TEMP 35.6; O2SAT 96; BMI 48.7
--- OUTSIDE RECORDS SUMMARY | 2025-07-14 13:58 | XMS_ITS | Encounter Summary ---
Author Organization [facility] Address [address] [facility] [address] [place] [address] Phone Care Team Providers Care Mortar Carrier Name Role Phone Demond Roger MD Unavailable [phone] FeltTianna ng MD Unavailable [phone] Yasmeen Ward MD Unavailable [email or web address] Meghna Parson MD Primary Care Provi vipin Madalyn Rogers MD Primary Care Provide r Meghna Parson MD Primary Care Provi vipin Macho Vincent DO Unavailable Camila Nayak LOAN ANALYST Unavailable Mile Reynolds GRAPHICS SPECIALIST Unavailable Marian Alicia MD Primary Care Provider [phone] Encounter Details Date Type Department Care Team (Late st Contact Info) Description 12/10/2018 Ancillary Orders [facility], X-Ray - [address] [address] Meghna Parson MD [address] [place], [place] [id number] [email or web address] Social History Tobacco Use Types Packs/Day [...] joints. Facet arthritic changes notable L3 through [id number]. IMPRESSION: No evidence for acute fracture. Degenerative [...] joints. Facet arthritic changes notable L3 through [id number]. IMPRESSION: No evidence for acute fracture. Degenerative [...] documented as of this encounter Care Teams Mortar Carrier Relationship Specialty Start Date End Date Meghna Parson MD [email or web address] PCP - General Internal Medicine 08/19/17 11/29/19 Madalyn Rogers MD [address] [place] [address] PCP - General 11/30/19 12/30/20 Meghna Parson MD [email or web address] PCP - General Internal Medicine 12/31/20 01/04/22 Marian Alicia MD [address] [place] [address], [address] [place] [address] [email or web address] PCP - General Family Medicine 01/05/22 Demond Roger MD [address] [place] [address] [email or web address] Historical LMR Provider 02/24/15 10/21/21 Tianna Coello MD [address] [place] [address] [email or web address] Historical LMR Provider 02/24/15 10/21/21 Yasmeen Ward MD [email or web address] Historical LMR Provider 02/24/1510/21 Macho Vincent DO [address] [place] [address] [email or web address] Primary Oncologist Hematology and Oncology 09/13/21 Camila Nayak FNP [address] [place] [address] [email or web address] Nurse Practitioner Medical Oncology 11/03/21 Mile Reynolds CNP [address] [place] [address] [email or web address] Nurse Practitioner Medical Oncology 11/03/21 documented as of this encounter Additional Source Comments The information contained in this document represents components of the legal health record. It is not the complete legal health record.[facility]
--- OUTSIDE RECORDS SUMMARY | 2025-07-14 13:58 | XMS_ITS | Encounter Summary ---
Author Organization [facility] Address [address] [facility] [address] [place] [address] Phone Care Team Providers Care Electrical Machine Builder Name Role Phone Demond Roger MD Unavailable [phone] FeltTianna ng MD Unavailable [phone] Yasmeen Ward MD Unavailable [email or web address] Meghna Parson MD Primary Care Provi vipin Madalyn Rogers MD Primary Care Provide r Meghna Parson MD Primary Care Provi vipin Macho Vincent DO Unavailable [phone] Camila Nayak FILTERS ASSEMBLER Unavailable Mile Reynolds MERCURY WASHER Unavailable Marian Alicia MD Primary Care Provider [phone] Encounter Details Date Type Department Care Team (Late st Contact Info) Description 10/28/2018 Transcribe Orders [facility] Specimen Processing [address] [place] [address] Meghna Parson MD [address] [place], [place] [id number] [email or web address] Urinary tract infection without hematuria, site unspecified [...] Specimen Source/ Description URINE CLEAN CATCH URINE [facility] Special Requests None [facility] GRAM STAIN NO ORGANISMS SEEN [facility] Culture/Test 10,000 to 100,000 colony forming units per ml MIXED HAYLEE (3 OR MORE COLONY TYPES) Culture indicates contamination . Please resubmit if necessary.(A) [facility] Report Status 10/30/2018 FINAL [facility] Urine (Urine) 10/28/2018 4:3 7 PM EST 10/28/2018 4:39 PM EST us Meghna Parson MD MICROBIOLOGY - GENE [facility] ORDERABLES Final Result [facility] [address] [place] [address] * (ABNORMAL) Urinalysis (10/28/2018 4:37 PM EST) COLOR Yellow Yellow [facility] CLARITY Clear [facility] GLUCOSE Negative Negative [facility] BILI Negative Negative [facility] KETONES Negative Negative [facility] SPECIFIC GRAVITY 1.010 1.005 - 1.030 [facility] BLOOD Negative Negative [facility] PH 6.0 5.0 - 8.0 [facility] Protein-UA Negative Negative [facility] NITRITE Negative Negative [facility] Leukocyte esterase, ur Trace(A) Negative [facility] Urine (Urine) 10/28/2018 4:3 7 PM EST 10/28/2018 4:39 PM EST Meghna Parson MD URINE ORDERABLES Fi nal Result [facility] [address] [place] [address] documented in this encounter Visit Diagnoses Diagnosis [...] as of this encounter Care Teams Electrical Machine Builder Relationship Specialty Start Date End Date Meghna Parson MD [email or web address] PCP - General Internal Medicine 08/19/17 11/29/19 Madalyn Rogers MD [address] [place] [address] PCP - General 11/30/19 12/30/20 Meghna Parson MD [email or web address] PCP - General Internal Medicine 12/31/20 01/04/22 Marian Alicia MD [address] [place] [address] [address] [place] [address] PCP - General Family Medicine 01/05/22 Demond Roger MD [address] [place] [address] [email or web address] Historical LMR Provider 02/24/15 10/21/21 Tianna Coello MD [address] [place] [address] [email or web address] Historical LMR Provider 02/24/15 10/21/21 Yasmeen Ward MD [email or web address] Historical LMR Provider 02/24/1510/21 Macho Vincent DO [address] [place] [address] [email or web address] Primary Oncologist Hematology and Oncology 09/13/21 Camila Nayak FNP [address] [place] [address] Nurse Practitioner Medical Oncology 11/03/21 Mile Reynolds CNP [address] [place] [address] [email or web address] Nurse Practitioner Medical Oncology 11/03/21 documented as of this encounter Additional Source Comments The information contained in this document represents components of the legal health record. It is not the complete legal health record.[facility]
--- OUTSIDE RECORDS SUMMARY | 2025-07-14 13:59 | XMS_ITS | Encounter Summary ---
Author Organization [facility] Address [address] [address] [place] [address] Phone Care Team Providers Care Vice President Of Brand Management Name Role Phone Demond Roger MD Unavailable [phone] FeltTianna ng MD Unavailable [phone] Yasmeen Ward MD Unavailable [email or web address] Meghna Parson MD Primary Care Provi vipin Madalyn Rogers MD Primary Care Provide r Meghna Parson MD Primary Care Provi vipin Macho Vincent DO Unavailable Camila Nayak AUXILIARY PLANT OPERATOR Unavailable Mile Reynolds PERFORMING ARTIST Unavailable Marian Alicia MD Primary Care Provider [phone] Encounter Details Date Type Department Care Team (Latest Contact Info) Description 07/21/2018 Transcribe Orders [facility] Laboratory [address] [place] [address] Steven Trinidad, DO [address] [facility], [address] [place] [address] [email or web address] Hypogammaglobulinemia (Primary Dx) Social History [...] IgA, IgM (07/21/2018 10:41 AM EDT) Pathologist [facility] IMMUNOGLOBULIN G 478(L) 700 - 1,600 mg/dL [facility] IgA 67(L) 70 - 400 mg/dL [facility] IMMUNOGLOBULIN M 43 40 - 230 mg/dL [facility] Blood 07/21/2018 10:4 1 AM EDT 07/21/2018 10:52 AM EDT us Steven Trinidad DO LAB BLOOD ORDERABLES Final R esult [facility] [address] [place] [address] * (ABNORMAL) IgG subclasses (07/21/2018 10:41 AM EDT) Pathologist [facility] IGG 1 217(L) 341 - 894 mg/dL [facility] DPT OF LAB MED AND PAT+ IGG 2 181 171 - 632 mg/dl [facility] OF LAB MED AND PAT+ IGG 3 85.1 18.4 - 106.0 mg/dl [facility] D[facility] OF LAB MED AND PAT+ IGG 4 10.7 2.4 - 121.0 mg/dl [facility] D[facility] OF LAB MED AND PAT+ TOTAL IGG 463(L) 767 - 1,590 mg/dl [facility] DPT OF LAB MED AND PAT+ Blood 07/21/2018 10:4 1 AM EDT 07/21/2018 10:51 AM EDT Steven Trinidad DO LAB BLOOD ORDERABLES Final R esult [facility] DPT OF LAB MED AND PAT+ [address] [place] [address] * (ABNORMAL) Monoclonal protein study, serum (07/21/2018 10:41 AM EDT) TOTAL PROTEIN 5.9(L) 6.3 - 7.9 g/dL [facility] DPT OF LAB MED AND PAT+ ALBUMIN 3.2(L) 3.4 - 4.7 g/dL [facility] DPT OF LAB MED AND PAT+ ALPHA-1 GLOBULIN 0.2 0.1 - 0.3 g/dL [facility] DPT OF LAB MED AND PAT+ ALPHA-2 GLOBULIN 1.0 0.6 - 1.0 g/dL [facility] DPT OF LAB MED AND PAT+ BETA-GLOBULIN 0.9 0.7 - 1.2 g/dL [facility] DPT OF LAB MED AND PAT+ GAMMA-GLOBULIN 0.5(L) 0.6 - 1.6 g/dL [facility] DPT OF LAB MED AND PAT+ A/G RATIO 1.19 [facility] OF LAB MED AND PAT+ M SPIKE Test component not applicable or not reported. not reported [facility] D[facility] OF LAB MED AND PAT+ M SPIKE Test component not applicable or not reported. not reported [facility] D[facility] OF LAB MED AND PAT+ IMPRESSION SEE NOTE [facility] OF LAB MED AND PAT+ Comment: (NOTE) Hypogammaglobulinemia See Immunofixation. IMMUNOFIXATION No monoclonal protein detected. [facility] DPT OF LAB MED AND PAT+ Blood 07/21/2018 10:4 1 AM EDT 07/21/2018 10:51 AM EDT Steven Trinidad DO LAB BLOOD ORDERABLES Final R esult [facility] DPT OF LAB MED AND PAT+ [address] [place] [address] * Tetanus antitoxoid antibody, IgG (07/21/2018 10:41 AM EDT) Tetanus Ab, IgG Positive [facility] LAB MED/PATH [facility] Comment: (NOTE) REFERENCE VALUE Vaccinated: Positive (>= 0.01 IU/mL) Unvaccinated: Negative (< 0.01 IU/mL) Tetanus IgG Value 1.97 IU/mL [facility] DEP LAB MED/PATH SUPERIOR Comment: (NOTE) ADDITIONAL INFORMATION This test was developed and its performance characteristics determined by [facility] in a manner consistent with CLIA requirements. This test has not been cleared or approved by the U.S. Food and Drug Administration. Blood 07/21/2018 10:4 1 AM EDT 07/21/2018 10:51 AM EDT Steven Trinidad LAB BLOOD ORDERABLES Final R esult [facility] LAB MED/PATH [facility] [address] [place] [address] * (ABNORMAL) Comprehensive metabolic panel (07/21/2018 10:41 AM EDT) Pathologist [facility] SODIUM 145 133 - 146 mmol/L [facility] POTASSIUM 4.0 3.3 - 5.1 mmol/L [facility] CHLORIDE 106 96 - 108 mmol/L [facility] CO2 28 21 - 35 mmol/L [facility] BUN 14 6 - 19 mg/dL [facility] CREATININE 1.00 0.5 - 1.5 mg/dL [facility] GLUCOSE 84 70 - 99 mg/dL [facility] ALBUMIN 4.1 3.9 - 4.8 g/dL [facility] TOTAL PROTEIN 6.1(L) 6.5 - 8.0 g/dL [facility] CALCIUM 9.6 8.4 - 10.3 mg/dL [facility] ALKALINE PHOSPHATASE 70 39 - 117 U/L [facility] TOTAL BILIRUBIN 0.3 0.0 - 1.2 mg/dL [facility] AST 21 0 - 37 U/L [facility] ALT 14 0 - 40 U/L [facility] GLOBULIN 2.0 1 - 4.8 g/dL [facility] EGFR 65 >59 mL/min/1.7 3m2 [facility] Comment:If patient is black, multiply result by 1.159. Estimated glomerular filtration rate calculated using the CKD-EPI equation. ANION GAP 15 10 - 20 mmol/L [facility] Blood 07/21/2018 10:4 1 AM EDT 07/21/2018 10:52 AM EDT us Steven Trinidad DO LAB BLOOD ORDERABLES Final R esult [facility] [address] [place] [address] * (ABNORMAL) CBC and differential (07/21/2018 10:41 AM EDT) WBC 7.14 3.40 - 11.20 K/uL [facility] RBC 4.86(H) 3.80 - 4.80 M/uL [facility] HGB 14.6 12.0 - 15.0 g/dL [facility] HCT 43.4 36.0 - 46.0 % [facility] PLT 259 130 - 400 K/uL [facility] MCV 89.3 79.0 - 98.0 fL [facility] MCH 30.0 27.0 - 34.8 pg [facility] MCHC 33.6 31.5 - 36.0 g/dL [facility] RDW 13.0 10.8 - 14.6 % [facility] MPV 10.0 9.4 - 12.4 fl [facility] NRBC 0.00 /100 WBCs [facility] ABSOLUTE NRBC 0.00 K/uL [facility] DIFF METHOD Auto [facility] NEUTS 58.4 45.30 - 77.70 % [facility] LYMPHS 32.5 12.30 - 39.70 % [facility] MONOS 6.7 4.10 - 12.80 % [facility] EOS 1.5 0 - 7.2 % [facility] BASOS 0.3 0 - 2.80 % [facility] Granulocytes, immature (%) 0.6 0.0 - 0.9 % [facility] ABSOLUTE NEUTS 4.17 1.40 - 7.70 K/uL [facility] ABSOLUTE LYMPHS 2.32 0.60 - 3.20 K/uL [facility] ABSOLUTE MONOS 0.48 0.11 - 0.59 K/uL [facility] ABSOLUTE EOS 0.11 0.01 - 0.50 K/uL [facility] ABSOLUTE BASOS 0.02 0.00 - 0.08 K/uL [facility] Granulocytes, immature 0.04 0.00 - 0.05 K/uL [facility] Blood 07/21/2018 10:4 1 AM EDT 07/21/2018 10:52 AM EDT Steven Trinidad DO LAB BLOOD ORDERABLES Final R esult Performing Organization Address City/State/[facility] Co de Phone Number [address] [address] documented in this encounter Visit Diagnoses Diagnosis Hypogammaglobulinemia- Primary Unspecified hypogammaglobulinemia documented in this encounter Additional Health Concerns Infection Onset Date Last Indicated Resolved Time CoV-Exposed Comment:Recent close contact documented in the COVID-19 PCR/PRO order 09/25/2021 10/03/2021 10/10/2021 1:[address] CoV-Presumed 10/09/2022 10/09/2022 10/30/2022 1:21 AM EST CoV-Risk 03/01/2023 03/01/2023 03/12/2023 1:22 AM EDT documented as of this encounter Care Teams Vice President Of Brand Management Relationship Specialty Start Date End Date Meghna Parson MD [email or web address] PCP - General Internal Medicine 08/19/17 11/29/19 Madalyn Rogers MD [address] [place] [address] PCP - General 11/30/19 12/30/20 Meghna Parson MD [email or web address] PCP - General Internal Medicine 12/31/20 01/04/22 Marian Alicia MD [address] [place] [address] [address] [place] [address] [email or web address] PCP - General Family Medicine 01/05/22 Demond Roger MD [address] [place] [address] [email or web address] Historical LMR Provider 02/24/15 10/21/21 Tianna Coello MD [address] [place] [address] [email or web address] Historical LMR Provider 02/24/15 10/21/21 Yasmeen Ward MD [email or web address] Historical LMR Provider 02/24/1510/21 Macho Vincent DO [address] [place] [address] [email or web address] Primary Oncologist Hematology and Oncology 09/13/21 Camila Nayak FNP [address] [place] [address] [email or web address] Nurse Practitioner Medical Oncology 11/03/21 Mile Reynolds CNP [address] [place] [address] [email or web address] Nurse Practitioner Medical Oncology 11/03/21 documented as of this encounter Additional Source Comments The information contained in this document represents components of the legal health record. It is not the complete legal health record.[facility]
--- OUTSIDE RECORDS SUMMARY | 2025-07-14 14:00 | XMS_ITS | Encounter Summary ---
Author Organization [facility] Address 399 [facility] [address] [place] [address] Phone Care Team Providers Care Train Operator Name Role Phone Demond Roger MD Unavailable [phone] FeltTianna ng MD Unavailable [phone] Yasmeen Ward MD Unavailable [email or web address] Meghna Parson MD Primary Care Provi vipin Madalyn Rogers MD Primary Care Provide r Meghna Parson MD Primary Care Provi vipin Macho Vincent DO Unavailable [phone] Camila Nayak COMMUNITY DIETITIAN Unavailable Mile Reynolds DIAGNOSTIC CARDIAC SONOGRAPHER Unavailable Marian Alicia MD Primary Care Provider [phone] Encounter Details Date Type Department Care Team (Late st Contact Info) Description 07/31/2018 Ancillary Orders Virtual Department 30 [place] [address] Meghna Parson MD [address] [place], [place] [phone] [email or web address] Breast screening Social History Tobacco [...] There are scattered fibroglandular densities. POS - [id number] Narrative 09/05/2018 9:29 AM EST Bilateral mammography [...] There are scattered fibroglandular densities. POS - [id number] Meghna Parson MD IMG MG EXAMS Fin [...] as of this encounter Care Teams Train Operator Relationship Specialty Start Date End Date Meghna Parson MD [email or web address] PCP - General Internal Medicine 08/19/17 11/29/19 Madalyn Rogers MD [address] [place] [address] PCP - General 11/30/19 12/30/20 Meghna Parson MD [email or web address] PCP - General Internal Medicine 12/31/20 01/04/22 Marian Alicia MD [address] [place] [address], [address] [place] [address] PCP - General Family Medicine 01/05/22 Demond Roger MD [address] [place] [address] [email or web address] Chao LMR Provider 02/24/15 10/21/21 Tianna Coello MD [address] [place] [address] [email or web address] Historical LMR Provider 02/24/15 10/21/21 Yasmeen Ward MD [email or web address] Historical LMR Provider 02/24/1510/21 Macho Vincent DO [address] [place] [address] [email or web address] Primary Oncologist Hematology and Oncology 09/13/21 Camila Nayak FNP [address] [place] [address] [email or web address] Nurse Practitioner Medical Oncology 11/03/21 Miel Reynolds CNP [address] [place] [address] [email or web address] Nurse Practitioner Medical Oncology 11/03/21 documented as of this encounter Additional Source Comments The information contained in this document represents components of the legal health record. It is not the complete legal health record.[facility]
--- OUTSIDE RECORDS SUMMARY | 2025-07-14 14:00 | XMS_ITS | Encounter Summary ---
Author Organization [facility] Address [address] [address] Phone Care Team Providers Care Self Storage Manager Name Role Phone Demond Roger MD Unavailable [phone] FeltTianna ng MD Unavailable [phone] Yasmeen Ward MD Unavailable [email or web address] Meghna Parson MD Primary Care Provi vipin Madalyn Rogers MD Primary Care Provide r Meghna Parson MD Primary Care Provi vipin Macho Vincent DO Unavailable [phone] Camila Nayak SUPERVISOR UNLOADING Unavailable [phone] Reynolds SENIOR CENTER MANAGER Unavailable Marian Alicia MD Primary Care Provider [phone] Reason for Referral * Physical Therapy (Routine) - Closed Specialty Diagnoses / Procedures Referred By Thompson t Referred To Contact Physical Therapy Diagnoses SI (sacroiliac) pain Meghna Parson MD Phone: tel: mailto:[email or web address] [address] [place] [address] Phone: tel: Referral ID Status Reason Start Date Expiration Date Visits Re quested Visits Authorized [id number] Closed 01/27/2019 01/28/2020 1 1 Encounter Details Date Type Department Care Team (Latest Contact Info) Description 01/27/2019 Transcribe Orders [facility] [address] [place] [address] Meghna Parson MD [address] [place] [address] SI (sacroiliac) pain (Primary Dx) Social History [...] Associated Diagnoses Order Schedule Ambulatory referral to [facility] Physical Therapy Outpatient Referral Routine SI (sacroiliac) [...] documented as of this encounter Care Teams Self Storage Manager Relationship Specialty Start Date End Date Meghna Parson MD [email or web address] PCP - General Internal Medicine 08/19/17 11/29/19 Madalyn Rogers MD [address] [place] [address] PCP - General 11/30/19 12/30/20 Meghna Parson MD [email or web address] PCP - General Internal Medicine 12/31/20 01/04/22 Marian Alicia MD [address] [place] [address] [email or web address] PCP - General Family Medicine 01/05/22 Demond Roger MD [address] [place] [address] [email or web address] Historical LMR Provider 02/24/15 10/21/21 Tianna Coello MD [address] [place] [address] [email or web address] Historical LMR Provider 02/24/15 10/21/21 Yasmeen Ward MD [email or web address].[facility] Historical LMR Provider 02/24/1510/21 Macho Vincent DO [address] [place] [address] [email or web address]. [facility] Primary Oncologist Hematology and Oncology 09/13/21 Camila Nayak FNP [address] [place] [address] [email or web address] Nurse Practitioner Medical Oncology 11/03/21 Mile Reynolds CNP [address] [place] [address] [email or web address] Nurse Practitioner Medical Oncology 11/03/21 documented as of this encounter Additional Source Comments The information contained in this document represents components of the legal health record. It is not the complete legal health record.[facility]
--- OUTSIDE RECORDS SUMMARY | 2025-07-14 14:00 | XMS_ITS | Encounter Summary ---
Author Organization [facility] Address [address] [facility] [address] [place] [address] Phone Care Team Providers Care Cotton Converter Name Role Phone Demond Roger MD Unavailable [phone] FeltTianna ng MD Unavailable [phone] Yasmeen Ward MD Unavailable [email or web address] Meghna Parson MD Primary Care Provi vipin Madalyn Rogers MD Primary Care Provide r Meghna Parson MD Primary Care Provi vipin Macho Vincent DO Unavailable Camila Nayak LEAD SECTION SUPERVISOR Unavailable [phone] RUBBER PRINTING MACHINE OPERATOR Unavailable Marian Alicia MD Primary Care Provider [phone] Encounter Details Date Type Department Care Team (Late st Contact Info) Description 01/26/2019 Ancillary Orders [facility], X-Ray - [address] [address] Meghna Parson MD [address] [place], [place] [phone] [email or web address] Hip pain, left Social History Tobacco Use [...] documented as of this encounter Care Teams Cotton Converter Relationship Specialty Start Date End Date Meghna Parson MD [email or web address] PCP - General Internal Medicine 08/19/17 11/29/19 Madalyn Rogers MD [address] [place] [address] PCP - General 11/30/19 12/30/20 Meghna Parson MD [email or web address] PCP - General Internal Medicine 12/31/20 01/04/22 Marian Alicia MD [address] [place] [address] 7 [place] [address] PCP - General Family Medicine 01/05/22 Demond Roger MD [address] [place] [address] [email or web address] Historical LMR Provider 02/24/15 10/21/21 Tianna Coello MD [address] [place] [address] [email or web address] Historical LMR Provider 02/24/15 10/21/21 Yasmeen Ward MD [email or web address] Historical LMR Provider 02/24/1510/21 Macho Vincent DO [address] [place] [address] [email or web address] Primary Oncologist Hematology and Oncology 09/13/21 Camila Nayak FNP [address] [place] [address] Nurse Practitioner Medical Oncology 11/03/21 Mile Reynolds CNP [address] [place] [address] Nurse Practitioner Medical Oncology 11/03/21 documented as of this encounter Additional Source Comments The information contained in this document represents components of the legal health record. It is not the complete legal health record.[facility]
--- OUTSIDE RECORDS SUMMARY | 2025-07-14 14:02 | XMS_ITS | Encounter Summary ---
Author Organization [facility] Address [address] [facility] [address] [place] [address] Phone Care Team Providers Care Nurse Transitional Name Role Phone Demond Roger MD Unavailable [phone] FeltmateTianna MD Unavailable [phone] Yasmeen Ward MD Unavailable [email or web address] Meghna Parson MD Primary Care Provi vipin CarltonMacho gary W DO Unavailable [phone] Camila Nayak TAKER DOWN Unavailable [phone] GailTristanen SECURITY SUPPORT ANALYST Unavailable Marian Alicia MD Primary Care Provider [phone] Encounter Details Date Type Department Care Team (Late st Contact Info) Description 10/10/2021 Ancillary Orders Virtual Department 30 [place] [address] Meghna Parson MD [address] [place], [place] [phone] [email or web address] Low back pain, unspecified back pain laterality, [...] documented as of this encounter Care Teams Nurse Transitional Relationship Specialty Start Date End Date Meghna Parson MD [email or web address] PCP - General Internal Medicine 12/31/20 01/04/22 Marian Alicia MD [address] [place] [address] 7 [place] [address] [email or web address] PCP - General Family Medicine 01/05/22 Demond Roger MD [address] [place] [address] [email or web address] Historical LMR Provider 02/24/15 10/21/21 Tianna Coello MD [address] [place] [address] [email or web address] Historical LMR Provider 02/24/15 10/21/21 Yasmeen Ward MD [email or web address] Historical LMR Provider 02/24/1510/21 Macho Vincent DO 30 [place] [address] [email or web address] Primary Oncologist Hematology and Oncology 09/13/21 Camila Nayak FNP [address] [place] [address] [email or web address] Nurse Practitioner Medical Oncology 11/03/21 Mile Reynolds CNP [address] [place] [address] [email or web address] Nurse Practitioner Medical Oncology 11/03/21 documented as of this encounter Additional Source Comments The information contained in this document represents components of the legal health record. It is not the complete legal health record.[facility]
--- OUTSIDE RECORDS SUMMARY | 2025-07-14 14:02 | XMS_ITS | Encounter Summary ---
Author Organization [facility] Address [address] [facility] [address] [place] [address] Phone Care Team Providers Care Application Security Specialist Name Role Phone Demond Roger MD Unavailable [phone] FeltTianna ng MD Unavailable [phone] Yasmeen Ward MD Unavailable [email or web address] Meghna Parson MD Primary Care Provi vipin Madalyn Rogers MD Primary Care Provide r Meghna Parson MD Primary Care Provi vipin Macho Vincent DO Unavailable [phone] Camila Nayak FEED HANDLER Unavailable [phone] SALES DEPARTMENT CLERK Unavailable Marian Alicia MD Primary Care Provider [phone] Encounter Details Date Type Department Care Team (Late st Contact Info) Description 05/29/2018 Ancillary Orders [facility], X-Ray - [address] [address] SabasLondon MD [address] [facility] [address] [place], [place] [address] [email or web address] Category[facility]star [facility] Pain Social History Tobacco Use Types [...] documented as of this encounter Care Teams Application Security Specialist Relationship Specialty Start Date End Date Meghna Parson MD [email or web address] PCP - General Internal Medicine 08/19/17 11/29/19 Madalyn Rogers MD [address] [place] [address] PCP - General 11/30/19 12/30/20 Meghna Parson MD [email or web address] PCP - General Internal Medicine 12/31/20 01/04/22 Marian Alicia MD [address] [place] [address] [email or web address] PCP - General Family Medicine 01/05/22 Demond Roger MD [address] [place] [address] [email or web address] Historical LMR Provider 02/24/15 10/21/21 Tianna Coello MD [address] [place] [address] [email or web address] Historical LMR Provider 02/24/15 10/21/21 Yasmeen Ward MD [email or web address] Historical LMR Provider 02/24/1510/21 Macho Vincent DO [address] [place] [address] [email or web address] Primary Oncologist Hematology and Oncology 09/13/21 Camila Nayak FNP [address] [place] [address] [email or web address] Nurse Practitioner Medical Oncology 11/03/21 Mile Reynolds CNP [address] [place] [address] [email or web address] Nurse Practitioner Medical Oncology 11/03/21 documented as of this encounter Additional Source Comments The information contained in this document represents components of the legal health record. It is not the complete legal health record.[facility]
--- OUTSIDE RECORDS SUMMARY | 2025-07-14 14:02 | XMS_ITS | Encounter Summary ---
Author Organization [facility] Address [address] [facility] [address] [place] [address] Phone Care Team Providers Care Sagger Maker Name Role Phone Demond Roger MD Unavailable [phone] FeltmateTianna MD Unavailable [phone] Yasmeen Ward MD Unavailable [email or web address] Meghna Parson MD Primary Care Provi vipin CarltonMacho gary W DO Unavailable Camila Nayak ROUSTABOUT PUSHER Unavailable GailTristanen FORESTRY LABORER Unavailable Marian Alicia MD Primary Care Provider [phone] Encounter Details Date Type Department Care Team (Late st Contact Info) Description 10/04/2021 Transcribe Orders Virtual Department 30 [place] [address] Meghna Parson MD [address] [place], [place] [phone] [email or web address] Low back pain, unspecified back pain laterality, [...] documented as of this encounter Care Teams Sagger Maker Relationship Specialty Start Date End Date Meghna Parson MD [email or web address] PCP - General Internal Medicine 12/31/20 01/04/22 Marian Alicia MD [address] [place] [address], [address] [place] [address] [email or web address] PCP - General Family Medicine 01/05/22 Demond Roger MD [address] [place] [address] [email or web address] Historical LMR Provider 02/24/15 10/21/21 Tianna Coello MD [address] [place] [address] [email or web address] Historical LMR Provider 02/24/15 10/21/21 Yasmeen Ward MD [email or web address] Historical LMR Provider 02/24/1510/21 Macho Vincent DO [address] [place] [address] [email or web address] Primary Oncologist Hematology and Oncology 09/13/21 Camila Nayak FNP [address] [place] [address] [email or web address] Nurse Practitioner Medical Oncology 11/03/21 Mile Reynolds CNP [address] [place] [address] [email or web address] Nurse Practitioner Medical Oncology 11/03/21 documented as of this encounter Additional Source Comments The information contained in this document represents components of the legal health record. It is not the complete legal health record.[facility]
--- OUTSIDE RECORDS SUMMARY | 2025-07-14 14:02 | XMS_ITS | Encounter Summary ---
Author Organization [facility] Address 399 [facility] [address] [place] [address] Phone Care Team Providers Care Intake Manager Name Role Phone Dell Chiang MD Primary Care Provider [phone] Demond Roger MD Unavailable [phone] FeltTianna ng MD Unavailable [phone] Yasmeen Ward MD Unavailable [email or web address] Meghna Parson MD Primary Care Provi vipin Madalyn Rogers MD Primary Care Provide r Meghna Parson MD Primary Care Provi vipin Macho Vincent W DO Unavailable [phone] Camila Nayak SALES AND BUSINESS DEVELOPMENT MANAGER Unavailable [phone] Reynolds QUALITY MANAGEMENT NURSE Unavailable Marian Alicia MD Primary Care Provider [phone] Encounter Details Date Type Department Care Team (Late st Contact Info) Description 08/04/2017 Ancillary Orders [address] [address] Meghna Parson MD [address] [place] [address] [email or web address] Social History Tobacco Use Types Packs/Day Years [...] documented as of this encounter Care Teams Intake Manager Relationship Specialty Start Date End Date Dell Chiang MD [address] [facility] [address] [place] [address] PCP - General 02/18/15 08/18/17 Meghna Parson MD [email or web address] PCP - General Internal Medicine 08/19/17 11/29/19 Madalyn Rogers MD [address] [place] [address] PCP - General 11/30/19 12/30/20 Meghna Parson MD [email or web address] PCP - General Internal Medicine 12/31/20 01/04/22 Marian Alicia MD [address] [place] [address], [address] [place] [address] [email or web address] PCP - General Family Medicine 01/05/22 Demond Roger MD [address] [place] [address] [email or web address] Historical LMR Provider 02/24/15 10/21/21 Tianna Coello MD [address] [place] [address] [email or web address] Historical LMR Provider 02/24/15 10/21/21 Yasmeen Ward MD [email or web address] Historical LMR Provider 02/24/1510/21 Macho Vincent DO [address] [place] [address] [email or web address] Primary Oncologist Hematology and Oncology 09/13/21 Camila Nayak FNP [address] [place] [address] [email or web address] Nurse Practitioner Medical Oncology 11/03/21 Mile Reynolds CNP [address] [place] [address] [email or web address] Nurse Practitioner Medical Oncology 11/03/21 documented as of this encounter Additional Source Comments The information contained in this document represents components of the legal health record. It is not the complete legal health record.[facility]
--- OUTSIDE RECORDS SUMMARY | 2025-07-14 14:02 | XMS_ITS | Encounter Summary ---
Author Organization [facility] Address [address] [facility] [address] [place] [address] Phone Care Team Providers Care English As A Second Language Instructor Name Role Phone Demond Roger MD Unavailable [phone] FeltmateTianna MD Unavailable [phone] Yasmeen Ward MD Unavailable [email or web address] Meghna Parson MD Primary Care Provi vipin CarltonMacho gary W DO Unavailable [phone] Camila Nayak BUFFET WAITER/WAITRESS Unavailable Mile Reynolds FLEET MECHANIC Unavailable Marian Alicia MD Primary Care Provider [phone] Encounter Details Date Type Department Care Team (Late st Contact Info) Description 08/28/2021 Procedure [facility] [address] [place], [place] [phone] Social History Tobacco Use Types Packs/Day Years [...] documented as of this encounter Care Teams English As A Second Language Instructor Relationship Specialty Start Date End Date Meghna Parson MD [email or web address] PCP - General Internal Medicine 12/31/20 01/04/22 Marian Alicia MD [address] [place] [address] 7 [place] [address] [email or web address] PCP - General Family Medicine 01/05/22 Demond Roger MD [address] [place] [address] [email or web address] Historical LMR Provider 02/24/15 10/21/21 Tianna Coello MD [address] [place] [address] [email or web address] Historical LMR Provider 02/24/15 10/21/21 Yasmeen Ward MD [email or web address].[email or web address] Historical LMR Provider 02/24/1510/21 Macho Vincent DO [address] [place] [address] [email or web address]. [facility] Primary Oncologist Hematology and Oncology 09/13/21 Camila Nayak FNP [address] [place] [address] [email or web address] Nurse Practitioner Medical Oncology 11/03/21 Mile Reynolds CNP [address] [place] [address] [email or web address] Nurse Practitioner Medical Oncology 11/03/21 documented as of this encounter Additional Source Comments The information contained in this document represents components of the legal health record. It is not the complete legal health record.[facility]
--- OUTSIDE RECORDS SUMMARY | 2025-07-14 14:02 | XMS_ITS | Encounter Summary ---
Author Organization [facility] Address [address] [place] [address] Phone Care Team Providers Care Warehouse Driver Name Role Phone Aretha Bain NP Primary Care Provider [phone] Encounter Details Date Type Department Care Team (Late Contact Info) Description 08/12/2023 Documentation Only [facility] [address] [place] [phone] Marian Alicia MD [address] [place] [address] Social History Tobacco Use Types Packs/Day Years [...] Visit [facility] [address] [place] [phone] Jamison Avila MD [address] [place] [address] [place] [address] documented as of this encounter Visit Diagnoses Not on filedocumented in this encounter Care Teams Warehouse Driver Relationship Specialty Start Date End Date Aretha Bain NP [address] [place] [address] 1 [place] [address] PCP - General Nurse Practitioner 04/12/25 documented as of this encounter
--- OUTSIDE RECORDS SUMMARY | 2025-07-14 14:02 | XMS_ITS | Encounter Summary ---
Author Organization [facility] Address [address] [facility] [address] [place] [address] Phone Care Team Providers Care Die Cutter Name Role Phone Demond Roger MD Unavailable [phone] FeltTianna ng MD Unavailable [phone] Yasmeen Ward MD Unavailable [email or web address] Meghna Parson MD Primary Care Provi vipin Madalyn Rogers MD Primary Care Provide r Meghna Parson MD Primary Care Provi vipin Macho Vincent DO Unavailable Camila Nayak BRICK SORTER Unavailable Mile Reynolds PLY SPLICER Unavailable Marian Alicia MD Primary Care Provider [phone] Encounter Details Date Type Department Care Team (Late st Contact Info) Description 04/17/2018 Ancillary Orders [facility], X-Ray - [address] [address] Meghna Parson MD [address] [place], [place] [id number] [email or web address]) Cough; Wheezing Social History Tobacco Use Types [...] as of this encounter Care Teams Die Cutter Relationship Specialty Start Date End Date Meghna Parson MD [email or web address] PCP - General Internal Medicine 08/19/17 11/29/19 Madalyn Rogers MD [address] [place] [address] PCP - General 11/30/19 12/30/20 Meghna Parson MD [email or web address] PCP - General Internal Medicine 12/31/20 01/04/22 Marian Alicia MD [address] [place] [address] [email or web address] PCP - General Family Medicine 01/05/22 Demond Roger MD [address] [place] [address] [email or web address] Historical LMR Provider 02/24/15 10/21/21 Tianna Coello MD [address] [place] [address] [email or web address] Historical LMR Provider 02/24/15 10/21/21 Yasmeen Ward MD [email or web address] Historical LMR Provider 02/24/1510/21 Macho Vincent DO [address] [place] [address] [email or web address] Primary Oncologist Hematology and Oncology 09/13/21 Camila Nayak FNP [address] [place] [address] [email or web address] Nurse Practitioner Medical Oncology 11/03/21 Mile Reynolds CNP [address] [place] [address] [email or web address] Nurse Practitioner Medical Oncology 11/03/21 documented as of this encounter Additional Source Comments The information contained in this document represents components of the legal health record. It is not the complete legal health record.[facility]
--- OUTSIDE RECORDS SUMMARY | 2025-07-14 14:02 | XMS_ITS | Encounter Summary ---
Author Organization [facility] Address [address] [facility] [address] [place] [address] Phone Care Team Providers Care Assembler Wet Wash Name Role Phone Demond Roger MD Unavailable [phone] FeltTianna ng MD Unavailable [phone] Yasmeen Ward MD Unavailable [email or web address] Meghna Parson MD Primary Care Provi vipin Madalyn Rogers MD Primary Care Provide r Meghna Parson MD Primary Care Provi vipin Macho Vincent DO Unavailable Camila Nayak ELECTROMECHANICAL TECHNICIAN Unavailable [phone] Mile Reynolds TEST TECHNICIAN Unavailable Marian Alicia MD Primary Care Provider [phone] Encounter Details Date Type Department Care Team (Latest Contact Info) Description 05/29/2018 Transcribe Orders [facility] Specimen Processing [address] [place] [address] London Obregon MD [address] [facility] [address] [place], [place] [id number] [email or web address] Urinary tract infection without hematuria, site [...] EDT) Specimen Source/ Description URINE URINE URINE [facility] Special Requests None [facility] GRAM STAIN NO ORGANISMS SEEN [facility] Culture/Test 10,000 to 100,000 colony forming units per ml MIXED HAYLEE (3 OR MORE COLONY TYPES) Culture indicates contamination . Please resubmit if necessary. [facility] Report Status 05/31/2018 FINAL [facility] Urine (Urine) 05/29/2018 4:3 7 PM EDT 05/29/2018 4:39 PM EDT London Obregon MD MICROBIOLOGY - GENERAL ORDERABL ES Final Result [address] [address] * (ABNORMAL) Urinalysis (05/29/2018 4:37 PM EDT) COLOR STRAW(A) Yellow [facility] CLARITY Clear [facility] GLUCOSE Negative Negative [facility] BILI Negative Negative [facility] KETONES Negative Negative [facility] SPECIFIC GRAVITY <1.005 1.005 - 1.030 [facility] BLOOD Negative Negative [facility] PH 5.5 5.0 - 8.0 [facility] Protein-UA Negative Negative [facility] NITRITE Negative Negative [facility] Leukocyte esterase, ur Negative Negative [facility] Urine (Urine) 05/29/2018 4:3 7 PM EDT 05/29/2018 4:39 PM EDT London Obregon MD URINE ORDERABLES Final Result Performing Organization Address City/State/[facility] Co de Phone Number [facility] [address] [place] [address] documented in this encounter Visit Diagnoses Diagnosis [...] documented as of this encounter Care Teams Assembler Wet Wash Relationship Specialty Start Date End Date Meghna Parson MD [email or web address] PCP - General Internal Medicine 08/19/17 11/29/19 Madalyn Rogers MD [address] [place] [address] PCP - General 11/30/19 12/30/20 Meghna Parson MD [email or web address] PCP - General Internal Medicine 12/31/20 01/04/22 Marian Alicia MD [address] [place] [address] 7 [place] [address] PCP - General Family Medicine 01/05/22 Demond Roger MD [address] [place] [address] [email or web address] Historical LMR Provider 02/24/15 10/21/21 Tianna Coello MD [address] [place] [address] [email or web address] Historical LMR Provider 02/24/15 10/21/21 Yasmeen Ward MD [email or web address] Historical LMR Provider 02/24/1510/21 Macho Vincent DO [address] [place] [address] [email or web address] Primary Oncologist Hematology and Oncology 09/13/21 Camila Nayak FNP [address] [place] [address] Nurse Practitioner Medical Oncology 11/03/21 Mile Reynolds CNP [address] [place] [address] [email or web address] Nurse Practitioner Medical Oncology 11/03/21 documented as of this encounter Additional Source Comments The information contained in this document represents components of the legal health record. It is not the complete legal health record.[facility]
--- OUTSIDE RECORDS SUMMARY | 2025-07-14 14:02 | XMS_ITS | Clinical Summary ---
Author Organization [facility], Address [address] [place] [address] Phone Care Team Providers Care Chancery Clerk Name Role Phone Aretha Bain NP Primary Care Provider Allergies Active Allergy Reactions Criticality Noted Date [...] Last Assessment & Plan: Well-controlled, off lisinopril. Immunizations Immunization Administration Dates Next Due DT [...] Visit [facility], [address] [place] [address] Jamison Avila MD [address] [place] [address] Health Maintenance Due Date Last Done Comments Breast Cancer Screening 1966 Hepatitis B Vaccine (1 of 3 - 19+ 3-dose series) 1985 Pneumococcal Vaccine: 50+ Ye ars (3 of 3 - PCV) 05/25/2009 05/25/2008, 05/05/2008, 05/05/2008 Colorectal Cancer Screening: Annual FOBT 2015 Colorectal Cancer Screening: Colonoscopy 2015 Colorectal Cancer Screening: Sigmoidoscopy 2015 Influenza Vaccine (#1) 2025 3, 08/13/2022, 06/29/2021, Additional history exists Pneumococcal Vaccine: Peds ( 0 to 5 Years) and At-Risk Patients (6 to 49 Years) Discontinued 05/25/2008, 05/05/2008, 05/05/2008 Insurance Medicaid [place] [facility] Care Teams Chancery Clerk Relationship Specialty Start Date End Date Aretha Bain NP [address] [facility] [address] [place] [id number] PCP - General Nurse Practitioner 04/12/25
--- OUTSIDE RECORDS SUMMARY | 2025-07-14 14:02 | XMS_ITS | Encounter Summary ---
Author Organization [facility] Address [address] [facility] [address] [place] [address] Phone Care Team Providers Care Broom Handle Dipper Name Role Phone Demond Roger MD Unavailable [phone] FeltmateTianna MD Unavailable [phone] Yasmeen Ward MD Unavailable [email or web address] Meghna Parson MD Primary Care Provi vipin CarltonMacho gary W DO Unavailable Camila Nayak SAS ADMINISTRATOR Unavailable [phone] Pack, Mile SYSTEMS SOFTWARE DESIGNER Unavailable Marian Alicia MD Primary Care Provider [phone] Encounter Details Date Type Department Care Team (Late st Contact Info) Description 10/03/2021 Transcribe Orders Virtual Department [address] [place] [address] Meghna Parson MD [address] [place], [place] [phone] [email or web address] Exposure to COVID-19 virus (Primary Dx) Social [...] be available within 24 to 48 hrs. [facility] Symptomatic? NO [facility] Other 10/04/2021 12:5 8 PM EST 10/04/2021 2:19 PM EST us Meghna Parson MD BODY FLUIDS AND STO OLS ORDERABLES Final Result Performing Organization Address City/State/[facility] Co de Phone Number [address] [address] [facility] [address] [place] [address] documented in this encounter Visit Diagnoses Diagnosis [...] documented as of this encounter Care Teams Broom Handle Dipper Relationship Specialty Start Date End Date Meghna Parson MD [email or web address] PCP - General Internal Medicine 12/31/20 01/04/22 Marian Alicia MD [address] [place] [address], [address] [place] [address] [email or web address] PCP - General Family Medicine 01/05/22 Demond Roger MD [address] [place] [address] [email or web address] Historical LMR Provider 02/24/15 10/21/21 Tianna Coello MD [address] [place] [address] [email or web address] Historical LMR Provider 02/24/15 10/21/21 Yasmeen Ward MD [email or web address] Historical LMR Provider 02/24/1510/21 Macho Vincent DO [address] [place] [address] [email or web address] Primary Oncologist Hematology and Oncology 09/13/21 Camila Nayak FNP [address] [place] [address] [email or web address] Nurse Practitioner Medical Oncology 11/03/21 Mile Reynolds CNP [address] [place] [address] [email or web address] Nurse Practitioner Medical Oncology 11/03/21 documented as of this encounter Additional Source Comments The information contained in this document represents components of the legal health record. It is not the complete legal health record.[facility]
--- OUTSIDE RECORDS SUMMARY | 2025-07-14 14:02 | XMS_ITS | Encounter Summary ---
Author Organization [facility] Address [address] [facility] [address] [place] [address] Phone Care Team Providers Care Heel Seat Sander Name Role Phone Demond Roger MD Unavailable [phone] FeltTianna ng MD Unavailable [phone] Yasmeen Ward MD Unavailable [email or web address] Meghna Parson MD Primary Care Provi vipin Madalyn Rogers MD Primary Care Provide r Meghna Parson MD Primary Care Provi vipin Macho Vincent DO Unavailable [phone] Camila Nayak FINANCIAL COACH Unavailable Mile Reynolds SECURITY OPERATIONS ANALYST Unavailable Marian Alicia MD Primary Care Provider [phone] Encounter Details Date Type Department Care Team (Late st Contact Info) Description 04/24/2018 Transcribe Orders [facility] [address] [place] [address] Meghna Parson MD [address] [place], [place] [phone] [email or web address] Screening for tuberculosis (Primary Dx) Social History [...] * Quantiferon-TB Gold (04/24/2018 4:17 PM EDT) [facility] QuantiFERON-TB Gold Negative Negative [facility] MED/PATH SUPERIOR Comment: (NOTE) No [...] MED/PATH SUPERIOR Mitogen minus Nil >10.00 IU/mL [facility] MED/PATH SUPERIOR HODGE Nil Result 0.01 IU/mL [facility] MED/PATH SUPERIOR HODGE Blood 04/24/2018 4:17 PM EDT 04/24/2018 4:18 PM EDT us Meghna Parson MD LAB BLOOD ORDERABLE S Final Result [facility] MED/PATH SUPERIOR [address] [place] [address] documented in this encounter Visit Diagnoses Diagnosis [...] documented as of this encounter Care Teams Heel Seat Sander Relationship Specialty Start Date End Date Meghna Parson MD [email or web address] PCP - General Internal Medicine 08/19/17 11/29/19 Madalyn Rogers MD [address] [place] [address] PCP - General 11/30/19 12/30/20 Meghna Parson MD [email or web address] PCP - General Internal Medicine 12/31/20 01/04/22 Marian Alicia MD [address] [place] [address] 7 [place] [address] [email or web address] PCP - General Family Medicine 01/05/22 Demond Roger MD [address] [place] [address] [email or web address] Historical LMR Provider 02/24/15 10/21/21 Tianna Coello MD [address] [place] [address] [email or web address] Historical LMR Provider 02/24/15 10/21/21 Yasmeen Ward MD [email or web address] Historical LMR Provider 02/24/1510/21 Macho Vincent DO [address] [place] [address] [email or web address] Primary Oncologist Hematology and Oncology 09/13/21 Camila Nayak FNP [address] [place] [address] [email or web address] Nurse Practitioner Medical Oncology 11/03/21 Miel Reynolds CNP [address] [place] [address] [email or web address] Nurse Practitioner Medical Oncology 11/03/21 documented as of this encounter Additional Source Comments The information contained in this document represents components of the legal health record. It is not the complete legal health record.[facility]
--- OUTSIDE RECORDS SUMMARY | 2025-07-14 14:02 | XMS_ITS | Encounter Summary ---
Author Organization [facility] Address [address] [facility] [address] [place] [address] Phone Care Team Providers Care Hse Manager Name Role Phone Demond Roger MD Unavailable [phone] FeltmateTianna MD Unavailable [phone] Yasmeen Ward MD Unavailable [email or web address] Madalyn Rogers MD Primary Care Provide r Meghna Parson MD Primary Care Provi vipin CarltonMacho gary W DO Unavailable [phone] Camila Nayak CARPENTERS HELPER Unavailable [employer] PIPE COVERER Unavailable Marian Alicia MD Primary Care Provider [phone] Encounter Details Date Type Department Care Team (Late st Contact Info) Description 07/14/2020 Ancillary Orders Virtual Department 30 [place] [address] Meghna Parson MD [address] [place], [place] [id number] [email or web address] Breast screening Social History Tobacco Use Types [...] and compared with multiple prior studies, most mocbsekh94/25/2019, with utilization of computer-aided detection. The breasts [...] documented as of this encounter Care Teams Hse Manager Relationship Specialty Start Date End Date Madalyn Rogers MD [address] [place] [address] PCP - General 11/30/19 12/30/20 Meghna Parson MD [address] [place] [address] [email or web address] PCP - General Internal Medicine 12/31/20 01/04/22 Marian Alicia MD [address] [place] [address], [facility] 7 [place] [address] [email or web address] PCP - General Family Medicine 01/05/22 Demond Roger MD [address] [place] [address] [email or web address] Historical LMR Provider 02/24/15 10/21/21 Tianna Coello MD [address] [place] [address] [email or web address] Historical LMR Provider 02/24/15 10/21/21 Yasmeen Ward MD [email or web address] Historical LMR Provider 02/24/1510/21 Macho Vincent DO [address] [place] [address] [email or web address] Primary Oncologist Hematology and Oncology 09/13/21 Camila Nayak FNP [address] [place] [address] [email or web address] Nurse Practitioner Medical Oncology 11/03/21 Mile Reynolds CNP [address] [place] [address] [email or web address] Nurse Practitioner Medical Oncology 11/03/21 documented as of this encounter Additional Source Comments The information contained in this document represents components of the legal health record. It is not the complete legal health record.[facility]
--- OUTSIDE RECORDS SUMMARY | 2025-07-14 14:02 | XMS_ITS | Encounter Summary ---
Author Organization [facility] Address [address] [facility] [address] [place] [address] Phone Care Team Providers Care Art History Instructor Name Role Phone Dell Chiang MD Primary Care Provider [phone] Demond Roger MD Unavailable [phone] FeltTianna ng MD Unavailable [phone] Yasmeen Ward MD Unavailable [email or web address] Meghna Parson MD Primary Care Provi vipin Madalyn Rogers MD Primary Care Provide r Meghna Parson MD Primary Care Provi vipin Mahco Vincent W DO Unavailable Camila Nayak DITCH DIGGER Unavailable [phone] Mile Reynolds HOOK AND EYE MACHINE OPERATOR Unavailable Marian Alicia MD Primary Care Provider [phone] Encounter Details Date Type Department Care Team (Late st Contact Info) Description 08/04/2017 Ancillary Orders [address] [address] Meghna Parson MD [address] [place] [address] [email or web address] Social History Tobacco Use Types Packs/Day Years [...] documented as of this encounter Care Teams Art History Instructor Relationship Specialty Start Date End Date Dell Chiang MD [address] [facility] [address] [place] [address] PCP - General 02/18/15 08/18/17 Meghna Parson MD [email or web address] PCP - General Internal Medicine 08/19/17 11/29/19 Madalyn Rogers MD [address] [place] [address] PCP - General 11/30/19 12/30/20 Meghna Parson MD [email or web address] PCP - General Internal Medicine 12/31/20 01/04/22 Marian Alicia MD [address] [place] [address], [address] [place] [address] [email or web address] [email or web address] PCP - General Family Medicine 01/05/22 Demond Roger MD [address] [place] [address] [email or web address] Historical LMR Provider 02/24/15 10/21/21 Tianna Coello MD [address] [place] [address] [email or web address] Historical LMR Provider 02/24/15 10/21/21 Yasmeen Ward MD [email or web address] Historical LMR Provider 02/24/1510/21 Macho Vincent DO [address] [place] [address] [email or web address] Primary Oncologist Hematology and Oncology 09/13/21 Camila Nayak FNP [address] [place] [address] [email or web address] Nurse Practitioner Medical Oncology 11/03/21 Mile Reynolds CNP [address] [place] [address] [email or web address] Nurse Practitioner Medical Oncology 11/03/21 documented as of this encounter Additional Source Comments The information contained in this document represents components of the legal health record. It is not the complete legal health record.[facility]
--- OUTSIDE RECORDS SUMMARY | 2025-07-14 14:02 | XMS_ITS | Encounter Summary ---
Author Organization [facility] Address [address] [facility] [address] [place] [address] Phone Care Team Providers Care Executive Sales Manager Name Role Phone Demond Roegr MD Unavailable [phone] FeltmateTianna MD Unavailable [phone] Yasmeen Ward MD Unavailable [email or web address] Meghna Parson MD Primary Care Provi vipin CarltonMacho gary W DO Unavailable Camila Nayak PRODUCT MARKETING CONSULTANT Unavailable [phone] [address], Mile ASSEMBLY OPERATOR Unavailable Marian Alicia MD Primary Care Provider [phone] Encounter Details Date Type Department Care Team (Late st Contact Info) Description 08/25/2021 Procedure Pass [facility] [address] [place], [place] [phone] Social History Tobacco Use Types Packs/Day Years [...] as of this encounter Care Teams Executive Sales Manager Relationship Specialty Start Date End Date Meghna Parson MD [email or web address] PCP - General Internal Medicine 12/31/20 01/04/22 Marian Alicia MD [address] [place] [address] [email or web address] PCP - General Family Medicine 01/05/22 Demond Roger MD [address] [place] [address] [email or web address] Historical LMR Provider 02/24/15 10/21/21 Tianna Coello MD [address] [place] [address] [email or web address] Historical LMR Provider 02/24/15 10/21/21 Yasmeen Ward MD [email or web address] Historical LMR Provider 02/24/1510/21 Macho Vincent DO [address] [place] [address] [email or web address] Primary Oncologist Hematology and Oncology 09/13/21 Camila Nayak FNP [address] [place] [address] [email or web address] Nurse Practitioner Medical Oncology 11/03/21 Mile Reynolds CNP [address] [place] [address] [email or web address] Nurse Practitioner Medical Oncology 11/03/21 documented as of this encounter Additional Source Comments The information contained in this document represents components of the legal health record. It is not the complete legal health record.[facility]
--- OUTSIDE RECORDS SUMMARY | 2025-07-14 14:02 | XMS_ITS | Encounter Summary ---
Author Organization [facility] Address 399 [facility] [address] [place] [address] Phone Care Team Providers Care Mental Measurements Teacher Name Role Phone Demond Roger MD Unavailable [phone] FeltTianna ng MD Unavailable [phone] Yasmeen Ward MD Unavailable [email or web address] Meghna Parson MD Primary Care Provi vipin Madalyn Rogers MD Primary Care Provide r Meghna Parson MD Primary Care Provi vipin Macho Vincent DO Unavailable Camila Nayak CRM ARCHITECT Unavailable [phone] HOMICIDE INVESTIGATOR Unavailable Marian Alicia MD Primary Care Provider [phone] Encounter Details Date Type Department Care Team (Late st Contact Info) Description 03/05/2018 Ancillary Orders Virtual Department [address] [place] [address] London Obregon MD [address] [facility] [address] [place] [address] [email or web address] Dyspnea, unspecified type; Hypoxemia; Cough; Wheeze; [...] documented as of this encounter Care Teams Mental Measurements Teacher Relationship Specialty Start Date End Date Meghna Parson MD [email or web address] PCP - General Internal Medicine 08/19/17 11/29/19 Madalyn Rogers MD [address] [place] [address] PCP - General 11/30/19 12/30/20 Meghna Parson MD [email or web address] PCP - General Internal Medicine 12/31/20 01/04/22 Marian Alicia MD [address] [place] [address], [facility] 7 [place] [address] [email or web address] PCP - General Family Medicine 01/05/22 Demond Roger MD [address] [place] [address] [email or web address] Historical LMR Provider 02/24/15 10/21/21 Tianna Coello MD [address] [place] [address] [email or web address] Historical LMR Provider 02/24/15 10/21/21 Yasmeen Ward MD [email or web address] Historical LMR Provider 02/24/1510/21 Mcaho Vincent DO [address] [place] [address] [email or web address] Primary Oncologist Hematology and Oncology 09/13/21 Camila Nayak FNP [address] [place] [address] [email or web address] Nurse Practitioner Medical Oncology 11/03/21 Mile Reynolds CNP [address] [place] [address] [email or web address] Nurse Practitioner Medical Oncology 11/03/21 documented as of this encounter Additional Source Comments The information contained in this document represents components of the legal health record. It is not the complete legal health record.[facility]
--- OUTSIDE RECORDS SUMMARY | 2025-07-14 14:02 | XMS_ITS | Encounter Summary ---
Author Organization [facility] Address [email or web address] [facility] [address] [place] [address] Phone Care Team Providers Care Coroner Technician Name Role Phone Demond Roger MD Unavailable [phone] FeltmateTianna MD Unavailable [phone] Yamseen Ward MD Unavailable [email or web address] Madalyn Rogers MD Primary Care Provide r Meghna Parson MD Primary Care Provi vipin Macho Vincent W DO Unavailable Camila Nayak WAREHOUSE SELECTOR Unavailable [phone] CALL CENTER RECEPTIONIST Unavailable Marian Alicia MD Primary Care Provider [phone] Encounter Details Date Type Department Care Team (Late st Contact Info) Description 07/14/2020 Procedure Pass [facility], [address] [id number] Social History Tobacco Use Types Packs/Day Years [...] documented as of this encounter Care Teams Coroner Technician Relationship Specialty Start Date End Date Madalyn Rogers MD [address] [place] [address] PCP - General 11/30/19 12/30/20 Meghna Parson MD [address] [place] [address] [email or web address] PCP - General Internal Medicine 12/31/20 01/04/22 Marian Alicia MD [address] [place] [address], [facility] 7 [place] [address] [email or web address] PCP - General Family Medicine 01/05/22 Demond Roger MD [address] [place] [address] [email or web address] Historical LMR Provider 02/24/15 10/21/21 Tianna Coello MD [address] [place] [address] [email or web address] Historical LMR Provider 02/24/15 10/21/21 Yasmeen Ward MD [email or web address] Historical LMR Provider 02/24/1510/21 Macho Vincent DO [address] [place] [address] [email or web address] Primary Oncologist Hematology and Oncology 09/13/21 Camila Nayak FNP [address] [place] [address] [email or web address] Nurse Practitioner Medical Oncology 11/03/21 Mile Reynolds CNP [address] [place] [address] [email or web address] Nurse Practitioner Medical Oncology 11/03/21 documented as of this encounter Additional Source Comments The information contained in this document represents components of the legal health record. It is not the complete legal health record.[facility]
--- OUTSIDE RECORDS SUMMARY | 2025-07-14 14:02 | XMS_ITS | Encounter Summary ---
Author Organization [facility] Address 399 [facility] [address] [place] [address] Phone Care Team Providers Care Parking Patroller Name Role Phone Dell Chiang MD Primary Care Provider [phone] Demond Roger MD Unavailable [phone] FeltTianna ng MD Unavailable [phone] Yasmeen Ward MD Unavailable [email or web address] Meghna Parson MD Primary Care Provi vipin Madalyn Rogers MD Primary Care Provide r Meghna Parson MD Primary Care Provi vipin Macho Vincent W DO Unavailable Camila Nayak BUSINESS OPERATIONS CONSULTANT Unavailable Mile Reynolds VULCAN CREWMEMBER Unavailable Marian Alicia MD Primary Care Provider [phone] Encounter Details Date Type Department Care Team (Late st Contact Info) Description 08/03/2017 Ancillary Orders [facility], X-Ray - [address] [address] Meghna Parson MD 6 [place] [address] Breast screening Social History Tobacco Use Types [...] There are scattered fibroglandular densities. POS - [id number] Narrative 09/06/2017 8:52 AM EST Standard digital [...] and compared with multiple prior studies, most gtfvmnox36/24/2016, with utilization of computer-aided detection. The breasts are composed of scattered fibroglandular densities. Thestromal markings are essentially unchanged in overall appearance anddistribution. No dominant spiculated mass, suspicious clusteredmicrocalcifications, or focal zone of pathologic skin thickening orretraction are noted to have arisen in the interim. IMPRESSION: No mammographic evidence of malignancy. BI-RADS CATEGORY: 1 - Negative. DENSITY: There are scattered fibroglandular densities. POS - [id number] Meghna Parson MD IMG MG EXAMS Fin [...] documented as of this encounter Care Teams Parking Patroller Relationship Specialty Start Date End Date Dell Chiang MD [address] [facility] [address] [place] [address] PCP - General 02/18/15 08/18/17 Meghna Parson MD [email or web address] PCP - General Internal Medicine 08/19/17 11/29/19 Madalyn Rogers MD [address] [place] [address] PCP - General 11/30/19 12/30/20 Meghna Parson MD [email or web address] PCP - General Internal Medicine 12/31/20 01/04/22 Marian Alicia MD [address] [place] [address] 7 [place] [address] [email or web address] PCP - General Family Medicine 01/05/22 Demond Roger MD [address] [place] [address] [email or web address] Historical LMR Provider 02/24/15 10/21/21 Tianna Coello MD [address] [place] [address] [email or web address] Historical LMR Provider 02/24/15 10/21/21 Yasmeen Ward MD [email or web address] Historical LMR Provider 02/24/1510/21 Macho Vincent DO [address] [place] [address] [email or web address] Primary Oncologist Hematology and Oncology 09/13/21 Camila Nayak FNP [address] [place] [address] [email or web address] Nurse Practitioner Medical Oncology 11/03/21 Mile Reynolds CNP [address] [place] [address] [email or web address] Nurse Practitioner Medical Oncology 11/03/21 documented as of this encounter Additional Source Comments The information contained in this document represents components of the legal health record. It is not the complete legal health record.[facility]
--- OUTSIDE RECORDS SUMMARY | 2025-07-14 14:02 | XMS_ITS | Encounter Summary ---
Author Organization [facility] Address [address] [address] Phone Care Team Providers Care Workforce Manager Name Role Phone Demond Roger MD Unavailable [phone] FeltTianna ng MD Unavailable [phone] Yasmeen Ward MD Unavailable [email or web address] Meghna Parson MD Primary Care Provi vipin Macho Vincent W DO Unavailable [phone] Camila Nayak WEIGHER ALLOY Unavailable [phone] HYDRATION PLANT OPERATOR Unavailable Marian Alicia MD Primary Care Provider [phone] Reason for Referral * Consultation (Elective) - Closed Specialty Diagnoses / Procedures Referred By Thompson t Referred To Contact Pulmonary Disease Meghna Parson MD Phone: tel: [email or web address] [address] [address] Phone: tel: Referral ID Status Reason Start Date Expiration Date Visits Re quested Visits Authorized [id number] Closed 08/25/2021 08/25/2022 1 1 Encounter Details Date Type Department Care Team (Late st Contact Info) Description 08/25/2021 Transcribe Orders [facility] Pulmonary, Allergy and Critical Care Medicine [address] [place] [address] [place] [address] Meghna Parson MD [address] [place] [address] [email or web address] Social History Tobacco Use Types Packs/Day Years [...] Associated Diagnoses Order Schedule Ambulatory referral to [facility] Pulmonology Outpatient Referral Routine Ordered: 08/25/2021 documented [...] documented as of this encounter Care Teams Workforce Manager Relationship Specialty Start Date End Date Meghna Parson MD [email or web address] PCP - General Internal Medicine 12/31/20 01/04/22 Marian Alicia MD [address] [place] [address], [address] [place] [address] [email or web address] PCP - General Family Medicine 01/05/22 Demond Roger MD [address] [place] [address] [email or web address] Historical LMR Provider 02/24/15 10/21/21 Tianna Coello MD [address] [place] [address] [email or web address] Historical LMR Provider 02/24/15 10/21/21 Yasmeen Ward MD [email or web address] Historical LMR Provider 02/24/1510/21 Macho Vincent DO [address] [place] [address] [email or web address] Primary Oncologist Hematology and Oncology 09/13/21 Camila Nayak FNP [address] [place] [address] [email or web address] Nurse Practitioner Medical Oncology 11/03/21 Mile Reynolds CNP [address] [place] [address] [email or web address] Nurse Practitioner Medical Oncology 11/03/21 documented as of this encounter Additional Source Comments The information contained in this document represents components of the legal health record. It is not the complete legal health record.[facility]
--- OUTSIDE RECORDS SUMMARY | 2025-07-14 14:03 | XMS_ITS | Encounter Summary ---
Author Organization [facility], Address [address] [place] [address] Phone Care Team Providers Care Longshore Equipment Operator Name Role Phone Aretha Bain MERCHANDISE CARRIER Primary Care Provider [phone] Encounter Details Date Type Department Care Team (Late st Contact Info) Description 08/12/2023 Documentation Only [facility] [address] [place] [phone] Marian Alicia MD [address] [place] [address] 7 [place] [address] Social History Tobacco Use Types Packs/Day Years [...] Visit [facility], [address] [place] [phone] Jamison Avila MD [address] [facility] [place] [phone] documented as of this encounter Visit Diagnoses Not on filedocumented in this encounter Care Teams Longshore Equipment Operator Relationship Specialty Start Date End Date Aretha Bain NP [address] [facility] 1 [place] [address] PCP - General Nurse Practitioner 04/12/25 documented as of this encounter
--- OUTSIDE RECORDS SUMMARY | 2025-07-14 14:03 | XMS_ITS | Encounter Summary ---
Author Organization [facility] Address [address] [place] [address] Phone Care Team Providers Care Hub Borer Name Role Phone Macho Vincent DO Unavailable Camila Nayak PARQUETRY FLOOR LAYER Unavailable [phone] PackTristanen WINDOW CUTTER Unavailable Marian Alicia MD Primary Care Provider [phone] Encounter Details Date Type Department Care Team (Late st Contact Info) Description 08/13/2022 Procedure Pass [address] [address] Social History Tobacco Use Types Packs/Day Years [...] high school, GED, job training, learning the Finnish language, technical skills, or developing parenting skills)? [...] documented as of this encounter Care Teams Hub Borer Relationship Specialty Start Date End Date Marian Alicia MD [address] [place] [address], [address] [place], [place] [phone] [email or web address] PCP - General Family Medicine 01/05/22 Macho Vincent DO [address] [place] [address] [email or web address] Primary Oncologist Hematology and Oncology 09/13/21 Camila Nayak FNP [address] [place] [address] [email or web address] Nurse Practitioner Medical Oncology 11/03/21 Mile Reynolds CNP [address] [place] [address] [email or web address] Nurse Practitioner Medical Oncology 11/03/21 documented as of this encounter Additional Source Comments The information contained in this document represents components of the legal health record. It is not the complete legal health record.[facility]
--- OUTSIDE RECORDS SUMMARY | 2025-07-14 14:03 | XMS_ITS | Encounter Summary ---
Author Organization [facility], Address [address] [place] [address] Phone Care Team Providers Care Oil Distributor Name Role Phone Aretha Bain GARMENT WORKER Primary Care Provider [phone] Encounter Details Date Type Department Care Team (Late st Contact Info) Description 08/12/2023 Documentation Only [facility] [address] [place] [phone] Marian Alicia MD [address] [place] [address] 7 [place] [address] Social History Tobacco Use Types Packs/Day Years [...] Visit [facility], [address] [place] [phone] Jamison Avila MD [address] [place] [phone] documented as of this encounter Visit Diagnoses Not on filedocumented in this encounter Care Teams Oil Distributor Relationship Specialty Start Date End Date Aretha Bain NP [address] [facility] 1 [place] [address] PCP - General Nurse Practitioner 04/12/25 documented as of this encounter
--- OUTSIDE RECORDS SUMMARY | 2025-07-14 14:03 | XMS_ITS | Encounter Summary ---
Author Organization [facility] Address 399 [facility] [address] [place] [address] Phone Care Team Providers Care Keyboard Teacher Name Role Phone Demond Roger MD Unavailable [phone] FeltmateTianna MD Unavailable [phone] Yasmeen Ward MD Unavailable [email or web address] Meghna Parson MD Primary Care Provi vipin CarltonMacho gary W DO Unavailable Camila Nayak TELECOM SALES CONSULTANT Unavailable Pack, Mile TILE CONDUIT LAYER Unavailable Marian Alicia MD Primary Care Provider [phone] Encounter Details Date Type Department Care Team (Late st Contact Info) Description 06/13/2021 Transcribe Orders Virtual Department 30 [place] [address] Meghna Parson MD [address] [place], [place] [phone] [email or web address] Post-void dribbling (Primary Dx) Social History Tobacco [...] 2:37 PM EDT Normal bladder ultrasound POS [id number] Narrative 06/27/2021 2:37 PM EDT No comparison [...] (11% residual) IMPRESSION: Normal bladder ultrasound POS [id number] Meghna Parson MD IMG US RENAL Fin [...] documented as of this encounter Care Teams Keyboard Teacher Relationship Specialty Start Date End Date Meghna Parson MD [email or web address] PCP - General Internal Medicine 12/31/20 01/04/22 Marian Alicia MD [address] [place] [address], [address] [place] [address] [email or web address] PCP - General Family Medicine 01/05/22 Demond Roger MD [address] [place] [address] [email or web address] Historical LMR Provider 02/24/15 10/21/21 Tianna Coello MD [address] [place] [address] [email or web address] Historical LMR Provider 02/24/15 10/21/21 Yasmeen Ward MD [email or web address] Historical LMR Provider 02/24/1510/21 Macho Vincent DO [address] [place] [address] [email or web address] Primary Oncologist Hematology and Oncology 09/13/21 Camila Nayak FNP [address] [place] [address] [email or web address] Nurse Practitioner Medical Oncology 11/03/21 Mile Reynolds CNP [address] [place] [address] Nurse Practitioner Medical Oncology 11/03/21 documented as of this encounter Additional Source Comments The information contained in this document represents components of the legal health record. It is not the complete legal health record.[facility]
--- OUTSIDE RECORDS SUMMARY | 2025-07-14 14:03 | XMS_ITS | Encounter Summary ---
Author Organization [facility] Address [address] [facility] [address] [place] [address] Phone Care Team Providers Care Customs Compliance Specialist Name Role Phone Demond Roger MD Unavailable [phone] FeltTianna ng MD Unavailable [phone] Yasmeen Ward MD Unavailable [email or web address] Meghna Parson MD Primary Care Provi vipin Madalyn Rogers MD Primary Care Provide r Meghna Parson MD Primary Care Provi vipin Macho Vincent DO Unavailable [phone] Camila Nayak GRATING MACHINE OPERATOR Unavailable [phone] Reynolds SPINE NURSE Unavailable Marian Alicia MD Primary Care Provider [phone] Encounter Details Date Type Department Care Team (Late st Contact Info) Description 02/13/2018 Transcribe Orders [facility] Laboratory [address] [place] [address] Meghna Parson MD [address] [place], [place] [id number] [email or web address] Fatigue, unspecified type (Primary Dx) Social History [...] VITAMIN B12 410 232 - 1,245 pg/mL [facility] Comment:The reference range had been changed on January 24, 2018 from 243 - 894pg/mL to 232 - 1245 pg/mL. Blood 02/13/2018 10:0 8 AM EDT 02/13/2018 10:14 AM EDT us Meghna Parson MD LAB BLOOD ORDERABLE S Final Result [address] [address] * Iron and iron binding capacity (02/13/2018 10:08 AM EDT) IRON 70 30 - 160 ug/dL [facility] IRON BINDING CAPACITY 229 228 - 428 ug/dL [facility] TRANSFERRIN SATURAT. 31 15 - 50 % [facility] Blood 02/13/2018 10:0 8 AM EDT 02/13/2018 10:14 AM EDT us Megnha Parson MD LAB BLOOD ORDERABLE S Final Result Performing Organization Address City/[facility]/ZIP Co de Phone Number [address] [address] * (ABNORMAL) Ferritin (02/13/2018 10:08 AM EDT) FERRITIN 154(H) 13 - 150 ug/L [facility] Blood 02/13/2018 10:0 8 AM EDT 02/13/2018 10:14 AM EDT Meghna Parson MD LAB BLOOD ORDERABLE S Final Result Performing Organization Address City/[facility]/ZIP Co de Phone Number [address] [address] * CPK (creatine kinase) (02/13/2018 10:08 AM EDT) CREATINE KINASE 173 21 - 215 U/L [facility] Blood 02/13/2018 10:0 8 AM EDT 02/13/2018 10:14 AM EDT Meghna Parson MD LAB BLOOD ORDERABLE S Final Result Performing Organization Address [facility] Co de Phone Number [address] [address] * TSH with reflex (02/13/2018 10:08 AM EDT) TSH 1.69 0.27 - 4.20 uIU/mL [facility] Blood 02/13/2018 10:0 8 AM EDT 02/13/2018 10:14 AM EDT Meghna Parson MD LAB BLOOD ORDERABLE S Final Result Performing Organization Address City/[facility] Co de Phone Number [address] [address] * CBC and differential (02/13/2018 10:08 AM EDT) WBC 7.06 3.40 - 11.20 K/uL [facility] RBC 4.79 3.80 - 4.80 M/uL [facility] HGB 14.2 12.0 - 15.0 g/dL [facility] HCT 43.5 36.0 - 46.0 % [facility] PLT 262 130 - 400 K/uL [facility] MCV 90.8 79.0 - 98.0 fL [facility] MCH 29.6 27.0 - 34.8 pg [facility] MCHC 32.6 31.5 - 36.0 g/dL [facility] RDW 12.8 10.8 - 14.6 % [facility] MPV 9.8 9.4 - 12.4 fl [facility] NRBC 0.00 /100 WBCs [facility] ABSOLUTE NRBC 0.00 K/uL [facility] DIFF METHOD Auto [facility] NEUTS 55.8 45.30 - 77.70 % [facility] LYMPHS 32.7 12.30 - 39.70 % [facility] MONOS 8.4 4.10 - 12.80 % [facility] EOS 2.1 0 - 7.2 % [facility] BASOS 0.4 0 - 2.80 % [facility] Granulocytes, immature (%) 0.6 0.0 - 0.9 % [facility] ABSOLUTE NEUTS 3.94 1.40 - 7.70 K/uL [facility] ABSOLUTE LYMPHS 2.31 0.60 - 3.20 K/uL [facility] ABSOLUTE MONOS 0.59 0.11 - 0.59 K/uL [facility] ABSOLUTE EOS 0.15 0.01 - 0.50 K/uL [facility] ABSOLUTE BASOS 0.03 0.00 - 0.08 K/uL [facility] Granulocytes, immature 0.04 0.00 - 0.05 K/uL [facility] Blood 02/13/2018 10:0 8 AM EDT 02/13/2018 10:14 AM EDT us Meghna Parson MD LAB BLOOD ORDERABLE S Final Result [facility] [address] [place] [address] * (ABNORMAL) Comprehensive metabolic panel (02/13/2018 10:08 AM EDT) Pathologist [facility] SODIUM 146 133 - 146 mmol/L [facility] POTASSIUM 4.2 3.3 - 5.1 mmol/L [facility] CHLORIDE 106 96 - 108 mmol/L [facility] CO2 27 21 - 35 mmol/L [facility] BUN 17 6 - 19 mg/dL [facility] CREATININE 1.00 0.5 - 1.5 mg/dL [facility] GLUCOSE 69(L) 70 - 99 mg/dL [facility] ALBUMIN 3.9 3.9 - 4.8 g/dL [facility] TOTAL PROTEIN 6.4(L) 6.5 - 8.0 g/dL [facility] CALCIUM 9.3 8.4 - 10.3 mg/dL [facility] ALKALINE PHOSPHATASE 77 39 - 117 U/L [facility] TOTAL BILIRUBIN 0.3 0.0 - 1.2 mg/dL [facility] AST 21 0 - 37 U/L [facility] ALT 13 0 - 40 U/L [facility] GLOBULIN 2.5 1 - 4.8 g/dL [facility] EGFR 65 >59 mL/min/1.7 3m2 [facility] Comment:If patient is black, multiply result by 1.159. The eGFR calculation has changed from the MDRD equation to the CKD-EPI equation as of December 17, 2017. ANION GAP 17 10 - 20 mmol/L [facility] Blood 02/13/2018 10:0 8 AM EDT 02/13/2018 10:14 AM EDT us Meghna Parson MD LAB BLOOD ORDERABLE S Final Result [address] [address] documented in this encounter Visit Diagnoses Diagnosis Fatigue, unspecified type- Primary documented in this encounter Additional Health Concerns Infection Onset Date Last Indicated Resolved Time CoV-Exposed Comment:Recent close contact documented in the COVID-19 PCR/PRO order 09/25/2021 10/03/2021 10/10/2021 1:[address] CoV-Presumed 10/09/2022 10/09/2022 10/30/2022 1:21 AM EST CoV-Risk 03/01/2023 03/01/2023 03/12/2023 1:22 AM EDT documented as of this encounter Care Teams Customs Compliance Specialist Relationship Specialty Start Date End Date Meghna Parson MD [email or web address] PCP - General Internal Medicine 08/19/17 11/29/19 Madalyn Rogers MD [address] [place] [address] PCP - General 11/30/19 12/30/20 Meghna Parson MD [email or web address] PCP - General Internal Medicine 12/31/20 01/04/22 Marian Alicia MD [address] [place] [address] [email or web address] PCP - General Family Medicine 01/05/22 Demond Roger MD [address] [place] [address] [email or web address] Historical LMR Provider 02/24/15 10/21/21 Tianna Coello MD [address] [place] [address] [email or web address] Historical LMR Provider 02/24/15 10/21/21 Yasmeen Ward MD [email or web address] Historical LMR Provider 02/24/1510/21 Macho Vincent DO [address] [place] [address] [email or web address] Primary Oncologist Hematology and Oncology 09/13/21 Camila Nayak FNP [address] [place] [address] [email or web address] Nurse Practitioner Medical Oncology 11/03/21 Mile Reynolds CNP [address] [place] [address] [email or web address] Nurse Practitioner Medical Oncology 11/03/21 documented as of this encounter Additional Source Comments The information contained in this document represents components of the legal health record. It is not the complete legal health record.[facility]
--- OUTSIDE RECORDS SUMMARY | 2025-07-14 14:03 | XMS_ITS | Encounter Summary ---
Author Organization [facility] Address [address] [facility] [address] [place] [address] Phone Care Team Providers Care Broadcast Operations Director Name Role Phone Demond Roger MD Unavailable [phone] FeltTianna ng MD Unavailable [phone] Yasmeen Ward MD Unavailable [email or web address] Meghna Parson MD Primary Care Provi vipin Madalyn Rogers MD Primary Care Provide r Meghna Parson MD Primary Care Provi vipin Macho Vincent DO Unavailable [phone] Camila Nayak SENIOR SOFTWARE MANAGER Unavailable Mile Reynolds HOSIERY MENDER Unavailable Marian Alicia MD Primary Care Provider [phone] Encounter Details Date Type Department Care Team (Late st Contact Info) Description 09/18/2019 Ancillary Orders [facility], X-Ray - [address] [address] Georgie Olsen MD [address] [place] [phone] [email or web address] Pneumonia due to infectious [...] documented as of this encounter Care Teams Broadcast Operations Director Relationship Specialty Start Date End Date Meghna Parson MD [email or web address] PCP - General Internal Medicine 08/19/17 11/29/19 Madalyn Rogers MD [address] [place] [address] PCP - General 11/30/19 12/30/20 Meghna Parson MD [email or web address] PCP - General Internal Medicine 12/31/20 01/04/22 Marian Alicia MD [address] [place] [address] 7 [place] [address] [email or web address] PCP - General Family Medicine 01/05/22 Demond Roger MD [address] [place] [address] [email or web address] Historical LMR Provider 02/24/15 10/21/21 Tianna Coello MD [address] [place] [address] [email or web address] Historical LMR Provider 02/24/15 10/21/21 Yasmeen Ward MD [email or web address] Historical LMR Provider 02/24/1510/21 Macho Vincent DO [address] [place] [address] [email or web address] Primary Oncologist Hematology and Oncology 09/13/21 Camila Nayak FNP [address] [place] [address] [email or web address] Nurse Practitioner Medical Oncology 11/03/21 Mile Reynolds CNP [address] [place] [address] [email or web address] Nurse Practitioner Medical Oncology 11/03/21 documented as of this encounter Additional Source Comments The information contained in this document represents components of the legal health record. It is not the complete legal health record.[facility]
--- OUTSIDE RECORDS SUMMARY | 2025-07-14 14:03 | XMS_ITS | Encounter Summary ---
Author Organization [facility] Address [address] [facility] [address] [place] [address] Phone Care Team Providers Care Power Saw Mechanic Name Role Phone Demond Roger MD Unavailable [phone] FeltTianna ng MD Unavailable [phone] Yasmeen Ward MD Unavailable [email or web address] Meghna Parson MD Primary Care Provi vipin Madalyn Rogers MD Primary Care Provide r Meghna Parson MD Primary Care Provi vipin Macho Vincent DO Unavailable [phone] Camila Nayak QUALITY CONTROL ASSESSOR Unavailable Mile Reynolds THERAPIST Unavailable Marian Alicia MD Primary Care Provider [phone] Encounter Details Date Type Department Care Team (Late st Contact Info) Description 08/31/2019 Ancillary Orders Virtual Department 30 [place] [address] Meghna Parson MD [address] [place], [place] [phone] [email or web address] Breast screening Social History Tobacco Use [...] documented as of this encounter Care Teams Power Saw Mechanic Relationship Specialty Start Date End Date Meghna Parson MD [email or web address] PCP - General Internal Medicine 08/19/17 11/29/19 Madalyn Rogers MD [address] [place] [address] PCP - General 11/30/19 12/30/20 Meghna Parson MD [email or web address] PCP - General Internal Medicine 12/31/20 01/04/22 Marian Alicia MD [address] [place] [address] 7 [place] [address] [email or web address] PCP - General Family Medicine 01/05/22 Demond Roger MD [address] [place] [address] [email or web address] Historical LMR Provider 02/24/15 10/21/21 Tianna Coello MD [address] [place] [address] [email or web address] Historical LMR Provider 02/24/15 10/21/21 Yasmeen Ward MD [email or web address] Historical LMR Provider 02/24/1510/21 Macho Vincent DO [address] [place] [address] [email or web address] Primary Oncologist Hematology and Oncology 09/13/21 Camila Nayak FNP [address] [place] [address] [email or web address] Nurse Practitioner Medical Oncology 11/03/21 Mile Reynolds CNP [address] [place] [address] [email or web address] Nurse Practitioner Medical Oncology 11/03/21 documented as of this encounter Additional Source Comments The information contained in this document represents components of the legal health record. It is not the complete legal health record.[facility]
--- OUTSIDE RECORDS SUMMARY | 2025-07-14 14:03 | XMS_ITS | Encounter Summary ---
Author Organization [facility] Address [address] [facility] [address] [place] [address] Phone Care Team Providers Care Filling Station Equipment Mechanic Name Role Phone Demond Roger MD Unavailable [phone] FeltTianna ng MD Unavailable [phone] Yasmeen Ward MD Unavailable [email or web address] Meghna Parson MD Primary Care Provi vipin Madalyn Rogers MD Primary Care Provide r Meghna Parson MD Primary Care Provi vipin Macho Vincent DO Unavailable Camila Nayak STYLIST ASSISTANT Unavailable Mile Reynolds PREFITTER DOORS Unavailable Marian Alicia MD Primary Care Provider [phone] Encounter Details Date Type Department Care Team (Late st Contact Info) Description 11/12/2017 Ancillary Orders Virtual Department 30 [place] [address] Meghna Parson MD [address] [place], [place] [phone] [email or web address] Social History Tobacco Use Types Packs/Day Years [...] documented as of this encounter Care Teams Filling Station Equipment Mechanic Relationship Specialty Start Date End Date Meghna Parson MD [email or web address] PCP - General Internal Medicine 08/19/17 11/29/19 Madalyn Rogers MD [address] [place] [address] PCP - General 11/30/19 12/30/20 Meghna Parson MD [email or web address] PCP - General Internal Medicine 12/31/20 01/04/22 Marian Alicia MD [address] [place] [address], [address] [place] [address] PCP - General Family Medicine 01/05/22 Demond Roger MD [address] [place] [address] [email or web address] Historical LMR Provider 02/24/15 10/21/21 Tianna Coello MD [address] [place] [address] [email or web address] Historical LMR Provider 02/24/15 10/21/21 Yasmeen Ward MD [email or web address] Historical LMR Provider 02/24/1510/21 Macho Vincent DO [address] [place] [address] [email or web address] Primary Oncologist Hematology and Oncology 09/13/21 Camila Nayak FNP [address] [place] [address] [email or web address] Nurse Practitioner Medical Oncology 11/03/21 Mile Reynolds CNP [address] [place] [address] [email or web address] Nurse Practitioner Medical Oncology 11/03/21 documented as of this encounter Additional Source Comments The information contained in this document represents components of the legal health record. It is not the complete legal health record.[facility]
--- OUTSIDE RECORDS SUMMARY | 2025-07-14 14:03 | XMS_ITS | Encounter Summary ---
Author Organization [facility] Address [address] [facility] [address] [place] [address] Phone Care Team Providers Care Marine Scientist Name Role Phone Demond Roger MD Unavailable [phone] FeltTianna ng MD Unavailable [phone] Yasmeen Ward MD Unavailable [email or web address] Meghna Parson MD Primary Care Provi vipin Madalyn Rogers MD Primary Care Provide r Meghna Parson MD Primary Care Provi vipin Macho Vincent DO Unavailable Camila Nayak HAM PUMPER Unavailable Mile Reynolds PARING MACHINE OPERATOR Unavailable Marian Alicia MD Primary Care Provider [phone] Encounter Details Date Type Department Care Team (Latest Contact Info) Description 03/04/2018 Transcribe Orders [facility] Laboratory [address] [place] [address] SabasLondon MD [address] [facility] [address] [place], [place] [id number] [email or web address] Dyspnea, unspecified type (Primary Dx) Social [...] AM EDT) D-DIMER <215 <500 ng/mL [facility] Comment:In patients with low to moderate pre-test probability scores for VTE (PE or DVT), a D-Dimer cut-off less than 500 ng/mL ([facility]) has a negative predictive value (NPV) of 97 to 100%. Blood 03/04/2018 11:3 1 AM EDT 03/04/2018 11:33 AM EDT London Obregon MD LAB BLOOD ORDERABLES Final Resu lt Performing Organization Address City/State/[facility] Co de Phone Number [address] [address] documented in this encounter Visit Diagnoses Diagnosis Dyspnea, unspecified type- Primary documented in this encounter Additional Health Concerns Infection Onset Date Last Indicated Resolved Time CoV-Exposed Comment:Recent close contact documented in the COVID-19 PCR/PRO order 09/25/2021 10/03/2021 10/10/2021 1:[address] CoV-Presumed 10/09/2022 10/09/2022 10/30/2022 1:21 AM EST CoV-Risk 03/01/2023 03/01/2023 03/12/2023 1:22 AM EDT documented as of this encounter Care Teams Marine Scientist Relationship Specialty Start Date End Date Meghna Parson MD [email or web address] PCP - General Internal Medicine 08/19/17 11/29/19 Madalyn Rogers MD [address] [place] [address] PCP - General 11/30/19 12/30/20 Meghna Parson MD [email or web address] PCP - General Internal Medicine 12/31/20 01/04/22 Marian Alicia MD [address] [place] [address] [email or web address] PCP - General Family Medicine 01/05/22 Demond Roger MD [address] [place] [address] [email or web address] Historical LMR Provider 02/24/15 10/21/21 Tianna Coello MD [address] [place] [address] [email or web address] Historical LMR Provider 02/24/15 10/21/21 Yasmeen Ward MD [email or web address] Historical LMR Provider 02/24/1510/21 Macho Vnicent DO [address] [place] [address] [email or web address] Primary Oncologist Hematology and Oncology 09/13/21 Camila Nayak FNP [address] [place] [address] [email or web address] Nurse Practitioner Medical Oncology 11/03/21 Mile Reynolds CNP [address] [place] [address] [email or web address] Nurse Practitioner Medical Oncology 11/03/21 documented as of this encounter Additional Source Comments The information contained in this document represents components of the legal health record. It is not the complete legal health record.[facility]
--- OUTSIDE RECORDS SUMMARY | 2025-07-14 14:03 | XMS_ITS | Encounter Summary ---
Author Organization [facility] Address [address] [facility] [address] [place] [address] Phone Care Team Providers Care Drafter Name Role Phone Demond Roger MD Unavailable [phone] FeltTianna ng MD Unavailable [phone] Yasmeen Ward MD Unavailable [email or web address] Meghna Parson MD Primary Care Provi vipin Madalyn Rogers MD Primary Care Provide r Meghna Parson MD Primary Care Provi vipin Macho Vincent DO Unavailable Camila Nayak TOPSTITCHER ZIGZAG Unavailable [phone] Mile Reynolds BEAN PICKER MACHINE OPERATOR Unavailable Marian Alicia MD Primary Care Provider [phone] Encounter Details Date Type Department Care Team (Late st Contact Info) Description 03/03/2018 Ancillary Orders [facility], X-Ray - [address] [address] SabasLondon MD [address] [facility] [address] [place], [place] [phone] [email or web address] Dyspnea, unspecified type Social History Tobacco Use [...] documented as of this encounter Care Teams Drafter Relationship Specialty Start Date End Date Meghna Parson MD [email or web address] PCP - General Internal Medicine 08/19/17 11/29/19 Madalyn Rogers MD [address] [place] [address] PCP - General 11/30/19 12/30/20 Meghna Parson MD [email or web address] PCP - General Internal Medicine 12/31/20 01/04/22 Marian Alicia MD [address] [place] [address] 7 [place] [address] [email or web address] PCP - General Family Medicine 01/05/22 Demond Roger MD [address] [place] [address] [email or web address] Historical LMR Provider 02/24/15 10/21/21 Tianna Coello MD [address] [place] [address] [email or web address] Historical LMR Provider 02/24/15 10/21/21 Yasmeen Ward MD [email or web address] Historical LMR Provider 02/24/1510/21 Macho Vincent DO [address] [place] [address] [email or web address] Primary Oncologist Hematology and Oncology 09/13/21 Camila Nayak FNP [address] [place] [address] [email or web address] Nurse Practitioner Medical Oncology 11/03/21 Mile Reynolds CNP [address] [place] [address] [email or web address] Nurse Practitioner Medical Oncology 11/03/21 documented as of this encounter Additional Source Comments The information contained in this document represents components of the legal health record. It is not the complete legal health record.[facility]
--- OUTSIDE RECORDS SUMMARY | 2025-07-14 14:03 | XMS_ITS | Encounter Summary ---
Author Organization [facility] Address [address] [facility] [address] [place] [address] Phone Care Team Providers Care Event Marketing Manager Name Role Phone Demond Roger MD Unavailable [phone] FeltTianna ng MD Unavailable [phone] Yasmeen Ward MD Unavailable [email or web address] Meghna Parson MD Primary Care Provi vipin Madalyn Rogers MD Primary Care Provide r Meghna Parson MD Primary Care Provi vipin Macho Vincent DO Unavailable Camila Nayak MARINE ANIMAL TRAINER Unavailable [phone] EXPERIENTIAL THERAPIST Unavailable Marian Alicia MD Primary Care Provider [phone] Encounter Details Date Type Department Care Team (Late st Contact Info) Description 11/12/2019 Ancillary Orders Virtual Department 30 [place] [address] Meghna Parson MD [address] [place], [place] [phone] [email or web address] Multinodular goiter Social History Tobacco Use Types [...] aspiration recommended per ACR TI-RADS. POS - [id number] Narrative 11/30/2019 2:44 PM EST THYROID ULTRASOUND [...] aspiration recommended per ACR TI-RADS. POS - [id number] us Meghna Parson MD IMG US THYROID [...] as of this encounter Care Teams Event Marketing Manager Relationship Specialty Start Date End Date Meghna Parson MD [email or web address] PCP - General Internal Medicine 08/19/17 11/29/19 Madalyn Rogers MD [address] [place] [address] PCP - General 11/30/19 12/30/20 Meghna Parson MD [email or web address] PCP - General Internal Medicine 12/31/20 01/04/22 Marian Alicia MD [address] [place] [address], [address] [place] [address] [email or web address] PCP - General Family Medicine 01/05/22 Demond Roger MD [address] [place] [address] [email or web address] Historical LMR Provider 02/24/15 10/21/21 Tianna Coello MD [address] [place] [address] [email or web address] Historical LMR Provider 02/24/15 10/21/21 Yasmeen Ward MD [email or web address] Historical LMR Provider 02/24/1510/21 Macho Vincent DO [address] [place] [address] [email or web address] Primary Oncologist Hematology and Oncology 09/13/21 Camila Nayak FNP [address] [place] [address] [email or web address] Nurse Practitioner Medical Oncology 11/03/21 Mile Reynolds CNP [address] [place] [address] [email or web address] Nurse Practitioner Medical Oncology 11/03/21 documented as of this encounter Additional Source Comments The information contained in this document represents components of the legal health record. It is not the complete legal health record.[facility]
--- OUTSIDE RECORDS SUMMARY | 2025-07-14 14:03 | XMS_ITS | Encounter Summary ---
Author Organization [facility] Address [address] [facility] [address] [place] [address] Phone Care Team Providers Care Violin Teacher Name Role Phone Demond Roger MD Unavailable [phone] FeltTianna ng MD Unavailable [phone] Yasmeen Ward MD Unavailable [email or web address] Meghna Parson MD Primary Care Provi vipin Madalyn Rogers MD Primary Care Provide r Meghna Parson MD Primary Care Provi vipin Macho Vincent DO Unavailable Camila Nayak TALENT ACQUISITION SOURCER Unavailable [phone] FUR LINER Unavailable Marian Alicia MD Primary Care Provider [phone] Encounter Details Date Type Department Care Team (Late st Contact Info) Description 11/12/2019 Transcribe Orders Virtual Department 30 [place] [address] Meghna Parson MD [address] [place], [place] [id number] [email or web address] Dysuria (Primary Dx) Social History Tobacco Use [...] Special Requests None 11/12/2019 6:01 PM EST [facility] GRAM STAIN NO ORGANISMS SEEN 11/13/2019 9:06 AM EST [facility] Urine Culture 10,000 to 100,000 colony forming units per mL MIXED HAYLEE (3 OR MORE COLONY TYPES) Culture indicates contamination . Please resubmit if necessary.(A) 11/14/2019 10:46 AM EST [facility] Urine (Urine) 11/12/2019 4:3 0 PM EST 11/12/2019 6:00 PM EST us Meghna Parson MD MICROBIOLOGY - GENE [facility] ORDERABLES Final Result [address] [address] * (ABNORMAL) URINALYSIS WITH SEDIMENT (11/12/2019 4:30 PM EST) WBC 0-4(A) NONE SEEN /hpf [facility] RBC NONE SEEN NONE SEEN /hpf [facility] URINE EPITHELIAL 0-4(A) NONE SEEN [facility] MUCUS Trace(A) NONE SEEN /hpf [facility] BACTERIA NONE SEEN NONE SEEN /hpf [facility] COLOR Yellow Yellow [facility] CLARITY Clear [facility] GLUCOSE Negative Negative [facility] BILI Negative Negative [facility] KETONES Negative Negative [facility] SPECIFIC GRAVITY 1.015 1.005 - 1.030 [facility] BLOOD Negative Negative [facility] PH 5.5 5.0 - 8.0 [facility] Protein-UA Negative Negative [facility] NITRITE Negative Negative [facility] Leukocyte esterase, ur Negative Negative [facility] Urine (Urine) 11/12/2019 4:3 0 PM EST 11/12/2019 6:09 PM EST us Meghna Parson MD URINE ORDERABLES Fi nal Result [facility] [address] [place] [address] documented in this encounter Visit Diagnoses Diagnosis Dysuria- Primary documented in this encounter Additional Health Concerns Infection Onset Date Last Indicated Resolved Time CoV-Exposed Comment:Recent close contact documented in the COVID-19 PCR/PRO order 09/25/2021 10/03/2021 10/10/2021 1:[address] CoV-Presumed 10/09/2022 10/09/2022 10/30/2022 1:21 AM EST CoV-Risk 03/01/2023 03/01/2023 03/12/2023 1:22 AM EDT documented as of this encounter Care Teams Violin Teacher Relationship Specialty Start Date End Date Meghna Parson MD [email or web address] PCP - General Internal Medicine 08/19/17 11/29/19 Madalyn Rogers MD [address] [place] [address] PCP - General 11/30/19 12/30/20 Meghna Parson MD [email or web address] PCP - General Internal Medicine 12/31/20 01/04/22 Marian Aliica MD [address] [place] [address], [address] [place] [address] [email or web address] PCP - General Family Medicine 01/05/22 Demond Roger MD [address] [place] [address] [email or web address] Historical LMR Provider 02/24/15 10/21/21 Tianna Coello MD [address] [place] [address] [email or web address] Historical LMR Provider 02/24/15 10/21/21 Yasmeen Ward MD [email or web address] Historical LMR Provider 02/24/1510/21 Macho Vincent DO [address] [place] [address] [email or web address] Primary Oncologist Hematology and Oncology 09/13/21 Camila Nayak FNP [address] [place] [address] [email or web address] Nurse Practitioner Medical Oncology 11/03/21 Mile Reynolds CNP [address] [place] [address] [email or web address] Nurse Practitioner Medical Oncology 11/03/21 documented as of this encounter Additional Source Comments The information contained in this document represents components of the legal health record. It is not the complete legal health record.[facility]
--- OUTSIDE RECORDS SUMMARY | 2025-07-14 14:04 | XMS_ITS | Encounter Summary ---
Author Organization [facility] Address [address] [employer] [address] [address] Phone Care Team Providers Care Turner Machine Operator Name Role Phone Meghna Parson MD Primary Care Provi vipin Macho Vincent W DO Unavailable [phone] Camila Nayak SUPERVISOR WOOD CREW Unavailable [phone] SHORT PIECE HANDLER Unavailable Marian Alicia MD Primary Care Provider [phone] Encounter Details Date Type Department Care Team (Late st Contact Info) Description 11/07/2021 Ancillary Orders [facility],Outside Imaging [address] [place], [place] [phone] System, Provider [place] In, [place] [address] Social History Tobacco Use Types Packs/Day Years [...] documented as of this encounter Care Teams Turner Machine Operator Relationship Specialty Start Date End Date Meghna Parson MD [email or web address] PCP - General Internal Medicine 12/31/20 01/04/22 Marian Alicia MD [address] [place] [address], [address] [place] [address] [email or web address] PCP - General Family Medicine 01/05/22 Macho Vincent DO [address] [place] [address] [email or web address] U Primary Oncologist Hematology and Oncology 09/13/21 Camila Nayak FNP [address] [place] [address] [email or web address] Nurse Practitioner Medical Oncology 11/03/21 Mile Reynolds CNP [address] [place] [address] Nurse Practitioner Medical Oncology 11/03/21 documented as of this encounter Additional Source Comments The information contained in this document represents components of the legal health record. It is not the complete legal health record.[facility]
--- OUTSIDE RECORDS SUMMARY | 2025-07-14 14:04 | XMS_ITS | Encounter Summary ---
Author Organization [facility] Address [address] [employer] [address] [address] Phone Care Team Providers Care Nuclear Cardiology Technologist Name Role Phone Meghna Parson MD Primary Care Provi vipin Macho Vincent W DO Unavailable [phone] Camila Nayak MENTAL HYGIENIST Unavailable [phone], [address] BAR USEFUL OR BUSSER Unavailable Marian Alicia MD Primary Care Provider [phone] Encounter Details Date Type Department Care Team (Late st Contact Info) Description 11/07/2021 Ancillary Orders [facility],Outside Imaging 30 [place], [place] [phone] System, Provider [place] In, [place] [address] Social History Tobacco Use Types Packs/Day Years [...] documented as of this encounter Care Teams Nuclear Cardiology Technologist Relationship Specialty Start Date End Date Meghna Parson MD [email or web address] PCP - General Internal Medicine 12/31/20 01/04/22 Marian Alicia MD [address] [place] [address], [address] [place] [address] [email or web address] PCP - General Family Medicine 01/05/22 Macho Vincent DO [address] [place] [address] [email or web address] Primary Oncologist Hematology and Oncology 09/13/21 Camila Nayak FNP [address] [place] [address] [email or web address] Nurse Practitioner Medical Oncology 11/03/21 Mile Reynolds CNP [address] [place] [address] Nurse Practitioner Medical Oncology 11/03/21 documented as of this encounter Additional Source Comments The information contained in this document represents components of the legal health record. It is not the complete legal health record.[facility]
--- OUTSIDE RECORDS SUMMARY | 2025-07-14 14:04 | XMS_ITS | Encounter Summary ---
Author Organization [facility] Address [address] [facility] [address] [place] [address] Phone Care Team Providers Care Customer Service Assistant Name Role Phone Demond Roger MD Unavailable [phone] FeltmateTianna MD Unavailable [phone] Yasmeen Ward MD Unavailable [email or web address] Meghna Parson MD Primary Care Provi vipin CarltonMacho gary W DO Unavailable Camila Nayak HEALTH CARE FACILITY ADMINISTRATOR Unavailable Pack, Mile HEAD BOOKKEEPER Unavailable Marian Alicia MD Primary Care Provider [phone] Encounter Details Date Type Department Care Team (Late st Contact Info) Description 05/18/2021 Ancillary Orders Virtual Department 30 [place] [address] Meghna Parson MD [address] [place], [place] [phone] [email or web address] Pain and swelling of left lower leg; [...] as of this encounter Care Teams Customer Service Assistant Relationship Specialty Start Date End Date Meghna Parson MD [email or web address] PCP - General Internal Medicine 12/31/20 01/04/22 Marian Alicia MD [address] [place] [address], [address] [place] [address] [email or web address] PCP - General Family Medicine 01/05/22 Demond Roger MD [address] [place] [address] [email or web address] Historical LMR Provider 02/24/15 10/21/21 Tianna Coello MD [address] [place] [address] [email or web address] Historical LMR Provider 02/24/15 10/21/21 Yasmeen Ward MD [email or web address] Historical LMR Provider 02/24/1510/21 Macho Vincent DO [address] [place] [address] [email or web address] Primary Oncologist Hematology and Oncology 09/13/21 Camila Nayak FNP [address] [place] [address] [email or web address] Nurse Practitioner Medical Oncology 11/03/21 Mile Reynolds CNP [address] [place] [address] [email or web address] Nurse Practitioner Medical Oncology 11/03/21 documented as of this encounter Additional Source Comments The information contained in this document represents components of the legal health record. It is not the complete legal health record.[facility]
--- OUTSIDE RECORDS SUMMARY | 2025-07-14 14:04 | XMS_ITS | Encounter Summary ---
Author Organization [facility] Address [address] [facility] [address] [place] [address] Phone Care Team Providers Care Eye Surgeon Name Role Phone Demond Roger MD Unavailable [phone] FeltTianna ng MD Unavailable [phone] Yasmeen Ward MD Unavailable [email or web address] Meghna Parson MD Primary Care Provi vipin Madalyn Rogers MD Primary Care Provide r Meghna Parson MD Primary Care Provi vipin Macho Vincent DO Unavailable [phone] Camila Nayak ENTRY LEVEL MANAGER Unavailable Mile Reynolds FELTMAKER Unavailable Marian Alicia MD Primary Care Provider [phone] Encounter Details Date Type Department Care Team (Late st Contact Info) Description 08/23/2017 Transcribe Orders [facility] Laboratory 30 [place] [address] Meghna Parson MD [address] [place], [place] [phone] [email or web address] Muscle pain (Primary Dx); Leg cramps; Polyuria [...] EST) PHOSPHORUS 2.3(L) 2.7 - 4.5 mg/dL [facility] Blood 08/23/2017 12:3 2 PM EST 08/23/2017 12:36 PM EST us Meghna Parson MD LAB BLOOD ORDERABLE S Final Result Performing Organization Address [facility]/ZIP Co de Phone Number [address] [address] * Magnesium (08/23/2017 12:32 PM EST) MAGNESIUM 1.8 1.6 - 2.6 mg/dL [facility] Blood 08/23/2017 12:3 2 PM EST 08/23/2017 12:36 PM EST us Meghna Parson MD LAB BLOOD ORDERABLE S Final Result Performing Organization Address [facility] Co de Phone Number [address] [address] * Urine culture (08/23/2017 12:32 PM EST) Specimen Source/ Description URINE CLEAN CATCH URINE URINE [facility] Special Requests None [facility] GRAM STAIN NO ORGANISMS SEEN [facility] Culture/Test 10,000 to 100,000 colony forming units per ml MIXED HAYLEE (3 OR MORE COLONY TYPES) Culture indicates contamination . Please resubmit if necessary. [facility] Report Status 08/25/2017 FINAL [facility] Urine (Urine) 08/23/2017 12: 32 PM EST 08/23/2017 12:37 PM EST Meghna Parson MD MICROBIOLOGY - GENE RAL ORDERABLES Final Result Performing Organization Address [facility] Co de Phone Number [address] [address] * (ABNORMAL) Urinalysis (08/23/2017 12:32 PM EST) COLOR STRAW(A) Yellow [facility] CLARITY Clear [facility] GLUCOSE Negative Negative [facility] BILI Negative Negative [facility] KETONES Negative Negative [facility] SPECIFIC GRAVITY <1.005 1.005 - 1.030 [facility] BLOOD Negative Negative [facility] PH 5.5 5.0 - 8.0 [facility] Protein-UA Negative Negative [facility] NITRITE Negative Negative [facility] Leukocyte esterase, ur Negative Negative [facility] Urine (Urine) 08/23/2017 12: 32 PM EST 08/23/2017 12:36 PM EST us Meghna Parson MD URINE ORDERABLES Fi nal Result Performing Organization Address City/[facility]/ZIP Co de Phone Number [address] [address] * Hemoglobin A1c (08/23/2017 12:32 PM EST) HEMOGLOBIN A1C 4.9 4.3 - 5.8 % [facility] Blood 08/23/2017 12:3 2 PM EST 08/23/2017 12:36 PM EST us Meghna Parson MD LAB BLOOD ORDERABLE S Final Result Performing Organization Address City/[facility]/ZIP Co de Phone Number [address] [address] * (ABNORMAL) CPK (creatine kinase) (08/23/2017 12:32 PM EST) CREATINE KINASE 483(H) 21 - 215 U/L [facility] Blood 08/23/2017 12:3 2 PM EST 08/23/2017 12:36 PM EST us Meghna Parson MD LAB BLOOD ORDERABLE S Final Result Performing Organization Address [facility]/ZIP Co de Phone Number [address] [address] * (ABNORMAL) CBC and differential (08/23/2017 12:32 PM EST) WBC 9.50 3.40 - 11.20 K/uL [facility] RBC 4.88(H) 3.80 - 4.80 M/uL [facility] HGB 14.6 12.0 - 15.0 g/dL [facility] HCT 43.7 36.0 - 46.0 % [facility] PLT 281 130 - 400 K/uL [facility] MCV 89.5 79.0 - 98.0 fL [facility] MCH 29.9 27.0 - 34.8 pg [facility] MCHC 33.4 31.5 - 36.0 g/dL [facility] RDW 12.8 10.8 - 14.6 % [facility] MPV 9.9 9.4 - 12.4 fl [facility] NRBC 0.00 /100 WBCs [facility] ABSOLUTE NRBC 0.00 K/uL [facility] DIFF METHOD Auto [facility] NEUTS 64.0 45.30 - 77.70 % [facility] LYMPHS 25.2 12.30 - 39.70 % [facility] MONOS 8.1 4.10 - 12.80 % [facility] EOS 1.6 0 - 7.2 % [facility] BASOS 0.4 0 - 2.80 % [facility] Granulocytes, immature (%) 0.7 0.0 - 0.9 % [facility] ABSOLUTE NEUTS 6.08 1.40 - 7.70 K/uL [facility] ABSOLUTE LYMPHS 2.39 0.60 - 3.20 K/uL [facility] ABSOLUTE MONOS 0.77(H) 0.11 - 0.59 K/uL [facility] ABSOLUTE EOS 0.15 0.01 - 0.50 K/uL [facility] ABSOLUTE BASOS 0.04 0.00 - 0.08 K/uL [facility] Granulocytes, immature 0.07(H) 0.00 - 0.05 K/uL [facility] Blood 08/23/2017 12:3 2 PM EST 08/23/2017 12:36 PM EST us Meghna Parson MD LAB BLOOD ORDERABLE S Final Result [address] [address] * TSH with reflex (08/23/2017 12:32 PM EST) TSH 1.44 0.27 - 4.20 uIU/mL [facility] Blood 08/23/2017 12:3 2 PM EST 08/23/2017 12:36 PM EST us Meghna Parson MD LAB BLOOD ORDERABLE S Edited Result - Final [facility] [address] [place] [address] * (ABNORMAL) Comprehensive metabolic panel (08/23/2017 12:32 PM EST) SODIUM 142 133 - 146 mmol/L [facility] POTASSIUM 3.7 3.3 - 5.1 mmol/L [facility] CHLORIDE 103 96 - 108 mmol/L [facility] CO2 28 21 - 35 mmol/L [facility] BUN 20(H) 6 - 19 mg/dL [facility] CREATININE 0.80 0.5 - 1.5 mg/dL [facility] GLUCOSE 67(L) 70 - 99 mg/dL [facility] ALBUMIN 4.3 3.9 - 4.8 g/dL [facility] TOTAL PROTEIN 6.5 6.5 - 8.0 g/dL [facility] CALCIUM 9.6 8.4 - 10.3 mg/dL [facility] ALKALINE PHOSPHATASE 73 39 - 117 U/L [facility] TOTAL BILIRUBIN 0.2 0 - 1.2 mg/dL [facility] AST 25 0 - 37 U/L [facility] ALT 13 0 - 40 U/L [facility] GLOBULIN 2.2 1 - 4.8 g/dL [facility] EGFR >60 >60 mL/min/1.7 3m2 [facility] Comment:Abnormal if <60. If patient is -Emirati, multiply the result by 1.21. ANION GAP 15 10 - 20 mmol/L [facility] Blood 08/23/2017 12:3 2 PM EST 08/23/2017 12:36 PM EST us Meghna Parson MD LAB BLOOD ORDERABLE S Final Result [facility] [address] [place] [address] documented in this encounter Visit Diagnoses Diagnosis [...] documented as of this encounter Care Teams Eye Surgeon Relationship Specialty Start Date End Date Meghna Parson MD [email or web address] PCP - General Internal Medicine 08/19/17 11/29/19 Madalyn Rogers MD [address] [place] [address] PCP - General 11/30/19 12/30/20 Meghna Parson MD [email or web address] PCP - General Internal Medicine 12/31/20 01/04/22 Marian Alicia MD [address] [place] [address] 7 [place] [address] [email or web address] PCP - General Family Medicine 01/05/22 Demond Roger MD [address] [place] [address] [email or web address] Historical LMR Provider 02/24/15 10/21/21 Tianna Coello MD [address] [place] [address] [email or web address] Historical LMR Provider 02/24/15 10/21/21 Yasmeen Ward MD [email or web address] Historical LMR Provider 02/24/1510/21 Macho Vincent DO [address] [place] [address] [email or web address] Primary Oncologist Hematology and Oncology 09/13/21 Camila Nayak FNP [address] [place] [address] [email or web address] Nurse Practitioner Medical Oncology 11/03/21 Mile Reynolds CNP [address] [place] [address] [email or web address] Nurse Practitioner Medical Oncology 11/03/21 documented as of this encounter Additional Source Comments The information contained in this document represents components of the legal health record. It is not the complete legal health record.[facility]
--- OUTSIDE RECORDS SUMMARY | 2025-07-14 14:04 | XMS_ITS | Encounter Summary ---
Author Organization [facility] Address [address] [facility] [address] [place] [address] Phone Care Team Providers Care Surgical Sales Representative Name Role Phone Demond Roger MD Unavailable [phone] FeltmateTianna MD Unavailable [phone] Yasmeen Ward MD Unavailable [email or web address] eMghna Parson MD Primary Care Provi vipin CarltonMacho gary W DO Unavailable Camila Nayak PRIMARY MILL ROLLER Unavailable GailTristanen AQUATIC SCIENTIST Unavailable Marian Alicia MD Primary Care Provider [phone] Encounter Details Date Type Department Care Team (Late st Contact Info) Description 05/18/2021 Transcribe Orders Virtual Department 30 [place] [address] Meghna Parson MD [address] [place], [place] [id number] [email or web address] Cellulitis, unspecified cellulitis site (Primary Dx); Pain [...] documented as of this encounter Care Teams Surgical Sales Representative Relationship Specialty Start Date End Date Meghna Parson MD [email or web address] PCP - General Internal Medicine 12/31/20 01/04/22 Marian Alicia MD [address] [place] [address], [address] [place] [address] [email or web address] PCP - General Family Medicine 01/05/22 Demond Roger MD [address] [place] [address] [email or web address] Historical LMR Provider 02/24/15 10/21/21 Tianna Coello MD [address] [place] [address] [email or web address] Historical LMR Provider 02/24/15 10/21/21 Yasmeen Ward MD [email or web address] Historical LMR Provider 02/24/1510/21 Macho Vincent DO [address] [place] [address] [email or web address] Primary Oncologist Hematology and Oncology 09/13/21 Camila Nayak FNP [address] [place] [address] [email or web address] Nurse Practitioner Medical Oncology 11/03/21 Mile Reynolds CNP [address] [place] [address] [email or web address] Nurse Practitioner Medical Oncology 11/03/21 documented as of this encounter Additional Source Comments The information contained in this document represents components of the legal health record. It is not the complete legal health record.[facility]
--- OUTSIDE RECORDS SUMMARY | 2025-07-14 14:04 | XMS_ITS | Encounter Summary ---
Author Organization [facility] Address [address] [facility] [address] [place] [address] Phone Care Team Providers Care Community Coordinator Name Role Phone Dell Chiang MD Primary Care Provider [phone] Demond Roger MD Unavailable [phone] FeltTianna ng MD Unavailable [phone] Yasmeen Ward MD Unavailable [email or web address] Meghna Parson MD Primary Care Provi vipin Madalyn Rogers MD Primary Care Provide r Meghna Parson MD Primary Care Provi vipin Macho Vincent W DO Unavailable [phone] Camila Nayak LAWN SPRINKLER INSTALLER Unavailable Mile Reynolds CONTOUR STITCHER Unavailable Marian Alicia MD Primary Care Provider [phone] Encounter Details Date Type Department Care Team (Late st Contact Info) Description 08/04/2017 Ancillary Orders [address] [address] Meghna Parson MD 6 [place] [address] [email or web address] Cystic thyroid nodule Social History Tobacco Use [...] documented as of this encounter Care Teams Community Coordinator Relationship Specialty Start Date End Date Dell Chiang MD [address] [facility] [address] [place] [address] PCP - General 02/18/15 08/18/17 Meghna Parson MD [email or web address] PCP - General Internal Medicine 08/19/17 11/29/19 Madalyn Rogers MD [address] [place] [address] PCP - General 11/30/19 12/30/20 Meghna Parson MD [email or web address] PCP - General Internal Medicine 12/31/20 01/04/22 Marian Alicia MD [address] [place] [address] 7 [place] [address] [email or web address] PCP - General Family Medicine 01/05/22 Demond Roger MD [address] [place] [address] [email or web address] Historical LMR Provider 02/24/15 10/21/21 Tianna Coello MD [address] [place] [address] [email or web address] Historical LMR Provider 02/24/15 10/21/21 Yasmeen Ward MD [email or web address] Historical LMR Provider 02/24/1510/21 Macho Vincent DO 30 [place] [address] [email or web address]. [facility] Primary Oncologist Hematology and Oncology 09/13/21 Camila Nayak FNP 30 [place] [address] [email or web address] Nurse Practitioner Medical Oncology 11/03/21 Mile Reynolds CNP [address] [place] [address] [email or web address] Nurse Practitioner Medical Oncology 11/03/21 documented as of this encounter Additional Source Comments The information contained in this document represents components of the legal health record. It is not the complete legal health record.[facility]
--- OUTSIDE RECORDS SUMMARY | 2025-07-14 14:04 | XMS_ITS | Clinical Summary ---
Author Organization [facility] Address [address] [address] Phone Care Team Providers Care Billing Collections Specialist Name Role Phone Macho Vincent DO Unavailable [phone] Camila Nayak SHOWER DOORS AND PANELS FABRICATOR Unavailable [employer] ROVING WINDER Unavailable Marian Alicia MD Primary Care Provider [phone] Allergies Active Allergy Reactions Criticality Noted Date [...] a history of DVTs. She has a [place] filter in place and she is also [...] fitting for new mask. Input referral to [facility] sleep med. Assessment & Plan (04/02/2018 [...] issues or concerns. She understands and agrees. [facility] (current) use of anticoagulants 03/01/2022 03/18/2024 Assessment [...] cor pulmonale 10/18/2021 01/23/2023 Overview (10/18/2021): 08/13/2021, [facility]. Assessment & Plan (04/17/2022 9:27 AM EDT): [...] staff to obtain images and records from [facility] and plan to review them once available. [...] Type Department Care Team Description 06/03/2025 Telephone [facility] General Surgical Care 15 Laurie [...] Gets the flu shot elsewhere., Ordered By: [id number]) Pneumococcal polysaccharide PPSV23 05/25/2008, Pneumococcal, Unspecified Formulation [...] (07/27/2023 8:13 AM EDT) HDL 56 mg/dL [facility] Comment: Interpretation <40 mg/dL: Low HDL cholesterol (major risk factor for CHD) Greater than or equal to 60 mg/dL: High HDL cholesterol ( negative risk factor for CHD) HDL - cholesterol is affected by a number of factors, e.g. smoking, excerise, hormones, sex and age. CHOLESTEROL 271(H) 0 - 240 mg/dL [facility] TRIGLYCERIDES 193(H) 30 - 160 mg/dL [facility] LDL 176(H) 50 - 129 mg/dL [facility] Comment: LDL levels in terms of risk for coronary heart disease: <100 mg/dL: Optimal 100-129 mg/dL: Near or above optimal 130-159 mg/dL: Borderline high 160-189 mg/dL: High >190 mg/dL: Very High CARDIAC RISK RATIO 4.8(H) 3.3 - 4.4 [facility] Blood 07/27/2023 8:13 AM EDT 07/27/2023 8:21 AM EDT us Marian Alicia MD LAB BLOOD ORDERABLES Bonnie l Result Performing Organization Address City/State/[facility] Co de Phone Number [address] [address] * BI MAMMOGRAM SCREENING WITH TOMOSYNTHESIS WITH [...] Most Recently Relevant to Health Maintenance Insurance [facility] [place] [place] [address] [place] [address] [place] [address] [place] [facility]HER [facility] [place] [facility] Advance Directives For more information, please contact: [phone] (9AM - 5PM Estella/[facility], Saturday-Saturday) Documents on File Type Date Recorded Patient Emt Dispatcher Expl anation Advance Directive - Non Epic LMR 09/13/2011 12:00 AM Care Teams Billing Collections Specialist Relationship Specialty Start Date End Date Marian Alicia MD [address] [place] [address], [address] [place]IS Cameron [address] PCP - General Family Medicine 01/05/22 Macho Vincent DO [address] [place] [address] [email or web address] Primary Oncologist Hematology and Oncology 09/13/21 Camila Nayak FNP [address] [place] [address] [email or web address] Nurse Practitioner Medical Oncology 11/03/21 Mile Reynolds CNP [address] [place] [address] [email or web address] Nurse Practitioner Medical Oncology 11/03/21 Additional Source Comments The information contained in this document represents components of the legal health record. It is not the complete legal health record.[facility]
--- OUTSIDE RECORDS SUMMARY | 2025-07-14 14:04 | XMS_ITS | Encounter Summary ---
Author Organization [facility] Address [address] [facility] [address] [place] [address] Phone Care Team Providers Care Pipe Roller Name Role Phone eDll Chiang MD Primary Care Provider [phone] Demond Roger MD Unavailable [phone] FeltTianna ng MD Unavailable [phone] Yasmeen Ward MD Unavailable [email or web address] Meghna Parson MD Primary Care Provi vipin Madalyn Rogers MD Primary Care Provide r Meghna Parson MD Primary Care Provi vipin Macho Vincent DO Unavailable Camila Nayak POWER ENGINEER Unavailable Mile Reynolds SENIOR MAINFRAME PROGRAMMER ANALYST Unavailable Marian Alicia MD Primary Care Provider [phone] Encounter Details Date Type Department Care Team (Late st Contact Info) Description 08/05/2017 Transcribe Orders [facility] PFT Lab 30 [place] [address] Steven Trinidad DO 269 [facility], [address] [place] [address] [phone] (work) [email or web address] persistent asthma, unspecified whether complicated (Primary [...] documented as of this encounter Care Teams Pipe Roller Relationship Specialty Start Date End Date Dell Chiang MD [address] [facility] [address] [place] [address] PCP - General 02/18/15 08/18/17 Meghna Parson MD [email or web address] PCP - General Internal Medicine 08/19/17 11/29/19 Madalyn Rogers MD [address] [place] [address] PCP - General 11/30/19 12/30/20 Meghna Parson MD [email or web address] PCP - General Internal Medicine 12/31/20 01/04/22 Marian Alicia MD [address] [place] [address], [address] [place] [address] [email or web address] PCP - General Family Medicine 01/05/22 Demond Roger MD [address] [place] [address] [email or web address] Historical LMR Provider 02/24/15 10/21/21 Tianna Coello MD [address] [place] [address] [email or web address] Historical LMR Provider 02/24/15 10/21/21 Yasmeen Ward MD [email or web address] Historical LMR Provider 02/24/1510/21 Macho Vincent DO [address] [place] [address] [email or web address] Primary Oncologist Hematology and Oncology 09/13/21 Camila Nayak FNP [address] [place] [address] [email or web address] Nurse Practitioner Medical Oncology 11/03/21 Mile Reynolds CNP [address] [place] [address] [email or web address] Nurse Practitioner Medical Oncology 11/03/21 documented as of this encounter Additional Source Comments The information contained in this document represents components of the legal health record. It is not the complete legal health record.[facility]
--- OUTSIDE RECORDS SUMMARY | 2025-07-14 14:04 | XMS_ITS | Encounter Summary ---
Author Organization [facility] Address [address] [address] Phone Care Team Providers Care Kiln Loader Name Role Phone Meghna Parson MD Primary Care Provi vipin Macho Vincent W DO Unavailable [phone] Camila Nayak PROOF COINS INSPECTOR Unavailable [phone] Pack, Mile WILDLIFE MANAGEMENT PROFESSOR Unavailable Marian Alicia MD Primary Care Provider [phone] Encounter Details Date Type Department Care Team (Late st Contact Info) Description 11/07/2021 Ancillary Orders [facility],Outside Imaging 30 [place], [place] [id number] System, Provider [place] In, [place] [address] Social History Tobacco Use Types Packs/Day Years [...] documented as of this encounter Care Teams Kiln Loader Relationship Specialty Start Date End Date Meghna Parson MD [email or web address] PCP - General Internal Medicine 12/31/20 01/04/22 Marian Alicia MD [address] [place] [address], [address] [place] [address] [email or web address] PCP - General Family Medicine 01/05/22 Macho Vincent DO [address] [place] [address] [email or web address] U Primary Oncologist Hematology and Oncology 09/13/21 Camila Nayak FNP [address] [place] [address] [email or web address] Nurse Practitioner Medical Oncology 11/03/21 Mile Reynolds CNP [address] [place] [address] Nurse Practitioner Medical Oncology 11/03/21 documented as of this encounter Additional Source Comments The information contained in this document represents components of the legal health record. It is not the complete legal health record.[facility]
--- OUTSIDE RECORDS SUMMARY | 2025-07-14 14:04 | XMS_ITS | Encounter Summary ---
Author Organization [facility] Address [address] [facility] [address] [place] [address] Phone Care Team Providers Care Flying Squad Salesperson Name Role Phone Dell Chiang MD Primary Care Provider [phone] Demond Roger MD Unavailable [phone] FeltTianna ng MD Unavailable [phone] Yasmeen Ward MD Unavailable [email or web address] Meghna Parson MD Primary Care Provi vipin Madalyn Rogers MD Primary Care Provide r Meghna Parson MD Primary Care Provi vipin Macho Vincent W DO Unavailable Camila Nyaak INFORMATION TECHNOLOGY ADVISOR Unavailable [phone] [address] Reynolds FRANCHISE SALES DIRECTOR Unavailable Marian Alicia MD Primary Care Provider [phone] Encounter Details Date Type Department Care Team (Late st Contact Info) Description 08/13/2017 Ancillary Orders [facility] 30 [place] [address] Meghna Parson MD [address] [place], [place] [phone] [email or web address] Chest discomfort Social History Tobacco Use Types [...] pharynx on clinical exam. COMPARISON: None FINDINGS: Collar Setter AP view of the abdomen shows a [...] pharynx on clinical exam. COMPARISON: None FINDINGS: Collar Setter AP view of the abdomen shows a [...] documented as of this encounter Care Teams Flying Squad Salesperson Relationship Specialty Start Date End Date Dell Chiang MD [address] [place] [address] PCP - General 02/18/15 08/18/17 Meghna Parson MD [email or web address] PCP - General Internal Medicine 08/19/17 11/29/19 Madalyn Rogers MD [address] [place] [address] PCP - General 11/30/19 12/30/20 Meghna Parson MD [email or web address] PCP - General Internal Medicine 12/31/20 01/04/22 Marian Alicia MD [address] [place] [address] 7 [place] [address] [email or web address] PCP - General Family Medicine 01/05/22 Demond Roger MD [address] [place] [address] [email or web address] Historical LMR Provider 02/24/15 10/21/21 Tianna Coello MD [address] [place] [address] [email or web address] Historical LMR Provider 02/24/15 10/21/21 Yasmeen Ward MD [email or web address] Historical LMR Provider 02/24/1510/21 Macho Vincent DO 30 [place] [address] [email or web address]. [email or web address] Primary Oncologist Hematology and Oncology 09/13/21 Camila Nayak FNP 30 [place] [address] [email or web address] Nurse Practitioner Medical Oncology 11/03/21 Mile Reynolds CNP [address] [place], [place] [address] [email or web address] Nurse Practitioner Medical Oncology 11/03/21 documented as of this encounter Additional Source Comments The information contained in this document represents components of the legal health record. It is not the complete legal health record.[facility]
--- OUTSIDE RECORDS SUMMARY | 2025-07-14 14:05 | XMS_ITS | Encounter Summary ---
Author Organization [facility] Address [address] [place] [address] Phone Care Team Providers Care Enologist Name Role Phone Macho Vincent DO Unavailable [phone] Camila Nayak MANAGER TECHNICAL SUPPORT Unavailable PackTristanen CAR LOT ATTENDANT Unavailable Marian Alicia MD Primary Care Provider [phone] Encounter Details Date Type Department Care Team (Late st Contact Info) Description 03/01/2023 Procedure [facility], Ct Scan - [address] [address] Social History Tobacco Use Types Packs/Day Years [...] high school, GED, job training, learning the [place] language, technical skills, or developing parenting skills)? [...] Indicated 03/01/2023 3:51 PM EDT Yanick Gonzales, OZEY * [place] Suicide Severity Rating Scale (Screener/Recent Self-Report) Question [...] documented as of this encounter Care Teams Enologist Relationship Specialty Start Date End Date Marian Alicia MD [address] [place] [address], [address] [place] [address] [email or web address] PCP - General Family Medicine 01/05/22 Macho Vincent DO [address] [place] [address] [email or web address] Primary Oncologist Hematology and Oncology 09/13/21 Camila Nayak FNP [address] [place] [address] [email or web address] Nurse Practitioner Medical Oncology 11/03/21 Mile Reynolds CNP [address] [place] [address] [email or web address] Nurse Practitioner Medical Oncology 11/03/21 documented as of this encounter Additional Source Comments The information contained in this document represents components of the legal health record. It is not the complete legal health record.[facility]
--- OUTSIDE RECORDS SUMMARY | 2025-07-14 14:05 | XMS_ITS | Encounter Summary ---
Author Organization [facility] Address [address] [facility] [address] [place] [address] Phone Care Team Providers Care Airfield Manager Name Role Phone Demond Roger MD Unavailable [phone] FeltTianna ng MD Unavailable [phone] Yasmeen Ward MD Unavailable [email or web address] Meghna Parson MD Primary Care Provi vipin Madalyn Rogers MD Primary Care Provide r Meghna Parson MD Primary Care Provi vipin Macho Vincent DO Unavailable [phone] Camila Nayak TRASHMAN Unavailable Mile Reynolds PLANT ASSIGNER Unavailable Marian Alicia MD Primary Care Provider [phone] Encounter Details Date Type Department Care Team (Late st Contact Info) Description 10/24/2017 Transcribe Orders [facility] PFT Lab 30 [place] [address] Bairon Aparicio MD, MS [address] [id number] [email or web address] Social History Tobacco Use Types Packs/Day Years [...] documented as of this encounter Care Teams Airfield Manager Relationship Specialty Start Date End Date Meghna Parson MD [email or web address] PCP - General Internal Medicine 08/19/17 11/29/19 Madalyn Rogers MD [address] [place] [address] PCP - General 11/30/19 12/30/20 Meghna Parson MD [email or web address] PCP - General Internal Medicine 12/31/20 01/04/22 Marian Alicia MD [address] [place] [address], [address] [place] [address] [email or web address] PCP - General Family Medicine 01/05/22 Demond Roger MD [address] [place] [address] [email or web address] Historical LMR Provider 02/24/15 10/21/21 Tianna Coello MD [address] [place] [address] [email or web address] Historical LMR Provider 02/24/15 10/21/21 Yasmeen Ward MD [email or web address] Historical LMR Provider 02/24/1510/21 Macho Vincent DO [address] [place] [address] [email or web address] Primary Oncologist Hematology and Oncology 09/13/21 Camila Nayak FNP [address] [place] [address] [email or web address] Nurse Practitioner Medical Oncology 11/03/21 Mile Reynolds CNP [address] [place] [address] [email or web address] Nurse Practitioner Medical Oncology 11/03/21 documented as of this encounter Additional Source Comments The information contained in this document represents components of the legal health record. It is not the complete legal health record.[facility]
--- OUTSIDE RECORDS SUMMARY | 2025-07-14 14:05 | XMS_ITS | Encounter Summary ---
Author Organization [facility] Address [address] [facility] [address] [place] [address] Phone Care Team Providers Care Environmental Assistant Name Role Phone Demond Roger MD Unavailable [phone] FeltmateTianna MD Unavailable [phone] Yasmeen Ward MD Unavailable [email or web address] Meghna Parson MD Primary Care Provi vipin CarltonMacho gary W DO Unavailable [phone] Camila Nayak OCCUPATIONAL THERAPIST REHAB MANAGER Unavailable Gail, Mile POWER SYSTEM DISPATCHER Unavailable Marian Alicia MD Primary Care Provider [phone] Encounter Details Date Type Department Care Team (Late st Contact Info) Description 05/22/2021 Ancillary Orders [facility], X-Ray - [address] [address] Sabas, London Verde MD [address] [facility] [address] [place], [place] [id number] [email or web address] Social History Tobacco Use Types [...] documented as of this encounter Care Teams Environmental Assistant Relationship Specialty Start Date End Date Meghna Parson MD [email or web address] PCP - General Internal Medicine 12/31/20 01/04/22 Marian Alicia MD [address] [place] [address] 7 [place] [address] [email or web address] PCP - General Family Medicine 01/05/22 Demond [place] MD [address] [place] [address] [email or web address] Historical LMR Provider 02/24/15 10/21/21 Tianna Coello MD [address] [place] [address] [email or web address] Historical LMR Provider 02/24/15 10/21/21 Yasmeen Ward MD [email or web address] Historical LMR Provider 02/24/1510/21 Macoh Vincent DO [address] [place] [address] [email or web address]. [facility] Primary Oncologist Hematology and Oncology 09/13/21 Camila Nayak FNP [address] [place] [address] [email or web address] Nurse Practitioner Medical Oncology 11/03/21 Mile Reynolds CNP [address] [place], [place] [address] [email or web address] Nurse Practitioner Medical Oncology 11/03/21 documented as of this encounter Additional Source Comments The information contained in this document represents components of the legal health record. It is not the complete legal health record.[facility]
--- OUTSIDE RECORDS SUMMARY | 2025-07-14 14:05 | XMS_ITS | Encounter Summary ---
Author Organization [facility] Address [address] [address] Phone Care Team Providers Care Small Arms Repairer Name Role Phone Meghna Parson MD Primary Care Provi vipin Macho Vincent W DO Unavailable [phone] Camila Nayak SUPPORT CLERK Unavailable [phone] Pack, Mile SPORTS MEDIA Unavailable Marian Alicia MD Primary Care Provider [phone] Encounter Details Date Type Department Care Team (Late st Contact Info) Description 11/07/2021 Ancillary Orders [facility],Outside Imaging [address] [place], [place] [id number] System, Provider Not In, [place] [address] Social History Tobacco Use Types Packs/Day Years [...] documented as of this encounter Care Teams Small Arms Repairer Relationship Specialty Start Date End Date Meghna Parson MD [email or web address] PCP - General Internal Medicine 12/31/20 01/04/22 Marian Alicia MD [address] [place] [address], [address] [place] [address] [email or web address] PCP - General Family Medicine 01/05/22 Macho Vincent DO [address] [place] [address] [email or web address] U Primary Oncologist Hematology and Oncology 09/13/21 Camila Nayak FNP [address] [place] [address] [email or web address] Nurse Practitioner Medical Oncology 11/03/21 Mile Reynolds CNP [address] [place] [address] Nurse Practitioner Medical Oncology 11/03/21 documented as of this encounter Additional Source Comments The information contained in this document represents components of the legal health record. It is not the complete legal health record.[facility]
--- OUTSIDE RECORDS SUMMARY | 2025-07-14 14:05 | XMS_ITS | Encounter Summary ---
Author Organization [facility] Address [address] [address] Phone Care Team Providers Care Brick Machine Operator Name Role Phone Meghna Parson MD Primary Care Provi vipin Macho Vincent W DO Unavailable Camila Nayak LICENSED MARRIAGE AND FAMILY THERAPIST Unavailable [phone] Mile MACHINIST GENERAL Unavailable Marian Alicia MD Primary Care Provider [phone] Encounter Details Date Type Department Care Team (Late st Contact Info) Description 11/07/2021 Ancillary Orders [facility],Outside Imaging [address] [place], [place] [phone] System, Provider [place] In, [place] [address] Social History Tobacco Use Types Packs/Day Years [...] documented as of this encounter Care Teams Brick Machine Operator Relationship Specialty Start Date End Date Meghna Parson MD [email or web address] PCP - General Internal Medicine 12/31/20 01/04/22 Marian Alicia MD [address] [place] [address], [address] [place] [address] [email or web address] PCP - General Family Medicine 01/05/22 Macho Vincent DO [address] [place] [address] [email or web address] U Primary Oncologist Hematology and Oncology 09/13/21 Camila Nayak FNP [address] [place] [address] [email or web address] Nurse Practitioner Medical Oncology 11/03/21 Mile Reynolds CNP [address] [place] [address] Nurse Practitioner Medical Oncology 11/03/21 documented as of this encounter Additional Source Comments The information contained in this document represents components of the legal health record. It is not the complete legal health record.[facility]
--- OUTSIDE RECORDS SUMMARY | 2025-07-14 14:05 | XMS_ITS | Encounter Summary ---
Author Organization [facility] Address [address] [address] Phone Care Team Providers Care Supervisor Facepiece Line Name Role Phone Meghna Parson MD Primary Care Provi vipin Macho Vincent W DO Unavailable [phone] Camila Nayak LAP WELDER Unavailable [phone] Mile GUNSMITH APPRENTICE Unavailable Marian Alicia MD Primary Care Provider [phone] Encounter Details Date Type Department Care Team (Late st Contact Info) Description 11/07/2021 Ancillary Orders [facility],Outside Imaging 30 [place], [place] [phone] System, Provider [place] In, [place] [address] Social History Tobacco Use Types Packs/Day Years [...] as of this encounter Care Teams Supervisor Facepiece Line Relationship Specialty Start Date End Date Meghna Parson MD [email or web address] PCP - General Internal Medicine 12/31/20 01/04/22 Marian Alicia MD [address] [place] [address], [address] [place] [address] [email or web address] PCP - General Family Medicine 01/05/22 Macho Vincent DO [address] [place] [address] [email or web address] U Primary Oncologist Hematology and Oncology 09/13/21 Camila Nayak FNP [address] [place] [address] [email or web address] Nurse Practitioner Medical Oncology 11/03/21 Mile Reynolds CNP [address] [place] [address] Nurse Practitioner Medical Oncology 11/03/21 documented as of this encounter Additional Source Comments The information contained in this document represents components of the legal health record. It is not the complete legal health record.[facility]
--- OUTSIDE RECORDS SUMMARY | 2025-07-14 14:05 | XMS_ITS | Clinical Summary ---
Author Organization [address] [facility] Address [address] [place] [address] Phone Care Team Providers Care Insurance Underwriter Sales Name Role Phone Aretha Bain NP Primary Care Provider [phone] Family History Medical History Relation Name Comments [...] Last Done Comments Breast Cancer Screening 1966 Colorectal Cancer Screening: Colonoscopy 1966 DTaP,Tdap,and Td Vaccines (1 - Tdap) 1985 Hepatitis B Vaccines (1 of 3 - 19+ 3-dose series) 1985 Cervical Cancer Screening: P ap Smear 1987 Pneumococcal Vaccine: 50+ Ye ars (1 of 1 - PCV) 2016 Zoster Vaccines (1 of 2) 2016 HIV Screening 09/22/2022 Hepatitis C Screening 09/22/2022 [...] patient's age to complete this topic Insurance [phone] (Work) [address] [place] [id number] MEDICAID - [place] Care Teams Insurance Underwriter Sales Relationship Specialty Start Date End Date Aretha Bain NP [address] [place] [phone] PCP - General Nurse Practitioner 03/02/25
--- OUTSIDE RECORDS SUMMARY | 2025-07-14 14:05 | XMS_ITS | Encounter Summary ---
Author Organization [facility] Address [address] [facility] [address] [place] [address] Phone Care Team Providers Care Supervisor Steel Division Name Role Phone Macho Vincent DO Unavailable [phone] Camila Nayak ENRICHMENT TEACHER Unavailable [employer] CUSTOMS BROKER Unavailable Marian Alicia MD Primary Care Provider [phone] Reason for Visit * Reason Onset Date Comments Appointment 06/03/2025 Encounter Details Date Type Department Care Team (Late st Contact Info) Description 06/03/2025 Telephone [employer] [facility] General Surgical Care [address] [place], [place] [phone] Unknown, Unknown, Appointment Social History Tobacco Use [...] with the weight loss dept. Central Support Media Developer (Please do not reply to this user; this inbox is not monitored.) Thank you. documented in this encounter Plan of Treatment Not on file documented as of this encounter Visit Diagnoses Not on filedocumented in this encounter Additional Health Concerns Assessment Noted Time PHQ-2 Depression Total Score: 1 01/24/20 23 4:10 PM EDT documented as of this encounter Care Teams Supervisor Steel Division Relationship Specialty Start Date End Date Marian Alicia MD [address] [place] [address], [address] [place] [address] [email or web address] PCP - General Family Medicine 01/05/22 Macho Vincent DO [address] [place] [address] [email or web address] Primary Oncologist Hematology and Oncology 09/13/21 Camila Nayak FNP [address] [place] [address] Nurse Practitioner Medical Oncology 11/03/21 Mile Reynolds CNP [address] [place] [address] Nurse Practitioner Medical Oncology 11/03/21 documented as of this encounter Additional Source Comments The information contained in this document represents components of the legal health record. It is not the complete legal health record.[facility]
== END 2025-07-14 13:48 | disposition home or self-care (01) ==
LOC: HO.HBS 12:39
PROVIDERS: PCP Nurse Practitioner Family; Visit Provider Physician Assistant Surgical
DX: E66.01 Morbid (severe) obesity due to excess calories (principal); Z68.42 Body mass index [BMI] 45.0-49.9, adult; Z90.3 Acquired absence of stomach [part of]; Z98.84 Bariatric surgery status
CPT/HCPCS: 99024

== ENCOUNTER → 2025-07-14 12:39 | Outpatient (BNVA) | payer OTHER, SELFPAY | PROVIDERS: PCP Nurse Practitioner Family; Visit Provider Physician Assistant Surgical | DX: Z48.815 Encounter for surgical aftercare following surgery on the digestive system (principal); E66.01 Morbid (severe) obesity due to excess calories; Z98.84 Bariatric surgery status; Z68.42 Body mass index [BMI] 45.0-49.9, adult; Z79.01 Long term (current) use of anticoagulants | CPT/HCPCS: 99212 ==

== ENCOUNTER 2025-07-15 09:39 | Outpatient (AMB) | payer OTHER, SELFPAY ==
--- NOTE | 2025-07-15 09:30 | MHC.WMTHER ---
Intake Intake Visit Reasons: TV PO LSG 07/06/25 Allergies ciprofloxacin Allergy (Verified 07/14/25 13:15) rash nitrofurantoin (From Macrobid) Allergy (Verified 07/14/25 13:15) rash Sulfa (Sulfonamide Antibiotics) Allergy (Verified 07/14/25 13:15) rash quetiapine (From Seroquel) Adverse Reaction (Verified 07/14/25 13:15) suicidal ideation PFSH Medical History (Updated 07/14/25 @ 13:26 by BRANDON Tidwell) Steatosis, liver Hx pulmonary embolism Arthritis DJD (degenerative joint disease) Morbid obesity with BMI of 50.0-59.9, adult Sleep apnea treated with continuous positive airway pressure (CPAP) 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 DVT (deep venous thrombosis) History of sciatica NIURKA (generalized anxiety disorder) MDD (major depressive disorder), recurrent severe, without psychosis GERD (gastroesophageal reflux disease) Common variable immunodeficiency Hypertension Anxiety Depression PTSD (post-traumatic stress disorder) Surgical History (Updated 07/15/25 @ 09:55 by Sarika Finney [facility]) S/P laparoscopic sleeve gastrectomy Hx of tonsillectomy (1975) H/O colonoscopy History of esophagogastroduodenoscopy (EGD) (05/26/25) History of inferior vena caval filter placement (08/14/21) History of hysterectomy (2003) Family History Mother Thyroid condition Acute ITP Anxiety Depression Father CHF (congestive heart failure) Enlarged heart Stomach cancer Social History Household Members: Family Household Members Other:: father Housing: House Are you a primary respiratory care specialist to a significant other at home: No Do you presently have visiting nurse or other home services: No 75 years or older and lives alone: No Alcohol intake: never Comment: Pt is A&O and ambulates independently w/walker Patient Tobacco Use Status: Never used Tobacco e-Cigarette/Vaping Use: Never Used service: No Current occupational status: employed Sexual orientation: did not discuss. Behavioral Health Assessment Weight Management Therapy Therapy Notes Details Subjective: The patient underwent weight loss surgery on 07/06/2025. Her weight on the day of surgery was 283 lbs; as of 07/14/2025, her weight is 375 lbs. She denies any pain or complications during recovery and reports tolerating the liquid diet well. Mood is stable and she feels motivated. She receives support from her father at home and four close friends. The patient denies experiencing hunger but notes occasional thoughts about food. Objective: The patient presents for a behavioral health post-operative follow-up visit. A guided emotional check-in was conducted to assess her current functioning, recovery, mood, and emotional state. Psychoeducation was provided on the emotional and psychological adjustments commonly experienced after bariatric surgery. We also focused on distinguishing between hunger and cravings or food thoughts, exploring possible reasons for these experiences, and strategies to work on her mindset. Emphasis was placed on becoming mindful of her physical and mental needs during these times while staying on track. The importance of adhering to the Weight Management Program (WMP) providers' instructions was emphasized, including the pace of drinking and following the meal and exercise plan. Tips and recommendations for long-term success were also discussed. Program resources were provided, and the patient was invited to join our Facebook group to stay informed about ongoing events and activities. Assessment/Response: Mental status: WNL Risk reported/identified: None Assessment & Plan Assessment & Plan (1) PTSD (post-traumatic stress disorder): Code(s): F43.10 - Post-traumatic stress disorder, unspecified (2) MDD (major depressive disorder), recurrent severe, without psychosis: Code(s): F33.2 - Major depressive disorder, recurrent severe without psychotic features (3) Anxiety: Code(s): F41.9 - Anxiety disorder, unspecified (4) Status post bariatric surgery: Onset Date: 07/06/25 Comment: Dr. Singh Code(s): Z98.84 - Bariatric surgery status Plan We will meet again in 2-3 weeks for BH support post-op. Next pb: 08/02/2025 at 1pm, video Telehealth Telehealth Telehealth Platform: [employer] Location of provider rendering services: other (Home office. [place], [place]) Location of patient: address on file Patient Identification confirmed using: Name, : Yes Telehealth method: video Patient verbally consented to treatment: Yes Patient verbally consented to billing insurance company: Yes Patient informed of any privacy concerns related to visit: Yes Minutes spent on Phone/Video with Pt.: 30 Coding Level of Care Code Established Pt Tele Psytx 30 mins ([id number]) Patient Type Established Diagnoses PTSD (post-traumatic stress disorder) F43.10 MDD (major depressive disorder), recurrent severe, without psychosis F33.2 Anxiety F41.9 Status post bariatric surgery Z98.84 Time Spent (min) 30
--- OUTSIDE RECORDS SUMMARY | 2025-07-15 10:38 | XMS_ITS | Encounter Summary ---
Author Organization [facility] Address [address] [facility] [address] [place] [address] Phone Care Team Providers Care Toll Line Repairer Name Role Phone Demond [place] MD Unavailable [phone] FeltTianna ng MD Unavailable [phone] Yasmeen Ward MD Unavailable [email or web address] Meghna Parson MD Primary Care Provi vipin Madalyn [place] MD Primary Care Provide r Meghna Parson MD Primary Care Provi vipin Macho Vincent DO Unavailable Camila Nayak HOT METAL MIXER OPERATOR Unavailable Mile Reynolds DIRECTOR CAREER SERVICES Unavailable Marian Alicia MD Primary Care Provider [phone] Encounter Details Date Type Department Care Team (Late st Contact Info) Description 12/10/2018 Ancillary Orders [facility], X-Ray - [address] [address] Meghna aPrson MD [address] [place], [place] [phone] [email or web address] Social History Tobacco Use Types Packs/Day [...] lumbar spondylosis. POS - [id number] Edited by: Nicoel Gonsalves on 12/10/2018 1:04 PM Narrative 12/10/2018 [...] joints. Facet arthritic changes notable L3 through [id number]. IMPRESSION: No evidence for acute fracture. Degenerative [...] joints. Facet arthritic changes notable L3 through [id number]. IMPRESSION: No evidence for acute fracture. Degenerative [...] documented as of this encounter Care Teams Toll Line Repairer Relationship Specialty Start Date End Date Meghna Parson MD [email or web address] PCP - General Internal Medicine 08/19/17 11/29/19 Madalyn [place] MD [address] [place] [address] PCP - General 11/30/19 12/30/20 Meghna Parson MD [email or web address] PCP - General Internal Medicine 12/31/20 01/04/22 Marian Alicia MD [address] [place] [address], [address] [place] [address] [email or web address] PCP - General Family Medicine 01/05/22 Demond [place] MD [address] [place] [address] [email or web address] Historical LMR Provider 02/24/15 10/21/21 Tianna Coello MD [address] [place] [address] [email or web address] Historical LMR Provider 02/24/15 10/21/21 Yasmeen Ward MD [email or web address] Historical LMR Provider 02/24/1510/21 Macho Vnicent DO [address] [place] [address] [email or web address] Primary Oncologist Hematology and Oncology 09/13/21 Camila Nayak FNP [address] [place] [address] [email or web address] Nurse Practitioner Medical Oncology 11/03/21 Mile Reynolds CNP [address] [place] [address] [email or web address] Nurse Practitioner Medical Oncology 11/03/21 documented as of this encounter Additional Source Comments The information contained in this document represents components of the legal health record. It is not the complete legal health record.[facility]
--- OUTSIDE RECORDS SUMMARY | 2025-07-15 10:39 | XMS_ITS | Encounter Summary ---
Author Organization [facility] Address [address] [facility] [address] [place] [address] Phone Care Team Providers Care Finish Rolls Operator Name Role Phone Dell Chiang MD Primary Care Provider [phone] Demond [place] MD Unavailable [phone] FeltTianna ng MD Unavailable [phone] Yasmeen Ward MD Unavailable [email or web address] Meghna Parson MD Primary Care Provi vipin Madalyn [place] MD Primary Care Provide r Meghna Parson MD Primary Care Provi vipin Macho Vincent W DO Unavailable [phone] Camila Nayak CERTIFIED DIALYSIS TECHNICIAN Unavailable [phone] Reynolds SCRAP STRIPPER HAND Unavailable Marian Alicia MD Primary Care Provider [phone] Encounter Details Date Type Department Care Team (Late st Contact Info) Description 08/04/2017 Ancillary Orders [address] [address] Meghna Parson MD [address] [place] [address] [email or web address] Social History Tobacco Use Types Packs/Day Years [...] documented as of this encounter Care Teams Finish Rolls Operator Relationship Specialty Start Date End Date Dell Chiang MD [address] [facility] [address] [place] [address] PCP - General 02/18/15 08/18/17 Meghna Parson MD [email or web address] PCP - General Internal Medicine 08/19/17 11/29/19 Madalyn [place] MD [address] [place] [address] PCP - General 11/30/19 12/30/20 Meghna Parson MD [email or web address] PCP - General Internal Medicine 12/31/20 01/04/22 Marian Alicia MD [address] [place] [address], [address] [place] [address] [email or web address] PCP - General Family Medicine 01/05/22 Demond [place] MD [address] [place] [address] [email or web address] Historical LMR Provider 02/24/15 10/21/21 Tianna Coello MD [address] [place] [address] [email or web address] Historical LMR Provider 02/24/15 10/21/21 Yasmeen Ward MD [email or web address] Historical LMR Provider 02/24/1510/21 Macho Vincent DO [address] [place] [address] [email or web address] Primary Oncologist Hematology and Oncology 09/13/21 Camila Nayak FNP [address] [place] [address] [email or web address] Nurse Practitioner Medical Oncology 11/03/21 Mile Reynolds CNP [address] [place] [address] [email or web address] Nurse Practitioner Medical Oncology 11/03/21 documented as of this encounter Additional Source Comments The information contained in this document represents components of the legal health record. It is not the complete legal health record.[facility]
--- OUTSIDE RECORDS SUMMARY | 2025-07-15 10:39 | XMS_ITS | Encounter Summary ---
Author Organization [facility] Address [address] [facility] [address] [place] [address] Phone Care Team Providers Care Retail Greeting Card Merchandiser Name Role Phone Demond Roger MD Unavailable [phone] FeltTianna ng MD Unavailable [phone] Yasmeen Ward MD Unavailable [email or web address] Meghna Parson MD Primary Care Provi vipin Madalyn Rogers MD Primary Care Provide r Meghna Parson MD Primary Care Provi vipin Macho Vincent DO Unavailable Camila Nayak PYTHON DEVELOPER Unavailable [phone] Mile Reynolds TIN TIE MACHINE OPERATOR AUTOMATIC Unavailable Marian Alicia MD Primary Care Provider [phone] Encounter Details Date Type Department Care Team (Late st Contact Info) Description 03/05/2018 Ancillary Orders Virtual Department 30 [place] [address] London Obregon MD [address] [facility] [address] [place] [address] [email or web address] Dyspnea, unspecified type; Hypoxemia; Cough; Wheeze; Pulmonary [...] documented as of this encounter Care Teams Retail Greeting Card Merchandiser Relationship Specialty Start Date End Date Meghna Parson MD [email or web address] PCP - General Internal Medicine 08/19/17 11/29/19 Madalyn Rogers MD [address] [place] [address] PCP - General 11/30/19 12/30/20 Meghna Parson MD [email or web address] PCP - General Internal Medicine 12/31/20 01/04/22 Marian Alicia MD [address] [place] [address], [address] [place] [address] [email or web address] PCP - General Family Medicine 01/05/22 Demond Roger MD [address] [place] [address] [email or web address] Historical LMR Provider 02/24/15 10/21/21 Tianna Coello MD [address] [place] [address] [email or web address] Historical LMR Provider 02/24/15 10/21/21 Yasmeen Ward MD [email or web address] Historical LMR Provider 02/24/1510/21 Macho Vincent DO [address] [place] [address] [email or web address]. [facility] Primary Oncologist Hematology and Oncology 09/13/21 Camila Nayak FNP [address] [place] [address] [email or web address] Nurse Practitioner Medical Oncology 11/03/21 Mile Reynolds CNP [address] [place] [address] [email or web address] Nurse Practitioner Medical Oncology 11/03/21 documented as of this encounter Additional Source Comments The information contained in this document represents components of the legal health record. It is not the complete legal health record.[facility]
--- OUTSIDE RECORDS SUMMARY | 2025-07-15 10:39 | XMS_ITS | Encounter Summary ---
Author Organization [facility] Address [address] [facility] [address] [place] [address] Phone Care Team Providers Care Clip Bolter And Wrapper Name Role Phone Demond Roger MD Unavailable [phone] FeltTianna ng MD Unavailable [phone] Yasmeen Ward MD Unavailable [email or web address] Meghna Parson MD Primary Care Provi vipin Madalyn Rogers MD Primary Care Provide r Meghna Parson MD Primary Care Provi vipin Macho Vincent DO Unavailable Camila Nayak SHOVEL MECHANIC Unavailable Mile Reynolds GAS PIT WORKER Unavailable Marian Alicia MD Primary Care Provider [phone] Encounter Details Date Type Department Care Team (Late st Contact Info) Description 05/29/2018 Ancillary Orders [facility], X-Ray - [address] [address] SabasLondon MD 264 [facility] [address] [place], [place] [id number] [email or web address] [facility] Pain Social History Tobacco Use Types [...] documented as of this encounter Care Teams Clip Bolter And Wrapper Relationship Specialty Start Date End Date Meghna Parson MD [email or web address] PCP - General Internal Medicine 08/19/17 11/29/19 Madalyn Rogers MD [address] [place] [address] PCP - General 11/30/19 12/30/20 Meghna Parson MD [email or web address] PCP - General Internal Medicine 12/31/20 01/04/22 Marian Alicia MD [address] [place] [address] [email or web address] PCP - General Family Medicine 01/05/22 Demond Roger MD [address] [place] [address] [email or web address] Historical LMR Provider 02/24/15 10/21/21 Tianna Coello MD [address] [place] [address] [email or web address] Historical LMR Provider 02/24/15 10/21/21 Yasmeen Ward MD [email or web address] Historical LMR Provider 02/24/1510/21 Macho Vincent DO [address] [place] [address] [email or web address] Primary Oncologist Hematology and Oncology 09/13/21 Camila Nayak FNP [address] [place] [address] [email or web address] Nurse Practitioner Medical Oncology 11/03/21 Mile Reynolds CNP [address] [place] [address] [email or web address] Nurse Practitioner Medical Oncology 11/03/21 documented as of this encounter Additional Source Comments The information contained in this document represents components of the legal health record. It is not the complete legal health record.[facility]
--- OUTSIDE RECORDS SUMMARY | 2025-07-15 10:39 | XMS_ITS | Encounter Summary ---
Author Organization [facility] Address [address] [place] [address] Phone Care Team Providers Care Shop Supervisor Name Role Phone Aretha Bain NP Primary Care Provider [phone] Encounter Details Date Type Department Care Team (Late Contact Info) Description 08/12/2023 Documentation Only [facility] [address] [place] [phone] Marian Alicia MD [address] [place] [address] Social History Tobacco Use Types Packs/Day Years [...] Visit [facility] [address] [place] [phone] Jamison Avila MD [address] [place] [address] [place] [address] documented as of this encounter Visit Diagnoses Not on filedocumented in this encounter Care Teams Shop Supervisor Relationship Specialty Start Date End Date Aretha Bain NP [address] [place] [address] [address] [place] [address] PCP - General Nurse Practitioner 04/12/25 documented as of this encounter
--- OUTSIDE RECORDS SUMMARY | 2025-07-15 10:39 | XMS_ITS | Encounter Summary ---
Author Organization [facility] Address [address] [facility] [address] [place] [address] Phone Care Team Providers Care Electrician Assistant Name Role Phone Dell Chiang MD Primary Care Provider [phone] Demond Roger MD Unavailable [phone] FeltTianna ng MD Unavailable [phone] Yasmeen Ward MD Unavailable [email or web address] Meghna Parson MD Primary Care Provi vipin Madalyn Rogers MD Primary Care Provide r Meghna Parson MD Primary Care Provi vipin Macho Vincent W DO Unavailable Camila Nayak INSIDE SALES Unavailable Mile Reynolds COMPLETIONS ENGINEER Unavailable Marian Alicia MD Primary Care Provider [phone] Encounter Details Date Type Department Care Team (Late st Contact Info) Description 08/03/2017 Ancillary Orders [facility], X-Ray - [address] [address] Meghna Parson MD 6 [place] [address] [email or web address] Breast screening Social History Tobacco Use Types [...] There are scattered fibroglandular densities. POS - [id number] Narrative 09/06/2017 8:52 AM EST Standard digital [...] and compared with multiple prior studies, most cozfiaby40/24/2016, with utilization of computer-aided detection. The breasts are composed of scattered fibroglandular densities. Thestromal markings are essentially unchanged in overall appearance anddistribution. No dominant spiculated mass, suspicious clusteredmicrocalcifications, or focal zone of pathologic skin thickening orretraction are noted to have arisen in the interim. IMPRESSION: No mammographic evidence of malignancy. BI-RADS CATEGORY: 1 - Negative. DENSITY: There are scattered fibroglandular densities. POS - [id number] Meghna Parson MD IMG MG EXAMS Fin [...] documented as of this encounter Care Teams Electrician Assistant Relationship Specialty Start Date End Date Dell Chiang MD [address] [facility] [address] [place] [address] PCP - General 02/18/15 08/18/17 Meghna Parson MD [email or web address] PCP - General Internal Medicine 08/19/17 11/29/19 Madalyn Rogers MD [address] [place] [address] PCP - General 11/30/19 12/30/20 Meghna Parson MD [email or web address] PCP - General Internal Medicine 12/31/20 01/04/22 Marian Alicia MD [address] [place] [address] 7 [place] [address] [email or web address] PCP - General Family Medicine 01/05/22 Demond Roger MD [address] [place] [address] [email or web address] Historical LMR Provider 02/24/15 10/21/21 Tianna Coello MD [address] [place] [address] [email or web address] Historical LMR Provider 02/24/15 10/21/21 Yasmeen Ward MD [email or web address] Historical LMR Provider 02/24/1510/21 Macho Vincent DO [address] [place] [address] [email or web address] Primary Oncologist Hematology and Oncology 09/13/21 Camila Nayak FNP [address] [place] [address] [email or web address] Nurse Practitioner Medical Oncology 11/03/21 Mile Reynolds CNP [address] [place] [address] [email or web address] Nurse Practitioner Medical Oncology 11/03/21 documented as of this encounter Additional Source Comments The information contained in this document represents components of the legal health record. It is not the complete legal health record.[facility]
--- OUTSIDE RECORDS SUMMARY | 2025-07-15 10:39 | XMS_ITS | Encounter Summary ---
Author Organization [facility] Address [address] [facility] [address] [place] [address] Phone Care Team Providers Care Transplant Coordinator Name Role Phone Demond Roger MD Unavailable [phone] FeltmateTianna MD Unavailable [phone] Yasmeen Ward MD Unavailable [email or web address] Meghna Parson MD Primary Care Provi vipin CarltonMacho gary W DO Unavailable Camila Nayak BUTTON RIVETER Unavailable [phone], Mile CLOTH CARRIER Unavailable Marian Alicia MD Primary Care Provider [phone] Encounter Details Date Type Department Care Team (Late st Contact Info) Description 08/25/2021 Procedure Pass [facility] 30 [place], [place] [id number] Social History Tobacco Use Types Packs/Day Years [...] documented as of this encounter Care Teams Transplant Coordinator Relationship Specialty Start Date End Date Meghna Parson MD [email or web address] PCP - General Internal Medicine 12/31/20 01/04/22 Marian Alicia MD [address] [place] [address] [email or web address] PCP - General Family Medicine 01/05/22 Demond Roger MD [address] [place] [address] [email or web address] Historical LMR Provider 02/24/15 10/21/21 Tianna Coello MD [address] [place] [address] [email or web address] Historical LMR Provider 02/24/15 10/21/21 Yasmeen Ward MD [email or web address] Historical LMR Provider 02/24/1510/21 Macho Vincent DO [address] [place] [address] [email or web address] Primary Oncologist Hematology and Oncology 09/13/21 Camila Nayak FNP [address] [place] [address] [email or web address] Nurse Practitioner Medical Oncology 11/03/21 Mile Reynolds CNP [address] [place] [address] [email or web address] Nurse Practitioner Medical Oncology 11/03/21 documented as of this encounter Additional Source Comments The information contained in this document represents components of the legal health record. It is not the complete legal health record.[facility]
--- OUTSIDE RECORDS SUMMARY | 2025-07-15 10:39 | XMS_ITS | Encounter Summary ---
Author Organization [facility] Address [address] [facility] [address] [place] [address] Phone Care Team Providers Care Polysomnographic Technician Name Role Phone Demond Roger MD Unavailable [phone] FeltTianna ng MD Unavailable [phone] Yasmeen Ward MD Unavailable [email or web address] Meghna Parson MD Primary Care Provi vipin Madalyn Rogers MD Primary Care Provide r Meghna Parson MD Primary Care Provi vipin Macho Vincent DO Unavailable Camila Nayak DIRECTOR OF DIGITAL MARKETING Unavailable Mile Reynolds INVESTOR RELATIONS SPECIALIST Unavailable Marian Alicia MD Primary Care Provider [phone] Encounter Details Date Type Department Care Team (Late st Contact Info) Description 10/28/2018 Transcribe Orders [facility] Specimen Processing 30 [place] [address] Meghna Parson MD [address] [place], [place] [phone] [email or web address] Urinary tract infection without hematuria, site unspecified [...] Specimen Source/ Description URINE CLEAN CATCH URINE [facility] Special Requests None [facility] GRAM STAIN NO ORGANISMS SEEN [facility] Culture/Test 10,000 to 100,000 colony forming units per ml MIXED HAYLEE (3 OR MORE COLONY TYPES) Culture indicates contamination . Please resubmit if necessary.(A) [facility] Report Status 10/30/2018 FINAL [facility] Urine (Urine) 10/28/2018 4:3 7 PM EST 10/28/2018 4:39 PM EST us Meghna Parson MD MICROBIOLOGY - GENE [facility] ORDERABLES Final Result [facility] [address] [place] [address] * (ABNORMAL) Urinalysis (10/28/2018 4:37 PM EST) COLOR Yellow Yellow [facility] CLARITY Clear [facility] GLUCOSE Negative Negative [facility] BILI Negative Negative [facility] KETONES Negative Negative [facility] SPECIFIC GRAVITY 1.010 1.005 - 1.030 [facility] BLOOD Negative Negative [facility] PH 6.0 5.0 - 8.0 [facility] Protein-UA Negative Negative [facility] NITRITE Negative Negative [facility] Leukocyte esterase, ur Trace(A) Negative [facility] Urine (Urine) 10/28/2018 4:3 7 PM EST 10/28/2018 4:39 PM EST Meghna Parson MD URINE ORDERABLES Fi nal Result [facility] [address] [place] [address] documented in this encounter Visit Diagnoses Diagnosis [...] documented as of this encounter Care Teams Polysomnographic Technician Relationship Specialty Start Date End Date Meghna Parson MD [email or web address] PCP - General Internal Medicine 08/19/17 11/29/19 Madalyn Rogers MD [address] [place] [address] PCP - General 11/30/19 12/30/20 Meghna Parson MD [email or web address] PCP - General Internal Medicine 12/31/20 01/04/22 Marian Alicia MD [address] [place] [address] 7 [place] [address] PCP - General Family Medicine 01/05/22 Demond Roger MD [address] [place] [address] [email or web address] Historical LMR Provider 02/24/15 10/21/21 Tianna Coello MD [address] [place] [address] [email or web address] Historical LMR Provider 02/24/15 10/21/21 Yasmeen Ward MD [email or web address] Historical LMR Provider 02/24/1510/21 Macho Vincent DO [address] [place] [address] [email or web address] Primary Oncologist Hematology and Oncology 09/13/21 Camila Nayak FNP [address] [place] [address] Nurse Practitioner Medical Oncology 11/03/21 Mile Reynolds CNP [address] [place] [address] [email or web address] Nurse Practitioner Medical Oncology 11/03/21 documented as of this encounter Additional Source Comments The information contained in this document represents components of the legal health record. It is not the complete legal health record.[facility]
--- OUTSIDE RECORDS SUMMARY | 2025-07-15 10:39 | XMS_ITS | Encounter Summary ---
Author Organization [facility] Address [address] [facility] [address] [place] [address] Phone Care Team Providers Care Cowlman Name Role Phone Demond Roger MD Unavailable [phone] FeltmateTianna MD Unavailable [phone] Yasmeen Ward MD Unavailable [email or web address] Meghna Parson MD Primary Care Provi vipin CarltonMacho gary W DO Unavailable [phone] Camila Nayak MANAGER MARKETING Unavailable Mile Reynolds BUSINESS EDUCATION TEACHER Unavailable Marian Alicia MD Primary Care Provider [phone] Encounter Details Date Type Department Care Team (Late st Contact Info) Description 08/28/2021 Procedure Pass [facility] [address] [place], [place] [id number] Social History Tobacco Use Types Packs/Day Years [...] documented as of this encounter Care Teams Cowlman Relationship Specialty Start Date End Date Meghna Parson MD [email or web address] PCP - General Internal Medicine 12/31/20 01/04/22 Marian Alicia MD [address] [place] [address] 7 [place] [address] [email or web address] PCP - General Family Medicine 01/05/22 Demond Roger MD [address] [place] [address] [email or web address] Historical LMR Provider 02/24/15 10/21/21 Tianna Coello MD [address] [place] [address] [email or web address] Historical LMR Provider 02/24/15 10/21/21 Yasmeen Ward MD [email or web address] Historical LMR Provider 02/24/1510/21 Macho Vincent DO [address] [place] [address] [email or web address]. [email or web address] Primary Oncologist Hematology and Oncology 09/13/21 Camila Nayak FNP [address] [place] [address] [email or web address] Nurse Practitioner Medical Oncology 11/03/21 Mile Reynolds CNP [address] [place] [address] [email or web address] Nurse Practitioner Medical Oncology 11/03/21 documented as of this encounter Additional Source Comments The information contained in this document represents components of the legal health record. It is not the complete legal health record.[facility]
--- OUTSIDE RECORDS SUMMARY | 2025-07-15 10:39 | XMS_ITS | Clinical Summary ---
Author Organization [facility] Address [address] [place] [address] Phone Care Team Providers Care Change Consultant Name Role Phone Aretha Bain NP Primary Care Provider [phone] Allergies Active Allergy Reactions Criticality Noted Date [...] Visit [facility], [address] [place] [address] Jamison Avila MD [address] [place] [address] Health Maintenance Due Date Last Done [...] Discontinued 05/25/2008, 05/05/2008, 05/05/2008 Insurance Medicaid [place] [facility] Care Teams Change Consultant Relationship Specialty Start Date End Date Aretha Bain NP [address] [facility] [address] [place] [phone] PCP - General Nurse Practitioner 04/12/25
--- OUTSIDE RECORDS SUMMARY | 2025-07-15 10:39 | XMS_ITS | Encounter Summary ---
Author Organization [facility] Address [address] [facility] [address] [place] [address] Phone Care Team Providers Care Hvac Lead Name Role Phone Demond Roger MD Unavailable [phone] FeltTianna ng MD Unavailable [phone] Yasmeen Ward MD Unavailable [email or web address] Meghna Parson MD Primary Care Provi vipin Madalyn Rogers MD Primary Care Provide r Meghna Parson MD Primary Care Provi vipin Macho Vincent DO Unavailable [phone] Camila Nayak DIRECTOR DANCE Unavailable Mile Reynolds SUPERVISOR SECURITIES VAULT Unavailable Marian Alicia MD Primary Care Provider [phone] Encounter Details Date Type Department Care Team (Latest Contact Info) Description 05/29/2018 Transcribe Orders [facility] Specimen Processing 30 [place] [address] London Obregon MD [address] [facility] [address] [place], [place] [id number] [email or web address] Urinary tract infection without hematuria, site [...] EDT) Specimen Source/ Description URINE URINE URINE [facility] Special Requests None [facility] GRAM STAIN NO ORGANISMS SEEN [facility] Culture/Test 10,000 to 100,000 colony forming units per ml MIXED HAYLEE (3 OR MORE COLONY TYPES) Culture indicates contamination . Please resubmit if necessary. [facility] Report Status 05/31/2018 FINAL [facility] Urine (Urine) 05/29/2018 4:3 7 PM EDT 05/29/2018 4:39 PM EDT London Obregon MD MICROBIOLOGY - GENERAL ORDERABL ES Final Result [address] [address] * (ABNORMAL) Urinalysis (05/29/2018 4:37 PM EDT) COLOR STRAW(A) Yellow [facility] CLARITY Clear [facility] GLUCOSE Negative Negative [facility] BILI Negative Negative [facility] KETONES Negative Negative [facility] SPECIFIC GRAVITY <1.005 1.005 - 1.030 [facility] BLOOD Negative Negative [facility] PH 5.5 5.0 - 8.0 [facility] Protein-UA Negative Negative [facility] NITRITE Negative Negative [facility] Leukocyte esterase, ur Negative Negative [facility] Urine (Urine) 05/29/2018 4:3 7 PM EDT 05/29/2018 4:39 PM EDT London Obregon MD URINE ORDERABLES Final Result Performing Organization Address City/State/[facility] Co de Phone Number [facility] [address] [place] [address] documented in this encounter Visit Diagnoses Diagnosis [...] documented as of this encounter Care Teams Hvac Lead Relationship Specialty Start Date End Date Meghna Parson MD [email or web address] PCP - General Internal Medicine 08/19/17 11/29/19 Madalyn Rogers MD [address] [place] [address] PCP - General 11/30/19 12/30/20 Meghna Parson MD [email or web address] PCP - General Internal Medicine 12/31/20 01/04/22 Marian Alicia MD [address] [place] [address] 7 [place] [address] PCP - General Family Medicine 01/05/22 Demond Roger MD [address] [place] [address] [email or web address] Historical LMR Provider 02/24/15 10/21/21 Tianna Coello MD [address] [place] [address] [email or web address] Historical LMR Provider 02/24/15 10/21/21 Yasmeen Ward MD [email or web address] Historical LMR Provider 02/24/1510/21 Macho Vincent DO [address] [place] [address] [email or web address] Primary Oncologist Hematology and Oncology 09/13/21 Camila Nayak FNP [address] [place] [address] Nurse Practitioner Medical Oncology 11/03/21 Mile Reynolds CNP [address] [place] [address] [email or web address] Nurse Practitioner Medical Oncology 11/03/21 documented as of this encounter Additional Source Comments The information contained in this document represents components of the legal health record. It is not the complete legal health record.[facility]
--- OUTSIDE RECORDS SUMMARY | 2025-07-15 10:39 | XMS_ITS | Encounter Summary ---
Author Organization [facility] Address [address] [facility] [address] [place] [address] Phone Care Team Providers Care Activity Assistant Name Role Phone Demond Roger MD Unavailable [phone] FeltmateTianna MD Unavailable [phone] Yasmeen Ward MD Unavailable [email or web address] Meghna Parson MD Primary Care Provi vipin CarltonMacho gary W DO Unavailable Camila Nayak ON SITE NURSE Unavailable [phone] [employer]rist[employer] Unavailable Marian Alicia MD Primary Care Provider [phone] Encounter Details Date Type Department Care Team (Late st Contact Info) Description 10/04/2021 Transcribe Orders Virtual Department 30 [place] [address] Meghna Parson MD [address] [place], [place] [id number] [email or web address] Low back pain, unspecified back pain laterality, [...] documented as of this encounter Care Teams Activity Assistant Relationship Specialty Start Date End Date Meghna Parson MD [email or web address] PCP - General Internal Medicine 12/31/20 01/04/22 Marian Alicia MD [address] [place] [address], [address] [place] [address] [email or web address] PCP - General Family Medicine 01/05/22 Demond Roger MD [address] [place] [address] [email or web address] Historical LMR Provider 02/24/15 10/21/21 Tianna Coello MD [address] [place] [address] [email or web address] Historical LMR Provider 02/24/15 10/21/21 Yasmeen Ward MD [email or web address] Historical LMR Provider 02/24/1510/21 Macho Vincent DO [address] [place] [address] [email or web address] Primary Oncologist Hematology and Oncology 09/13/21 Camila Nayak FNP [address] [place] [address] [email or web address] Nurse Practitioner Medical Oncology 11/03/21 Mile Reynolds CNP [address] [place] [address] [email or web address] Nurse Practitioner Medical Oncology 11/03/21 documented as of this encounter Additional Source Comments The information contained in this document represents components of the legal health record. It is not the complete legal health record.[facility]
--- OUTSIDE RECORDS SUMMARY | 2025-07-15 10:39 | XMS_ITS | Encounter Summary ---
Author Organization [facility] Address [address] [facility] [address] [place] [address] Phone Care Team Providers Care Zinc Etcher Name Role Phone Demond Roger MD Unavailable [phone] FeltTianna ng MD Unavailable [phone] Yasmeen Ward MD Unavailable [email or web address] Meghna Parson MD Primary Care Provi vipin Madalyn Rogers MD Primary Care Provide r Meghna Parson MD Primary Care Provi vipin Macho Vincent DO Unavailable [phone] Camila Nayak CHIEF HYDROELECTRIC STATION OPERATOR Unavailable Mile Reynolds LINE ORDERING CLINICIAN Unavailable Marian Alicia MD Primary Care Provider [phone] Encounter Details Date Type Department Care Team (Late st Contact Info) Description 11/12/2019 Transcribe Orders Virtual Department 30 [place] [address] Meghna Parson MD [address] [place], [place] [id number] [email or web address] Dysuria (Primary Dx) Social History Tobacco Use [...] Special Requests None 11/12/2019 6:01 PM EST [facility] GRAM STAIN NO ORGANISMS SEEN 11/13/2019 9:06 AM EST [facility] Urine Culture 10,000 to 100,000 colony forming units per mL MIXED HAYLEE (3 OR MORE COLONY TYPES) Culture indicates contamination . Please resubmit if necessary.(A) 11/14/2019 10:46 AM EST [facility] Urine (Urine) 11/12/2019 4:3 0 PM EST 11/12/2019 6:00 PM EST us Meghna Parson MD MICROBIOLOGY - GENE [facility] ORDERABLES Final Result [address] [address] * (ABNORMAL) URINALYSIS WITH SEDIMENT (11/12/2019 4:30 PM EST) WBC 0-4(A) NONE SEEN /hpf [facility] RBC NONE SEEN NONE SEEN /hpf [facility] URINE EPITHELIAL 0-4(A) NONE SEEN [facility] MUCUS Trace(A) NONE SEEN /hpf [facility] BACTERIA NONE SEEN NONE SEEN /hpf [facility] COLOR Yellow Yellow [facility] CLARITY Clear [facility] GLUCOSE Negative Negative [facility] BILI Negative Negative [facility] KETONES Negative Negative [facility] SPECIFIC GRAVITY 1.015 1.005 - 1.030 [facility] BLOOD Negative Negative [facility] PH 5.5 5.0 - 8.0 [facility] Protein-UA Negative Negative [facility] NITRITE Negative Negative [facility] Leukocyte esterase, ur Negative Negative [facility] Urine (Urine) 11/12/2019 4:3 0 PM EST 11/12/2019 6:09 PM EST us Meghna Parson MD URINE ORDERABLES Fi nal Result [facility] [address] [place] [address] documented in this encounter Visit Diagnoses Diagnosis Dysuria- Primary documented in this encounter Additional Health Concerns Infection Onset Date Last Indicated Resolved Time CoV-Exposed Comment:Recent close contact documented in the COVID-19 PCR/PRO order 09/25/2021 10/03/2021 10/10/2021 1:[address] CoV-Presumed 10/09/2022 10/09/2022 10/30/2022 1:21 AM EST CoV-Risk 03/01/2023 03/01/2023 03/12/2023 1:22 AM EDT documented as of this encounter Care Teams Zinc Etcher Relationship Specialty Start Date End Date Meghna Parson MD [email or web address] PCP - General Internal Medicine 08/19/17 11/29/19 Madalyn Rogers MD [address] [place] [address] PCP - General 11/30/19 12/30/20 Meghna Parson MD [email or web address] PCP - General Internal Medicine 12/31/20 01/04/22 Marian Alicia MD [address] [place] [address], [address] [place] [address] [email or web address] PCP - General Family Medicine 01/05/22 Demond Roger MD [address] [place] [address] [email or web address] Historical LMR Provider 02/24/15 10/21/21 Tianna Coello MD [address] [place] [address] [email or web address] Historical LMR Provider 02/24/15 10/21/21 Yasmeen Ward MD [email or web address] Historical LMR Provider 02/24/1510/21 Macho Vincent DO [address] [place] [address] [email or web address] Primary Oncologist Hematology and Oncology 09/13/21 Camila Nayak FNP [address] [place] [address] [email or web address] Nurse Practitioner Medical Oncology 11/03/21 Mile Reynolds CNP [address] [place] [address] [email or web address] Nurse Practitioner Medical Oncology 11/03/21 documented as of this encounter Additional Source Comments The information contained in this document represents components of the legal health record. It is not the complete legal health record.[facility]
--- OUTSIDE RECORDS SUMMARY | 2025-07-15 10:39 | XMS_ITS | Encounter Summary ---
Author Organization [facility] Address [address] [facility] [address] [place] [address] Phone Care Team Providers Care Steamtable Attendant Railroad Name Role Phone Demond Roger MD Unavailable [phone] FeltTianna ng MD Unavailable [phone] Yasmeen Ward MD Unavailable [email or web address] Meghna Parson MD Primary Care Provi vipin Madalyn Rogers MD Primary Care Provide r Meghna Parson MD Primary Care Provi vipin Macho Vincent DO Unavailable Camila Nayak VETERINARY RADIOLOGIST Unavailable Mile Reynolds PIE BOTTOMER Unavailable Marian Alicia MD Primary Care Provider [phone] Encounter Details Date Type Department Care Team (Late st Contact Info) Description 09/18/2019 Ancillary Orders [facility], X-Ray - [address] [address] Georgie Olsen MD [address] [place] [phone] [email or web address] Pneumonia due to infectious [...] documented as of this encounter Care Teams Steamtable Attendant Railroad Relationship Specialty Start Date End Date Meghna Parson MD [email or web address] PCP - General Internal Medicine 08/19/17 11/29/19 Madalyn Rogers MD [address] [place] [address] PCP - General 11/30/19 12/30/20 Meghna Parson MD [email or web address] PCP - General Internal Medicine 12/31/20 01/04/22 Marian Alicia MD [address] [place] [address] 7 [place] [address] [email or web address] PCP - General Family Medicine 01/05/22 Demond Roger MD [address] [place] [address] [email or web address] Historical LMR Provider 02/24/15 10/21/21 Tianna Coello MD [address] [place] [address] [email or web address] Historical LMR Provider 02/24/15 10/21/21 Yasmeen Wrad MD [email or web address] Historical LMR Provider 02/24/1510/21 Macho Vincent DO [address] [place] [address] [email or web address] Primary Oncologist Hematology and Oncology 09/13/21 Camila Nayak FNP [address] [place] [address] [email or web address] Nurse Practitioner Medical Oncology 11/03/21 Mile Reynolds CNP [address] [place] [address] [email or web address] Nurse Practitioner Medical Oncology 11/03/21 documented as of this encounter Additional Source Comments The information contained in this document represents components of the legal health record. It is not the complete legal health record.[facility]
--- OUTSIDE RECORDS SUMMARY | 2025-07-15 10:39 | XMS_ITS | Encounter Summary ---
Author Organization [facility] Address [address] [facility] [address] [place] [address] Phone Care Team Providers Care Type Copy Examiner Name Role Phone Demond Roger MD Unavailable [phone] FeltTianna ng MD Unavailable [phone] Yasmeen Ward MD Unavailable [email or web address] Meghna Parson MD Primary Care Provi vipin Madalyn Rogers MD Primary Care Provide r Meghna Parson MD Primary Care Provi vipin Macho Vincent DO Unavailable [phone] Camila Nayak COMMERCIAL ACCOUNTANT Unavailable Mile Reynolds CHILD WELFARE DIRECTOR Unavailable Marian Alicia MD Primary Care Provider [phone] Encounter Details Date Type Department Care Team (Late st Contact Info) Description 04/17/2018 Ancillary Orders [facility], X-Ray - [address] [address] Meghna Parson MD [address] [place], [place] [phone] [email or web address]; [email or web address] Social History Tobacco Use Types [...] documented as of this encounter Care Teams Type Copy Examiner Relationship Specialty Start Date End Date Meghna Parson MD [email or web address] PCP - General Internal Medicine 08/19/17 11/29/19 Madalyn Rogers MD [address] [place] [address] PCP - General 11/30/19 12/30/20 Meghna Parson MD [email or web address] PCP - General Internal Medicine 12/31/20 01/04/22 Marian Alicia MD [address] [place] [address] [email or web address] PCP - General Family Medicine 01/05/22 Demond Roger MD [address] [place] [address] [email or web address] Historical LMR Provider 02/24/15 10/21/21 Tianna Coello MD [address] [place] [address] [email or web address] Historical LMR Provider 02/24/15 10/21/21 Yasmeen Ward MD [email or web address] Historical LMR Provider 02/24/1510/21 Macho Vincent DO [address] [place] [address] [email or web address] Primary Oncologist Hematology and Oncology 09/13/21 Camila Nayak FNP [address] [place] [address] [email or web address] Nurse Practitioner Medical Oncology 11/03/21 Mile Reynolds CNP [address] [place] [address] [email or web address] Nurse Practitioner Medical Oncology 11/03/21 documented as of this encounter Additional Source Comments The information contained in this document represents components of the legal health record. It is not the complete legal health record.[facility]
--- OUTSIDE RECORDS SUMMARY | 2025-07-15 10:39 | XMS_ITS | Encounter Summary ---
Author Organization [facility] Address [address] [facility] [address] [place] [address] Phone Care Team Providers Care Sales Planning Coordinator Name Role Phone Demond Roger MD Unavailable [phone] FeltTianna ng MD Unavailable [phone] Yasmeen Ward MD Unavailable [email or web address] Meghna Parson MD Primary Care Provi vipin Madalyn Rogers MD Primary Care Provide r Meghna Parson MD Primary Care Provi vipin Macho Vincent DO Unavailable Camila Nayak FRETTED STRING INSTRUMENT REPAIRER Unavailable [phone] Mile Reynolds DUSTLESS OPERATOR Unavailable Marian Alicia MD Primary Care Provider [phone] Encounter Details Date Type Department Care Team (Late st Contact Info) Description 07/31/2018 Ancillary Orders Virtual Department 30 [place] [address] Meghna Parson MD [address] [place], [place] [phone] [email or web address] Breast screening Social History Tobacco Use [...] There are scattered fibroglandular densities. POS - [id number] Narrative 09/05/2018 9:29 AM EST Bilateral mammography [...] There are scattered fibroglandular densities. POS - [id number] Meghna Parson MD IMG MG EXAMS Fin [...] documented as of this encounter Care Teams Sales Planning Coordinator Relationship Specialty Start Date End Date Meghna Parson MD [email or web address] PCP - General Internal Medicine 08/19/17 11/29/19 Madalyn Rogers MD [address] [place] [address] PCP - General 11/30/19 12/30/20 Meghna Parson MD [email or web address] PCP - General Internal Medicine 12/31/20 01/04/22 Marian Alicia MD [address] [place] [address], [address] [place] [address] PCP - General Family Medicine 01/05/22 Demond Roger MD [address] [place] [address] [email or web address] Chao LMR Provider 02/24/15 10/21/21 Tianna Coello MD [address] [place] [address] [email or web address] Historical LMR Provider 02/24/15 10/21/21 Yasmeen Ward MD [email or web address] Historical LMR Provider 02/24/1510/21 Macho Vincent DO [address] [place] [address] [email or web address] Primary Oncologist Hematology and Oncology 09/13/21 Camila Nayak FNP [address] [place] [address] [email or web address] Nurse Practitioner Medical Oncology 11/03/21 Mile Reynolds CNP [address] [place] [address] [email or web address] Nurse Practitioner Medical Oncology 11/03/21 documented as of this encounter Additional Source Comments The information contained in this document represents components of the legal health record. It is not the complete legal health record.[facility]
--- OUTSIDE RECORDS SUMMARY | 2025-07-15 10:39 | XMS_ITS | Encounter Summary ---
Author Organization [facility], Address [address] [place] [address] Phone Care Team Providers Care Mill Labor Supervisor Name Role Phone Aretha Bain WATER MANAGER Primary Care Provider [phone] Encounter Details Date Type Department Care Team (Late st Contact Info) Description 08/12/2023 Documentation Only [facility] [address] [place] [phone] Marian Alicia MD [address] [place] [address] 7 [place] [address] Social History Tobacco Use Types Packs/Day Years [...] Visit [facility], [address] [place] [phone] Jamison Avila MD [address] [place] [phone] documented as of this encounter Visit Diagnoses Not on filedocumented in this encounter Care Teams Mill Labor Supervisor Relationship Specialty Start Date End Date Aretha Bain NP [address] [facility] 1 [place] [address] PCP - General Nurse Practitioner 04/12/25 documented as of this encounter
--- OUTSIDE RECORDS SUMMARY | 2025-07-15 10:39 | XMS_ITS | Encounter Summary ---
Author Organization [facility] Address [address] [facility] [address] [place] [address] Phone Care Team Providers Care Chair Trimmer Name Role Phone Demond Roger MD Unavailable [phone] FeltmateTianna MD Unavailable [phone] Yasmeen Ward MD Unavailable [email or web address] Madalyn Rogers MD Primary Care Provide r Meghna Parson MD Primary Care Provi vipin Macho Vincent W DO Unavailable [phone] Camila Nayak AIRPLANE DISPATCH CLERK Unavailable Mile Reynolds IRISH MOSS GATHERER Unavailable Marian Alicia MD Primary Care Provider [phone] Encounter Details Date Type Department Care Team (Late st Contact Info) Description 07/14/2020 Procedure Pass [facility], [address] [phone] Social History Tobacco Use Types Packs/Day Years [...] documented as of this encounter Care Teams Chair Trimmer Relationship Specialty Start Date End Date Madalyn Rogers MD [address] [place] [address] PCP - General 11/30/19 12/30/20 Meghna Parson MD [address] [place] [address] [email or web address] PCP - General Internal Medicine 12/31/20 01/04/22 Marian Alicia MD [address] [place] [address], [facility] [address] [place] [address] [email or web address] PCP - General Family Medicine 01/05/22 Demond Roger MD [address] [place] [address] [email or web address] Historical LMR Provider 02/24/15 10/21/21 Tianna Coello MD [address] [place] [address] [email or web address] Historical LMR Provider 02/24/15 10/21/21 Yasmeen Ward MD [email or web address] Historical LMR Provider 02/24/1510/21 Macho Vincent DO [address] [place] [address] [email or web address] Primary Oncologist Hematology and Oncology 09/13/21 Camila Nayak FNP [address] [place] [address] [email or web address] Nurse Practitioner Medical Oncology 11/03/21 Mile Reynolds CNP [address] [place] [address] [email or web address] Nurse Practitioner Medical Oncology 11/03/21 documented as of this encounter Additional Source Comments The information contained in this document represents components of the legal health record. It is not the complete legal health record.[facility]
--- OUTSIDE RECORDS SUMMARY | 2025-07-15 10:39 | XMS_ITS | Encounter Summary ---
Author Organization [facility] Address [address] [facility] [address] [place] [address] Phone Care Team Providers Care Computer Aided Design Technician Name Role Phone Demond Roger MD Unavailable [phone] FeltmateTianna MD Unavailable [phone] Yasmeen Ward MD Unavailable [email or web address] Meghna Parson MD Primary Care Provi ivpin CarltonMacho gary W DO Unavailable [phone] Camila Nayak SILO FILLER Unavailable GailTristanen WAREHOUSE TECHNICIAN Unavailable Marian Alicia MD Primary Care Provider [phone] Encounter Details Date Type Department Care Team (Late st Contact Info) Description 10/10/2021 Ancillary Orders Virtual Department 30 [place] [address] Meghna Parson MD [address] [place], [place] [id number] [email or web address] Low back pain, unspecified back pain laterality, [...] documented as of this encounter Care Teams Computer Aided Design Technician Relationship Specialty Start Date End Date Meghna Parson MD [email or web address] PCP - General Internal Medicine 12/31/20 01/04/22 Marian Alicia MD [address] [place] [address] 7 [place] [address] [email or web address] PCP - General Family Medicine 01/05/22 Demond Roger MD [address] [place] [address] [email or web address] Historical LMR Provider 02/24/15 10/21/21 Tianna Coello MD [address] [place] [address] [email or web address] Historical LMR Provider 02/24/15 10/21/21 Yasmeen Ward MD [email or web address] Historical LMR Provider 02/24/1510/21 Macho Vincent DO 30 [place] [address] [email or web address] Primary Oncologist Hematology and Oncology 09/13/21 Camila Nayak FNP [address] [place] [address] [email or web address] Nurse Practitioner Medical Oncology 11/03/21 Mile Reynolds CNP [address] [place] [address] [email or web address] Nurse Practitioner Medical Oncology 11/03/21 documented as of this encounter Additional Source Comments The information contained in this document represents components of the legal health record. It is not the complete legal health record.[facility]
--- OUTSIDE RECORDS SUMMARY | 2025-07-15 10:39 | XMS_ITS | Encounter Summary ---
Author Organization [facility] Address [address] [employer] [facility] [address] [place] [address] Phone Care Team Providers Care Proof Inspector Name Role Phone Demond Roger MD Unavailable [phone] FeltTianna ng MD Unavailable [phone] Yasmeen Ward MD Unavailable [email or web address] Meghna Parson MD Primary Care Provi vipin Madalyn Rogers MD Primary Care Provide r Meghna Parson MD Primary Care Provi vipin Macho Vincent DO Unavailable [phone] Camila Nayak CENTRIFUGE OPERATOR Unavailable Mile Reynolds DRAFTER AUTOMOTIVE DESIGN Unavailable Marian Alicia MD Primary Care Provider [phone] Encounter Details Date Type Department Care Team (Latest Contact Info) Description 07/21/2018 Transcribe Orders [facility] Laboratory 30 [place] [address] Steven Trinidad, DO [address] [facility], [address] [place] [address] [email or web address] Hypogammaglobulinemia (Primary Dx) Social History Tobacco [...] IgA, IgM (07/21/2018 10:41 AM EDT) Pathologist [facility] IMMUNOGLOBULIN G 478(L) 700 - 1,600 mg/dL [facility] IgA 67(L) 70 - 400 mg/dL [facility] IMMUNOGLOBULIN M 43 40 - 230 mg/dL [facility] Blood 07/21/2018 10:4 1 AM EDT 07/21/2018 10:52 AM EDT us Steven Trinidad DO LAB BLOOD ORDERABLES Final R esult [facility] 30 [place] [address] * (ABNORMAL) IgG subclasses (07/21/2018 10:41 AM EDT) Pathologist [facility] IGG 1 217(L) 341 - 894 mg/dL [facility] DPT OF LAB MED AND PAT+ IGG 2 181 171 - 632 mg/dl [facility] OF LAB MED AND PAT+ IGG 3 85.1 18.4 - 106.0 mg/dl [facility] DPT OF LAB MED AND PAT+ IGG 4 10.7 2.4 - 121.0 mg/dl [facility] DPT OF LAB MED AND PAT+ TOTAL IGG 463(L) 767 - 1,590 mg/dl [facility] DPT OF LAB MED AND PAT+ Blood 07/21/2018 10:4 1 AM EDT 07/21/2018 10:51 AM EDT Steven Trinidad DO LAB BLOOD ORDERABLES Final R esult [facility] DPT OF LAB MED AND PAT+ [address] [place] [address] * (ABNORMAL) Monoclonal protein study, serum (07/21/2018 10:41 AM EDT) TOTAL PROTEIN 5.9(L) 6.3 - 7.9 g/dL [facility] DPT OF LAB MED AND PAT+ ALBUMIN 3.2(L) 3.4 - 4.7 g/dL [facility] DPT OF LAB MED AND PAT+ ALPHA-1 GLOBULIN 0.2 0.1 - 0.3 g/dL [facility] DPT OF LAB MED AND PAT+ ALPHA-2 GLOBULIN 1.0 0.6 - 1.0 g/dL [facility] DPT OF LAB MED AND PAT+ BETA-GLOBULIN 0.9 0.7 - 1.2 g/dL [facility] DPT OF LAB MED AND PAT+ GAMMA-GLOBULIN 0.5(L) 0.6 - 1.6 g/dL [facility] DPT OF LAB MED AND PAT+ A/G RATIO 1.19 [facility] MED AND PAT+ M SPIKE Test component not applicable or not reported. not reported [facility] OF LAB MED AND PAT+ M SPIKE Test component not applicable or not reported. not reported [facility] DPT OF LAB MED AND PAT+ IMPRESSION SEE NOTE [facility] D[facility] OF LAB MED AND PAT+ Comment: (NOTE) Hypogammaglobulinemia See Immunofixation. IMMUNOFIXATION No monoclonal protein detected. [facility] DPT OF LAB MED AND PAT+ Blood 07/21/2018 10:4 1 AM EDT 07/21/2018 10:51 AM EDT Steven Trinidad DO LAB BLOOD ORDERABLES Final R esult [facility] DPT OF LAB MED AND PAT+ [address] [place] [address] * Tetanus antitoxoid antibody, IgG (07/21/2018 10:41 AM EDT) Tetanus Ab, IgG Positive [facility] LAB MED/PATH [facility] Comment: (NOTE) REFERENCE VALUE Vaccinated: Positive (>= 0.01 IU/mL) Unvaccinated: Negative (< 0.01 IU/mL) Tetanus IgG Value 1.97 IU/mL [facility] DEP LAB MED/PATH [facility] Comment: (NOTE) ADDITIONAL INFORMATION This test was developed and its performance characteristics determined by [facility] in a manner consistent with CLIA requirements. This test has not been cleared or approved by the U.S. Food and Drug Administration. Blood 07/21/2018 10:4 1 AM EDT 07/21/2018 10:51 AM EDT Steven Trinidad LAB BLOOD ORDERABLES Final R esult [facility] MED[facility] [address] [place] [address] * (ABNORMAL) Comprehensive metabolic panel (07/21/2018 10:41 AM EDT) Pathologist [facility] SODIUM 145 133 - 146 mmol/L [facility] POTASSIUM 4.0 3.3 - 5.1 mmol/L [facility] CHLORIDE 106 96 - 108 mmol/L [facility] CO2 28 21 - 35 mmol/L [facility] BUN 14 6 - 19 mg/dL [facility] CREATININE 1.00 0.5 - 1.5 mg/dL [facility] GLUCOSE 84 70 - 99 mg/dL [facility] ALBUMIN 4.1 3.9 - 4.8 g/dL [facility] TOTAL PROTEIN 6.1(L) 6.5 - 8.0 g/dL [facility] CALCIUM 9.6 8.4 - 10.3 mg/dL [facility] ALKALINE PHOSPHATASE 70 39 - 117 U/L [facility] TOTAL BILIRUBIN 0.3 0.0 - 1.2 mg/dL [facility] AST 21 0 - 37 U/L [facility] ALT 14 0 - 40 U/L [facility] GLOBULIN 2.0 1 - 4.8 g/dL [facility] EGFR 65 >59 mL/min/1.7 3m2 [facility] Comment:If patient is black, multiply result by 1.159. Estimated glomerular filtration rate calculated using the CKD-EPI equation. ANION GAP 15 10 - 20 mmol/L [facility] Blood 07/21/2018 10:4 1 AM EDT 07/21/2018 10:52 AM EDT us Steven Trinidad DO LAB BLOOD ORDERABLES Final R esult [facility] [address] [place] [address] * (ABNORMAL) CBC and differential (07/21/2018 10:41 AM EDT) WBC 7.14 3.40 - 11.20 K/uL [facility] RBC 4.86(H) 3.80 - 4.80 M/uL [facility] HGB 14.6 12.0 - 15.0 g/dL [facility] HCT 43.4 36.0 - 46.0 % [facility] PLT 259 130 - 400 K/uL [facility] MCV 89.3 79.0 - 98.0 fL [facility] MCH 30.0 27.0 - 34.8 pg [facility] MCHC 33.6 31.5 - 36.0 g/dL [facility] RDW 13.0 10.8 - 14.6 % [facility] MPV 10.0 9.4 - 12.4 fl [facility] NRBC 0.00 /100 WBCs [facility] ABSOLUTE NRBC 0.00 K/uL [facility] DIFF METHOD Auto [facility] NEUTS 58.4 45.30 - 77.70 % [facility] LYMPHS 32.5 12.30 - 39.70 % [facility] MONOS 6.7 4.10 - 12.80 % [facility] EOS 1.5 0 - 7.2 % [facility] BASOS 0.3 0 - 2.80 % [facility] Granulocytes, immature (%) 0.6 0.0 - 0.9 % [facility] ABSOLUTE NEUTS 4.17 1.40 - 7.70 K/uL [facility] ABSOLUTE LYMPHS 2.32 0.60 - 3.20 K/uL [facility] ABSOLUTE MONOS 0.48 0.11 - 0.59 K/uL [facility] ABSOLUTE EOS 0.11 0.01 - 0.50 K/uL [facility] ABSOLUTE BASOS 0.02 0.00 - 0.08 K/uL [facility] Granulocytes, immature 0.04 0.00 - 0.05 K/uL [facility] Blood 07/21/2018 10:4 1 AM EDT 07/21/2018 10:52 AM EDT Steven Trinidad DO LAB BLOOD ORDERABLES Final R esult Performing Organization Address City/State/[facility] Co de Phone Number [address] [address] documented in this encounter Visit Diagnoses Diagnosis Hypogammaglobulinemia- Primary Unspecified hypogammaglobulinemia documented in this encounter Additional Health Concerns Infection Onset Date Last Indicated Resolved Time CoV-Exposed Comment:Recent close contact documented in the COVID-19 PCR/PRO order 09/25/2021 10/03/2021 10/10/2021 1:[address] CoV-Presumed 10/09/2022 10/09/2022 10/30/2022 1:21 AM EST CoV-Risk 03/01/2023 03/01/2023 03/12/2023 1:22 AM EDT documented as of this encounter Care Teams Proof Inspector Relationship Specialty Start Date End Date Meghna Parson MD [email or web address] PCP - General Internal Medicine 08/19/17 11/29/19 Madalyn Rogers MD [address] [place] [address] PCP - General 11/30/19 12/30/20 Meghna Parson MD [email or web address] PCP - General Internal Medicine 12/31/20 01/04/22 Marian Alicia MD [address] [place] [address] [address] [place] [address] [email or web address] PCP - General Family Medicine 01/05/22 Demond Roger MD [address] [place] [address] [email or web address] Historical LMR Provider 02/24/15 10/21/21 Tianna Coello MD [address] [place] [address] [email or web address] Historical LMR Provider 02/24/15 10/21/21 Yasmeen Ward MD [email or web address] Historical LMR Provider 02/24/1510/21 Macho Vincent DO [address] [place] [address] [email or web address]. [facility] Primary Oncologist Hematology and Oncology 09/13/21 Camila Nayak FNP [address] [place] [address] [email or web address] Nurse Practitioner Medical Oncology 11/03/21 Mile Reynolds CNP [address] [place] [address] [email or web address] Nurse Practitioner Medical Oncology 11/03/21 documented as of this encounter Additional Source Comments The information contained in this document represents components of the legal health record. It is not the complete legal health record.[facility]
--- OUTSIDE RECORDS SUMMARY | 2025-07-15 10:39 | XMS_ITS | Encounter Summary ---
Author Organization [facility] Address [address] [facility] [address] [place] [address] Phone Care Team Providers Care Paint Preparer Name Role Phone Demond Roger MD Unavailable [phone] FeltmateTianna MD Unavailable [phone] Yasmeen Ward MD Unavailable [email or web address] Madalyn Rogers MD Primary Care Provide r Meghna Parson MD Primary Care Provi vipin CarltonMacho gary W DO Unavailable Camila Nayak DOT NET DEVELOPER Unavailable [employer] RECEPTIONIST DOCTOR'S OFFICE Unavailable Marian Alicia MD Primary Care Provider [phone] Encounter Details Date Type Department Care Team (Late st Contact Info) Description 07/14/2020 Ancillary Orders Virtual Department 30 [place] [address] Meghna Parson MD [address] [place], [place] [id number] [email or web address] Breast screening Social History Tobacco Use Types [...] and compared with multiple prior studies, most ipptwyqf15/25/2019, with utilization of computer-aided detection. The breasts [...] documented as of this encounter Care Teams Paint Preparer Relationship Specialty Start Date End Date Madalyn Rogers MD [address] [place] [address] PCP - General 11/30/19 12/30/20 Meghna Parson MD [address] [place] [address] [email or web address] PCP - General Internal Medicine 12/31/20 01/04/22 Marian Alicia MD [address] [place] [address], [facility] 7 [place] [address] [email or web address] PCP - General Family Medicine 01/05/22 Demond Roger MD [address] [place] [address] [email or web address] Historical LMR Provider 02/24/15 10/21/21 Tianna Coello MD [address] [place] [address] [email or web address] Historical LMR Provider 02/24/15 10/21/21 Yasmeen Ward MD [email or web address] Historical LMR Provider 02/24/1510/21 Macho Vincent DO [address] [place] [address] [email or web address] Primary Oncologist Hematology and Oncology 09/13/21 Camila Nayak FNP [address] [place] [address] [email or web address] Nurse Practitioner Medical Oncology 11/03/21 Mile Reynolds CNP [address] [place] [address] [email or web address] Nurse Practitioner Medical Oncology 11/03/21 documented as of this encounter Additional Source Comments The information contained in this document represents components of the legal health record. It is not the complete legal health record.[facility]
--- OUTSIDE RECORDS SUMMARY | 2025-07-15 10:39 | XMS_ITS | Encounter Summary ---
Author Organization [facility] Address [address] [facility] [address] [place] [address] Phone Care Team Providers Care Rotary Shear Operator Name Role Phone Demond Roger MD Unavailable [phone] FeltmateTianna MD Unavailable [phone] Yasmeen Ward MD Unavailable [email or web address] Meghna Parson MD Primary Care Provi vipin CarltonMacho gary W DO Unavailable Camila Nayak WATERPROOFING SUPERVISOR Unavailable Pack, Mile CURING OVEN ATTENDANT Unavailable Marian Alicia MD Primary Care Provider [phone] Encounter Details Date Type Department Care Team (Late st Contact Info) Description 10/03/2021 Transcribe Orders Virtual Department 30 [place] [address] Meghna Parson MD [address] [place], [place] [id number] [email or web address] Exposure to COVID-19 virus (Primary Dx) Social [...] be available within 24 to 48 hrs. [facility] Symptomatic? NO [facility] Other 10/04/2021 12:5 8 PM EST 10/04/2021 2:19 PM EST us Meghna Parson MD BODY FLUIDS AND STO OLS ORDERABLES Final Result Performing Organization Address City/State/[facility] Co de Phone Number [address] [address] [facility] [address] [place] [address] documented in this encounter Visit Diagnoses Diagnosis [...] documented as of this encounter Care Teams Rotary Shear Operator Relationship Specialty Start Date End Date Meghna Parson MD [email or web address] PCP - General Internal Medicine 12/31/20 01/04/22 Marian Alicia MD [address] [place] [address], [address] [place] [address] [email or web address] PCP - General Family Medicine 01/05/22 Demond Roger MD [address] [place] [address] [email or web address] Historical LMR Provider 02/24/15 10/21/21 Tianna Coello MD [address] [place] [address] [email or web address] Historical LMR Provider 02/24/15 10/21/21 Yasmeen Ward MD [email or web address] Historical LMR Provider 02/24/1510/21 Macho Vincent DO [address] [place] [address] [email or web address] Primary Oncologist Hematology and Oncology 09/13/21 Camila Nayak FNP [address] [place] [address] [email or web address] Nurse Practitioner Medical Oncology 11/03/21 Mile Reynolds CNP [address] [place] [address] [email or web address] Nurse Practitioner Medical Oncology 11/03/21 documented as of this encounter Additional Source Comments The information contained in this document represents components of the legal health record. It is not the complete legal health record.[facility]
--- OUTSIDE RECORDS SUMMARY | 2025-07-15 10:39 | XMS_ITS | Encounter Summary ---
Author Organization [facility] Address [address] [facility] [address] [place] [address] Phone Care Team Providers Care Global Account Manager Name Role Phone Dell Chiang MD Primary Care Provider [phone] Demond Roger MD Unavailable [phone] FeltTianna ng MD Unavailable [phone] Yasmeen Ward MD Unavailable [email or web address] Meghna Parson MD Primary Care Provi vipin Madalyn Rogers MD Primary Care Provide r Meghna Parson MD Primary Care Provi vipin Macho Vincent W DO Unavailable [phone] Camila Nayak PERSONAL FINANCIAL REPRESENTATIVE Unavailable [phone] Mile Reynolds CERTIFIED MEDICAL CODER Unavailable Marian Alicia MD Primary Care Provider [phone] Encounter Details Date Type Department Care Team (Late st Contact Info) Description 08/04/2017 Ancillary Orders [address] [address] Meghna Parson MD [address] [place] [address] [email or web address] Social History Tobacco Use Types Packs/Day Years [...] documented as of this encounter Care Teams Global Account Manager Relationship Specialty Start Date End Date Dell Chiang MD [address] [facility] [address] [place] [address] PCP - General 02/18/15 08/18/17 Meghna Parson MD [email or web address] PCP - General Internal Medicine 08/19/17 11/29/19 Madalyn Rogers MD [address] [place] [address] PCP - General 11/30/19 12/30/20 Meghna Parson MD [email or web address] PCP - General Internal Medicine 12/31/20 01/04/22 Marian Alicia MD [address] [place] [address], [address] [place] [address] [email or web address] PCP - General Family Medicine 01/05/22 Demond Roger MD [address] [place] [address] [email or web address] Historical LMR Provider 02/24/15 10/21/21 Tianna Coello MD [address] [place] [address] [email or web address] Historical LMR Provider 02/24/15 10/21/21 Yasmeen Ward MD [email or web address] Historical LMR Provider 02/24/1510/21 Macho Vincent DO [address] [place] [address] [email or web address] Primary Oncologist Hematology and Oncology 09/13/21 Camila Nayak FNP [address] [place] [address] [email or web address] Nurse Practitioner Medical Oncology 11/03/21 Mile Reynolds CNP [address] [place] [address] [email or web address] Nurse Practitioner Medical Oncology 11/03/21 documented as of this encounter Additional Source Comments The information contained in this document represents components of the legal health record. It is not the complete legal health record.[facility]
--- OUTSIDE RECORDS SUMMARY | 2025-07-15 10:39 | XMS_ITS | Encounter Summary ---
Author Organization [facility] Address [address] [facility] [address] [place] [address] Phone Care Team Providers Care Auricular Therapist Name Role Phone Demond Roger MD Unavailable [phone] FeltTianna ng MD Unavailable [phone] Yasmeen Ward MD Unavailable [email or web address] Meghna Parson MD Primary Care Provi vipin Madalyn Rogers MD Primary Care Provide r Meghna Parson MD Primary Care Provi vipin Macho Vincent DO Unavailable Camila Nayak HEALTH RECORDS TECHNOLOGY TEACHER Unavailable Mile Reynolds RN BARIATRIC Unavailable Marian Alicia MD Primary Care Provider [phone] Encounter Details Date Type Department Care Team (Late st Contact Info) Description 11/12/2019 Ancillary Orders Virtual Department 30 [place] [address] Meghna Parson MD [address] [place], [place] [phone] [email or web address] goiter Social History Tobacco Use Types [...] aspiration recommended per ACR TI-RADS. POS - [id number] Narrative 11/30/2019 2:44 PM EST THYROID ULTRASOUND [...] aspiration recommended per ACR TI-RADS. POS - [id number] us Meghna Parson MD IMG US THYROID [...] documented as of this encounter Care Teams Auricular Therapist Relationship Specialty Start Date End Date Meghna Parson MD [email or web address] PCP - General Internal Medicine 08/19/17 11/29/19 Madalyn Rogers MD [address] [place] [address] PCP - General 11/30/19 12/30/20 Meghna Parson MD [email or web address] PCP - General Internal Medicine 12/31/20 01/04/22 Marian Alicia MD [address] [place] [address], [address] [place] [address] [email or web address] PCP - General Family Medicine 01/05/22 Demond Roger MD [address] [place] [address] [email or web address] Historical LMR Provider 02/24/15 10/21/21 Tianna Coello MD [address] [place] [address] [email or web address] Historical LMR Provider 02/24/15 10/21/21 Yasmeen Ward MD [email or web address] Historical LMR Provider 02/24/1510/21 Macho Vincent DO [address] [place] [address] [email or web address]. [facility] Primary Oncologist Hematology and Oncology 09/13/21 Camila Nayak FNP [address] [place] [address] [email or web address] Nurse Practitioner Medical Oncology 11/03/21 Miel Reynolds CNP [address] [place] [address] [email or web address] Nurse Practitioner Medical Oncology 11/03/21 documented as of this encounter Additional Source Comments The information contained in this document represents components of the legal health record. It is not the complete legal health record.[facility]
--- OUTSIDE RECORDS SUMMARY | 2025-07-15 10:39 | XMS_ITS | Encounter Summary ---
Author Organization [facility] Address [address] [address] Phone Care Team Providers Care Sr. Vendor Management Associate Name Role Phone Demond Roger MD Unavailable [phone] FeltTianna ng MD Unavailable [phone] Yasmeen Ward MD Unavailable [email or web address] Meghna Parson MD Primary Care Provi vipin Madalyn Rogers MD Primary Care Provide r Meghna Parson MD Primary Care Provi vipin Macho Vincent DO Unavailable [phone] Camila Nayak THERMOMETER PRODUCTION WORKER Unavailable [phone] RPG PROGRAMMER ANALYST Unavailable Marian Alicia MD Primary Care Provider [phone] Reason for Referral * Physical Therapy (Routine) - Closed Specialty Diagnoses / Procedures Referred By Thompson t Referred To Contact Physical Therapy Diagnoses SI (sacroiliac) pain Meghna Parson MD Phone: tel: mailto:[email or web address] ([employer]) [address] [place] [address] Phone: tel: Referral ID Status Reason Start Date Expiration Date Visits Re quested Visits Authorized [id number] Closed 01/27/2019 01/28/2020 1 1 Encounter Details Date Type Department Care Team (Latest Contact Info) Description 01/27/2019 Transcribe Orders [facility] Rehabilitation Services [address] [place] [address] Meghna Parson MD [address] [place] [address] [email or web address] SI (sacroiliac) pain (Primary Dx) Social History [...] Associated Diagnoses Order Schedule Ambulatory referral to [facility] Physical Therapy Outpatient Referral Routine SI [...] documented as of this encounter Care Teams Sr. Vendor Management Associate Relationship Specialty Start Date End Date Meghna Parson MD [email or web address] PCP - General Internal Medicine 08/19/17 11/29/19 Madalyn Rogers MD [address] [place] [address] PCP - General 11/30/19 12/30/20 Meghna Parson MD [email or web address] PCP - General Internal Medicine 12/31/20 01/04/22 Marian Alicia MD [address] [place] [address] [email or web address] PCP - General Family Medicine 01/05/22 Demond Roger MD [address] [place] [address] [email or web address] Historical LMR Provider 02/24/15 10/21/21 Tianna Coello MD [address] [place] [address] [email or web address] Historical LMR Provider 02/24/15 10/21/21 Yasmeen Ward MD [email or web address] Historical LMR Provider 02/24/1510/21 Macho Vincent DO [address] [place] [address] [email or web address]. [facility] Primary Oncologist Hematology and Oncology 09/13/21 Camila Nayak FNP [address] [place] [address] [email or web address] Nurse Practitioner Medical Oncology 11/03/21 Mile Reynolds CNP [address] [place] [address] [email or web address] Nurse Practitioner Medical Oncology 11/03/21 documented as of this encounter Additional Source Comments The information contained in this document represents components of the legal health record. It is not the complete legal health record.[facility]
--- OUTSIDE RECORDS SUMMARY | 2025-07-15 10:39 | XMS_ITS | Encounter Summary ---
Author Organization [facility] Address [address] [address] Phone Care Team Providers Care Envelope Press Operator Name Role Phone Demond Roger MD Unavailable [phone] FeltTianna ng MD Unavailable [phone] Yasmeen Ward MD Unavailable [email or web address] Meghna Parson MD Primary Care Provi vipin Macho Vincent W DO Unavailable [phone] Camila Nayak MARINE SAFETY OFFICER Unavailable [phone] SENIOR ENGINEERING TECHNICIAN Unavailable Marian Alicia MD Primary Care Provider [phone] Reason for Referral * Consultation (Elective) - Closed Specialty Diagnoses / Procedures Referred By Thompson t Referred To Contact Pulmonary Disease Meghna Parson MD Phone: tel: mailto:[email or web address] [address] [address] Phone: tel: Referral ID Status Reason Start Date Expiration Date Visits Re quested Visits Authorized [id number] Closed 08/25/2021 08/25/2022 1 1 Encounter Details Date Type Department Care Team (Late st Contact Info) Description 08/25/2021 Transcribe Orders [facility] Pulmonary, Allergy and Critical Care Medicine [address] [place] [address] [place] [address] Meghna Parson MD [address] [place] [address] [email or web address] Social History Tobacco Use Types Packs/Day Years [...] Associated Diagnoses Order Schedule Ambulatory referral to [facility] Pulmonology Outpatient Referral Routine Ordered: 08/25/2021 [...] documented as of this encounter Care Teams Envelope Press Operator Relationship Specialty Start Date End Date Meghna Parson MD [email or web address] PCP - General Internal Medicine 12/31/20 01/04/22 Marian Alicia MD [address] [place] [address], [address] [place] [address] [email or web address] PCP - General Family Medicine 01/05/22 Demond Rgoer MD [address] [place] [address] [email or web address] Historical LMR Provider 02/24/15 10/21/21 Tianna Coello MD [address] [place] [address] [email or web address] Historical LMR Provider 02/24/15 10/21/21 Yasmeen Ward MD [email or web address] Historical LMR Provider 02/24/1510/21 Macho Vincent DO [address] [place] [address] [email or web address] Primary Oncologist Hematology and Oncology 09/13/21 Camila Nayak FNP [address] [place] [address] [email or web address] Nurse Practitioner Medical Oncology 11/03/21 Mile Reynolds CNP [address] [place] [address] [email or web address] Nurse Practitioner Medical Oncology 11/03/21 documented as of this encounter Additional Source Comments The information contained in this document represents components of the legal health record. It is not the complete legal health record.[facility]
--- OUTSIDE RECORDS SUMMARY | 2025-07-15 10:39 | XMS_ITS | Encounter Summary ---
Author Organization [facility] Address [address] [facility] [address] [place] [address] Phone Care Team Providers Care Operator Lights Name Role Phone Demond Roger MD Unavailable [phone] FeltTianna ng MD Unavailable [phone] Yasmeen Ward MD Unavailable [email or web address] Meghna Parson MD Primary Care Provi vipin Madalyn Rogers MD Primary Care Provide r Meghna Parson MD Primary Care Provi vipin Macho Vincent DO Unavailable [phone] MAINTAINER Unavailable Mile Reynolds TRY ON BASTER Unavailable Marian Alicia MD Primary Care Provider [phone] Encounter Details Date Type Department Care Team (Late st Contact Info) Description 04/24/2018 Transcribe Orders [facility] Laboratory [address] [place] [address] Meghna Parson MD [address] [place], [place] [id number] [email or web address] Screening for tuberculosis (Primary Dx) Social History [...] * Quantiferon-TB Gold (04/24/2018 4:17 PM EDT) [facility] QuantiFERON-TB Gold Negative Negative [facility] Comment: (NOTE) No [...] MED/PATH SUPERIOR Mitogen minus Nil >10.00 IU/mL [facility]PER[facility] HODGE Nil Result 0.01 IU/mL [facility]PER[facility] HODGE Blood 04/24/2018 4:17 PM EDT 04/24/2018 4:18 PM EDT us Meghna Parson MD LAB BLOOD ORDERABLE S Final Result [facility] [address] [place] [address] documented in this encounter Visit Diagnoses Diagnosis [...] documented as of this encounter Care Teams Operator Lights Relationship Specialty Start Date End Date Meghna Parson MD [email or web address] PCP - General Internal Medicine 08/19/17 11/29/19 Madalyn Rogers MD [address] [place] [address] PCP - General 11/30/19 12/30/20 Meghna Parson MD [email or web address] PCP - General Internal Medicine 12/31/20 01/04/22 Marian Alicia MD [address] [place] [address] 7 [place] [address] [email or web address] PCP - General Family Medicine 01/05/22 Demond Roger MD [address] [place] [address] [email or web address] Historical LMR Provider 02/24/15 10/21/21 Tianna Coello MD [address] [place] [address] [email or web address] Historical LMR Provider 02/24/15 10/21/21 Yasmeen Ward MD [email or web address] Historical LMR Provider 02/24/1510/21 Macho Vincent DO [address] [place] [address] [email or web address] Primary Oncologist Hematology and Oncology 09/13/21 Camila Nayak FNP [address] [place] [address] [email or web address] Nurse Practitioner Medical Oncology 11/03/21 Mile Reynolds CNP [address] [place] [address] [email or web address] Nurse Practitioner Medical Oncology 11/03/21 documented as of this encounter Additional Source Comments The information contained in this document represents components of the legal health record. It is not the complete legal health record.[facility]
--- OUTSIDE RECORDS SUMMARY | 2025-07-15 10:40 | XMS_ITS | Encounter Summary ---
Author Organization [facility], Address [address] [place] [address] Phone Care Team Providers Care Supervisor Landscape Name Role Phone Aretha Bain CONDITIONER TUMBLER Primary Care Provider [phone] Encounter Details Date Type Department Care Team (Late st Contact Info) Description 08/12/2023 Documentation Only [facility] [address] [place] [phone] Marian Alicia MD [address] [place] [address] 7 [place] [address] Social History Tobacco Use Types Packs/Day Years [...] Visit [facility], [address] [place] [phone] Jamison Avila MD [address] [place] [phone] documented as of this encounter Visit Diagnoses Not on filedocumented in this encounter Care Teams Supervisor Landscape Relationship Specialty Start Date End Date Aretha Bain NP [address] [facility] 1 [place] [address] PCP - General Nurse Practitioner 04/12/25 documented as of this encounter
--- OUTSIDE RECORDS SUMMARY | 2025-07-15 10:40 | XMS_ITS | Clinical Summary ---
Author Organization [facility] Address [address] [address] Phone Care Team Providers Care Communication Coordinator Name Role Phone Macho Vincent DO Unavailable Camila Nayak APPLIED MARINE PHYSICS PROFESSOR Unavailable [phone] [employer] MOLD BUNCH TRIMMER Unavailable Marian Alicia MD Primary Care Provider [phone] Allergies Active Allergy Reactions Criticality Noted Date [...] a history of DVTs. She has a [place] filter in place and she is also [...] fitting for new mask. Input referral to [facility] sleep med. Assessment & Plan (04/02/2018 [...] issues or concerns. She understands and agrees. longterm (current) use of anticoagulants 03/01/2022 03/18/2024 Assessment [...] cor pulmonale 10/18/2021 01/23/2023 Overview (10/18/2021): 08/13/2021, [facility]. Assessment & Plan (04/17/2022 9:27 AM [...] staff to obtain images and records from [facility] and plan to review them once [...] Type Department Care Team Description 06/03/2025 Telephone [facility] Care [address] [...] Gets the flu shot elsewhere., Ordered By: [id number]) Pneumococcal polysaccharide PPSV23 05/25/2008, Pneumococcal, Unspecified Formulation [...] (07/27/2023 8:13 AM EDT) HDL 56 mg/dL [facility] Comment: Interpretation <40 mg/dL: Low HDL cholesterol (major risk factor for CHD) Greater than or equal to 60 mg/dL: High HDL cholesterol ( negative risk factor for CHD) HDL - cholesterol is affected by a number of factors, e.g. smoking, excerise, hormones, sex and age. CHOLESTEROL 271(H) 0 - 240 mg/dL [facility] TRIGLYCERIDES 193(H) 30 - 160 mg/dL [facility] LDL 176(H) 50 - 129 mg/dL [facility] Comment: LDL levels in terms of risk for coronary heart disease: <100 mg/dL: Optimal 100-129 mg/dL: Near or above optimal 130-159 mg/dL: Borderline high 160-189 mg/dL: High >190 mg/dL: Very High CARDIAC RISK RATIO 4.8(H) 3.3 - 4.4 [facility] Blood 07/27/2023 8:13 AM EDT 07/27/2023 8:21 AM EDT us Marian Alicia MD LAB BLOOD ORDERABLES Bonnie l Result Performing Organization Address City/State/[facility] Co de Phone Number [address] [address] * BI MAMMOGRAM SCREENING WITH TOMOSYNTHESIS WITH [...] Most Recently Relevant to Health Maintenance Insurance [facility] TO[facility]HER [facility] [place] [address] [place] [address] [place] [address] [facility] TO[facility]HER [facility] Advance Directives For more information, please contact: [phone] (9AM - 5PM Estella/[facility], Saturday-Saturday) Documents on File Type Date Recorded Patient Iron Plastic Bullet Maker Expl anation Advance Directive - Non Epic LMR 09/13/2011 12:00 AM Care Teams Communication Coordinator Relationship Specialty Start Date End Date Marian Alicia MD [address] [place] [address], [address] [place] [address] PCP - General Family Medicine 01/05/22 Macho Vincent DO [address] [place] [address] [email or web address] Primary Oncologist Hematology and Oncology 09/13/21 Camila Nayak FNP [address] [place] [address] [email or web address] Nurse Practitioner Medical Oncology 11/03/21 Mile Reynolds CNP [address] [place] [address] [email or web address] Nurse Practitioner Medical Oncology 11/03/21 Additional Source Comments The information contained in this document represents components of the legal health record. It is not the complete legal health record.[facility]
--- OUTSIDE RECORDS SUMMARY | 2025-07-15 10:40 | XMS_ITS | Encounter Summary ---
Author Organization [facility] Address 399 [facility] [address] [place] [address] Phone Care Team Providers Care Tar Worker Name Role Phone Demond Roger MD Unavailable [phone] FeltTianna ng MD Unavailable [phone] Yasmeen Ward MD Unavailable [email or web address] Meghna Parson MD Primary Care Provi vipin Madalyn Rogers MD Primary Care Provide r Meghna Parson MD Primary Care Provi vipin Macho Vincent DO Unavailable [phone] Camila Nayak GENERAL MERCHANDISE MANAGER Unavailable [phone] STRATEGIC SOURCING SPECIALIST Unavailable Marian Alicia MD Primary Care Provider [phone] Encounter Details Date Type Department Care Team (Late st Contact Info) Description 03/03/2018 Ancillary Orders [facility], X-Ray - [address] [address] Sabas, London Verde MD [address] [facility] [address] [place], [place] [phone] [email or web address] Dyspnea, unspecified type Social History [...] documented as of this encounter Care Teams Tar Worker Relationship Specialty Start Date End Date Meghna Parson MD [email or web address] PCP - General Internal Medicine 08/19/17 11/29/19 Madalyn Rogers MD [address] [place] [address] PCP - General 11/30/19 12/30/20 Meghna Parson MD [email or web address] PCP - General Internal Medicine 12/31/20 01/04/22 Marian Alicia MD [address] [place] [address] 7 [place] [address] [email or web address] PCP - General Family Medicine 01/05/22 Demond Roger MD [address] [place] [address] [email or web address] Historical LMR Provider 02/24/15 10/21/21 Tianna Coello MD [address] [place] [address] [email or web address] Historical LMR Provider 02/24/15 10/21/21 Yasmeen Ward MD [email or web address] Historical LMR Provider 02/24/1510/21 Macho Vincent DO [address] [place] [address] [email or web address] Primary Oncologist Hematology and Oncology 09/13/21 Camila Nayak FNP [address] [place] [address] [email or web address] Nurse Practitioner Medical Oncology 11/03/21 Mile Reynolds CNP [address] [place] [address] [email or web address] Nurse Practitioner Medical Oncology 11/03/21 documented as of this encounter Additional Source Comments The information contained in this document represents components of the legal health record. It is not the complete legal health record.[facility]
--- OUTSIDE RECORDS SUMMARY | 2025-07-15 10:40 | XMS_ITS | Encounter Summary ---
Author Organization [facility] Address 399 [facility] [address] [place] [address] Phone Care Team Providers Care Computer Forensics Investigator Name Role Phone Demond Roger MD Unavailable [phone] FeltTianna ng MD Unavailable [phone] Yasmeen Ward MD Unavailable [email or web address] Meghna Parson MD Primary Care Provi vipin Madalyn Rogers MD Primary Care Provide r Meghna Parson MD Primary Care Provi vipin Macho Vincent DO Unavailable Camila Nayak SALES ACTIVITY MANAGER Unavailable Mile Reynolds TECHNICIAN PLANT AND MAINTENANCE Unavailable Marian Alicia MD Primary Care Provider [phone] Encounter Details Date Type Department Care Team (Late st Contact Info) Description 11/12/2017 Ancillary Orders Virtual Department 30 [place] [address] Meghna Parson MD [address] [place], [place] [phone] [email or web address] Social History Tobacco Use Types Packs/Day Years [...] as of this encounter Care Teams Computer Forensics Investigator Relationship Specialty Start Date End Date Meghna Parson MD [email or web address] PCP - General Internal Medicine 08/19/17 11/29/19 Madalyn Rogers MD [address] [place] [address] PCP - General 11/30/19 12/30/20 Meghna Parson MD [email or web address] PCP - General Internal Medicine 12/31/20 01/04/22 Marian Alicia MD [address] [place] [address], [address] [place] [address] [email or web address] PCP - General Family Medicine 01/05/22 Demond Roger MD [address] [place] [address] [email or web address] Historical LMR Provider 02/24/15 10/21/21 Tianna Coello MD [address] [place] [address] [email or web address] Historical LMR Provider 02/24/15 10/21/21 Yasmeen Ward MD [email or web address] Historical LMR Provider 02/24/1510/21 Macho Vincent DO [address] [place] [address] [email or web address] Primary Oncologist Hematology and Oncology 09/13/21 Camila Nayak FNP [address] [place] [address] [email or web address] Nurse Practitioner Medical Oncology 11/03/21 Mile Reynolds CNP [address] [place] [address] [email or web address] Nurse Practitioner Medical Oncology 11/03/21 documented as of this encounter Additional Source Comments The information contained in this document represents components of the legal health record. It is not the complete legal health record.[facility]
--- OUTSIDE RECORDS SUMMARY | 2025-07-15 10:40 | XMS_ITS | Encounter Summary ---
Author Organization [facility] Address 399 [facility] [address] [place] [address] Phone Care Team Providers Care Blade Grader Operator Name Role Phone Dell Chiang MD Primary Care Provider [phone] Demond Roger MD Unavailable [phone] FeltTianna ng MD Unavailable [phone] Yasmeen Ward MD Unavailable [email or web address] Meghna Parson MD Primary Care Provi vipin Madalyn Rogers MD Primary Care Provide r Meghna Parson MD Primary Care Provi vipin Macho Vincent W DO Unavailable [phone] Camila Nayak MACHINIST SUPERVISOR OUTSIDE Unavailable [phone] OCCUPATIONAL HEALTH SPECIALIST Unavailable Marian Alicia MD Primary Care Provider [phone] Encounter Details Date Type Department Care Team (Late st Contact Info) Description 08/13/2017 Ancillary Orders [facility] Department [address] [place] [address] Meghna Parson MD [address] [place], [place] [phone] [email or web address] Chest discomfort Social History Tobacco Use Types [...] pharynx on clinical exam. COMPARISON: None FINDINGS: Cisco Administrator AP view of the abdomen shows a [...] pharynx on clinical exam. COMPARISON: None FINDINGS: [employer] Administrator AP view of the abdomen shows a [...] documented as of this encounter Care Teams Blade Grader Operator Relationship Specialty Start Date End Date Dell Chiang MD [address] [place] [address] PCP - General 02/18/15 08/18/17 Meghna Parson MD [email or web address] PCP - General Internal Medicine 08/19/17 11/29/19 Madalyn Rogers MD [address] [place] [address] PCP - General 11/30/19 12/30/20 Meghna Parson MD [email or web address] PCP - General Internal Medicine 12/31/20 01/04/22 aMrian Alicia MD [address] [place] [address] 7 [place] [address] [email or web address] PCP - General Family Medicine 01/05/22 Demond Roger MD [address] [place] [address] [email or web address] Historical LMR Provider 02/24/15 10/21/21 Tianna Coello MD [address] [place] [address] [email or web address] Historical LMR Provider 02/24/15 10/21/21 Yasmeen Ward MD [email or web address] Historical LMR Provider 02/24/1510/21 Macho Vincent DO [address] [place] [address] [email or web address]. [facility] Primary Oncologist Hematology and Oncology 09/13/21 Camila Nayak FNP 30 [place] [address] [email or web address] Nurse Practitioner Medical Oncology 11/03/21 Mile Reynolds CNP [address] [place], [place] [address] [email or web address] Nurse Practitioner Medical Oncology 11/03/21 documented as of this encounter Additional Source Comments The information contained in this document represents components of the legal health record. It is not the complete legal health record.[facility]
--- OUTSIDE RECORDS SUMMARY | 2025-07-15 10:40 | XMS_ITS | Encounter Summary ---
Author Organization [facility] Address [address] [facility] [address] [place] [address] Phone Care Team Providers Care Production Team Leader Name Role Phone Demond Roger MD Unavailable [phone] FeltTianna ng MD Unavailable [phone] Yasmeen Ward MD Unavailable [email or web address] Meghna Parson MD Primary Care Provi vipin Madalyn Rogers MD Primary Care Provide r Meghna Parson MD Primary Care Provi vipin Macho Vincent DO Unavailable Camila Nayak VAMP STRAP IRONER Unavailable Mile Reynolds FINAL INSPECTOR MOTORCYLES Unavailable Marian Alicia MD Primary Care Provider [phone] Encounter Details Date Type Department Care Team (Late st Contact Info) Description 02/13/2018 Transcribe Orders [facility] Laboratory [address] [place] [address] Meghna Parson MD [address] [place], [place] [address] [email or web address] Fatigue, unspecified type (Primary Dx) Social History [...] VITAMIN B12 410 232 - 1,245 pg/mL [facility] Comment:The reference range had been changed on January 24, 2018 from 243 - 894pg/mL to 232 - 1245 pg/mL. Blood 02/13/2018 10:0 8 AM EDT 02/13/2018 10:14 AM EDT us Meghna Parson MD LAB BLOOD ORDERABLE S Final Result [address] [address] * Iron and iron binding capacity (02/13/2018 10:08 AM EDT) IRON 70 30 - 160 ug/dL [facility] IRON BINDING CAPACITY 229 228 - 428 ug/dL [facility] TRANSFERRIN SATURAT. 31 15 - 50 % [facility] Blood 02/13/2018 10:0 8 AM EDT 02/13/2018 10:14 AM EDT us Meghna Parson MD LAB BLOOD ORDERABLE S Final Result Performing Organization Address City/[facility]/ZIP Co de Phone Number [address] [address] * (ABNORMAL) Ferritin (02/13/2018 10:08 AM EDT) FERRITIN 154(H) 13 - 150 ug/L [facility] Blood 02/13/2018 10:0 8 AM EDT 02/13/2018 10:14 AM EDT Meghna Parson MD LAB BLOOD ORDERABLE S Final Result Performing Organization Address City/[facility]/ZIP Co de Phone Number [address] [address] * CPK (creatine kinase) (02/13/2018 10:08 AM EDT) CREATINE KINASE 173 21 - 215 U/L [facility] Blood 02/13/2018 10:0 8 AM EDT 02/13/2018 10:14 AM EDT Meghna Parson MD LAB BLOOD ORDERABLE S Final Result Performing Organization Address [facility] Co de Phone Number [address] [address] * TSH with reflex (02/13/2018 10:08 AM EDT) TSH 1.69 0.27 - 4.20 uIU/mL [facility] Blood 02/13/2018 10:0 8 AM EDT 02/13/2018 10:14 AM EDT Meghna Parson MD LAB BLOOD ORDERABLE S Final Result Performing Organization Address City/[facility] Co de Phone Number [address] [address] * CBC and differential (02/13/2018 10:08 AM EDT) WBC 7.06 3.40 - 11.20 K/uL [facility] RBC 4.79 3.80 - 4.80 M/uL [facility] HGB 14.2 12.0 - 15.0 g/dL [facility] HCT 43.5 36.0 - 46.0 % [facility] PLT 262 130 - 400 K/uL [facility] MCV 90.8 79.0 - 98.0 fL [facility] MCH 29.6 27.0 - 34.8 pg [facility] MCHC 32.6 31.5 - 36.0 g/dL [facility] RDW 12.8 10.8 - 14.6 % [facility] MPV 9.8 9.4 - 12.4 fl [facility] NRBC 0.00 /100 WBCs [facility] ABSOLUTE NRBC 0.00 K/uL [facility] DIFF [employer] [facility] NEUTS 55.8 45.30 - 77.70 % [facility] LYMPHS 32.7 12.30 - 39.70 % [facility] MONOS 8.4 4.10 - 12.80 % [facility] EOS 2.1 0 - 7.2 % [facility] BASOS 0.4 0 - 2.80 % [facility] Granulocytes, immature (%) 0.6 0.0 - 0.9 % [facility] ABSOLUTE NEUTS 3.94 1.40 - 7.70 K/uL [facility] ABSOLUTE LYMPHS 2.31 0.60 - 3.20 K/uL [facility] ABSOLUTE MONOS 0.59 0.11 - 0.59 K/uL [facility] ABSOLUTE EOS 0.15 0.01 - 0.50 K/uL [facility] ABSOLUTE BASOS 0.03 0.00 - 0.08 K/uL [facility] Granulocytes, immature 0.04 0.00 - 0.05 K/uL [facility] Blood 02/13/2018 10:0 8 AM EDT 02/13/2018 10:14 AM EDT us Meghna Parson MD LAB BLOOD ORDERABLE S Final Result [facility] [address] [place] [address] * (ABNORMAL) Comprehensive metabolic panel (02/13/2018 10:08 AM EDT) Pathologist [facility] SODIUM 146 133 - 146 mmol/L [facility] POTASSIUM 4.2 3.3 - 5.1 mmol/L [facility] CHLORIDE 106 96 - 108 mmol/L [facility] CO2 27 21 - 35 mmol/L [facility] BUN 17 6 - 19 mg/dL [facility] CREATININE 1.00 0.5 - 1.5 mg/dL [facility] GLUCOSE 69(L) 70 - 99 mg/dL [facility] ALBUMIN 3.9 3.9 - 4.8 g/dL [facility] TOTAL PROTEIN 6.4(L) 6.5 - 8.0 g/dL [facility] CALCIUM 9.3 8.4 - 10.3 mg/dL [facility] ALKALINE PHOSPHATASE 77 39 - 117 U/L [facility] TOTAL BILIRUBIN 0.3 0.0 - 1.2 mg/dL [facility] AST 21 0 - 37 U/L [facility] ALT 13 0 - 40 U/L [facility] GLOBULIN 2.5 1 - 4.8 g/dL [facility] EGFR 65 >59 mL/min/1.7 3m2 [facility] Comment:If patient is black, multiply result by 1.159. The eGFR calculation has changed from the MDRD equation to the CKD-EPI equation as of December 17, 2017. ANION GAP 17 10 - 20 mmol/L [facility] Blood 02/13/2018 10:0 8 AM EDT 02/13/2018 10:14 AM EDT us Meghna Parson MD LAB BLOOD ORDERABLE S Final Result [address] [address] documented in this encounter Visit Diagnoses Diagnosis [...] as of this encounter Care Teams Production Team Leader Relationship Specialty Start Date End Date Meghna Parson MD [email or web address] PCP - General Internal Medicine 08/19/17 11/29/19 Madalyn Rogers MD [address] [place] [address] PCP - General 11/30/19 12/30/20 Meghna Parson MD [email or web address] PCP - General Internal Medicine 12/31/20 01/04/22 Marian Alicia MD [address] [place] [address] [email or web address] PCP - General Family Medicine 01/05/22 Demond Roger MD [address] [place] [address] [email or web address] Historical LMR Provider 02/24/15 10/21/21 Tianna Coello MD [address] [place] [address] [email or web address] Historical LMR Provider 02/24/15 10/21/21 Yasmeen Ward MD [email or web address] Historical LMR Provider 02/24/1510/21 Macho Vincent DO [address] [place] [address] [email or web address] Primary Oncologist Hematology and Oncology 09/13/21 Camila Nayak FNP [address] [place] [address] [email or web address] Nurse Practitioner Medical Oncology 11/03/21 Mile Reynolds CNP [address] [place] [address] [email or web address] Nurse Practitioner Medical Oncology 11/03/21 documented as of this encounter Additional Source Comments The information contained in this document represents components of the legal health record. It is not the complete legal health record.[facility]
--- OUTSIDE RECORDS SUMMARY | 2025-07-15 10:40 | XMS_ITS | Encounter Summary ---
Author Organization [facility] Address [address] [facility] [address] [place] [address] Phone Care Team Providers Care Director Prison Name Role Phone Demond Roger MD Unavailable [phone] FeltmateTianna MD Unavailable [phone] Yasmeen [place] MD Unavailable [email or web address] Meghna Parson MD Primary Care Provi vipin CarltonMacho gary W DO Unavailable [phone] Camila Nayak CUSTOMER QUALITY ENGINEER Unavailable Pack, Mile CERTIFIED PEER SPECIALIST Unavailable aMrian Alicia MD Primary Care Provider [phone] Encounter Details Date Type Department Care Team (Late st Contact Info) Description 06/13/2021 Transcribe Orders Virtual Department [address] [place] [address] Meghna Parson MD [address] [place], [place] [phone] [email or web address] Post-void dribbling (Primary Dx) Social History Tobacco [...] 2:37 PM EDT Normal bladder ultrasound POS [id number] Narrative 06/27/2021 2:37 PM EDT No comparison [...] (11% residual) IMPRESSION: Normal bladder ultrasound POS [id number] Meghna Parson MD IMG US RENAL Fin [...] as of this encounter Care Teams Director Prison Relationship Specialty Start Date End Date Meghna Parson MD [email or web address] PCP - General Internal Medicine 12/31/20 01/04/22 Marian Alicia MD [address] [place] [address], [address] [place] [address] [email or web address] PCP - General Family Medicine 01/05/22 Demond Roger MD [address] [place] [address] [email or web address] Historical LMR Provider 02/24/15 10/21/21 Tianna Coello MD [address] [place] [address] [email or web address] Historical LMR Provider 02/24/15 10/21/21 Yasmeen [place] MD [email or web address] Historical LMR Provider 02/24/1510/21 Macho Vincent DO [address] [place] [address] [email or web address] Primary Oncologist Hematology and Oncology 09/13/21 Camila Nayak FNP [address] [place] [address] [email or web address] Nurse Practitioner Medical Oncology 11/03/21 Mile Reynolds CNP [address] [place] [address] Nurse Practitioner Medical Oncology 11/03/21 documented as of this encounter Additional Source Comments The information contained in this document represents components of the legal health record. It is not the complete legal health record.[facility]
--- OUTSIDE RECORDS SUMMARY | 2025-07-15 10:40 | XMS_ITS | Encounter Summary ---
Author Organization [facility] Address [address] [facility] [address] [place] [address] Phone Care Team Providers Care Charhouse Worker Name Role Phone Demond Roger MD Unavailable [phone] FeltmateTianna MD Unavailable [phone] Yasmeen [place] MD Unavailable [email or web address] Meghna Parson MD Primary Care Provi vipin CarltonMacho gary W DO Unavailable Camila Nayak MANAGER GAMES Unavailable Pack, Mile EMPLOYEE WELLNESS/FITNESS COORDINATOR Unavailable Marian Alicia MD Primary Care Provider [phone] Encounter Details Date Type Department Care Team (Late st Contact Info) Description 05/18/2021 Ancillary Orders Virtual Department [address] [place] [address] Meghna Parson MD [address] [place], [place] [phone] [email or web address] Pain and swelling of left lower leg; [...] documented as of this encounter Care Teams Charhouse Worker Relationship Specialty Start Date End Date Meghna Parson MD [email or web address] PCP - General Internal Medicine 12/31/20 01/04/22 Marian Alicia MD [address] [place] [address], [address] [place] [address] [email or web address] PCP - General Family Medicine 01/05/22 Demond Roger MD [address] [place] [address] [email or web address] Historical LMR Provider 02/24/15 10/21/21 Tianna Coello MD [address] [place] [address] [email or web address] Historical LMR Provider 02/24/15 10/21/21 Yasmeen [place] MD [email or web address] Historical LMR Provider 02/24/1510/21 Macho Vincent DO [address] [place] [address] [email or web address] Primary Oncologist Hematology and Oncology 09/13/21 Camila Nayak FNP [address] [place] [address] [email or web address] Nurse Practitioner Medical Oncology 11/03/21 Mile Reynolds CNP [address] [place] [address] [email or web address] Nurse Practitioner Medical Oncology 11/03/21 documented as of this encounter Additional Source Comments The information contained in this document represents components of the legal health record. It is not the complete legal health record.[facility]
--- OUTSIDE RECORDS SUMMARY | 2025-07-15 10:40 | XMS_ITS | Encounter Summary ---
Author Organization [facility] Address [address] [facility] [address] [place] [address] Phone Care Team Providers Care Rn Pool Name Role Phone Dell Chiang MD Primary Care Provider [phone] Demond Roger MD Unavailable [phone] FeltTianna ng MD Unavailable [phone] Yasmeen [place] MD Unavailable [email or web address] Meghna Parson MD Primary Care Provi vipin Madalyn Rogers MD Primary Care Provide r Meghna Parson MD Primary Care Provi vipin Macho Vincent DO Unavailable [phone] Camila Nayak COUNTER ATTENDANT Unavailable Mile Reynolds SIEBEL ADMINISTRATOR Unavailable Marian Alicia MD Primary Care Provider [phone] Encounter Details Date Type Department Care Team (Late st Contact Info) Description 08/05/2017 Transcribe Orders [facility] Lab [address] [place] [address] Steven Trinidad DO [address] [facility], [address] [place] [address] [phone] (work) [email or web address] Severe persistent asthma, unspecified whether complicated (Primary [...] as of this encounter Care Teams Rn Pool Relationship Specialty Start Date End Date Dell Chiang MD [address] [facility] [address] [place] [address] PCP - General 02/18/15 08/18/17 Meghna Parson MD [email or web address] PCP - General Internal Medicine 08/19/17 11/29/19 Madalyn Rogesr MD [address] [place] [address] PCP - General 11/30/19 12/30/20 Meghna Parson MD [email or web address] PCP - General Internal Medicine 12/31/20 01/04/22 Marian Alicia MD [address] [place] [address], [address] [place] [address] [email or web address] PCP - General Family Medicine 01/05/22 Demond Roger MD [address] [place] [address] [email or web address] Historical LMR Provider 02/24/15 10/21/21 Tianna Coello MD [address] [place] [address] [email or web address] Historical LMR Provider 02/24/15 10/21/21 Yasmeen [place] MD [email or web address] Historical LMR Provider 02/24/1510/21 Macho Vincent DO [address] [place] [address] [email or web address] Primary Oncologist Hematology and Oncology 09/13/21 Camila Nayak FNP [address] [place] [address] [email or web address] Nurse Practitioner Medical Oncology 11/03/21 Mile Reynolds CNP [address] [place] [address] [email or web address] Nurse Practitioner Medical Oncology 11/03/21 documented as of this encounter Additional Source Comments The information contained in this document represents components of the legal health record. It is not the complete legal health record.[facility]
--- OUTSIDE RECORDS SUMMARY | 2025-07-15 10:40 | XMS_ITS | Encounter Summary ---
Author Organization [facility] Address [address] [facility] [address] [place] [address] Phone Care Team Providers Care Cargo Service Agent Name Role Phone Demond Roger MD Unavailable [phone] FeltTianna ng MD Unavailable [phone] Yasmeen [place] MD Unavailable [email or web address] Meghna Parson MD Primary Care Provi vipin Madalyn Rogers MD Primary Care Provide r Meghna Parson MD Primary Care Provi vipin Macho Vincent DO Unavailable Camila Nayak COLLECTION COORDINATOR Unavailable Mile Reynolds PILE FABRIC KNITTER Unavailable Marian Alicia MD Primary Care Provider [phone] Encounter Details Date Type Department Care Team (Latest Contact Info) Description 03/04/2018 Transcribe Orders [facility] Laboratory [address] [place] [address] SabasLondon MD [address] [facility] [address] [place], [place] [id number] [email or web address] Dyspnea, unspecified type (Primary Dx) Social [...] AM EDT) D-DIMER <215 <500 ng/mL [facility] Comment:In patients with low to moderate pre-test probability scores for VTE (PE or DVT), a D-Dimer cut-off less than 500 ng/mL ([facility]) has a negative predictive value (NPV) of 97 to 100%. Blood 03/04/2018 11:3 1 AM EDT 03/04/2018 11:33 AM EDT London Obregon MD LAB BLOOD ORDERABLES Final Resu lt Performing Organization Address City/State/[facility] Co de Phone Number [address] [address] documented in this encounter Visit Diagnoses Diagnosis Dyspnea, unspecified type- Primary documented in this encounter Additional Health Concerns Infection Onset Date Last Indicated Resolved Time CoV-Exposed Comment:Recent close contact documented in the COVID-19 PCR/PRO order 09/25/2021 10/03/2021 10/10/2021 1:[address] CoV-Presumed 10/09/2022 10/09/2022 10/30/2022 1:21 AM EST CoV-Risk 03/01/2023 03/01/2023 03/12/2023 1:22 AM EDT documented as of this encounter Care Teams Cargo Service Agent Relationship Specialty Start Date End Date Meghna Parson MD [email or web address] PCP - General Internal Medicine 08/19/17 11/29/19 Madalyn Rogers MD [address] [place] [address] PCP - General 11/30/19 12/30/20 Meghna Parson MD [email or web address] PCP - General Internal Medicine 12/31/20 01/04/22 Marian Alicia MD [address] [place] [address] [email or web address] PCP - General Family Medicine 01/05/22 Demond Roger MD [address] [place] [address] [email or web address] Historical LMR Provider 02/24/15 10/21/21 Tianna Coello MD [address] [place] [address] [email or web address] Historical LMR Provider 02/24/15 10/21/21 Yasmeen [place] MD [email or web address] Historical LMR Provider 02/24/1510/21 Macho Vincent DO [address] [place] [address] [email or web address]. [facility] Primary Oncologist Hematology and Oncology 09/13/21 Camila Nayak FNP [address] [place] [address] [email or web address] Nurse Practitioner Medical Oncology 11/03/21 Mile Reynolds CNP [address] [place] [address] [email or web address] Nurse Practitioner Medical Oncology 11/03/21 documented as of this encounter Additional Source Comments The information contained in this document represents components of the legal health record. It is not the complete legal health record.[facility]
--- OUTSIDE RECORDS SUMMARY | 2025-07-15 10:40 | XMS_ITS | Encounter Summary ---
Author Organization [facility] Address [address] [place] [address] Phone Care Team Providers Care Outdoor Education Teacher Name Role Phone Macho Vincent DO Unavailable Camila Nayak CERTIFIED CODER Unavailable PackTristanen BANANA CARRIER Unavailable Marian Alicia MD Primary Care Provider [phone] Encounter Details Date Type Department Care Team (Late st Contact Info) Description 08/13/2022 Procedure Pass [address] [address] Social History Tobacco Use Types Packs/Day Years [...] high school, GED, job training, learning the Ghanaian language, technical skills, or developing parenting skills)? [...] documented as of this encounter Care Teams Outdoor Education Teacher Relationship Specialty Start Date End Date Marian Alicia MD [address] [place] [address], [facility] [address] [place], [place] [phone] PCP - General Family Medicine 01/05/22 Macho Vincent DO [address] [place] [address] [email or web address] Primary Oncologist Hematology and Oncology 09/13/21 Camila Nayak FNP [address] [place] [address] [email or web address] Nurse Practitioner Medical Oncology 11/03/21 Mile Reynolds CNP [address] [place] [address] [email or web address] Nurse Practitioner Medical Oncology 11/03/21 documented as of this encounter Additional Source Comments The information contained in this document represents components of the legal health record. It is not the complete legal health record.[facility]
--- OUTSIDE RECORDS SUMMARY | 2025-07-15 10:40 | XMS_ITS | Encounter Summary ---
Author Organization [facility] Address [address] [employer] [address] [address] Phone Care Team Providers Care Dispensing Audiologist Name Role Phone Meghna Parson MD Primary Care Provi vipin Macho Vincent W DO Unavailable [phone] Camila Nayak PEST CONTROLLER ASSISTANT Unavailable [phone] Pack Mile TEST BORER HELPER Unavailable Marian Alicia MD Primary Care Provider [phone] Encounter Details Date Type Department Care Team (Late st Contact Info) Description 11/07/2021 Ancillary Orders [facility]Outside Imaging [address] [place], [place] [phone] System, Provider Not In, [place] [address] Social History Tobacco Use Types Packs/Day Years [...] documented as of this encounter Care Teams Dispensing Audiologist Relationship Specialty Start Date End Date Meghna Parson MD [email or web address] PCP - General Internal Medicine 12/31/20 01/04/22 Marian Alicia MD [address] [place] [address], [address] [place] [address] [email or web address] PCP - General Family Medicine 01/05/22 Macho Vincent DO [address] [place] [address] [email or web address] Primary Oncologist Hematology and Oncology 09/13/21 Camila Nayak FNP [address] [place] [address] [email or web address] Nurse Practitioner Medical Oncology 11/03/21 Mile Reynolds CNP [address] [place] [address] Nurse Practitioner Medical Oncology 11/03/21 documented as of this encounter Additional Source Comments The information contained in this document represents components of the legal health record. It is not the complete legal health record.[facility]
--- OUTSIDE RECORDS SUMMARY | 2025-07-15 10:40 | XMS_ITS | Encounter Summary ---
Author Organization [facility] Address [address] [facility] [address] [place] [address] Phone Care Team Providers Care Supervisor Force Adjustment Name Role Phone Dell Chiang MD Primary Care Provider [phone] Demond Roger MD Unavailable [phone] FeltTianna ng MD Unavailable [phone] Yasmeen Ward MD Unavailable [email or web address] Meghna Parson MD Primary Care Provi vipin Madalyn Rogers MD Primary Care Provide r Meghna Parson MD Primary Care Provi vipin Macho Vincent W DO Unavailable Camila Nayak ELECTROLYSIST Unavailable [phone] CLIENT SERVER PROGRAMMER Unavailable Marian Alicia MD Primary Care Provider [phone] Encounter Details Date Type Department Care Team (Late st Contact Info) Description 08/04/2017 Ancillary Orders [address] [address] Meghna Parson MD 6 [place] [address] [email or web address] Cystic thyroid nodule Social History Tobacco Use [...] as of this encounter Care Teams Supervisor Force Adjustment Relationship Specialty Start Date End Date Dell Chiang MD [address] [facility] [address] [place] [address] PCP - General 02/18/15 08/18/17 Meghna Parson MD [email or web address] PCP - General Internal Medicine 08/19/17 11/29/19 Madalyn Rogers MD [address] [place] [address] PCP - General 11/30/19 12/30/20 Meghna Parson MD [email or web address] PCP - General Internal Medicine 12/31/20 01/04/22 Marian Alicia MD [address] [place] [address] 7 [place] [address] [email or web address] PCP - General Family Medicine 01/05/22 Demond Roger MD [address] [place] [address] [email or web address] Historical LMR Provider 02/24/15 10/21/21 Tianna Coello MD [address] [place] [address] [email or web address] Historical LMR Provider 02/24/15 10/21/21 Yasmeen Ward MD [email or web address] Historical LMR Provider 02/24/1510/21 Macho Vincent DO 30 [place] [address] [email or web address] Primary Oncologist Hematology and Oncology 09/13/21 Camila Nayak FNP 30 [place] [address] [email or web address] Nurse Practitioner Medical Oncology 11/03/21 Mile Reynolds CNP [address] [place] [address] [email or web address] Nurse Practitioner Medical Oncology 11/03/21 documented as of this encounter Additional Source Comments The information contained in this document represents components of the legal health record. It is not the complete legal health record.[facility]
--- OUTSIDE RECORDS SUMMARY | 2025-07-15 10:41 | XMS_ITS | Clinical Summary ---
Author Organization [address] [facility] Address [address] [place] [address] Phone Care Team Providers Care Accounts Payable Analyst Name Role Phone Aretha Bain NP Primary Care Provider [phone] Family History Medical History Relation Name Comments [...] patient's age to complete this topic Insurance [phone] (Work) [address] [place] [address] MEDICAID - [place] Care Teams Accounts Payable Analyst Relationship Specialty Start Date End Date Aretha Bain NP [address] [place] [phone] PCP - General Nurse Practitioner 03/02/25
--- OUTSIDE RECORDS SUMMARY | 2025-07-15 10:41 | XMS_ITS | Encounter Summary ---
Author Organization [facility] Address [address] [address] [address] Phone Care Team Providers Care Casting Machine Service Operator Name Role Phone Meghna Parson MD Primary Care Provi vipin Macho Vincent W DO Unavailable [phone] Camila Nayak WELLNESS PROGRAM MANAGER Unavailable [phone] COMMODITY BUYER Unavailable Marian Alicai MD Primary Care Provider [phone] Encounter Details Date Type Department Care Team (Late st Contact Info) Description 11/07/2021 Ancillary Orders [facility],Outside Imaging 30 [place], [place] [id number] System, Provider [place] In, [place] [address] Social History Tobacco Use Types Packs/Day Years [...] documented as of this encounter Care Teams Casting Machine Service Operator Relationship Specialty Start Date End Date Meghna Parson MD [email or web address] PCP - General Internal Medicine 12/31/20 01/04/22 Marian Alicia MD [address] [place] [address], [address] [place] [address] [email or web address] PCP - General Family Medicine 01/05/22 Macho Vincent DO [address] [place] [address] [email or web address] U Primary Oncologist Hematology and Oncology 09/13/21 Camila Nayak FNP [address] [place] [address] [email or web address] Nurse Practitioner Medical Oncology 11/03/21 Mile Reynolds CNP [address] [place] [address] Nurse Practitioner Medical Oncology 11/03/21 documented as of this encounter Additional Source Comments The information contained in this document represents components of the legal health record. It is not the complete legal health record.[facility]
--- OUTSIDE RECORDS SUMMARY | 2025-07-15 10:41 | XMS_ITS | Encounter Summary ---
Author Organization [facility] Address [address] [place] [address] Phone Care Team Providers Care Advertising Coordinator Name Role Phone Macho Vincent DO Unavailable [phone] Camila Nayak MATHEMATICS FACULTY MEMBER Unavailable PackTristanen HAM FACER Unavailable Marian Alicia MD Primary Care Provider [phone] Encounter Details Date Type Department Care Team (Late st Contact Info) Description 03/01/2023 Procedure Pass [facility], Ct Scan - [address] [address] Social History Tobacco Use Types Packs/Day Years [...] high school, GED, job training, learning the Liberian language, technical skills, or developing parenting skills)? [...] 3:51 PM EDT Yanick Gonzales, ZOEY * [place] Suicide Severity Rating Scale (Screener/Recent Self-Report) Question [...] documented as of this encounter Care Teams Advertising Coordinator Relationship Specialty Start Date End Date Marian Alicia MD [address] [place] [address], [address] [place] [address] [email or web address] PCP - General Family Medicine 01/05/22 Macho Vincent DO [address] [place] [address] [email or web address] Primary Oncologist Hematology and Oncology 09/13/21 Camila Nayak FNP [address] [place] [address] [email or web address] Nurse Practitioner Medical Oncology 11/03/21 Mile Reynolds CNP [address] [place] [address] [email or web address] Nurse Practitioner Medical Oncology 11/03/21 documented as of this encounter Additional Source Comments The information contained in this document represents components of the legal health record. It is not the complete legal health record.[facility]
--- OUTSIDE RECORDS SUMMARY | 2025-07-15 10:41 | XMS_ITS | Encounter Summary ---
Author Organization [facility] Address [address] [facility] [address] [place] [address] Phone Care Team Providers Care Mold Making Plastics Sheets Supervisor Name Role Phone Demond Roger MD Unavailable [phone] FeltTianna ng MD Unavailable [phone] Yasmeen Ward MD Unavailable [email or web address] Meghna Parson MD Primary Care Provi vipin Madalyn Rogers MD Primary Care Provide r Meghna Parson MD Primary Care Provi vipin Macho Vincent DO Unavailable Camila Nayak LOAN SUPERVISOR Unavailable Mile Reynolds HOSE BUILDER Unavailable Marian Alicia MD Primary Care Provider [phone] Encounter Details Date Type Department Care Team (Late st Contact Info) Description 10/24/2017 Transcribe Orders [facility] 30 [place] [address] Bairon Aparicio MD, MS [address] [id number] [email or web address] Social History Tobacco Use Types Packs/Day Years [...] documented as of this encounter Care Teams Mold Making Plastics Sheets Supervisor Relationship Specialty Start Date End Date Meghna Parson MD [email or web address] PCP - General Internal Medicine 08/19/17 11/29/19 Madalyn Rogers MD 230 [place] [address] PCP - General 11/30/19 12/30/20 Meghna Parson MD [email or web address] PCP - General Internal Medicine 12/31/20 01/04/22 Marian Alicia MD [address] [place] [address], [address] [place] [address] [email or web address] PCP - General Family Medicine 01/05/22 Demond Roger MD [address] [place] [address] [email or web address] Historical LMR Provider 02/24/15 10/21/21 Tianna Coello MD [address] [place] [address] [email or web address] Historical LMR Provider 02/24/15 10/21/21 Yasmeen Ward MD [email or web address] Historical LMR Provider 02/24/1510/21 Macho Vincent DO [address] [place] [address] [email or web address] Primary Oncologist Hematology and Oncology 09/13/21 Camila Nayak FNP [address] [place] [address] [email or web address] Nurse Practitioner Medical Oncology 11/03/21 Mile Reynolds CNP [address] [place] [address] [email or web address] Nurse Practitioner Medical Oncology 11/03/21 documented as of this encounter Additional Source Comments The information contained in this document represents components of the legal health record. It is not the complete legal health record.[facility]
--- OUTSIDE RECORDS SUMMARY | 2025-07-15 10:41 | XMS_ITS | Encounter Summary ---
Author Organization [facility] Address [address] [facility] [address] [place] [address] Phone Care Team Providers Care Equipment Processer Storage Name Role Phone Demond Roger MD Unavailable [phone] FeltTianna ng MD Unavailable [phone] Yasmeen Ward MD Unavailable [email or web address] Meghna Parson MD Primary Care Provi vipin Madalyn Rogers MD Primary Care Provide r Meghna Parson MD Primary Care Provi vipin Macho Vincent DO Unavailable Camila Nayak SUPERVISOR DRYING AND WINDING Unavailable Mile Reynolds REVIEWER SALES Unavailable Marian Alicia MD Primary Care Provider [phone] Encounter Details Date Type Department Care Team (Late st Contact Info) Description 08/23/2017 Transcribe Orders [facility] Laboratory 30 [place] [address] Meghna Parson MD [address] [place], [place] [id number] [email or web address] Muscle pain (Primary Dx); Leg cramps; Polyuria [...] EST) PHOSPHORUS 2.3(L) 2.7 - 4.5 mg/dL [facility] Blood 08/23/2017 12:3 2 PM EST 08/23/2017 12:36 PM EST us Meghna Parson MD LAB BLOOD ORDERABLE S Final Result Performing Organization Address [facility]/ZIP Co de Phone Number [address] [address] * Magnesium (08/23/2017 12:32 PM EST) MAGNESIUM 1.8 1.6 - 2.6 mg/dL [facility] Blood 08/23/2017 12:3 2 PM EST 08/23/2017 12:36 PM EST us Meghna Parson MD LAB BLOOD ORDERABLE S Final Result Performing Organization Address [facility] Co de Phone Number [address] [address] * Urine culture (08/23/2017 12:32 PM EST) Specimen Source/ Description URINE CLEAN CATCH URINE URINE [facility] Special Requests None [facility] GRAM STAIN NO ORGANISMS SEEN [facility] Culture/Test 10,000 to 100,000 colony forming units per ml MIXED HAYLEE (3 OR MORE COLONY TYPES) Culture indicates contamination . Please resubmit if necessary. [facility] Report Status 08/25/2017 FINAL [facility] Urine (Urine) 08/23/2017 12: 32 PM EST 08/23/2017 12:37 PM EST Meghna Parson MD MICROBIOLOGY - GENE RAL ORDERABLES Final Result Performing Organization Address [facility] Co de Phone Number [address] [address] * (ABNORMAL) Urinalysis (08/23/2017 12:32 PM EST) COLOR STRAW(A) Yellow [facility] CLARITY Clear [facility] GLUCOSE Negative Negative [facility] BILI Negative Negative [facility] KETONES Negative Negative [facility] SPECIFIC GRAVITY <1.005 1.005 - 1.030 [facility] BLOOD Negative Negative [facility] PH 5.5 5.0 - 8.0 [facility] Protein-UA Negative Negative [facility] NITRITE Negative Negative [facility] Leukocyte esterase, ur Negative Negative [facility] Urine (Urine) 08/23/2017 12: 32 PM EST 08/23/2017 12:36 PM EST us Meghna Parson MD URINE ORDERABLES Fi nal Result Performing Organization Address City/[facility]/ZIP Co de Phone Number [address] [address] * Hemoglobin A1c (08/23/2017 12:32 PM EST) HEMOGLOBIN A1C 4.9 4.3 - 5.8 % [facility] Blood 08/23/2017 12:3 2 PM EST 08/23/2017 12:36 PM EST us Meghna Parson MD LAB BLOOD ORDERABLE S Final Result Performing Organization Address City/[facility]/ZIP Co de Phone Number [address] [address] * (ABNORMAL) CPK (creatine kinase) (08/23/2017 12:32 PM EST) CREATINE KINASE 483(H) 21 - 215 U/L [facility] Blood 08/23/2017 12:3 2 PM EST 08/23/2017 12:36 PM EST us Meghna Parson MD LAB BLOOD ORDERABLE S Final Result Performing Organization Address [facility]/ZIP Co de Phone Number [address] [address] * (ABNORMAL) CBC and differential (08/23/2017 12:32 PM EST) WBC 9.50 3.40 - 11.20 K/uL [facility] RBC 4.88(H) 3.80 - 4.80 M/uL [facility] HGB 14.6 12.0 - 15.0 g/dL [facility] HCT 43.7 36.0 - 46.0 % [facility] PLT 281 130 - 400 K/uL [facility] MCV 89.5 79.0 - 98.0 fL [facility] MCH 29.9 27.0 - 34.8 pg [facility] MCHC 33.4 31.5 - 36.0 g/dL [facility] RDW 12.8 10.8 - 14.6 % [facility] MPV 9.9 9.4 - 12.4 fl [facility] NRBC 0.00 /100 WBCs [facility] ABSOLUTE NRBC 0.00 K/uL [facility] DIFF METHOD Auto [facility] NEUTS 64.0 45.30 - 77.70 % [facility] LYMPHS 25.2 12.30 - 39.70 % [facility] MONOS 8.1 4.10 - 12.80 % [facility] EOS 1.6 0 - 7.2 % [facility] BASOS 0.4 0 - 2.80 % [facility] Granulocytes, immature (%) 0.7 0.0 - 0.9 % [facility] ABSOLUTE NEUTS 6.08 1.40 - 7.70 K/uL [facility] ABSOLUTE LYMPHS 2.39 0.60 - 3.20 K/uL [facility] ABSOLUTE MONOS 0.77(H) 0.11 - 0.59 K/uL [facility] ABSOLUTE EOS 0.15 0.01 - 0.50 K/uL [facility] ABSOLUTE BASOS 0.04 0.00 - 0.08 K/uL [facility] Granulocytes, immature 0.07(H) 0.00 - 0.05 K/uL [facility] Blood 08/23/2017 12:3 2 PM EST 08/23/2017 12:36 PM EST us Meghna Parson MD LAB BLOOD ORDERABLE S Final Result [address] [address] * TSH with reflex (08/23/2017 12:32 PM EST) TSH 1.44 0.27 - 4.20 uIU/mL [facility] Blood 08/23/2017 12:3 2 PM EST 08/23/2017 12:36 PM EST us Meghna Parson MD LAB BLOOD ORDERABLE S Edited Result - Final [facility] [address] [place] [address] * (ABNORMAL) Comprehensive metabolic panel (08/23/2017 12:32 PM EST) SODIUM 142 133 - 146 mmol/L [facility] POTASSIUM 3.7 3.3 - 5.1 mmol/L [facility] CHLORIDE 103 96 - 108 mmol/L [facility] CO2 28 21 - 35 mmol/L [facility] BUN 20(H) 6 - 19 mg/dL [facility] CREATININE 0.80 0.5 - 1.5 mg/dL [facility] GLUCOSE 67(L) 70 - 99 mg/dL [facility] ALBUMIN 4.3 3.9 - 4.8 g/dL [facility] TOTAL PROTEIN 6.5 6.5 - 8.0 g/dL [facility] CALCIUM 9.6 8.4 - 10.3 mg/dL [facility] ALKALINE PHOSPHATASE 73 39 - 117 U/L [facility] TOTAL BILIRUBIN 0.2 0 - 1.2 mg/dL [facility] AST 25 0 - 37 U/L [facility] ALT 13 0 - 40 U/L [facility] GLOBULIN 2.2 1 - 4.8 g/dL [facility] EGFR >60 >60 mL/min/1.7 3m2 [facility] Comment:Abnormal if <60. If patient is -Central African, multiply the result by 1.21. ANION GAP 15 10 - 20 mmol/L [facility] Blood 08/23/2017 12:3 2 PM EST 08/23/2017 12:36 PM EST us Meghna Parson MD LAB BLOOD ORDERABLE S Final Result [facility] [address] [place] [address] documented in this encounter Visit Diagnoses Diagnosis [...] documented as of this encounter Care Teams Equipment Processer Storage Relationship Specialty Start Date End Date Meghna Parson MD [email or web address] PCP - General Internal Medicine 08/19/17 11/29/19 Madalyn Rogers MD [address] [place] [address] PCP - General 11/30/19 12/30/20 Meghna Parson MD [email or web address] PCP - General Internal Medicine 12/31/20 01/04/22 Marian Alicia MD [address] [place] [address] 7 [place] [address] PCP - General Family Medicine 01/05/22 Demond Roger MD [address] [place] [address] [email or web address] Historical LMR Provider 02/24/15 10/21/21 Tianna Coello MD [address] [place] [address] [email or web address] Historical LMR Provider 02/24/15 10/21/21 Yasmeen Ward MD [email or web address] Historical LMR Provider 02/24/1510/21 Macho Vincent DO [address] [place] [address] [email or web address] Primary Oncologist Hematology and Oncology 09/13/21 Camila Nayak FNP [address] [place] [address] [email or web address] Nurse Practitioner Medical Oncology 11/03/21 Mile Reynolds CNP [address] [place] [address] [email or web address] Nurse Practitioner Medical Oncology 11/03/21 documented as of this encounter Additional Source Comments The information contained in this document represents components of the legal health record. It is not the complete legal health record.[facility]
--- OUTSIDE RECORDS SUMMARY | 2025-07-15 10:41 | XMS_ITS | Encounter Summary ---
Author Organization [facility] Address [address] [address] Phone Care Team Providers Care Bulk Plant Supervisor Name Role Phone Meghna Parson MD Primary Care Provi vipin Macho Vincent W DO Unavailable [phone] Camila Nayak LABOR RELATIONS CONSULTANT Unavailable [phone] EMPLOYMENT REPRESENTATIVE Unavailable Marian Alicia MD Primary Care Provider [phone] Encounter Details Date Type Department Care Team (Late st Contact Info) Description 11/07/2021 Ancillary Orders [facility],Outside Imaging [address] [place], [place] [phone] System, Provider Not In, [place] [address] Social History Tobacco Use Types Packs/Day Years [...] documented as of this encounter Care Teams Bulk Plant Supervisor Relationship Specialty Start Date End Date Meghna Parson MD [email or web address] PCP - General Internal Medicine 12/31/20 01/04/22 Marian Alicia MD [address] [place] [address], [address] [place] [address] [email or web address] PCP - General Family Medicine 01/05/22 Macho Vincent DO [address] [place] [address] [email or web address] U Primary Oncologist Hematology and Oncology 09/13/21 Camila Nayak FNP [address] [place] [address] [email or web address] Nurse Practitioner Medical Oncology 11/03/21 Mile Reynolds CNP [address] [place] [address] Nurse Practitioner Medical Oncology 11/03/21 documented as of this encounter Additional Source Comments The information contained in this document represents components of the legal health record. It is not the complete legal health record.[facility]
--- OUTSIDE RECORDS SUMMARY | 2025-07-15 10:41 | XMS_ITS | Encounter Summary ---
Author Organization [facility] Address [address] [employer] [facility] [address] [place] [address] Phone Care Team Providers Care Electronic Technician Name Role Phone Demond Roger MD Unavailable [phone] FeltmateTianna MD Unavailable [phone] Yasmeen Ward MD Unavailable [email or web address] Meghna Parson MD Primary Care Provi vipin CarltonMacho gary W DO Unavailable Camila Nayak FISH PACKER Unavailable Gail, Mile DRILLER AND BROACHER Unavailable Marian Alicia MD Primary Care Provider [phone] Encounter Details Date Type Department Care Team (Late st Contact Info) Description 05/22/2021 Ancillary Orders [facility], X-Ray - [address] [address] Sabas, [place] Verde MD [address] [facility] [address] [place], [place] [id number] [email or web address] Social History Tobacco Use Types [...] documented as of this encounter Care Teams Electronic Technician Relationship Specialty Start Date End Date Meghna Parson MD [email or web address] PCP - General Internal Medicine 12/31/20 01/04/22 Marian Alicia MD [address] [place] [address] 7 [place] [address] [email or web address] PCP - General Family Medicine 01/05/22 Demond Roger MD [address] [place] [address] [email or web address] Historical LMR Provider 02/24/15 10/21/21 Tianna Coello MD [address] [place] [address] [email or web address] Historical LMR Provider 02/24/15 10/21/21 Yasmeen Ward MD [email or web address] Historical LMR Provider 02/24/1510/21 Macho Vincent DO [address] [place] [address] [email or web address]. [facility] Primary Oncologist Hematology and Oncology 09/13/21 Camila Nayak FNP 30 [place] [address] [email or web address] Nurse Practitioner Medical Oncology 11/03/21 Mile Reynolds CNP [address] [place], [place] [address] [email or web address] Nurse Practitioner Medical Oncology 11/03/21 documented as of this encounter Additional Source Comments The information contained in this document represents components of the legal health record. It is not the complete legal health record.[facility]
--- OUTSIDE RECORDS SUMMARY | 2025-07-15 10:41 | XMS_ITS | Encounter Summary ---
Author Organization [facility] Address [address] [address] Phone Care Team Providers Care Furniture Designer Name Role Phone Meghna Parson MD Primary Care Provi vipin Macho Vincent W DO Unavailable [phone] Camila Nayak SENIOR DRAFTER Unavailable [phone] ORCHID WORKER Unavailable Marian Alicia MD Primary Care Provider [phone] Encounter Details Date Type Department Care Team (Late st Contact Info) Description 11/07/2021 Ancillary Orders [facility],Outside Imaging [address] [place], [place] [id number] System, Provider [place] In, [place] [address] Social History Tobacco Use Types Packs/Day Years [...] as of this encounter Care Teams Furniture Designer Relationship Specialty Start Date End Date Meghna Parson MD [email or web address] PCP - General Internal Medicine 12/31/20 01/04/22 Marian Alicia MD [address] [place] [address], [address] [place] [address] [email or web address] PCP - General Family Medicine 01/05/22 Macho Vincent DO [address] [place] [address] [email or web address] Primary Oncologist Hematology and Oncology 09/13/21 Camila Nayak FNP [address] [place] [address] [email or web address] Nurse Practitioner Medical Oncology 11/03/21 Mile Reynolds CNP [address] [place] [address] Nurse Practitioner Medical Oncology 11/03/21 documented as of this encounter Additional Source Comments The information contained in this document represents components of the legal health record. It is not the complete legal health record.[facility]
--- OUTSIDE RECORDS SUMMARY | 2025-07-15 10:41 | XMS_ITS | Encounter Summary ---
Author Organization [facility] Address [address] [address] Phone Care Team Providers Care Steeping Press Tender Name Role Phone Meghna Parson MD Primary Care Provi vipin Macho Vincent W DO Unavailable [phone] Camila Nayak ACTING INSTRUCTOR Unavailable [phone] INTERMEDIATE PROJECT MANAGER Unavailable Marian Alicia MD Primary Care Provider [phone] Encounter Details Date Type Department Care Team (Late st Contact Info) Description 11/07/2021 Ancillary Orders [facility],Outside Imaging [address] [place], [place] [phone] System, Provider [place] In, [place] [address] Social History Tobacco Use Types Packs/Day Years [...] documented as of this encounter Care Teams Steeping Press Tender Relationship Specialty Start Date End Date Meghna Parson MD [email or web address] PCP - General Internal Medicine 12/31/20 01/04/22 Marian Alicia MD [address] [place] [address], [address] [place] [address] [email or web address] PCP - General Family Medicine 01/05/22 Macho Vincent DO [address] [place] [address] [email or web address] Primary Oncologist Hematology and Oncology 09/13/21 Camila Nayak FNP [address] [place] [address] [email or web address] Nurse Practitioner Medical Oncology 11/03/21 Mile Reynolds CNP [address] [place] [address] Nurse Practitioner Medical Oncology 11/03/21 documented as of this encounter Additional Source Comments The information contained in this document represents components of the legal health record. It is not the complete legal health record.[facility]
--- OUTSIDE RECORDS SUMMARY | 2025-07-15 10:41 | XMS_ITS | Encounter Summary ---
Author Organization [facility] Address [address] [employer] [facility] [address] [place] [address] Phone Care Team Providers Care Excellence Specialist Name Role Phone Macho Vincent DO Unavailable [phone] Camila Nayka [employer] DIRECTOR Unavailable [phone] CORE WINDER MACHINE OPERATOR Unavailable Marian Alicia MD Primary Care Provider [phone] Reason for Visit * Reason Onset Date Comments Appointment 06/03/2025 Encounter Details Date Type Department Care Team (Late st Contact Info) Description 06/03/2025 Telephone TigerText [facility] General Surgical Care [address] [place], [place] [id number] Unknown, Unknown, Appointment Social History Tobacco Use [...] with the weight loss dept. Central Support Junior Linux Systems Administrator (Please do not reply to this user; this inbox is not monitored.) Thank you. documented in this encounter Plan of Treatment Not on file documented as of this encounter Visit Diagnoses Not on filedocumented in this encounter Additional Health Concerns Assessment Noted Time PHQ-2 Depression Total Score: 1 01/24/20 23 4:10 PM EDT documented as of this encounter Care Teams Excellence Specialist Relationship Specialty Start Date End Date Marian Alicia MD [address] [place] [address], [address] [place] [address] [email or web address] PCP - General Family Medicine 01/05/22 Macho Vincent DO [address] [place] [address] [email or web address] Primary Oncologist Hematology and Oncology 09/13/21 Camila Nayak FNP [address] [place] [address] Nurse Practitioner Medical Oncology 11/03/21 Mile Reynolds CNP [address] [place] [address] Nurse Practitioner Medical Oncology 11/03/21 documented as of this encounter Additional Source Comments The information contained in this document represents components of the legal health record. It is not the complete legal health record.[facility]
--- OUTSIDE RECORDS SUMMARY | 2025-07-15 10:41 | XMS_ITS | Encounter Summary ---
Author Organization [facility] Address [address] [address] Phone Care Team Providers Care Boardinghouse Keeper Name Role Phone Meghna Parson MD Primary Care Provi vipin Macho Vincent W DO Unavailable [phone] Camila Nayak ROLLING MILL OPERATOR Unavailable [address] TECHNICIANS AND TRADES WORKERS Unavailable Marian Alicia MD Primary Care Provider [phone] Encounter Details Date Type Department Care Team (Late st Contact Info) Description 11/07/2021 Ancillary Orders [facility],Outside Imaging [address] [place], [place] [phone] System, Provider [place] In, [place] [address] Social History Tobacco Use Types Packs/Day Years [...] documented as of this encounter Care Teams Boardinghouse Keeper Relationship Specialty Start Date End Date Meghna Parson MD [email or web address] PCP - General Internal Medicine 12/31/20 01/04/22 Marian Alicia MD [address] [place] [address], [address] [place] [address] [email or web address] PCP - General Family Medicine 01/05/22 Macho Vincent DO [address] [place] [address] [email or web address] Primary Oncologist Hematology and Oncology 09/13/21 Camila Nayak FNP [address] [place] [address] [email or web address] Nurse Practitioner Medical Oncology 11/03/21 Mile Reynolds CNP [address] [place] [address] Nurse Practitioner Medical Oncology 11/03/21 documented as of this encounter Additional Source Comments The information contained in this document represents components of the legal health record. It is not the complete legal health record.[facility]
--- OUTSIDE RECORDS SUMMARY | 2025-07-15 10:41 | XMS_ITS | Encounter Summary ---
Author Organization [facility] Address [address] [facility] [address] [place] [address] Phone Care Team Providers Care Lead Pressman Name Role Phone Demond Roger MD Unavailable [phone] FeltmateTianna MD Unavailable [phone] Yasmeen Ward MD Unavailable [email or web address] Meghna Parson MD Primary Care Provi vipin CarltonMacho gary W DO Unavailable [phone] Camila Nayak PATTERN RULER Unavailable GailTristanen JAVA WEB DEVELOPER Unavailable Marian Alicia MD Primary Care Provider [phone] Encounter Details Date Type Department Care Team (Late st Contact Info) Description 05/18/2021 Transcribe Orders Virtual Department [address] [place] [address] Meghna Parson MD [address] [place], [place] [phone] IT Cellulitis, unspecified cellulitis site (Primary Dx); Pain [...] documented as of this encounter Care Teams Lead Pressman Relationship Specialty Start Date End Date Meghna Parson MD [email or web address] PCP - General Internal Medicine 12/31/20 01/04/22 Marian Alicia MD [address] [place] [address], [address] [place] [address] [email or web address] PCP - General Family Medicine 01/05/22 Demond Roger MD [address] [place] [address] [email or web address] Historical LMR Provider 02/24/15 10/21/21 Tianna Coello MD [address] [place] [address] [email or web address] Historical LMR Provider 02/24/15 10/21/21 Yasmeen Ward MD [email or web address] Historical LMR Provider 02/24/1510/21 Macho Vincent DO [address] [place] [address] [email or web address] Primary Oncologist Hematology and Oncology 09/13/21 Camila Nayak FNP [address] [place] [address] [email or web address] Nurse Practitioner Medical Oncology 11/03/21 Mile Reynolds CNP [address] [place] [address] [email or web address] Nurse Practitioner Medical Oncology 11/03/21 documented as of this encounter Additional Source Comments The information contained in this document represents components of the legal health record. It is not the complete legal health record.[facility]
--- OUTSIDE RECORDS SUMMARY | 2025-07-15 10:41 | XMS_ITS | Clinical Summary ---
Author Organization [facility] Address [address] [place] [address] Care Team Providers Care Installer Apprentice Name Role Phone Meghna Parson Primary Care Provider Unava ilable Allergies Active Allergy Reactions Severity Noted Date Comments Na Duzxkciq-Vtdhtqsvsxdjbjfm-Tqxvryzngqfd 02/07/2017 Ciprofloxacin 02/07/2017 Macrobid 02/07/2017 Medications Medication Sig Dispensed Refills Start Date End Date Status clonazepam (KLONOPIN) 0.25 MG disintegrating tablet Take 0.25 mg by mouth 2 times daily as needed. 0 Active valacyclovir (VALTREX) 500 MG tablet Take 500 mg by mouth daily. 0 Active clonidine (CATAPRES) 0.1 MG tablet TAKE 1 TABLET BY MOUTH THREE TIMES A DAY 0 03/04/2020 Active Family History Medical History Relation Name Comments Melanoma Maternal Grandmother Melanoma Mother Melanoma Sister Relation Name Status Comments Maternal Grandmother Mother Sister Social History Tobacco Use Types Packs/Day Years Used Date Smoking Tobacco: Never Smokeless Tobacco: Never Sex Assigned at Date Recorded Not on file Last Filed Vital Signs Vital Sign Reading Time Taken Comments Blood Pressure 112/80 04/04/2020 1:45 PM EDT Pulse 60 04/02/2019 3:57 PM EDT Temperature 36.7 C (98.1 F) 04/04/2020 1:45 PM EDT Respiratory Rate - - Oxygen Saturation - - Inhaled Oxygen Concentration - - Weight 106.6 kg (235 lb) 04/04/2020 1:45 PM EDT Height 160 cm (5' 3 ) 04/04/2020 1:45 PM EDT Body Mass Index 41.63 04/04/2020 1:45 PM EDT Plan of Treatment Health Maintenance Due Date Last Done Comments Covid-19 Vaccine (#1) 1966 HEPATITIS C SCREENING 1984 DTAP/TDAP/TD (1 - Tdap) 1985 CHOLESTEROL SCREENING 1986 CERVICAL CANCER SCREENING 1987 BASELINE HEALTH EXAM 40-64 2006 MAMMOGRAM 2006 COLON CANCER SCREENING 2016 SHINGLES VACCINE (1 of 2) 2016 BMI CHECK/ADVISE 10/14/2024 04/04/2020, 04/02/2019 INFLUENZA (#1) 2025 07/20/2017 PNEUMOCOCCAL VACCINE FOR HIG H RISK PATIENTS (#1) 2031 05/05/2008 Care Teams Installer Apprentice Relationship Specialty Start Date End Date Meghna Parson PCP - General Internal Medicine 02/08/17
== END 2025-07-15 09:54 | disposition home or self-care (01) ==
LOC: HO.HBST 09:39
PROVIDERS: PCP Nurse Practitioner Family; Visit Provider Counselor Mental Health
DX: F43.10 Post-traumatic stress disorder, unspecified (principal); F33.2 Major depressive disorder, recurrent severe without psychotic features; F41.9 Anxiety disorder, unspecified; Z98.84 Bariatric surgery status
CPT/HCPCS: 90832

== ENCOUNTER 2025-08-02 13:07 | Outpatient (AMB) | payer OTHER, SELFPAY ==
--- NOTE | 2025-08-02 13:05 | MHC.WMTHER ---
Intake Intake Visit Reasons: VIDEO PO LSG 07/06/25 Allergies ciprofloxacin Allergy (Verified 07/14/25 13:15) rash nitrofurantoin (From Macrobid) Allergy (Verified 07/14/25 13:15) rash Sulfa (Sulfonamide Antibiotics) Allergy (Verified 07/14/25 13:15) rash quetiapine (From Seroquel) Adverse Reaction (Verified 07/14/25 13:15) suicidal ideation PFSH Medical History (Updated 07/22/25 @ 00:02 by Background Darenny) Steatosis, liver Hx pulmonary embolism Arthritis DJD (degenerative joint disease) Morbid obesity with BMI of 50.0-59.9, adult Sleep apnea treated with continuous positive airway pressure (CPAP) 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 DVT (deep venous thrombosis) History of sciatica NIURKA (generalized anxiety disorder) MDD (major depressive disorder), recurrent severe, without psychosis GERD (gastroesophageal reflux disease) Common variable immunodeficiency Hypertension Anxiety Depression PTSD (post-traumatic stress disorder) Surgical History (Updated 07/22/25 @ 00:02 by Background Jeff) S/P laparoscopic sleeve gastrectomy Hx of tonsillectomy (1975) H/O colonoscopy History of esophagogastroduodenoscopy (EGD) (05/26/25) History of inferior vena caval filter placement (08/14/21) History of hysterectomy (2003) Family History Mother Thyroid condition Acute ITP Anxiety Depression Father CHF (congestive heart failure) Enlarged heart Stomach cancer Social History Household Members: Family Household Members Other:: father Housing: House Are you a primary cardiac care nurse to a significant other at home: No Do you presently have visiting nurse or other home services: No 75 years or older and lives alone: No Alcohol intake: never Comment: Pt is A&O and ambulates independently w/walker Patient Tobacco Use Status: Never used Tobacco e-Cigarette/Vaping Use: Never Used service: No Current occupational status: employed Sexual orientation: did not discuss. Behavioral Health Assessment Weight Management Therapy Therapy Notes Details Subjective: The patient reports she has been doing well and is consistently following her prescribed meal plan. She expresses a sense of readiness to transition to the next phase of her weight management journey. Notably, she shares that her mood is currently good, which is a positive change compared to previous years when she typically experienced seasonal low mood or depressive symptoms at this time. Her current weight is 264 lbs, reflecting a total loss of 50 lbs since starting the program. She remains motivated and engaged in her treatment. Objective: The patient presented for a behavioral health post-operative follow-up. During the session, we reviewed her current functioning, daily routine, and any ongoing challenges. Cognitive-behavioral interventions were utilized to reinforce her progress and address anticipatory concerns about transitioning to the next phase. We explored her thoughts and feelings about change, using cognitive restructuring to challenge any residual negative beliefs about her ability to maintain progress. Behavioral activation was encouraged to support her positive mood and prevent seasonal decline. As a practical intervention, the patient was provided with a structured daily journal activity designed to enhance self-monitoring, increase self-awareness, and support her weight-loss journey. Psychoeducation was also provided regarding the importance of ongoing self-reflection and adaptive coping strategies as she advances in her program. The patient was receptive and engaged, demonstrating insight and readiness to implement new tools. Assessment/Response: Mental status: Within normal limits. The patient appeared alert, oriented, and appropriately groomed. Mood was described as ?good,? affect congruent, thought process logical and goal-directed, no evidence of SI/HI or psychosis, insight and judgment intact. Risk reported/identified: No current safety concerns or risk behaviors identified. Assessment & Plan Assessment & Plan (1) PTSD (post-traumatic stress disorder): Code(s): F43.10 - Post-traumatic stress disorder, unspecified (2) MDD (major depressive disorder), recurrent severe, without psychosis: Code(s): F33.2 - Major depressive disorder, recurrent severe without psychotic features (3) Anxiety: Code(s): F41.9 - Anxiety disorder, unspecified (4) Status post bariatric surgery: Onset Date: 07/06/25 Comment: Dr. Singh Code(s): Z98.84 - Bariatric surgery status Plan Continue behavioral health post-operative support, focusing on transition to the next phase, mood maintenance, and ongoing self-monitoring. Follow-up scheduled in approximately one month, next appointment on 08/30/2025 at 10am. Telehealth Telehealth Telehealth Platform: Doximity Location of provider rendering services: other (Home office. [place], [place]) Location of patient: address on file Patient Identification confirmed using: Name, : Yes Telehealth method: video Patient verbally consented to treatment: Yes Patient verbally consented to billing insurance company: Yes Patient informed of any privacy concerns related to visit: Yes Minutes spent on Phone/Video with Pt.: 55 C[place] [address] Tele Psytx >53 mins Patient Type Established Diagnoses PTSD (post-traumatic stress disorder) F43.10 MDD (major depressive disorder), recurrent severe, without psychosis F33.2 Anxiety F41.9 Status post bariatric surgery Z98.84 Time Spent (min) 55
== END 2025-08-02 13:48 | disposition home or self-care (01) ==
LOC: HO.HBST 13:07
PROVIDERS: PCP Nurse Practitioner Family; Visit Provider Counselor Mental Health
DX: F43.10 Post-traumatic stress disorder, unspecified (principal); F33.2 Major depressive disorder, recurrent severe without psychotic features; F41.9 Anxiety disorder, unspecified; Z98.84 Bariatric surgery status
CPT/HCPCS: 90837

== ENCOUNTER 2025-08-27 09:59 | Outpatient (AMB) | payer OTHER, SELFPAY ==
--- NOTE | 2025-08-27 10:35 | A.OFFVIS_ITS ---
VS Expanded 08/27/25 10:36 Height 5 ft 3 in Weight 253 lb BMI 44.8 Intake Visit Reasons: TV PO LSG 07/06/25 Allergies ciprofloxacin Allergy (Verified 07/14/25 13:15) rash nitrofurantoin (From Macrobid) Allergy (Verified 07/14/25 13:15) rash Sulfa (Sulfonamide Antibiotics) Allergy (Verified 07/14/25 13:15) rash quetiapine (From Seroquel) Adverse Reaction (Verified 07/14/25 13:15) suicidal ideation Medication List - Last Reconciled 08/27/25 by BRANDON Tidwell clonazepam 1 tab PO BID lamotrigine 2.5 tabs PO DAILY losartan 100 mg PO DAILY Held on 07/07/25. Instructions: Resume on 07/07/25. Only resume according to parameters given by Dr. Mccarthy ondansetron 4 mg PO Q12H pantoprazole 40 mg PO DAILY risperidone 1 mg PO BEDTIME sucralfate 10 mL PO BID venlafaxine ER 300 mg PO DAILY warfarin 5 mg PO DAILY Held on 07/07/25. Instructions: Resume on 07/07/25. Only resume when given instructions to do so by Dr. Mccarthy HPI Comments Details: This?is a?60?yo F who is s/p LSG 07/06/2025. Presents for 7 week post op visit. Weight loss of 23.2lb since last OV 6w ago. No complaints of nausea, emesis, abdominal pain or reflux, or constipation. Back on warfarin, has not needed to take BP meds, checking daily. 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 DVT (deep venous thrombosis) History of sciatica NIURKA (generalized anxiety disorder) MDD (major depressive disorder), recurrent severe, without psychosis GERD (gastroesophageal reflux disease) Common variable immunodeficiency Hypertension Anxiety Depression PTSD (post-traumatic stress disorder) Surgical History (Updated 07/22/25 @ 00:02 by Zaki Aguilar) S/P laparoscopic sleeve gastrectomy Hx of tonsillectomy (1975) H/O colonoscopy History of esophagogastroduodenoscopy (EGD) (05/26/25) History of inferior vena caval filter placement (08/14/21) History of hysterectomy (2003) Family History Mother Thyroid condition Acute ITP Anxiety Depression Father CHF (congestive heart failure) Enlarged heart Stomach cancer Social History Household Members: Family Household Members Other:: father Housing: House Are you a primary career services coordinator to a significant other at home: No Do you presently have visiting nurse or other home services: No 75 years or older and lives alone: No Alcohol intake: never Comment: Pt is A&O and ambulates independently w/walker Patient Tobacco Use Status: Never used Tobacco e-Cigarette/Vaping Use: Never Used service: No Current occupational status: employed Sexual orientation: did not discuss. Telehealth Telehealth Telehealth Platform: Telephone Location of provider rendering services: other Location of patient: address on file Patient Identification confirmed using: Name, : Yes Telehealth method: voice only Patient verbally consented to treatment: Yes Patient verbally consented to billing insurance company: Yes Patient informed of any privacy concerns related to visit: Yes Minutes spent on Phone/Video with Pt.: 12 Assessment & Plan Assessment & Plan (1) Morbid obesity: Code(s): E66.01 - Morbid (severe) obesity due to excess calories Category: Medical (2) S/P laparoscopic sleeve gastrectomy: Code(s): Z98.84 - Bariatric surgery status Category: Surgical Plan Pt will continue current meal plan per Dr Cuenca. She is getting treadmill set up tomorrow so will return to more regular exercise. Cleared for all activity. Continue PPI and carafate. Following with anticoagulation clinic and scheduled to see Sarika next week. RTC in Oct for TV and December for 6mo visit.
[2025-08-27 10:36] VITALS: BMI 44.8
== END 2025-08-27 10:52 | disposition home or self-care (01) ==
LOC: HO.HBS 09:59
PROVIDERS: PCP Nurse Practitioner Family; Visit Provider Physician Assistant Surgical
DX: E66.01 Morbid (severe) obesity due to excess calories (principal); Z68.41 Body mass index [BMI] 40.0-44.9, adult; Z98.84 Bariatric surgery status; Z90.3 Acquired absence of stomach [part of]
CPT/HCPCS: 99024

== ENCOUNTER 2025-08-30 10:16 | Outpatient (AMB) | payer OTHER, SELFPAY ==
--- NOTE | 2025-08-30 10:10 | A.OFFWM_ITS ---
Intake Intake Visit Reasons: VIDEO PO LSG 07/06/25 Allergies ciprofloxacin Allergy (Verified 07/14/25 13:15) rash nitrofurantoin (From Macrobid) Allergy (Verified 07/14/25 13:15) rash Sulfa (Sulfonamide Antibiotics) Allergy (Verified 07/14/25 13:15) rash quetiapine (From Seroquel) Adverse Reaction (Verified 07/14/25 13:15) suicidal ideation PFSH Medical History (Updated 07/22/25 @ 00:02 by Background Darenny) Steatosis, liver Hx pulmonary embolism Arthritis DJD (degenerative joint disease) Morbid obesity with BMI of 50.0-59.9, adult Sleep apnea treated with continuous positive airway pressure (CPAP) 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 DVT (deep venous thrombosis) History of sciatica NIURKA (generalized anxiety disorder) MDD (major depressive disorder), recurrent severe, without psychosis GERD (gastroesophageal reflux disease) Common variable immunodeficiency Hypertension Anxiety Depression PTSD (post-traumatic stress disorder) Surgical History (Updated 07/22/25 @ 00:02 by Background Jeff) S/P laparoscopic sleeve gastrectomy Hx of tonsillectomy (1975) H/O colonoscopy History of esophagogastroduodenoscopy (EGD) (05/26/25) History of inferior vena caval filter placement (08/14/21) History of hysterectomy (2003) Family History Mother Thyroid condition Acute ITP Anxiety Depression Father CHF (congestive heart failure) Enlarged heart Stomach cancer Social History Household Members: Family Household Members Other:: father Housing: House Are you a primary career development engineer to a significant other at home: No Do you presently have visiting nurse or other home services: No 75 years or older and lives alone: No Alcohol intake: never Comment: Pt is A&O and ambulates independently w/walker Patient Tobacco Use Status: Never used Tobacco e-Cigarette/Vaping Use: Never Used service: No Current occupational status: employed Sexual orientation: did not discuss. Behavioral Health Assessment Weight Management Therapy Therapy Notes Details Subjective: The patient reports that her mood has been fluctuating, attributing these changes to ongoing seasonal mood issues. She describes feeling very tired and notes that her energy levels have been lower than usual. She is currently prescribed Wellbutrin 450mg, venlafaxine hydrochloride (Effexor) 300mg, risperidone 1mg, lamotrigine 250mg (2.5 tabs of 100mg), and clonazepam 1mg twice daily. Her most recent weight is 253 lbs. Regarding her nutrition, she is following a plan of three shakes, one bar, and one meal daily, with 2FT/2FT. Objective: The patient attended a behavioral health follow-up via video. During the session, we explored ongoing emotional triggers contributing to her seasonal mood fluctuations and fatigue. Cognitive-behavioral interventions were used to help her identify patterns in her mood and energy, and to challenge unhelpful thoughts related to her current symptoms. Together, we brainstormed alternative coping skills, including structured daily routines, increased engagement in pleasurable activities, and the use of relaxation techniques. A behavioral activation plan was collaboratively developed, focusing on scheduling small, manageable activities to boost mood and energy, and to counteract withdrawal tendencies. The patient was receptive to these strategies and expressed willingness to implement them between sessions. Assessment/Response: * Mental status: Alert, cooperative, and appropriately groomed. Mood described as ?up and down, mostly tired.? Affect congruent. Thought process logical and goal-directed. No suicidal or homicidal ideation. No evidence of psychosis. Insight and judgment intact. * Risk reported/identified: No current safety concerns or risk behaviors identified. Assessment & Plan Assessment & Plan (1) PTSD (post-traumatic stress disorder): Code(s): F43.10 - Post-traumatic stress disorder, unspecified (2) MDD (major depressive disorder), recurrent severe, without psychosis: Code(s): F33.2 - Major depressive disorder, recurrent severe without psychotic features (3) Anxiety: Code(s): F41.9 - Anxiety disorder, unspecified (4) Status post bariatric surgery: Onset Date: 07/06/25 Comment: Dr. Singh Code(s): Z98.84 - Bariatric surgery status Plan Continue behavioral health support with a focus on mood stabilization, energy management, and adherence to the behavioral activation plan. Next appointment scheduled in approximately six weeks, on 10/11/25 at 9am via video. Telehealth Telehealth Telehealth Platform: [facility] Location of provider rendering services: other (Home office. [place], [place]) Location of patient: address on file Patient Identification confirmed using: Name, : Yes Telehealth method: video Patient verbally consented to treatment: Yes Patient verbally consented to billing insurance company: Yes Patient informed of any privacy concerns related to visit: Yes Minutes spent on Phone/Video with Pt.: 50 Coding [place] [address] Tele Psytx 45 mins Patient Type Established Diagnoses PTSD (post-traumatic stress disorder) F43.10 MDD (major depressive disorder), recurrent severe, without psychosis F33.2 Anxiety F41.9 Status post bariatric surgery Z98.84 Time Spent (min) 50
== END 2025-08-30 11:12 | disposition home or self-care (01) ==
LOC: HO.HBST 10:16
PROVIDERS: PCP Nurse Practitioner Family; Visit Provider Counselor Mental Health
DX: F43.10 Post-traumatic stress disorder, unspecified (principal); F33.2 Major depressive disorder, recurrent severe without psychotic features; F41.9 Anxiety disorder, unspecified; Z98.84 Bariatric surgery status
CPT/HCPCS: 90834